=== PATIENT | male | born 1960 | race Caucasian/White ===

== ENCOUNTER → 2019-03-14 | Outpatient (CLI) | payer MEDICARE, MEDICAID ==
[~2019-03-14] MED LIST: ALBU17IN2 IN; BACT800T OR; BENA25CA PO; BUPR15TA OR; CLON-412 PO; CLON1TAB OR; CLOZ100T2 PO; CLOZ100T45 OR; CLOZ200T OR; CLOZ200T PO; CLOZAPINE; COLA100C2 OR; CYMB1CAP PO; CYMBALTA PO; DEPA250T3 OR; DEPA500T OR; DEPA500T2 OR; DIAZ5TAB OR; DOCU100T PO; FLOM0.4C39 OR; HYDR-4274 PO; HYDR50IN3 IM; LEVO75TA2 OR; LEVO88TA2 PO; LOVA1CAP16 PO; MIRALEX OR; MIRALEX PO; NEUR100C OR; NICO21DI4 TD; OXYB5TAB OR; OXYB5TAB4 OR; OXYB5TAB80 PO; PANT40TA2 PO; PAXIL PO; PRIL20CA OR; PROVENTIL INH; SAPHRIS SL; SERO1TAB OR; SEROQUEL PO; TAMS0.4C PO; TERA1CAP3 OR; TERA2CAP OR; TERA2CAP3 OR; TESS100C OR; TRIC145T19 OR; VENL75TA2 OR; VENTAER IN; VENTAER INH; ZYPR10TA PO; ZYPR1TAB4 OR; [UNRECOGNIZED DRUG - CODE] PO; clozaril
[2019-03-14 08:48] LABS: BASO # 0.1 10^3/uL (0.0-0.2); BASO % 0.8 % (0.0-1.0); EOS # 0.2 10^3/uL (0.0-0.50); EOS % 2.5 % (0.0-3.0); HEMATOCRIT 41.2 % (42.0-52.0); HEMOGLOBIN 13.1 g/dl (13.5-17.5); LYMPH # 2.9 10^3/uL (1.5-4.5); LYMPH % 36.4 % (24.0-44.0); MEAN CORPUSCULAR HEMOGLOBIN 31.2 pg (27.0-33.0); MEAN CORPUSCULAR HGB CONC 31.8 g/dl (32.0-36.5); MEAN CORPUSCULAR VOLUME 98.1 fl (80.0-96.0); MONO # 0.9 10^3/uL (0.0-0.8); MONO % 11.1 % (0.0-5.0); NEUTROPHILS # 3.9 10^3/uL (1.8-7.7); NEUTROPHILS % 48.6 % (36.0-66.0); PLATELET COUNT, AUTOMATED 186 10^3/uL (150-450); WHITE BLOOD COUNT 7.9 10^3/uL (4.0-10.0)
[2019-03-16 08:07] LABS: CLOZAPINE 1 242 ng/mL (350-650); CLOZAPINE 2 126 ng/mL (Not Estab.); CLOZAPINE 3 368 ng/mL (.)
== END ==
LOC: M LAB 07:52
PROVIDERS: ATTEND Psychiatry & Neurology Child & Adolescent Psychiatry
DX: Z79.899 Other long term (current) drug therapy (principal)

== ENCOUNTER → 2019-03-29 | Outpatient (REF) | payer MEDICARE, MEDICAID ==
[2019-03-29 18:25] LABS: BASO # 0.1 10^3/uL (0.0-0.2); BASO % 0.7 % (0.0-1.0); EOS # 0.2 10^3/uL (0.0-0.50); EOS % 1.8 % (0.0-3.0); HEMOGLOBIN 14.1 g/dl (13.5-17.5); LYMPH # 2.3 10^3/uL (1.5-4.5); LYMPH % 26.7 % (24.0-44.0); MEAN CORPUSCULAR HEMOGLOBIN 32.1 pg (27.0-33.0); MEAN CORPUSCULAR HGB CONC 32.8 g/dl (32.0-36.5); MEAN CORPUSCULAR VOLUME 97.9 fl (80.0-96.0); MONO % 11.4 % (0.0-5.0); NEUTROPHILS # 5.1 10^3/uL (1.8-7.7); NEUTROPHILS % 58.8 % (36.0-66.0); PLATELET COUNT, AUTOMATED 178 10^3/uL (150-450); RED BLOOD COUNT 4.39 10^6/uL (4.30-6.10); WHITE BLOOD COUNT 8.7 10^3/uL (4.0-10.0)
[2019-03-29 18:38] LABS: ALT/SGPT 24 U/L (12-78); BILIRUBIN,TOTAL 0.3 MG/DL (0.2-1.0); BLOOD UREA NITROGEN 17 MG/DL (7-18); CALCIUM LEVEL 8.4 MG/DL (8.5-10.1); CARBON DIOXIDE LEVEL 28 MEQ/L (21-32); CHLORIDE LEVEL 108 MEQ/L (98-107); CHOLESTEROL LEVEL 151 MG/DL (<200); CHOLESTEROL RISK RATIO 3.145 (<5); GLOMERULAR FILTRATION RATE > 60.0 (>56); GLUCOSE, FASTING 109 MG/DL (70-100); HDL CHOLESTEROL 48 MG/DL (>40); LDL CHOLESTEROL 79 MG/DL (<100); NON-HDL-C 103 MG/DL; POTASSIUM SERUM 4.7 MEQ/L (3.5-5.1); SODIUM LEVEL 141 MEQ/L (136-145); TOTAL PROTEIN 6.4 GM/DL (6.4-8.2); TRIGLYCERIDES LEVEL 121 MG/DL (<150)
[2019-03-29 19:44] LABS: HEMOGLOBIN A1c 5.5 %
== END ==
LOC: M LAB REF 17:57
PROVIDERS: ATTEND Nurse Practitioner Family
DX: Z13.9 Encounter for screening, unspecified (principal); E03.9 Hypothyroidism, unspecified; Z79.899 Other long term (current) drug therapy

== ENCOUNTER → 2019-04-06 | Outpatient (CLI) | payer MEDICARE, MEDICAID ==
[2019-04-06 09:25] LABS: BASO % 0.5 % (0.0-1.0); EOS # 0.2 10^3/uL (0.0-0.50); EOS % 2.3 % (0.0-3.0); HEMATOCRIT 40.9 % (42.0-52.0); HEMOGLOBIN 13.7 g/dl (13.5-17.5); LYMPH # 2.9 10^3/uL (1.5-4.5); LYMPH % 35.6 % (24.0-44.0); MEAN CORPUSCULAR HEMOGLOBIN 32.7 pg (27.0-33.0); MEAN CORPUSCULAR HGB CONC 33.5 g/dl (32.0-36.5); MEAN CORPUSCULAR VOLUME 97.6 fl (80.0-96.0); MONO # 0.9 10^3/uL (0.0-0.8); MONO % 11.3 % (0.0-5.0); NEUTROPHILS # 4.1 10^3/uL (1.8-7.7); NEUTROPHILS % 49.9 % (36.0-66.0); PLATELET COUNT, AUTOMATED 182 10^3/uL (150-450); RED BLOOD COUNT 4.19 10^6/uL (4.30-6.10); WHITE BLOOD COUNT 8.2 10^3/uL (4.0-10.0)
[2019-04-11 08:09] LABS: CLOZAPINE 1 227 ng/mL (350-650); CLOZAPINE 2 114 ng/mL (Not Estab.); CLOZAPINE 3 341 ng/mL (.)
== END ==
LOC: M LAB 08:31
PROVIDERS: ATTEND Psychiatry & Neurology Child & Adolescent Psychiatry
DX: Z51.81 Encounter for therapeutic drug level monitoring (principal); Z79.899 Other long term (current) drug therapy

== ENCOUNTER → 2019-05-02 | Outpatient (CLI) | payer MEDICARE, MEDICAID ==
[2019-05-02 08:54] LABS: BASO # 0.1 10^3/uL (0.0-0.2); BASO % 0.6 % (0.0-1.0); EOS # 0.2 10^3/uL (0.0-0.50); EOS % 1.9 % (0.0-3.0); HEMATOCRIT 39.9 % (42.0-52.0); HEMOGLOBIN 13.4 g/dl (13.5-17.5); LYMPH # 3.2 10^3/uL (1.5-4.5); MEAN CORPUSCULAR HGB CONC 33.6 g/dl (32.0-36.5); MEAN CORPUSCULAR VOLUME 95.2 fl (80.0-96.0); MONO # 1.1 10^3/uL (0.0-0.8); MONO % 11.8 % (0.0-5.0); NEUTROPHILS # 4.8 10^3/uL (1.8-7.7); NEUTROPHILS % 51.3 % (36.0-66.0); PLATELET COUNT, AUTOMATED 163 10^3/uL (150-450); RED BLOOD COUNT 4.19 10^6/uL (4.30-6.10); WHITE BLOOD COUNT 9.4 10^3/uL (4.0-10.0)
[2019-05-05 09:21] LABS: CLOZAPINE 1 224 ng/mL (350-650); CLOZAPINE 2 92 ng/mL (Not Estab.); CLOZAPINE 3 316 ng/mL (.)
== END ==
LOC: M LAB 08:23
PROVIDERS: ATTEND Psychiatry & Neurology Child & Adolescent Psychiatry
DX: Z79.899 Other long term (current) drug therapy (principal)

== ENCOUNTER 2019-05-29 21:22 | Inpatient (IN) | payer MEDICARE, MEDICAID ==
[~2019-05-29] VITALS: Ht 177.8 cm; Wt 80.7 kg
[2019-05-29] MEDS ORDERED: LORazepam 2 MG TAB PO STA (23:27)
[2019-05-29] MEDS ORDERED: DERMABOND TOPICAL SKIN ADHESIVE TOP ONE (23:30)
[2019-05-29] MEDS ORDERED: LIDOCAINE 2% W/EPIN INJ 20ML **PRES FREE INJ ONE (23:30)
[2019-05-30 00:25] LABS: AMPHETAMINES LEVEL URINE NEGATIVE (NEGATIVE); BARBITURATES URINE NEGATIVE (NEGATIVE); BENZODIAZEPINES URINE NEGATIVE (NEGATIVE); CANNABINOIDS URINE NEGATIVE (NEGATIVE); COCAINE METABOLITE URINE NEGATIVE (NEGATIVE); METHADONE URINE NEGATIVE (NEGATIVE); OPIATES URINE NEGATIVE (NEGATIVE); PHENCYCLIDINE URINE NEGATIVE (NEGATIVE)
[2019-05-30 00:52] LABS: BASO % 0.4 % (0.0-1.0); EOS # 0.2 10^3/uL (0.0-0.50); EOS % 1.6 % (0.0-3.0); HEMATOCRIT 39.2 % (42.0-52.0); HEMOGLOBIN 13.5 g/dl (13.5-17.5); LYMPH # 4.2 10^3/uL (1.5-4.5); LYMPH % 39.8 % (24.0-44.0); MEAN CORPUSCULAR HEMOGLOBIN 32.2 pg (27.0-33.0); MEAN CORPUSCULAR HGB CONC 34.4 g/dl (32.0-36.5); MEAN CORPUSCULAR VOLUME 93.6 fl (80.0-96.0); MONO # 1.1 10^3/uL (0.0-0.8); PLATELET COUNT, AUTOMATED 169 10^3/uL (150-450); RED BLOOD COUNT 4.19 10^6/uL (4.30-6.10); WHITE BLOOD COUNT 10.5 10^3/uL (4.0-10.0)
[2019-05-30 01:48] LABS: ACETAMINOPHEN LEVEL < 2.0 UG/ML (10.0-30.0); ALT/SGPT 22 U/L (12-78); BILIRUBIN,DIRECT < 0.1 MG/DL (0.0-0.2); BILIRUBIN,TOTAL 0.2 MG/DL (0.2-1.0); BLOOD UREA NITROGEN 15 MG/DL (7-18); CALCIUM LEVEL 8.5 MG/DL (8.5-10.1); CARBON DIOXIDE LEVEL 29 MEQ/L (21-32); CHLORIDE LEVEL 110 MEQ/L (98-107); CPK CREATINE PHOSPHOKINASE 64 U/L (39-308); CREATININE FOR GFR 1.05 MG/DL (0.70-1.30); ETHYL ALCOHOL (ETHANOL) < 0.003 % (0.000-0.010); GLOMERULAR FILTRATION RATE > 60.0 (>56); GLUCOSE, FASTING 97 MG/DL (70-100); POTASSIUM SERUM 4.1 MEQ/L (3.5-5.1); SALICYLATE LEVEL < 1.7 MG/DL (5.0-30.0); SODIUM LEVEL 143 MEQ/L (136-145); TOTAL PROTEIN 6.1 GM/DL (6.4-8.2)
[2019-05-30] MEDS ORDERED: ACETAMINOPHEN TAB 650MG DOSE (2X325MG) PO PRN (02:30)
[2019-05-30] MEDS ORDERED: MOM 30ML SUSPENSION UDC PO PRN (02:30)
[2019-05-30] MEDS ORDERED: MAALOX 30 ML SUSP *UDC PO PRN (02:30)
[2019-05-30] MEDS ORDERED: DOCU100C16 PO (03:11)
[2019-05-30] MEDS ORDERED: DIVA500T94 PO (03:11)
[2019-05-30] MEDS ORDERED: DOCU100C17 PO (03:11)
[2019-05-30] MEDS ORDERED: ASPI-161 PO (03:11)
[2019-05-30] MEDS ORDERED: CLON-412 PO (03:11)
[2019-05-30] MEDS ORDERED: TRIH5TAB PO (03:11)
[2019-05-30] MEDS ORDERED: SYNT75TA PO (03:11)
[2019-05-30] MEDS ORDERED: PANT40TA3 PO (03:11)
[2019-05-30] MEDS ORDERED: [UNRECOGNIZED DRUG - OTHER] MT (03:11)
[2019-05-30] MEDS ORDERED: DULO1CAP6 PO (03:11)
[2019-05-30] MEDS ORDERED: DIVA250T67 PO (03:11)
[2019-05-30] MEDS ORDERED: VITMTA PO (03:11)
[2019-05-30] MEDS ORDERED: SPIR1CAP INH (03:11)
[2019-05-30] MEDS ORDERED: CLOZ200T PO (03:11)
[2019-05-30] MEDS ORDERED: CLON0.5T2 PO (03:11)
[2019-05-30] MEDS ORDERED: MIRA1POW3 PO (03:11)
[2019-05-30] MEDS ORDERED: FLOM0.4C39 PO (03:11)
[2019-05-30] MEDS ORDERED: OLAN15TA PO (03:11)
[2019-05-30 03:37] VITALS: BP 125/72
--- NOTE | 2019-05-30 14:27 | MHHPEPDOC ---
General Date Of Admission: May 29, 2019 Legal Status: 9.39 Chief Complaint "I cut myself" History of Present Illness HISTORY OF THE PRESENT ILLNESS: Patient is a 58 -year-old , male, with a history of schizoaffective d/o, multiple inpatient admits to psych, multiple SA by OD/cutting/hanging who was brought to ED by [facility] after pt cut his lt forearm 5 times with a razor intensionally (required 23 stitches) due to feeling suicidal per ED. Per ED, pt endorsed depression, anxiety, helplessness, hopelessness, and appeared flat, rocking back and forth in the ED. He denied hallucinations and delusions in the ED. TLS reported to the ED that the patient had been compliant on all his medication. Pt did not state in the ED if his act of cutting was a SA. Past Psychiatric History Previous Psychiatric Diagnosis: schizoaffective d/o diagnosed at 18y/o Previous Psychiatric Admissions: multiple admissions [facility] in past with last 11/13/19. Per records, over 100 psych admission in the past including [facility] in 2012 and [facility] Suicide Attempts: multiple suicide attempts: 3 by hanging, 10 by OD, by cutting self, and has put a gun to his head but not pulled trigger several times in past Psychiatric Follow-up: resides at [facility], med F/U at [facility] Psychiatric medications: Clozaril, clonidine, Cymbalta, Zyprexa, trihexyphenidyl, depakote, klonopin Past Medical History Medical Problems Hypothyroidism, hypertension, hypercholesterolemia, reflux, and BPH. Head Injury: No Seizures: No Hospitalizations: Yes Surgeries: Yes (appendectomy) Family Medical/Psychiatric HX Psychiatric Disorders: Yes (brother) Addiction: No Suicide Attemps/Completions: Yes (father completed suicide. Brother with severe mental illness who completed suicide via overdose October 2012. ) Addiction History nicotine (1 pack of cigarettes per day), alcohol (has not used in 18yrs, hx of DTs), cocaine (in past), opioids (pain pills in past), methamphetamines (in past), other (history of cannabis and LSD use, denies illicit substance use for over 20yrs, utox neg) Social History Childhood: born and raised in [place], 2 parent home, 4 siblings, good childhood Abuse/Trauma:denies Current Living Situation: lives in [place] at [facility] Education: GED Employment: has worked several jobs in the past including on at [employer], a [employer], [employer] and now receives [facility] Social Support: family, [facility] Legal: denies Marital: single, never , no kids Mental Status Examination General Appearance: well groomed, appears stated age, hospital scubs/clothing Build: average Demeanor: very figety (rocking back and forth slightly) Eye Contact: fair Activity: anxious Behavior: cooperative, restless Speech: clear, reg/rate,rhythm,volume Mood: depressed, anxious Mood depressed Affect: constricted, flat, congruent, anxious Thought Process: logical/linear, concrete, depressed Thought Content (Delusions): none reported, other (fleet, passive SI. Denies intent/plan for SI, denies HI, denies AVH) Thought Content (Other): none reported Thought Content (Aggressive): none reported Perception (Hallucinations): none reported Perception (Other): none reported Cognition (Impairment of): none reported Cognition(Intelligence Est.): borderline Oriented: Awake, Alert, Oriented times three Insight: fair Judgment: Fair Diagnoses Schizoaffective disorder, bipolar type generalized anxiety disorder history of polysubstance dependence in term remission A-FIB/CHADSVASC A-FIB History Current/History of A-Fib/PAF?: No Current PO Anticoag Therapy: No Treatment Treatment ordered: NONE Reason Anticoagulant not given: Not indicated/[id number] Assessment Pt seen and states he doesn't know why exactly he cut himself and that maybe he was depressed. States he feels anxious and a bit depressed today but better th an yesterday. Endorses fleeting thoughts of SI "they float in my mind and go out" but denies desire, intent, plan to harm himself. Doesn't regret cutting himself as he feels it's an emotional relief for him and sometimes a cry for help. Denies HI, hallucinations, delusions. Slightly rocking back and forth in chair anxious when seen. Feels his medications are beneficial most of the but not all the time as he become depressed, isolates, and has thoughts of SI. States he goes to AA and likes it, sober 24yrs. Pt currently on depakote but level not order in ED so will have to order depakote level to determine if therapeutic or not as that is most likely the cause of the pt's mood symptoms and he denies psychotic symptoms and does not appear psychotic. He is pleasant and cooperative. Agreeable to restarting his outpatient medication. Initial Treatment Plan 1. Patient was admitted on a 939 status. 2. Complete history was obtained. 3. With patients permission, family will be contacted and database will be expanded. 4. Patients medication regimen will be reviewed and changed accordingly. 5. Patient will be provided with protected environment. 6. Patient will be treated with individual, group, and milieu therapies. 7. Patient will receive supportive psych-education. 8. Discharge planning will commence immediately. 9. Outpatient follow-up treatment will be strongly recommended. 10. The initial treatment plan will focus initially on: * Depression. * Risk for suicide. * Substance abuse. 11. restart outpatient medication, depakote in am, CBC with manual diff, ANC, clozaril levels ESTIMATED LENGTH OF STAY: 5-7 DAYS. TIME SPENT COUNSELING AND COORDINATING INITIAL CARE: 60 minutes. Vital Signs Vital Signs Date Time Temp Pulse Resp B/P (MAP) Pulse Ox O2 Delivery O2 Flow Rate FiO2 05/30/19 03:37 97.0 77 16 125/72 (89) 96 05/30/19 03:15 Room Air Laboratory Data 24H Labs Laboratory Tests 2 05/29/19 22:47: Urine Amphetamines Screen NEGATIVE, Urine Benzodiazepines Screen NEGATIVE, Urine Opiates Screen NEGATIVE, Urine Methadone Screen NEGATIVE, Urine Barbiturates Screen NEGATIVE, Urine Phencyclidine Screen NEGATIVE, Urine Cocaine Metabolite Screen NEGATIVE, Urine Cannabinoids Screen NEGATIVE 05/30/19 00:29: Immature Granulocyte % (Auto) 0.2, White Blood Count 10.5H, Red Blood Count 4.19L, Hemoglobin 13.5, Hematocrit 39.2L, Mean Corpuscular Volume 93.6, Mean Corpuscular Hemoglobin 32.2, Mean Corpuscular Hemoglobin Concent 34.4, Red Cell Distribution Width 12.9, Platelet Count 169, Neutrophils (%) (Auto) 48.0, Lymphocytes (%) (Auto) 39.8, Monocytes (%) (Auto) 10.0H, Eosinophils (%) (Auto) 1.6, Basophils (%) (Auto) 0.4, Neutrophils # (Auto) 5.0, Lymphocytes # (Auto) 4.2, Monocytes # (Auto) 1.1H, Eosinophils # (Auto) 0.2, Basophils # (Auto) 0.0, Nucleated Red Blood Cells % (auto) 0.0, Anion Gap 4L, Glomerular Filtration Rate > 60.0, Calcium Level 8.5, Aspartate Amino Transf (AST/SGOT) 15, Alanine A minotransferase (ALT/SGPT) 22, Alkaline Phosphatase 59, Total Bilirubin 0.2, Direct Bilirubin < 0.1, Total Creatine Kinase 64, Total Protein 6.1L, Albumin 3.0L, Albumin/Globulin Ratio 0.97L, Thyroid Stimulating Hormone (TSH) 7.330H, Salicylates Level < 1.7L, Acetaminophen Level < 2.0L, Ethyl Alcohol Level < 0.003 CBC/BMP Laboratory Tests 05/30/19 00:29 Red Blood Count 4.19 L, Mean Corpuscular Volume 93.6, Mean Corpuscular Hemoglobin 32.2, Mean Corpuscular Hemoglobin Concent 34.4, Red Cell Distribution Width 12.9, Neutrophils (%) (Auto) 48.0, Lymphocytes (%) (Auto) 39.8, Monocytes (%) (Auto) 10.0 H, Eosinophils (%) (Auto) 1.6, Basophils (%) (Auto) 0.4, Neutrophils # (Auto) 5.0, Lymphocytes # (Auto) 4.2, Monocytes # (Auto) 1.1 H, Eosinophils # (Auto) 0.2, Basophils # (Auto) 0.0 Medications Scheduled Aspirin (Aspirin EC) 81 Mg Tablet.dr, 81 MG PO DAILY, (Reported) Clonazepam (Clonazepam) 0.5 Mg Tablet, 0.5 MG PO BID, (Reported) MORNING, 1600 Clonidine HCl (Clonidine HCl) 0.1 Mg Tablet, 0.1 MG PO QHS, (Reported) Clozapine (Clozapine) 200 Mg Tablet, 200 MG PO BID, (Reported) Divalproex Sodium (Divalproex Sodium) 500 Mg Tablet.dr, 500 MG PO BID, (Reported) Divalproex Sodium (Divalproex Sodium) 250 Mg Tablet.dr, 250 MG PO QHS, (Reported) TAKES WITH 500MG FOR 750MG TOTAL AT QHS Docusate Sodium (Docusate Sodium) 100 Mg Capsule, 100 MG PO DAILY, (Reported) Docusate Sodium (Docusate Sodium) 100 Mg Capsule, 200 MG PO QHS, (Reported) Duloxetine Hcl (Duloxetine HCl) 60 Mg Capsule.dr, 60 MG PO BID, (Reported) Levothyroxine Sodium (Synthroid) 75 Mcg Tablet, 75 MCG PO DAILY, (Reported) Multivitamins (Thera M Plus Tablet) 1 Each Tablet, 1 TAB PO DAILY, (Reported) Olanzapine (Olanzapine) 15 Mg Tablet, 15 MG PO QHS, (Reported) Pantoprazole Sodium (Pantoprazole Sodium) 40 Mg Tablet.dr, 40 MG PO DAILY, (Reported) Polyethylene Glycol 3350 (Miralax) 17 Gm Powd.pack, 17 GM PO DAILY, (Reported) Tamsulosin HCl (Flomax) 0.4 Mg Capsule, 0.4 MG PO DAILY, (Reported) Tiotropium [place] (Spiriva) 18 Mcg Cap.w.dev, 1 INHALATION INH DAILY, (Reported) Trihexyphenidyl HCl (Trihexyphenidyl HCl) 5 Mg Tablet, 5 MG PO QHS, (Reported) Scheduled PRN Nicotine Polacrilex (Nicotine Lozenge) 2 Mg Lozenge, 2 MG MT Q3HP PRN for SMOKING CESSATION, (Reported) Allergies Coded Allergies: No Known Drug Allergies (Verified Allergy, Unknown, 05/29/19) haloperidol (Verified Adverse Reaction, Severe, EPS, Difficulty Breathing, 05/29/19) loxapine (Verified Adverse Reaction, Severe, Tounge protrsion, diff breathing, 05/29/19) lithium (Verified Adverse Reaction, Intermediate, speech problems, 05/29/19) JULIO SPENCE DO May 30, 2019 1:18 pm
[2019-05-30] MEDS: TAMSULOSIN 0.4 MG CAP PO SCH (15:19)
[2019-05-30] MEDS: MULTIVITAMINS/MINERALS THERAP 1 TAB PO SCH (15:19)
[2019-05-30] MEDS: DOCUSATE SODIUM 100 MG CAP PO SCH (15:19)
[2019-05-30] MEDS: PANTOPRAZOLE 40MG TAB (PROTONIX) PO SCH (15:19)
[2019-05-30] MEDS: clonazePAM 0.5 MG TAB PO SCH (15:19)
[2019-05-30] MEDS ORDERED: DIVALPROEX 500 MG TAB PO SCH (16:00)
[2019-05-30 18:15] VITALS: BP 117/71
[2019-05-30] MEDS: DULoxetine 30 MG CAP (CYMBALTA) PO SCH (21:49)
[2019-05-30] MEDS: DIVALPROEX 500 MG TAB PO SCH (21:49)
[2019-05-30] MEDS: cloNIDine 0.1 MG TAB PO SCH (21:50)
[2019-05-30] MEDS: TRIHEXYPHENIDYL 2 MG TAB PO SCH (21:50)
[2019-05-30] MEDS: DIVALPROEX 250 MG TAB PO SCH (21:50)
[2019-05-30] MEDS: OLANZapine 5 MG TAB PO SCH (21:50)
[2019-05-30] MEDS: cloZAPine 100 MG TAB (S0136) PO SCH (21:51)
--- NOTE | 2019-05-30 22:59 | HPEPDOC ---
[facility] Medical History & Physical Date of Admission May 30, 2019 Date of Service: May 30, 2019 History and Physical CHIEF COMPLAINT: suicide attempt by cutting supinator aspect of forearm HISTORY OF PRESENT ILLNESS: Pt is 58 y/o M with long standing Hx of schizoaffective disorder, bipolar type who admitted to [facility] s/p suicide attempt by cutting his forearm. Pt presented to ED, no profuse bleeding noted, wound was sutured. Upon my encounter pt is awake and alert, pt is oriented with memory , comprehension and speech intact. Denies any medical complaints. Denies any chronic cardiac, lung or GI condition. Denies any chest pain or palpitations. Denies any dyspnea tachypnea. Rt forearm dressing was changed with aid of RN, wound was irrigated with NS, antiseptic and new dressing applied. PAST MEDICAL HISTORY: 1.Hypothyroidism 2.Hyperlipidemia 3.HTN 4.BPH PAST SURGICAL HISTORY: 1.appendectomy SOCIAL HISTORY: denies ETOH, illicit drug use FAMILY HISTORY: denies any family history ALLERGIES: Please see below. REVIEW OF SYSTEMS: 10 point negative except in HPI HOME MEDICATIONS: Please see below. PHYSICAL EXAMINATION: VITAL SIGNS: please see below GENERAL APPEARANCE:AAOx3 HEENT: EOMI ANGEL no icterus neck supple no JVD CARDIOVASCULAR: S1 S2 no murmur LUNGS:clear bilat ABDOMEN:soft NT ND MUSCULOSKELETAL:no joint deformity EXTREMITIES: suture on forearm no bleeding in process of healing NEUROLOGICAL: intact PSYCHIATRIC: mood affect appropriate LABORATORY DATA: See below. MICROBIOLOGY: Please see below. Vital Signs Date Time Temp Pulse Resp B/P (MAP) Pulse Ox O2 Delivery O2 Flow Rate FiO2 05/30/19 21:50 117/71 05/30/19 18:15 97.5 83 18 117/71 (86) 05/30/19 03:37 97.0 77 16 125/72 (89) 96 05/30/19 03:15 97.0 74 16 134/66 (88) 99 Room Air Current Medications Medications (Trade) Dose Ordered Sig/Billy Route PRN Reason Start Time Stop Time Status Last Admin Dose Admin Clonazepam (KlonoPIN) 0.5 mg BID@0900,1600 PO 05/30/19 16:00 05/30/19 15:19 0.5 MG Clonidine HCl (Catapres) 0.1 mg QHS PO 05/30/19 21:00 7/16/19 21:50 0.1 MG Clozapine (Clozaril) 200 mg BID PO 05/30/19 21:00 05/30/19 21:51 200 MG Divalproex Sodium (Depakote) 500 mg BID PO 05/30/19 21:00 05/30/19 21:49 500 MG Docusate Sodium (Colace) 100 mg DAILY PO 05/30/19 09:00 05/30/19 15:19 100 MG Duloxetine HCl (Cymbalta) 60 mg BID PO 05/30/19 21:00 05/30/19 21:49 60 MG Multivitamins (Theragram-M) 1 tab DAILY PO 05/30/19 09:00 05/30/19 15:19 1 TAB Olanzapine (ZyPREXA) 15 mg QHS PO 05/30/19 21:00 05/30/19 21:50 15 MG Pantoprazole Sodium (Protonix) 40 mg DAILY PO 05/30/19 09:00 05/30/19 15:19 40 MG Tamsulosin HCl (Flomax) 0.4 mg DAILY PO 05/30/19 09:00 05/30/19 15:19 0.4 MG Trihexyphenidyl HCl (Artane) 5 mg QHS PO 05/30/19 21:00 05/30/19 21:50 5 MG A/P 1-Self Injury hemostasis applied wound is sutured, dressing checked in process of healing daily dressing change with NS irrigation and antiseptic 2-Hypothyroidism TSH elevated may increase levothyroxin dose to 80mcg check TSH in 4 weeks 3-BPH Cont Flomax 4-Cont psych meds as per primary team Thank you for the consult. Vital Signs Vital Signs Date Time Temp Pulse Resp B/P (MAP) Pulse Ox O2 Delivery O2 Flow Rate FiO2 05/30/19 21:50 117/71 05/30/19 18:15 97.5 83 18 05/30/19 03:37 96 05/30/19 03:15 Room Air Laboratory Data Labs 24H Laboratory Tests 2 05/30/19 00:29: Immature Granulocyte % (Auto) 0.2, White Blood Count 10.5H, Red Blood Count 4.19L, Hemoglobin 13.5, Hematocrit 39.2L, Mean Corpuscular Volume 93.6, Mean Corpuscular Hemoglobin 32.2, Mean Corpuscular Hemoglobin Concent 34.4, Red Cell Distribution Width 12.9, Platelet Count 169, Neutrophils (%) (Auto) 48.0, Lymphocytes (%) (Auto) 39.8, Monocytes (%) (Auto) 10.0H, Eosinophils (%) (Auto) 1.6, Basophils (%) (Auto) 0.4, Neutrophils # (Auto) 5.0, Lymphocytes # (Auto) 4.2, Monocytes # (Auto) 1.1H, Eosinophils # (Auto) 0.2, Basophils # (Auto) 0.0, Nucleated Red Blood Cells % (auto) 0.0, Anion Gap 4L, Glomerular Filtration Rate > 60.0, Calcium Level 8.5, Aspartate Amino Transf (AST/SGOT) 15, Alanine Aminotransferase (ALT/SGPT) 22, Alkaline Phosphatase 59, Total Bilirubin 0.2, Direct Bilirubin < 0.1, Total Creatine Kinase 64, Total Protein 6.1L, Albumin 3.0L, Albumin/Globulin Ratio 0.97L, Thyroid Stimulating Hormone (TSH) 7.330H, Salicylates Level < 1.7L, Acetaminophen Level < 2.0L, Ethyl Alcohol Level < 0.003 CBC/BMP Laboratory Tests 05/30/19 00:29 Red Blood Count 4.19 L, Mean Corpuscular Volume 93.6, Mean Corpuscular Hemoglobin 32.2, Mean Corpuscular Hemoglobin Concent 34.4, Red Cell Distribution Width 12.9, Neutrophils (%) (Auto) 48.0, Lymphocytes (%) (Auto) 39.8, Monocytes (%) (Auto) 10.0 H, Eosinophils (%) (Auto) 1.6, Basophils (%) (Auto) 0.4, Neutrophils # (Auto) 5.0, Lymphocytes # (Auto) 4.2, Monocytes # (Auto) 1.1 H, Eosinophils # (Auto) 0.2, Basophils # (Auto) 0.0 Home Medications Scheduled Aspirin (Aspirin EC) 81 Mg Tablet.dr, 81 MG PO DAILY Clonazepam (Clonazepam) 0.5 Mg Tablet, 0.5 MG PO BID MORNING, 1600 Clonidine HCl (Clonidine HCl) 0.1 Mg Tablet, 0.1 MG PO QHS Clozapine (Clozapine) 200 Mg Tablet, 200 MG PO BID Divalproex Sodium (Divalproex Sodium) 500 Mg Tablet.dr, 500 MG PO BID Divalproex Sodium (Divalproex Sodium) 250 Mg Tablet.dr, 250 MG PO QHS TAKES WITH 500MG FOR 750MG TOTAL AT QHS Docusate Sodium (Docusate Sodium) 100 Mg Capsule, 100 MG PO DAILY Docusate Sodium (Docusate Sodium) 100 Mg Capsule, 200 MG PO QHS Duloxetine Hcl (Duloxetine HCl) 60 Mg Capsule.dr, 60 MG PO BID Levothyroxine Sodium (Synthroid) 75 Mcg Tablet, 75 MCG PO DAILY Multivitamins (Thera M Plus Tablet) 1 Each Tablet, 1 TAB PO DAILY Olanzapine (Olanzapine) 15 Mg Tablet, 15 MG PO QHS Pantoprazole Sodium (Pantoprazole Sodium) 40 Mg Tablet.dr, 40 MG PO DAILY Polyethylene Glycol 3350 (Miralax) 17 Gm Powd.pack, 17 GM PO DAILY Tamsulosin HCl (Flomax) 0.4 Mg Capsule, 0.4 MG PO DAILY Tiotropium [place] (Spiriva) 18 Mcg Cap.w.dev, 1 INHALATION INH DAILY Trihexyphenidyl HCl (Trihexyphenidyl HCl) 5 Mg Tablet, 5 MG PO QHS Scheduled PRN Nicotine Polacrilex (Nicotine Lozenge) 2 Mg Lozenge, 2 MG MT Q3HP PRN for SMOKING CESSATION Allergies Coded Allergies: haloperidol (Verified Adverse Reaction, Severe, EPS, Difficulty Breathing, 05/29/19) loxapine (Verified Adverse Reaction, Severe, Tounge protrsion, diff breathing, 05/29/19) lithium (Verified Adverse Reaction, Intermediate, speech problems, 05/29/19) A-FIB/CHADSVASC A-FIB History Current/History of A-Fib/PAF?: MOISÉS Sweet MD May 30, 2019 22:59
[2019-05-31] MEDS: LEVOTHYROXINE 75MCG TABLET (0.075MG) PO SCH (06:21)
[2019-05-31 07:00] VITALS: BP 103/69
[2019-05-31 07:08] LABS: BASO # 0.1 10^3/uL (0.0-0.2); BASO % 0.6 % (0.0-1.0); EOS # 0.2 10^3/uL (0.0-0.50); HEMATOCRIT 40.6 % (42.0-52.0); HEMOGLOBIN 13.7 g/dl (13.5-17.5); LYMPH # 3.7 10^3/uL (1.5-4.5); LYMPH % 42.1 % (24.0-44.0); MEAN CORPUSCULAR HEMOGLOBIN 32.5 pg (27.0-33.0); MEAN CORPUSCULAR HGB CONC 33.7 g/dl (32.0-36.5); MEAN CORPUSCULAR VOLUME 96.2 fl (80.0-96.0); NEUTROPHILS # 3.9 10^3/uL (1.8-7.7); PLATELET COUNT, AUTOMATED 163 10^3/uL (150-450); RED BLOOD COUNT 4.22 10^6/uL (4.30-6.10); WHITE BLOOD COUNT 8.8 10^3/uL (4.0-10.0)
[2019-05-31] MEDS: MULTIVITAMINS/MINERALS THERAP 1 TAB PO SCH (09:52)
[2019-05-31] MEDS: PANTOPRAZOLE 40MG TAB (PROTONIX) PO SCH (09:52)
[2019-05-31] MEDS: DOCUSATE SODIUM 100 MG CAP PO SCH (09:52)
[2019-05-31] MEDS: cloZAPine 100 MG TAB (S0136) PO SCH ×2 (09:52→21:34)
[2019-05-31] MEDS: clonazePAM 0.5 MG TAB PO SCH ×2 (09:52→16:04)
[2019-05-31] MEDS: DULoxetine 30 MG CAP (CYMBALTA) PO SCH (09:53)
[2019-05-31] MEDS: DIVALPROEX 500 MG TAB PO SCH ×2 (09:54→21:34)
[2019-05-31] MEDS: TAMSULOSIN 0.4 MG CAP PO SCH (10:00)
[2019-05-31] MEDS: TIOTROPIUM INHALER/CAPSULE (SPIRIVA) INH SCH (10:16)
--- NOTE | 2019-05-31 10:26 | MHIPNPDOC ---
[facility] Progress Note Progress Note DATE OF SERVICE: 05/31/19 HISTORY: Patient is a 58 -year-old , male, with a history of schizoaffective d/o, multiple inpatient admits to psych, multiple SA by OD/cutting/hanging who was brought to ED by [facility] after pt cut his lt forearm 5 times with a razor intensionally (required 23 stitches) due to feeling suicidal per ED. Per ED, pt endorsed depression, anxiety, helplessness, hopelessness, and appeared flat, rocking back and forth in the ED. He denied hallucinations and delusions in the ED. TLS reported to the ED that the patient had been compliant on all his medication. Pt did not state in the ED if his act of cutting was a SA. VITAL SIGNS: See below. NEW TEST RESULTS: ANC 3,942.8 wnl, TSH 7.33, Depakote level 71.0 (therapeutic) CURRENT MEDICATIONS: See below. MENTAL STATUS EXAMINATION: General Appearance: well groomed, appears stated age, hospital scrubs/clothing Build: average Demeanor: very fidgety (rocking back and forth slightly) Eye Contact: fair Activity: anxious Behavior: cooperative, restless Speech: clear, reg/rate,rhythm,volume Mood: depressed, anxious Mood depressed Affect: constricted, flat, congruent, anxious Thought Process: logical/linear, concrete, depressed Thought Content (Delusions): none reported, other (fleet, passive SI. Denies intent/plan for SI, denies HI, denies AVH) Thought Content (Other): none reported Thought Content (Aggressive): none reported Perception (Hallucinations): none reported Perception (Other): none reported Cognition (Impairment of): none reported Cognition(Intelligence Est.): borderline Oriented: Awake, Alert, Oriented times three Insight: poor Judgment: poor DIAGNOSES: Schizoaffective disorder, bipolar type generalized anxiety disorder history of polysubstance dependence in term remission ASSESSMENT:Pt seen and states that his mood is depressed and meds not helping. He appears depressed and flat. Denies SI and thoughts to harm self. States he slept well last night. Feels he is tolerating his medications. He is attending groups and finding them helpful. He denies SI/HI, hallucinations, delusions. Pt feels safe here MANAGEMENT PLAN: clozaril level pending, get thyroid panel as TSH elevated. Decrease cymbalta to 60mg daily, start nortriptyline 25mg qhs for depression/pain, will monitor pt with serotonin medications with vitals q6hr due to risk serotonin syndrome. Medication: Clonazepam 0.5 mg BID@0900,1600 Clonidine 0.1 mg QHS Clozapine 200 mg BID Depakote 500mg qam and 750 mg QHS Cymbalta 60 mg daily ZyPREXA 15 mg QHS Trazodone 50 mg QHSP PRN PO INSOMNIA Trihexyphenidyl 5 mg QHS nortriptyline 25mg qhs for depression/pain TIME SPENT: 30 minutes. Vital Signs Vital Signs Date Time Temp Pulse Resp B/P (MAP) Pulse Ox O2 Delivery O2 Flow Rate FiO2 05/31/19 07:00 97.1 78 16 103/69 (80) 05/30/19 03:37 96 05/30/19 03:15 Room Air Laboratory Data 24H Labs Laboratory Tests 2 05/31/19 06:51: Immature Granulocyte % (Auto) 0.3, White Blood Count 8.8, Red Blood Count 4.22L, Hemoglobin 13.7, Hematocrit 40.6L, Mean Corpuscular Volume 96.2H, Mean Corpuscular Hemoglobin 32.5, Mean Corpuscular Hemoglobin Concent 33.7, Red Cell Distribution Width 13.0, Platelet Count 163, Neutrophils (%) (Auto) 44.0, Lymphocytes (%) (Auto) 42.1, Monocytes (%) (Auto) 11.0H, Eosinophils (%) (Auto) 2.0, Basophils (%) (Auto) 0.6, Neutrophils # (Auto) 3.9, Lymphocytes # (Auto) 3.7, Monocytes # (Auto) 1.0H, Eosinophils # (Auto) 0.2, Basophils # (Auto) 0.1, Nucleated Red Blood Cells % (auto) 0.0 05/31/19 07:00: Valproic Acid (Depakene) Level 71.0 CBC/BMP Laboratory Tests 05/31/19 06:51 Red Blood Count 4.22 L, Mean Corpuscular Volume 96.2 H, Mean Corpuscular Hemoglobin 32.5, Mean Corpuscular Hemoglobin Concent 33.7, Red Cell Distribution Width 13.0, Neutrophils (%) (Auto) 44.0, Lymphocytes (%) (Auto) 42.1, Monocytes (%) (Auto) 11.0 H, Eosinophils (%) (Auto) 2.0, Basophils (%) (Auto) 0.6, Neutrophils # (Auto) 3.9, Lymphocytes # (Auto) 3.7, Monocytes # (Auto) 1.0 H, Eosinophils # (Auto) 0.2, Basophils # (Auto) 0.1 Current Medications Current Medications Acetaminophen (Tylenol Tab) 650 mg Q6HP PRN PO HEADACHE or DISCOMFORT; Start 05/30/19 at 02:30 Al Hydrox/Mg Hydrox/Simethicone (Mylanta) 30 ml Q4HP PRN PO HEARTBURN/INDIGESTION; Start 05/30/19 at 02:30 Clonazepam (KlonoPIN) 0.5 mg BID@0900,1600 PO Last administered on 05/31/19at 09:52; Start 05/30/19 at 16:00 Clonidine HCl (Catapres) 0.1 mg QHS PO Last administered on 05/30/19at 21:50; Start 05/30/19 at 21:00 Clozapine (Clozaril) 200 mg BID PO Last administered on 05/31/19 09:52; Start 05/30/19 at 21:00 Divalproex Sodium (Depakote) 250 mg QHS PO Last administered on 05/30/19at 21:50; Start 05/30/19 at 21:00 Divalproex Sodium (Depakote) 500 mg BID PO Last administered on 05/31/19at 09:5 4; Start 05/30/19 at 21:00 Divalproex Sodium (Depakote) 500 mg BID@0900,1600 PO ; Start 05/30/19 at 16:00; Status Cancel Docusate Sodium (Colace) 100 mg DAILY PO Last administered on 05/31/19 09:52; Start 05/30/19 at 09:00 Duloxetine HCl (Cymbalta) 60 mg BID PO Last administered on 05/31/19at 09:53; Start 05/30/19 at 21:00 Home Med (Med Rec Complete!) ASDIRECTED XX ; Start 05/30/19 at 03:15; Stop 05/30/19 at 03:15; Status DC Levothyroxine Sodium (Synthroid) 75 mcg DAILY@0600 PO Last administered on 05/31/19at 06:21; Start 05/31/19 at 06:00 Lorazepam (Ativan) 2 mg STAT STAT PO Last administered on 05/29/19at 23:39; Start 05/29/19 at 23:27; Stop 05/29/19 at 23:29; Status DC Magnesium Hydroxide (Milk Of Magnesia) 30 ml DAILYPRN PRN PO CONSTIPATION; Start 05/30/19 at 02:30 Multivitamins (Theragram-M) 1 tab DAILY PO Last administered on 05/31/19at 09:52; Start 05/30/19 at 09:00 Olanzapine (ZyPREXA) 15 mg QHS PO Last administered on 05/30/19at 21:50; Start 05/30/19 at 21:00 Pantoprazole Sodium (Protonix) 40 mg DAILY PO Last administered on 05/31/19at 09:52; Start 05/30/19 at 09:00 Tamsulosin HCl (Flomax) 0.4 mg DAILY PO Last administered on 05/30/19 15:19; Start 05/30/19 at 09:00 Tiotropium [place] (Spiriva Handihaler) 1 inhalation DAILY@0800 INH ; Start 05/31/19 at 08:00 Trazodone HCl (Desyrel) 50 mg QHSP PRN PO INSOMNIA; Start 05/30/19 at 02:30 Trihexyphenidyl HCl (Artane) 5 mg QHS PO Last administered on 05/30/19at 21:50; Start 05/30/19 at 21:00 Allergies Coded Allergies: haloperidol (Verified Adverse Reaction, Severe, EPS, Difficulty Breathing, 05/29/19) loxapine (Verified Adverse Reaction, Severe, Tounge protrsion, diff breathing, 05/29/19) lithium (Verified Adverse Reaction, Intermediate, speech problems, 05/15 04/02) JULIO SPENCE DO May 31, 2019 10:26 am
[2019-05-31 10:56] LABS: FREE THYROXINE INDEX 2.9 % (1.4-3.8); THYROXINE (T4) 8.1 UG/DL (4.5-12.0)
[2019-05-31] MEDS: NICOTINE POLACRILEX 2 MG GUM PO PRN ×2 (17:24→21:33)
[2019-05-31 18:17] VITALS: BP 109/51
[2019-05-31] MEDS: cloNIDine 0.1 MG TAB PO SCH (21:33)
[2019-05-31] MEDS: DIVALPROEX 250 MG TAB PO SCH (21:34)
[2019-05-31] MEDS: OLANZapine 5 MG TAB PO SCH (21:34)
[2019-05-31] MEDS: TRIHEXYPHENIDYL 2 MG TAB PO SCH (21:34)
[2019-05-31] MEDS: NORTRIPTYLINE 25 MG CAP PO SCH (21:34)
[2019-06-01] MEDS: LEVOTHYROXINE 75MCG TABLET (0.075MG) PO SCH (05:50)
[2019-06-01 06:45] VITALS: BP 90/60
[2019-06-01] MEDS: cloZAPine 100 MG TAB (S0136) PO SCH ×2 (08:48→21:18)
[2019-06-01] MEDS: clonazePAM 0.5 MG TAB PO SCH ×2 (08:48→15:54)
[2019-06-01] MEDS: TAMSULOSIN 0.4 MG CAP PO SCH (08:48)
[2019-06-01] MEDS: DIVALPROEX 500 MG TAB PO SCH ×2 (08:49→21:17)
[2019-06-01] MEDS: PANTOPRAZOLE 40MG TAB (PROTONIX) PO SCH (08:49)
[2019-06-01] MEDS: NICOTINE POLACRILEX 2 MG GUM PO PRN ×3 (08:49→17:54)
[2019-06-01] MEDS: DULoxetine 30 MG CAP (CYMBALTA) PO SCH (08:49)
[2019-06-01] MEDS: MULTIVITAMINS/MINERALS THERAP 1 TAB PO SCH (08:49)
[2019-06-01] MEDS: DOCUSATE SODIUM 100 MG CAP PO SCH (08:49)
[2019-06-01] MEDS: TIOTROPIUM INHALER/CAPSULE (SPIRIVA) INH SCH (08:49)
--- NOTE | 2019-06-01 10:01 | MHIPNPDOC ---
[facility] Progress Note Progress Note DATE OF SERVICE: 06/01/19 HISTORY: Patient is a 58 -year-old , male, with a history of schizoaffective d/o, multiple inpatient admits to [facility], multiple SA by OD/cutting/hanging who was brought to ED by TLS after pt cut his lt forearm 5 times with a razor intensionally (required 23 stitches) due to feeling suicidal per ED. Per ED, pt endorsed depression, anxiety, helplessness, hopelessness, and appeared flat, rocking back and forth in the ED. He denied hallucinations and delusions in the ED. TLS reported to the ED that the patient had been compliant on all his medication. Pt did not state in the ED if his act of cutting was a SA. VITAL SIGNS: See below. NEW TEST RESULTS: ANC 3,942.8 wnl, TSH 7.33, Depakote level 71.0 (therapeutic) CURRENT MEDICATIONS: See below. MENTAL STATUS EXAMINATION: General Appearance: well groomed, appears stated age, hospital scrubs/clothing Build: average Demeanor: cooperative Eye Contact: fair Activity: average Behavior: cooperative Speech: clear, reg/rate,rhythm,volume Mood: less depressed, less anxious Mood better Affect: improved range, congruent, anxious Thought Process: logical/linear, concrete, depressed Thought Content (Delusions): none reported, denies SI/HI, denies AVH Thought Content (Other): none reported Thought Content (Aggressive): none reported Perception (Hallucinations): none reported Perception (Other): none reported Cognition (Impairment of): none reported Cognition(Intelligence Est.): borderline Oriented: Awake, Alert, Oriented times three Insight: poor Judgment: poor DIAGNOSES: Schizoaffective disorder, bipolar type generalized anxiety disorder history of polysubstance dependence in term remission ASSESSMENT:Pt seen and states that his mood is better today and he's no longer having thoughts of suicide since he was started on nortriptyline last night. He does appear to have improved range and is less depressed, no longer flat. He is more active on the unit and the milieu this morning due to feeling better. Denies SI and thoughts to harm self. States he slept well last night. Feels he is tolerating his medications. He is attending groups and finding them helpful. He denies SI/HI, hallucinations, delusions. Pt feels safe here MANAGEMENT PLAN: clozaril level pending, get thyroid panel as TSH elevated. Decrease cymbalta to 60mg daily, start nortriptyline 25mg qhs for depression/pain, will monitor pt with serotonin medications with vitals q6hr due to risk serotonin syndrome. Medication: Clonazepam 0.5 mg BID@0900,1600 Clonidine 0.1 mg QHS Clozapine 200 mg BID Depakote 500mg qam and 750 mg QHS Cymbalta 60 mg daily ZyPREXA 15 mg QHS Trazodone 50 mg QHSP PRN PO INSOMNIA Trihexyphenidyl 5 mg QHS nortriptyline 25mg qhs for depression/pain TIME SPENT: 30 minutes. Vital Signs Vital Signs Date Time Temp Pulse Resp B/P (MAP) Pulse Ox O2 Delivery O2 Flow Rate FiO2 06/01/19 06:45 98.4 71 12 90/60 (70) 05/30/19 03:37 96 05/30/19 03:15 Room Air Current Medications Current Medications Acetaminophen (Tylenol Tab) 650 mg Q6HP PRN PO HEADACHE or DISCOMFORT; Start 05/30/19 at 02:30 Al Hydrox/Mg Hydrox/Simethicone (Mylanta) 30 ml Q4HP PRN PO HEARTBURN/INDIGESTION; Start 05/30/19 at 02:30 Clonazepam (KlonoPIN) 0.5 mg BID@0900,1600 PO Last administered on 06/01/19at 08:48; Start 05/30/19 at 16:00 Clonidine HCl (Catapres) 0.1 mg QHS PO Last administered on 05/31/19at 21:33; Start 05/30/19 at 21:00 Clozapine (Clozaril) 200 mg BID PO Last administered on 06/01/19at 08:48; Start 05/30/19 at 21:00 Divalproex Sodium (Depakote) 250 mg QHS PO Last administered on 05/31/19at 21:34; Start 05/30/19 at 21:00 Divalproex Sodium (Depakote) 500 mg BID PO Last administered on 06/01/19at 08:49; Start 05/30/19 at 21:00 Divalproex Sodium (Depakote) 500 mg BID@0900,1600 PO ; Start 05/30/19 at 16:00; Status Cancel Docusate Sodium (Colace) 100 mg DAILY PO Last administered on 06/01/19 08:49; Start 05/30/19 at 09:00 Duloxetine HCl (Cymbalta) 60 mg BID PO Last administered on 05/31/19at 09:53; Start 05/30/19 at 21:00; Stop 05/31/19 at 10:26; Status DC Duloxetine HCl (Cymbalta) 60 mg DAILY PO Last administered on 06/01/19 08:49; Start 06/01/19 at 09:00 Home Med (Med Rec Complete!) ASDIRECTED XX ; Start 05/30/19 at 03:15; Stop 05/15 05/03 at 03:15; Status DC Levothyroxine Sodium (Synthroid) 75 mcg DAILY@0600 PO Last administered on 06/01/19at 05:50; Start 05/31/19 at 06:00 Lorazepam (Ativan) 2 mg STAT STAT PO Last administered on 05/29/19at 23:39; Start 05/29/19 at 23:27; Stop 05/29/19 at 23:29; Status DC Magnesium Hydroxide (Milk Of Magnesia) 30 ml DAILYPRN PRN PO CONSTIPATION; Start 05/30/19 at 02:30 Multivitamins (Theragram-M) 1 tab DAILY PO Last administered on 06/01/19 08:49; Start 05/30/19 at 09:00 Nicotine (Nicorette) 2 mg Q4HP PRN PO NICOTINE WITHDRAWAL Last administered on 06/01/19 08:49; Start 05/31/19 at 17:00 Nortriptyline HCl (Pamelor) 25 mg QHS PO Last administered on 05/31/19 21:34; Start 05/31/19 at 21:00 Olanzapine (ZyPREXA) 15 mg QHS PO Last administered on 05/31/19 21:34; Start 05/30/19 at 21:00 Pantoprazole Sodium (Protonix) 40 mg DAILY PO Last administered on 06/01/19 08:49; Start 05/30/19 at 09:00 Tamsulosin HCl (Flomax) 0.4 mg DAILY PO Last administered on 06/01/19at 08:48; Start 7/16/19 at 09:00 Tiotropium [place] (Spiriva Handihaler) 1 inhalation DAILY@0800 INH Last administered on 06/01/19at 08:49; Start 05/31/19 at 08:00 Trazodone HCl (Desyrel) 50 mg QHSP PRN PO INSOMNIA; Start 05/30/19 at 02:30 Trihexyphenidyl HCl (Artane) 5 mg QHS PO Last administered on 05/31/19at 21:34; Start 05/30/19 at 21:00 Allergies Coded Allergies: haloperidol (Verified Adverse Reaction, Severe, EPS, Difficulty Breathing, 05/29/19) loxapine (Verified Adverse Reaction, Severe, Tounge protrsion, diff breathing, 05/29/19) lithium (Verified Adverse Reaction, Intermediate, speech problems, 05/29/19) JULIO SPENCE DO Jun 01, 2019 10:01 am
[2019-06-01 18:00] VITALS: BP 117/77
[2019-06-01] MEDS: TRIHEXYPHENIDYL 2 MG TAB PO SCH (21:16)
[2019-06-01] MEDS: cloNIDine 0.1 MG TAB PO SCH (21:17)
[2019-06-01] MEDS: NORTRIPTYLINE 25 MG CAP PO SCH (21:18)
[2019-06-01] MEDS: OLANZapine 5 MG TAB PO SCH (21:18)
[2019-06-01] MEDS: traZODone 50 MG TAB PO PRN (21:18)
[2019-06-01] MEDS: DIVALPROEX 250 MG TAB PO SCH (21:18)
[2019-06-02 00:06] LABS: CLOZAPINE 1 273 ng/mL (350-650); CLOZAPINE 2 160 ng/mL (Not Estab.); CLOZAPINE 3 433 ng/mL (.)
[2019-06-02] MEDS: LEVOTHYROXINE 75MCG TABLET (0.075MG) PO SCH (05:59)
[2019-06-02 06:40] VITALS: BP 90/52
[2019-06-02] MEDS: TAMSULOSIN 0.4 MG CAP PO SCH (08:29)
[2019-06-02] MEDS: MULTIVITAMINS/MINERALS THERAP 1 TAB PO SCH (08:29)
[2019-06-02] MEDS: DULoxetine 30 MG CAP (CYMBALTA) PO SCH (08:29)
[2019-06-02] MEDS: clonazePAM 0.5 MG TAB PO SCH ×2 (08:29→15:51)
[2019-06-02] MEDS: DOCUSATE SODIUM 100 MG CAP PO SCH (08:29)
[2019-06-02] MEDS: DIVALPROEX 500 MG TAB PO SCH ×2 (08:29→21:17)
[2019-06-02] MEDS: cloZAPine 100 MG TAB (S0136) PO SCH ×2 (08:29→21:18)
[2019-06-02] MEDS: PANTOPRAZOLE 40MG TAB (PROTONIX) PO SCH (08:29)
[2019-06-02] MEDS: TIOTROPIUM INHALER/CAPSULE (SPIRIVA) INH SCH (08:29)
[2019-06-02] MEDS: NICOTINE POLACRILEX 2 MG GUM PO PRN ×4 (08:31→21:23)
--- NOTE | 2019-06-02 09:50 | MHIPNPDOC ---
[facility] Progress Note Progress Note DATE OF SERVICE: 06/02/19 HISTORY: Patient is a 58 -year-old , male, with a history of schizoaffective d/o, multiple inpatient admits to [facility], multiple SA by OD/cutting/hanging who was brought to ED by TLS after pt cut his lt forearm 5 times with a razor intensionally (required 23 stitches) due to feeling suicidal per ED. Per ED, pt endorsed depression, anxiety, helplessness, hopelessness, and appeared flat, rocking back and forth in the ED. He denied hallucinations and delusions in the ED. TLS reported to the ED that the patient had been compliant on all his medication. Pt did not state in the ED if his act of cutting was a SA. VITAL SIGNS: See below. NEW TEST RESULTS: ANC 3,942.8 wnl, TSH 7.33, Depakote level 71.0 (therapeutic) CURRENT MEDICATIONS: See below. MENTAL STATUS EXAMINATION: General Appearance: well groomed, appears stated age, hospital scrubs/clothing Build: average Demeanor: cooperative Eye Contact: fair Activity: average Behavior: cooperative Speech: clear, reg/rate,rhythm,volume Mood: euthymic, full Mood "good" Affect: improved range, congruent Thought Process: logical/linear, concrete Thought Content (Delusions): none reported, denies SI/HI, denies AVH Thought Content (Other): none reported Thought Content (Aggressive): none reported Perception (Hallucinations): none reported Perception (Other): none reported Cognition (Impairment of): none reported Cognition(Intelligence Est.): borderline Oriented: Awake, Alert, Oriented times three Insight: limited Judgment: limited DIAGNOSES: Schizoaffective disorder, bipolar type generalized anxiety disorder history of polysubstance dependence in term remission ASSESSMENT:Pt seen and states that his mood is good today and he denies thoughts of suicide since he was started on nortriptyline. States he's tolerating it well and finding it beneficial. He does appear to have improved range and appears euthymic He is more active on the unit and the milieu, socializing and playing games with peer pt's. Denies SI and thoughts to harm self. States he slept well last night. Feels he is tolerating his medications. He is attending groups and finding them helpful. He denies SI/HI, hallucinations, delusions. Pt feels safe here MANAGEMENT PLAN: clozaril level pending, get thyroid panel as TSH elevated. Will stop cymbalta tomorrow and increase nortriptyline tomorrow to limit risk of serotonin syndrome and treat depression Medication: Clonazepam 0.5 mg BID@0900,1600 Clonidine 0.1 mg QHS Clozapine 200 mg BID Depakote 500mg qam and 750 mg QHS Cymbalta 60 mg daily ZyPREXA 15 mg QHS Trazodone 50 mg QHSP PRN PO INSOMNIA Trihexyphenidyl 5 mg QHS nortriptyline 25mg qhs for depression/pain TIME SPENT: 30 minutes. Vital Signs Vital Signs Date Time Temp Pulse Resp B/P (MAP) Pulse Ox O2 Delivery O2 Flow Rate FiO2 06/02/19 06:40 96.7 70 14 90/52 (65) 05/30/19 03:37 96 05/30/19 03:15 Room Air Current Medications Current Medications Acetaminophen (Tylenol Tab) 650 mg Q6HP PRN PO HEADACHE or DISCOMFORT; Start 05/30/19 at 02:30 Al Hydrox/Mg Hydrox/Simethicone (Mylanta) 30 ml Q4HP PRN PO HEARTBURN/INDIGESTION; Start 05/30/19 at 02:30 Clonazepam (KlonoPIN) 0.5 mg BID@0900,1600 PO Last administered on 06/02/19at 08:29; Start 05/30/19 at 16:00 Clonidine HCl (Catapres) 0.1 mg QHS PO Last administered on 06/01/19at 21:17; Start 05/30/19 at 21:00 Clozapine (Clozaril) 200 mg BID PO Last administered on 06/02/19at 08:29; Start 05/30/19 at 21:00 Divalproex Sodium (Depakote) 250 mg QHS PO Last administered on 06/01/19at 21:18; Start 05/30/19 at 21:00 Divalproex Sodium (Depakote) 500 mg BID PO Last administered on 06/02/19at 08:29; Start 05/30/19 at 21:00 Divalproex Sodium (Depakote) 500 mg BID@0900,1600 PO ; Start 05/30/19 at 16:00; Status Cancel Docusate Sodium (Colace) 100 mg DAILY PO Last administered on 06/02/19 08:29; Start 05/30/19 at 09:00 Duloxetine HCl (Cymbalta) 60 mg BID PO Last administered on 05/31/19 09:53; Start 05/30/19 at 21:00; Stop 05/31/19 at 10:26; Status DC Duloxetine HCl (Cymbalta) 60 mg DAILY PO Last administered on 06/02/19 08:29; Start 06/01/19 at 09:00 Home Med (Med Rec Complete!) ASDIRECTED XX ; Start 05/30/19 at 03:15; Stop 05/30/19 at 03:15; Status DC Levothyroxine Sodium (Synthroid) 75 mcg DAILY@0600 PO Last administered on 06/02/19 05:59; Start 05/31/19 at 06:00 Lorazepam (Ativan) 2 mg STAT STAT PO Last administered on 05/29/19 23:39; Start 05/29/19 at 23:27; Stop 05/29/19 at 23:29; Status DC Magnesium Hydroxide (Milk Of Magnesia) 30 ml DAILYPRN PRN PO CONSTIPATION; Start 05/30/19 at 02:30 Multivitamins (Theragram-M) 1 tab DAILY PO Last administered on 06/02/19 08:29; Start 05/30/19 at 09:00 Nicotine (Nicorette) 2 mg Q4HP PRN PO NICOTINE WITHDRAWAL Last administered on 06/02/19 08:31; Start 05/31/19 at 17:00 Nortriptyline HCl (Pamelor) 25 mg QHS PO Last administered on 06/01/19 21:18; Start 05/31/19 at 21:00 Olanzapine (ZyPREXA) 15 mg QHS PO Last administered on 06/01/19 21:18; Start 05/30/19 at 21:00 Pantoprazole Sodium (Protonix) 40 mg DAILY PO Last administered on 06/02/19 08:29; Start 05/30/19 at 09:00 Tamsulosin HCl (Flomax) 0.4 mg DAILY PO Last administered on 06/02/19 08:29; Start 05/30/19 at 09:00 Tiotropium [place] (Spiriva Handihaler) 1 inhalation DAILY@0800 INH Last administered on 06/02/19at 08:29; Start 05/31/19 at 08:00 Trazodone HCl (Desyrel) 50 mg QHSP PRN PO INSOMNIA Last administered on 06/01/19at 21:18; Start 05/30/19 at 02:30 Trihexyphenidyl HCl (Artane) 5 mg QHS PO Last administered on 06/01/19at 21:16; Start 05/30/19 at 21:00 Allergies Coded Allergies: haloperidol (Verified Adverse Reaction, Severe, EPS, Difficulty Breathing, 05/29/19) loxapine (Verified Adverse Reaction, Severe, Tounge protrsion, diff breathing, 05/29/19) lithium (Verified Adverse Reaction, Intermediate, speech problems, 05/29/19) JULIO SPENCE DO Jun 02, 2019 9:50 am
[2019-06-02 18:00] VITALS: BP 110/75
[2019-06-02] MEDS: DIVALPROEX 250 MG TAB PO SCH (21:17)
[2019-06-02] MEDS: cloNIDine 0.1 MG TAB PO SCH (21:17)
[2019-06-02] MEDS: NORTRIPTYLINE 25 MG CAP PO SCH (21:18)
[2019-06-02] MEDS: OLANZapine 5 MG TAB PO SCH (21:18)
[2019-06-02] MEDS: traZODone 50 MG TAB PO PRN (21:18)
[2019-06-02] MEDS: TRIHEXYPHENIDYL 2 MG TAB PO SCH (21:18)
[2019-06-03] MEDS: LEVOTHYROXINE 75MCG TABLET (0.075MG) PO SCH (06:22)
[2019-06-03 06:33] VITALS: BP 118/75
[2019-06-03] MEDS: TIOTROPIUM INHALER/CAPSULE (SPIRIVA) INH SCH (08:51)
[2019-06-03] MEDS: clonazePAM 0.5 MG TAB PO SCH ×2 (08:51→15:30)
[2019-06-03] MEDS: cloZAPine 100 MG TAB (S0136) PO SCH ×2 (08:52→21:36)
[2019-06-03] MEDS: DIVALPROEX 500 MG TAB PO SCH ×2 (08:52→21:35)
[2019-06-03] MEDS: MULTIVITAMINS/MINERALS THERAP 1 TAB PO SCH (08:52)
[2019-06-03] MEDS: DOCUSATE SODIUM 100 MG CAP PO SCH (08:52)
[2019-06-03] MEDS: NICOTINE POLACRILEX 2 MG GUM PO PRN ×4 (08:52→21:36)
[2019-06-03] MEDS: PANTOPRAZOLE 40MG TAB (PROTONIX) PO SCH (08:52)
[2019-06-03] MEDS: TAMSULOSIN 0.4 MG CAP PO SCH (08:52)
--- NOTE | 2019-06-03 12:27 | MHIPN ---
DATE OF SERVICE: 06/03/2019 CHIEF COMPLAINT: Says feels better. SUBJECTIVE: Seen for followup in the presence of staff. Says feels a bit better and that he had a decent night, a bit less depressed. MENTAL STATUS EXAMINATION: He is neat. He is cooperative. Displays some psychomotor retardation. He is coherent but does not engage much in speech. Has a restricted depressed affect. Denies suicidal thoughts or intents. No homicidal ideas or intents currently. Currently, no evidence of any psychosis. Judgment and insight possibly a bit improved. ASSESSMENT: 1. Schizoaffective disorder. 2. Generalized anxiety disorder. PLAN: Continue current care and observations. Encouraged participation in activities in the unit as tolerated. VITAL SIGNS: Blood pressure 118/75, pulse 69, temperature 97.8.
[2019-06-03 18:09] VITALS: BP 101/73
[2019-06-03] MEDS: DIVALPROEX 250 MG TAB PO SCH (21:35)
[2019-06-03] MEDS: NORTRIPTYLINE 25 MG CAP PO SCH (21:35)
[2019-06-03] MEDS: traZODone 50 MG TAB PO PRN (21:35)
[2019-06-03] MEDS: OLANZapine 5 MG TAB PO SCH (21:35)
[2019-06-03] MEDS: TRIHEXYPHENIDYL 2 MG TAB PO SCH (21:36)
[2019-06-03] MEDS: PILL CUTTER 1 EACH XX PRN (21:36)
[2019-06-03] MEDS: cloNIDine 0.1 MG TAB PO SCH (21:36)
[2019-06-04] MEDS: LEVOTHYROXINE 75MCG TABLET (0.075MG) PO SCH (06:03)
[2019-06-04 06:52] VITALS: BP 92/72
[2019-06-04] MEDS: clonazePAM 0.5 MG TAB PO SCH ×2 (08:37→15:27)
[2019-06-04] MEDS: TAMSULOSIN 0.4 MG CAP PO SCH (08:37)
[2019-06-04] MEDS: cloZAPine 100 MG TAB (S0136) PO SCH ×2 (08:37→20:48)
[2019-06-04] MEDS: TIOTROPIUM INHALER/CAPSULE (SPIRIVA) INH SCH (08:38)
[2019-06-04] MEDS: PANTOPRAZOLE 40MG TAB (PROTONIX) PO SCH (08:38)
[2019-06-04] MEDS: DOCUSATE SODIUM 100 MG CAP PO SCH (08:38)
[2019-06-04] MEDS: MULTIVITAMINS/MINERALS THERAP 1 TAB PO SCH (08:38)
[2019-06-04] MEDS: NICOTINE POLACRILEX 2 MG GUM PO PRN ×3 (08:38→20:45)
[2019-06-04] MEDS: DIVALPROEX 500 MG TAB PO SCH ×2 (08:38→20:48)
[2019-06-04 18:15] VITALS: BP 108/76
[2019-06-04] MEDS: TRIHEXYPHENIDYL 2 MG TAB PO SCH (20:45)
[2019-06-04] MEDS: PILL CUTTER 1 EACH XX PRN (20:46)
[2019-06-04] MEDS: traZODone 50 MG TAB PO PRN (20:48)
[2019-06-04] MEDS: NORTRIPTYLINE 25 MG CAP PO SCH (20:48)
[2019-06-04] MEDS: DIVALPROEX 250 MG TAB PO SCH (20:48)
[2019-06-04] MEDS: OLANZapine 5 MG TAB PO SCH (20:49)
[2019-06-04] MEDS: cloNIDine 0.1 MG TAB PO SCH (20:49)
[2019-06-05] MEDS: LEVOTHYROXINE 75MCG TABLET (0.075MG) PO SCH (06:30)
[2019-06-05 07:02] VITALS: BP 95/67
[2019-06-05] MEDS: cloZAPine 100 MG TAB (S0136) PO SCH ×2 (09:19→20:53)
[2019-06-05] MEDS: TIOTROPIUM INHALER/CAPSULE (SPIRIVA) INH SCH (09:19)
[2019-06-05] MEDS: TAMSULOSIN 0.4 MG CAP PO SCH (09:20)
[2019-06-05] MEDS: NICOTINE POLACRILEX 2 MG GUM PO PRN ×3 (09:20→20:55)
[2019-06-05] MEDS: DOCUSATE SODIUM 100 MG CAP PO SCH (09:20)
[2019-06-05] MEDS: MULTIVITAMINS/MINERALS THERAP 1 TAB PO SCH (09:20)
[2019-06-05] MEDS: DIVALPROEX 500 MG TAB PO SCH ×2 (09:20→20:53)
[2019-06-05] MEDS: PANTOPRAZOLE 40MG TAB (PROTONIX) PO SCH (09:20)
[2019-06-05] MEDS: clonazePAM 0.5 MG TAB PO SCH ×2 (09:21→15:44)
--- NOTE | 2019-06-05 10:55 | MHIPNPDOC ---
[facility] Progress Note Progress Note DATE OF SERVICE: 06/05/19 HISTORY: Patient is a 58 -year-old , male, with a history of schizoaffective d/o, multiple inpatient admits to psych, multiple SA by OD/cutting/hanging who was brought to ED by TLS after pt cut his lt forearm 5 times with a razor intensionally (required 23 stitches) due to feeling suicidal per ED. Per ED, pt endorsed depression, anxiety, helplessness, hopelessness, and appeared flat, rocking back and forth in the ED. He denied hallucinations and delusions in the ED. TLS reported to the ED that the patient had been compliant on all his medication. Pt did not state in the ED if his act of cutting was a SA. VITAL SIGNS: See below. NEW TEST RESULTS: ANC 3,942.8 wnl, TSH 7.33, Depakote level 71.0 (therapeutic), thyroid panel wnl, TSH 3.000 CURRENT MEDICATIONS: See below. MENTAL STATUS EXAMINATION: General Appearance: well groomed, appears stated age, hospital scrubs/clothing Build: average Demeanor: cooperative Eye Contact: fair Activity: average Behavior: cooperative Speech: clear, reg/rate,rhythm,volume Mood: euthymic, full Mood "good" Affect: improved range, congruent Thought Process: logical/linear, concrete Thought Content (Delusions): none reported, denies SI/HI, denies AVH Thought Content (Other): none reported Thought Content (Aggressive): none reported Perception (Hallucinations): none reported Perception (Other): none reported Cognition (Impairment of): none reported Cognition(Intelligence Est.): borderline Oriented: Awake, Alert, Oriented times three Insight: limited Judgment: limited DIAGNOSES: Schizoaffective disorder, bipolar type generalized anxiety disorder history of polysubstance dependence in term remission ASSESSMENT:Pt seen and states that his mood is good today and he denies thoughts of suicide since he was started on nortriptyline. States he's tolerating the increase well and finding it beneficial. He does appear to have improved range and is euthymic He is active on the unit and the milieu, socializing and playing games with peer pt's. Denies SI and thoughts to harm self. States he slept well last night. Feels he is tolerating his medications. He is attending groups and finding them helpful. He denies SI/HI, hallucinations, delusions. Pt feels safe here MANAGEMENT PLAN: clozaril level pending Medication: Clonazepam 0.5 mg BID@0900,1600 Clonidine 0.1 mg QHS Clozapine 200 mg BID Depakote 500mg qam and 750 mg QHS ZyPREXA 15 mg QHS Trazodone 50 mg QHSP PRN PO INSOMNIA Trihexyphenidyl 5 mg QHS nortriptyline 50mg qhs for depression/pain TIME SPENT: 30 minutes. Vital Signs Vital Signs Date Time Temp Pulse Resp B/P (MAP) Pulse Ox O2 Delivery O2 Flow Rate FiO2 06/05/19 07:02 96.6 77 14 95/67 (76) 06/04/19 07:59 Room Air 05/30/19 03:37 96 Current Medications Current Medications Acetaminophen (Tylenol Tab) 650 mg Q6HP PRN PO HEADACHE or DISCOMFORT; Start 05/30/19 at 02:30 Al Hydrox/Mg Hydrox/Simethicone (Mylanta) 30 ml Q4HP PRN PO HEARTBURN/IN DIGESTION; Start 05/30/19 at 02:30 Clonazepam (KlonoPIN) 0.5 mg BID@0900,1600 PO Last administered on 06/05/19at 09:21; Start 05/30/19 at 16:00 Clonidine HCl (Catapres) 0.1 mg QHS PO Last administered on 06/04/19at 20:49; Start 05/30/19 at 21:00 Clozapine (Clozaril) 200 mg BID PO Last administered on 06/05/19at 09:19; Start 05/30/19 at 21:00 Divalproex Sodium (Depakote) 250 mg QHS PO Last administered on 06/04/19at 20:48; Start 05/30/19 at 21:00 Divalproex Sodium (Depakote) 500 mg BID PO Last administered on 06/05/19at 09:20; Start 05/30/19 at 21:00 Divalproex Sodium (Depakote) 500 mg BID@0900,1600 PO ; Start 05/30/19 at 16:00; Status Cancel Docusate Sodium (Colace) 100 mg DAILY PO Last administered on 06/05/19at 09:20; Start 05/30/19 at 09:00 Duloxetine HCl (Cymbalta) 60 mg BID PO Last administered on 05/31/19 09:53; Start 05/30/19 at 21:00; Stop 05/31/19 at 10:26; Status DC Duloxetine HCl (Cymbalta) 60 mg DAILY PO Last administered on 06/02/19 08:29; Start 06/01/19 at 09:00; Stop 06/02/19 at 09:53; Status DC Home Med (Med Rec Complete!) ASDIRECTED XX ; Start 05/30/19 at 03:15; Stop 05/30/19 at 03:15; Status DC Levothyroxine Sodium (Synthroid) 75 mcg DAILY@0600 PO Last administered on 06/05/19 06:30; Start 05/31/19 at 06:00 Lorazepam (Ativan) 2 mg STAT STAT PO Last administered on 05/29/19 23:39; Start 05/29/19 at 23:27; Stop 05/29/19 at 23:29; Status DC Magnesium Hydroxide (Milk Of Magnesia) 30 ml DAILYPRN PRN PO CONSTIPATION; Start 05/30/19 at 02:30 Multivitamins (Theragram-M) 1 tab DAILY PO Last administered on 06/05/19 09:20; Start 05/30/19 at 09:00 Nicotine (Nicorette) 2 mg Q4HP PRN PO NICOTINE WITHDRAWAL Last administered on 06/05/19 09:20; Start 05/31/19 at 17:00 Nortriptyline HCl (Pamelor) 25 mg QHS PO Last administered on 06/02/19at 21:18; Start 05/31/19 at 21:00; Stop 06/02/19 at 23:59; Status DC Nortriptyline HCl (Pamelor) 50 mg QHS PO Last administered on 06/04/19at 20:48; Start 06/03/19 at 21:00 Olanzapine (ZyPREXA) 15 mg QHS PO Last administered on 06/04/19at 20:49; Start 05/30/19 at 21:00 Pantoprazole Sodium (Protonix) 40 mg DAILY PO Last administered on 06/05/19at 09:20; Start 05/30/19 at 09:00 Tamsulosin HCl (Flomax) 0.4 mg DAILY PO Last administered on 06/05/19at 09:20; Start 05/30/19 at 09:00 Tiotropium [place] (Spiriva Handihaler) 1 inhalation DAILY@0800 INH Last administered on 06/05/19 09:19; Start 05/31/19 at 08:00 Trazodone HCl (Desyrel) 50 mg QHSP PRN PO INSOMNIA Last administered on 06/04/19at 20:48; Start 05/30/19 at 02:30 Trihexyphenidyl HCl (Artane) 5 mg QHS PO Last administered on 06/04/19at 20:45; Start 05/30/19 at 21:00 Allergies Coded Allergies: haloperidol (Verified Adverse Reaction, Severe, EPS, Difficulty Breathing, 05/29/19) loxapine (Verified Adverse Reaction, Severe, Tounge protrsion, diff breathing, 05/29/19) lithium (Verified Adverse Reaction, Intermediate, speech problems, 05/15 04/02) JULIO SPENCE DO Jun 05, 2019 10:55 am
[2019-06-05 18:00] VITALS: BP 108/82
[2019-06-05 20:53] VITALS: BP 108/82
[2019-06-05] MEDS: NORTRIPTYLINE 25 MG CAP PO SCH (20:53)
[2019-06-05] MEDS: cloNIDine 0.1 MG TAB PO SCH (20:53)
[2019-06-05] MEDS: DIVALPROEX 250 MG TAB PO SCH (20:53)
[2019-06-05] MEDS: PILL CUTTER 1 EACH XX PRN (20:54)
[2019-06-05] MEDS: TRIHEXYPHENIDYL 2 MG TAB PO SCH (20:54)
[2019-06-05] MEDS: OLANZapine 5 MG TAB PO SCH (20:54)
[2019-06-05] MEDS: traZODone 50 MG TAB PO PRN (20:55)
[2019-06-06] MEDS: LEVOTHYROXINE 75MCG TABLET (0.075MG) PO SCH (06:24)
[2019-06-06 06:41] VITALS: BP 92/60
[2019-06-06] MEDS: cloZAPine 100 MG TAB (S0136) PO SCH (08:21)
[2019-06-06] MEDS: DOCUSATE SODIUM 100 MG CAP PO SCH (08:21)
[2019-06-06] MEDS: TIOTROPIUM INHALER/CAPSULE (SPIRIVA) INH SCH (08:21)
[2019-06-06] MEDS: PANTOPRAZOLE 40MG TAB (PROTONIX) PO SCH (08:21)
[2019-06-06] MEDS: DIVALPROEX 500 MG TAB PO SCH (08:22)
[2019-06-06] MEDS: clonazePAM 0.5 MG TAB PO SCH (08:22)
[2019-06-06] MEDS: TAMSULOSIN 0.4 MG CAP PO SCH (08:22)
[2019-06-06] MEDS: MULTIVITAMINS/MINERALS THERAP 1 TAB PO SCH (08:22)
[2019-06-06] MEDS: NICOTINE POLACRILEX 2 MG GUM PO PRN (08:24)
[2019-06-06] MEDS ORDERED: DIVA250T67 PO (09:21)
[2019-06-06] MEDS ORDERED: CLOZ200T PO (09:21)
[2019-06-06] MEDS ORDERED: CLON0.5T2 PO (09:21)
[2019-06-06] MEDS ORDERED: OLAN15TA PO (09:21)
[2019-06-06] MEDS ORDERED: DIVA500T94 PO (09:21)
[2019-06-06] MEDS ORDERED: NORT25CA2 PO (09:21)
[2019-06-06] MEDS ORDERED: CLON-412 PO (09:21)
[2019-06-06] MEDS ORDERED: TRIH5TAB PO (09:21)
--- NOTE | 2019-06-06 09:22 | MHDSPDOC ---
[facility] Discharge Summary Discharge Summary DATE OF ADMISSION: May 30, 2019 at 2:27 am DATE OF DISCHARGE: June 06, 2019 DISCHARGE DIAGNOSES: Schizoaffective disorder, bipolar type generalized anxiety disorder history of polysubstance dependence in term remission REASON FOR ADMISSION: Patient is a 58 -year-old , male, with a history of schizoaffective d/o, multiple inpatient admits to [facility], multiple SA by OD/cutting/hanging who was brought to ED by TLS after pt cut his lt forearm 5 times with a razor intensionally (required 23 stitches) due to feeling suicidal per ED. Per ED, pt endorsed depression, anxiety, helplessness, hopelessness, and appeared flat, rocking back and forth in the ED. He denied hallucinations and delusions in the ED. TLS reported to the ED that the patient had been compliant on all his medication. Pt did not state in the ED if his act of cutting was a SA. CONSULTANTS INVOLVED: none TEST RESULTS: ANC 3,942.8 wnl, TSH 7.33, Depakote level 71.0 (therapeutic), thyroid panel wnl, TSH 3.000 TREATMENT AND PROGRESS ON THE UNIT : Pt was admitted to [facility], seen for psychiatric assessment and restarted on his outpatient medication except cymbalta that he was cross titrated off to nortriptyline for depression and pain that he tolerated well. Pt stated he found nortriptyline very beneficial for his mood in conjunction with the rest of his psychotropic medication. He was provided trazodone 50mg qhs prn insomnia. Pt found his medications beneficial and tolerated them well. He attended groups daily during his stay. His symptoms improved greatly with treatment. On day of discharge he denied depression, anxiety, insomnia, SI/HI, hallucinations, delusions. He was discharged home with TLS with follow-up at [facility]. He felt safe for discharge. DISCHARGE ASSESSMENT: Pt seen and states that his mood is good today and he denies thoughts of suicide since he was started on nortriptyline. States his looking forward to going home to [facility] today. States he's tolerating the increase well and finding it beneficial. He does appear to have improved range and is euthymic He is active on the unit and the milieu, socializing and playing games with peer pt's. Denies SI and thoughts to harm self. States he slept well last night. Feels he is tolerating his medications and states they are all beneficial. He is attending groups and finding them helpful. He denies depression, anxiety, insomnia, SI/HI, hallucinations, delusions. Pt feels safe to be discharged home to [facility]. MENTAL STATUS EXAMINATION ON DISCHARGE: General Appearance: well groomed, appears stated age, own clothing Build: average Demeanor: cooperative Eye Contact: good Activity: average Behavior: cooperative Speech: clear, reg/rate,rhythm,volume Mood: euthymic, full Mood "good" Affect: full range, congruent Thought Process: logical/linear, concrete Thought Content (Delusions): none reported, denies SI/HI, denies AVH Thought Content (Other): none reported Thought Content (Aggressive): none reported Perception (Hallucinations): none reported Perception (Other): none reported Cognition (Impairment of): none reported Cognition(Intelligence Est.): borderline Oriented: Awake, Alert, Oriented times three Insight: limited Judgment: limited MEDICATIONS ON DISCHARGE: Clonazepam 0.5 mg BID@0900,1600 Clonidine 0.1 mg QHS Clozapine 200 mg BID Depakote 500mg qam and 750 mg QHS zyprexa 15 mg QHS Trazodone 50 mg qhs prn insomnia Trihexyphenidyl 5 mg QHS nortriptyline 50mg qhs for depression/pain PLAN/FOLLOWUP ARRANGEMENTS: D/c home wthe [facility] with follow-up at [facility]. The amount of time spent in the coordination of care for this patient was approximately 30 minutes. Vital Signs/I&Os Vital Signs Date Time Temp Pulse Resp B/P (MAP) Pulse Ox O2 Delivery O2 Flow Rate FiO2 06/06/19 06:41 97.5 76 12 92/60 (71) 06/04/19 07:59 Room Air Medications Scheduled Aspirin (Aspirin EC) 81 Mg Tablet.dr, 81 MG PO DAILY, (Reported) Clonazepam (Clonazepam) 0.5 Mg Tablet, 0.5 MG PO BID, (Reported) MORNING, 1600 Clonidine HCl (Clonidine HCl) 0.1 Mg Tablet, 0.1 MG PO QHS, (Reported) Clozapine (Clozapine) 200 Mg Tablet, 200 MG PO BID, (Reported) Divalproex Sodium (Divalproex Sodium) 500 Mg Tablet.dr, 500 MG PO BID, (Reported) Divalproex Sodium (Divalproex Sodium) 250 Mg Tablet.dr, 250 MG PO QHS, (Reported) TAKES WITH 500MG FOR 750MG TOTAL AT QHS Docusate Sodium (Docusate Sodium) 100 Mg Capsule, 100 MG PO DAILY, (Reported) Docusate Sodium (Docusate Sodium) 100 Mg Capsule, 200 MG PO QHS, (Reported) Duloxetine Hcl (Duloxetine HCl) 60 Mg Capsule.dr, 60 MG PO BID, (Reported) Levothyroxine Sodium (Synthroid) 75 Mcg Tablet, 75 MCG PO DAILY, (Reported) Multivitamins (Thera M Plus Tablet) 1 Each Tablet, 1 TAB PO DAILY, (Reported) Olanzapine (Olanzapine) 15 Mg Tablet, 15 MG PO QHS, (Reported) Pantoprazole Sodium (Pantoprazole Sodium) 40 Mg Tablet.dr, 40 MG PO DAILY, (Reported) Polyethylene Glycol 3350 (Miralax) 17 Gm Powd.pack, 17 GM PO DAILY, (Reported) Tamsulosin HCl (Flomax) 0.4 Mg Capsule, 0.4 MG PO DAILY, (Reported) Tiotropium [place] (Spiriva) 18 Mcg Cap.w.dev, 1 INHALATION INH DAILY, (Reported) Trihexyphenidyl HCl (Trihexyphenidyl HCl) 5 Mg Tablet, 5 MG PO QHS, (Reported) Scheduled PRN Nicotine Polacrilex (Nicotine Lozenge) 2 Mg Lozenge, 2 MG MT Q3HP PRN for SMOKING CESSATION, (Reported) Allergies Coded Allergies: haloperidol (Verified Adverse Reaction, Severe, EPS, Difficulty Breathing, 05/29/19) loxapine (Verified Adverse Reaction, Severe, Tounge protrsion, diff breathing, 05/29/19) lithium (Verified Adverse Reaction, Intermediate, speech problems, ) JULIO SPENCE DO Jun 06, 2019 9:22 am
--- NOTE | 2019-06-06 13:35 | IPNPDOC ---
Subjective Date Seen The patient was seen on 06/06/19. Subjective Chief Complaint/HPI Austin was seen and examined this morning to evaluate his laceration healing and for likely suture removal from posterior left forearm. Patient states that the sutures were put in on 05/30. Patient states there has been no discharge from his wounds. He denies any recent fever, chills, or night sweats. Patient was to be discharged today from inpatient mental health unit. General: Reports: Normal Appetite; Denies: Chills Constitutional: Denies: Fever, Night Sweats Skin: Denies: Other (no drainage from area of sutures) Neurological: Denies: Weakness (of affected area where sutures to be removed), Numbness (of affected area where sutures to be removed) Objective Physical Examination General Exam: Positive: Alert, Cooperative Skin Exam: Positive: Nl turgor and temperature, Other skin issue (. Adequate wound healing and scabbed formation. No erythema, no swelling, no crepitus, no discharge, no warmth of the affected area where 23 sutures were on patient's left posterior forearm); Negative: Rash, Breakdown, Lesion, Pruritus Psych Exam: Positive: Mood NL (euthymic), Other (, insight and judgment both limited) Assessment /Plan Assessment Suture removal -Using a suture removal kit, all 23 stitches were removed from the patient's five lacerations on his posterior left forearm.. There are no signs of erythema, edema, crepitus, warmth, discharge of the affected area surrounding the 5 lacerations. Good wound healing and scab formation is occurring. There were no visible signs of infection. Patient was to be discharged from inpatient mental health unit today. -Patient will follow-up with primary care physician in 7-10 days Thank you for the hospitalist team consult to care for this patient. Suture removal. Plan/VTE VTE Prophylaxis Ordered?: No VS, I&O, 24H, Fishbone Vital Signs/I&O Vital Signs Date Time Temp Pulse Resp B/P (MAP) Pulse Ox O2 Delivery O2 Flow Rate FiO2 06/06/19 06:41 97.5 76 12 92/60 (71) 06/04/19 07:59 Room Air Attending Note Attending Note I saw and examined the patient. I agree with the finding and the plan of care as documented in the resident's note. RUBA DELGADO PGY-1 Jun 06, 2019 13:35 LEIGH ANN PLUNKETT MD Jun 10, 2019 08:31
[2019-06-10] MEDS ORDERED: CLON0.5T2 PO (21:24)
== END 2019-06-06 13:00 | disposition home or self-care (01) | DRG 885 ==
LOC: M ED 21:22 → M ED INP 05-30 02:27 → M PSY 05-30 03:26
PROVIDERS: ADMIT Psychiatry & Neurology Psychiatry; ATTEND Psychiatry & Neurology Psychiatry
DX: F25.0 Schizoaffective disorder, bipolar type (principal); R45.851 Suicidal ideations; F41.1 Generalized anxiety disorder; Z79.82 Long term (current) use of aspirin; Z79.899 Other long term (current) drug therapy; Z88.8 Allergy status to other drugs, medicaments and biological substances; E03.9 Hypothyroidism, unspecified; E78.5 Hyperlipidemia, unspecified; I10 Essential (primary) hypertension; N40.0 Benign prostatic hyperplasia without lower urinary tract symptoms

== ENCOUNTER 2019-06-10 19:04 | Inpatient (IN) | payer MEDICARE, MEDICAID ==
[~2019-06-10] VITALS: Ht 177.8 cm; Wt 80.8 kg
[~2019-06-10 19:04] MED LIST changes: +ASPI-161 PO; +CLON0.5T8 PO; +DIVA250T67 PO; +DIVA500T94 PO; +DOCU100C16 PO; +DOCU100C17 PO; +DULO1CAP6 PO; +FLOM0.4C39 PO; +MIRA1POW3 PO; +NORT25CA2 PO; +OLAN15TA PO; +PANT40TA3 PO; +SPIR1CAP INH; +SYNT75TA PO; +TRIH5TAB PO; +VITMTA PO; +[UNRECOGNIZED DRUG - OTHER] MT
[2019-06-10 19:59] LABS: HEMATOCRIT 40.3 % (42.0-52.0); HEMOGLOBIN 13.6 g/dl (13.5-17.5); MEAN CORPUSCULAR HEMOGLOBIN 32.2 pg (27.0-33.0); MEAN CORPUSCULAR HGB CONC 33.7 g/dl (32.0-36.5); MEAN CORPUSCULAR VOLUME 95.3 fl (80.0-96.0); PLATELET COUNT, AUTOMATED 174 10^3/uL (150-450); RED BLOOD COUNT 4.23 10^6/uL (4.30-6.10); WHITE BLOOD COUNT 8.2 10^3/uL (4.0-10.0)
[2019-06-10 20:26] LABS: AMPHETAMINES LEVEL URINE NEGATIVE (NEGATIVE); BARBITURATES URINE NEGATIVE (NEGATIVE); BENZODIAZEPINES URINE NEGATIVE (NEGATIVE); CANNABINOIDS URINE NEGATIVE (NEGATIVE); COCAINE METABOLITE URINE NEGATIVE (NEGATIVE); METHADONE URINE NEGATIVE (NEGATIVE); OPIATES URINE NEGATIVE (NEGATIVE); PHENCYCLIDINE URINE NEGATIVE (NEGATIVE)
[2019-06-10 20:40] LABS: ACETAMINOPHEN LEVEL < 2.0 UG/ML (10.0-30.0); ALBUMIN 3.2 GM/DL (3.2-5.2); ALT/SGPT 25 U/L (12-78); BILIRUBIN,DIRECT 0.1 MG/DL (0.0-0.2); BILIRUBIN,TOTAL 0.2 MG/DL (0.2-1.0); BLOOD UREA NITROGEN 14 MG/DL (7-18); CALCIUM LEVEL 8.8 MG/DL (8.5-10.1); CARBON DIOXIDE LEVEL 28 MEQ/L (21-32); CHLORIDE LEVEL 109 MEQ/L (98-107); CREATININE FOR GFR 1.08 MG/DL (0.70-1.30); ETHYL ALCOHOL (ETHANOL) < 0.003 % (0.000-0.010); GLOMERULAR FILTRATION RATE > 60.0 (>56); GLUCOSE, FASTING 91 MG/DL (70-100); POTASSIUM SERUM 4.5 MEQ/L (3.5-5.1); SALICYLATE LEVEL < 1.7 MG/DL (5.0-30.0); SODIUM LEVEL 141 MEQ/L (136-145); TOTAL PROTEIN 6.6 GM/DL (6.4-8.2)
[2019-06-10] MEDS ORDERED: NORTRIPTYLINE 25 MG CAP PO SCH (21:00)
[2019-06-10] MEDS ORDERED: CLOZ200T PO (21:24)
[2019-06-10] MEDS ORDERED: DEPA1TAB3 PO (21:24)
[2019-06-10] MEDS ORDERED: CLON0.5T8 PO (21:24)
[2019-06-10] MEDS ORDERED: CLONI1TA PO (21:24)
[2019-06-10] MEDS ORDERED: DEPA250T32 PO (21:24)
[2019-06-10] MEDS ORDERED: OLAN15TA PO (21:31)
[2019-06-10] MEDS ORDERED: TRIH5TAB PO (21:31)
[2019-06-10] MEDS ORDERED: NORT25CA2 PO (21:31)
[2019-06-10] MEDS ORDERED: ACETAMINOPHEN TAB 650MG DOSE (2X325MG) PO PRN (22:00)
[2019-06-10] MEDS ORDERED: MOM 30ML SUSPENSION UDC PO PRN (22:00)
[2019-06-10] MEDS ORDERED: MAALOX 30 ML SUSP *UDC PO PRN (22:00)
[2019-06-10 23:47] VITALS: BP 108/76
[2019-06-10] MEDS: TRIHEXYPHENIDYL 2 MG TAB PO SCH (23:58)
[2019-06-10] MEDS: cloNIDine 0.1 MG TAB PO SCH (23:59)
[2019-06-11] MEDS: clonazePAM 0.5 MG TAB PO SCH ×3 (00:01→20:39)
[2019-06-11] MEDS: DIVALPROEX 250 MG TAB PO SCH ×2 (00:01→20:41)
[2019-06-11] MEDS: traZODone 50 MG TAB PO PRN ×2 (00:01→20:39)
[2019-06-11] MEDS: OLANZapine 5 MG TAB PO SCH ×2 (00:01→20:41)
[2019-06-11] MEDS: LEVOTHYROXINE 75MCG TABLET (0.075MG) PO SCH (05:43)
[2019-06-11 07:02] VITALS: BP 101/61
[2019-06-11 07:22] LABS: BASO # 0.1 10^3/uL (0.0-0.2); BASO % 0.6 % (0.0-1.0); EOS # 0.2 10^3/uL (0.0-0.50); EOS % 1.5 % (0.0-3.0); HEMOGLOBIN 13.3 g/dl (13.5-17.5); LYMPH # 3.7 10^3/uL (1.5-4.5); LYMPH % 37.7 % (24.0-44.0); MEAN CORPUSCULAR HEMOGLOBIN 30.9 pg (27.0-33.0); MEAN CORPUSCULAR HGB CONC 33.3 g/dl (32.0-36.5); MONO # 1.2 10^3/uL (0.0-0.8); MONO % 11.8 % (0.0-5.0); NEUTROPHILS # 4.7 10^3/uL (1.8-7.7); NEUTROPHILS % 47.9 % (36.0-66.0); PLATELET COUNT, AUTOMATED 167 10^3/uL (150-450); WHITE BLOOD COUNT 9.8 10^3/uL (4.0-10.0)
[2019-06-11] MEDS: MIRALAX *UNIT DOSE* 17GM PACKET PO SCH (09:00)
[2019-06-11] MEDS: PANTOPRAZOLE 40MG TAB (PROTONIX) PO SCH (09:07)
[2019-06-11] MEDS: DIVALPROEX 500 MG TAB PO SCH ×2 (09:07→15:36)
[2019-06-11] MEDS: DOCUSATE SODIUM 100 MG CAP PO SCH ×3 (09:07→20:41)
[2019-06-11] MEDS: TAMSULOSIN 0.4 MG CAP PO SCH (09:07)
[2019-06-11] MEDS: MULTIVITAMINS/MINERALS THERAP 1 TAB PO SCH (09:07)
[2019-06-11] MEDS: ASPIRIN 81 MG CHEW TABLET PO SCH (09:07)
[2019-06-11] MEDS: cloZAPine 100 MG TAB (S0136) PO SCH ×3 (09:08→20:39)
[2019-06-11] MEDS: TIOTROPIUM INHALER/CAPSULE (SPIRIVA) INH SCH (11:46)
[2019-06-11] MEDS: NICOTINE POLACRILEX 2 MG GUM PO PRN ×4 (12:28→19:40)
[2019-06-11 18:00] VITALS: BP 111/71
[2019-06-11] MEDS: NORTRIPTYLINE 25 MG CAP PO SCH (20:39)
[2019-06-11] MEDS: cloNIDine 0.1 MG TAB PO SCH (20:39)
[2019-06-11] MEDS: TRIHEXYPHENIDYL 2 MG TAB PO SCH (20:40)
[2019-06-12] MEDS: LEVOTHYROXINE 75MCG TABLET (0.075MG) PO SCH (06:15)
[2019-06-12 06:41] VITALS: BP 115/77
--- NOTE | 2019-06-12 07:54 | HPE ---
DATE OF ADMISSION: 06/10/2019 DATE OF ADMISSION: HISTORY OF PRESENT ILLNESS: Please refer to the psychiatric history and evaluation for further details on this admission. This examination and history is intended for medical issues which may need treatment, followup or consultation on this 59-year-old male who was recently discharged from [facility] mental health unit 06/06/2019. PRIMARY CARE PROVIDER: He thinks he goes to a clinic on [facility]. He is not sure. ALLERGIES: HALOPERIDOL, DULOXETINE, LITHIUM. SOCIAL HISTORY: He states he lives at [facility] ([facility]) on [address]. He has a history of alcohol abuse. He has not drank, he states, in over 18 years. Smokes one pack of cigarettes per day. Recreational drug use - none in over 18 years. FAMILY HISTORY: Mother is alive and well. Father committed suicide. HOME MEDICATIONS: - aspirin 81 mg by mouth daily - Colace 200 mg by mouth nightly - MiraLAX 17 grams by mouth daily as needed constipation. - clonazepam 0.5 mg by mouth twice a day - clonidine 0.1 mg by mouth nightly - clozapine 200 mg by mouth twice a day - Depakote 250 mg by mouth nightly, 500 mg by mouth twice a day - Colace 100 mg by mouth daily - Levothyroxine 75 mcg by mouth daily - Multivite one by mouth daily - nortriptyline 25 mg by mouth nightly - Olanzapine 15 mg by mouth nightly - Protonix 40 mg by mouth daily - Flomax 0.4 mg by mouth daily - Spiriva on inhalation daily - trihexyphenidyl HCL 5 mg by mouth nightly REVIEW OF SYSTEMS: No complaint of headache. No blurred or double vision. No fever. No chills. No tinnitus. No hoarseness. No difficulty swallowing. No lightheadedness. No vertigo. Cardiovascular: No complaints of chest pain, shortness of breath, palpitations or edema. Respiratory: No chronic cough. No sputum production. No hemoptysis. No orthopnea. No wheeze. Gastrointestinal (GI): No nausea, vomiting or diarrhea. No hematochezia. No melena. No change in appetite or bowel habits. No complaints of abdominal pain. Genitourinary (): No hematuria, dysuria, urgency, frequency. Has benign prostatic hypertrophy (BPH). Musculoskeletal: No joint redness or swelling. Endocrine: No polyuria, polydipsia, or polyphagia. Does have a history of hypothyroidism on levothyroxine. Hematological: No history of anemia. Neurological: No history of seizures. Psychological: See psychiatric history of present illness (HPI). LABORATORY STUDIES: White count 8.2, hemoglobin 15.6, hematocrit 40.3, platelets 174. Sodium 141, potassium 4.5, chloride 109, CO2 28, BUN 14, creatinine 1.08, glucose 91, TSH 4.68. Repeat a thyroid panel in the a.m. Urine for toxicology negative. PHYSICAL EXAMINATION: 59-year-old cooperative male in no acute distress. Vital signs stable. Height 70 inches, weight 81.82 kg, body mass index (BMI) 25.9, blood pressure 108.76, pulse 80, respirations 20, temperature 96.7, oxygen saturation 96% on room air. The patient is alert and oriented times three. Pupils equal and reactive to light. Pharynx, tongue, and gums pink and moist. Tongue is midline. Poor dentition. Neck is supple, without lymphadenopathy. No thyromegaly. No goiter Chest clear to auscultation, without wheeze or retraction. Heart is regular. Abdomen benign. Bowel sounds positive. /Rectal: Not done. Extremities: No cyanosis, clubbing or edema. Peripheral pulses equal and palpable bilaterally. Skin is warm and dry. Healing laceration, well approximated from prior admission. No redness or drainage on left forearm. Numerous well-healed laceration inside both forearms. IMPRESSION AND PLAN: 1. Psychiatric: Plan per psychiatry. 2. Hypothyroidism. TSH slightly elevated. Recheck a thyroid panel in the a.m. If remains elevated, may need to increase the levothyroxine dose. 3. Benign prostatic hypertrophy (BPH). Continue Flomax. 4. Smoking: Nicotine gum ordered.
--- NOTE | 2019-06-12 07:54 | MHHPE ---
DATE OF ADMISSION: 06/10/2019 DATE OF SERVICE: 06/11/2019 HISTORY OF PRESENT ILLNESS: This is one of multiple hospitalizations for this 59-year-old man with a history of schizoaffective disorder and a resident of [facility] ([facility]). THe patient informed the staff at [facility] that he wanted to cut himself and he wanted to kill himself. The patient had just been discharged from [facility] inpatient mental health unit about 2 weeks ago. He actually shows me what appeared to be significant cuts on his left forearm where he apparently cut and required 23 sutures prior to that hospitalization 2 weeks ago and that was a suicidal attempt. Of note, there are significant older cuts from prior serious attempts. The patient says today that he has been having suicidal thoughts. He is afraid that he will act on these thoughts. Today he tells me that he is not having those thoughts. He says that he is feeling very depressed. He mentions the of his mother. Upon hospitalization, the patient had specific plans of cutting his groin area and inner thigh so that he could just "bleed out." The patient has a diagnosis of schizoaffective disorder and he says that he always hears voices but they are not command type or as disturbing anymore with his current medications. PAST PSYCHIATRIC HISTORY: I reviewed the record from his last admission to [facility] inpatient mental health unit, which was from 05/29/2019 to 06/06/2019. According to those records, he did cut his forearm as a suicidal attempt and it was deep enough that he required 23 sutures. He complained of feeling depressed and anxious, hopeless and helpless. This patient has a record of multiple prior hospitalizations going back to over 30 years ago when the patient would go to [facility] and be admitted there for periods of years at a time. It seems that he may have had about over 100 psychiatric admissions. He has had a number of suicide attempts by hanging, overdose, cutting. He put a gun to his head but he has never pulled the trigger several times in the past. FAMILY HISTORY: The patient says that his brother had severe mental illness also and committed suicide via overdose in October 2012. He said his father committed suicide. MEDICAL PROBLEMS: The patient has hypothyroidism, hypertension, hypercholesterolemia, gastroesophageal reflux disease (GERD). SUBSTANCE ABUSE HISTORY: He does not have a problem with alcohol or drugs. ABUSE HISTORY: THe patient denies any history of abuse. REVIEW OF SYSTEMS: VITAL SIGNS: Blood pressure is 101/61, pulse is 79, respirations are 18. He does not appear to be in any apparent distress. NEUROMUSCULAR SYSTEM: The patient's gait is normal. There is no formal thought disorder noted. There are no involuntary movements in his extremities. MENTAL STATUS EXAMINATION: This patient is alert and oriented times three. He is casually dressed in hospital garments. He is pleasant, cooperative, verbally spontaneous. Eye contact is fairly good. Mood is depressed. Affect is constricted but appropriate. He has chronic auditory hallucinations. He admits to suicidal ideations, but he is willing to contract for safety at this point. He denies homicidal ideations. Concentration is fair. Memory is intact. Insight and judgment fair. DIAGNOSES: 1.Schizoaffective disorder, bipolar type 2.Generalized anxiety disorder TREATMENT PLAN: At this point, the patient is very depressed and has suicidal thoughts, although he is able to contract for safety at this point. We will increase the nortriptyline from 50 to 75 mg daily and we will continue his other medications, which are clozapine 200 mg twice a day, Depakote 550 mg at night, Zyprexa 15 mg at night, Klonopin 0.5 mg twice a day, clonidine 0.1 mg at night, and Artane 5 mg at night. We will titrate his medications as indicated. MTDD
[2019-06-12 07:55] LABS: FREE THYROXINE INDEX 3.5 % (1.4-3.8); THYROID STIMULATING HORMONE 3.36 uIU/ML (0.358-3.740); THYROXINE (T4) 10.6 UG/DL (4.5-12.0)
[2019-06-12] MEDS: PANTOPRAZOLE 40MG TAB (PROTONIX) PO SCH (07:57)
[2019-06-12] MEDS: cloZAPine 100 MG TAB (S0136) PO SCH ×2 (07:57→20:28)
[2019-06-12] MEDS: clonazePAM 0.5 MG TAB PO SCH ×2 (07:57→20:29)
[2019-06-12] MEDS: TAMSULOSIN 0.4 MG CAP PO SCH (07:58)
[2019-06-12] MEDS: ASPIRIN 81 MG CHEW TABLET PO SCH (07:58)
[2019-06-12] MEDS: TIOTROPIUM INHALER/CAPSULE (SPIRIVA) INH SCH (07:58)
[2019-06-12] MEDS: NICOTINE POLACRILEX 2 MG GUM PO PRN ×4 (07:58→20:33)
[2019-06-12] MEDS: MULTIVITAMINS/MINERALS THERAP 1 TAB PO SCH (07:58)
[2019-06-12] MEDS: DIVALPROEX 500 MG TAB PO SCH ×2 (07:58→16:36)
[2019-06-12] MEDS: DOCUSATE SODIUM 100 MG CAP PO SCH ×2 (07:58→20:29)
[2019-06-12] MEDS: MIRALAX *UNIT DOSE* 17GM PACKET PO SCH (08:52)
--- NOTE | 2019-06-12 10:42 | MHIPNPDOC ---
[facility] Progress Note Progress Note DATE OF SERVICE: 06/12/19 HISTORY: Per Dr. Lyle jones note: "This is one of multiple hospitalizations for this 59-year-old man with a history of schizoaffective disorder and a resident of [facility] ([facility]). THe patient informed the staff at [facility] that he wanted to cut himself and he wanted to kill himself. The patient had just been discharged from inpatient mental health unit about 2 weeks ago. He actually shows me what appeared to be significant cuts on his left forearm where he apparently cut and required 23 sutures prior to that hospitalization 2 weeks ago and that was a suicidal attempt. Of note, there are significant older cuts from prior serious attempts. The patient says today that he has been having suicidal thoughts. He is afraid that he will act on these thoughts. Today he tells me that he is not having those thoughts. He says that he is feeling very depressed. He mentions the of his mother. Upon hospitalization, the patient had specific plans of cutting his groin area and inner thigh so that he could just "bleed out." The patient has a diagnosis of schizoaffective disorder and he says that he always hears voices but they are not command type or as disturbing anymore with his current medications." VITAL SIGNS: See below. NEW TEST RESULTS: 05/31/19: ANC 3,942.8 wnl, TSH 7.33, Depakote level 71.0 (therapeutic), thyroid panel wnl, TSH 3.000 CURRENT MEDICATIONS: See below. MENTAL STATUS EXAMINATION: This patient is alert and oriented times three. He is casually dressed in hospital garments. He is pleasant, cooperative, spontaneous. Eye contact is fair. Mood is depressed. Affect is constricted but appropriate. He has denies auditory hallucinations. He denies suicidal ideations. He denies homicidal ideations. Concentration is fair. Memory is intact. Insight and judgment fair. DIAGNOSES: 1.Schizoaffective disorder, bipolar type 2.Generalized anxiety disorder ASSESSMENT:Pt seen and states that his mood continues to be depressed and states "I don't know what went wrong" as had been feeling good prior recent d/c [facility]. Appears depressed and flat. Denies SI though but appears to be spontaneous when he does have it. States he's tolerating his medications but is uncertain if increased in nortriptyline or depakote by Dr. Alvarenga yesterday beneficial yet. Advised will continue to monitor prior to increase. Well get depakote level as not done on admission. States he slept well last night. He is social in the milieu this am working on a puzzle and attending groups and finding them helpful. He denies SI/HI, hallucinations, delusions. Pt feels safe here. MANAGEMENT PLAN: continue plan nortriptyline 75 mg daily clozapine 200 mg twice a day Depakote 500mg qam and 750 mg at night Zyprexa 15 mg at night Klonopin 0.5 mg twice a day clonidine 0.1 mg at night Artane 5 mg at night. TIME SPENT: 30 minutes. Vital Signs Vital Signs Date Time Temp Pulse Resp B/P (MAP) Pulse Ox O2 Delivery O2 Flow Rate FiO2 06/12/19 06:41 97.3 74 12 115/77 (90) 06/10/19 23:47 96 06/10/19 22:43 Room Air Laboratory Data 24H Labs Laboratory Tests 2 06/12/19 06:55: Thyroid Stimulating Hormone (TSH) 3.360, Free Thyroxine Index 3.5, Thyroxine (T4) 10.6, Triiodothyronine (T3) Uptake 33 Current Medications Current Medications Medications (Trade) Dose Ordered Sig/Billy Route PRN Reason Start Time Stop Time Status Last Admin Dose Admin Acetaminophen (Tylenol Tab) 650 mg Q6HP PRN PO HEADACHE or DISCOMFORT 06/10/19 22:00 Al Hydrox/Mg Hydrox/Simethicone (Mylanta) 30 ml Q4HP PRN PO HEARTBURN/INDIGESTION 06/10/19 22:00 Aspirin (Aspirin Chewable) 81 mg DAILY PO 06/11/19 09:00 06/12/19 07:58 Clonazepam (KlonoPIN) 0.5 mg BID PO 06/10/19 21:00 06/12/19 07:57 Clonidine HCl (Catapres) 0.1 mg QHS PO 06/10/19 21:00 06/11/19 20:39 Clozapine (Clozaril) 200 mg BID PO 06/10/19 21:00 06/12/19 07:57 Divalproex Sodium (Depakote) 250 mg QHS PO 06/10/19 21:00 06/11/19 20:41 Divalproex Sodium (Depakote) 500 mg DAILY@0900,1600 PO 06/11/19 09:00 06/12/19 07:58 Docusate Sodium (Colace) 100 mg DAILY PO 06/11/19 09:00 06/12/19 07:58 Docusate Sodium (Colace) 200 mg QHS PO 06/10/19 21:00 06/11/19 20:41 Home Med (Med Rec Complete!) ASDIRECTED XX 06/10/19 21:45 06/10/19 21:52 DC Levothyroxine Sodium (Synthroid) 75 mcg DAILY@0600 PO 06/11/19 06:00 06/12/19 06:15 Magnesium Hydroxide (Milk Of Magnesia) 30 ml DAILYPRN PRN PO CONSTIPATION 06/10/19 22:00 Multivitamins (Theragram-M) 1 tab DAILY PO 06/11/19 09:00 06/12/19 07:58 Nicotine (Nicorette) 2 mg Q2HP PRN PO NICOTINE WITHDRAWAL 06/11/19 12:00 06/12/19 07:58 Nortriptyline HCl (Pamelor) 50 mg QHS PO 06/10/19 21:00 06/11/19 14:52 DC 06/11/19 00:01 Nortriptyline HCl (Pamelor) 75 mg QHS PO 06/11/19 21:00 06/11/19 20:39 Olanzapine (ZyPREXA) 15 mg QHS PO 06/10/19 21:00 06/11/19 20:41 Pantoprazole Sodium (Protonix) 40 mg DAILY PO 06/11/19 09:00 06/12/19 07:57 Polyethylene Glycol (Miralax) 1 pkt DAILY PO 06/11/19 09:00 Tamsulosin HCl (Flomax) 0.4 mg DAILY PO 06/11/19 09:00 06/12/19 07:58 Tiotropium [place] (Spiriva Handihaler) 1 inhalation DAILY@0800 INH 06/11/19 08:00 06/12/19 07:58 Trazodone HCl (Desyrel) 50 mg QHSP PRN PO INSOMNIA 06/10/19 22:00 06/11/19 20:39 Trihexyphenidyl HCl (Artane) 5 mg QHS PO 06/10/19 21:00 06/11/19 20:40 Allergies Coded Allergies: haloperidol (Verified Adverse Reaction, Severe, EPS, Difficulty Breathing, 05/29/19) loxapine (Verified Adverse Reaction, Severe, Tounge protrsion, diff breathing, 05/29/19) lithium (Verified Adverse Reaction, Intermediate, speech problems, 05/29/19) JULIO SPENCE DO Jun 12, 2019 10:42
[2019-06-12 11:05] LABS: VALPROIC ACID (DEPAKOTE) 72.9 UG/ML (50.0-100.0)
--- NOTE | 2019-06-12 13:52 | IPNPDOC ---
Text Note Date of Service The patient was seen on 06/12/19. NOTE Subjective: has no complaints, denies chest pain, denies SOB GENERAL: NAD SKIN : Warm, dry intact HEENT: Atraumatic, normocephalic, PERRL, moist mucous membrane CARDIOVASCULAR: Regular rate and rhythm, S1S2, no JVD, no edema, distal pulses + palpable RESP: CTAB, no accessory muscle use noted ABDOMEN: BS+ non distended non tender MS: no joint deformities NEURO: Alert and oriented x 3, CN2-12 grossly intact PSYCH: no anxiety or agitation, appropriate mood and affect. Assessment/Plan Hypothyroidism: repeat TSH levels within normal limits. Continue 75mcg BPH: continue flomax DVT Prophylaxis: DVT prophylaxis not indicated, patient is frequently ambulatory VS,Fishbone, I+O VS, Fishbone, I+O Vital Signs Date Time Temp Pulse Resp B/P (MAP) Pulse Ox O2 Delivery O2 Flow Rate FiO2 06/12/19 06:41 97.3 74 12 115/77 (90) 06/10/19 23:47 96 06/10/19 22:43 Room Air MALIK SOLOMON [facility] Jun 12, 2019 13:52
[2019-06-12 18:00] VITALS: BP 108/73
[2019-06-12] MEDS: NORTRIPTYLINE 25 MG CAP PO SCH (20:27)
[2019-06-12] MEDS: cloNIDine 0.1 MG TAB PO SCH (20:28)
[2019-06-12] MEDS: DIVALPROEX 250 MG TAB PO SCH (20:29)
[2019-06-12] MEDS: OLANZapine 5 MG TAB PO SCH (20:30)
[2019-06-12] MEDS: TRIHEXYPHENIDYL 2 MG TAB PO SCH (20:30)
[2019-06-12] MEDS: traZODone 50 MG TAB PO PRN (20:33)
[2019-06-13] MEDS: LEVOTHYROXINE 75MCG TABLET (0.075MG) PO SCH (06:01)
[2019-06-13 07:02] VITALS: BP 101/69
[2019-06-13] MEDS: MIRALAX *UNIT DOSE* 17GM PACKET PO SCH (08:09)
[2019-06-13] MEDS: clonazePAM 0.5 MG TAB PO SCH ×2 (08:11→20:11)
[2019-06-13] MEDS: cloZAPine 100 MG TAB (S0136) PO SCH ×2 (08:11→20:13)
[2019-06-13] MEDS: TAMSULOSIN 0.4 MG CAP PO SCH (08:11)
[2019-06-13] MEDS: DIVALPROEX 500 MG TAB PO SCH ×2 (08:12→15:58)
[2019-06-13] MEDS: DOCUSATE SODIUM 100 MG CAP PO SCH ×2 (08:12→20:12)
[2019-06-13] MEDS: ASPIRIN 81 MG CHEW TABLET PO SCH (08:12)
[2019-06-13] MEDS: PANTOPRAZOLE 40MG TAB (PROTONIX) PO SCH (08:12)
[2019-06-13] MEDS: MULTIVITAMINS/MINERALS THERAP 1 TAB PO SCH (08:12)
[2019-06-13] MEDS: TIOTROPIUM INHALER/CAPSULE (SPIRIVA) INH SCH (08:13)
[2019-06-13] MEDS: NICOTINE POLACRILEX 2 MG GUM PO PRN ×4 (08:13→20:13)
--- NOTE | 2019-06-13 09:22 | MHIPNPDOC ---
[facility] Progress Note Progress Note DATE OF SERVICE: 06/13/19 HISTORY: Per Dr. Lyle jones note: "This is one of multiple hospitalizations for this 59-year-old man with a history of schizoaffective disorder and a resident of [facility] ([facility]). THe patient informed the staff at [facility] that he wanted to cut himself and he wanted to kill himself. The patient had just been discharged from [facility] inpatient mental health unit about 2 weeks ago. He actually shows me what appeared to be significant cuts on his left forearm where he apparently cut and required 23 sutures prior to that hospitalization 2 weeks ago and that was a suicidal attempt. Of note, there are significant older cuts from prior serious attempts. The patient says today that he has been having suicidal thoughts. He is afraid that he will act on these thoughts. Today he tells me that he is not having those thoughts. He says that he is feeling very depressed. He mentions the of his mother. Upon hospitalization, the patient had specific plans of cutting his groin area and inner thigh so that he could just "bleed out." The patient has a diagnosis of schizoaffective disorder and he says that he always hears voices but they are not command type or as disturbing anymore with his current medications." VITAL SIGNS: See below. NEW TEST RESULTS: 05/31/19: ANC 3,942.8 wnl, TSH 7.33, 06/13/29 Depakote level 72.9 (therapeutic), thyroid panel wnl, TSH 3.000 CURRENT MEDICATIONS: See below. MENTAL STATUS EXAMINATION: This patient is alert and oriented times three. He is casually dressed in hospital garments. He is pleasant, cooperative, spontaneous. Eye contact is fair. Mood is depressed. Affect is constricted but appropriate. He has denies auditory hallucinations. He denies suicidal ideations. He denies homicidal ideations. Concentration is fair. Memory is intact. Insight and judgment fair. DIAGNOSES: 1.Schizoaffective disorder, bipolar type 2.Generalized anxiety disorder ASSESSMENT:Pt seen and states that his mood continues to be depressed and states he doesn't feel any different from yesterday, still very depressed. Appears depressed and flat. Denies SI though but appears to be spontaneous when he does have it. States he's tolerating his medications but continues to be uncertain if increased in nortriptyline or depakote by Dr. Alvarenga yesterday beneficial yet. Advised will continue to monitor prior to increase. Well get depakote level as not done on admission. States he slept well last night. He is social in the milieu this am sitting with his peers in the pt lounge and attending grou ps and finding them helpful. He denies SI/HI, hallucinations, delusions. Pt feels safe here. MANAGEMENT PLAN: continue plan. Will decrease zyprexa to 10mg qhs and start rexulti 1mg daily for depression to augment nortriptyline due to pt having no change in mood since admission. Depakote level 72.9 which is therapeutic and increase could lead to depakote toxicity so will not change dose. nortriptyline 75 mg daily clozapine 200 mg twice a day Depakote 500mg qam and 750 mg at night Zyprexa 10 mg at night Klonopin 0.5 mg twice a day clonidine 0.1 mg at night Artane 5 mg at night. Rexulti 1mg daily TIME SPENT: 30 minutes. Vital Signs Vital Signs Date Time Temp Pulse Resp B/P (MAP) Pulse Ox O2 Delivery O2 Flow Rate FiO2 06/13/19 07:02 97.3 71 12 101/69 (80) 06/10/19 23:47 96 06/10/19 22:43 Room Air Current Medications Current Medications Medications (Trade) Dose Ordered Sig/Billy Route PRN Reason Start Time Stop Time Status Last Admin Dose Admin Acetaminophen (Tylenol Tab) 650 mg Q6HP PRN PO HEADACHE or DISCOMFORT 06/10/19 22:00 Al Hydrox/Mg Hydrox/Simethicone (Mylanta) 30 ml Q4HP PRN PO HEARTBURN/INDIGESTION 06/10/19 22:00 Aspirin (Aspirin Chewable) 81 mg DAILY PO 06/11/19 09:00 06/13/19 08:12 Clonazepam (KlonoPIN) 0.5 mg BID PO 06/10/19 21:00 06/13/19 08:11 Clonidine HCl (Catapres) 0.1 mg QHS PO 06/10/19 21:00 06/12/19 20:28 Clozapine (Clozaril) 200 mg BID PO 06/10/19 21:00 06/13/19 08:11 Divalproex Sodium (Depakote) 250 mg QHS PO 06/10/19 21:00 06/12/19 20:29 Divalproex Sodium (Depakote) 500 mg DAILY@0900,1600 PO 06/11/19 09:00 06/13/19 08:12 Docusate Sodium (Colace) 100 mg DAILY PO 06/11/19 09:00 06/13/19 08:12 Docusate Sodium (Colace) 200 mg QHS PO 06/10/19 21:00 06/12/19 20:29 Home Med (Med Rec Complete!) ASDIRECTED XX 06/10/19 21:45 06/10/19 21:52 DC Levothyroxine Sodium (Synthroid) 75 mcg DAILY@0600 PO 06/11/19 06:00 06/13/19 06:01 Magnesium Hydroxide (Milk Of Magnesia) 30 ml DAILYPRN PRN PO CONSTIPATION 06/10/19 22:00 Multivitamins (Theragram-M) 1 tab DAILY PO 06/11/19 09:00 06/13/19 08:12 Nicotine (Nicorette) 2 mg Q2HP PRN PO NICOTINE WITHDRAWAL 06/11/19 12:00 06/13/19 08:13 Nortriptyline HCl (Pamelor) 50 mg QHS PO 06/10/19 21:00 06/11/19 14:52 DC 06/11/19 00:01 Nortriptyline HCl (Pamelor) 75 mg QHS PO 06/11/19 21:00 06/12/19 20:27 Olanzapine (ZyPREXA) 15 mg QHS PO 06/10/19 21:00 06/12/19 20:30 Pantoprazole Sodium (Protonix) 40 mg DAILY PO 06/11/19 09:00 06/13/19 08:12 Polyethylene Glycol (Miralax) 1 pkt DAILY PO 06/11/19 09:00 Tamsulosin HCl (Flomax) 0.4 mg DAILY PO 06/11/19 09:00 06/13/19 08:11 Tiotropium [place] (Spiriva Handihaler) 1 inhalation DAILY@0800 INH 06/11/19 08:00 06/13/19 08:13 Trazodone HCl (Desyrel) 50 mg QHSP PRN PO INSOMNIA 06/10/19 22:00 06/12/19 20:33 Trihexyphenidyl HCl (Artane) 5 mg QHS PO 06/10/19 21:00 06/12/19 20:30 Allergies Coded Allergies: haloperidol (Verified Adverse Reaction, Severe, EPS, Difficulty Breathing, 05/29/19) loxapine (Verified Adverse Reaction, Severe, Tounge protrsion, diff breathing, 05/29/19) lithium (Verified Adverse Reaction, Intermediate, speech problems, 05/29/19) JULIO SPENCE DO Jun 13, 2019 9:21 am
[2019-06-13] MEDS ORDERED: BREXPIPRAZOLE 0.5MG TABLET (REXULTI) PO ONE (10:00)
[2019-06-13 18:13] VITALS: BP 105/61
[2019-06-13] MEDS: cloNIDine 0.1 MG TAB PO SCH (20:11)
[2019-06-13] MEDS: OLANZapine 10 MG TAB PO SCH (20:11)
[2019-06-13] MEDS: TRIHEXYPHENIDYL 2 MG TAB PO SCH (20:11)
[2019-06-13] MEDS: NORTRIPTYLINE 25 MG CAP PO SCH (20:12)
[2019-06-13] MEDS: DIVALPROEX 250 MG TAB PO SCH (20:12)
[2019-06-13] MEDS: traZODone 50 MG TAB PO PRN (20:12)
[2019-06-14] MEDS: LEVOTHYROXINE 75MCG TABLET (0.075MG) PO SCH (06:08)
[2019-06-14 06:41] VITALS: BP 104/64
[2019-06-14] MEDS: TIOTROPIUM INHALER/CAPSULE (SPIRIVA) INH SCH (08:15)
[2019-06-14] MEDS: clonazePAM 0.5 MG TAB PO SCH ×2 (08:15→20:15)
[2019-06-14] MEDS: ASPIRIN 81 MG CHEW TABLET PO SCH (08:15)
[2019-06-14] MEDS: MULTIVITAMINS/MINERALS THERAP 1 TAB PO SCH (08:15)
[2019-06-14] MEDS: cloZAPine 100 MG TAB (S0136) PO SCH ×2 (08:15→20:15)
[2019-06-14] MEDS: TAMSULOSIN 0.4 MG CAP PO SCH (08:16)
[2019-06-14] MEDS: DOCUSATE SODIUM 100 MG CAP PO SCH ×2 (08:16→20:12)
[2019-06-14] MEDS: PANTOPRAZOLE 40MG TAB (PROTONIX) PO SCH (08:16)
[2019-06-14] MEDS: DIVALPROEX 500 MG TAB PO SCH ×2 (08:16→16:09)
[2019-06-14] MEDS: BREXPIPRAZOLE 0.5MG TABLET (REXULTI) PO SCH (08:16)
[2019-06-14] MEDS: MIRALAX *UNIT DOSE* 17GM PACKET PO SCH (08:19)
[2019-06-14] MEDS: NICOTINE POLACRILEX 2 MG GUM PO PRN ×3 (08:21→20:12)
--- NOTE | 2019-06-14 09:45 | MHIPNPDOC ---
[facility] Progress Note Progress Note DATE OF SERVICE: 06/14/19 HISTORY: Per Dr. Lyle robertsit note: "This is one of multiple hospitalizations for this 59-year-old man with a history of schizoaffective disorder and a resident of [facility] ([facility]). THe patient informed the staff at [facility] that he wanted to cut himself and he wanted to kill himself. The patient had just been discharged from [facility] inpatient mental health unit about 2 weeks ago. He actually shows me what appeared to be significant cuts on his left forearm where he apparently cut and required 23 sutures prior to that hospitalization 2 weeks ago and that was a suicidal attempt. Of note, there are significant older cuts from prior serious attempts. The patient says today that he has been having suicidal thoughts. He is afraid that he will act on these thoughts. Today he tells me that he is not having those thoughts. He says that he is feeling very depressed. He mentions the of his mother. Upon hospitalization, the patient had specific plans of cutting his groin area and inner thigh so that he could just "bleed out." The patient has a diagnosis of schizoaffective disorder and he says that he always hears voices but they are not command type or as disturbing anymore with his current medications." VITAL SIGNS: See below. NEW TEST RESULTS: 05/31/19: ANC 3,942.8 wnl, TSH 7.33, 06/13/29 Depakote level 72.9 (therapeutic), thyroid panel wnl, TSH 3.000 CURRENT MEDICATIONS: See below. MENTAL STATUS EXAMINATION: This patient is alert and oriented times three. He is casually dressed in hospital garments. He is pleasant, cooperative, spontaneous. Eye contact is good. Mood is less depressed. Affect is less constricted but appropriate. He is more talkative today today. He has denies auditory hallucinations. He denies suicidal ideations. He denies homicidal ideations. Concentration is fair. Memory is intact. Insight and judgment fair. DIAGNOSES: 1.Schizoaffective disorder, bipolar type 2.Generalized anxiety disorder ASSESSMENT:Pt seen and states that his mood is better today but would like to increase his nortriptyline to keep his mood stable as feels that would be best for him and agreeable to increasing med. States combination of nortriptyline and rexulti beneficial and he's tolerating both well. Improved anxiety/worry with rexulti. Appears less depressed and flat. Denies SI though but appears to be spontaneous when he does have it. States he's tolerating his medications. States he slept well last night. He is social in the milieu this am sitting with his peers in the pt lounge and attending groups and finding them helpful. Encouraged to talk with his peers about himself as a way of therapeutic venting to improve his mood and anxiety. He denies SI/HI, hallucinations, delusions. Pt feels safe here. MANAGEMENT PLAN: continue plan. Will decrease zyprexa to 10mg qhs and start rexulti 1mg daily for depression to augment nortriptyline due to pt having no change in mood since admission. Depakote level 72.9 which is therapeutic and increase could lead to depakote toxicity so will not change dose. nortriptyline 100 mg daily clozapine 200 mg twice a day Depakote 500mg qam and 750 mg at night Zyprexa 10 mg at night Klonopin 0.5 mg twice a day clonidine 0.1 mg at night Artane 5 mg at night. Rexulti 1mg daily TIME SPENT: 30 minutes. Vital Signs Vital Signs Date Time Temp Pulse Resp B/P (MAP) Pulse Ox O2 Delivery O2 Flow Rate FiO2 06/14/19 06:41 98.1 77 16 104/64 (77) 06/13/19 18:13 94 06/10/19 22:43 Room Air Current Medications Current Medications Medications (Trade) Dose Ordered Sig/Billy Route PRN Reason Start Time Stop Time Status Last Admin Dose Admin Acetaminophen (Tylenol Tab) 650 mg Q6HP PRN PO HEADACHE or DISCOMFORT 06/10/19 22:00 Al Hydrox/Mg Hydrox/Simethicone (Mylanta) 30 ml Q4HP PRN PO HEARTBURN/INDIGESTION 06/10/19 22:00 Aspirin (Aspirin Chewable) 81 mg DAILY PO 06/11/19 09:00 06/14/19 08:15 Brexpiprazole (Rexulti) 1 mg DAILY PO 06/14/19 09:00 06/14/19 08:16 Clonazepam (KlonoPIN) 0.5 mg BID PO 06/10/19 21:00 06/14/19 08:15 Clonidine HCl (Catapres) 0.1 mg QHS PO 06/10/19 21:00 06/13/19 20:11 Clozapine (Clozaril) 200 mg BID PO 06/10/19 21:00 06/14/19 08:15 Divalproex Sodium (Depakote) 250 mg QHS PO 06/10/19 21:00 06/13/19 20:12 Divalproex Sodium (Depakote) 500 mg DAILY@0900,1600 PO 06/11/19 09:00 06/14/19 08:16 Docusate Sodium (Colace) 100 mg DAILY PO 06/11/19 09:00 06/14/19 08:16 Docusate Sodium (Colace) 200 mg QHS PO 06/10/19 21:00 06/13/19 20:12 Home Med (Med Rec Complete!) ASDIRECTED XX 06/10/19 21:45 06/10/19 21:52 DC Levothyroxine Sodium (Synthroid) 75 mcg DAILY@0600 PO 06/11/19 06:00 06/14/19 06:08 Magnesium Hydroxide (Milk Of Magnesia) 30 ml DAILYPRN PRN PO CONSTIPATION 06/10/19 22:00 Multivitamins (Theragram-M) 1 tab DAILY PO 06/11/19 09:00 06/14/19 08:15 Nicotine (Nicorette) 2 mg Q2HP PRN PO NICOTINE WITHDRAWAL 06/11/19 12:00 06/14/19 08:21 Nortriptyline HCl (Pamelor) 50 mg QHS PO 06/10/19 21:00 06/11/19 14:52 DC 06/11/19 00:01 Nortriptyline HCl (Pamelor) 75 mg QHS PO 06/11/19 21:00 06/13/19 20:12 Olanzapine (ZyPREXA) 10 mg QHS PO 06/13/19 21:00 06/13/19 20:11 Olanzapine (ZyPREXA) 15 mg QHS PO 06/10/19 21:00 06/13/19 09:22 DC 06/12/19 20:30 Pantoprazole Sodium (Protonix) 40 mg DAILY PO 06/11/19 09:00 06/14/19 08:16 Polyethylene Glycol (Miralax) 1 pkt DAILY PO 06/11/19 09:00 Tamsulosin HCl (Flomax) 0.4 mg DAILY PO 06/11/19 09:00 06/14/19 08:16 Tiotropium [place] (Spiriva Handihaler) 1 inhalation DAILY@0800 INH 06/11/19 08:00 06/14/19 08:15 Trazodone HCl (Desyrel) 50 mg QHSP PRN PO INSOMNIA 06/10/19 22:00 06/13/19 20:12 Trihexyphenidyl HCl (Artane) 5 mg QHS PO 06/10/19 21:00 06/13/19 20:11 Allergies Coded Allergies: haloperidol (Verified Adverse Reaction, Severe, EPS, Difficulty Breathing, 05/29/19) loxapine (Verified Adverse Reaction, Severe, Tounge protrsion, diff breathing, 05/29/19) lithium (Verified Adverse Reaction, Intermediate, speech problems, 05/29/19) JULIO SPENCE DO Jun 14, 2019 9:45 am
[2019-06-14 18:00] VITALS: BP 123/67
[2019-06-14] MEDS: PILL CUTTER 1 EACH XX PRN (20:11)
[2019-06-14] MEDS: traZODone 50 MG TAB PO PRN (20:12)
[2019-06-14] MEDS: DIVALPROEX 250 MG TAB PO SCH (20:12)
[2019-06-14] MEDS: OLANZapine 10 MG TAB PO SCH (20:12)
[2019-06-14] MEDS: cloNIDine 0.1 MG TAB PO SCH (20:14)
[2019-06-14] MEDS: NORTRIPTYLINE 25 MG CAP PO SCH (20:15)
[2019-06-14] MEDS: TRIHEXYPHENIDYL 2 MG TAB PO SCH (20:16)
[2019-06-14 20:44] VITALS: BP 125/81
[2019-06-15] MEDS: NICOTINE POLACRILEX 2 MG GUM PO PRN ×5 (05:32→20:09)
[2019-06-15] MEDS: LEVOTHYROXINE 75MCG TABLET (0.075MG) PO SCH (05:32)
[2019-06-15 06:41] VITALS: BP 108/66
[2019-06-15] MEDS: cloZAPine 100 MG TAB (S0136) PO SCH ×2 (08:13→20:09)
[2019-06-15] MEDS: DOCUSATE SODIUM 100 MG CAP PO SCH ×2 (08:13→20:09)
[2019-06-15] MEDS: DIVALPROEX 500 MG TAB PO SCH ×2 (08:13→15:13)
[2019-06-15] MEDS: clonazePAM 0.5 MG TAB PO SCH ×2 (08:13→20:09)
[2019-06-15] MEDS: ASPIRIN 81 MG CHEW TABLET PO SCH (08:13)
[2019-06-15] MEDS: MULTIVITAMINS/MINERALS THERAP 1 TAB PO SCH (08:14)
[2019-06-15] MEDS: PANTOPRAZOLE 40MG TAB (PROTONIX) PO SCH (08:14)
[2019-06-15] MEDS: BREXPIPRAZOLE 0.5MG TABLET (REXULTI) PO SCH (08:14)
[2019-06-15] MEDS: TAMSULOSIN 0.4 MG CAP PO SCH (08:16)
[2019-06-15] MEDS: TIOTROPIUM INHALER/CAPSULE (SPIRIVA) INH SCH (08:16)
[2019-06-15] MEDS: MIRALAX *UNIT DOSE* 17GM PACKET PO SCH (08:16)
--- NOTE | 2019-06-15 09:15 | MHIPNPDOC ---
[facility] Progress Note Progress Note DATE OF SERVICE: 06/15/19 HISTORY: Per Dr. Lyle jones note: "This is one of multiple hospitalizations for this 59-year-old man with a history of schizoaffective disorder and a resident of [facility] ([facility]). THe patient informed the staff at [facility] that he wanted to cut himself and he wanted to kill himself. The patient had just been discharged from [facility] inpatient mental health unit about 2 weeks ago. He actually shows me what appeared to be significant cuts on his left forearm where he apparently cut and required 23 sutures prior to that hospitalization 2 weeks ago and that was a suicidal attempt. Of note, there are significant older cuts from prior serious attempts. The patient says today that he has been having suicidal thoughts. He is afraid that he will act on these thoughts. Today he tells me that he is not having those thoughts. He says that he is feeling very depressed. He mentions the of his mother. Upon hospitalization, the patient had specific plans of cutting his groin area and inner thigh so that he could just "bleed out." The patient has a diagnosis of schizoaffective disorder and he says that he always hears voices but they are not command type or as disturbing anymore with his current medications." VITAL SIGNS: See below. NEW TEST RESULTS: 05/31/19: ANC 3,942.8 wnl, TSH 7.33, 06/13/29 Depakote level 72.9 (therapeutic), thyroid panel wnl, TSH 3.000 CURRENT MEDICATIONS: See below. MENTAL STATUS EXAMINATION: This patient is alert and oriented times three. He is casually dressed in his own clothing and clean. He is pleasant, cooperative, spontaneous. Eye contact is good. Mood is euthymic. Affect is remains flat though but appropriate and interested with appropriate questions. He is more talkative with spontaneous speech today. He has denies auditory hallucinations. He denies suicidal ideations. He denies homicidal ideations. Concentration is good. Memory is intact. Insight and judgment fair. DIAGNOSES: 1.Schizoaffective disorder, bipolar type 2.Generalized anxiety disorder ASSESSMENT:Pt seen and states that his mood is "alright" today as he's finding his nortriptyline and rexulti beneficial. States rexulti is helping his worrisome thoughts which allows him to feel less depressed States combination of nortriptyline and rexulti beneficial and he's tolerating both well. Improved anxiety/worry with rexulti. Appears euthymic yet flat. Denies SI though but appears to be spontaneous when he does have it. States he's tolerating his medications. States he slept well last night. He is social in the milieu this am sitting with his peers in the pt lounge and attending groups and finding them helpful. Encouraged to talk with his peers about himself as a way of therapeutic venting to improve his mood and anxiety. He denies SI/HI, hallucinations, delusions. Pt feels safe here. MANAGEMENT PLAN: continue plan. nortriptyline 100 mg daily clozapine 200 mg twice a day Depakote 500mg qam and 750 mg at night Zyprexa 10 mg at night Klonopin 0.5 mg twice a day clonidine 0.1 mg at night Artane 5 mg at night. Rexulti 1mg daily TIME SPENT: 30 minutes. Vital Signs Vital Signs Date Time Temp Pulse Resp B/P (MAP) Pulse Ox O2 Delivery O2 Flow Rate FiO2 06/15/19 06:41 97.1 77 14 108/66 (80) 06/13/19 18:13 94 06/10/19 22:43 Room Air Current Medications Current Medications Medications (Trade) Dose Ordered Sig/Billy Route PRN Reason Start Time Stop Time Status Last Admin Dose Admin Acetaminophen (Tylenol Tab) 650 mg Q6HP PRN PO HEADACHE or DISCOMFORT 06/10/19 22:00 Al Hydrox/Mg Hydrox/Simethicone (Mylanta) 30 ml Q4HP PRN PO HEARTBURN/INDIGESTION 06/10/19 22:00 Aspirin (Aspirin Chewable) 81 mg DAILY PO 06/11/19 09:00 06/15/19 08:13 Brexpiprazole (Rexulti) 1 mg DAILY PO 06/14/19 09:00 06/15/19 08:14 Clonazepam (KlonoPIN) 0.5 mg BID PO 06/10/19 21:00 06/15/19 08:13 Clonidine HCl (Catapres) 0.1 mg QHS PO 06/10/19 21:00 06/14/19 20:14 Clozapine (Clozaril) 200 mg BID PO 06/10/19 21:00 8/1/19 08:13 Divalproex Sodium (Depakote) 250 mg QHS PO 06/10/19 21:00 06/14/19 20:12 Divalproex Sodium (Depakote) 500 mg DAILY@0900,1600 PO 06/11/19 09:00 06/15/19 08:13 Docusate Sodium (Colace) 100 mg DAILY PO 06/11/19 09:00 06/15/19 08:13 Docusate Sodium (Colace) 200 mg QHS PO 06/10/19 21:00 06/14/19 20:12 Home Med (Med Rec Complete!) ASDIRECTED XX 06/10/19 21:45 06/10/19 21:52 DC Levothyroxine Sodium (Synthroid) 75 mcg DAILY@0600 PO 06/11/19 06:00 06/15/19 05:32 Magnesium Hydroxide (Milk Of Magnesia) 30 ml DAILYPRN PRN PO CONSTIPATION 06/10/19 22:00 Multivitamins (Theragram-M) 1 tab DAILY PO 06/11/19 09:00 06/15/19 08:14 Nicotine (Nicorette) 2 mg Q2HP PRN PO NICOTINE WITHDRAWAL 06/11/19 12:00 06/15/19 08:26 Nortriptyline HCl (Pamelor) 50 mg QHS PO 06/10/19 21:00 06/11/19 14:52 DC 06/11/19 00:01 Nortriptyline HCl (Pamelor) 75 mg QHS PO 06/11/19 21:00 06/14/19 20:15 Olanzapine (ZyPREXA) 10 mg QHS PO 06/13/19 21:00 06/14/19 20:12 Olanzapine (ZyPREXA) 15 mg QHS PO 06/10/19 21:00 06/13/19 09:22 DC 06/12/19 20:30 Pantoprazole Sodium (Protonix) 40 mg DAILY PO 06/11/19 09:00 06/15/19 08:14 Polyethylene Glycol (Miralax) 1 pkt DAILY PO 06/11/19 09:00 06/15/19 08:16 Tamsulosin HCl (Flomax) 0.4 mg DAILY PO 06/11/19 09:00 06/15/19 08:16 Tiotropium [place] (Spiriva Handihaler) 1 inhalation DAILY@0800 INH 06/11/19 08:00 06/15/19 08:16 Trazodone HCl (Desyrel) 50 mg QHSP PRN PO INSOMNIA 06/10/19 22:00 06/14/19 20:12 Trihexyphenidyl HCl (Artane) 5 mg QHS PO 06/10/19 21:00 06/14/19 20:16 Allergies Coded Allergies: haloperidol (Verified Adverse Reaction, Severe, EPS, Difficulty Breathing, 05/29/19) loxapine (Verified Adverse Reaction, Severe, Tounge protrsion, diff breathing, 05/29/19) lithium (Verified Adverse Reaction, Intermediate, speech problems, 05/29/19) JULIO SPENCE DO Jun 15, 2019 9:15 am
[2019-06-15 18:00] VITALS: BP 117/80
[2019-06-15] MEDS: NORTRIPTYLINE 25 MG CAP PO SCH (20:09)
[2019-06-15] MEDS: OLANZapine 10 MG TAB PO SCH (20:09)
[2019-06-15] MEDS: DIVALPROEX 250 MG TAB PO SCH (20:09)
[2019-06-15] MEDS: traZODone 50 MG TAB PO PRN (20:09)
[2019-06-15] MEDS: cloNIDine 0.1 MG TAB PO SCH (20:10)
[2019-06-15] MEDS: TRIHEXYPHENIDYL 2 MG TAB PO SCH (20:10)
[2019-06-15] MEDS: PILL CUTTER 1 EACH XX PRN (20:13)
[2019-06-16] MEDS: LEVOTHYROXINE 75MCG TABLET (0.075MG) PO SCH (06:04)
[2019-06-16 06:49] VITALS: BP 101/63
[2019-06-16] MEDS: MIRALAX *UNIT DOSE* 17GM PACKET PO SCH (07:44)
[2019-06-16] MEDS: TAMSULOSIN 0.4 MG CAP PO SCH (07:46)
[2019-06-16] MEDS: clonazePAM 0.5 MG TAB PO SCH ×2 (07:46→20:17)
[2019-06-16] MEDS: DOCUSATE SODIUM 100 MG CAP PO SCH ×2 (07:46→20:17)
[2019-06-16] MEDS: ASPIRIN 81 MG CHEW TABLET PO SCH (07:46)
[2019-06-16] MEDS: TIOTROPIUM INHALER/CAPSULE (SPIRIVA) INH SCH (07:46)
[2019-06-16] MEDS: NICOTINE POLACRILEX 2 MG GUM PO PRN ×4 (07:46→20:17)
[2019-06-16] MEDS: DIVALPROEX 500 MG TAB PO SCH ×2 (07:46→15:32)
[2019-06-16] MEDS: BREXPIPRAZOLE 0.5MG TABLET (REXULTI) PO SCH (07:46)
[2019-06-16] MEDS: cloZAPine 100 MG TAB (S0136) PO SCH ×2 (07:47→20:17)
[2019-06-16] MEDS: MULTIVITAMINS/MINERALS THERAP 1 TAB PO SCH (07:47)
[2019-06-16] MEDS: PANTOPRAZOLE 40MG TAB (PROTONIX) PO SCH (07:47)
--- NOTE | 2019-06-16 10:49 | MHIPNPDOC ---
[facility] Progress Note Progress Note DATE OF SERVICE: 06/16/19 HISTORY: Per Dr. Lyle jones note: "This is one of multiple hospitalizations for this 59-year-old man with a history of schizoaffective disorder and a resident of [facility] ([facility]). THe patient informed the staff at [facility] that he wanted to cut himself and he wanted to kill himself. The patient had just been discharged from [facility] inpatient mental health unit about 2 weeks ago. He actually shows me what appeared to be significant cuts on his left forearm where he apparently cut and required 23 sutures prior to that hospitalization 2 weeks ago and that was a suicidal attempt. Of note, there are significant older cuts from prior serious attempts. The patient says today that he has been having suicidal thoughts. He is afraid that he will act on these thoughts. Today he tells me that he is not having those thoughts. He says that he is feeling very depressed. He mentions the of his mother. Upon hospitalization, the patient had specific plans of cutting his groin area and inner thigh so that he could just "bleed out." The patient has a diagnosis of schizoaffective disorder and he says that he always hears voices but they are not command type or as disturbing anymore with his current medications." VITAL SIGNS: See below. NEW TEST RESULTS: 05/31/19: ANC 3,942.8 wnl, TSH 7.33, 06/13/29 Depakote level 72.9 (therapeutic), thyroid panel wnl, TSH 3.000 CURRENT MEDICATIONS: See below. MENTAL STATUS EXAMINATION: This patient is alert and oriented times three. He is casually dressed in his own clothing and clean. He is pleasant, cooperative, spontaneous. Eye contact is good. Mood is euthymic. Affect is remains flat though but appropriate and interested with appropriate questions. He is more talkative with spontaneous speech today. He has denies auditory hallucinations. He denies suicidal ideations. He denies homicidal ideations. Concentration is good. Memory is intact. Insight and judgment fair. DIAGNOSES: 1.Schizoaffective disorder, bipolar type 2.Generalized anxiety disorder ASSESSMENT:Pt seen and states that his mood is "ok" today as he's finding his nortriptyline and rexulti beneficial. States rexulti is helping his worrisome thoughts which allows him to feel less depressed States combination of nortriptyline and rexulti beneficial and he's tolerating both well. Improved anxiety/worry with rexulti. Appears euthymic yet flat. Denies SI though but appears to be spontaneous when he does have it. States he's tolerating his medications. States he slept well last night. He is social in the milieu this am sitting with his peers in the pt lounge and attending groups and finding them helpful. Encouraged to talk with his peers about himself as a way of therapeutic venting to improve his mood and anxiety. He denies SI/HI, hallucinations, delusions. Pt feels safe here. No change from yesterday and is overall improving psychiatrically. MANAGEMENT PLAN: continue plan. nortriptyline 100 mg qhs clozapine 200 mg twice a day Depakote 500mg qam and 750 mg at night Zyprexa 10 mg at night Klonopin 0.5 mg twice a day clonidine 0.1 mg at night Artane 5 mg at night. Rexulti 1mg daily TIME SPENT: 30 minutes. Vital Signs Vital Signs Date Time Temp Pulse Resp B/P (MAP) Pulse Ox O2 Delivery O2 Flow Rate FiO2 06/16/19 06:49 97.5 62 14 101/63 (76) 06/13/19 18:13 94 06/10/19 22:43 Room Air Current Medications Current Medications Medications (Trade) Dose Ordered Sig/Billy Route PRN Reason Start Time Stop Time Status Last Admin Dose Admin Acetaminophen (Tylenol Tab) 650 mg Q6HP PRN PO HEADACHE or DISCOMFORT 06/10/19 22:00 Al Hydrox/Mg Hydrox/Simethicone (Mylanta) 30 ml Q4HP PRN PO HEARTBURN/INDIGESTION 06/10/19 22:00 Aspirin (Aspirin Chewable) 81 mg DAILY PO 06/11/19 09:00 06/16/19 07:46 Brexpiprazole (Rexulti) 1 mg DAILY PO 06/14/19 09:00 06/16/19 07:46 Clonazepam (KlonoPIN) 0.5 mg BID PO 06/10/19 21:00 06/16/19 07:46 Clonidine HCl (Catapres) 0.1 mg QHS PO 06/10/19 21:00 06/15/19 20:10 Clozapine (Clozaril) 200 mg BID PO 06/10/19 21:00 06/16/19 07:47 Divalproex Sodium (Depakote) 250 mg QHS PO 06/10/19 21:00 06/15/19 20:09 Divalproex Sodium (Depakote) 500 mg DAILY@0900,1600 PO 06/11/19 09:00 06/16/19 07:46 Docusate Sodium (Colace) 100 mg DAILY PO 06/11/19 09:00 06/16/19 07:46 Docusate Sodium (Colace) 200 mg QHS PO 06/10/19 21:00 06/15/19 20:09 Home Med (Med Rec Complete!) ASDIRECTED XX 06/10/19 21:45 06/10/19 21:52 DC Levothyroxine Sodium (Synthroid) 75 mcg DAILY@0600 PO 06/11/19 06:00 06/16/19 06:04 Magnesium Hydroxide (Milk Of Magnesia) 30 ml DAILYPRN PRN PO CONSTIPATION 06/10/19 22:00 Multivitamins (Theragram-M) 1 tab DAILY PO 06/11/19 09:00 06/16/19 07:47 Nicotine (Nicorette) 2 mg Q2HP PRN PO NICOTINE WITHDRAWAL 06/11/19 12:00 06/16/19 07:46 Nortriptyline HCl (Pamelor) 50 mg QHS PO 06/10/19 21:00 06/11/19 14:52 DC 06/11/19 00:01 Nortriptyline HCl (Pamelor) 75 mg QHS PO 06/11/19 21:00 06/15/19 20:09 Olanzapine (ZyPREXA) 10 mg QHS PO 06/13/19 21:00 06/15/19 20:09 Olanzapine (ZyPREXA) 15 mg QHS PO 06/10/19 21:00 06/13/19 09:22 DC 06/12/19 20:30 Pantoprazole Sodium (Protonix) 40 mg DAILY PO 06/11/19 09:00 06/16/19 07:47 Polyethylene Glycol (Miralax) 1 pkt DAILY PO 06/11/19 09:00 06/15/19 08:16 Tamsulosin HCl (Flomax) 0.4 mg DAILY PO 06/11/19 09:00 06/16/19 07:46 Tiotropium [place] (Spiriva Handihaler) 1 inhalation DAILY@0800 INH 06/11/19 08:00 06/16/19 07:46 Trazodone HCl (Desyrel) 50 mg QHSP PRN PO INSOMNIA 06/10/19 22:00 06/15/19 20:09 Trihexyphenidyl HCl (Artane) 5 mg QHS PO 06/10/19 21:00 06/15/19 20:10 Allergies Coded Allergies: haloperidol (Verified Adverse Reaction, Severe, EPS, Difficulty Breathing, 05/29/19) loxapine (Verified Adverse Reaction, Severe, Tounge protrsion, diff breathing, 05/29/19) lithium (Verified Adverse Reaction, Intermediate, speech problems, 05/29/19) JULIO SPENCE DO Jun 16, 2019 10:49 am
[2019-06-16 18:00] VITALS: BP 117/77
[2019-06-16] MEDS: OLANZapine 10 MG TAB PO SCH (20:18)
[2019-06-16] MEDS: DIVALPROEX 250 MG TAB PO SCH (20:18)
[2019-06-16] MEDS: NORTRIPTYLINE 25 MG CAP PO SCH (20:18)
[2019-06-16] MEDS: traZODone 50 MG TAB PO PRN (20:18)
[2019-06-16] MEDS: cloNIDine 0.1 MG TAB PO SCH (20:18)
[2019-06-16] MEDS: PILL CUTTER 1 EACH XX PRN (20:19)
[2019-06-16] MEDS: TRIHEXYPHENIDYL 2 MG TAB PO SCH (20:19)
[2019-06-17] MEDS: LEVOTHYROXINE 75MCG TABLET (0.075MG) PO SCH (06:07)
[2019-06-17 06:50] VITALS: BP 116/74
[2019-06-17] MEDS: MIRALAX *UNIT DOSE* 17GM PACKET PO SCH (08:17)
[2019-06-17] MEDS: DOCUSATE SODIUM 100 MG CAP PO SCH ×2 (08:20→20:49)
[2019-06-17] MEDS: BREXPIPRAZOLE 0.5MG TABLET (REXULTI) PO SCH (08:20)
[2019-06-17] MEDS: DIVALPROEX 500 MG TAB PO SCH ×2 (08:20→16:40)
[2019-06-17] MEDS: ASPIRIN 81 MG CHEW TABLET PO SCH (08:20)
[2019-06-17] MEDS: PANTOPRAZOLE 40MG TAB (PROTONIX) PO SCH (08:20)
[2019-06-17] MEDS: TIOTROPIUM INHALER/CAPSULE (SPIRIVA) INH SCH (08:20)
[2019-06-17] MEDS: cloZAPine 100 MG TAB (S0136) PO SCH ×2 (08:20→20:49)
[2019-06-17] MEDS: clonazePAM 0.5 MG TAB PO SCH ×2 (08:21→20:49)
[2019-06-17] MEDS: TAMSULOSIN 0.4 MG CAP PO SCH (08:21)
[2019-06-17] MEDS: MULTIVITAMINS/MINERALS THERAP 1 TAB PO SCH (08:21)
[2019-06-17] MEDS: NICOTINE POLACRILEX 2 MG GUM PO PRN ×4 (08:24→20:50)
--- NOTE | 2019-06-17 09:29 | MHIPNPDOC ---
[facility] Progress Note Progress Note DATE OF SERVICE: 06/17/19 HISTORY: Per Dr. Lyle jones note: "This is one of multiple hospitalizations for this 59-year-old man with a history of schizoaffective disorder and a resident of [facility] ([facility]). THe patient informed the staff at [facility] that he wanted to cut himself and he wanted to kill himself. The patient had just been discharged from [facility] inpatient mental health unit about 2 weeks ago. He actually shows me what appeared to be significant cuts on his left forearm where he apparently cut and required 23 sutures prior to that hospitalization 2 weeks ago and that was a suicidal attempt. Of note, there are significant older cuts from prior serious attempts. The patient says today that he has been having suicidal thoughts. He is afraid that he will act on these thoughts. Today he tells me that he is not having those thoughts. He says that he is feeling very depressed. He mentions the of his mother. Upon hospitalization, the patient had specific plans of cutting his groin area and inner thigh so that he could just "bleed out." The patient has a diagnosis of schizoaffective disorder and he says that he always hears voices but they are not command type or as disturbing anymore with his current medications." VITAL SIGNS: See below. NEW TEST RESULTS: 05/31/19: ANC 3,942.8 wnl, TSH 7.33, 06/13/29 Depakote level 72.9 (therapeutic), thyroid panel wnl, TSH 3.000 CURRENT MEDICATIONS: See below. MENTAL STATUS EXAMINATION: This patient is alert and oriented times three. He is casually dressed in his own clothing and clean. He is pleasant, cooperative, spontaneous. Eye contact is good. Mood is euthymic. Affect is less flat though but appropriate and interested with appropriate questions. He is more talkative with spontaneous speech today. He has denies auditory hallucinations. He denies suicidal ideations. He denies homicidal ideations. Concentration is good. Memory is intact. Insight and judgment fair. DIAGNOSES: 1.Schizoaffective disorder, bipolar type 2.Generalized anxiety disorder ASSESSMENT:Pt seen and states that his mood is "alright" today as he's finding his nortriptyline and rexulti beneficial. Improved anxiety/worry with rexulti. Appears euthymic yet flat. Denies SI though but appears to be spontaneous when he does have it. States he's tolerating his medications. States he slept well last night. He is social in the milieu this am sitting with his peers in the pt lounge and attending groups and finding them helpful. Encouraged to talk with his peers about himself as a way of therapeutic venting to improve his mood and anxiety. He denies SI/HI, hallucinations, delusions. Pt feels safe here. No change from yesterday and is overall improving psychiatrically. MANAGEMENT PLAN: continue plan. nortriptyline 100 mg qhs clozapine 200 mg twice a day Depakote 500mg qam and 750 mg at night Zyprexa 10 mg at night Klonopin 0.5 mg twice a day clonidine 0.1 mg at night Artane 5 mg at night. Rexulti 1mg daily TIME SPENT: 30 minutes. Vital Signs Vital Signs Date Time Temp Pulse Resp B/P (MAP) Pulse Ox O2 Delivery O2 Flow Rate FiO2 06/17/19 06:50 96.8 77 12 116/74 (88) 06/13/19 18:13 94 Current Medications Current Medications Medications (Trade) Dose Ordered Sig/Billy Route PRN Reason Start Time Stop Time Status Last Admin Dose Admin Acetaminophen (Tylenol Tab) 650 mg Q6HP PRN PO HEADACHE or DISCOMFORT 06/10/19 22:00 Al Hydrox/Mg Hydrox/Simethicone (Mylanta) 30 ml Q4HP PRN PO HEARTBURN/INDIGESTION 06/10/19 22:00 Aspirin (Aspirin Chewable) 81 mg DAILY PO 06/11/19 09:00 06/17/19 08:20 Brexpiprazole (Rexulti) 1 mg DAILY PO 06/14/19 09:00 06/17/19 08:20 Clonazepam (KlonoPIN) 0.5 mg BID PO 06/10/19 21:00 06/17/19 08:21 Clonidine HCl (Catapres) 0.1 mg QHS PO 06/10/19 21:00 06/16/19 20:18 Clozapine (Clozaril) 200 mg BID PO 06/10/19 21:00 06/17/19 08:20 Divalproex Sodium (Depakote) 250 mg QHS PO 06/10/19 21:00 06/16/19 20:18 Divalproex Sodium (Depakote) 500 mg DAILY@0900,1600 PO 06/11/19 09:00 06/17/19 08:20 Docusate Sodium (Colace) 100 mg DAILY PO 06/11/19 09:00 06/17/19 08:20 Docusate Sodium (Colace) 200 mg QHS PO 06/10/19 21:00 06/16/19 20:17 Home Med (Med Rec Complete!) ASDIRECTED XX 06/10/19 21:45 06/10/19 21:52 DC Levothyroxine Sodium (Synthroid) 75 mcg DAILY@0600 PO 06/11/19 06:00 06/17/19 06:07 Magnesium Hydroxide (Milk Of Magnesia) 30 ml DAILYPRN PRN PO CONSTIPATION 06/10/19 22:00 Miscellaneous (Unresolved Clarification Entry) SEE LABEL COMMENTS DAILY XX 06/17/19 09:00 06/17/19 09:00 DC Miscellaneous (Unresolved Clarification Entry) SEE LABEL COMMENTS DAILY XX 06/17/19 09:00 Multivitamins (Theragram-M) 1 tab DAILY PO 06/11/19 09:00 06/17/19 08:21 Nicotine (Nicorette) 2 mg Q2HP PRN PO NICOTINE WITHDRAWAL 06/11/19 12:00 06/17/19 08:24 Nortriptyline HCl (Pamelor) 50 mg QHS PO 06/10/19 21:00 06/11/19 14:52 DC 06/11/19 00:01 Nortriptyline HCl (Pamelor) 75 mg QHS PO 06/11/19 21:00 06/16/19 10:49 DC 06/15/19 20:09 Nortriptyline HCl (Pamelor) 100 mg QHS PO 06/16/19 21:00 06/16/19 20:18 Olanzapine (ZyPREXA) 10 mg QHS PO 06/13/19 21:00 06/16/19 20:18 Olanzapine (ZyPREXA) 15 mg QHS PO 06/10/19 21:00 06/13/19 09:22 DC 06/12/19 20:30 Pantoprazole Sodium (Protonix) 40 mg DAILY PO 06/11/19 09:00 06/17/19 08:20 Polyethylene Glycol (Miralax) 1 pkt DAILY PO 06/11/19 09:00 06/15/19 08:16 Tamsulosin HCl (Flomax) 0.4 mg DAILY PO 06/11/19 09:00 06/17/19 08:21 Tiotropium [place] (Spiriva Handihaler) 1 inhalation DAILY@0800 INH 06/11/19 08:00 06/17/19 08:20 Trazodone HCl (Desyrel) 50 mg QHSP PRN PO INSOMNIA 06/10/19 22:00 06/16/19 20:18 Trihexyphenidyl HCl (Artane) 5 mg QHS PO 06/10/19 21:00 06/16/19 20:19 Allergies Coded Allergies: haloperidol (Verified Adverse Reaction, Severe, EPS, Difficulty Breathing, 05/29/19) loxapine (Verified Adverse Reaction, Severe, Tounge protrsion, diff breathing, 05/29/19) lithium (Verified Adverse Reaction, Intermediate, speech problems, 05/29/19) JULIO SPENCE DO Jun 17, 2019 09:29
[2019-06-17 18:32] VITALS: BP 117/67
[2019-06-17] MEDS: NORTRIPTYLINE 25 MG CAP PO SCH (20:49)
[2019-06-17] MEDS: DIVALPROEX 250 MG TAB PO SCH (20:49)
[2019-06-17] MEDS: OLANZapine 10 MG TAB PO SCH (20:50)
[2019-06-17] MEDS: TRIHEXYPHENIDYL 2 MG TAB PO SCH (20:50)
[2019-06-17] MEDS: traZODone 50 MG TAB PO PRN (20:50)
[2019-06-17] MEDS: cloNIDine 0.1 MG TAB PO SCH (20:50)
[2019-06-18] MEDS: LEVOTHYROXINE 75MCG TABLET (0.075MG) PO SCH (06:05)
[2019-06-18 07:02] VITALS: BP 111/69
[2019-06-18] MEDS: BREXPIPRAZOLE 0.5MG TABLET (REXULTI) PO SCH (08:49)
[2019-06-18] MEDS: clonazePAM 0.5 MG TAB PO SCH ×2 (08:49→20:05)
[2019-06-18] MEDS: PANTOPRAZOLE 40MG TAB (PROTONIX) PO SCH (08:50)
[2019-06-18] MEDS: DIVALPROEX 500 MG TAB PO SCH ×2 (08:50→15:47)
[2019-06-18] MEDS: cloZAPine 100 MG TAB (S0136) PO SCH ×2 (08:50→20:06)
[2019-06-18] MEDS: DOCUSATE SODIUM 100 MG CAP PO SCH ×2 (08:50→20:04)
[2019-06-18] MEDS: MULTIVITAMINS/MINERALS THERAP 1 TAB PO SCH (08:50)
[2019-06-18] MEDS: ASPIRIN 81 MG CHEW TABLET PO SCH (08:50)
[2019-06-18] MEDS: TAMSULOSIN 0.4 MG CAP PO SCH (08:50)
[2019-06-18] MEDS: TIOTROPIUM INHALER/CAPSULE (SPIRIVA) INH SCH (08:50)
[2019-06-18] MEDS: MIRALAX *UNIT DOSE* 17GM PACKET PO SCH (09:00)
[2019-06-18] MEDS: NICOTINE POLACRILEX 2 MG GUM PO PRN (14:27)
[2019-06-18 18:34] VITALS: BP 116/66
[2019-06-18] MEDS: OLANZapine 10 MG TAB PO SCH (20:04)
[2019-06-18] MEDS: traZODone 50 MG TAB PO PRN (20:04)
[2019-06-18] MEDS: DIVALPROEX 250 MG TAB PO SCH (20:04)
[2019-06-18] MEDS: cloNIDine 0.1 MG TAB PO SCH (20:05)
[2019-06-18] MEDS: NORTRIPTYLINE 25 MG CAP PO SCH (20:05)
[2019-06-18] MEDS: TRIHEXYPHENIDYL 2 MG TAB PO SCH (20:06)
[2019-06-19] MEDS: LEVOTHYROXINE 75MCG TABLET (0.075MG) PO SCH (06:02)
[2019-06-19 07:02] VITALS: BP 120/81
[2019-06-19] MEDS: TAMSULOSIN 0.4 MG CAP PO SCH (08:05)
[2019-06-19] MEDS: PANTOPRAZOLE 40MG TAB (PROTONIX) PO SCH (08:05)
[2019-06-19] MEDS: DOCUSATE SODIUM 100 MG CAP PO SCH ×2 (08:05→20:09)
[2019-06-19] MEDS: ASPIRIN 81 MG CHEW TABLET PO SCH (08:05)
[2019-06-19] MEDS: TIOTROPIUM INHALER/CAPSULE (SPIRIVA) INH SCH (08:05)
[2019-06-19] MEDS: MULTIVITAMINS/MINERALS THERAP 1 TAB PO SCH (08:05)
[2019-06-19] MEDS: DIVALPROEX 500 MG TAB PO SCH ×2 (08:05→15:20)
[2019-06-19] MEDS: clonazePAM 0.5 MG TAB PO SCH ×2 (08:05→20:09)
[2019-06-19] MEDS: NICOTINE POLACRILEX 2 MG GUM PO PRN ×5 (08:05→20:08)
[2019-06-19] MEDS: MIRALAX *UNIT DOSE* 17GM PACKET PO SCH (08:06)
[2019-06-19] MEDS: cloZAPine 100 MG TAB (S0136) PO SCH ×2 (08:06→20:11)
[2019-06-19] MEDS: BREXPIPRAZOLE 0.5MG TABLET (REXULTI) PO SCH (08:06)
--- NOTE | 2019-06-19 10:21 | MHIPNPDOC ---
[facility] Progress Note Progress Note DATE OF SERVICE: 06/19/19 HISTORY: Per Dr. Lyle jones note: "This is one of multiple hospitalizations for this 59-year-old man with a history of schizoaffective disorder and a resident of [facility] ([facility]). THe patient informed the staff at [facility] that he wanted to cut himself and he wanted to kill himself. The patient had just been discharged from [facility] inpatient mental health unit about 2 weeks ago. He actually shows me what appeared to be significant cuts on his left forearm where he apparently cut and required 23 sutures prior to that hospitalization 2 weeks ago and that was a suicidal attempt. Of note, there are significant older cuts from prior serious attempts. The patient says today that he has been having suicidal thoughts. He is afraid that he will act on these thoughts. Today he tells me that he is not having those thoughts. He says that he is feeling very depressed. He mentions the of his mother. Upon hospitalization, the patient had specific plans of cutting his groin area and inner thigh so that he could just "bleed out." The patient has a diagnosis of schizoaffective disorder and he says that he always hears voices but they are not command type or as disturbing anymore with his current medications." VITAL SIGNS: See below. NEW TEST RESULTS: 05/31/19: ANC 3,942.8 wnl, TSH 7.33, 06/13/29 Depakote level 72.9 (therapeutic), thyroid panel wnl, TSH 3.000 CURRENT MEDICATIONS: See below. MENTAL STATUS EXAMINATION: This patient is alert and oriented times three. He is casually dressed in his own clothing and clean. He is pleasant, cooperative, spontaneous. Eye contact is good. Mood is euthymic. Affect is less flat though but appropriate and interested with appropriate questions. He is more talkative with spontaneous speech today. He has denies auditory hallucinations. He denies suicidal ideations. He denies homicidal ideations. Concentration is good. Memory is intact. Insight and judgment fair. DIAGNOSES: 1.Schizoaffective disorder, bipolar type 2.Generalized anxiety disorder ASSESSMENT:Pt seen and states that his mood is "good" today as he's finding his nortriptyline and rexulti beneficial. Improved anxiety/worry with rexulti. Appears euthymic yet less flat. Denies SI though but appears to be spontaneous when he does have it. States he's tolerating his medications. States he slept well last night. He is social in the milieu this am sitting with his peers in the pt lounge and attending groups and finding them helpful. He is social in the milieu daily. He denies SI/HI, hallucinations, delusions. Pt feels safe here. No change from yesterday and is overall improving psychiatrically. MANAGEMENT PLAN: continue plan. nortriptyline 100 mg qhs clozapine 200 mg twice a day Depakote 500mg qam and 750 mg at night Zyprexa 10 mg at night Klonopin 0.5 mg twice a day clonidine 0.1 mg at night Artane 5 mg at night. Rexulti 1mg daily TIME SPENT: 30 minutes. Vital Signs Vital Signs Date Time Temp Pulse Resp B/P (MAP) Pulse Ox O2 Delivery O2 Flow Rate FiO2 06/19/19 07:02 97.8 82 16 120/81 (94) 06/18/19 08:24 Room Air 06/13/19 18:13 94 Current Medications Current Medications Medications (Trade) Dose Ordered Sig/Billy Route PRN Reason Start Time Stop Time Status Last Admin Dose Admin Acetaminophen (Tylenol Tab) 650 mg Q6HP PRN PO HEADACHE or DISCOMFORT 06/10/19 22:00 06/19/19 08:57 Al Hydrox/Mg Hydrox/Simethicone (Mylanta) 30 ml Q4HP PRN PO HEARTBURN/INDIGESTION 06/10/19 22:00 Aspirin (Aspirin Chewable) 81 mg DAILY PO 06/11/19 09:00 06/19/19 08:05 Brexpiprazole (Rexulti) 1 mg DAILY PO 06/14/19 09:00 06/19/19 08:06 Clonazepam (KlonoPIN) 0.5 mg BID PO 06/10/19 21:00 06/19/19 08:05 Clonidine HCl (Catapres) 0.1 mg QHS PO 06/10/19 21:00 06/18/19 20:05 Clozapine (Clozaril) 200 mg BID PO 06/10/19 21:00 06/19/19 08:06 Divalproex Sodium (Depakote) 250 mg QHS PO 06/10/19 21:00 06/18/19 20:04 Divalproex Sodium (Depakote) 500 mg DAILY@0900,1600 PO 06/11/19 09:00 06/19/19 08:05 Docusate Sodium (Colace) 100 mg DAILY PO 06/11/19 09:00 06/19/19 08:05 Docusate Sodium (Colace) 200 mg QHS PO 06/10/19 21:00 06/18/19 20:04 Home Med (Med Rec Complete!) ASDIRECTED XX 06/10/19 21:45 06/10/19 21:52 DC Levothyroxine Sodium (Synthroid) 75 mcg DAILY@0600 PO 06/11/19 06:00 06/19/19 06:02 Magnesium Hydroxide (Milk Of Magnesia) 30 ml DAILYPRN PRN PO CONSTIPATION 06/10/19 22:00 Miscellaneous (Unresolved Clarification Entry) SEE LABEL COMMENTS DAILY XX 06/17/19 09:00 06/17/19 09:00 DC Miscellaneous (Unresolved Clarification Entry) SEE LABEL COMMENTS DAILY XX 06/17/19 09:00 06/17/19 16:37 DC Multivitamins (Theragram-M) 1 tab DAILY PO 06/11/19 09:00 06/19/19 08:05 Nicotine (Nicorette) 2 mg Q2HP PRN PO NICOTINE WITHDRAWAL 06/11/19 12:00 06/19/19 08:05 Nortriptyline HCl (Pamelor) 50 mg QHS PO 06/10/19 21:00 06/11/19 14:52 DC 06/11/19 00:01 Nortriptyline HCl (Pamelor) 75 mg QHS PO 06/11/19 21:00 06/16/19 10:49 DC 06/15/19 20:09 Nortriptyline HCl (Pamelor) 100 mg QHS PO 06/16/19 21:00 06/18/19 20:05 Olanzapine (ZyPREXA) 10 mg QHS PO 06/13/19 21:00 06/18/19 20:04 Olanzapine (ZyPREXA) 15 mg QHS PO 06/10/19 21:00 06/13/19 09:22 DC 06/12/19 20:30 Pantoprazole Sodium (Protonix) 40 mg DAILY PO 06/11/19 09:00 06/19/19 08:05 Polyethylene Glycol (Miralax) 1 pkt DAILY PO 06/11/19 09:00 06/19/19 08:06 Tamsulosin HCl (Flomax) 0.4 mg DAILY PO 06/11/19 09:00 06/19/19 08:05 Tiotropium [place] (Spiriva Handihaler) 1 inhalation DAILY@0800 INH 06/11/19 08:00 06/19/19 08:05 Trazodone HCl (Desyrel) 50 mg QHSP PRN PO INSOMNIA 06/10/19 22:00 06/18/19 20:04 Trihexyphenidyl HCl (Artane) 5 mg QHS PO 06/10/19 21:00 06/18/19 20:06 Allergies Coded Allergies: haloperidol (Verified Adverse Reaction, Severe, EPS, Difficulty Breathing, 05/29/19) loxapine (Verified Adverse Reaction, Severe, Tounge protrsion, diff breathing, 05/29/19) lithium (Verified Adverse Reaction, Intermediate, speech problems, 05/29/19) JULIO SPENCE DO Jun 19, 2019 10:21
[2019-06-19 18:24] VITALS: BP 115/62
[2019-06-19] MEDS: traZODone 50 MG TAB PO PRN (20:09)
[2019-06-19] MEDS: DIVALPROEX 250 MG TAB PO SCH (20:09)
[2019-06-19] MEDS: OLANZapine 10 MG TAB PO SCH (20:09)
[2019-06-19 20:10] VITALS: BP 114/76
[2019-06-19] MEDS: NORTRIPTYLINE 25 MG CAP PO SCH (20:10)
[2019-06-19] MEDS: cloNIDine 0.1 MG TAB PO SCH (20:10)
[2019-06-19] MEDS: TRIHEXYPHENIDYL 2 MG TAB PO SCH (20:11)
[2019-06-20] MEDS: LEVOTHYROXINE 75MCG TABLET (0.075MG) PO SCH (06:01)
[2019-06-20 06:49] VITALS: BP 94/70
[2019-06-20] MEDS: TIOTROPIUM INHALER/CAPSULE (SPIRIVA) INH SCH (07:42)
[2019-06-20] MEDS: NICOTINE POLACRILEX 2 MG GUM PO PRN (08:17)
[2019-06-20] MEDS: MULTIVITAMINS/MINERALS THERAP 1 TAB PO SCH (08:18)
[2019-06-20] MEDS: DIVALPROEX 500 MG TAB PO SCH (08:18)
[2019-06-20] MEDS: BREXPIPRAZOLE 0.5MG TABLET (REXULTI) PO SCH (08:18)
[2019-06-20] MEDS: DOCUSATE SODIUM 100 MG CAP PO SCH (08:18)
[2019-06-20] MEDS: ASPIRIN 81 MG CHEW TABLET PO SCH (08:18)
[2019-06-20] MEDS: cloZAPine 100 MG TAB (S0136) PO SCH (08:18)
[2019-06-20] MEDS: MIRALAX *UNIT DOSE* 17GM PACKET PO SCH (08:18)
[2019-06-20] MEDS: clonazePAM 0.5 MG TAB PO SCH (08:18)
[2019-06-20] MEDS: TAMSULOSIN 0.4 MG CAP PO SCH (08:18)
[2019-06-20] MEDS: PANTOPRAZOLE 40MG TAB (PROTONIX) PO SCH (08:18)
[2019-06-20] MEDS ORDERED: REXU1TAB2 PO (09:12)
[2019-06-20] MEDS ORDERED: NORT25CA2 PO (09:12)
--- NOTE | 2019-06-20 09:13 | MHDSPDOC ---
[facility] Discharge Summary Discharge Summary DATE OF ADMISSION: Jun 10, 2019 at 21:50 DATE OF DISCHARGE: Jun 20, 2019 DISCHARGE DIAGNOSES: Schizoaffective disorder, bipolar type generalized anxiety disorder history of polysubstance dependence in term remission REASON FOR ADMISSION: Per Dr. Alvarenga admit note: "This is one of multiple hospitalizations for this 59-year-old man with a history of schizoaffective disorder and a resident of [facility] ([facility]). THe patient informed the staff at [facility] that he wanted to cut himself and he wanted to kill himself. The patient had just been discharged from [facility] inpatient mental health unit about 2 weeks ago. He actually shows me what appeared to be significant cuts on his left forearm where he apparently cut and required 23 sutures prior to that hospitalization 2 weeks ago and that was a suicidal attempt. Of note, there are significant older cuts from prior serious attempts. The patient says today that he has been having suicidal thoughts. He is afraid that he will act on these thoughts. Today he tells me that he is not having those thoughts. He says that he is feeling very depressed. He mentions the of his mother. Upon hospitalization, the patient had specific plans of cutting his groin area and inner thigh so that he could just "bleed out." The patient has a diagnosis of schizoaffective disorder and he says that he always hears voices but they are not command type or as disturbing anymore with his current medications." TEST RESULTS: 05/31/19: ANC 3,942.8 wnl, TSH 7.33, 06/13/29 Depakote level 72.9 (therapeutic), thyroid panel wnl, TSH 3.000 CONSULTANTS INVOLVED: medical TREATMENT AND PROGRESS ON THE UNIT :Pt was admitted to [facility], seen for psychiatric assessment and restarted on his outpatient medication and is outpatient nortriptyline was increased to 100mg qhs for mood and rexulti 0.5mg daily for mood/worry. Pt stated he found nortriptyline and rexulti very beneficial for his mood in conjunction with the rest of his psychotropic medication. Pt found his medications beneficial and tolerated them well. HIs mood appeared euthymic and full range. He attended groups daily during his stay. His symptoms improved greatly with treatment. On day of discharge he denied depression, anxiety, insomnia, SI/HI, hallucinations, delusions. He was discharged home with [facility] with follow-up at [facility]. He felt safe for discharge. DISCHARGE ASSESSMENT: Pt seen and states that his mood is good today and he denies thoughts of suicide since he was started on rexulti and nortriptyline was increased. States his looking forward to going home to [facility] today. He does appear to have improved range and is euthymic. He is active on the unit and the milieu, socializing and playing games with peer pt's. Denies SI and thoughts to harm self. States he slept well last night. Feels he is tolerating his medications and states they are all beneficial. He is attending groups and finding them helpful. He denies depression, anxiety, insomnia, SI/HI, hallucinations, delusions. Pt feels safe to be discharged home to [facility]. MENTAL STATUS EXAMINATION ON DISCHARGE: This patient is alert and oriented times three. He is casually dressed in his own clothing and clean. He is pleasant, cooperative, spontaneous. Eye contact is good. Mood is euthymic. Affect is more full and appropriate and interested with appropriate questions. He is talkative with spontaneous speech today. He has denies auditory hallucinations. He denies suicidal ideations. He denies homicidal ideations. Concentration is good. Memory is intact. Insight and judgment fair-good. MEDICATIONS ON DISCHARGE: nortriptyline 100 mg qhs clozapine 200 mg twice a day Depakote 500mg qam and 750 mg at night Zyprexa 10 mg at night Klonopin 0.5 mg twice a day clonidine 0.1 mg at night Artane 5 mg at night. Rexulti 0.5mg daily PLAN/FOLLOWUP ARRANGEMENTS: D/c home back to [facility] residential with follow-up at [facility]. The amount of time spent in the coordination of care for this patient was approximately 30 minutes. Vital Signs/I&Os Vital Signs Date Time Temp Pulse Resp B/P (MAP) Pulse Ox O2 Delivery O2 Flow Rate FiO2 06/20/19 06:49 96.5 96 12 94/70 (78) 06/18/19 08:24 Room Air Medications Scheduled Aspirin (Aspirin EC) 81 Mg Tablet.dr, 81 MG PO DAILY, (Reported) Clonazepam (Clonazepam) 0.5 Mg Tablet, 0.5 MG PO BID, (Reported) Clonidine Hcl (Clonidine HCl) 0.1 Mg Tablet, 0.1 MG PO QHS, (Reported) Clozapine (Clozapine) 200 Mg Tablet, 200 MG PO BID, (Reported) Divalproex Sodium (Depakote) 250 Mg Tablet.dr, 250 MG PO QHS, (Reported) Divalproex Sodium (Depakote) 500 Mg Tablet.dr, 500 MG PO BID, (Reported) IN THE MORNING AND IN THE AFTERNOON Docusate Sodium (Docusate Sodium) 100 Mg Capsule, 100 MG PO DAILY, (Reported) Docusate Sodium (Docusate Sodium) 100 Mg Capsule, 200 MG PO QHS, (Reported) Levothyroxine Sodium (Synthroid) 75 Mcg Tablet, 75 MCG PO DAILY, (Reported) Multivitamins (Thera M Plus Tablet) 1 Each Tablet, 1 TAB PO DAILY, (Reported) Nortriptyline HCl (Nortriptyline HCl) 25 Mg Capsule, 50 MG PO QHS, (Reported) Olanzapine (Olanzapine) 15 Mg Tablet, 15 MG PO QHS, (Reported) Pantoprazole Sodium (Pantoprazole Sodium) 40 Mg Tablet.dr, 40 MG PO DAILY, (Reported) Tamsulosin HCl (Flomax) 0.4 Mg Capsule, 0.4 MG PO DAILY, (Reported) Tiotropium [place] (Spiriva) 18 Mcg Cap.w.dev, 1 PUFF INH DAILY, (Reported) Trihexyphenidyl HCl (Trihexyphenidyl HCl) 5 Mg Tablet, 5 MG PO QHS, (Reported) Scheduled PRN Polyethylene Glycol 3350 (Miralax) 17 Gm Powd.pack, 17 GM PO DAILY PRN for CONSTIPATION, (Reported) Allergies Coded Allergies: haloperidol (Verified Adverse Reaction, Severe, EPS, Difficulty Breathing, 05/29/19) loxapine (Verified Adverse Reaction, Severe, Tounge protrsion, diff breathing, 05/29/19) lithium (Verified Adverse Reaction, Intermediate, speech problems, 05/29/19) JULIO SPENCE DO Jun 20, 2019 09:13
== END 2019-06-20 10:00 | disposition home or self-care (01) | DRG 885 ==
LOC: M ED 19:04 → M ED INP 21:50 → M PSY 23:13
PROVIDERS: ADMIT Psychiatry & Neurology Psychiatry; ATTEND Psychiatry & Neurology Psychiatry
DX: F25.0 Schizoaffective disorder, bipolar type (principal); F41.1 Generalized anxiety disorder; E03.9 Hypothyroidism, unspecified; I10 Essential (primary) hypertension; E78.00 Pure hypercholesterolemia, unspecified; F19.21 Other psychoactive substance dependence, in remission; F17.210 Nicotine dependence, cigarettes, uncomplicated; K21.9 Gastro-esophageal reflux disease without esophagitis; N40.0 Benign prostatic hyperplasia without lower urinary tract symptoms; Z91.5 Personal history of self-harm; Z81.8 Family history of other mental and behavioral disorders; Z88.8 Allergy status to other drugs, medicaments and biological substances; Z79.82 Long term (current) use of aspirin; Z79.899 Other long term (current) drug therapy

== ENCOUNTER 2019-06-26 14:16 | Inpatient (IN) | payer MEDICARE, MEDICAID ==
[~2019-06-26] VITALS: Ht 177.8 cm; Wt 80.7 kg
[~2019-06-26 14:16] MED LIST changes: +CLON0.5T2 PO; -CLON0.5T8 PO; +CLONI1TA PO; +DEPA1TAB3 PO; +DEPA250T32 PO; +REXU1TAB2 PO
[2019-06-26] MEDS ORDERED: NEUR100C PO (15:06)
[2019-06-26 15:30] LABS: HEMATOCRIT 39.3 % (42.0-52.0); MEAN CORPUSCULAR HEMOGLOBIN 31.8 pg (27.0-33.0); MEAN CORPUSCULAR HGB CONC 33.1 g/dl (32.0-36.5); MEAN CORPUSCULAR VOLUME 96.1 fl (80.0-96.0); PLATELET COUNT, AUTOMATED 155 10^3/uL (150-450); RED BLOOD COUNT 4.09 10^6/uL (4.30-6.10); WHITE BLOOD COUNT 8.8 10^3/uL (4.0-10.0)
[2019-06-26 16:00] LABS: AMPHETAMINES LEVEL URINE NEGATIVE (NEGATIVE); BARBITURATES URINE NEGATIVE (NEGATIVE); BENZODIAZEPINES URINE NEGATIVE (NEGATIVE); CANNABINOIDS URINE NEGATIVE (NEGATIVE); COCAINE METABOLITE URINE NEGATIVE (NEGATIVE); METHADONE URINE NEGATIVE (NEGATIVE); OPIATES URINE NEGATIVE (NEGATIVE); PHENCYCLIDINE URINE NEGATIVE (NEGATIVE)
[2019-06-26 16:17] LABS: ACETAMINOPHEN LEVEL < 2.0 UG/ML (10.0-30.0); ALT/SGPT 29 U/L (12-78); BILIRUBIN,DIRECT < 0.1 MG/DL (0.0-0.2); BILIRUBIN,TOTAL 0.4 MG/DL (0.2-1.0); BLOOD UREA NITROGEN 17 MG/DL (7-18); CALCIUM LEVEL 8.9 MG/DL (8.5-10.1); CARBON DIOXIDE LEVEL 29 MEQ/L (21-32); CHLORIDE LEVEL 110 MEQ/L (98-107); CREATININE FOR GFR 1.08 MG/DL (0.70-1.30); ETHYL ALCOHOL (ETHANOL) < 0.003 % (0.000-0.010); GLOMERULAR FILTRATION RATE > 60.0 (>56); GLUCOSE, FASTING 96 MG/DL (70-100); POTASSIUM SERUM 4.5 MEQ/L (3.5-5.1); SALICYLATE LEVEL < 1.7 MG/DL (5.0-30.0); SODIUM LEVEL 143 MEQ/L (136-145); TOTAL PROTEIN 6.1 GM/DL (6.4-8.2); VALPROIC ACID (DEPAKOTE) 34.5 UG/ML (50.0-100.0)
[2019-06-26] MEDS ORDERED: clonazePAM 0.5 MG TAB PO ONE (18:00)
[2019-06-26] MEDS ORDERED: REXU1TAB3 PO (18:52)
[2019-06-26] MEDS ORDERED: NORT25CA2 PO (18:52)
[2019-06-26] MEDS ORDERED: IBUP80TA PO (18:54)
[2019-06-26] MEDS ORDERED: ACETAMINOPHEN TAB 650MG DOSE (2X325MG) PO PRN (19:30)
[2019-06-26] MEDS ORDERED: MOM 30ML SUSPENSION UDC PO PRN (19:30)
[2019-06-26] MEDS ORDERED: METAL LOCK LOOP XX ONE (21:27)
[2019-06-26 22:30] VITALS: BP 133/90
[2019-06-27 06:44] VITALS: BP 121/75
[2019-06-27] MEDS ORDERED: IBUPROFEN 800 MG TAB PO PRN (10:00)
--- NOTE | 2019-06-27 10:09 | HPEPDOC ---
General Date of Admission Jun 26, 2019 at 19:17 Date of Service: Jun 27, 2019 Attending Physician: KAMRON RUSSO MD Chief Complaint The patient is a 59-year-old male admitted with a reason for visit of Unspecified Psychotic D/O. History of Present Illness Edwin Avila is a 59 year old male, PMH significant for hypothyroidism, benign prostate hypertrophy, multiple inpatient psychiatric admissions, brought in by care home house personal on account of patient, stating he had not been feeling well with suicidal ideation for 3-5 days. He was recently discharged to [facility] of this month. On assessment, he complains of low back pain. He denies chest pain, shortness of breath, weakness, abdominal pain, nausea. He complains of constipation with last bowel movement 3 days ago Home Medications Scheduled Aspirin (Aspirin EC) 81 Mg Tablet.dr, 81 MG PO DAILY, (Reported) Brexpiprazole (Rexulti) 1 Mg Tablet, 1 MG PO DAILY, (Reported) Clonazepam (Clonazepam) 0.5 Mg Tablet, 0.5 MG PO BID, (Reported) Clonidine Hcl (Clonidine HCl) 0.1 Mg Tablet, 0.1 MG PO QHS, (Reported) Clozapine (Clozapine) 200 Mg Tablet, 200 MG PO BID, (Reported) Divalproex Sodium (Depakote) 250 Mg Tablet.dr, 250 MG PO QHS, (Reported) Divalproex Sodium (Depakote) 500 Mg Tablet.dr, 500 MG PO BID, (Reported) IN THE MORNING AND IN THE AFTERNOON Gabapentin (Neurontin) 100 Mg Capsule, 100 MG PO QHS, (Reported) Levothyroxine Sodium (Synthroid) 75 Mcg Tablet, 75 MCG PO DAILY, (Reported) Multivitamins (Thera M Plus Tablet) 1 Each Tablet, 1 TAB PO DAILY, (Reported) Nortriptyline HCl (Nortriptyline HCl) 25 Mg Capsule, 100 MG PO QHS, (Reported) Olanzapine (Olanzapine) 15 Mg Tablet, 15 MG PO QHS, (Reported) Pantoprazole Sodium (Pantoprazole Sodium) 40 Mg Tablet.dr, 40 MG PO DAILY, (Reported) Tamsulosin HCl (Flomax) 0.4 Mg Capsule, 0.4 MG PO DAILY, (Reported) Tiotropium [place] (Spiriva) 18 Mcg Cap.w.dev, 1 PUFF INH DAILY, (Reported) Trihexyphenidyl HCl (Trihexyphenidyl HCl) 5 Mg Tablet, 5 MG PO DAILY, (Reported) Scheduled PRN Ibuprofen (Ibuprofen) 800 Mg Tablet, 800 MG PO BID PRN for PAIN, (Reported) Polyethylene Glycol 3350 (Miralax) 17 Gm Powd.pack, 17 GM PO DAILY PRN for CONSTIPATION, (Reported) Allergies Coded Allergies: haloperidol (Verified Adverse Reaction, Severe, EPS, Difficulty Breathing, 05/29/19) loxapine (Verified Adverse Reaction, Severe, Tounge protrsion, diff breathing, 05/29/19) lithium (Verified Adverse Reaction, Intermediate, speech problems, 05/29/19) Past Medical History Medical History Hypothyroidism Benign prostate hypertrophy Bipolar disorder Anxiety disorder Nicotine dependence Surgical History Appendectomy Family History Mother: Colon cancer, congestive heart failure Social History Smokes a pipe, denies alcohol or polysubstance abuse A-FIB/CHADSVASC A-FIB History Current/History of A-Fib/PAF?: No Current PO Anticoag Therapy: No Review of Systems Other systems A pertinent 10 point review of systems is completed, negative except as stated in the history of presenting illness Physical Examination Other physical findings GENERAL: NAD SKIN : Warm, dry intact HEENT: Atraumatic, normocephalic, PERRL, moist mucous membrane CARDIOVASCULAR: Regular rate and rhythm, S1S2, no JVD, no edema, distal pulses + palpable RESP: CTAB, no accessory muscle use noted ABDOMEN: BS+ non distended non tender MS: no joint deformities NEURO: Alert and oriented x 3, straight leg raise positive for pain in the bilateral lumbar paraspinous area R>L PSYCH: no anxiety or agitation, appropriate mood and affect. Vital Signs Vital Signs Date Time Temp Pulse Resp B/P (MAP) Pulse Ox O2 Delivery O2 Flow Rate FiO2 06/27/19 09:03 Room Air 06/27/19 06:44 98.0 95 14 121/75 (90) 06/26/19 22:30 95 Laboratory Data Labs 24H Laboratory Tests 2 06/26/19 15:07: Nucleated Red Blood Cells % (auto) 0.0, Anion Gap 4L, Glomerular Filtration Rate > 60.0, Calcium Level 8.9, Aspartate Amino Transf (AST/SGOT) 16, Alanine Aminotransferase (ALT/SGPT) 29, Alkaline Phosphatase 64, Total Bilirubin 0.4, Direct Bilirubin < 0.1, Total Protein 6.1L, Albumin 3.0L, Albumin/Globulin Ratio 0.97L, Thyroid Stimulating Hormone (TSH) 3.190, Salicylates Level < 1.7L, Urine Amphetamines Screen NEGATIVE, Urine Benzodiazepines Screen NEGATIVE, Urine Opiates Screen NEGATIVE, Urine Methadone Screen NEGATIVE, Acetaminophen Level < 2.0L, Urine Barbiturates Screen NEGATIVE, Valproic Acid (Depakene) Level 34.5L, Urine Phencyclidine Screen NEGATIVE, Urine Cocaine Metabolite Screen NEGATIVE, Urine Cannabinoids Screen NEGATIVE, Ethyl Alcohol Level < 0.003 CBC/BMP Laboratory Tests 06/26/19 15:07 Red Blood Count 4.09 L, Mean Corpuscular Volume 96.1 H, Mean Corpuscular H emoglobin 31.8, Mean Corpuscular Hemoglobin Concent 33.1, Red Cell Distribution Width 13.1 Assessment/Plan Lumbar strain -With radicular symptoms -CT spine imaging without contrast to further evaluate -NSAIDs for pain management as needed Constipation -routine colace daily with holding parameters BPH -Flomax Hypothyroidism -synthroid 75mcg/daily Suicidal ideation -Resolution and management per primary team Plan / VTE VTE Prophylaxis Ordered?: No VTE Exclusion Mechanical Proph: Low Risk for VTE MALIK SOLOMON Jun 27, 2019 10:09
[2019-06-27] MEDS: TIOTROPIUM INHALER/CAPSULE (SPIRIVA) INH SCH (10:12)
[2019-06-27] MEDS: DOCUSATE SODIUM 100 MG CAP PO SCH ×2 (10:12→20:19)
[2019-06-27] MEDS: PANTOPRAZOLE 40MG TAB (PROTONIX) PO SCH (10:12)
[2019-06-27] MEDS: TAMSULOSIN 0.4 MG CAP PO SCH (10:12)
[2019-06-27] MEDS: LEVOTHYROXINE 75MCG TABLET (0.075MG) PO SCH (10:12)
--- NOTE | 2019-06-27 12:31 | MHHPEPDOC ---
General Date Of Admission: Jun 26, 2019 Legal Status: 9.39 Chief Complaint "I've been depressed" History of Present Illness HISTORY OF THE PRESENT ILLNESS: Patient is a 58 -year-old , male, with a history of schizoaffective d/o, multiple inpatient admits to psych, multiple SA by OD/cutting/hanging who was brought to ED by [facility] after he reported to staff he was feeling depressed and suicidal with plan to cut himself per ED. In ED pt continued to endorse depression with SI and plan to cut himself for 3 days, cause unknown, insistent on being admitted [facility] for treatment of would "bleed out." He denied HI, hallucinations, delusions in the ED. Psychiatric Review of Systems Depression (2 or more weeks): depressed mood, difficulty concentrating, suicidal thoughts Cassi (4 or more days of): denies Psychosis: denies PTSD: denies Anxiety: situational anxiety, stressor related anxiety Anxiety/ 6 months or more of: difficulty concentrating Past Psychiatric History Previous Psychiatric Diagnosis: schizoaffective d/o diagnosed at 18y/o Previous Psychiatric Admissions: multiple admissions [facility] in past with last 05/15 05/03 and 06/11/19 for depression,SI. Per records, over 100 psych admission in the past including [facility] in 2012 and cait Suicide Attempts: multiple suicide attempts: 3 by hanging, 10 by OD, by cutting self multiple times last 05/30 admit, and has put a gun to his head but not pulled trigger several times in past Psychiatric Follow-up: resides at [facility], med F/U at [facility] Psychiatric medications: Clozaril, clonidine, Zyprexa, trihexyphenidyl, depakote, klonopin, nortriptyline, rexulti Past Medical History Medical Problems Hypothyroidism, hypertension, hypercholesterolemia, reflux, and BPH. Head Injury: No Seizures: No Hospitalizations: No Surgeries: Yes (appendectomy) Family Medical/Psychiatric HX Medical Problems noncontributory Psychiatric Disorders: Yes (brother and father) Addiction: No Suicide Attemps/Completions: Yes (father completed suicide. Brother with severe mental illness who completed suicide via overdose October 2012. ) Addiction History nicotine (1ppd), alcohol (has not used in 18yrs, hx of DTs), cocaine (in past), opioids (pain pills in past), other (history of cannabis and LSD use, denies illicit substance use for over 20yrs, utox neg) Social History Childhood: born and raised in [place], 2 parent home, 4 siblings, good childhood Abuse/Trauma:denies Current Living Situation: lives in [place] at [facility] Education: GED Employment: has worked several jobs in the past including on at [employer], a [employer], [employer] and now receives [facility] Social Support: family, [facility] Legal: denies Marital: single, never , no kids Mental Status Examination General Appearance: well groomed, appears stated age, hospital scubs/clothing Build: average Demeanor: withdrawn Eye Contact: fair Activity: slowed Behavior: cooperative, withdrawn Speech: clear, low in volume, reg/rate,rhythm,volume Mood: depressed Mood "just down" Affect: constricted, flat, congruent Thought Process: concrete, depressed, slow Thought Content (Delusions): denies SI, HI, AVH Thought Content (Other): none reported Thought Content (Aggressive): none reported Perception (Hallucinations): none reported Perception (Other): none reported Cognition (Impairment of): ability to abstract Cognition(Intelligence Est.): average Oriented: Awake, Alert, Oriented times three Insight: fair Judgment: Fair Psychosis: Denies Diagnoses Schizoaffective disorder, bipolar type generalized anxiety disorder history of polysubstance dependence in term remission A-FIB/CHADSVASC A-FIB History Current/History of A-Fib/PAF?: No Current PO Anticoag Therapy: No Treatment Treatment ordered: NONE Reason Anticoagulant not given: Not indicated/[id number] Assessment Pt seen and states he feels bit better here but prior to coming was depressed with SI and plan to cut himself for 3 days and doesn't know why. States he's been compliant on his medications and feels they're beneficial, would like to restart here. Symptoms of depression possibly environmental as he appears to do well regarding his depression and SI here but when returns to [facility] residential after treatment appears to decompensate. Pt agrees but doesn't know exactly why he doesn't do as well at [facility] as he does here. He denies SI/HI, hallucinations, delusions today. Feels safe here. Appears depressed but is sitting in lounge with peers to try to socialize. Initial Treatment Plan 1. Patient was admitted on a 9.39 status. 2. Complete history was obtained. 3. With patients permission, family will be contacted and database will be expanded. 4. Patients medication regimen will be reviewed and changed accordingly. 5. Patient will be provided with protected environment. 6. Patient will be treated with individual, group, and milieu therapies. 7. Patient will receive supportive psych-education. 8. Discharge planning will commence immediately. 9. Outpatient follow-up treatment will be strongly recommended. 10. The initial treatment plan will focus initially on: * Depression. * Risk for suicide. * Substance abuse. 11. restart outpatient meds, get cbc with diff for anc ESTIMATED LENGTH OF STAY: 5-7 DAYS. TIME SPENT COUNSELING AND COORDINATING INITIAL CARE: 60 minutes. Vital Signs Vital Signs Date Time Temp Pulse Resp B/P (MAP) Pulse Ox O2 Delivery O2 Flow Rate FiO2 06/27/19 09:03 Room Air 06/27/19 06:44 98.0 95 14 121/75 (90) 06/26/19 22:30 95 Laboratory Data 24H Labs Laboratory Tests 2 06/26/19 15:07: Nucleated Red Blood Cells % (auto) 0.0, Anion Gap 4L, Glomerular Filtration Rate > 60.0, Calcium Level 8.9, Aspartate Amino Transf (AST/SGOT) 16, Alanine Ami notransferase (ALT/SGPT) 29, Alkaline Phosphatase 64, Total Bilirubin 0.4, Direct Bilirubin < 0.1, Total Protein 6.1L, Albumin 3.0L, Albumin/Globulin Ratio 0.97L, Thyroid Stimulating Hormone (TSH) 3.190, Salicylates Level < 1.7L, Urine Amphetamines Screen NEGATIVE, Urine Benzodiazepines Screen NEGATIVE, Urine Opiates Screen NEGATIVE, Urine Methadone Screen NEGATIVE, Acetaminophen Level < 2.0L, Urine Barbiturates Screen NEGATIVE, Valproic Acid (Depakene) Level 34.5L, Urine Phencyclidine Screen NEGATIVE, Urine Cocaine Metabolite Screen NEGATIVE, Urine Cannabinoids Screen NEGATIVE, Ethyl Alcohol Level < 0.003 CBC/BMP Laboratory Tests 06/26/19 15:07 Red Blood Count 4.09 L, Mean Corpuscular Volume 96.1 H, Mean Corpuscular Hemoglobin 31.8, Mean Corpuscular Hemoglobin Concent 33.1, Red Cell Distribution Width 13.1 Medications Scheduled Aspirin (Aspirin EC) 81 Mg Tablet.dr, 81 MG PO DAILY, (Reported) Brexpiprazole (Rexulti) 1 Mg Tablet, 1 MG PO DAILY, (Reported) Clonazepam (Clonazepam) 0.5 Mg Tablet, 0.5 MG PO BID, (Reported) Clonidine Hcl (Clonidine HCl) 0.1 Mg Tablet, 0.1 MG PO QHS, (Reported) Clozapine (Clozapine) 200 Mg Tablet, 200 MG PO BID, (Reported) Divalproex Sodium (Depakote) 250 Mg Tablet.dr, 250 MG PO QHS, (Reported) Divalproex Sodium (Depakote) 500 Mg Tablet.dr, 500 MG PO BID, (Reported) IN THE MORNING AND IN THE AFTERNOON Gabapentin (Neurontin) 100 Mg Capsule, 100 MG PO QHS, (Reported) Levothyroxine Sodium (Synthroid) 75 Mcg Tablet, 75 MCG PO DAILY, (Reported) Multivitamins (Thera M Plus Tablet) 1 Each Tablet, 1 TAB PO DAILY, (Reported) Nortriptyline HCl (Nortriptyline HCl) 25 Mg Capsule, 100 MG PO QHS, (Reported) Olanzapine (Olanzapine) 15 Mg Tablet, 15 MG PO QHS, (Reported) Pantoprazole Sodium (Pantoprazole Sodium) 40 Mg Tablet.dr, 40 MG PO DAILY, (Reported) Tamsulosin HCl (Flomax) 0.4 Mg Capsule, 0.4 MG PO DAILY, (Reported) Tiotropium Alpine (Spiriva) 18 Mcg Cap.w.dev, 1 PUFF INH DAILY, (Reported) Trihexyphenidyl HCl (Trihexyphenidyl HCl) 5 Mg Tablet, 5 MG PO DAILY, (Reported) Scheduled PRN Ibuprofen (Ibuprofen) 800 Mg Tablet, 800 MG PO BID PRN for PAIN, (Reported) Polyethylene Glycol 3350 (Miralax) 17 Gm Powd.pack, 17 GM PO DAILY PRN for CONSTIPATION, (Reported) Allergies Coded Allergies: haloperidol (Verified Adverse Reaction, Severe, EPS, Difficulty Breathing, 05/29/19) loxapine (Verified Adverse Reaction, Severe, Tounge protrsion, diff breathing, 05/29/19) lithium (Verified Adverse Reaction, Intermediate, speech problems, 05/29/19) JULIO SPENCE DO Jun 27, 2019 12:31 pm
[2019-06-27] MEDS: DIVALPROEX 500 MG TAB PO SCH ×2 (13:05→20:19)
[2019-06-27] MEDS: cloZAPine 100 MG TAB (S0136) PO SCH ×2 (13:05→20:17)
[2019-06-27] MEDS: MULTIVITAMINS/MINERALS THERAP 1 TAB PO SCH (13:05)
[2019-06-27] MEDS: CYCLOBENZAPRINE 5MG TABLET PO SCH ×2 (13:06→21:15)
[2019-06-27] MEDS: BREXPIPRAZOLE 0.5MG TABLET (REXULTI) PO SCH (13:06)
[2019-06-27 13:56] LABS: BASO # 0.1 10^3/uL (0.0-0.2); BASO % 0.5 % (0.0-1.0); EOS # 0.1 10^3/uL (0.0-0.50); EOS % 1.5 % (0.0-3.0); HEMATOCRIT 40.8 % (42.0-52.0); HEMOGLOBIN 13.6 g/dl (13.5-17.5); LYMPH # 3.5 10^3/uL (1.5-4.5); LYMPH % 37.4 % (24.0-44.0); MEAN CORPUSCULAR HEMOGLOBIN 32.2 pg (27.0-33.0); MEAN CORPUSCULAR HGB CONC 33.3 g/dl (32.0-36.5); MEAN CORPUSCULAR VOLUME 96.5 fl (80.0-96.0); MONO % 10.5 % (0.0-5.0); NEUTROPHILS # 4.6 10^3/uL (1.8-7.7); NEUTROPHILS % 49.6 % (36.0-66.0); PLATELET COUNT, AUTOMATED 170 10^3/uL (150-450); RED BLOOD COUNT 4.23 10^6/uL (4.30-6.10); WHITE BLOOD COUNT 9.3 10^3/uL (4.0-10.0)
[2019-06-27] MEDS: TRIHEXYPHENIDYL 2 MG TAB PO SCH (15:27)
--- NOTE | 2019-06-27 15:38 | REP ---
CT OF THE LUMBAR SPINE WITHOUT CONTRAST: REASON: Low back pain. COMPARISON: None. TECHNIQUE: Axial CT of the lumbar spine was performed without contrast with bone reformatted images within the axial, coronal and sagittal planes. FINDINGS: There is normal alignment with mild levocurvature of the lumbar spine. Vertebral body and disc space heights are maintained. The spinal canal is within normal limits. The paraspinal soft tissues are unremarkable. Evaluation of the spinal canal and neural foramina is limited on this examination. However, there are degenerative changes of the lower lumbar spine involving the L4-5 and L5-S1 levels with bilateral facet arthropathy. There is apparent disc bulging at L4-L5 and L5-S1. Note is made of atherosclerotic calcifications of the abdominal aorta and iliac arteries. There is mild soft tissue stranding of the retroperitoneum which is a nonspecific finding. There is a significant amount of fecal debris within the bowel. The sacroiliac joints are intact. IMPRESSION: 1. Lower lumbar spondylosis with bilateral facet arthropathy at L4-L5 and L5-S1. 2. No fracture or dislocation. 3. Mild levoscoliotic curvature which may be positional or related to muscle spasm. Electronically Signed by Emma Lyons MD 06/28/2019 11:04 A
[2019-06-27] MEDS: NICOTINE POLACRILEX 2 MG GUM PO PRN ×2 (17:08→20:20)
[2019-06-27 17:50] VITALS: BP 143/85
[2019-06-27 18:00] VITALS: BP 143/85
[2019-06-27] MEDS: cloNIDine 0.1 MG TAB PO SCH (20:17)
[2019-06-27] MEDS: NORTRIPTYLINE 25 MG CAP PO SCH (20:17)
[2019-06-27] MEDS: GABAPENTIN 100 MG CAP PO SCH (20:19)
[2019-06-27] MEDS: OLANZapine 5 MG TAB PO SCH (20:19)
[2019-06-27] MEDS: traZODone 50 MG TAB PO PRN (20:20)
[2019-06-27] MEDS: DIVALPROEX 250 MG TAB PO SCH (20:20)
[2019-06-28] MEDS: LEVOTHYROXINE 75MCG TABLET (0.075MG) PO SCH (06:11)
[2019-06-28] MEDS: CYCLOBENZAPRINE 5MG TABLET PO SCH ×3 (06:11→21:13)
[2019-06-28 06:49] VITALS: BP 125/78
[2019-06-28] MEDS: TAMSULOSIN 0.4 MG CAP PO SCH (08:44)
[2019-06-28] MEDS: TRIHEXYPHENIDYL 2 MG TAB PO SCH (08:44)
[2019-06-28] MEDS: TIOTROPIUM INHALER/CAPSULE (SPIRIVA) INH SCH (08:44)
[2019-06-28] MEDS: BREXPIPRAZOLE 0.5MG TABLET (REXULTI) PO SCH (08:45)
[2019-06-28] MEDS: DIVALPROEX 500 MG TAB PO SCH ×2 (08:45→20:10)
[2019-06-28] MEDS: cloZAPine 100 MG TAB (S0136) PO SCH ×2 (08:45→20:12)
[2019-06-28] MEDS: DOCUSATE SODIUM 100 MG CAP PO SCH ×2 (08:46→20:10)
[2019-06-28] MEDS: PANTOPRAZOLE 40MG TAB (PROTONIX) PO SCH (08:46)
[2019-06-28] MEDS: MULTIVITAMINS/MINERALS THERAP 1 TAB PO SCH (08:46)
[2019-06-28] MEDS: NICOTINE POLACRILEX 2 MG GUM PO PRN ×3 (08:46→20:09)
[2019-06-28] MEDS ORDERED: **PENDING PPD ENTRY XX SCH (09:00)
--- NOTE | 2019-06-28 11:44 | IPNPDOC ---
Text Note Date of Service The patient was seen on 06/28/19. NOTE Subjective: Back pain is improved, but still has significant difficulty with transitional movements and back pain. Had a huge bowel movement. Denies chills or fever, denies radicular symptoms, only complains of radiating pain to bilateral legs. Results of CT imaging study discussed. Objective GENERAL: NAD SKIN : Warm, dry intact HEENT: Atraumatic, normocephalic, PERRL, moist mucous membrane CARDIOVASCULAR: Regular rate and rhythm, S1S2, no JVD, no edema, distal pulses + palpable RESP: CTAB, no accessory muscle use noted ABDOMEN: BS+ non distended non tender MS: no joint deformities NEURO: Alert and oriented x 3, straight leg raise positive for pain in the bila teral lumbar paraspinous area R>L PSYCH: no anxiety or agitation, appropriate mood and affect. Assessment/Plan degenerative Disc Disease -CT spine abnormal for disc bulge at lumbosacral area -Findings discussed with patient -Consult physical therapy for evaluation and recommendations -Continue NSAIDs for pain management as needed Constipation -had a large hcel movement -continue colace BPH -Flomax Hypothyroidism -Synthroid 75mcg/daily Suicidal ideation -Resolution and management per primary team VS,Josy, I+O VS, Josy, I+O Laboratory Tests 06/27/19 13:27 Red Blood Count 4.23 L, Mean Corpuscular Volume 96.5 H, Mean Corpuscular Hemoglobin 32.2, Mean Corpuscular Hemoglobin Concent 33.3, Red Cell Distribution Width 13.2, Neutrophils (%) (Auto) 49.6, Lymphocytes (%) (Auto) 37.4, Monocytes (%) (Auto) 10.5 H, Eosinophils (%) (Auto) 1.5, Basophils (%) (Auto) 0.5, Neutrophils # (Auto) 4.6, Lymphocytes # (Auto) 3.5, Monocytes # (Auto) 1.0 H, Eosinophils # (Auto) 0.1, Basophils # (Auto) 0.1 Vital Signs Date Time Temp Pulse Resp B/P (MAP) Pulse Ox O2 Delivery O2 Flow Rate FiO2 06/28/19 08:15 Room Air 06/28/19 06:49 96.9 92 18 125/78 (94) 06/26/19 22:30 95 MALIK SOLOMON [facility] Jun 28, 2019 11:44
--- NOTE | 2019-06-28 12:32 | MHIPNPDOC ---
[facility] Progress Note Progress Note DATE OF SERVICE: 06/28/19 HISTORY: Pt seen and states he feels bit better here but prior to coming was depressed with SI and plan to cut himself for 3 days and doesn't know why. States he's been compliant on his medications and feels they're beneficial, would like to restart here. Symptoms of depression possibly environmental as he appears to do well regarding his depression and SI here but when returns to [facility] residential after treatment appears to decompensate. Pt agrees but doesn't know exactly why he doesn't do as well at [facility] as he does here. He denies SI/HI, hallucinations, delusions today. Feels safe here. Appears depressed but is sitting in lounge with peers to try to socialize. VITAL SIGNS: See below. NEW TEST RESULTS: ANC 4659.3 wnl CURRENT MEDICATIONS: See below. MENTAL STATUS EXAMINATION: General Appearance: well groomed, appears stated age, hospital scrubs/clothing Build: average Demeanor: withdrawn Eye Contact: fair Activity: slowed Behavior: cooperative, withdrawn Speech: clear, low in volume, reg/rate,rhythm,volume Mood: depressed Mood "just down" Affect: constricted, flat, congruent Thought Process: concrete, depressed, slow Thought Content (Delusions): denies SI, HI, AVH Thought Content (Other): none reported Thought Content (Aggressive): none reported Perception (Hallucinations): none reported Perception (Other): none reported Cognition (Impairment of): ability to abstract Cognition(Intelligence Est.): average Oriented: Awake, Alert, Oriented times three Insight: fair Judgment: Fair Psychosis: Denies DIAGNOSES: Schizoaffective disorder, bipolar type generalized anxiety disorder history of polysubstance dependence in term remission ASSESSMENT:Pt seen and states he feels "ok" here and continues to not be able to name anything that is going on at [facility] that is making him depressed and suicidal every time he returns after treatment and stabilization here. States he saw the medical doctor yesterday who recommended PT for his back pain and is very much l ooking forward to start. His back pain maybe facilitating his depression and is possibly treatment better here than [facility] which could be the difference. Will order PT to see pt. States he's been compliant on his medications and feels they're beneficial. Spoke with pt about referral to [facility] for intermediate project manager treatment and states he's looking forward to going there as he believes it is what he needs at this point. He denies SI/HI, hallucinations, delusions today. Feels safe here. Appears depressed but is up socializing with peers in the lounge and groups daily as he likes to. MANAGEMENT PLAN: monitor for safety. Refer to [facility] for intermediate project manager treatment due to decompensation each time d/c back to [facility] and high risk of suicide based on current symptoms and psychiatric/family history Medications: nortriptyline 100 mg qhs clozapine 200 mg twice a day Depakote 500mg qam and 750 mg at night Zyprexa 10 mg at night Klonopin 0.5 mg twice a day clonidine 0.1 mg at night Artane 5 mg at night. Rexulti 1mg daily TIME SPENT: 30 minutes. Vital Signs Vital Signs Date Time Temp Pulse Resp B/P (MAP) Pulse Ox O2 Delivery O2 Flow Rate FiO2 06/28/19 08:15 Room Air 06/28/19 06:49 96.9 92 18 125/78 (94) 06/26/19 22:30 95 Laboratory Data 24H Labs Laboratory Tests 2 06/27/19 13:27: Immature Granulocyte % (Auto) 0.5, White Blood Count 9.3, Red Blood Count 4.23L, Hemoglobin 13.6, Hematocrit 40.8L, Mean Corpuscular Volume 96.5H, Mean Corpuscular Hemoglobin 32.2, Mean Corpuscular Hemoglobin Concent 33.3, Red Cell Distribution Width 13.2, Platelet Count 170, Neutrophils (%) (Auto) 49.6, Lymphocytes (%) (Auto) 37.4, Monocytes (%) (Auto) 10.5H, Eosinophils (%) (Auto) 1.5, Basophils (%) (Auto) 0.5, Neutrophils # (Auto) 4.6, Lymphocytes # (Auto) 3.5, Monocytes # (Auto) 1.0H, Eosinophils # (Auto) 0.1, Basophils # (Auto) 0.1, Nucleated Red Blood Cells % (auto) 0.0 CBC/BMP Laboratory Tests 06/27/19 13:27 Red Blood Count 4.23 L, Mean Corpuscular Volume 96.5 H, Mean Corpuscular Hemoglobin 32.2, Mean Corpuscular Hemoglobin Concent 33.3, Red Cell Distribution Width 13.2, Neutrophils (%) (Auto) 49.6, Lymphocytes (%) (Auto) 37.4, Monocytes (%) (Auto) 10.5 H, Eosinophils (%) (Auto) 1.5, Basophils (%) (Auto) 0.5, Neutrophils # (Auto) 4.6, Lymphocytes # (Auto) 3.5, Monocytes # (Auto) 1.0 H, Eosinophils # (Auto) 0.1, Basophils # (Auto) 0.1 Current Medications Current Medications Medications (Trade) Dose Ordered Sig/Billy Route PRN Reason Start Time Stop Time Status Last Admin Dose Admin Acetaminophen (Tylenol Tab) 650 mg Q6HP PRN PO HEADACHE or DISCOMFORT 06/26/19 19:30 Al Hydrox/Mg Hydrox/Simethicone (Mylanta) 30 ml Q4HP PRN PO HEARTBURN/INDIGESTION 06/26/19 19:30 Brexpiprazole (Rexulti) 1 mg DAILY PO 06/27/19 09:00 06/28/19 08:45 Clonidine HCl (Catapres) 0.1 mg QHS PO 06/27/19 21:00 06/27/19 20:17 Clozapine (Clozaril) 200 mg BID PO 06/27/19 09:00 06/28/19 08:45 Cyclobenzaprine HCl (Flexeril) 5 mg Q8H PO 06/27/19 14:00 06/28/19 06:11 Divalproex Sodium (Depakote) 250 mg QHS PO 06/27/19 21:00 06/27/19 20:20 Divalproex Sodium (Depakote) 500 mg BID PO 06/27/19 09:00 06/28/19 08:45 Docusate Sodium (Colace) 100 mg BID PO 06/27/19 09:00 06/28/19 08:46 Gabapentin (Neurontin) 100 mg QHS PO 06/27/19 21:00 06/27/19 20:19 Home Med (Med Rec Complete!) ASDIRECTED XX 06/26/19 19:00 06/26/19 19:00 DC Ibuprofen (Advil) 800 mg BID PRN PO PAIN 06/27/19 10:00 06/28/19 08:45 Levothyroxine Sodium (Synthroid) 75 mcg DAILY@0600 PO 06/27/19 06:00 06/28/19 06:11 Magnesium Hydroxide (Milk Of Magnesia) 30 ml DAILYPRN PRN PO CONSTIPATION 06/26/19 19:30 Multivitamins (Theragram-M) 1 tab DAILY PO 06/27/19 09:00 06/28/19 08:46 Nicotine (Nicorette) 2 mg Q2HP PRN PO NICOTINE WITHDRAWAL 06/27/19 17:00 06/28/19 08:46 Nortriptyline HCl (Pamelor) 100 mg QHS PO 06/27/19 21:00 06/27/19 20:17 Olanzapine (ZyPREXA) 15 mg QHS PO 06/27/19 21:00 06/27/19 20:19 Pantoprazole Sodium (Protonix) 40 mg DAILY PO 06/27/19 09:00 06/28/19 08:46 Tamsulosin HCl (Flomax) 0.4 mg DAILY PO 06/27/19 09:00 06/28/19 08:44 Tiotropium [place] (Spiriva Handihaler) 1 inhalation DAILY@0800 INH 06/27/19 08:00 06/28/19 08:44 Trazodone HCl (Desyrel) 50 mg QHSP PRN PO INSOMNIA 06/26/19 19:30 06/27/19 20:20 Trihexyphenidyl HCl (Artane) 5 mg DAILY PO 06/27/19 09:00 06/28/19 08:44 Allergies Coded Allergies: haloperidol (Verified Adverse Reaction, Severe, EPS, Difficulty Breathing, 05/29/19) loxapine (Verified Adverse Reaction, Severe, Tounge protrsion, diff breathing, 05/29/19) lithium (Verified Adverse Reaction, Intermediate, speech problems, 05/29/19) JULIO SPENCE DO Jun 28, 2019 12:32
[2019-06-28] MEDS ORDERED: TUBERCULIN PPD 5 UNITS/0.1 ML ID ONE ×2 (13:15→15:00)
[2019-06-28 18:00] VITALS: BP 109/77
[2019-06-28] MEDS: DIVALPROEX 250 MG TAB PO SCH (20:09)
[2019-06-28] MEDS: cloNIDine 0.1 MG TAB PO SCH (20:10)
[2019-06-28] MEDS: GABAPENTIN 100 MG CAP PO SCH (20:11)
[2019-06-28] MEDS: OLANZapine 5 MG TAB PO SCH (20:11)
[2019-06-28] MEDS: NORTRIPTYLINE 25 MG CAP PO SCH (20:12)
[2019-06-28] MEDS: traZODone 50 MG TAB PO PRN (21:12)
[2019-06-29] MEDS: LEVOTHYROXINE 75MCG TABLET (0.075MG) PO SCH (06:00)
[2019-06-29] MEDS: CYCLOBENZAPRINE 5MG TABLET PO SCH ×3 (06:00→21:16)
[2019-06-29 06:38] VITALS: BP 115/72
[2019-06-29 07:59] LABS: ALBUMIN 3.1 GM/DL (3.2-5.2); ALT/SGPT 35 U/L (12-78); BILIRUBIN,TOTAL 0.1 MG/DL (0.2-1.0); BLOOD UREA NITROGEN 15 MG/DL (7-18); CALCIUM LEVEL 9.2 MG/DL (8.5-10.1); CARBON DIOXIDE LEVEL 29 MEQ/L (21-32); CHLORIDE LEVEL 111 MEQ/L (98-107); CREATININE FOR GFR 1.11 MG/DL (0.70-1.30); GLOMERULAR FILTRATION RATE > 60.0 (>56); GLUCOSE, FASTING 86 MG/DL (70-100); MAGNESIUM LEVEL 2.1 MG/DL (1.8-2.4); POTASSIUM SERUM 4.3 MEQ/L (3.5-5.1); SODIUM LEVEL 144 MEQ/L (136-145); TOTAL PROTEIN 6.9 GM/DL (6.4-8.2)
[2019-06-29] MEDS: DIVALPROEX 500 MG TAB PO SCH ×2 (08:15→20:19)
[2019-06-29] MEDS: DOCUSATE SODIUM 100 MG CAP PO SCH ×2 (08:15→20:19)
[2019-06-29] MEDS: MULTIVITAMINS/MINERALS THERAP 1 TAB PO SCH (08:15)
[2019-06-29] MEDS: PANTOPRAZOLE 40MG TAB (PROTONIX) PO SCH (08:15)
[2019-06-29] MEDS: TAMSULOSIN 0.4 MG CAP PO SCH (08:15)
[2019-06-29] MEDS: cloZAPine 100 MG TAB (S0136) PO SCH ×2 (08:16→20:19)
[2019-06-29] MEDS: BREXPIPRAZOLE 0.5MG TABLET (REXULTI) PO SCH (08:16)
[2019-06-29] MEDS: TIOTROPIUM INHALER/CAPSULE (SPIRIVA) INH SCH (08:16)
[2019-06-29] MEDS: TRIHEXYPHENIDYL 2 MG TAB PO SCH (08:17)
[2019-06-29 08:18] LABS: HEMATOCRIT 43.2 % (42.0-52.0); HEMOGLOBIN 14.2 g/dl (13.5-17.5); MEAN CORPUSCULAR HEMOGLOBIN 31.8 pg (27.0-33.0); MEAN CORPUSCULAR HGB CONC 32.9 g/dl (32.0-36.5); MEAN CORPUSCULAR VOLUME 96.6 fl (80.0-96.0); PLATELET COUNT, AUTOMATED 185 10^3/uL (150-450); RED BLOOD COUNT 4.47 10^6/uL (4.30-6.10); WHITE BLOOD COUNT 9.4 10^3/uL (4.0-10.0)
[2019-06-29] MEDS: NICOTINE POLACRILEX 2 MG GUM PO PRN ×2 (08:18→20:23)
--- NOTE | 2019-06-29 09:23 | MHIPNPDOC ---
[facility] Progress Note Progress Note DATE OF SERVICE: 06/29/19 HISTORY: Patient is a 58 -year-old , male, with a history of schizoaffective d/o, multiple inpatient admits to [facility], multiple SA by OD/cutting/hanging who was brought to ED by [facility] after he reported to staff he was feeling depressed and suicidal with plan to cut himself per ED. In ED pt continued to endorse depression with SI and plan to cut himself for 3 days, cause unknown, insistent on being admitted [facility] for treatment of would "bleed out." He denied HI, hallucinations, delusions in the ED. VITAL SIGNS: See below. NEW TEST RESULTS: ANC 4659.3 wnl CURRENT MEDICATIONS: See below. MENTAL STATUS EXAMINATION: No change from 06/28/19 General Appearance: well groomed, appears stated age, hospital scrubs/clothing Build: average Demeanor: withdrawn Eye Contact: fair Activity: slowed Behavior: cooperative, withdrawn Speech: clear, low in volume, reg/rate,rhythm,volume Mood: depressed Mood "alirght" Affect: constricted, flat, congruent Thought Process: concrete, depressed, slow Thought Content (Delusions): denies SI, HI, AVH Thought Content (Other): none reported Thought Content (Aggressive): none reported Perception (Hallucinations): none reported Perception (Other): none reported Cognition (Impairment of): ability to abstract Cognition(Intelligence Est.): average Oriented: Awake, Alert, Oriented times three Insight: fair Judgment: Fair Psychosis: Denies DIAGNOSES: Schizoaffective disorder, bipolar type generalized anxiety disorder history of polysubstance dependence in term remission ASSESSMENT:Pt seen and states he feels "alright" here and continues to not be able to name anything that is going on at [facility] that is making him depressed and suicidal every time he returns after treatment and stabilization here. He is very appreciated of being seen by PT regarding his back pain, enjoys it, and is finding it helpful. States he's been compliant on his medications and feels they're beneficial. Starting [facility] process and pt believes long-term treatment would be beneficial for him. He denies SI/HI, hallucinations, delusions today. Feels safe here. Appears depressed but is up socializing with peers in the lounge and groups daily as he likes to daily. MANAGEMENT PLAN: monitor for safety. 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 Rexulti 1mg daily TIME SPENT: 30 minutes. Vital Signs Vital Signs Date Time Temp Pulse Resp B/P (MAP) Pulse Ox O2 Delivery O2 Flow Rate FiO2 06/29/19 06:38 98.5 92 18 115/72 (86) 06/28/19 08:15 Room Air 06/26/19 22:30 95 Laboratory Data 24H Labs Laboratory Tests 2 06/29/19 06:50: Nucleated Red Blood Cells % (auto) 0.0, Anion Gap 4L, Glomerular Filtration Rate > 60.0, Blood Urea Nitrogen 15, Creatinine 1.11, Sodium Level 144, Potassium Level 4.3, Chloride Level 111H, Carbon Dioxide Level 29, Calcium Level 9.2, Aspartate Amino Transf (AST/SGOT) 22, Alanine Aminotransferase (ALT/SGPT) 35, Alkaline Phosphatase 72, Total Bilirubin 0.1#L, Total Protein 6.9, Albumin 3.1L, Magnesium Level 2.1, Albumin/Globulin Ratio 0.82L CBC/BMP Laboratory Tests 06/29/19 06:50 Red Blood Count 4.47, Mean Corpuscular Volume 96.6 H, Mean Corpuscular Hemoglobin 31.8, Mean Corpuscular Hemoglobin Concent 32.9, Red Cell Distribution Width 13.0, Calcium Level 9.2, Aspartate Amino Transf (AST/SGOT) 22, Alanine Aminotransferase (ALT/SGPT) 35, Alkaline Phosphatase 72, Total Bilirubin 0.1 #L, Total Protein 6.9, Albumin 3.1 L Current Medications Current Medications Medications (Trade) Dose Ordered Sig/Billy Route PRN Reason Start Time Stop Time Status Last Admin Dose Admin Acetaminophen (Tylenol Tab) 650 mg Q6HP PRN PO HEADACHE or DISCOMFORT 06/26/19 19:30 Al Hydrox/Mg Hydrox/Simethicone (Mylanta) 30 ml Q4HP PRN PO HEARTBURN/INDIGESTION 06/26/19 19:30 Brexpiprazole (Rexulti) 1 mg DAILY PO 06/27/19 09:00 06/29/19 08:16 Clonidine HCl (Catapres) 0.1 mg QHS PO 06/27/19 21:00 06/28/19 20:10 Clozapine (Clozaril) 200 mg BID PO 06/27/19 09:00 06/29/19 08:16 Cyclobenzaprine HCl (Flexeril) 5 mg Q8H PO 06/27/19 14:00 06/29/19 06:00 Divalproex Sodium (Depakote) 250 mg QHS PO 06/27/19 21:00 06/28/19 20:09 Divalproex Sodium (Depakote) 500 mg BID PO 06/27/19 09:00 06/29/19 08:15 Docusate Sodium (Colace) 100 mg BID PO 06/27/19 09:00 06/29/19 08:15 Gabapentin (Neurontin) 100 mg QHS PO 06/27/19 21:00 06/28/19 20:11 Home Med (Med Rec Complete!) ASDIRECTED XX 06/26/19 19:00 06/26/19 19:00 DC Ibuprofen (Advil) 800 mg BID PRN PO PAIN 06/27/19 10:00 06/28/19 08:45 Levothyroxine Sodium (Synthroid) 75 mcg DAILY@0600 PO 06/27/19 06:00 06/29/19 06:00 Magnesium Hydroxide (Milk Of Magnesia) 30 ml DAILYPRN PRN PO CONSTIPATION 06/26/19 19:30 Multivitamins (Theragram-M) 1 tab DAILY PO 06/27/19 09:00 06/29/19 08:15 Nicotine (Nicorette) 2 mg Q2HP PRN PO NICOTINE WITHDRAWAL 06/27/19 17:00 06/29/19 08:18 Non-Formulary Medication ( See Comment Field Below ) SEE COMMENTS SECTION 1T@10 XX 06/30/19 10:00 06/30/19 10:00 DC Non-Formulary Medication ( See Comment Field Below ) SEE LABEL COMMENTS DAILY XX 06/28/19 09:00 06/28/19 13:31 DC Nortriptyline HCl (Pamelor) 100 mg QHS PO 06/27/19 21:00 06/28/19 20:12 Olanzapine (ZyPREXA) 15 mg QHS PO 06/27/19 21:00 06/28/19 20:11 Pantoprazole Sodium (Protonix) 40 mg DAILY PO 06/27/19 09:00 06/29/19 08:15 Tamsulosin HCl (Flomax) 0.4 mg DAILY PO 06/27/19 09:00 06/29/19 08:15 Tiotropium [place] (Spiriva Handihaler) 1 inhalation DAILY@0800 INH 06/27/19 08:00 06/29/19 08:16 Trazodone HCl (Desyrel) 50 mg QHSP PRN PO INSOMNIA 06/26/19 19:30 06/28/19 21:12 Trihexyphenidyl HCl (Artane) 5 mg DAILY PO 06/27/19 09:00 06/29/19 08:17 Allergies Coded Allergies: haloperidol (Verified Adverse Reaction, Severe, EPS, Difficulty Breathing, 05/29/19) loxapine (Verified Adverse Reaction, Severe, Tounge protrsion, diff ze athing, 05/29/19) lithium (Verified Adverse Reaction, Intermediate, speech problems, 05/29/19) JULIO SPENCE DO Jun 29, 2019 9:23 am
--- NOTE | 2019-06-29 09:27 | IPNPDOC ---
Text Note Date of Service The patient was seen on 06/29/19. NOTE Subjective: Reports marked improvement in back pain. Able to internally rotate right and left hip, able to straight leg raise, constipation, improved. Objective GENERAL: NAD SKIN : Warm, dry intact HEENT: Atraumatic, normocephalic, PERRL, moist mucous membrane CARDIOVASCULAR: Regular rate and rhythm, S1S2, no JVD, no edema, distal pulses + palpable RESP: CTAB, no accessory muscle use noted ABDOMEN: BS+ non distended non tender MS: no joint deformities NEURO: Alert and oriented x 3 PSYCH: no anxiety or agitation, appropriate mood and affect. Assessment/Plan degenerative Disc Disease -Evaluated by PT, recommendations noted. -Continue NSAIDs for pain management as needed Constipation -continue colace BPH -Continue Flomax Hypothyroidism -Synthroid 75mcg/daily Suicidal ideation -Evaluation and management per primary team VS,Josy, I+O VSJosy I+O Laboratory Tests 06/29/19 06:50 Red Blood Count 4.47, Mean Corpuscular Volume 96.6 H, Mean Corpuscular Hemoglobin 31.8, Mean Corpuscular Hemoglobin Concent 32.9, Red Cell Distribution Width 13.0, Calcium Level 9.2, Aspartate Amino Transf (AST/SGOT) 22, Alanine Aminotransferase (ALT/SGPT) 35, Alkaline Phosphatase 72, Total Bilirubin 0.1 #L, Total Protein 6.9, Albumin 3.1 L Vital Signs Date Time Temp Pulse Resp B/P (MAP) Pulse Ox O2 Delivery O2 Flow Rate FiO2 06/29/19 06:38 98.5 92 18 115/72 (86) 06/28/19 08:15 Room Air 06/26/19 22:30 95 MALIK SOLOMON Jun 29, 2019 09:27
[2019-06-29 18:00] VITALS: BP 133/77
[2019-06-29] MEDS: GABAPENTIN 100 MG CAP PO SCH (20:19)
[2019-06-29] MEDS: OLANZapine 5 MG TAB PO SCH (20:19)
[2019-06-29] MEDS: DIVALPROEX 250 MG TAB PO SCH (20:19)
[2019-06-29] MEDS: NORTRIPTYLINE 25 MG CAP PO SCH (20:20)
[2019-06-29] MEDS: cloNIDine 0.1 MG TAB PO SCH (20:21)
[2019-06-29] MEDS: traZODone 50 MG TAB PO PRN (21:16)
[2019-06-30] MEDS: LEVOTHYROXINE 75MCG TABLET (0.075MG) PO SCH (05:53)
[2019-06-30] MEDS: CYCLOBENZAPRINE 5MG TABLET PO SCH ×3 (05:54→21:05)
[2019-06-30 06:08] VITALS: BP 125/82
[2019-06-30] MEDS: DIVALPROEX 500 MG TAB PO SCH ×2 (08:28→21:05)
[2019-06-30] MEDS: MULTIVITAMINS/MINERALS THERAP 1 TAB PO SCH (08:28)
[2019-06-30] MEDS: DOCUSATE SODIUM 100 MG CAP PO SCH ×2 (08:28→21:06)
[2019-06-30] MEDS: TIOTROPIUM INHALER/CAPSULE (SPIRIVA) INH SCH (08:28)
[2019-06-30] MEDS: PANTOPRAZOLE 40MG TAB (PROTONIX) PO SCH (08:28)
[2019-06-30] MEDS: TAMSULOSIN 0.4 MG CAP PO SCH (08:28)
[2019-06-30] MEDS: cloZAPine 100 MG TAB (S0136) PO SCH ×2 (08:28→21:06)
[2019-06-30] MEDS: TRIHEXYPHENIDYL 2 MG TAB PO SCH (08:28)
[2019-06-30] MEDS: BREXPIPRAZOLE 0.5MG TABLET (REXULTI) PO SCH (08:28)
[2019-06-30] MEDS: NICOTINE POLACRILEX 2 MG GUM PO PRN ×3 (08:29→21:05)
[2019-06-30] MEDS ORDERED: PPD DOCUMENTATION ENTRY MISC XX SCH (10:00)
[2019-06-30] MEDS ORDERED: PPD DOCUMENTATION ENTRY MISC XX ONE (15:00)
[2019-06-30 18:08] VITALS: BP 134/77
[2019-06-30] MEDS: traZODone 50 MG TAB PO PRN (21:05)
[2019-06-30] MEDS: GABAPENTIN 100 MG CAP PO SCH (21:05)
[2019-06-30] MEDS: cloNIDine 0.1 MG TAB PO SCH (21:05)
[2019-06-30] MEDS: NORTRIPTYLINE 25 MG CAP PO SCH (21:05)
[2019-06-30] MEDS: OLANZapine 5 MG TAB PO SCH (21:06)
[2019-06-30] MEDS: DIVALPROEX 250 MG TAB PO SCH (21:06)
[2019-07-01] MEDS: CYCLOBENZAPRINE 5MG TABLET PO SCH ×3 (06:06→21:57)
[2019-07-01] MEDS: LEVOTHYROXINE 75MCG TABLET (0.075MG) PO SCH (06:06)
[2019-07-01 06:51] VITALS: BP 111/72
--- NOTE | 2019-07-01 07:04 | MHIPN ---
DATE: 06/30/2019 VITAL SIGNS: Temperature 97.1, pulse 83, respirations 16, blood pressure 125/82. CURRENT MEDICATION: Depakote 250 mg at bedtime, gabapentin 100 mg at bedtime, nortriptyline 100 mg at bedtime, Zyprexa 15 mg at bedtime, clozapine 200 mg twice a day, Depakote 500 mg twice a day, Rexulti 1 mg every day, trazodone 50 mg at bedtime as needed. HISTORY OF PRESENT ILLNESS: This is a 59-year-old white male, single, living at [facility] ([facility]). Patient has history of schizoaffective disorder. He has a long psychiatric history with multiple suicide attempts over the years. Patient presented to the emergency room with suicidal ideation with plans to cut himself. Patient has continued to felt depressed and suicidal while being here on the psychiatric serna. Patient appears appropriate for referral to [facility] care. He is cooperative to a transfer to [facility] where has been treated in the past. Staff are starting to initiate such as transfer. Patient states his depressive symptoms are still quite high at a level of 5/10. He is passive suicidal ideation, but no active intent. He denies current psychotic symptoms. MENTAL STATUS EXAMINATION: Patient is alert, oriented, and cooperative. Affect is flat. Behavior is withdrawn. Speech is low in volume. Mood is depressed moderately so with passive suicidal thoughts. He denies current auditory or visual hallucinations. He denies paranoia. No signs of thought disorder. Cognitive functions appear intact. Insight and judgment are fair. DIAGNOSIS: Schizoaffective disorder, bipolar type. Generalized anxiety disorder. PLAN: Continue present management. Staff however can process for referral to [facility] for [facility]pc care due to his treatment resistant condition. No change in psychotropics at this time.
[2019-07-01] MEDS: DOCUSATE SODIUM 100 MG CAP PO SCH ×2 (08:15→20:18)
[2019-07-01] MEDS: TIOTROPIUM INHALER/CAPSULE (SPIRIVA) INH SCH (08:15)
[2019-07-01] MEDS: MULTIVITAMINS/MINERALS THERAP 1 TAB PO SCH (08:15)
[2019-07-01] MEDS: TAMSULOSIN 0.4 MG CAP PO SCH (08:15)
[2019-07-01] MEDS: PANTOPRAZOLE 40MG TAB (PROTONIX) PO SCH (08:16)
[2019-07-01] MEDS: cloZAPine 100 MG TAB (S0136) PO SCH ×2 (08:16→20:17)
[2019-07-01] MEDS: BREXPIPRAZOLE 0.5MG TABLET (REXULTI) PO SCH (08:16)
[2019-07-01] MEDS: DIVALPROEX 500 MG TAB PO SCH ×2 (08:16→20:18)
[2019-07-01] MEDS: NICOTINE POLACRILEX 2 MG GUM PO PRN ×2 (08:17→20:29)
[2019-07-01] MEDS: TRIHEXYPHENIDYL 2 MG TAB PO SCH (08:17)
[2019-07-01] MEDS: LORazepam 1 MG TAB PO PRN ×2 (15:24→20:18)
[2019-07-01 18:02] VITALS: BP 127/78
[2019-07-01] MEDS: DIVALPROEX 250 MG TAB PO SCH (20:17)
[2019-07-01] MEDS: GABAPENTIN 100 MG CAP PO SCH (20:18)
[2019-07-01] MEDS: OLANZapine 5 MG TAB PO SCH (20:18)
[2019-07-01] MEDS: NORTRIPTYLINE 25 MG CAP PO SCH (20:18)
[2019-07-01] MEDS: cloNIDine 0.1 MG TAB PO SCH (20:19)
[2019-07-02] MEDS: LEVOTHYROXINE 75MCG TABLET (0.075MG) PO SCH (05:49)
[2019-07-02] MEDS: CYCLOBENZAPRINE 5MG TABLET PO SCH ×3 (05:49→21:41)
[2019-07-02] MEDS: NICOTINE POLACRILEX 2 MG GUM PO PRN ×4 (05:50→20:23)
[2019-07-02 06:53] VITALS: BP 116/75
[2019-07-02] MEDS: TAMSULOSIN 0.4 MG CAP PO SCH (09:09)
[2019-07-02] MEDS: cloZAPine 100 MG TAB (S0136) PO SCH ×2 (09:09→20:19)
[2019-07-02] MEDS: DOCUSATE SODIUM 100 MG CAP PO SCH ×2 (09:09→20:20)
[2019-07-02] MEDS: TIOTROPIUM INHALER/CAPSULE (SPIRIVA) INH SCH (09:09)
[2019-07-02] MEDS: BREXPIPRAZOLE 0.5MG TABLET (REXULTI) PO SCH (09:09)
[2019-07-02] MEDS: MULTIVITAMINS/MINERALS THERAP 1 TAB PO SCH (09:09)
[2019-07-02] MEDS: DIVALPROEX 500 MG TAB PO SCH ×2 (09:09→20:19)
[2019-07-02] MEDS: TRIHEXYPHENIDYL 2 MG TAB PO SCH (09:09)
[2019-07-02] MEDS: PANTOPRAZOLE 40MG TAB (PROTONIX) PO SCH (09:09)
[2019-07-02 18:40] VITALS: BP 146/82
[2019-07-02] MEDS: GABAPENTIN 100 MG CAP PO SCH (20:19)
[2019-07-02] MEDS: NORTRIPTYLINE 25 MG CAP PO SCH (20:19)
[2019-07-02] MEDS: DIVALPROEX 250 MG TAB PO SCH (20:20)
[2019-07-02] MEDS: OLANZapine 5 MG TAB PO SCH (20:20)
[2019-07-02] MEDS: cloNIDine 0.1 MG TAB PO SCH (20:20)
[2019-07-02] MEDS: traZODone 50 MG TAB PO PRN (21:41)
[2019-07-03] MEDS: LEVOTHYROXINE 75MCG TABLET (0.075MG) PO SCH (05:53)
[2019-07-03] MEDS: CYCLOBENZAPRINE 5MG TABLET PO SCH ×3 (05:53→21:39)
[2019-07-03 06:36] VITALS: BP 120/63
[2019-07-03] MEDS: TIOTROPIUM INHALER/CAPSULE (SPIRIVA) INH SCH (07:36)
[2019-07-03 08:14] VITALS: BP 120/63
[2019-07-03] MEDS: DIVALPROEX 500 MG TAB PO SCH ×2 (08:25→20:10)
[2019-07-03] MEDS: DOCUSATE SODIUM 100 MG CAP PO SCH ×2 (08:25→20:12)
[2019-07-03] MEDS: TAMSULOSIN 0.4 MG CAP PO SCH (08:25)
[2019-07-03] MEDS: PANTOPRAZOLE 40MG TAB (PROTONIX) PO SCH (08:25)
[2019-07-03] MEDS: BREXPIPRAZOLE 0.5MG TABLET (REXULTI) PO SCH (08:25)
[2019-07-03] MEDS: TRIHEXYPHENIDYL 2 MG TAB PO SCH (08:25)
[2019-07-03] MEDS: cloZAPine 100 MG TAB (S0136) PO SCH ×2 (08:25→20:10)
[2019-07-03] MEDS: MULTIVITAMINS/MINERALS THERAP 1 TAB PO SCH (08:26)
[2019-07-03] MEDS: NICOTINE POLACRILEX 2 MG GUM PO PRN ×4 (08:26→20:12)
[2019-07-03 15:55] VITALS: BP 121/67
[2019-07-03 17:09] LABS: APPEARANCE, URINE CLEAR (CLEAR); BACTERIA, URINE AUTO NEGATIVE (NEGATIVE); BILIRUBIN, URINE AUTO NEGATIVE (NEGATIVE); BLOOD, URINE BLOOD NEGATIVE (NEGATIVE); COLOR, URINE YELLOW (YELLOW); GLUCOSE, URINE (UA) AUTO NEGATIVE (NEGATIVE); KETONE, URINE AUTO NEGATIVE (NEGATIVE); LEUKOCYTE ESTERASE, URINE AUTO NEGATIVE (NEGATIVE); MUCUS, URINE SMALL (NEGATIVE); NITRITE, URINE AUTO NEGATIVE (NEGATIVE); PROTEIN, URINE AUTO NEGATIVE (NEGATIVE); RBC, URINE AUTO 0 /HPF (0-3); SPECIFIC GRAVITY URINE AUTO 1.009 (1.002-1.035); SQUAMOUS EPITHELIAL CELL UR AU 0 /HPF (0-6); UROBILINOGEN, URINE AUTO 0.2 mg/dL (0.0-2.0); WBC, URINE AUTO 0 /HPF (0-3)
[2019-07-03] MEDS: NORTRIPTYLINE 25 MG CAP PO SCH (20:10)
[2019-07-03] MEDS: GABAPENTIN 100 MG CAP PO SCH (20:10)
[2019-07-03] MEDS: cloNIDine 0.1 MG TAB PO SCH (20:11)
[2019-07-03] MEDS: OLANZapine 5 MG TAB PO SCH (20:11)
[2019-07-03] MEDS: DIVALPROEX 250 MG TAB PO SCH (20:12)
[2019-07-03] MEDS: traZODone 50 MG TAB PO PRN (21:39)
--- NOTE | 2019-07-03 22:17 | MHIPN ---
DATE: 07/03/2019 VITAL SIGNS: Temperature is 97.6, pulse 87, respirations 12, blood pressure 120/63. CURRENT MEDICATIONS: Depakote 1250 mg per day, clozapine 200 mg twice a day, Zyprexa 15 mg at bedtime (hs), nortriptyline 100 mg at bedtime (hs), gabapentin 100 mg at bedtime (hs), Artane 5 mg daily, Rexulti 1 mg daily, trazodone 50 mg at bedtime (hs) as needed. HISTORY OF PRESENT ILLNESS: The patient had some increase in his psychotic symptoms over the weekend; he is not sure exactly why. This made him briefly more depressed and suicidal. The patient was given as needed of Ativan with good affect. The patient does hear voices on a chronic basis, claims that they are low level today. Staff states that the patient was turned down for transfer to [facility]. This may be repealed. The patient currently on three antipsychotics. The patient's Clozaril level from May was normal, but was below therapeutic level at 273, therapeutic level is 350 to 650. The patient denies any other participating stressors. The patient worried about possible urinary difficulty. Urinalysis will be obtained. The patient states that his depression continues in a mild to moderate range today. MENTAL STATUS EXAMINATION: The patient is alert, oriented and cooperative. Affect remains flat. He is withdrawn. Speech remains low. Mood is moderately depressed with suicidal thoughts over the weekend. He now admits to auditory hallucinations, which are chronic. He denies paranoia. No signs of thought disorder. Insight and judgment are fair. No signs of organicity. DIAGNOSIS: 1. Schizoaffective disorder, bipolar type. 2. Generalized anxiety disorder. PLAN: Staff to repeal [facility]. Old records have been reviewed regarding possible increase in his clozapine or Rexulti.
[2019-07-04] MEDS: LEVOTHYROXINE 75MCG TABLET (0.075MG) PO SCH (05:48)
[2019-07-04] MEDS: CYCLOBENZAPRINE 5MG TABLET PO SCH ×3 (05:48→21:05)
[2019-07-04] MEDS: NICOTINE POLACRILEX 2 MG GUM PO PRN ×3 (05:48→20:37)
[2019-07-04 06:40] VITALS: BP 110/73
[2019-07-04] MEDS: TRIHEXYPHENIDYL 2 MG TAB PO SCH (08:34)
[2019-07-04] MEDS: PILL CUTTER 1 EACH XX PRN (08:34)
[2019-07-04] MEDS: cloZAPine 100 MG TAB (S0136) PO SCH ×2 (08:35→20:31)
[2019-07-04] MEDS: TIOTROPIUM INHALER/CAPSULE (SPIRIVA) INH SCH (08:36)
[2019-07-04] MEDS: PANTOPRAZOLE 40MG TAB (PROTONIX) PO SCH (08:36)
[2019-07-04] MEDS: TAMSULOSIN 0.4 MG CAP PO SCH (08:36)
[2019-07-04] MEDS: DOCUSATE SODIUM 100 MG CAP PO SCH ×2 (08:36→20:33)
[2019-07-04] MEDS: BREXPIPRAZOLE 0.5MG TABLET (REXULTI) PO SCH (08:36)
[2019-07-04] MEDS: MULTIVITAMINS/MINERALS THERAP 1 TAB PO SCH (08:36)
[2019-07-04] MEDS: DIVALPROEX 500 MG TAB PO SCH ×2 (08:37→20:32)
[2019-07-04 16:31] VITALS: BP 125/83
--- NOTE | 2019-07-04 20:00 | MHIPN ---
DATE: 06/26/2019 VITAL SIGNS: Temperature 97.6, pulse 77, respirations 14, blood pressure 110/73. CURRENT MEDICATIONS: - Rexulti 2 mg every morning - clonidine 0.1 mg at bedtime - Depakote 1250 mg per day - gabapentin 100 mg at bedtime - nortriptyline 100 mg at bedtime - Zyprexa 15 mg at bedtime - clozapine 200 mg twice a day HISTORY OF PRESENT ILLNESS: The patient still reports psychotic symptoms. The patient states his mood fluctuates throughout the day. The patient does have a history of suicidal behavior with serious suicide attempts in the past. The patient hears the voices coming from down the [place]. They are somewhat muffled but are frequent. The patient's Rexulti was increased this morning. He tolerated it well. The patient was concerned about his prostate. The urinalysis from yesterday is within normal limits. MENTAL STATUS EXAMINATION: The patient is alert, oriented and cooperative. Affect remains flat. Volume of speech is still low. Mood is moderately depressed. He had recent suicidal thoughts over the weekend. Auditory hallucinations are chronic and prominent. No signs of paranoia or thought disorder. Insight and judgment remain fair. No signs of organic deficits. DIAGNOSES: 1. Schizoaffective disorder, bipolar type. 2. Generalized anxiety disorder. PLAN: Continue Rexulti. The patient will appeal the [facility] referral after one week.
[2019-07-04] MEDS: cloNIDine 0.1 MG TAB PO SCH (20:31)
[2019-07-04] MEDS: NORTRIPTYLINE 25 MG CAP PO SCH (20:32)
[2019-07-04] MEDS: OLANZapine 5 MG TAB PO SCH (20:32)
[2019-07-04] MEDS: DIVALPROEX 250 MG TAB PO SCH (20:33)
[2019-07-04] MEDS: GABAPENTIN 100 MG CAP PO SCH (20:33)
[2019-07-04] MEDS: traZODone 50 MG TAB PO PRN (20:33)
[2019-07-05] MEDS: LEVOTHYROXINE 75MCG TABLET (0.075MG) PO SCH (05:52)
[2019-07-05] MEDS: CYCLOBENZAPRINE 5MG TABLET PO SCH ×3 (05:52→22:00)
[2019-07-05 06:38] VITALS: BP 135/82
[2019-07-05] MEDS: TIOTROPIUM INHALER/CAPSULE (SPIRIVA) INH SCH (07:43)
[2019-07-05] MEDS: PANTOPRAZOLE 40MG TAB (PROTONIX) PO SCH (08:15)
[2019-07-05] MEDS: DIVALPROEX 500 MG TAB PO SCH ×2 (08:15→20:22)
[2019-07-05] MEDS: PILL CUTTER 1 EACH XX PRN (08:15)
[2019-07-05] MEDS: BREXPIPRAZOLE 0.5MG TABLET (REXULTI) PO SCH (08:16)
[2019-07-05] MEDS: cloZAPine 100 MG TAB (S0136) PO SCH ×2 (08:16→20:23)
[2019-07-05] MEDS: DOCUSATE SODIUM 100 MG CAP PO SCH ×2 (08:16→20:23)
[2019-07-05] MEDS: TAMSULOSIN 0.4 MG CAP PO SCH (08:16)
[2019-07-05] MEDS: MULTIVITAMINS/MINERALS THERAP 1 TAB PO SCH (08:16)
[2019-07-05] MEDS: TRIHEXYPHENIDYL 2 MG TAB PO SCH (08:17)
[2019-07-05] MEDS: NICOTINE POLACRILEX 2 MG GUM PO PRN ×3 (08:18→20:24)
[2019-07-05 18:00] VITALS: BP 132/77
[2019-07-05] MEDS: NORTRIPTYLINE 25 MG CAP PO SCH (20:22)
[2019-07-05] MEDS: DIVALPROEX 250 MG TAB PO SCH (20:22)
[2019-07-05] MEDS: GABAPENTIN 100 MG CAP PO SCH (20:23)
[2019-07-05] MEDS: cloNIDine 0.1 MG TAB PO SCH (20:23)
[2019-07-05] MEDS: OLANZapine 5 MG TAB PO SCH (20:23)
[2019-07-05] MEDS: traZODone 50 MG TAB PO PRN (21:54)
[2019-07-06] MEDS: CYCLOBENZAPRINE 5MG TABLET PO SCH ×3 (06:12→21:02)
[2019-07-06] MEDS: LEVOTHYROXINE 75MCG TABLET (0.075MG) PO SCH (06:12)
[2019-07-06 06:39] VITALS: BP_SYST 109; BP_SYST 138; BP_DIAS 61; BP_DIAS 72
[2019-07-06] MEDS: PANTOPRAZOLE 40MG TAB (PROTONIX) PO SCH (08:57)
[2019-07-06] MEDS: DOCUSATE SODIUM 100 MG CAP PO SCH ×2 (08:57→20:05)
[2019-07-06] MEDS: TAMSULOSIN 0.4 MG CAP PO SCH (08:57)
[2019-07-06] MEDS: BREXPIPRAZOLE 2MG TABLET (REXULTI) PO SCH (08:58)
[2019-07-06] MEDS: cloZAPine 100 MG TAB (S0136) PO SCH ×2 (08:58→20:04)
[2019-07-06] MEDS: DIVALPROEX 500 MG TAB PO SCH ×2 (08:58→20:05)
[2019-07-06] MEDS: TRIHEXYPHENIDYL 2 MG TAB PO SCH (08:59)
[2019-07-06] MEDS: NICOTINE POLACRILEX 2 MG GUM PO PRN ×2 (08:59→20:04)
[2019-07-06] MEDS: MULTIVITAMINS/MINERALS THERAP 1 TAB PO SCH (08:59)
[2019-07-06] MEDS: TIOTROPIUM INHALER/CAPSULE (SPIRIVA) INH SCH (09:07)
--- NOTE | 2019-07-06 09:49 | MHIPNPDOC ---
[facility] Progress Note Progress Note DATE OF SERVICE: 07/06/19 HISTORY: Patient is a 58 -year-old , male, with a history of schizoaffective d/o, multiple inpatient admits to [facility], multiple SA by OD/cutting/hanging who was brought to ED by [facility] after he reported to staff he was feeling depressed and suicidal with plan to cut himself per ED. In ED pt continued to endorse depression with SI and plan to cut himself for 3 days, cause unknown, insistent on being admitted [facility] for treatment of would "bleed out." He denied HI, hallucinations, delusions in the ED. VITAL SIGNS: See below. NEW TEST RESULTS: ANC 4659.3 wnl CURRENT MEDICATIONS: See below. MENTAL STATUS EXAMINATION: The patient is alert, oriented and cooperative. Affect remains flat. Volume of speech is still low. Mood is moderately depressed. He had recent suicidal thoughts over the weekend. Auditory hallucinations are chronic and prominent. No signs of paranoia or thought disorder. Insight and judgment remain fair. No signs of organic deficits. DIAGNOSES: 1. Schizoaffective disorder, bipolar type. 2. Generalized anxiety disorder. ASSESSMENT:Pt seen and states he feels "better" is finding the increase in rexulti beneficial and tolerating it well. Continues to have chronic depression and admits he's hearing voices but sometimes isn't sure if he really is as "it's hard to tell what's real and what's not." States he's been compliant on his medications and feels they're beneficial. States he looking forward to going to [facility] for residential treatment soon. He denies SI/HI, CAH, VH, delusions today. Feels safe here. Appears depressed but is up socializing with peers in the lounge and groups daily as he likes to daily. MANAGEMENT PLAN: continue plan. Awaiting transfer to [facility]. - Rexulti 2 mg every morning - clonidine 0.1 mg at bedtime - Depakote 1250 mg per day - gabapentin 100 mg at bedtime - nortriptyline 100 mg at bedtime - Zyprexa 15 mg at bedtime - clozapine 200 mg twice a day Vital Signs Vital Signs Date Time Temp Pulse Resp B/P (MAP) Pulse Ox O2 Delivery O2 Flow Rate FiO2 07/06/19 06:39 97.1 85 14 138/72 (94) 07/03/19 08:14 95 Current Medications Current Medications Medications (Trade) Dose Ordered Sig/Billy Route PRN Reason Start Time Stop Time Status Last Admin Dose Admin Acetaminophen (Tylenol Tab) 650 mg Q6HP PRN PO HEADACHE or DISCOMFORT 06/26/19 19:30 Al Hydrox/Mg Hydrox/Simethicone (Mylanta) 30 ml Q4HP PRN PO HEARTBURN/INDIGESTION 06/26/19 19:30 Brexpiprazole (Rexulti) 1 mg DAILY PO 06/27/19 09:00 07/03/19 15:56 DC 07/03/19 08:25 Brexpiprazole (Rexulti) 2 mg DAILY PO 07/04/19 09:00 07/05/19 14:00 DC 07/05/19 08:16 Brexpiprazole (Rexulti) 3 mg DAILY PO 07/06/19 09:00 07/06/19 08:58 Clonidine HCl (Catapres) 0.1 mg QHS PO 06/27/19 21:00 07/05/19 20:23 Clozapine (Clozaril) 200 mg BID PO 06/27/19 09:00 07/06/19 08:58 Cyclobenzaprine HCl (Flexeril) 5 mg Q8H PO 06/27/19 14:00 07/06/19 06:12 Divalproex Sodium (Depakote) 250 mg QHS PO 06/27/19 21:00 07/05/19 20:22 Divalproex Sodium (Depakote) 500 mg BID PO 06/27/19 09:00 07/06/19 08:58 Docusate Sodium (Colace) 100 mg BID PO 06/27/19 09:00 07/06/19 08:57 Gabapentin (Neurontin) 100 mg QHS PO 06/27/19 21:00 07/05/19 20:23 Home Med (Med Rec Complete!) ASDIRECTED XX 06/26/19 19:00 06/26/19 19:00 DC Ibuprofen (Advil) 800 mg BID PRN PO PAIN 06/27/19 10:00 06/28/19 08:45 Levothyroxine Sodium (Synthroid) 75 mcg DAILY@0600 PO 06/27/19 06:00 07/06/19 06:12 Lorazepam (Ativan) 1 mg Q4HP PRN PO ANXIETY 07/01/19 15:15 07/01/19 20:18 Magnesium Hydroxide (Milk Of Magnesia) 30 ml DAILYPRN PRN PO CONSTIPATION 06/26/19 19:30 Miscellaneous (Unresolved Clarification Entry) SEE LABEL COMMENTS DAILY XX 07/03/19 09:00 07/03/19 14:02 DC Multivitamins (Theragram-M) 1 tab DAILY PO 06/27/19 09:00 07/06/19 08:59 Nicotine (Nicorette) 2 mg Q2HP PRN PO NICOTINE WITHDRAWAL 06/27/19 17:00 07/06/19 08:59 Non-Formulary Medication ( See Comment Field Below ) SEE COMMENTS SECTION 1T@10 XX 06/30/19 10:00 06/30/19 10:00 DC Non-Formulary Medication ( See Comment Field Below ) SEE LABEL COMMENTS DAILY XX 06/28/19 09:00 06/28/19 13:31 DC Nortriptyline HCl (Pamelor) 100 mg QHS PO 06/27/19 21:00 07/05/19 20:22 Olanzapine (ZyPREXA) 15 mg QHS PO 06/27/19 21:00 07/05/19 20:23 Pantoprazole Sodium (Protonix) 40 mg DAILY PO 06/27/19 09:00 07/06/19 08:57 Tamsulosin HCl (Flomax) 0.4 mg DAILY PO 06/27/19 09:00 07/06/19 08:57 Tiotropium [place] (Spiriva Handihaler) 1 inhalation DAILY@0800 INH 06/27/19 08:00 07/06/19 09:07 Trazodone HCl (Desyrel) 50 mg QHSP PRN PO INSOMNIA 06/26/19 19:30 07/05/19 21:54 Trihexyphenidyl HCl (Artane) 5 mg DAILY PO 06/27/19 09:00 07/06/19 08:59 Allergies Coded Allergies: haloperidol (Verified Adverse Reaction, Severe, EPS, Difficulty Breathing, 05/29/19) loxapine (Verified Adverse Reaction, Severe, Tounge protrsion, diff breathing, 05/29/19) lithium (Verified Adverse Reaction, Intermediate, speech problems, 05/29/19) JULIO SPENCE DO Jul 06, 2019 9:49 am
--- NOTE | 2019-07-06 13:20 | MHIPN ---
DATE: 07/05/2019 VITAL SIGNS: Temperature 97.4, pulse 93, respirations 14, blood pressure 135/82. CURRENT MEDICATIONS: - Rexulti 2 mg daily - clonidine 0.1 mg at bedtime - Depakote 1250 mg per day - gabapentin 100 mg at bedtime - nortriptyline 100 mg at bedtime - Zyprexa 15 mg at bedtime - clozapine 200 mg twice a day - Artane 5 mg daily - trazodone 50 mg at bedtime as needed HISTORY OF PRESENT ILLNESS: Patient states he is having a bad day. His anxiety symptoms are worse. His depressive symptoms are worse. He has chronic suicidal thoughts, but he tries to ignore them. Patient is still hearing his auditory hallucinations, which are troubling as well. Patient states he is tolerating the Rexulti well. He has no side effects from it. No signs of akathisia. He is going to increase the dosage. He states his appetite is fine. He sleeps well with the medication. Patient has no other complaints. He still hopes to get in [facility] for long-term care. MENTAL STATUS EXAMINATION: The patient is alert, oriented, and cooperative. Affect remains flat. Volume of speech is low and hard to hear at times. Mood is still moderately depressed with moderate anxiety. Patient has passive suicidal thoughts. Auditory hallucinations are chronic in nature. Insight and judgment remain fair. Grooming and hygiene are fair. 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 Patient is on polypharmacy and still having psychotic symptoms. DIAGNOSES: 1. Schizoaffective disorder, bipolar type. 2. Generalized anxiety disorder. PLAN: Increase dose of Rexulti. No change other psychotropics. Dr. Rodriguez to return tomorrow to provide followup psychiatric care.
[2019-07-06 18:00] VITALS: BP 126/80
[2019-07-06] MEDS: OLANZapine 5 MG TAB PO SCH (20:04)
[2019-07-06] MEDS: NORTRIPTYLINE 25 MG CAP PO SCH (20:04)
[2019-07-06] MEDS: DIVALPROEX 250 MG TAB PO SCH (20:05)
[2019-07-06] MEDS: GABAPENTIN 100 MG CAP PO SCH (20:05)
[2019-07-06] MEDS: cloNIDine 0.1 MG TAB PO SCH (20:05)
[2019-07-06] MEDS: traZODone 50 MG TAB PO PRN (21:02)
[2019-07-07] MEDS: LEVOTHYROXINE 75MCG TABLET (0.075MG) PO SCH (05:51)
[2019-07-07] MEDS: CYCLOBENZAPRINE 5MG TABLET PO SCH ×3 (05:51→21:00)
[2019-07-07 06:35] VITALS: BP 119/81
[2019-07-07] MEDS: BREXPIPRAZOLE 2MG TABLET (REXULTI) PO SCH (08:07)
[2019-07-07] MEDS: TRIHEXYPHENIDYL 2 MG TAB PO SCH (08:08)
[2019-07-07] MEDS: PILL CUTTER 1 EACH XX PRN (08:08)
[2019-07-07] MEDS: DIVALPROEX 500 MG TAB PO SCH ×2 (08:08→20:16)
[2019-07-07] MEDS: cloZAPine 100 MG TAB (S0136) PO SCH ×2 (08:08→20:15)
[2019-07-07] MEDS: TAMSULOSIN 0.4 MG CAP PO SCH (08:08)
[2019-07-07] MEDS: MULTIVITAMINS/MINERALS THERAP 1 TAB PO SCH (08:08)
[2019-07-07] MEDS: PANTOPRAZOLE 40MG TAB (PROTONIX) PO SCH (08:09)
[2019-07-07] MEDS: TIOTROPIUM INHALER/CAPSULE (SPIRIVA) INH SCH (08:09)
[2019-07-07] MEDS: DOCUSATE SODIUM 100 MG CAP PO SCH ×2 (08:09→20:16)
[2019-07-07] MEDS: NICOTINE POLACRILEX 2 MG GUM PO PRN ×3 (08:13→20:17)
--- NOTE | 2019-07-07 11:11 | MHIPNPDOC ---
[facility] Progress Note Progress Note DATE OF SERVICE: 07/07/19 HISTORY: Patient is a 58 -year-old , male, with a history of schizoaffective d/o, multiple inpatient admits to [facility], multiple SA by OD/cutting/hanging who was brought to ED by [facility] after he reported to staff he was feeling depressed and suicidal with plan to cut himself per ED. In ED pt continued to endorse depression with SI and plan to cut himself for 3 days, cause unknown, insistent on being admitted [facility] for treatment of would "bleed out." He denied HI, hallucinations, delusions in the ED. VITAL SIGNS: See below. NEW TEST RESULTS: ANC 4659.3 wnl CURRENT MEDICATIONS: See below. MENTAL STATUS EXAMINATION: The patient is alert, oriented and cooperative. Affect remains flat. Volume of speech is still low. Mood is moderately depressed. He denies suicidal thoughts today. Auditory hallucinations are chronic and prominent. No signs of paranoia or thought disorder. Insight and judgment remain fair. No signs of organic deficits. DIAGNOSES: 1. Schizoaffective disorder, bipolar type. 2. Generalized anxiety disorder. ASSESSMENT:Pt seen and states he feels "ok" is finding his meds beneficial and tolerating them well. Continues to have chronic depression and AH that are low grade, in background, that are chronic. States he's been compliant on his medications. States he looking forward to going to [facility] for half-way treatment soon. He denies SI/HI, CAH, VH, delusions today. Feels safe here. Continues to appear depressed but is up socializing with peers in the lounge and groups daily as he likes to daily. MANAGEMENT PLAN: continue plan. Awaiting transfer to [facility]. - Rexulti 2 mg every morning - clonidine 0.1 mg at bedtime - Depakote 1250 mg per day - gabapentin 100 mg at bedtime - nortriptyline 100 mg at bedtime - Zyprexa 15 mg at bedtime - clozapine 200 mg twice a day Vital Signs Vital Signs Date Time Temp Pulse Resp B/P (MAP) Pulse Ox O2 Delivery O2 Flow Rate FiO2 07/07/19 06:35 96.8 93 18 119/81 (94) 07/03/19 08:14 95 Current Medications Current Medications Medications (Trade) Dose Ordered Sig/Billy Route PRN Reason Start Time Stop Time Status Last Admin Dose Admin Acetaminophen (Tylenol Tab) 650 mg Q6HP PRN PO HEADACHE or DISCOMFORT 06/26/19 19:30 Al Hydrox/Mg Hydrox/Simethicone (Mylanta) 30 ml Q4HP PRN PO HEARTBURN/INDIGESTION 06/26/19 19:30 Brexpiprazole (Rexulti) 1 mg DAILY PO 06/27/19 09:00 07/03/19 15:56 DC 07/03/19 08:25 Brexpiprazole (Rexulti) 2 mg DAILY PO 07/04/19 09:00 07/05/19 14:00 DC 07/05/19 08:16 Brexpiprazole (Rexulti) 3 mg DAILY PO 07/06/19 09:00 07/07/19 08:07 Clonidine HCl (Catapres) 0.1 mg QHS PO 06/27/19 21:00 07/06/19 20:05 Clozapine (Clozaril) 200 mg BID PO 06/27/19 09:00 07/07/19 08:08 Cyclobenzaprine HCl (Flexeril) 5 mg Q8H PO 06/27/19 14:00 07/07/19 05:51 Divalproex Sodium (Depakote) 250 mg QHS PO 06/27/19 21:00 07/06/19 20:05 Divalproex Sodium (Depakote) 500 mg BID PO 06/27/19 09:00 07/07/19 08:08 Docusate Sodium (Colace) 100 mg BID PO 06/27/19 09:00 07/07/19 08:09 Gabapentin (Neurontin) 100 mg QHS PO 06/27/19 21:00 07/06/19 20:05 Home Med (Med Rec Complete!) ASDIRECTED XX 06/26/19 19:00 06/26/19 19:00 DC Ibuprofen (Advil) 800 mg BID PRN PO PAIN 06/27/19 10:00 06/28/19 08:45 Levothyroxine Sodium (Synthroid) 75 mcg DAILY@0600 PO 06/27/19 06:00 07/07/19 05:51 Lorazepam (Ativan) 1 mg Q4HP PRN PO ANXIETY 07/01/19 15:15 07/01/19 20:18 Magnesium Hydroxide (Milk Of Magnesia) 30 ml DAILYPRN PRN PO CONSTIPATION 06/26/19 19:30 Miscellaneous (Unresolved Clarification Entry) SEE LABEL COMMENTS DAILY XX 07/03/19 09:00 07/03/19 14:02 DC Multivitamins (Theragram-M) 1 tab DAILY PO 06/27/19 09:00 07/07/19 08:08 Nicotine (Nicorette) 2 mg Q2HP PRN PO NICOTINE WITHDRAWAL 06/27/19 17:00 07/07/19 08:13 Non-Formulary Medication ( See Comment Field Below ) SEE COMMENTS SECTION 1T@10 XX 06/30/19 10:00 06/30/19 10:00 DC Non-Formulary Medication ( See Comment Field Below ) SEE LABEL COMMENTS DAILY XX 06/28/19 09:00 06/28/19 13:31 DC Nortriptyline HCl (Pamelor) 100 mg QHS PO 06/27/19 21:00 07/06/19 20:04 Olanzapine (ZyPREXA) 15 mg QHS PO 06/27/19 21:00 07/06/19 20:04 Pantoprazole Sodium (Protonix) 40 mg DAILY PO 06/27/19 09:00 07/07/19 08:09 Tamsulosin HCl (Flomax) 0.4 mg DAILY PO 06/27/19 09:00 07/07/19 08:08 Tiotropium [place] (Spiriva Handihaler) 1 inhalation DAILY@0800 INH 06/27/19 08:00 07/07/19 08:09 Trazodone HCl (Desyrel) 50 mg QHSP PRN PO INSOMNIA 06/26/19 19:30 07/06/19 21:02 Trihexyphenidyl HCl (Artane) 5 mg DAILY PO 06/27/19 09:00 07/07/19 08:08 Allergies Coded Allergies: haloperidol (Verified Adverse Reaction, Severe, EPS, Difficulty Breathing, 05/29/19) loxapine (Verified Adverse Reaction, Severe, Tounge protrsion, diff breathing, 05/29/19) lithium (Verified Adverse Reaction, Intermediate, speech problems, 05/29/19) JULIO SPENCE DO Jul 07, 2019 09:25
[2019-07-07 18:30] VITALS: BP 132/77
[2019-07-07] MEDS: cloNIDine 0.1 MG TAB PO SCH (20:15)
[2019-07-07] MEDS: NORTRIPTYLINE 25 MG CAP PO SCH (20:15)
[2019-07-07] MEDS: OLANZapine 5 MG TAB PO SCH (20:16)
[2019-07-07] MEDS: GABAPENTIN 100 MG CAP PO SCH (20:16)
[2019-07-07] MEDS: DIVALPROEX 250 MG TAB PO SCH (20:16)
[2019-07-07] MEDS: traZODone 50 MG TAB PO PRN (21:00)
[2019-07-08] MEDS: CYCLOBENZAPRINE 5MG TABLET PO SCH ×3 (05:54→21:05)
[2019-07-08] MEDS: LEVOTHYROXINE 75MCG TABLET (0.075MG) PO SCH (05:54)
[2019-07-08 06:39] VITALS: BP 119/75
[2019-07-08] MEDS: cloZAPine 100 MG TAB (S0136) PO SCH ×2 (08:05→21:09)
[2019-07-08] MEDS: TRIHEXYPHENIDYL 2 MG TAB PO SCH (08:05)
[2019-07-08] MEDS: BREXPIPRAZOLE 2MG TABLET (REXULTI) PO SCH (08:05)
[2019-07-08] MEDS: PILL CUTTER 1 EACH XX PRN (08:05)
[2019-07-08] MEDS: TIOTROPIUM INHALER/CAPSULE (SPIRIVA) INH SCH (08:06)
[2019-07-08] MEDS: DIVALPROEX 500 MG TAB PO SCH ×2 (08:06→21:07)
[2019-07-08] MEDS: NICOTINE POLACRILEX 2 MG GUM PO PRN ×3 (08:06→21:11)
[2019-07-08] MEDS: TAMSULOSIN 0.4 MG CAP PO SCH (08:06)
[2019-07-08] MEDS: PANTOPRAZOLE 40MG TAB (PROTONIX) PO SCH (08:06)
[2019-07-08] MEDS: DOCUSATE SODIUM 100 MG CAP PO SCH ×2 (08:06→21:09)
[2019-07-08] MEDS: MULTIVITAMINS/MINERALS THERAP 1 TAB PO SCH (08:06)
[2019-07-08 18:00] VITALS: BP 130/83
[2019-07-08] MEDS: NORTRIPTYLINE 25 MG CAP PO SCH (21:07)
[2019-07-08] MEDS: cloNIDine 0.1 MG TAB PO SCH (21:07)
[2019-07-08] MEDS: OLANZapine 5 MG TAB PO SCH (21:08)
[2019-07-08] MEDS: DIVALPROEX 250 MG TAB PO SCH (21:08)
[2019-07-08] MEDS: traZODone 50 MG TAB PO PRN (21:08)
[2019-07-08] MEDS: GABAPENTIN 100 MG CAP PO SCH (21:09)
[2019-07-09] MEDS: CYCLOBENZAPRINE 5MG TABLET PO SCH ×3 (06:23→21:08)
[2019-07-09] MEDS: LEVOTHYROXINE 75MCG TABLET (0.075MG) PO SCH (06:23)
[2019-07-09 06:41] VITALS: BP 123/74
[2019-07-09] MEDS: TIOTROPIUM INHALER/CAPSULE (SPIRIVA) INH SCH (07:34)
[2019-07-09] MEDS: NICOTINE POLACRILEX 2 MG GUM PO PRN ×3 (08:18→21:09)
[2019-07-09] MEDS: DIVALPROEX 500 MG TAB PO SCH ×2 (08:19→21:09)
[2019-07-09] MEDS: PILL CUTTER 1 EACH XX PRN (08:19)
[2019-07-09] MEDS: PANTOPRAZOLE 40MG TAB (PROTONIX) PO SCH (08:19)
[2019-07-09] MEDS: MULTIVITAMINS/MINERALS THERAP 1 TAB PO SCH (08:19)
[2019-07-09] MEDS: cloZAPine 100 MG TAB (S0136) PO SCH ×2 (08:19→21:09)
[2019-07-09] MEDS: TRIHEXYPHENIDYL 2 MG TAB PO SCH (08:19)
[2019-07-09] MEDS: BREXPIPRAZOLE 2MG TABLET (REXULTI) PO SCH (08:20)
[2019-07-09] MEDS: TAMSULOSIN 0.4 MG CAP PO SCH (08:21)
[2019-07-09] MEDS: DOCUSATE SODIUM 100 MG CAP PO SCH ×2 (08:21→21:09)
[2019-07-09] MEDS ORDERED: LORazepam 0.5 MG TAB PO ONE (12:45)
[2019-07-09 18:00] VITALS: BP 123/74
[2019-07-09] MEDS: DIVALPROEX 250 MG TAB PO SCH (21:09)
[2019-07-09] MEDS: GABAPENTIN 100 MG CAP PO SCH (21:09)
[2019-07-09] MEDS: cloNIDine 0.1 MG TAB PO SCH (21:09)
[2019-07-09] MEDS: OLANZapine 5 MG TAB PO SCH (21:09)
[2019-07-09] MEDS: traZODone 50 MG TAB PO PRN (21:09)
[2019-07-09] MEDS: NORTRIPTYLINE 25 MG CAP PO SCH (21:09)
[2019-07-10] MEDS: CYCLOBENZAPRINE 5MG TABLET PO SCH ×3 (05:57→20:55)
[2019-07-10] MEDS: LEVOTHYROXINE 75MCG TABLET (0.075MG) PO SCH (05:57)
[2019-07-10] MEDS: NICOTINE POLACRILEX 2 MG GUM PO PRN ×4 (05:57→20:58)
[2019-07-10 06:35] VITALS: BP 122/78
[2019-07-10] MEDS: TIOTROPIUM INHALER/CAPSULE (SPIRIVA) INH SCH (08:52)
[2019-07-10] MEDS: BREXPIPRAZOLE 2MG TABLET (REXULTI) PO SCH (08:55)
[2019-07-10] MEDS: TAMSULOSIN 0.4 MG CAP PO SCH (08:55)
[2019-07-10] MEDS: PANTOPRAZOLE 40MG TAB (PROTONIX) PO SCH (08:55)
[2019-07-10] MEDS: cloZAPine 100 MG TAB (S0136) PO SCH ×2 (08:56→20:55)
[2019-07-10] MEDS: DOCUSATE SODIUM 100 MG CAP PO SCH ×2 (08:56→20:55)
[2019-07-10] MEDS: DIVALPROEX 500 MG TAB PO SCH ×2 (08:56→20:55)
[2019-07-10] MEDS: MULTIVITAMINS/MINERALS THERAP 1 TAB PO SCH (08:56)
[2019-07-10] MEDS: TRIHEXYPHENIDYL 2 MG TAB PO SCH (08:56)
--- NOTE | 2019-07-10 11:17 | MHIPNPDOC ---
[facility] Progress Note Progress Note DATE OF SERVICE: 07/10/19 HISTORY: Patient is a 58 -year-old , male, with a history of schizoaffective d/o, multiple inpatient admits to [facility], multiple SA by OD/cutting/hanging who was brought to ED by [facility] after he reported to staff he was feeling depressed and suicidal with plan to cut himself per ED. In ED pt continued to endorse depression with SI and plan to cut himself for 3 days, cause unknown, insistent on being admitted [facility] for treatment of would "bleed out." He denied HI, hallucinations, delusions in the ED. VITAL SIGNS: See below. NEW TEST RESULTS: ANC 4659.3 wnl CURRENT MEDICATIONS: See below. MENTAL STATUS EXAMINATION: The patient is alert, oriented and cooperative. Affect remains flat. Volume of speech is still low. Mood is moderately depressed. Complaint of anxiety over going to [facility] in [place] over the weekend [place] a country [place]" per staff. He denies suicidal thoughts today. Auditory hallucinations are chronic and prominent. No signs of paranoia or thought disorder. Insight and judgment remain fair. No signs of organic deficits. DIAGNOSES: 1. Schizoaffective disorder, bipolar type. 2. Generalized anxiety disorder. ASSESSMENT:Pt seen and states he feels "alright" is finding his meds beneficial and tolerating them well. States he had some anxiety over the weekend about possibly going to [facility] in [place] "[place]" for intermediate treatment as he's never been there before and doesn't like cities. Spoke to pt about how there may be more treatment modalities available at [facility] due to it being in [place] and that new experiences can actually be good. Pt acknowledge improved thoughts about going after we spoke. Per staff pt complaining of urinary freq and he's already on flomax. Discussed this with pt and states he only gets up 1-2 times per night to urinate. Advised pt that that is normal (1 time/night) and not to worry about things that are most likely normal. No complaints today and stated ok. Encouraged if he likes he can drink less water at night. Continues to have chronic depression and AH that are low grade, in background, that are chronic. States he's been compliant on his medications. He denies SI/HI, CAH, VH, delusions today. Feels safe here. Continues to appear depressed but is up socializing with peers in the lounge and groups daily as he likes to daily. MANAGEMENT PLAN: continue plan. Awaiting transfer to [facility] intermediate treatment - Rexulti 2 mg every morning - clonidine 0.1 mg at bedtime - Depakote 1250 mg per day - gabapentin 100 mg at bedtime - nortriptyline 100 mg at bedtime - Zyprexa 15 mg at bedtime - clozapine 200 mg twice a day Vital Signs Vital Signs Date Time Temp Pulse Resp B/P (MAP) Pulse Ox O2 Delivery O2 Flow Rate FiO2 07/10/19 06:35 96.3 82 12 122/78 (93) Current Medications Current Medications Medications (Trade) Dose Ordered Sig/Billy Route PRN Reason Start Time Stop Time Status Last Admin Dose Admin Acetaminophen (Tylenol Tab) 650 mg Q6HP PRN PO HEADACHE or DISCOMFORT 06/26/19 19:30 Al Hydrox/Mg Hydrox/Simethicone (Mylanta) 30 ml Q4HP PRN PO HEARTBURN/INDIGESTION 06/26/19 19:30 Brexpiprazole (Rexulti) 1 mg DAILY PO 06/27/19 09:00 07/03/19 15:56 DC 07/03/19 08:25 Brexpiprazole (Rexulti) 2 mg DAILY PO 07/04/19 09:00 07/05/19 14:00 DC 07/05/19 08:16 Brexpiprazole (Rexulti) 3 mg DAILY PO 07/06/19 09:00 07/10/19 08:55 Clonidine HCl (Catapres) 0.1 mg QHS PO 06/27/19 21:00 07/09/19 21:09 Clozapine (Clozaril) 200 mg BID PO 06/27/19 09:00 07/10/19 08:56 Cyclobenzaprine HCl (Flexeril) 5 mg Q8H PO 06/27/19 14:00 07/10/19 05:57 Divalproex Sodium (Depakote) 250 mg QHS PO 06/27/19 21:00 07/09/19 21:09 Divalproex Sodium (Depakote) 500 mg BID PO 06/27/19 09:00 07/10/19 08:56 Docusate Sodium (Colace) 100 mg BID PO 06/27/19 09:00 07/10/19 08:56 Gabapentin (Neurontin) 100 mg QHS PO 06/27/19 21:00 07/09/19 21:09 Home Med (Med Rec Complete!) ASDIRECTED XX 06/26/19 19:00 06/26/19 19:00 DC Ibuprofen (Advil) 800 mg BID PRN PO PAIN 06/27/19 10:00 06/28/19 08:45 Levothyroxine Sodium (Synthroid) 75 mcg DAILY@0600 PO 06/27/19 06:00 07/10/19 05:57 Lorazepam (Ativan) 1 mg Q4HP PRN PO ANXIETY 07/01/19 15:15 07/08/19 15:14 DC 07/01/19 20:18 Magnesium Hydroxide (Milk Of Magnesia) 30 ml DAILYPRN PRN PO CONSTIPATION 06/26/19 19:30 Miscellaneous (Unresolved Clarification Entry) SEE LABEL COMMENTS DAILY XX 07/03/19 09:00 07/03/19 14:02 DC Miscellaneous (Unresolved Clarification Entry) SEE LABEL COMMENTS DAILY XX 07/09/19 09:00 07/09/19 15:20 DC Multivitamins (Theragram-M) 1 tab DAILY PO 06/27/19 09:00 07/10/19 08:56 Nicotine (Nicorette) 2 mg Q2HP PRN PO NICOTINE WITHDRAWAL 06/27/19 17:00 07/10/19 05:57 Non-Formulary Medication ( See Comment Field Below ) SEE COMMENTS SECTION 1T@10 XX 06/30/19 10:00 06/30/19 10:00 DC Non-Formulary Medication ( See Comment Field Below ) SEE LABEL COMMENTS DAILY XX 06/28/19 09:00 06/28/19 13:31 DC Nortriptyline HCl (Pamelor) 100 mg QHS PO 06/27/19 21:00 07/09/19 21:09 Olanzapine (ZyPREXA) 15 mg QHS PO 06/27/19 21:00 07/09/19 21:09 Pantoprazole Sodium (Protonix) 40 mg DAILY PO 06/27/19 09:00 07/10/19 08:55 Tamsulosin HCl (Flomax) 0.4 mg DAILY PO 06/27/19 09:00 07/10/19 08:55 Tiotropium [place] (Spiriva Handihaler) 1 inhalation DAILY@0800 INH 06/27/19 08:00 07/10/19 08:52 Trazodone HCl (Desyrel) 50 mg QHSP PRN PO INSOMNIA 06/26/19 19:30 07/09/19 21:09 Trihexyphenidyl HCl (Artane) 5 mg DAILY PO 06/27/19 09:00 07/10/19 08:56 Allergies Coded Allergies: haloperidol (Verified Adverse Reaction, Severe, EPS, Difficulty Breathing, 05/29/19) loxapine (Verified Adverse Reaction, Severe, Tounge protrsion, diff breathing, 05/29/19) lithium (Verified Adverse Reaction, Intermediate, speech problems, 05/29/19) JULIO SPENCE DO Jul 10, 2019 11:17 am
[2019-07-10 18:00] VITALS: BP 123/72
[2019-07-10] MEDS: OLANZapine 5 MG TAB PO SCH (20:54)
[2019-07-10] MEDS: NORTRIPTYLINE 25 MG CAP PO SCH (20:55)
[2019-07-10] MEDS: DIVALPROEX 250 MG TAB PO SCH (20:55)
[2019-07-10] MEDS: GABAPENTIN 100 MG CAP PO SCH (20:55)
[2019-07-10] MEDS: cloNIDine 0.1 MG TAB PO SCH (20:56)
[2019-07-10] MEDS: traZODone 50 MG TAB PO PRN (20:58)
[2019-07-11] MEDS: CYCLOBENZAPRINE 5MG TABLET PO SCH ×3 (05:57→20:59)
[2019-07-11] MEDS: LEVOTHYROXINE 75MCG TABLET (0.075MG) PO SCH (05:57)
[2019-07-11] MEDS: NICOTINE POLACRILEX 2 MG GUM PO PRN ×4 (05:59→21:02)
[2019-07-11 06:34] VITALS: BP 104/71
[2019-07-11] MEDS: MULTIVITAMINS/MINERALS THERAP 1 TAB PO SCH (08:18)
[2019-07-11] MEDS: DIVALPROEX 500 MG TAB PO SCH ×2 (08:18→21:02)
[2019-07-11] MEDS: TIOTROPIUM INHALER/CAPSULE (SPIRIVA) INH SCH (08:18)
[2019-07-11] MEDS: TAMSULOSIN 0.4 MG CAP PO SCH (08:18)
[2019-07-11] MEDS: BREXPIPRAZOLE 2MG TABLET (REXULTI) PO SCH (08:18)
[2019-07-11] MEDS: PANTOPRAZOLE 40MG TAB (PROTONIX) PO SCH (08:18)
[2019-07-11] MEDS: DOCUSATE SODIUM 100 MG CAP PO SCH ×2 (08:18→21:02)
[2019-07-11] MEDS: cloZAPine 100 MG TAB (S0136) PO SCH ×2 (08:18→21:02)
[2019-07-11] MEDS: TRIHEXYPHENIDYL 2 MG TAB PO SCH (08:19)
--- NOTE | 2019-07-11 09:36 | MHIPNPDOC ---
[facility] Progress Note Progress Note DATE OF SERVICE: 07/11/19 HISTORY: Patient is a 58 -year-old , male, with a history of schizoaffective d/o, multiple inpatient admits to [facility], multiple SA by OD/cutting/hanging who was brought to ED by [facility] after he reported to staff he was feeling depressed and suicidal with plan to cut himself per ED. In ED pt continued to endorse depression with SI and plan to cut himself for 3 days, cause unknown, insistent on being admitted [facility] for treatment of would "bleed out." He denied HI, hallucinations, delusions in the ED. VITAL SIGNS: See below. NEW TEST RESULTS: ANC 4659.3 wnl CURRENT MEDICATIONS: See below. MENTAL STATUS EXAMINATION: The patient is alert, oriented and cooperative. Affect remains flat. Volume of speech is still low. Mood is moderately depressed. Complaint of anxiety over going to [facility] in [place] over the weekend "[place]... [place]'m a country [place]" per staff. He denies suicidal thoughts today. Auditory hallucinations are chronic and prominent. No signs of paranoia or thought disorder. Insight and judgment remain fair. No signs of organic deficits. DIAGNOSES: 1. Schizoaffective disorder, bipolar type. 2. Generalized anxiety disorder. ASSESSMENT:Pt seen and states he feels "alright" is finding his meds beneficial and tolerating them well. States he continues to have anxiety over about going to [facility] in [place] for senior living treatment as he's never been there before, doesn't like cities, and would prefer to go to [facility] that he was refused from due to not being in acute treatment long enough as he's been there before. Continued to speak to pt about how there may be more treatment modalities available at [facility] due to it being in [place] and that new experiences can actually be good. Stated "ok". Will start vistaril prn anxiety to aid pt. No complaints of urinary freq today. Continues to have chronic depression and AH that are low grade, in background, that are chronic. States he's been compliant on his medications. He denies SI/HI, CAH, VH, delusions today. Feels safe here. Continues to appear depressed but is up socializing with peers in the lounge and groups daily as he likes to daily. MANAGEMENT PLAN: continue plan. Awaiting transfer to [facility] senior living treatment. Add vistaril 50mg q6hr prn anxiety - Rexulti 2 mg every morning - clonidine 0.1 mg at bedtime - Depakote 1250 mg per day - gabapentin 100 mg at bedtime - nortriptyline 100 mg at bedtime - Zyprexa 15 mg at bedtime - clozapine 200 mg twice a day -vistaril 50mg q6hr prn anxiety Vital Signs Vital Signs Date Time Temp Pulse Resp B/P (MAP) Pulse Ox O2 Delivery O2 Flow Rate FiO2 07/11/19 06:34 96.2 95 18 104/71 (82) Current Medications Current Medications Medications (Trade) Dose Ordered Sig/Billy Route PRN Reason Start Time Stop Time Status Last Admin Dose Admin Acetaminophen (Tylenol Tab) 650 mg Q6HP PRN PO HEADACHE or DISCOMFORT 06/26/19 19:30 Al Hydrox/Mg Hydrox/Simethicone (Mylanta) 30 ml Q4HP PRN PO HEARTBURN/INDIGESTION 06/26/19 19:30 Brexpiprazole (Rexulti) 1 mg DAILY PO 06/27/19 09:00 07/03/19 15:56 DC 07/03/19 08:25 Brexpiprazole (Rexulti) 2 mg DAILY PO 07/04/19 09:00 07/05/19 14:00 DC 07/05/19 08:16 Brexpiprazole (Rexulti) 3 mg DAILY PO 07/06/19 09:00 07/11/19 08:18 Clonidine HCl (Catapres) 0.1 mg QHS PO 06/27/19 21:00 07/10/19 20:56 Clozapine (Clozaril) 200 mg BID PO 06/27/19 09:00 07/11/19 08:18 Cyclobenzaprine HCl (Flexeril) 5 mg Q8H PO 06/27/19 14:00 07/11/19 05:57 Divalproex Sodium (Depakote) 250 mg QHS PO 06/27/19 21:00 07/10/19 20:55 Divalproex Sodium (Depakote) 500 mg BID PO 06/27/19 09:00 07/11/19 08:18 Docusate Sodium (Colace) 100 mg BID PO 06/27/19 09:00 07/11/19 08:18 Gabapentin (Neurontin) 100 mg QHS PO 06/27/19 21:00 07/10/19 20:55 Home Med (Med Rec Complete!) ASDIRECTED XX 06/26/19 19:00 06/26/19 19:00 DC Ibuprofen (Advil) 800 mg BID PRN PO PAIN 06/27/19 10:00 06/28/19 08:45 Levothyroxine Sodium (Synthroid) 75 mcg DAILY@0600 PO 06/27/19 06:00 07/11/19 05:57 Lorazepam (Ativan) 1 mg Q4HP PRN PO ANXIETY 07/01/19 15:15 07/08/19 15:14 DC 07/01/19 20:18 Magnesium Hydroxide (Milk Of Magnesia) 30 ml DAILYPRN PRN PO CONSTIPATION 06/26/19 19:30 Miscellaneous (Unresolved Clarification Entry) SEE LABEL COMMENTS DAILY XX 07/03/19 09:00 07/03/19 14:02 DC Miscellaneous (Unresolved Clarification Entry) SEE LABEL COMMENTS DAILY XX 07/09/19 09:00 07/09/19 15:20 DC Multivitamins (Theragram-M) 1 tab DAILY PO 06/27/19 09:00 07/11/19 08:18 Nicotine (Nicorette) 2 mg Q2HP PRN PO NICOTINE WITHDRAWAL 06/27/19 17:00 07/11/19 05:59 Non-Formulary Medication ( See Comment Field Below ) SEE COMMENTS SECTION 1T@10 XX 06/30/19 10:00 06/30/19 10:00 DC Non-Formulary Medication ( See Comment Field Below ) SEE LABEL COMMENTS DAILY XX 06/28/19 09:00 06/28/19 13:31 DC Nortriptyline HCl (Pamelor) 100 mg QHS PO 06/27/19 21:00 07/10/19 20:55 Olanzapine (ZyPREXA) 15 mg QHS PO 06/27/19 21:00 07/10/19 20:54 Pantoprazole Sodium (Protonix) 40 mg DAILY PO 06/27/19 09:00 07/11/19 08:18 Tamsulosin HCl (Flomax) 0.4 mg DAILY PO 06/27/19 09:00 07/11/19 08:18 Tiotropium [place] (Spiriva Handihaler) 1 inhalation DAILY@0800 INH 06/27/19 08:00 07/11/19 08:18 Trazodone HCl (Desyrel) 50 mg QHSP PRN PO INSOMNIA 06/26/19 19:30 07/10/19 20:58 Trihexyphenidyl HCl (Artane) 5 mg DAILY PO 06/27/19 09:00 07/11/19 08:19 Allergies Coded Allergies: haloperidol (Verified Adverse Reaction, Severe, EPS, Difficulty Breathing, 05/29/19) loxapine (Verified Adverse Reaction, Severe, Tounge protrsion, diff breathing, 05/29/19) lithium (Verified Adverse Reaction, Intermediate, speech problems, 05/29/19) JULIO SPENCE DO Jul 11, 2019 9:36 am
[2019-07-11] MEDS ORDERED: hydrOXYzine 50 MG TAB PO PRN (09:45)
[2019-07-11 18:00] VITALS: BP 126/76
[2019-07-11] MEDS: NORTRIPTYLINE 25 MG CAP PO SCH (21:01)
[2019-07-11] MEDS: cloNIDine 0.1 MG TAB PO SCH (21:01)
[2019-07-11] MEDS: OLANZapine 5 MG TAB PO SCH (21:02)
[2019-07-11] MEDS: GABAPENTIN 100 MG CAP PO SCH (21:02)
[2019-07-11] MEDS: DIVALPROEX 250 MG TAB PO SCH (21:02)
[2019-07-11] MEDS: traZODone 50 MG TAB PO PRN (21:02)
[2019-07-12] MEDS: CYCLOBENZAPRINE 5MG TABLET PO SCH ×3 (05:55→21:24)
[2019-07-12] MEDS: MAALOX 30 ML SUSP *UDC PO PRN (05:55)
[2019-07-12] MEDS: LEVOTHYROXINE 75MCG TABLET (0.075MG) PO SCH (05:55)
[2019-07-12 06:16] VITALS: BP 118/71
[2019-07-12] MEDS: TAMSULOSIN 0.4 MG CAP PO SCH (08:43)
[2019-07-12] MEDS: TIOTROPIUM INHALER/CAPSULE (SPIRIVA) INH SCH (08:43)
[2019-07-12] MEDS: PANTOPRAZOLE 40MG TAB (PROTONIX) PO SCH ×2 (08:43→21:25)
[2019-07-12] MEDS: DIVALPROEX 500 MG TAB PO SCH ×2 (08:43→21:25)
[2019-07-12] MEDS: DOCUSATE SODIUM 100 MG CAP PO SCH ×2 (08:43→21:25)
[2019-07-12] MEDS: MULTIVITAMINS/MINERALS THERAP 1 TAB PO SCH (08:43)
[2019-07-12] MEDS: BREXPIPRAZOLE 2MG TABLET (REXULTI) PO SCH (08:44)
[2019-07-12] MEDS: TRIHEXYPHENIDYL 2 MG TAB PO SCH (08:44)
[2019-07-12] MEDS: cloZAPine 100 MG TAB (S0136) PO SCH ×2 (08:44→21:24)
[2019-07-12] MEDS: NICOTINE POLACRILEX 2 MG GUM PO PRN ×6 (08:48→21:23)
--- NOTE | 2019-07-12 10:18 | MHIPNPDOC ---
[facility] Progress Note Progress Note DATE OF SERVICE: 07/12/19 HISTORY: Patient is a 58 -year-old , male, with a history of schizoaffective d/o, multiple inpatient admits to [facility], multiple SA by OD/cutting/hanging who was brought to ED by [facility] after he reported to staff he was feeling depressed and suicidal with plan to cut himself per ED. In ED pt continued to endorse depression with SI and plan to cut himself for 3 days, cause unknown, insistent on being admitted [facility] for treatment of would "bleed out." He denied HI, hallucinations, delusions in the ED. VITAL SIGNS: See below. NEW TEST RESULTS: ANC 4659.3 wnl CURRENT MEDICATIONS: See below. MENTAL STATUS EXAMINATION: Roughly no change from yesterday The patient is alert, oriented and cooperative. Affect remains flat. Volume of speech is still low. Mood is moderately depressed. Continues to endorse anxiety over going to [facility] in [place] city... [place] a country boy." He denies suicidal thoughts today. Auditory hallucinations are chronic and prominent. No signs of paranoia or thought disorder. Insight and judgment remain fair. No signs of organic deficits. DIAGNOSES: 1. Schizoaffective disorder, bipolar type. 2. Generalized anxiety disorder. ASSESSMENT:Pt seen and states he feels "ok" is finding his meds beneficial and tolerating them well. States he continues to have anxiety over about going to [facility] in [place] for shelter treatment as he's never been there before, doesn't like cities, and would prefer to go to [facility] that he was refused from due to not being in acute treatment long enough as he's been there before as stated in yesterday's note. Continued to speak to pt about how there may be more treatment modalities (ECT which I didn't mention to the pt) available at [facility] due to it being in [place] and that new experiences can actually be good. Stated "ok". States vistaril is beneficial for anxiety. No complaints of urinary freq today. Complaint of waking up with acid reflex in the morning and advised we can change his protonix to bid to prevent morning acid reflux which he states he'd like. Continues to have chronic depression and AH that are low grade, in background, that are chronic. States he's been compliant on his medications. He denies SI/HI, CAH, VH, delusions today. Feels safe here. Continues to appear depressed but is up socializing with peers in the lounge and groups daily as he likes to daily. MANAGEMENT PLAN: continue plan. Awaiting transfer to [facility] terminal worker treatment. Change protonix to bid for morning acid reflux - Rexulti 2 mg every morning - clonidine 0.1 mg at bedtime - Depakote 1250 mg per day - gabapentin 100 mg at bedtime - nortriptyline 100 mg at bedtime - Zyprexa 15 mg at bedtime - clozapine 200 mg twice a day -vistaril 50mg q6hr prn anxiety -protonix 40mg bid Vital Signs Vital Signs Date Time Temp Pulse Resp B/P (MAP) Pulse Ox O2 Delivery O2 Flow Rate FiO2 07/12/19 06:16 98.5 98 18 118/71 (87) Current Medications Current Medications Medications (Trade) Dose Ordered Sig/Billy Route PRN Reason Start Time Stop Time Status Last Admin Dose Admin Acetaminophen (Tylenol Tab) 650 mg Q6HP PRN PO HEADACHE or DISCOMFORT 06/26/19 19:30 Al Hydrox/Mg Hydrox/Simethicone (Mylanta) 30 ml Q4HP PRN PO HEARTBURN/INDIGESTION 06/26/19 19:30 07/12/19 05:55 Brexpiprazole (Rexulti) 1 mg DAILY PO 06/27/19 09:00 07/03/19 15:56 DC 07/03/19 08:25 Brexpiprazole (Rexulti) 2 mg DAILY PO 07/04/19 09:00 07/05/19 14:00 DC 07/05/19 08:16 Brexpiprazole (Rexulti) 3 mg DAILY PO 07/06/19 09:00 07/11/19 08:18 Clonidine HCl (Catapres) 0.1 mg QHS PO 06/27/19 21:00 07/11/19 21:01 Clozapine (Clozaril) 200 mg BID PO 06/27/19 09:00 07/11/19 21:02 Cyclobenzaprine HCl (Flexeril) 5 mg Q8H PO 06/27/19 14:00 07/12/19 05:55 Divalproex Sodium (Depakote) 250 mg QHS PO 06/27/19 21:00 07/11/19 21:02 Divalproex Sodium (Depakote) 500 mg BID PO 06/27/19 09:00 07/11/19 21:02 Docusate Sodium (Colace) 100 mg BID PO 06/27/19 09:00 07/11/19 21:02 Gabapentin (Neurontin) 100 mg QHS PO 06/27/19 21:00 07/11/19 21:02 Home Med (Med Rec Complete!) ASDIRECTED XX 06/26/19 19:00 06/26/19 19:00 DC Hydroxyzine HCl (Atarax) 50 mg Q6HP PRN PO ANXIETY/AGITATION 07/11/19 09:45 Ibuprofen (Advil) 800 mg BID PRN PO PAIN 06/27/19 10:00 06/28/19 08:45 Levothyroxine Sodium (Synthroid) 75 mcg DAILY@0600 PO 06/27/19 06:00 07/12/19 05:55 Lorazepam (Ativan) 1 mg Q4HP PRN PO ANXIETY 07/01/19 15:15 07/08/19 15:14 DC 07/01/19 20:18 Magnesium Hydroxide (Milk Of Magnesia) 30 ml DAILYPRN PRN PO CONSTIPATION 06/26/19 19:30 Miscellaneous (Unresolved Clarification Entry) SEE LABEL COMMENTS DAILY XX 07/03/19 09:00 07/03/19 14:02 DC Miscellaneous (Unresolved Clarification Entry) SEE LABEL COMMENTS DAILY XX 07/09/19 09:00 07/09/19 15:20 DC Multivitamins (Theragram-M) 1 tab DAILY PO 06/27/19 09:00 07/11/19 08:18 Nicotine (Nicorette) 2 mg Q2HP PRN PO NICOTINE WITHDRAWAL 06/27/19 17:00 07/11/19 21:02 Non-Formulary Medication ( See Comment Field Below ) SEE COMMENTS SECTION 1T@10 XX 06/30/19 10:00 06/30/19 10:00 DC Non-Formulary Medication ( See Comment Field Below ) SEE LABEL COMMENTS DAILY XX 06/28/19 09:00 06/28/19 13:31 DC Nortriptyline HCl (Pamelor) 100 mg QHS PO 06/27/19 21:00 07/11/19 21:01 Olanzapine (ZyPREXA) 15 mg QHS PO 06/27/19 21:00 07/11/19 21:02 Pantoprazole Sodium (Protonix) 40 mg DAILY PO 06/27/19 09:00 07/11/19 08:18 Tamsulosin HCl (Flomax) 0.4 mg DAILY PO 06/27/19 09:00 07/11/19 08:18 Tiotropium [place] (Spiriva Handihaler) 1 inhalation DAILY@0800 INH 06/27/19 08:00 07/11/19 08:18 Trazodone HCl (Desyrel) 50 mg QHSP PRN PO INSOMNIA 06/26/19 19:30 07/11/19 21:02 Trihexyphenidyl HCl (Artane) 5 mg DAILY PO 06/27/19 09:00 07/11/19 08:19 Allergies Coded Allergies: haloperidol (Verified Adverse Reaction, Severe, EPS, Difficulty Breathing, 05/29/19) loxapine (Verified Adverse Reaction, Severe, Tounge protrsion, diff breathing, 05/29/19) lithium (Verified Adverse Reaction, Intermediate, speech problems, ) JULIO SPENCE DO Jul 12, 2019 8:48 am
[2019-07-12 19:00] VITALS: BP 115/70
[2019-07-12] MEDS: NORTRIPTYLINE 25 MG CAP PO SCH (21:24)
[2019-07-12] MEDS: OLANZapine 5 MG TAB PO SCH (21:25)
[2019-07-12] MEDS: traZODone 50 MG TAB PO PRN (21:25)
[2019-07-12] MEDS: DIVALPROEX 250 MG TAB PO SCH (21:25)
[2019-07-12] MEDS: GABAPENTIN 100 MG CAP PO SCH (21:26)
[2019-07-12] MEDS: cloNIDine 0.1 MG TAB PO SCH (21:26)
[2019-07-13] MEDS: CYCLOBENZAPRINE 5MG TABLET PO SCH ×3 (06:15→21:01)
[2019-07-13] MEDS: LEVOTHYROXINE 75MCG TABLET (0.075MG) PO SCH (06:15)
[2019-07-13 06:37] VITALS: BP 102/68
[2019-07-13] MEDS: NICOTINE POLACRILEX 2 MG GUM PO PRN ×5 (08:45→21:01)
[2019-07-13] MEDS: MULTIVITAMINS/MINERALS THERAP 1 TAB PO SCH (08:45)
[2019-07-13] MEDS: PANTOPRAZOLE 40MG TAB (PROTONIX) PO SCH ×2 (08:45→21:01)
[2019-07-13] MEDS: DIVALPROEX 500 MG TAB PO SCH ×2 (08:45→21:01)
[2019-07-13] MEDS: DOCUSATE SODIUM 100 MG CAP PO SCH ×2 (08:45→21:00)
[2019-07-13] MEDS: cloZAPine 100 MG TAB (S0136) PO SCH ×2 (08:46→21:01)
[2019-07-13] MEDS: BREXPIPRAZOLE 2MG TABLET (REXULTI) PO SCH (08:46)
[2019-07-13] MEDS: TRIHEXYPHENIDYL 2 MG TAB PO SCH (08:46)
[2019-07-13] MEDS: TAMSULOSIN 0.4 MG CAP PO SCH (08:46)
[2019-07-13] MEDS: TIOTROPIUM INHALER/CAPSULE (SPIRIVA) INH SCH (08:49)
--- NOTE | 2019-07-13 09:39 | MHIPNPDOC ---
[facility] Progress Note Progress Note DATE OF SERVICE: 07/13/19 HISTORY: Patient is a 58 -year-old , male, with a history of schizoaffective d/o, multiple inpatient admits to [facility], multiple SA by OD/cutting/hanging who was brought to ED by [facility] after he reported to staff he was feeling depressed and suicidal with plan to cut himself per ED. In ED pt continued to endorse depression with SI and plan to cut himself for 3 days, cause unknown, insistent on being admitted [facility] for treatment of would "bleed out." He denied HI, hallucinations, delusions in the ED. VITAL SIGNS: See below. NEW TEST RESULTS: ANC 4659.3 wnl CURRENT MEDICATIONS: See below. MENTAL STATUS EXAMINATION: Roughly no change from yesterday The patient is alert, oriented and cooperative. Affect remains flat. Volume of speech is still low. Mood is moderately depressed. Continues to endorse anxiety over going to [facility] in [place] He denies suicidal thoughts today. Auditory hallucinations are chronic and prominent. No signs of paranoia or thought disorder. Insight and judgment remain fair. No signs of organic deficits. DIAGNOSES: 1. Schizoaffective disorder, bipolar type. 2. Generalized anxiety disorder. ASSESSMENT:Pt seen and states he feels "alright" is finding his meds beneficial and tolerating them well. States his anxiety is improved over about going to [facility] in [place] for senior living treatment as he's never been there before. Have spoke to pt numerous times about how there may be more treatment modalities (ECT which I didn't mention to the pt) available at [facility] due to it being in [place] and that new experiences can actually be good. States vistaril is beneficial for anxiety. No complaints of urinary freq or morning acid reflux today. Continues to have chronic depression and AH that are low grade, in background, that are chronic. States he's been compliant on his medications. He denies SI/HI, CAH, VH, delusions today. Feels safe here. Continues to appear depressed but is up socializing with peers in the lounge and groups daily as he likes to daily. MANAGEMENT PLAN: continue plan. 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 - Rexulti 2 mg every morning - clonidine 0.1 mg at bedtime - Depakote 1250 mg per day - gabapentin 100 mg at bedtime - nortriptyline 100 mg at bedtime - Zyprexa 15 mg at bedtime - clozapine 200 mg twice a day -vistaril 50mg q6hr prn anxiety -protonix 40mg bid Vital Signs Vital Signs Date Time Temp Pulse Resp B/P (MAP) Pulse Ox O2 Delivery O2 Flow Rate FiO2 07/13/19 08:18 Room Air 07/13/19 06:37 97.6 88 12 102/68 (79) Current Medications Current Medications Medications (Trade) Dose Ordered Sig/Billy Route PRN Reason Start Time Stop Time Status Last Admin Dose Admin Acetaminophen (Tylenol Tab) 650 mg Q6HP PRN PO HEADACHE or DISCOMFORT 06/26/19 19:30 Al Hydrox/Mg Hydrox/Simethicone (Mylanta) 30 ml Q4HP PRN PO HEARTBURN/INDIGESTION 06/26/19 19:30 07/12/19 05:55 Brexpiprazole (Rexulti) 1 mg DAILY PO 06/27/19 09:00 07/03/19 15:56 DC 07/03/19 08:25 Brexpiprazole (Rexulti) 2 mg DAILY PO 07/04/19 09:00 07/05/19 14:00 DC 07/05/19 08:16 Brexpiprazole (Rexulti) 3 mg DAILY PO 07/06/19 09:00 07/13/19 08:46 Clonidine HCl (Catapres) 0.1 mg QHS PO 06/27/19 21:00 07/12/19 21:26 Clozapine (Clozaril) 200 mg BID PO 06/27/19 09:00 07/13/19 08:46 Cyclobenzaprine HCl (Flexeril) 5 mg Q8H PO 06/27/19 14:00 07/13/19 06:15 Divalproex Sodium (Depakote) 250 mg QHS PO 06/27/19 21:00 07/12/19 21:25 Divalproex Sodium (Depakote) 500 mg BID PO 06/27/19 09:00 07/13/19 08:45 Docusate Sodium (Colace) 100 mg BID PO 06/27/19 09:00 07/13/19 08:45 Gabapentin (Neurontin) 100 mg QHS PO 06/27/19 21:00 07/12/19 21:26 Home Med (Med Rec Complete!) ASDIRECTED XX 06/26/19 19:00 06/26/19 19:00 DC Hydroxyzine HCl (Atarax) 50 mg Q6HP PRN PO ANXIETY/AGITATION 07/11/19 09:45 Ibuprofen (Advil) 800 mg BID PRN PO PAIN 06/27/19 10:00 06/28/19 08:45 Levothyroxine Sodium (Synthroid) 75 mcg DAILY@0600 PO 06/27/19 06:00 07/13/19 06:15 Lorazepam (Ativan) 1 mg Q4HP PRN PO ANXIETY 07/01/19 15:15 07/08/19 15:14 DC 07/01/19 20:18 Magnesium Hydroxide (Milk Of Magnesia) 30 ml DAILYPRN PRN PO CONSTIPATION 06/26/19 19:30 Miscellaneous (Unresolved Clarification Entry) SEE LABEL COMMENTS DAILY XX 07/03/19 09:00 07/03/19 14:02 DC Miscellaneous (Unresolved Clarification Entry) SEE LABEL COMMENTS DAILY XX 07/09/19 09:00 07/09/19 15:20 DC Multivitamins (Theragram-M) 1 tab DAILY PO 06/27/19 09:00 07/13/19 08:45 Nicotine (Nicorette) 2 mg Q2HP PRN PO NICOTINE WITHDRAWAL 06/27/19 17:00 07/13/19 08:45 Non-Formulary Medication ( See Comment Field Below ) SEE COMMENTS SECTION 1T@10 XX 06/30/19 10:00 06/30/19 10:00 DC Non-Formulary Medication ( See Comment Field Below ) SEE LABEL COMMENTS DAILY XX 06/28/19 09:00 06/28/19 13:31 DC Nortriptyline HCl (Pamelor) 100 mg QHS PO 06/27/19 21:00 07/12/19 21:24 Olanzapine (ZyPREXA) 15 mg QHS PO 06/27/19 21:00 07/12/19 21:25 Pantoprazole Sodium (Protonix) 40 mg BID PO 07/12/19 21:00 07/13/19 08:45 Pantoprazole Sodium (Protonix) 40 mg DAILY PO 06/27/19 09:00 07/12/19 10:18 DC 07/12/19 08:43 Tamsulosin HCl (Flomax) 0.4 mg DAILY PO 06/27/19 09:00 07/13/19 08:46 Tiotropium [place] (Spiriva Handihaler) 1 inhalation DAILY@0800 INH 06/27/19 08:00 07/13/19 08:49 Trazodone HCl (Desyrel) 50 mg QHSP PRN PO INSOMNIA 06/26/19 19:30 07/12/19 21:25 Trihexyphenidyl HCl (Artane) 5 mg DAILY PO 06/27/19 09:00 07/13/19 08:46 Allergies Coded Allergies: haloperidol (Verified Adverse Reaction, Severe, EPS, Difficulty Breathing, 05/29/19) loxapine (Verified Adverse Reaction, Severe, Tounge protrsion, diff breathing, 05/29/19) lithium (Verified Adverse Reaction, Intermediate, speech problems, 05/29/19) JULIO SPENCE DO Jul 13, 2019 9:39 am
[2019-07-13 18:00] VITALS: BP 126/90
[2019-07-13] MEDS: NORTRIPTYLINE 25 MG CAP PO SCH (21:00)
[2019-07-13] MEDS: traZODone 50 MG TAB PO PRN (21:01)
[2019-07-13] MEDS: GABAPENTIN 100 MG CAP PO SCH (21:01)
[2019-07-13] MEDS: DIVALPROEX 250 MG TAB PO SCH (21:01)
[2019-07-13] MEDS: cloNIDine 0.1 MG TAB PO SCH (21:01)
[2019-07-13] MEDS: OLANZapine 5 MG TAB PO SCH (21:02)
[2019-07-14] MEDS: LEVOTHYROXINE 75MCG TABLET (0.075MG) PO SCH (05:50)
[2019-07-14] MEDS: NICOTINE POLACRILEX 2 MG GUM PO PRN ×6 (05:50→21:02)
[2019-07-14] MEDS: CYCLOBENZAPRINE 5MG TABLET PO SCH ×3 (05:50→20:59)
[2019-07-14 06:38] VITALS: BP 126/77
[2019-07-14] MEDS: TIOTROPIUM INHALER/CAPSULE (SPIRIVA) INH SCH (08:26)
[2019-07-14] MEDS: TAMSULOSIN 0.4 MG CAP PO SCH (08:26)
[2019-07-14] MEDS: PANTOPRAZOLE 40MG TAB (PROTONIX) PO SCH ×2 (08:26→20:59)
[2019-07-14] MEDS: BREXPIPRAZOLE 2MG TABLET (REXULTI) PO SCH (08:26)
[2019-07-14] MEDS: TRIHEXYPHENIDYL 2 MG TAB PO SCH (08:26)
[2019-07-14] MEDS: DIVALPROEX 500 MG TAB PO SCH ×2 (08:26→21:00)
[2019-07-14] MEDS: DOCUSATE SODIUM 100 MG CAP PO SCH ×2 (08:26→21:00)
[2019-07-14] MEDS: MULTIVITAMINS/MINERALS THERAP 1 TAB PO SCH (08:26)
--- NOTE | 2019-07-14 08:41 | MHIPNPDOC ---
[facility] Progress Note Progress Note DATE OF SERVICE: 07/14/19 HISTORY: Patient is a 58 -year-old , male, with a history of schizoaffective d/o, multiple inpatient admits to [facility], multiple SA by OD/cutting/hanging who was brought to ED by [facility] after he reported to staff he was feeling depressed and suicidal with plan to cut himself per ED. In ED pt continued to endorse depression with SI and plan to cut himself for 3 days, cause unknown, insistent on being admitted [facility] for treatment of would "bleed out." He denied HI, hallucinations, delusions in the ED. VITAL SIGNS: See below. NEW TEST RESULTS: ANC 4659.3 wnl CURRENT MEDICATIONS: See below. MENTAL STATUS EXAMINATION: Roughly no change from yesterday The patient is alert, oriented and cooperative. Affect remains flat. Volume of speech is still low. Mood is moderately depressed. Improved anxiety over going to [facility] in [place] He denies suicidal thoughts today. Auditory hallucinations are chronic and prominent. No signs of paranoia or thought disorder. Insight and judgment remain fair. No signs of organic deficits. DIAGNOSES: 1. Schizoaffective disorder, bipolar type. 2. Generalized anxiety disorder. ASSESSMENT:Roughly no change from yesterday. Pt seen and states he feels "ok"today and is finding his meds beneficial and tolerating them well. 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 Have spoken to pt numerous times about how there may be more treatment modalities (ECT which I didn't mention to the pt) available at [facility] due to it being in [place] and that new experiences can actually be good. States vistaril is beneficial for anxiety. No complaints of urinary freq or morning acid reflux today. Continues to have chronic depression and AH that are low grade, in background, that are chronic. States he's been compliant on his medications. He denies SI/HI, CAH, VH, delusions today. Feels safe here. Continues to appear overall depressed but is up socializing with peers in the lounge and groups daily as he likes to daily. MANAGEMENT PLAN: continue plan. Awaiting transfer to [facility] shelter tr eatment. - Rexulti 2 mg every morning - clonidine 0.1 mg at bedtime - Depakote 1250 mg per day - gabapentin 100 mg at bedtime - nortriptyline 100 mg at bedtime - Zyprexa 15 mg at bedtime - clozapine 200 mg twice a day -vistaril 50mg q6hr prn anxiety -protonix 40mg bid Vital Signs Vital Signs Date Time Temp Pulse Resp B/P (MAP) Pulse Ox O2 Delivery O2 Flow Rate FiO2 07/14/19 06:38 98.2 86 12 126/77 (93) 07/13/19 08:18 Room Air Current Medications Current Medications Medications (Trade) Dose Ordered Sig/Billy Route PRN Reason Start Time Stop Time Status Last Admin Dose Admin Acetaminophen (Tylenol Tab) 650 mg Q6HP PRN PO HEADACHE or DISCOMFORT 06/26/19 19:30 Al Hydrox/Mg Hydrox/Simethicone (Mylanta) 30 ml Q4HP PRN PO HEARTBURN/INDIGESTION 06/26/19 19:30 07/12/19 05:55 Brexpiprazole (Rexulti) 1 mg DAILY PO 06/27/19 09:00 07/03/19 15:56 DC 07/03/19 08:25 Brexpiprazole (Rexulti) 2 mg DAILY PO 07/04/19 09:00 07/05/19 14:00 DC 07/05/19 08:16 Brexpiprazole (Rexulti) 3 mg DAILY PO 07/06/19 09:00 07/14/19 08:26 Clonidine HCl (Catapres) 0.1 mg QHS PO 06/27/19 21:00 07/13/19 21:01 Clozapine (Clozaril) 200 mg BID PO 06/27/19 09:00 07/13/19 21:01 Cyclobenzaprine HCl (Flexeril) 5 mg Q8H PO 06/27/19 14:00 07/14/19 05:50 Divalproex Sodium (Depakote) 250 mg QHS PO 06/27/19 21:00 07/13/19 21:01 Divalproex Sodium (Depakote) 500 mg BID PO 06/27/19 09:00 07/14/19 08:26 Docusate Sodium (Colace) 100 mg BID PO 06/27/19 09:00 07/14/19 08:26 Gabapentin (Neurontin) 100 mg QHS PO 06/27/19 21:00 07/13/19 21:01 Home Med (Med Rec Complete!) ASDIRECTED XX 06/26/19 19:00 06/26/19 19:00 DC Hydroxyzine HCl (Atarax) 50 mg Q6HP PRN PO ANXIETY/AGITATION 07/11/19 09:45 Ibuprofen (Advil) 800 mg BID PRN PO PAIN 06/27/19 10:00 06/28/19 08:45 Levothyroxine Sodium (Synthroid) 75 mcg DAILY@0600 PO 06/27/19 06:00 07/14/19 05:50 Lorazepam (Ativan) 1 mg Q4HP PRN PO ANXIETY 07/01/19 15:15 07/08/19 15:14 DC 07/01/19 20:18 Magnesium Hydroxide (Milk Of Magnesia) 30 ml DAILYPRN PRN PO CONSTIPATION 06/26/19 19:30 Miscellaneous (Unresolved Clarification Entry) SEE LABEL COMMENTS DAILY XX 07/03/19 09:00 07/03/19 14:02 DC Miscellaneous (Unresolved Clarification Entry) SEE LABEL COMMENTS DAILY XX 07/09/19 09:00 07/09/19 15:20 DC Multivitamins (Theragram-M) 1 tab DAILY PO 06/27/19 09:00 07/14/19 08:26 Nicotine (Nicorette) 2 mg Q2HP PRN PO NICOTINE WITHDRAWAL 06/27/19 17:00 07/14/19 08:27 Non-Formulary Medication ( See Comment Field Below ) SEE COMMENTS SECTION 1T@10 XX 06/30/19 10:00 06/30/19 10:00 DC Non-Formulary Medication ( See Comment Field Below ) SEE LABEL COMMENTS DAILY XX 06/28/19 09:00 06/28/19 13:31 DC Nortriptyline HCl (Pamelor) 100 mg QHS PO 06/27/19 21:00 07/13/19 21:00 Olanzapine (ZyPREXA) 15 mg QHS PO 06/27/19 21:00 07/13/19 21:02 Pantoprazole Sodium (Protonix) 40 mg BID PO 07/12/19 21:00 07/14/19 08:26 Pantoprazole Sodium (Protonix) 40 mg DAILY PO 06/27/19 09:00 07/12/19 10:18 DC 07/12/19 08:43 Tamsulosin HCl (Flomax) 0.4 mg DAILY PO 06/27/19 09:00 07/14/19 08:26 Tiotropium [place] (Spiriva Handihaler) 1 inhalation DAILY@0800 INH 06/27/19 08:00 07/14/19 08:26 Trazodone HCl (Desyrel) 50 mg QHSP PRN PO INSOMNIA 06/26/19 19:30 07/13/19 21:01 Trihexyphenidyl HCl (Artane) 5 mg DAILY PO 06/27/19 09:00 07/14/19 08:26 Allergies Coded Allergies: haloperidol (Verified Adverse Reaction, Severe, EPS, Difficulty Breathing, 05/29/19) loxapine (Verified Adverse Reaction, Severe, Tounge protrsion, diff breathing, 05/29/19) lithium (Verified Adverse Reaction, Intermediate, speech problems, 05/29/19) JULIO SPENCE DO Jul 14, 2019 8:41 am
[2019-07-14] MEDS: cloZAPine 100 MG TAB (S0136) PO SCH ×2 (10:16→21:00)
[2019-07-14 15:39] VITALS: BP 126/77
[2019-07-14 17:35] VITALS: BP 115/78
[2019-07-14] MEDS: OLANZapine 5 MG TAB PO SCH (20:59)
[2019-07-14] MEDS: traZODone 50 MG TAB PO PRN (20:59)
[2019-07-14] MEDS: GABAPENTIN 100 MG CAP PO SCH (20:59)
[2019-07-14] MEDS: cloNIDine 0.1 MG TAB PO SCH (20:59)
[2019-07-14] MEDS: NORTRIPTYLINE 25 MG CAP PO SCH (20:59)
[2019-07-14] MEDS: DIVALPROEX 250 MG TAB PO SCH (21:00)
[2019-07-15] MEDS: CYCLOBENZAPRINE 5MG TABLET PO SCH ×3 (05:48→21:08)
[2019-07-15] MEDS: LEVOTHYROXINE 75MCG TABLET (0.075MG) PO SCH (05:48)
[2019-07-15] MEDS: NICOTINE POLACRILEX 2 MG GUM PO PRN ×5 (05:48→20:38)
[2019-07-15 07:15] VITALS: BP 97/68
[2019-07-15] MEDS: cloZAPine 100 MG TAB (S0136) PO SCH ×2 (08:25→20:39)
[2019-07-15] MEDS: TIOTROPIUM INHALER/CAPSULE (SPIRIVA) INH SCH (08:25)
[2019-07-15] MEDS: MULTIVITAMINS/MINERALS THERAP 1 TAB PO SCH (08:25)
[2019-07-15] MEDS: BREXPIPRAZOLE 2MG TABLET (REXULTI) PO SCH (08:25)
[2019-07-15] MEDS: DOCUSATE SODIUM 100 MG CAP PO SCH ×2 (08:25→20:38)
[2019-07-15] MEDS: TAMSULOSIN 0.4 MG CAP PO SCH (08:25)
[2019-07-15] MEDS: TRIHEXYPHENIDYL 2 MG TAB PO SCH (08:25)
[2019-07-15] MEDS: DIVALPROEX 500 MG TAB PO SCH ×2 (08:25→20:38)
[2019-07-15] MEDS: PANTOPRAZOLE 40MG TAB (PROTONIX) PO SCH ×2 (08:25→20:38)
[2019-07-15 17:50] VITALS: BP 118/80
[2019-07-15] MEDS: OLANZapine 5 MG TAB PO SCH (20:38)
[2019-07-15] MEDS: GABAPENTIN 100 MG CAP PO SCH (20:38)
[2019-07-15] MEDS: DIVALPROEX 250 MG TAB PO SCH (20:38)
[2019-07-15] MEDS: NORTRIPTYLINE 25 MG CAP PO SCH (20:38)
[2019-07-15] MEDS: traZODone 50 MG TAB PO PRN (20:38)
[2019-07-15] MEDS: cloNIDine 0.1 MG TAB PO SCH (20:40)
[2019-07-16] MEDS: LEVOTHYROXINE 75MCG TABLET (0.075MG) PO SCH (05:41)
[2019-07-16] MEDS: CYCLOBENZAPRINE 5MG TABLET PO SCH ×3 (05:41→20:42)
[2019-07-16] MEDS: NICOTINE POLACRILEX 2 MG GUM PO PRN ×6 (05:41→20:43)
[2019-07-16 06:26] VITALS: BP 115/70
[2019-07-16] MEDS: DOCUSATE SODIUM 100 MG CAP PO SCH ×2 (08:25→20:43)
[2019-07-16] MEDS: MULTIVITAMINS/MINERALS THERAP 1 TAB PO SCH (08:25)
[2019-07-16] MEDS: TIOTROPIUM INHALER/CAPSULE (SPIRIVA) INH SCH (08:25)
[2019-07-16] MEDS: PANTOPRAZOLE 40MG TAB (PROTONIX) PO SCH ×2 (08:25→20:42)
[2019-07-16] MEDS: DIVALPROEX 500 MG TAB PO SCH ×2 (08:25→20:43)
[2019-07-16] MEDS: TAMSULOSIN 0.4 MG CAP PO SCH (08:25)
[2019-07-16] MEDS: cloZAPine 100 MG TAB (S0136) PO SCH ×2 (08:26→20:43)
[2019-07-16] MEDS: BREXPIPRAZOLE 2MG TABLET (REXULTI) PO SCH (08:26)
[2019-07-16] MEDS: TRIHEXYPHENIDYL 2 MG TAB PO SCH (08:26)
[2019-07-16 17:38] VITALS: BP 131/79
[2019-07-16] MEDS: DIVALPROEX 250 MG TAB PO SCH (20:42)
[2019-07-16] MEDS: cloNIDine 0.1 MG TAB PO SCH (20:42)
[2019-07-16] MEDS: traZODone 50 MG TAB PO PRN (20:42)
[2019-07-16] MEDS: GABAPENTIN 100 MG CAP PO SCH (20:42)
[2019-07-16] MEDS: NORTRIPTYLINE 25 MG CAP PO SCH (20:43)
[2019-07-16] MEDS: OLANZapine 5 MG TAB PO SCH (20:43)
[2019-07-17] MEDS: LEVOTHYROXINE 75MCG TABLET (0.075MG) PO SCH (05:44)
[2019-07-17] MEDS: CYCLOBENZAPRINE 5MG TABLET PO SCH ×3 (05:44→22:20)
[2019-07-17] MEDS: NICOTINE POLACRILEX 2 MG GUM PO PRN ×6 (06:01→19:32)
[2019-07-17 06:35] VITALS: BP 108/79
[2019-07-17] MEDS: TIOTROPIUM INHALER/CAPSULE (SPIRIVA) INH SCH (07:33)
[2019-07-17] MEDS: TAMSULOSIN 0.4 MG CAP PO SCH (08:44)
[2019-07-17] MEDS: TRIHEXYPHENIDYL 2 MG TAB PO SCH (08:44)
[2019-07-17] MEDS: PILL CUTTER 1 EACH XX PRN (08:44)
[2019-07-17] MEDS: BREXPIPRAZOLE 2MG TABLET (REXULTI) PO SCH (08:44)
[2019-07-17] MEDS: DIVALPROEX 500 MG TAB PO SCH ×2 (08:44→20:19)
[2019-07-17] MEDS: DOCUSATE SODIUM 100 MG CAP PO SCH ×2 (08:45→20:20)
[2019-07-17] MEDS: MULTIVITAMINS/MINERALS THERAP 1 TAB PO SCH (08:45)
[2019-07-17] MEDS: PANTOPRAZOLE 40MG TAB (PROTONIX) PO SCH ×2 (08:45→20:20)
[2019-07-17] MEDS: cloZAPine 100 MG TAB (S0136) PO SCH ×2 (08:46→20:21)
[2019-07-17 17:02] VITALS: BP 127/70
[2019-07-17] MEDS: GABAPENTIN 100 MG CAP PO SCH (20:20)
[2019-07-17] MEDS: OLANZapine 5 MG TAB PO SCH (20:20)
[2019-07-17] MEDS: DIVALPROEX 250 MG TAB PO SCH (20:20)
[2019-07-17] MEDS: NORTRIPTYLINE 25 MG CAP PO SCH (20:21)
[2019-07-17] MEDS: cloNIDine 0.1 MG TAB PO SCH (20:22)
[2019-07-17] MEDS: traZODone 50 MG TAB PO PRN (22:19)
[2019-07-18] MEDS: NICOTINE POLACRILEX 2 MG GUM PO PRN ×6 (05:47→21:17)
[2019-07-18] MEDS: CYCLOBENZAPRINE 5MG TABLET PO SCH ×3 (05:48→21:18)
[2019-07-18] MEDS: LEVOTHYROXINE 75MCG TABLET (0.075MG) PO SCH (05:48)
[2019-07-18 06:52] VITALS: BP 112/70
[2019-07-18] MEDS: TAMSULOSIN 0.4 MG CAP PO SCH (08:40)
[2019-07-18] MEDS: BREXPIPRAZOLE 2MG TABLET (REXULTI) PO SCH (08:41)
[2019-07-18] MEDS: DIVALPROEX 500 MG TAB PO SCH ×2 (08:41→21:18)
[2019-07-18] MEDS: cloZAPine 100 MG TAB (S0136) PO SCH ×2 (08:41→21:19)
[2019-07-18] MEDS: PANTOPRAZOLE 40MG TAB (PROTONIX) PO SCH ×2 (08:42→21:18)
[2019-07-18] MEDS: MULTIVITAMINS/MINERALS THERAP 1 TAB PO SCH (08:42)
[2019-07-18] MEDS: PILL CUTTER 1 EACH XX PRN (08:42)
[2019-07-18] MEDS: DOCUSATE SODIUM 100 MG CAP PO SCH ×2 (08:42→21:18)
[2019-07-18] MEDS: TRIHEXYPHENIDYL 2 MG TAB PO SCH (08:42)
[2019-07-18] MEDS: TIOTROPIUM INHALER/CAPSULE (SPIRIVA) INH SCH (08:42)
--- NOTE | 2019-07-18 11:39 | MHIPNPDOC ---
[facility] Progress Note Progress Note DATE OF SERVICE: 07/18/19 HISTORY: Patient is a 58 -year-old , male, with a history of schizoaffective d/o, multiple inpatient admits to [facility], multiple SA by OD/cutting/hanging who was brought to ED by [facility] after he reported to staff he was feeling depressed and suicidal with plan to cut himself per ED. In ED pt continued to endorse depression with SI and plan to cut himself for 3 days, cause unknown, insistent on being admitted [facility] for treatment of would "bleed out." He denied HI, hallucinations, delusions in the ED. VITAL SIGNS: See below. NEW TEST RESULTS: ANC 4659.3 wnl CURRENT MEDICATIONS: See below. MENTAL STATUS EXAMINATION: Roughly no change from yesterday The patient is alert, oriented and cooperative. Affect remains flat. Volume of speech is still low. Mood is moderately depressed. Improved anxiety over going to [facility] in [place]... [place]." He denies suicidal thoughts today. Auditory hallucinations are chronic and prominent. No signs of paranoia or thought disorder. Insight and judgment remain fair. No signs of organic deficits. DIAGNOSES: 1. Schizoaffective disorder, bipolar type. 2. Generalized anxiety disorder. ASSESSMENT:Roughly no change from yesterday. Pt seen and states he feels "ok"today and is finding his meds beneficial and tolerating them well. States his anxiety continues to improve but improves shortly after it started and is mostly about going to [facility] in [place] [facility] as he's never been there before. Again, have spoken to pt numerous times about how there may be more treatment modalities (ECT which I didn't mention to the pt) available at [facility] due to it being in [place] and that new experiences can actually be good. States vistaril is beneficial for anxiety. No complaints of urinary freq or morning acid reflux or back pain today. Continues to have chronic depression and AH that are low grade, in background, that are chronic. States he's been compliant on his medications. He denies SI/HI, CAH, VH, delusions today. Feels safe here. Continues to appear overall depressed but is up socializing with peers in the lounge and groups daily as he likes to daily. MANAGEMENT PLAN: continue plan. Awaiting transfer to [facility] [place] [facility] [place]. - Rexulti 2 mg every morning - clonidine 0.1 mg at bedtime - Depakote 1250 mg per day - gabapentin 100 mg at bedtime - nortriptyline 100 mg at bedtime - Zyprexa 15 mg at bedtime - clozapine 200 mg twice a day -vistaril 50mg q6hr prn anxiety -protonix 40mg bid Vital Signs Vital Signs Date Time Temp Pulse Resp B/P (MAP) Pulse Ox O2 Delivery O2 Flow Rate FiO2 07/18/19 06:52 98.5 80 14 112/70 (84) 07/14/19 15:39 95 07/14/19 10:35 Room Air Current Medications Current Medications Medications (Trade) Dose Ordered Sig/Billy Route PRN Reason Start Time Stop Time Status Last Admin Dose Admin Acetaminophen (Tylenol Tab) 650 mg Q6HP PRN PO HEADACHE or DISCOMFORT 06/26/19 19:30 Al Hydrox/Mg Hydrox/Simethicone (Mylanta) 30 ml Q4HP PRN PO HEARTBURN/INDIGESTION 06/26/19 19:30 07/12/19 05:55 Brexpiprazole (Rexulti) 1 mg DAILY PO 06/27/19 09:00 07/03/19 15:56 DC 07/03/19 08:25 Brexpiprazole (Rexulti) 2 mg DAILY PO 07/04/19 09:00 07/05/19 14:00 DC 07/05/19 08:16 Brexpiprazole (Rexulti) 3 mg DAILY PO 07/06/19 09:00 07/18/19 08:41 Clonidine HCl (Catapres) 0.1 mg QHS PO 06/27/19 21:00 07/17/19 20:22 Clozapine (Clozaril) 200 mg BID PO 06/27/19 09:00 07/18/19 08:41 Cyclobenzaprine HCl (Flexeril) 5 mg Q8H PO 06/27/19 14:00 07/18/19 05:48 Divalproex Sodium (Depakote) 250 mg QHS PO 06/27/19 21:00 07/17/19 20:20 Divalproex Sodium (Depakote) 500 mg BID PO 06/27/19 09:00 07/18/19 08:41 Docusate Sodium (Colace) 100 mg BID PO 06/27/19 09:00 07/18/19 08:42 Gabapentin (Neurontin) 100 mg QHS PO 06/27/19 21:00 07/17/19 20:20 Home Med (Med Rec Complete!) ASDIRECTED XX 06/26/19 19:00 06/26/19 19:00 DC Hydroxyzine HCl (Atarax) 50 mg Q6HP PRN PO ANXIETY/AGITATION 07/11/19 09:45 Ibuprofen (Advil) 800 mg BID PRN PO PAIN 06/27/19 10:00 06/28/19 08:45 Levothyroxine Sodium (Synthroid) 75 mcg DAILY@0600 PO 06/27/19 06:00 07/18/19 05:48 Lorazepam (Ativan) 1 mg Q4HP PRN PO ANXIETY 07/01/19 15:15 07/08/19 15:14 DC 07/01/19 20:18 Magnesium Hydroxide (Milk Of Magnesia) 30 ml DAILYPRN PRN PO CONSTIPATION 06/26/19 19:30 Miscellaneous (Unresolved Clarification Entry) SEE LABEL COMMENTS DAILY XX 07/03/19 09:00 07/03/19 14:02 DC Miscellaneous (Unresolved Clarification Entry) SEE LABEL COMMENTS DAILY XX 07/09/19 09:00 07/09/19 15:20 DC Miscellaneous (Unresolved Clarification Entry) SEE LABEL COMMENTS DAILY XX 07/15/19 09:00 07/16/19 07:18 DC Multivitamins (Theragram-M) 1 tab DAILY PO 06/27/19 09:00 07/18/19 08:42 Nicotine (Nicorette) 2 mg Q2HP PRN PO NICOTINE WITHDRAWAL 06/27/19 17:00 07/18/19 08:42 Non-Formulary Medication ( See Comment Field Below ) SEE COMMENTS SECTION 1T@10 XX 06/30/19 10:00 06/30/19 10:00 DC Non-Formulary Medication ( See Comment Field Below ) SEE LABEL COMMENTS DAILY XX 06/28/19 09:00 06/28/19 13:31 DC Nortriptyline HCl (Pamelor) 100 mg QHS PO 06/27/19 21:00 07/17/19 20:21 Olanzapine (ZyPREXA) 15 mg QHS PO 06/27/19 21:00 07/17/19 20:20 Pantoprazole Sodium (Protonix) 40 mg BID PO 07/12/19 21:00 07/18/19 08:42 Pantoprazole Sodium (Protonix) 40 mg DAILY PO 06/27/19 09:00 07/12/19 10:18 DC 07/12/19 08:43 Tamsulosin HCl (Flomax) 0.4 mg DAILY PO 06/27/19 09:00 07/18/19 08:40 Tiotropium [place] (Spiriva Handihaler) 1 inhalation DAILY@0800 INH 06/27/19 08:00 07/18/19 08:42 Trazodone HCl (Desyrel) 50 mg QHSP PRN PO INSOMNIA 06/26/19 19:30 07/17/19 22:19 Trihexyphenidyl HCl (Artane) 5 mg DAILY PO 06/27/19 09:00 07/18/19 08:42 Allergies Coded Allergies: haloperidol (Verified Adverse Reaction, Severe, EPS, Difficulty Breathing, 05/29/19) loxapine (Verified Adverse Reaction, Severe, Tounge protrsion, diff breathing, 05/29/19) lithium (Verified Adverse Reaction, Intermediate, speech problems, ) JULIO SPENCE DO Jul 18, 2019 11:39 am
[2019-07-18 16:40] VITALS: BP 113/74
[2019-07-18] MEDS: traZODone 50 MG TAB PO PRN (21:18)
[2019-07-18] MEDS: GABAPENTIN 100 MG CAP PO SCH (21:18)
[2019-07-18] MEDS: cloNIDine 0.1 MG TAB PO SCH (21:18)
[2019-07-18] MEDS: DIVALPROEX 250 MG TAB PO SCH (21:19)
[2019-07-18] MEDS: OLANZapine 5 MG TAB PO SCH (21:24)
[2019-07-18] MEDS: NORTRIPTYLINE 25 MG CAP PO SCH (21:26)
[2019-07-19] MEDS: NICOTINE POLACRILEX 2 MG GUM PO PRN ×6 (06:01→20:56)
[2019-07-19] MEDS: CYCLOBENZAPRINE 5MG TABLET PO SCH ×3 (06:02→21:43)
[2019-07-19] MEDS: LEVOTHYROXINE 75MCG TABLET (0.075MG) PO SCH (06:02)
[2019-07-19] MEDS: MAALOX 30 ML SUSP *UDC PO PRN (06:25)
[2019-07-19 07:02] VITALS: BP 123/93
[2019-07-19] MEDS: PILL CUTTER 1 EACH XX PRN (08:16)
[2019-07-19] MEDS: TIOTROPIUM INHALER/CAPSULE (SPIRIVA) INH SCH (08:17)
[2019-07-19] MEDS: DOCUSATE SODIUM 100 MG CAP PO SCH ×2 (08:17→20:54)
[2019-07-19] MEDS: MULTIVITAMINS/MINERALS THERAP 1 TAB PO SCH (08:17)
[2019-07-19] MEDS: TAMSULOSIN 0.4 MG CAP PO SCH (08:17)
[2019-07-19] MEDS: PANTOPRAZOLE 40MG TAB (PROTONIX) PO SCH ×2 (08:17→20:54)
[2019-07-19] MEDS: TRIHEXYPHENIDYL 2 MG TAB PO SCH (08:17)
[2019-07-19] MEDS: DIVALPROEX 500 MG TAB PO SCH ×2 (08:18→20:55)
[2019-07-19] MEDS: BREXPIPRAZOLE 2MG TABLET (REXULTI) PO SCH (08:19)
[2019-07-19] MEDS: cloZAPine 100 MG TAB (S0136) PO SCH ×2 (08:20→20:53)
--- NOTE | 2019-07-19 10:18 | MHIPNPDOC ---
[facility] Progress Note Progress Note DATE OF SERVICE: 07/19/19 HISTORY: Patient is a 58 -year-old , male, with a history of schizoaffective d/o, multiple inpatient admits to [facility], multiple SA by OD/cutting/hanging who was brought to ED by [facility] after he reported to staff he was feeling depressed and suicidal with plan to cut himself per ED. In ED pt continued to endorse depression with SI and plan to cut himself for 3 days, cause unknown, insistent on being admitted [facility] for treatment of would "bleed out." He denied HI, hallucinations, delusions in the ED. VITAL SIGNS: See below. NEW TEST RESULTS: ANC 4659.3 wnl CURRENT MEDICATIONS: See below. MENTAL STATUS EXAMINATION: Roughly no change from yesterday The patient is alert, oriented and cooperative. Affect remains flat. Volume of speech is still low. Mood is moderately depressed. Greatly improved anxiety with new referral [facility] [place]. He denies suicidal thoughts today. Auditory hallucinations are chronic and prominent. No signs of paranoia or thought disorder. Insight and judgment remain fair. No signs of organic deficits. DIAGNOSES: 1. Schizoaffective disorder, bipolar type. 2. Generalized anxiety disorder. ASSESSMENT:Roughly no change from yesterday. Pt seen and states he feels "ok"today and is finding his meds beneficial and tolerating them well. States his anxiety is greatly improved with the knowledge he is being referred again to [facility] for nursing home treatment and is looking forward to going there soon. States vistaril is beneficial for anxiety. No complaints of urinary freq or morning acid reflux or back pain today. Continues to have chronic depression and AH that are low grade, in background, that are chronic. States he's been compliant on his medications. He denies SI/HI, CAH, VH, delusions today. Feels safe here. Continues to appear overall depressed but is up socializing with peers in the lounge and groups daily as he likes to daily. MANAGEMENT PLAN: continue plan. Awaiting [place] [facility]. - Rexulti 2 mg every morning - clonidine 0.1 mg at bedtime - Depakote 1250 mg per day - gabapentin 100 mg at bedtime - nortriptyline 100 mg at bedtime - Zyprexa 15 mg at bedtime - clozapine 200 mg twice a day -vistaril 50mg q6hr prn anxiety -protonix 40mg bid Vital Signs Vital Signs Date Time Temp Pulse Resp B/P (MAP) Pulse Ox O2 Delivery O2 Flow Rate FiO2 07/19/19 07:02 98.4 84 14 123/93 (103) 07/14/19 15:39 95 07/14/19 10:35 Room Air Current Medications Current Medications Medications (Trade) Dose Ordered Sig/Billy Route PRN Reason Start Time Stop Time Status Last Admin Dose Admin Acetaminophen (Tylenol Tab) 650 mg Q6HP PRN PO HEADACHE or DISCOMFORT 06/26/19 19:30 Al Hydrox/Mg Hydrox/Simethicone (Mylanta) 30 ml Q4HP PRN PO HEARTBURN/INDIGESTION 06/26/19 19:30 07/19/19 06:25 Brexpiprazole (Rexulti) 1 mg DAILY PO 06/27/19 09:00 07/03/19 15:56 DC 07/03/19 08:25 Brexpiprazole (Rexulti) 2 mg DAILY PO 07/04/19 09:00 07/05/19 14:00 DC 07/05/19 08:16 Brexpiprazole (Rexulti) 3 mg DAILY PO 07/06/19 09:00 07/19/19 08:19 Clonidine HCl (Catapres) 0.1 mg QHS PO 06/27/19 21:00 07/18/19 21:18 Clozapine (Clozaril) 200 mg BID PO 06/27/19 09:00 07/19/19 08:20 Cyclobenzaprine HCl (Flexeril) 5 mg Q8H PO 06/27/19 14:00 07/19/19 06:02 Divalproex Sodium (Depakote) 250 mg QHS PO 06/27/19 21:00 07/18/19 21:19 Divalproex Sodium (Depakote) 500 mg BID PO 06/27/19 09:00 07/19/19 08:18 Docusate Sodium (Colace) 100 mg BID PO 06/27/19 09:00 07/19/19 08:17 Gabapentin (Neurontin) 100 mg QHS PO 06/27/19 21:00 07/18/19 21:18 Home Med (Med Rec Complete!) ASDIRECTED XX 06/26/19 19:00 06/26/19 19:00 DC Hydroxyzine HCl (Atarax) 50 mg Q6HP PRN PO ANXIETY/AGITATION 07/11/19 09:45 Ibuprofen (Advil) 800 mg BID PRN PO PAIN 06/27/19 10:00 06/28/19 08:45 Levothyroxine Sodium (Synthroid) 75 mcg DAILY@0600 PO 06/27/19 06:00 07/19/19 06:02 Lorazepam (Ativan) 1 mg Q4HP PRN PO ANXIETY 07/01/19 15:15 07/08/19 15:14 DC 07/01/19 20:18 Magnesium Hydroxide (Milk Of Magnesia) 30 ml DAILYPRN PRN PO CONSTIPATION 06/26/19 19:30 Miscellaneous (Unresolved Clarification Entry) SEE LABEL COMMENTS DAILY XX 07/03/19 09:00 07/03/19 14:02 DC Miscellaneous (Unresolved Clarification Entry) SEE LABEL COMMENTS DAILY XX 07/09/19 09:00 07/09/19 15:20 DC Miscellaneous (Unresolved Clarification Entry) SEE LABEL COMMENTS DAILY XX 07/15/19 09:00 07/16/19 07:18 DC Multivitamins (Theragram-M) 1 tab DAILY PO 06/27/19 09:00 07/19/19 08:17 Nicotine (Nicorette) 2 mg Q2HP PRN PO NICOTINE WITHDRAWAL 06/27/19 17:00 07/19/19 08:17 Non-Formulary Medication ( See Comment Field Below ) SEE COMMENTS SECTION 1T@10 XX 06/30/19 10:00 06/30/19 10:00 DC Non-Formulary Medication ( See Comment Field Below ) SEE LABEL COMMENTS DAILY XX 06/28/19 09:00 06/28/19 13:31 DC Nortriptyline HCl (Pamelor) 100 mg QHS PO 06/27/19 21:00 07/18/19 21:26 Olanzapine (ZyPREXA) 15 mg QHS PO 06/27/19 21:00 07/18/19 21:24 Pantoprazole Sodium (Protonix) 40 mg BID PO 07/12/19 21:00 07/19/19 08:17 Pantoprazole Sodium (Protonix) 40 mg DAILY PO 06/27/19 09:00 07/12/19 10:18 DC 07/12/19 08:43 Tamsulosin HCl (Flomax) 0.4 mg DAILY PO 06/27/19 09:00 07/19/19 08:17 Tiotropium [place] (Spiriva Handihaler) 1 inhalation DAILY@0800 INH 06/27/19 08:00 07/19/19 08:17 Trazodone HCl (Desyrel) 50 mg QHSP PRN PO INSOMNIA 06/26/19 19:30 07/18/19 21:18 Trihexyphenidyl HCl (Artane) 5 mg DAILY PO 06/27/19 09:00 07/19/19 08:17 Allergies Coded Allergies: haloperidol (Verified Adverse Reaction, Severe, EPS, Difficulty Breathing, 05/29/19) loxapine (Verified Adverse Reaction, Severe, Tounge protrsion, diff breathing, 05/29/19) lithium (Verified Adverse Reaction, Intermediate, speech problems, 05/29/19) JULIO SPENCE DO Jul 19, 2019 9:33 am
[2019-07-19 16:30] VITALS: BP 120/87
[2019-07-19] MEDS: cloNIDine 0.1 MG TAB PO SCH (20:52)
[2019-07-19] MEDS: GABAPENTIN 100 MG CAP PO SCH (20:54)
[2019-07-19] MEDS: traZODone 50 MG TAB PO PRN (20:55)
[2019-07-19] MEDS: OLANZapine 5 MG TAB PO SCH (20:55)
[2019-07-19] MEDS: NORTRIPTYLINE 25 MG CAP PO SCH (20:55)
[2019-07-19] MEDS: DIVALPROEX 250 MG TAB PO SCH (20:55)
[2019-07-20] MEDS: CYCLOBENZAPRINE 5MG TABLET PO SCH ×3 (06:45→21:14)
[2019-07-20] MEDS: NICOTINE POLACRILEX 2 MG GUM PO PRN ×6 (06:45→21:17)
[2019-07-20] MEDS: LEVOTHYROXINE 75MCG TABLET (0.075MG) PO SCH (06:45)
[2019-07-20 06:52] VITALS: BP 122/83
[2019-07-20] MEDS: TIOTROPIUM INHALER/CAPSULE (SPIRIVA) INH SCH (08:40)
[2019-07-20] MEDS: PANTOPRAZOLE 40MG TAB (PROTONIX) PO SCH ×2 (08:40→21:15)
[2019-07-20] MEDS: TRIHEXYPHENIDYL 2 MG TAB PO SCH (08:40)
[2019-07-20] MEDS: MULTIVITAMINS/MINERALS THERAP 1 TAB PO SCH (08:40)
[2019-07-20] MEDS: DOCUSATE SODIUM 100 MG CAP PO SCH ×2 (08:40→21:15)
[2019-07-20] MEDS: DIVALPROEX 500 MG TAB PO SCH ×2 (08:41→21:14)
[2019-07-20] MEDS: TAMSULOSIN 0.4 MG CAP PO SCH (08:41)
[2019-07-20] MEDS: cloZAPine 100 MG TAB (S0136) PO SCH ×2 (08:41→21:14)
[2019-07-20] MEDS: BREXPIPRAZOLE 2MG TABLET (REXULTI) PO SCH (08:41)
--- NOTE | 2019-07-20 12:07 | MHIPNPDOC ---
[facility] Progress Note Progress Note DATE OF SERVICE: 07/20/19 HISTORY: Patient is a 58 -year-old , male, with a history of schizoaffective d/o, multiple inpatient admits to [facility], multiple SA by OD/cutting/hanging who was brought to ED by [facility] after he reported to staff he was feeling depressed and suicidal with plan to cut himself per ED. In ED pt continued to endorse depression with SI and plan to cut himself for 3 days, cause unknown, insistent on being admitted [facility] for treatment of would "bleed out." He denied HI, hallucinations, delusions in the ED. VITAL SIGNS: See below. NEW TEST RESULTS: ANC 4659.3 wnl CURRENT MEDICATIONS: See below. MENTAL STATUS EXAMINATION: Roughly no change from yesterday The patient is alert, oriented and cooperative. Affect remains flat. Volume of speech is still low. Mood is moderately depressed. Greatly improved anxiety with new referral [facility] for half-way treatment. He denies suicidal thoughts today. Auditory hallucinations are chronic and prominent. No signs of paranoia or thought disorder. Insight and judgment remain fair. No signs of organic deficits. DIAGNOSES: 1. Schizoaffective disorder, bipolar type. 2. Generalized anxiety disorder. ASSESSMENT:Roughly no change from yesterday. Pt seen and states he feels "ok" today and is finding his meds beneficial and tolerating them well. States he's excited that he's been accepted to [facility] for half-way treatment and is greatly looking forward to going there on Wednesday. States vistaril is beneficial for anxiety. No complaints of urinary freq or morning acid reflux or back pain today. Continues to have chronic depression and AH that are low grade, in background, that are chronic. States he's been compliant on his medications. He denies SI/HI, CAH, VH, delusions today. Feels safe here. Continues to appear overall depressed but is up socializing with peers in the lounge and groups daily as he likes to daily. MANAGEMENT PLAN: continue plan. Transfer to [facility] treatment Wednesday - Rexulti 2 mg every morning - clonidine 0.1 mg at bedtime - Depakote 1250 mg per day - gabapentin 100 mg at bedtime - nortriptyline 100 mg at bedtime - Zyprexa 15 mg at bedtime - clozapine 200 mg twice a day -vistaril 50mg q6hr prn anxiety -protonix 40mg bid Vital Signs Vital Signs Date Time Temp Pulse Resp B/P (MAP) Pulse Ox O2 Delivery O2 Flow Rate FiO2 07/20/19 06:52 98.2 87 14 122/83 (96) 07/14/19 15:39 95 07/14/19 10:35 Room Air Current Medications Current Medications Medications (Trade) Dose Ordered Sig/Billy Route PRN Reason Start Time Stop Time Status Last Admin Dose Admin Acetaminophen (Tylenol Tab) 650 mg Q6HP PRN PO HEADACHE or DISCOMFORT 06/26/19 19:30 Al Hydrox/Mg Hydrox/Simethicone (Mylanta) 30 ml Q4HP PRN PO HEARTBURN/INDIGESTION 06/26/19 19:30 07/19/19 06:25 Brexpiprazole (Rexulti) 1 mg DAILY PO 06/27/19 09:00 07/03/19 15:56 DC 07/03/19 08:25 Brexpiprazole (Rexulti) 2 mg DAILY PO 07/04/19 09:00 07/05/19 14:00 DC 07/05/19 08:16 Brexpiprazole (Rexulti) 3 mg DAILY PO 07/06/19 09:00 07/20/19 08:41 Clonidine HCl (Catapres) 0.1 mg QHS PO 06/27/19 21:00 07/19/19 20:52 Clozapine (Clozaril) 200 mg BID PO 06/27/19 09:00 07/20/19 08:41 Cyclobenzaprine HCl (Flexeril) 5 mg Q8H PO 06/27/19 14:00 07/20/19 06:45 Divalproex Sodium (Depakote) 250 mg QHS PO 06/27/19 21:00 07/19/19 20:55 Divalproex Sodium (Depakote) 500 mg BID PO 06/27/19 09:00 07/20/19 08:41 Docusate Sodium (Colace) 100 mg BID PO 06/27/19 09:00 07/20/19 08:40 Gabapentin (Neurontin) 100 mg QHS PO 06/27/19 21:00 07/19/19 20:54 Home Med (Med Rec Complete!) ASDIRECTED XX 06/26/19 19:00 06/26/19 19:00 DC Hydroxyzine HCl (Atarax) 50 mg Q6HP PRN PO ANXIETY/AGITATION 07/11/19 09:45 Ibuprofen (Advil) 800 mg BID PRN PO PAIN 06/27/19 10:00 06/28/19 08:45 Levothyroxine Sodium (Synthroid) 75 mcg DAILY@0600 PO 06/27/19 06:00 07/20/19 06:45 Lorazepam (Ativan) 1 mg Q4HP PRN PO ANXIETY 07/01/19 15:15 07/08/19 15:14 DC 07/01/19 20:18 Magnesium Hydroxide (Milk Of Magnesia) 30 ml DAILYPRN PRN PO CONSTIPATION 06/26/19 19:30 Miscellaneous (Unresolved Clarification Entry) SEE LABEL COMMENTS DAILY XX 07/03/19 09:00 07/03/19 14:02 DC Miscellaneous (Unresolved Clarification Entry) SEE LABEL COMMENTS DAILY XX 07/09/19 09:00 07/09/19 15:20 DC Miscellaneous (Unresolved Clarification Entry) SEE LABEL COMMENTS DAILY XX 07/15/19 09:00 07/16/19 07:18 DC Multivitamins (Theragram-M) 1 tab DAILY PO 06/27/19 09:00 07/20/19 08:40 Nicotine (Nicorette) 2 mg Q2HP PRN PO NICOTINE WITHDRAWAL 06/27/19 17:00 07/20/19 11:38 Non-Formulary Medication ( See Comment Field Below ) SEE COMMENTS SECTION 1T@10 XX 06/30/19 10:00 06/30/19 10:00 DC Non-Formulary Medication ( See Comment Field Below ) SEE LABEL COMMENTS DAILY XX 06/28/19 09:00 06/28/19 13:31 DC Nortriptyline HCl (Pamelor) 100 mg QHS PO 06/27/19 21:00 07/19/19 20:55 Olanzapine (ZyPREXA) 15 mg QHS PO 06/27/19 21:00 07/19/19 20:55 Pantoprazole Sodium (Protonix) 40 mg BID PO 07/12/19 21:00 07/20/19 08:40 Pantoprazole Sodium (Protonix) 40 mg DAILY PO 06/27/19 09:00 07/12/19 10:18 DC 07/12/19 08:43 Tamsulosin HCl (Flomax) 0.4 mg DAILY PO 06/27/19 09:00 07/20/19 08:41 Tiotropium [place] (Spiriva Handihaler) 1 inhalation DAILY@0800 INH 06/27/19 08:00 07/20/19 08:40 Trazodone HCl (Desyrel) 50 mg QHSP PRN PO INSOMNIA 06/26/19 19:30 07/19/19 20:55 Trihexyphenidyl HCl (Artane) 5 mg DAILY PO 06/27/19 09:00 07/20/19 08:40 Allergies Coded Allergies: haloperidol (Verified Adverse Reaction, Severe, EPS, Difficulty Breathing, 05/29/19) loxapine (Verified Adverse Reaction, Severe, Tounge protrsion, diff breathing, 05/29/19) lithium (Verified Adverse Reaction, Intermediate, speech problems, 05/29/19) JULIO SPENCE DO Jul 20, 2019 12:07 pm
[2019-07-20 17:28] VITALS: BP 120/74
[2019-07-20] MEDS: cloNIDine 0.1 MG TAB PO SCH (21:14)
[2019-07-20] MEDS: NORTRIPTYLINE 25 MG CAP PO SCH (21:14)
[2019-07-20] MEDS: DIVALPROEX 250 MG TAB PO SCH (21:14)
[2019-07-20] MEDS: GABAPENTIN 100 MG CAP PO SCH (21:14)
[2019-07-20] MEDS: traZODone 50 MG TAB PO PRN (21:15)
[2019-07-20] MEDS: OLANZapine 5 MG TAB PO SCH (21:15)
[2019-07-21] MEDS: NICOTINE POLACRILEX 2 MG GUM PO PRN ×6 (05:57→20:56)
[2019-07-21] MEDS: LEVOTHYROXINE 75MCG TABLET (0.075MG) PO SCH (05:57)
[2019-07-21] MEDS: CYCLOBENZAPRINE 5MG TABLET PO SCH ×3 (05:57→20:56)
[2019-07-21 06:51] VITALS: BP 128/73
[2019-07-21] MEDS: TIOTROPIUM INHALER/CAPSULE (SPIRIVA) INH SCH (07:52)
[2019-07-21] MEDS: BREXPIPRAZOLE 2MG TABLET (REXULTI) PO SCH (08:18)
[2019-07-21] MEDS: DOCUSATE SODIUM 100 MG CAP PO SCH ×2 (08:19→20:57)
[2019-07-21] MEDS: TAMSULOSIN 0.4 MG CAP PO SCH (08:19)
[2019-07-21] MEDS: MULTIVITAMINS/MINERALS THERAP 1 TAB PO SCH (08:19)
[2019-07-21] MEDS: DIVALPROEX 500 MG TAB PO SCH ×2 (08:19→20:57)
[2019-07-21] MEDS: PANTOPRAZOLE 40MG TAB (PROTONIX) PO SCH ×2 (08:19→20:57)
[2019-07-21] MEDS: cloZAPine 100 MG TAB (S0136) PO SCH ×2 (08:19→20:56)
[2019-07-21] MEDS: TRIHEXYPHENIDYL 2 MG TAB PO SCH (08:20)
--- NOTE | 2019-07-21 11:01 | MHIPNPDOC ---
[facility] Progress Note Progress Note DATE OF SERVICE: 07/21/19 HISTORY: Patient is a 58 -year-old , male, with a history of schizoaffective d/o, multiple inpatient admits to [facility], multiple SA by OD/cutting/hanging who was brought to ED by [facility] after he reported to staff he was feeling depressed and suicidal with plan to cut himself per ED. In ED pt continued to endorse depression with SI and plan to cut himself for 3 days, cause unknown, insistent on being admitted [facility] for treatment of would "bleed out." He denied HI, hallucinations, delusions in the ED. VITAL SIGNS: See below. NEW TEST RESULTS: ANC 4659.3 wnl CURRENT MEDICATIONS: See below. MENTAL STATUS EXAMINATION: Roughly no change from yesterday The patient is alert, oriented and cooperative. Affect remains flat. Volume of speech is still low. Mood is moderately depressed. Greatly improved anxiety with new referral [facility] [place]. He denies suicidal thoughts today. Auditory hallucinations are chronic and prominent. No signs of paranoia or thought disorder. Insight and judgment remain fair. No signs of organic deficits. DIAGNOSES: 1. Schizoaffective disorder, bipolar type. 2. Generalized anxiety disorder. ASSESSMENT:Roughly no change from yesterday. Pt seen and states he feels "good" today and is finding his meds beneficial and tolerating them well. States he's continually excited that he's been accepted [place] [facility] [place] and is greatly looking forward to going there on Wednesday. States vistaril is beneficial for anxiety. No complaints of urinary freq or morning acid reflux or back pain today. Continues to have chronic depression and AH that are low grade, in background, that are chronic. States he's been compliant on his medications. He denies SI/HI, CAH, VH, delusions today. Feels safe here. Continues to appear overall depressed but is up socializing with peers in the lounge and groups daily as he likes to daily. MANAGEMENT PLAN: continue plan. Transfer to [facility] long-term treatment Wednesday - Rexulti 2 mg every morning - clonidine 0.1 mg at bedtime - Depakote 1250 mg per day - gabapentin 100 mg at bedtime - nortriptyline 100 mg at bedtime - Zyprexa 15 mg at bedtime - clozapine 200 mg twice a day -vistaril 50mg q6hr prn anxiety -protonix 40mg bid Vital Signs Vital Signs Date Time Temp Pulse Resp B/P (MAP) Pulse Ox O2 Delivery O2 Flow Rate FiO2 07/21/19 06:51 98.0 84 16 128/73 (91) Current Medications Current Medications Medications (Trade) Dose Ordered Sig/Billy Route PRN Reason Start Time Stop Time Status Last Admin Dose Admin Acetaminophen (Tylenol Tab) 650 mg Q6HP PRN PO HEADACHE or DISCOMFORT 06/26/19 19:30 Al Hydrox/Mg Hydrox/Simethicone (Mylanta) 30 ml Q4HP PRN PO HEARTBURN/INDIGESTION 06/26/19 19:30 07/19/19 06:25 Brexpiprazole (Rexulti) 1 mg DAILY PO 06/27/19 09:00 07/03/19 15:56 DC 07/03/19 08:25 Brexpiprazole (Rexulti) 2 mg DAILY PO 07/04/19 09:00 07/05/19 14:00 DC 07/05/19 08:16 Brexpiprazole (Rexulti) 3 mg DAILY PO 07/06/19 09:00 07/21/19 08:18 Clonidine HCl (Catapres) 0.1 mg QHS PO 06/27/19 21:00 07/20/19 21:14 Clozapine (Clozaril) 200 mg BID PO 06/27/19 09:00 07/21/19 08:19 Cyclobenzaprine HCl (Flexeril) 5 mg Q8H PO 06/27/19 14:00 07/21/19 05:57 Divalproex Sodium (Depakote) 250 mg QHS PO 06/27/19 21:00 07/20/19 21:14 Divalproex Sodium (Depakote) 500 mg BID PO 06/27/19 09:00 07/21/19 08:19 Docusate Sodium (Colace) 100 mg BID PO 06/27/19 09:00 07/21/19 08:19 Gabapentin (Neurontin) 100 mg QHS PO 06/27/19 21:00 07/20/19 21:14 Home Med (Med Rec Complete!) ASDIRECTED XX 06/26/19 19:00 06/26/19 19:00 DC Hydroxyzine HCl (Atarax) 50 mg Q6HP PRN PO ANXIETY/AGITATION 07/11/19 09:45 Ibuprofen (Advil) 800 mg BID PRN PO PAIN 06/27/19 10:00 06/28/19 08:45 Levothyroxine Sodium (Synthroid) 75 mcg DAILY@0600 PO 06/27/19 06:00 07/21/19 05:57 Lorazepam (Ativan) 1 mg Q4HP PRN PO ANXIETY 07/01/19 15:15 07/08/19 15:14 DC 07/01/19 20:18 Magnesium Hydroxide (Milk Of Magnesia) 30 ml DAILYPRN PRN PO CONSTIPATION 06/26/19 19:30 Miscellaneous (Unresolved Clarification Entry) SEE LABEL COMMENTS DAILY XX 07/03/19 09:00 07/03/19 14:02 DC Miscellaneous (Unresolved Clarification Entry) SEE LABEL COMMENTS DAILY XX 07/09/19 09:00 07/09/19 15:20 DC Miscellaneous (Unresolved Clarification Entry) SEE LABEL COMMENTS DAILY XX 07/15/19 09:00 07/16/19 07:18 DC Multivitamins (Theragram-M) 1 tab DAILY PO 06/27/19 09:00 07/21/19 08:19 Nicotine (Nicorette) 2 mg Q2HP PRN PO NICOTINE WITHDRAWAL 06/27/19 17:00 07/21/19 08:23 Non-Formulary Medication ( See Comment Field Below ) SEE COMMENTS SECTION 1T@10 XX 06/30/19 10:00 06/30/19 10:00 DC Non-Formulary Medication ( See Comment Field Below ) SEE LABEL COMMENTS DAILY XX 06/28/19 09:00 06/28/19 13:31 DC Nortriptyline HCl (Pamelor) 100 mg QHS PO 06/27/19 21:00 07/20/19 21:14 Olanzapine (ZyPREXA) 15 mg QHS PO 06/27/19 21:00 07/20/19 21:15 Pantoprazole Sodium (Protonix) 40 mg BID PO 07/12/19 21:00 07/21/19 08:19 Pantoprazole Sodium (Protonix) 40 mg DAILY PO 06/27/19 09:00 07/12/19 10:18 DC 07/12/19 08:43 Tamsulosin HCl (Flomax) 0.4 mg DAILY PO 06/27/19 09:00 07/21/19 08:19 Tiotropium [place] (Spiriva Handihaler) 1 inhalation DAILY@0800 INH 06/27/19 08:00 07/21/19 07:52 Trazodone HCl (Desyrel) 50 mg QHSP PRN PO INSOMNIA 06/26/19 19:30 07/20/19 21:15 Trihexyphenidyl HCl (Artane) 5 mg DAILY PO 06/27/19 09:00 07/21/19 08:20 Allergies Coded Allergies: haloperidol (Verified Adverse Reaction, Severe, EPS, Difficulty Breathing, 05/29/19) loxapine (Verified Adverse Reaction, Severe, Tounge protrsion, diff breathing, 05/29/19) lithium (Verified Adverse Reaction, Intermediate, speech problems, 05/29/19) JULIO SPENCE DO Jul 21, 2019 9:28 am
[2019-07-21 18:13] VITALS: BP 122/71
[2019-07-21] MEDS: GABAPENTIN 100 MG CAP PO SCH (20:56)
[2019-07-21] MEDS: traZODone 50 MG TAB PO PRN (20:57)
[2019-07-21] MEDS: OLANZapine 5 MG TAB PO SCH (20:57)
[2019-07-21] MEDS: DIVALPROEX 250 MG TAB PO SCH (20:57)
[2019-07-21] MEDS: NORTRIPTYLINE 25 MG CAP PO SCH (20:57)
[2019-07-21] MEDS: cloNIDine 0.1 MG TAB PO SCH (20:59)
[2019-07-22] MEDS: NICOTINE POLACRILEX 2 MG GUM PO PRN ×4 (05:57→21:12)
[2019-07-22] MEDS: CYCLOBENZAPRINE 5MG TABLET PO SCH ×3 (05:57→21:45)
[2019-07-22] MEDS: LEVOTHYROXINE 75MCG TABLET (0.075MG) PO SCH (05:57)
[2019-07-22 06:07] VITALS: BP 130/85
[2019-07-22] MEDS: TIOTROPIUM INHALER/CAPSULE (SPIRIVA) INH SCH (07:37)
[2019-07-22] MEDS: BREXPIPRAZOLE 2MG TABLET (REXULTI) PO SCH (08:05)
[2019-07-22] MEDS: TRIHEXYPHENIDYL 2 MG TAB PO SCH (08:05)
[2019-07-22] MEDS: PILL CUTTER 1 EACH XX PRN (08:05)
[2019-07-22] MEDS: TAMSULOSIN 0.4 MG CAP PO SCH (08:06)
[2019-07-22] MEDS: cloZAPine 100 MG TAB (S0136) PO SCH ×2 (08:06→21:10)
[2019-07-22] MEDS: MULTIVITAMINS/MINERALS THERAP 1 TAB PO SCH (08:06)
[2019-07-22] MEDS: DOCUSATE SODIUM 100 MG CAP PO SCH ×2 (08:06→21:12)
[2019-07-22] MEDS: DIVALPROEX 500 MG TAB PO SCH ×2 (08:06→21:11)
[2019-07-22] MEDS: PANTOPRAZOLE 40MG TAB (PROTONIX) PO SCH ×2 (08:06→21:12)
[2019-07-22 16:25] VITALS: BP 124/77
[2019-07-22] MEDS: cloNIDine 0.1 MG TAB PO SCH (21:10)
[2019-07-22] MEDS: NORTRIPTYLINE 25 MG CAP PO SCH (21:10)
[2019-07-22] MEDS: OLANZapine 5 MG TAB PO SCH (21:11)
[2019-07-22] MEDS: GABAPENTIN 100 MG CAP PO SCH (21:11)
[2019-07-22] MEDS: DIVALPROEX 250 MG TAB PO SCH (21:11)
[2019-07-22] MEDS: traZODone 50 MG TAB PO PRN (21:12)
[2019-07-23 06:46] VITALS: BP 123/86
[2019-07-23] MEDS: CYCLOBENZAPRINE 5MG TABLET PO SCH ×3 (06:56→21:13)
[2019-07-23] MEDS: LEVOTHYROXINE 75MCG TABLET (0.075MG) PO SCH (06:56)
[2019-07-23] MEDS: NICOTINE POLACRILEX 2 MG GUM PO PRN ×4 (07:21→21:07)
[2019-07-23 07:28] LABS: BASO # 0.1 10^3/uL (0.0-0.2); BASO % 0.7 % (0.0-1.0); EOS # 0.2 10^3/uL (0.0-0.5); EOS % 1.6 % (0.0-3.0); HEMATOCRIT 39.3 % (42.0-52.0); HEMOGLOBIN 13.1 g/dl (13.5-17.5); LYMPH % 40.8 % (24.0-44.0); MEAN CORPUSCULAR HGB CONC 33.3 g/dl (32.0-36.5); MEAN CORPUSCULAR VOLUME 93.1 fl (80.0-96.0); MONO # 1.1 10^3/uL (0.0-0.8); MONO % 11.4 % (0.0-5.0); NEUTROPHILS # 4.4 10^3/uL (1.5-8.5); NEUTROPHILS % 44.9 % (36.0-66.0); PLATELET COUNT, AUTOMATED 178 10^3/uL (150-450); RED BLOOD COUNT 4.22 10^6/uL (4.30-6.10); WHITE BLOOD COUNT 9.8 10^3/uL (4.0-10.0)
[2019-07-23] MEDS: TIOTROPIUM INHALER/CAPSULE (SPIRIVA) INH SCH (07:36)
[2019-07-23] MEDS: TRIHEXYPHENIDYL 2 MG TAB PO SCH (08:58)
[2019-07-23] MEDS: DIVALPROEX 500 MG TAB PO SCH ×2 (08:59→21:12)
[2019-07-23] MEDS: BREXPIPRAZOLE 2MG TABLET (REXULTI) PO SCH (08:59)
[2019-07-23] MEDS: TAMSULOSIN 0.4 MG CAP PO SCH (08:59)
[2019-07-23] MEDS: cloZAPine 100 MG TAB (S0136) PO SCH ×2 (08:59→21:12)
[2019-07-23] MEDS: DOCUSATE SODIUM 100 MG CAP PO SCH ×2 (08:59→21:12)
[2019-07-23] MEDS: PANTOPRAZOLE 40MG TAB (PROTONIX) PO SCH ×2 (08:59→21:12)
[2019-07-23] MEDS: PILL CUTTER 1 EACH XX PRN (08:59)
[2019-07-23] MEDS: MULTIVITAMINS/MINERALS THERAP 1 TAB PO SCH (08:59)
[2019-07-23 16:37] VITALS: BP 125/80
[2019-07-23 21:11] VITALS: BP 120/77
[2019-07-23] MEDS: cloNIDine 0.1 MG TAB PO SCH (21:11)
[2019-07-23] MEDS: GABAPENTIN 100 MG CAP PO SCH (21:12)
[2019-07-23] MEDS: DIVALPROEX 250 MG TAB PO SCH (21:12)
[2019-07-23] MEDS: OLANZapine 5 MG TAB PO SCH (21:13)
[2019-07-23] MEDS: NORTRIPTYLINE 25 MG CAP PO SCH (21:13)
[2019-07-23] MEDS: traZODone 50 MG TAB PO PRN (21:13)
[2019-07-24] MEDS: LEVOTHYROXINE 75MCG TABLET (0.075MG) PO SCH (06:12)
[2019-07-24] MEDS: CYCLOBENZAPRINE 5MG TABLET PO SCH (06:12)
[2019-07-24 06:44] VITALS: BP 121/72
[2019-07-24] MEDS: NICOTINE POLACRILEX 2 MG GUM PO PRN ×3 (06:45→11:50)
[2019-07-24] MEDS: PANTOPRAZOLE 40MG TAB (PROTONIX) PO SCH (08:12)
[2019-07-24] MEDS: DOCUSATE SODIUM 100 MG CAP PO SCH (08:12)
[2019-07-24] MEDS: TIOTROPIUM INHALER/CAPSULE (SPIRIVA) INH SCH (08:12)
[2019-07-24] MEDS: TAMSULOSIN 0.4 MG CAP PO SCH (08:12)
[2019-07-24] MEDS: MULTIVITAMINS/MINERALS THERAP 1 TAB PO SCH (08:13)
[2019-07-24] MEDS: DIVALPROEX 500 MG TAB PO SCH (08:13)
[2019-07-24] MEDS: BREXPIPRAZOLE 2MG TABLET (REXULTI) PO SCH (08:13)
[2019-07-24] MEDS: cloZAPine 100 MG TAB (S0136) PO SCH (08:13)
[2019-07-24] MEDS: TRIHEXYPHENIDYL 2 MG TAB PO SCH (08:13)
--- NOTE | 2019-07-24 09:17 | MHDSPDOC ---
[facility] Discharge Summary Discharge Summary DATE OF ADMISSION: Jun 26, 2019 at 7:17 pm DATE OF DISCHARGE: Jul 24, 2019 DISCHARGE DIAGNOSES: 1. Schizoaffective disorder, bipolar type. 2. Generalized anxiety disorder. REASON FOR ADMISSION: Patient is a 58 -year-old , male, with a history of schizoaffective d/o, multiple inpatient admits to psych, multiple SA by OD/cutting/hanging who was brought to ED by [facility] after he reported to staff he was feeling depressed and suicidal with plan to cut himself per ED. In ED pt continued to endorse depression with SI and plan to cut himself for 3 days, cause unknown, insistent on being admitted [facility] for treatment of would "bleed out." He denied HI, hallucinations, delusions in the ED. CONSULTANTS INVOLVED: none TEST RESULTS: ANC 4659.3 wnl TREATMENT AND PROGRESS ON THE UNIT : Pt was admitted to [facility], seen for psychiatric assessment and restarted on his outpatient medication. HIs outpatient rexulti was increased to 2mg daily that he tolerated well and feels it's beneficial. He was provided vistaril 50mg q6hr prn anxiety and trazodone 50mg qhs prn insomnia. Pt found his medications beneficial and tolerated them well. He attended groups daily during his stay. His symptoms have only improved mildly with treatment. He was transferred to [facility] for intermediate card tender treat ment. DISCHARGE ASSESSMENT: RPt seen and states he feels "OK" today as he's looking forward to going to [facility] for penitentiary treatment. He is finding his meds beneficial and tolerating them well. Continues to have chronic depression and AH that are low grade, in background, that are chronic. States he's been compliant on his medications. He denies SI/HI, CAH, VH, delusions today. Continues to appear overall depressed but is up socializing with peers in the lounge and groups daily as he likes to daily. MENTAL STATUS EXAMINATION ON DISCHARGE: The patient is alert, oriented and cooperative. Affect remains flat. Volume of speech is still low. Mood is moderately depressed. Greatly improved anxiety with new referral [facility] for intermediate card tender treatment. He denies suicidal thoughts today. Auditory hallucinations are chronic and prominent. No signs of paranoia or thought disorder. Insight and judgment remain fair. No signs of organic deficits. MEDICATIONS ON DISCHARGE: - Rexulti 2 mg every morning - clonidine 0.1 mg at bedtime - Depakote 1250 mg per day - gabapentin 100 mg at bedtime - nortriptyline 100 mg at bedtime - Zyprexa 15 mg at bedtime - clozapine 200 mg twice a day - vistaril 50mg q6hr prn anxiety -protonix 40mg bid PLAN/FOLLOWUP ARRANGEMENTS: Transfer to [facility] for penitentiary treatment. The amount of time spent in the coordination of care for this patient was approximately 30 minutes. Vital Signs/I&Os Vital Signs Date Time Temp Pulse Resp B/P (MAP) Pulse Ox O2 Delivery O2 Flow Rate FiO2 07/24/19 06:44 97.2 87 14 121/72 (88) Medications Scheduled Aspirin (Aspirin EC) 81 Mg Tablet.dr, 81 MG PO DAILY, (Reported) Brexpiprazole (Rexulti) 1 Mg Tablet, 1 MG PO DAILY, (Reported) Clonazepam (Clonazepam) 0.5 Mg Tablet, 0.5 MG PO BID, (Reported) Clonidine Hcl (Clonidine HCl) 0.1 Mg Tablet, 0.1 MG PO QHS, (Reported) Clozapine (Clozapine) 200 Mg Tablet, 200 MG PO BID, (Reported) Divalproex Sodium (Depakote) 250 Mg Tablet.dr, 250 MG PO QHS, (Reported) Divalproex Sodium (Depakote) 500 Mg Tablet.dr, 500 MG PO BID, (Reported) IN THE MORNING AND IN THE AFTERNOON Gabapentin (Neurontin) 100 Mg Capsule, 100 MG PO QHS, (Reported) Levothyroxine Sodium (Synthroid) 75 Mcg Tablet, 75 MCG PO DAILY, (Reported) Multivitamins (Thera M Plus Tablet) 1 Each Tablet, 1 TAB PO DAILY, (Reported) Nortriptyline HCl (Nortriptyline HCl) 25 Mg Capsule, 100 MG PO QHS, (Reported) Olanzapine (Olanzapine) 15 Mg Tablet, 15 MG PO QHS, (Reported) Pantoprazole Sodium (Pantoprazole Sodium) 40 Mg Tablet.dr, 40 MG PO DAILY, (Reported) Tamsulosin HCl (Flomax) 0.4 Mg Capsule, 0.4 MG PO DAILY, (Reported) Tiotropium [place] (Spiriva) 18 Mcg Cap.w.dev, 1 PUFF INH DAILY, (Reported) Trihexyphenidyl HCl (Trihexyphenidyl HCl) 5 Mg Tablet, 5 MG PO DAILY, (Reported) Scheduled PRN Ibuprofen (Ibuprofen) 800 Mg Tablet, 800 MG PO BID PRN for PAIN, (Reported) Polyethylene Glycol 3350 (Miralax) 17 Gm Powd.pack, 17 GM PO DAILY PRN for CONSTIPATION, (Reported) Allergies Coded Allergies: haloperidol (Verified Adverse Reaction, Severe, EPS, Difficulty Breathing, 05/29/19) loxapine (Verified Adverse Reaction, Severe, Tounge protrsion, diff breathing, 05/29/19) lithium (Verified Adverse Reaction, Intermediate, speech problems, 05/29/19) JULIO SPENCE DO Jul 24, 2019 9:17 am
== END 2019-07-24 12:05 | DRG 885 ==
LOC: M ED 14:16 → M ED INP 19:17 → M PSY 22:43
PROVIDERS: ADMIT Psychiatry & Neurology Addiction Medicine; ATTEND Psychiatry & Neurology Psychiatry
DX: F25.0 Schizoaffective disorder, bipolar type (principal); F41.1 Generalized anxiety disorder; F17.290 Nicotine dependence, other tobacco product, uncomplicated; F14.21 Cocaine dependence, in remission; K59.00 Constipation, unspecified; M51.36 Other intervertebral disc degeneration, lumbar region; F11.21 Opioid dependence, in remission; E03.9 Hypothyroidism, unspecified; N40.0 Benign prostatic hyperplasia without lower urinary tract symptoms; Z79.82 Long term (current) use of aspirin; Z79.899 Other long term (current) drug therapy; Z88.8 Allergy status to other drugs, medicaments and biological substances

== ENCOUNTER → 2019-09-22 | Outpatient (CLI) | payer MEDICARE, MEDICAID ==
[~2019-09-22] MED LIST changes: -CLON0.5T2 PO; +CLON0.5T8 PO; +IBUP80TA PO; +NEUR100C PO; +REXU1TAB3 PO
[2019-09-22 08:43] LABS: BASO # 0.1 10^3/uL (0.0-0.2); BASO % 0.4 % (0.0-1.0); EOS # 0.1 10^3/uL (0.0-0.5); HEMATOCRIT 41.7 % (42.0-52.0); HEMOGLOBIN 13.5 g/dl (13.5-17.5); LYMPH # 3.2 10^3/uL (1.5-5.0); LYMPH % 28.3 % (24.0-44.0); MEAN CORPUSCULAR HEMOGLOBIN 31.4 pg (27.0-33.0); MEAN CORPUSCULAR HGB CONC 32.4 g/dl (32.0-36.5); MONO # 1.3 10^3/uL (0.0-0.8); MONO % 11.8 % (0.0-5.0); NEUTROPHILS # 6.6 10^3/uL (1.5-8.5); NEUTROPHILS % 57.8 % (36.0-66.0); PLATELET COUNT, AUTOMATED 190 10^3/uL (150-450); WHITE BLOOD COUNT 11.4 10^3/uL (4.0-10.0)
[2019-09-22 09:11] LABS: ALBUMIN 3.3 GM/DL (3.2-5.2); BILIRUBIN,DIRECT 0.1 MG/DL (0.0-0.2); BILIRUBIN,TOTAL 0.4 MG/DL (0.2-1.0)
[2019-09-26 00:06] LABS: ANCA-ATYPICAL <1:20 titer (Neg:<1:20); CYTOPLASMIC NEUTROP AB ANCA-C <1:20 titer (Neg:<1:20); PERINUCLEAR AB ANCA-P <1:20 titer (Neg:<1:20)
== END ==
LOC: M LAB 08:17
PROVIDERS: ATTEND Nurse Practitioner Psychiatric/Mental Health
DX: F31.9 Bipolar disorder, unspecified (principal); F20.9 Schizophrenia, unspecified

== ENCOUNTER → 2019-11-02 | Outpatient (CLI) | payer MEDICARE, MEDICAID ==
[~2019-11-02] MED LIST changes: +CLON0.5T2 PO; -CLON0.5T8 PO
[2019-11-02 09:19] LABS: BASO % 0.5 % (0.0-1.0); EOS # 0.2 10^3/uL (0.0-0.5); EOS % 1.9 % (0.0-3.0); HEMATOCRIT 41.9 % (42.0-52.0); HEMOGLOBIN 13.5 g/dl (13.5-17.5); LYMPH # 3.2 10^3/uL (1.5-5.0); LYMPH % 37.1 % (24.0-44.0); MEAN CORPUSCULAR HEMOGLOBIN 31.6 pg (27.0-33.0); MEAN CORPUSCULAR HGB CONC 32.2 g/dl (32.0-36.5); MEAN CORPUSCULAR VOLUME 98.1 fl (80.0-96.0); MONO # 0.9 10^3/uL (0.0-0.8); MONO % 10.6 % (0.0-5.0); NEUTROPHILS # 4.2 10^3/uL (1.5-8.5); NEUTROPHILS % 49.3 % (36.0-66.0); PLATELET COUNT, AUTOMATED 197 10^3/uL (150-450); RED BLOOD COUNT 4.27 10^6/uL (4.30-6.10); WHITE BLOOD COUNT 8.5 10^3/uL (4.0-10.0)
[2019-11-02 10:08] LABS: ALBUMIN 3.1 GM/DL (3.2-5.2); BILIRUBIN,DIRECT 0.1 MG/DL (0.0-0.2); BILIRUBIN,TOTAL 0.3 MG/DL (0.2-1.0); TOTAL PROTEIN 6.5 GM/DL (6.4-8.2)
== END ==
LOC: M LAB 08:39
PROVIDERS: ATTEND Nurse Practitioner Psychiatric/Mental Health
DX: F25.0 Schizoaffective disorder, bipolar type (principal)

== ENCOUNTER → 2019-11-17 | Outpatient (CLI) | payer MEDICARE, MEDICAID ==
[~2019-11-17] MED LIST changes: +ARIP1TAB10 PO; +CYCL5TAB PO; +LISI-542 PO; +VENL75CA47 PO
[2019-11-17 09:05] LABS: BASO # 0.1 10^3/uL (0.0-0.2); BASO % 0.6 % (0.0-1.0); EOS # 0.2 10^3/uL (0.0-0.5); EOS % 1.8 % (0.0-3.0); HEMATOCRIT 39.9 % (42.0-52.0); HEMOGLOBIN 13.3 g/dl (13.5-17.5); LYMPH # 3.6 10^3/uL (1.5-5.0); LYMPH % 40.6 % (24.0-44.0); MEAN CORPUSCULAR HEMOGLOBIN 31.7 pg (27.0-33.0); MEAN CORPUSCULAR HGB CONC 33.3 g/dl (32.0-36.5); MONO % 11.3 % (0.0-5.0); NEUTROPHILS % 45.4 % (36.0-66.0); PLATELET COUNT, AUTOMATED 187 10^3/uL (150-450); WHITE BLOOD COUNT 8.8 10^3/uL (4.0-10.0)
[2019-11-17 09:31] LABS: ALBUMIN 3.1 GM/DL (3.2-5.2); BILIRUBIN,DIRECT 0.1 MG/DL (0.0-0.2); BILIRUBIN,TOTAL 0.4 MG/DL (0.2-1.0); TOTAL PROTEIN 6.5 GM/DL (6.4-8.2)
== END ==
LOC: M LAB 08:26
PROVIDERS: ATTEND Nurse Practitioner Psychiatric/Mental Health
DX: F31.9 Bipolar disorder, unspecified (principal)

== ENCOUNTER 2019-11-19 12:34 | Emergency (ER) | payer MEDICARE, MEDICAID ==
[~2019-11-19] VITALS: Ht 177.8 cm; Wt 79.6 kg
[~2019-11-19 12:34] MED LIST changes: -ARIP1TAB10 PO; -CYCL5TAB PO; -LISI-542 PO; -VENL75CA47 PO
[2019-11-19] MEDS ORDERED: ARIP1TAB10 PO (13:05)
[2019-11-19] MEDS ORDERED: VENL75CA47 PO (13:05)
[2019-11-19 13:35] LABS: HEMATOCRIT 41.5 % (42.0-52.0); HEMOGLOBIN 13.4 g/dl (13.5-17.5); MEAN CORPUSCULAR HEMOGLOBIN 31.2 pg (27.0-33.0); MEAN CORPUSCULAR HGB CONC 32.3 g/dl (32.0-36.5); MEAN CORPUSCULAR VOLUME 96.5 fl (80.0-96.0); PLATELET COUNT, AUTOMATED 186 10^3/uL (150-450); WHITE BLOOD COUNT 9.5 10^3/uL (4.0-10.0)
[2019-11-19 13:53] LABS: AMPHETAMINES LEVEL URINE NEGATIVE (NEGATIVE); BARBITURATES URINE NEGATIVE (NEGATIVE); BENZODIAZEPINES URINE NEGATIVE (NEGATIVE); CANNABINOIDS URINE NEGATIVE (NEGATIVE); COCAINE METABOLITE URINE NEGATIVE (NEGATIVE); METHADONE URINE NEGATIVE (NEGATIVE); OPIATES URINE NEGATIVE (NEGATIVE); PHENCYCLIDINE URINE NEGATIVE (NEGATIVE)
[2019-11-19 14:05] LABS: ACETAMINOPHEN LEVEL < 2.0 UG/ML (10.0-30.0); ALBUMIN 3.2 GM/DL (3.2-5.2); ALT/SGPT 25 U/L (12-78); BILIRUBIN,DIRECT 0.2 MG/DL (0.0-0.2); BILIRUBIN,TOTAL 0.4 MG/DL (0.2-1.0); BLOOD UREA NITROGEN 13 MG/DL (7-18); CALCIUM LEVEL 8.6 MG/DL (8.5-10.1); CARBON DIOXIDE LEVEL 25 MEQ/L (21-32); CHLORIDE LEVEL 106 MEQ/L (98-107); CREATININE FOR GFR 1.06 MG/DL (0.70-1.30); ETHYL ALCOHOL (ETHANOL) < 0.003 % (0.000-0.010); GLOMERULAR FILTRATION RATE > 60.0 (>56); GLUCOSE, FASTING 94 MG/DL (70-100); POTASSIUM SERUM 4.4 MEQ/L (3.5-5.1); SALICYLATE LEVEL < 1.7 MG/DL (5.0-30.0); SODIUM LEVEL 139 MEQ/L (136-145); TOTAL PROTEIN 6.8 GM/DL (6.4-8.2); VALPROIC ACID (DEPAKOTE) 84.7 UG/ML (50.0-100.0)
[2019-11-19] MEDS ORDERED: EPINEPHrine 1MG/10ML SYRINGE 1.5IN As Ordered ONE (15:11)
[2019-11-19] MEDS ORDERED: LORazepam 1 MG TAB PO STA (16:00)
[2019-11-19] MEDS ORDERED: CYCL5TAB PO (18:57)
[2019-11-19] MEDS ORDERED: CLON0.5T2 PO (18:57)
[2019-11-19] MEDS ORDERED: LISI-542 PO (18:57)
[2019-11-19] MEDS ORDERED: cloNIDine 0.1 MG TAB PO ONE (21:00)
[2019-11-19] MEDS ORDERED: OLANZapine 5 MG TAB PO ONE (21:00)
[2019-11-19] MEDS ORDERED: cloZAPine 100 MG TAB (S0136) PO ONE (21:00)
[2019-11-19] MEDS ORDERED: GABAPENTIN 100 MG CAP PO ONE (21:00)
[2019-11-19] MEDS ORDERED: DIVALPROEX 500MG *ER* TAB PO ONE (21:00)
[2019-11-20] MEDS ORDERED: TRIHEXYPHENIDYL 2 MG TAB PO ONE (04:00)
[2019-11-20] MEDS ORDERED: LEVOTHYROXINE 75MCG TABLET (0.075MG) PO ONE (07:00)
[2019-11-20] MEDS ORDERED: DIVALPROEX 500MG *ER* TAB PO ONE (09:00)
[2019-11-20] MEDS ORDERED: PANTOPRAZOLE 40MG TAB (PROTONIX) PO ONE (09:00)
[2019-11-20] MEDS ORDERED: MULTIVITAMINS/MINERALS THERAP 1 TAB PO ONE (09:00)
[2019-11-20] MEDS ORDERED: TAMSULOSIN 0.4 MG CAP PO ONE (09:00)
[2019-11-20] MEDS ORDERED: VENLAFAXINE **XR** 75MG CAPSULE PO ONE (09:00)
[2019-11-20] MEDS ORDERED: cloNIDine 0.1 MG TAB PO ONE (09:00)
[2019-11-20] MEDS ORDERED: ARIPiprazole 10 MG TAB PO ONE (09:00)
[2019-11-20 09:08] VITALS: BP 107/75
[2019-11-20] MEDS ORDERED: LORazepam 1 MG TAB PO STA (14:08)
[2019-11-20 16:29] VITALS: BP 103/73
--- NOTE | 2019-11-22 07:35 | ECGEPIP ---
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
== END 2019-11-20 16:36 | disposition short-term general hospital (02) ==
LOC: M ED 12:34
DX: F20.9 Schizophrenia, unspecified (principal); R45.851 Suicidal ideations; I10 Essential (primary) hypertension; J44.9 Chronic obstructive pulmonary disease, unspecified; K21.9 Gastro-esophageal reflux disease without esophagitis; Z88.8 Allergy status to other drugs, medicaments and biological substances; Z79.899 Other long term (current) drug therapy
CPT/HCPCS: 80048; 80076; 80164; 80307; 84443; 85027; 93005; 99284; G0480

== ENCOUNTER → 2019-12-15 | Outpatient (CLI) | payer MEDICARE, MEDICAID ==
[~2019-12-15] MED LIST changes: +ARIP1TAB10 PO; +CYCL5TAB PO; +LISI-542 PO; +VENL75CA47 PO
[2019-12-15 10:09] LABS: BASO % 0.5 % (0.0-1.0); EOS # 0.1 10^3/uL (0.0-0.5); EOS % 1.6 % (0.0-3.0); HEMATOCRIT 43.9 % (42.0-52.0); HEMOGLOBIN 14.2 g/dl (13.5-17.5); LYMPH # 2.8 10^3/uL (1.5-5.0); LYMPH % 36.8 % (24.0-44.0); MEAN CORPUSCULAR HEMOGLOBIN 31.3 pg (27.0-33.0); MEAN CORPUSCULAR HGB CONC 32.3 g/dl (32.0-36.5); MEAN CORPUSCULAR VOLUME 96.9 fl (80.0-96.0); MONO # 0.8 10^3/uL (0.0-0.8); MONO % 10.7 % (0.0-5.0); NEUTROPHILS # 3.8 10^3/uL (1.5-8.5); NEUTROPHILS % 49.9 % (36.0-66.0); PLATELET COUNT, AUTOMATED 198 10^3/uL (150-450); RED BLOOD COUNT 4.53 10^6/uL (4.30-6.10); WHITE BLOOD COUNT 7.7 10^3/uL (4.0-10.0)
[2019-12-15 10:50] LABS: ALBUMIN 3.3 GM/DL (3.2-5.2); BILIRUBIN,DIRECT 0.1 MG/DL (0.0-0.2); BILIRUBIN,TOTAL 0.3 MG/DL (0.2-1.0); TOTAL PROTEIN 6.7 GM/DL (6.4-8.2)
== END ==
LOC: M LAB 08:51
PROVIDERS: ATTEND Nurse Practitioner Psychiatric/Mental Health
DX: F31.9 Bipolar disorder, unspecified (principal)

== ENCOUNTER → 2020-01-10 | Outpatient (CLI) | payer MEDICARE, MEDICAID ==
[2020-01-10 09:46] LABS: BASO # 0.1 10^3/uL (0.0-0.2); BASO % 0.7 % (0.0-1.0); EOS # 0.3 10^3/uL (0.0-0.5); HEMATOCRIT 40.5 % (42.0-52.0); HEMOGLOBIN 13.3 g/dl (13.5-17.5); LYMPH # 3.1 10^3/uL (1.5-5.0); LYMPH % 33.8 % (24.0-44.0); MEAN CORPUSCULAR HEMOGLOBIN 31.5 pg (27.0-33.0); MEAN CORPUSCULAR HGB CONC 32.8 g/dl (32.0-36.5); MONO # 1.1 10^3/uL (0.0-0.8); MONO % 12.2 % (0.0-5.0); NEUTROPHILS # 4.6 10^3/uL (1.5-8.5); NEUTROPHILS % 50.1 % (36.0-66.0); PLATELET COUNT, AUTOMATED 200 10^3/uL (150-450); RED BLOOD COUNT 4.22 10^6/uL (4.30-6.10); WHITE BLOOD COUNT 9.1 10^3/uL (4.0-10.0)
[2020-01-10 10:13] LABS: ALBUMIN 3.1 GM/DL (3.2-5.2); BILIRUBIN,DIRECT 0.1 MG/DL (0.0-0.2); BILIRUBIN,TOTAL 0.3 MG/DL (0.2-1.0); TOTAL PROTEIN 6.3 GM/DL (6.4-8.2)
== END ==
LOC: M LAB 08:47
PROVIDERS: ATTEND Nurse Practitioner Psychiatric/Mental Health
DX: F25.0 Schizoaffective disorder, bipolar type (principal)

== ENCOUNTER → 2020-01-15 | Outpatient (REF) | payer MEDICARE, MEDICAID ==
[2020-01-15 14:03] LABS: BASO # 0.1 10^3/uL (0.0-0.2); BASO % 0.7 % (0.0-1.0); EOS # 0.1 10^3/uL (0.0-0.5); EOS % 1.4 % (0.0-3.0); HEMATOCRIT 39.3 % (42.0-52.0); LYMPH # 2.8 10^3/uL (1.5-5.0); LYMPH % 31.5 % (24.0-44.0); MEAN CORPUSCULAR HEMOGLOBIN 31.6 pg (27.0-33.0); MEAN CORPUSCULAR HGB CONC 33.1 g/dl (32.0-36.5); MEAN CORPUSCULAR VOLUME 95.4 fl (80.0-96.0); MONO # 0.9 10^3/uL (0.0-0.8); MONO % 10.1 % (0.0-5.0); NEUTROPHILS # 4.9 10^3/uL (1.5-8.5); NEUTROPHILS % 55.8 % (36.0-66.0); PLATELET COUNT, AUTOMATED 208 10^3/uL (150-450); RED BLOOD COUNT 4.12 10^6/uL (4.30-6.10); WHITE BLOOD COUNT 8.7 10^3/uL (4.0-10.0)
[2020-01-15 14:21] LABS: ALBUMIN 3.1 GM/DL (3.2-5.2); ALT/SGPT 30 U/L (12-78); BILIRUBIN,TOTAL 0.3 MG/DL (0.2-1.0); BLOOD UREA NITROGEN 18 MG/DL (7-18); CALCIUM LEVEL 8.6 MG/DL (8.5-10.1); CARBON DIOXIDE LEVEL 23 MEQ/L (21-32); CHLORIDE LEVEL 113 MEQ/L (98-107); CREATININE FOR GFR 0.93 MG/DL (0.70-1.30); GLOMERULAR FILTRATION RATE > 60.0 (>56); GLUCOSE, FASTING 96 MG/DL (70-100); POTASSIUM SERUM 4.3 MEQ/L (3.5-5.1); SODIUM LEVEL 142 MEQ/L (136-145); TOTAL PROTEIN 6.4 GM/DL (6.4-8.2)
== END ==
LOC: M LAB REF 12:21
PROVIDERS: ATTEND Nurse Practitioner Family
DX: Z13.9 Encounter for screening, unspecified (principal); F17.210 Nicotine dependence, cigarettes, uncomplicated; E03.9 Hypothyroidism, unspecified

== ENCOUNTER 2020-02-04 22:40 | Inpatient (IN) | payer MEDICARE, MEDICAID ==
[~2020-02-04] VITALS: Ht 177.8 cm; Wt 80.8 kg
[2020-02-04] MEDS ORDERED: DERMABOND TOPICAL SKIN ADHESIVE TOP ONE (23:00)
[2020-02-04] MEDS ORDERED: LIDOCAINE 1% MDV 20ML VIAL SC ONE (23:00)
[2020-02-04] MEDS ORDERED: ARIP1TAB PO (23:06)
[2020-02-04] MEDS ORDERED: COLA100C5 PO (23:06)
[2020-02-04 23:09] LABS: HEMATOCRIT 45.2 % (42.0-52.0); HEMOGLOBIN 15.3 g/dl (13.5-17.5); MEAN CORPUSCULAR HEMOGLOBIN 31.7 pg (27.0-33.0); MEAN CORPUSCULAR HGB CONC 33.8 g/dl (32.0-36.5); MEAN CORPUSCULAR VOLUME 93.6 fl (80.0-96.0); PLATELET COUNT, AUTOMATED 218 10^3/uL (150-450); RED BLOOD COUNT 4.83 10^6/uL (4.30-6.10); WHITE BLOOD COUNT 13.4 10^3/uL (4.0-10.0)
[2020-02-04] MEDS ORDERED: ADACEL/BOOSTRIX VACCINE (DIPHTH/PERTUSS/ACELL/TETANUS)0.5ML SYR (90715) IM ONE (23:30)
[2020-02-04 23:49] LABS: ACETAMINOPHEN LEVEL < 2.0 UG/ML (10.0-30.0); ALBUMIN 3.6 GM/DL (3.2-5.2); ALT/SGPT 24 U/L (12-78); BILIRUBIN,DIRECT 0.2 MG/DL (0.0-0.2); BILIRUBIN,TOTAL 0.5 MG/DL (0.2-1.0); BLOOD UREA NITROGEN 15 MG/DL (7-18); CALCIUM LEVEL 8.7 MG/DL (8.5-10.1); CARBON DIOXIDE LEVEL 26 MEQ/L (21-32); CHLORIDE LEVEL 106 MEQ/L (98-107); ETHYL ALCOHOL (ETHANOL) < 0.003 % (0.000-0.010); GLOMERULAR FILTRATION RATE > 60.0 (>56); GLUCOSE, FASTING 105 MG/DL (70-100); POTASSIUM SERUM 4.1 MEQ/L (3.5-5.1); SALICYLATE LEVEL 1.8 MG/DL (5.0-30.0); SODIUM LEVEL 139 MEQ/L (136-145); TOTAL PROTEIN 7.5 GM/DL (6.4-8.2); VALPROIC ACID (DEPAKOTE) 58.9 UG/ML (50.0-100.0)
[2020-02-05 00:36] LABS: AMPHETAMINES LEVEL URINE NEGATIVE (NEGATIVE); BARBITURATES URINE NEGATIVE (NEGATIVE); BENZODIAZEPINES URINE NEGATIVE (NEGATIVE); CANNABINOIDS URINE NEGATIVE (NEGATIVE); COCAINE METABOLITE URINE NEGATIVE (NEGATIVE); METHADONE URINE NEGATIVE (NEGATIVE); OPIATES URINE NEGATIVE (NEGATIVE); PHENCYCLIDINE URINE NEGATIVE (NEGATIVE)
[2020-02-05] MEDS ORDERED: LORazepam 0.5 MG TAB PO ONE (01:15)
[2020-02-05] MEDS ORDERED: DIVA500T9 PO (01:22)
[2020-02-05] MEDS ORDERED: MAALOX 30 ML SUSP *UDC PO PRN (05:45)
[2020-02-05] MEDS ORDERED: NICOTINE 21MG/24HR 1 EA TRANSDERMAL TD PRN (05:45)
[2020-02-05] MEDS ORDERED: traZODone 50 MG TAB PO PRN (05:45)
[2020-02-05] MEDS ORDERED: MOM 30ML SUSPENSION UDC PO PRN (05:45)
[2020-02-05] MEDS: LEVOTHYROXINE 75MCG TABLET (0.075MG) PO SCH (07:43)
[2020-02-05] MEDS: TIOTROPIUM INHALER/CAPSULE (SPIRIVA) INH SCH (08:17)
[2020-02-05 10:40] VITALS: BP 134/78
--- NOTE | 2020-02-05 11:42 | MHHPEPDOC ---
General Date Of Admission: Feb 05, 2020 Legal Status: 9.39 Chief Complaint "I'm just not feeling well". History of Present Illness HISTORY OF THE PRESENT ILLNESS: Patient is a 59 -year-old , male, with a history of schizoaffective d/o, multiple inpatient admits to psych, multiple SA by OD/cutting/hanging who was brought to ED by [facility] from [facility] where he resides after he cut himself with a razor on his left forearm several times (required 6 sutures) voicing suicidal intent per ED. In ED, pt was reportedly calm, cooperative, yet appearing anxious and rocking back and forth. Pt stated in the ED that the reason he cut himself was b/c "I'm just not feeling well" after he was unable to attend AA due to the COV19 pandemic. Per ED, pt endorsed hopelessness and continued SI. Psychiatric Review of Systems Depression (2 or more weeks): depressed mood, difficulty concentrating, suicidal thoughts Cassi (4 or more days of): denies Psychosis: denies PTSD: denies Anxiety: situational anxiety, stressor related anxiety Anxiety/ 6 months or more of: restlessness, keyed up, difficulty concentrating Past Psychiatric History Previous Psychiatric Diagnosis: schizoaffective d/o diagnosed at 18y/o Previous Psychiatric Admissions: multiple admissions [facility] in past with last 07/[address] [facility] [place] treatment for depression,SI. Per records, over 100 psych admission in the past including [facility] [place] and cait Suicide Attempts: multiple suicide attempts: 3 by hanging, 10 by OD, by cutting self multiple times last 05/30 admit, and has put a gun to his head but not pulled trigger several times in past Psychiatric Follow-up: resides at [facility], med F/U at [facility] Psychiatric medications: Clozaril, clonidine, Zyprexa, trihexyphenidyl, effexor xr, abilify 10mg daily, depakote 500mg bid Past Medical History Medical Problems Hypothyroidism, hypertension, hypercholesterolemia, reflux, and BPH. Head Injury: No Seizures: No Hospitalizations: Yes Surgeries: Yes Family Medical/Psychiatric HX Medical Problems noncontributory Psychiatric Disorders: Yes (father and brother) Addiction: No Suicide Attemps/Completions: Yes (father completed suicide. Brother with severe mental illness who completed suicide via overdose October 2012.) Addiction History nicotine (1ppd), alcohol (24yrs sober), cocaine, opioids, other (cocaine (in past), opioids (pain pills in past), other (history of cannabis and LSD use, denies illicit substance use for over 20yrs, utox neg)) Social History Childhood: born and raised in [place], 2 parent home, 4 siblings, good childhood Abuse/Trauma:denies Current Living Situation: lives in [place] at [facility] Education: GED Employment: has worked several jobs in the past including on at [employer], [employer], [employer] and now receives [employer] Social Support: family, [facility] Legal: denies Marital: single, never , no kids Mental Status Examination General Appearance: well groomed, appears stated age, hospital scubs/clothing Build: average Demeanor: very figety Eye Contact: fair Activity: anxious Behavior: cooperative, restless Speech: clear, spontaneous, normal volume, reg/rate,rhythm,volume Mood: depressed, anxious Mood "anxious" Affect: constricted (to anxiety), congruent, anxious Thought Process: logical/linear, depressed, intact Thought Content (Delusions): none reported, denies SI, HI, AVH (has SI but no plan/intent, will not harm himself on unit, feels safe here) Thought Content (Other): preoccupied, obsessional Thought Content (Aggressive): none reported Perception (Hallucinations): none reported Perception (Other): none reported Cognition (Impairment of): none reported Cognition(Intelligence Est.): average Oriented: Awake, Alert, Oriented times three Insight: poor Judgment: Poor Psychosis: Denies Diagnoses Schizoaffective disorder, bipolar type generalized anxiety disorder history of polysubstance dependence in term remission A-FIB/CHADSVASC A-FIB History Current/History of A-Fib/PAF?: No Assessment Pt seen and states "I was doing pretty good and then I stopped going to AA and my life feel about... feeling anxious b/c of coronavirus... wanting to harm myself for the past 5 days." States he feels "ok" this morning and safe on the unit. Agreeable to restarting his outpatient medications. Denies SI here and states he won't harm himself here. Denies HI, hallucinations, delusions. Appears anxious but thoughts are linear and logical. Feels safe here. Depakote level 58.9 (low therapeutic). Initial Treatment Plan 1. Patient was admitted on a 939 status. 2. Complete history was obtained. 3. With patients permission, family will be contacted and database will be expanded. 4. Patients medication regimen will be reviewed and changed accordingly. 5. Patient will be provided with protected environment. 6. Patient will be treated with individual, group, and milieu therapies. 7. Patient will receive supportive psych-education. 8. Discharge planning will commence immediately. 9. Outpatient follow-up treatment will be strongly recommended. 10. The initial treatment plan will focus initially on: * Depression. * Risk for suicide. 11. restart outpatient meds, get cbc with diff for anc ESTIMATED LENGTH OF STAY: 7-10 DAYS. TIME SPENT COUNSELING AND COORDINATING INITIAL CARE: minutes. Vital Signs Vital Signs Date Time Temp Pulse Resp B/P (MAP) Pulse Ox O2 Delivery O2 Flow Rate FiO2 02/05/20 06:32 96.5 86 18 104/77 (86) 96 Room Air Laboratory Data 24H Labs Laboratory Tests 2 02/04/20 22:57: Nucleated Red Blood Cells % (auto) 0.0, Anion Gap 7L, Glomerular Filtration Rate > 60.0, Calcium Level 8.7, Total Bilirubin 0.5, Direct Bilirubin 0.2, Aspartate Amino Transf (AST/SGOT) 14, Alanine Aminotransferase (ALT/SGPT) 24, Alkaline Phosphatase 85, Total Protein 7.5, Albumin 3.6, Albumin/Globulin Ratio 0.92L, Thyroid Stimulating Hormone (TSH) 3.660, Salicylates Level 1.8L, Urine Opiates Screen NEGATIVE, Urine Methadone Screen NEGATIVE, Acetaminophen Level < 2.0L, Urine Barbiturates Screen NEGATIVE, Valproic Acid (Depakene) Level 58.9, Urine Phencyclidine Screen NEGATIVE, Urine Amphetamines Screen NEGATIVE, Urine Benzodiazepines Screen NEGATIVE, Urine Cocaine Metabolite Screen NEGATIVE, Urine Cannabinoids Screen NEGATIVE, Ethyl Alcohol Level < 0.003 CBC/BMP Laboratory Tests 02/04/20 22:57 Medications Scheduled Aripiprazole (Aripiprazole) 10 Mg Tablet, 10 MG PO DAILY, (Reported) Clonidine Hcl (Clonidine HCl) 0.1 Mg Tablet, 0.1 MG PO QHS, (Reported) Clozapine (Clozapine) 200 Mg Tablet, 200 MG PO BID, (Reported) Divalproex Sodium (Divalproex Sodium ER) 500 Mg Tab.er.24h, 500 MG PO BID, (Reported) PATIENT SAYS HE MAY TAKE 500MG QAM AND 1000MG QHS, NOT SURE Docusate Sodium (Colace) 100 Mg Capsule, 100 MG PO BID, (Reported) Levothyroxine Sodium (Synthroid) 75 Mcg Tablet, 75 MCG PO DAILY, (Reported) Lisinopril (Lisinopril) 5 Mg Tablet, 5 MG PO DAILY, (Reported) Multivitamins (Thera M Plus Tablet) 1 Each Tablet, 1 TAB PO DAILY, (Reported) Olanzapine (Olanzapine) 15 Mg Tablet, 15 MG PO QHS, (Reported) Pantoprazole Sodium (Pantoprazole Sodium) 40 Mg Tablet.dr, 40 MG PO DAILY, (Reported) Tamsulosin HCl (Flomax) 0.4 Mg Capsule, 0.4 MG PO DAILY, (Reported) Tiotropium [place] (Spiriva) 18 Mcg Cap.w.dev, 1 PUFF INH DAILY, (Reported) Trihexyphenidyl HCl (Trihexyphenidyl HCl) 5 Mg Tablet, 5 MG PO DAILY, (Reported) Venlafaxine HCl (Venlafaxine HCl ER) 75 Mg Cap.er.24h, 75 MG PO DAILY, (Reported) Scheduled PRN Cyclobenzaprine HCl (Cyclobenzaprine HCl) 5 Mg Tablet, 5 MG PO TID PRN for MUSCLE SPASMS, (Reported) Allergies Coded Allergies: haloperidol (Verified Adverse Reaction, Severe, EPS, Difficulty Breathing, 05/29/19) loxapine (Verified Adverse Reaction, Severe, Tounge protrsion, diff breathing, 05/29/19) lithium (Verified Adverse Reaction, Intermediate, speech problems, 05/29/19) JULIO SPENCE DO Feb 05, 2020 11:42
[2020-02-05] MEDS ORDERED: CYCLOBENZAPRINE 5MG TABLET PO PRN (11:45)
[2020-02-05] MEDS: DOCUSATE SODIUM 100 MG CAP PO SCH ×2 (11:59→20:18)
[2020-02-05] MEDS: cloZAPine 100 MG TAB (S0136) PO SCH ×2 (11:59→20:19)
[2020-02-05] MEDS: ARIPiprazole 10 MG TAB PO SCH (12:00)
[2020-02-05] MEDS: NICOTINE POLACRILEX 2 MG GUM PO PRN ×2 (12:00→16:45)
[2020-02-05] MEDS ORDERED: PILL CUTTER 1 EACH XX PRN (12:00)
[2020-02-05] MEDS: DIVALPROEX 500MG *ER* TAB PO SCH ×2 (12:00→20:19)
[2020-02-05] MEDS: PANTOPRAZOLE 40MG TAB (PROTONIX) PO SCH (12:12)
[2020-02-05] MEDS: MULTIVITAMINS/MINERALS THERAP 1 TAB PO SCH (12:12)
[2020-02-05] MEDS: TAMSULOSIN 0.4 MG CAP PO SCH (12:12)
[2020-02-05] MEDS: VENLAFAXINE **XR** 75MG CAPSULE PO SCH (12:17)
[2020-02-05] MEDS: lisinopriL 5 MG TAB PO SCH (12:17)
[2020-02-05] MEDS: TRIHEXYPHENIDYL 2 MG TAB PO SCH (12:18)
[2020-02-05 12:49] LABS: BASO # 0.1 10^3/uL (0.0-0.2); BASO % 0.6 % (0.0-1.0); EOS # 0.1 10^3/uL (0.0-0.5); EOS % 1.2 % (0.0-3.0); HEMATOCRIT 43.9 % (42.0-52.0); HEMOGLOBIN 15.2 g/dl (13.5-17.5); LYMPH # 3.1 10^3/uL (1.5-5.0); LYMPH % 32.6 % (24.0-44.0); MEAN CORPUSCULAR HGB CONC 34.6 g/dl (32.0-36.5); MEAN CORPUSCULAR VOLUME 92.4 fl (80.0-96.0); MONO % 10.8 % (0.0-5.0); NEUTROPHILS # 5.2 10^3/uL (1.5-8.5); NEUTROPHILS % 54.4 % (36.0-66.0); PLATELET COUNT, AUTOMATED 232 10^3/uL (150-450); RED BLOOD COUNT 4.75 10^6/uL (4.30-6.10); WHITE BLOOD COUNT 9.5 10^3/uL (4.0-10.0)
--- NOTE | 2020-02-05 13:20 | HPEPDOC ---
General Date of Admission Feb 05, 2020 at 05:39 Date of Service: Feb 05, 2020 Chief Complaint The patient is a 59-year-old male admitted with a reason for visit of Unspecified Depressive Disorder. Source: Patient Exam Limitations: No limitations Timing/Duration: 24 hours, Week(s) Severity: Moderate History of Present Illness Patient is 59 years old male with past medical history of anxiety, depression, COPD, hyperlipidemia, hypertension presented to the hospital after suicidal attempt. During my interview patient states that he doesn't have any chest pain, headache, any skin changes, palpitations, shortness of breath, diarrhea, dysuria. Home Medications Scheduled Aripiprazole (Aripiprazole) 10 Mg Tablet, 10 MG PO DAILY, (Reported) Clonidine Hcl (Clonidine HCl) 0.1 Mg Tablet, 0.1 MG PO QHS, (Reported) Clozapine (Clozapine) 200 Mg Tablet, 200 MG PO BID, (Reported) Divalproex Sodium (Divalproex Sodium ER) 500 Mg Tab.er.24h, 500 MG PO BID, (Reported) PATIENT SAYS HE MAY TAKE 500MG QAM AND 1000MG QHS, NOT SURE Docusate Sodium (Colace) 100 Mg Capsule, 100 MG PO BID, (Reported) Levothyroxine Sodium (Synthroid) 75 Mcg Tablet, 75 MCG PO DAILY, (Reported) Lisinopril (Lisinopril) 5 Mg Tablet, 5 MG PO DAILY, (Reported) Multivitamins (Thera M Plus Tablet) 1 Each Tablet, 1 TAB PO DAILY, (Reported) Olanzapine (Olanzapine) 15 Mg Tablet, 15 MG PO QHS, (Reported) Pantoprazole Sodium (Pantoprazole Sodium) 40 Mg Tablet.dr, 40 MG PO DAILY, (Reported) Tamsulosin HCl (Flomax) 0.4 Mg Capsule, 0.4 MG PO DAILY, (Reported) Tiotropium [place] (Spiriva) 18 Mcg Cap.w.dev, 1 PUFF INH DAILY, (Reported) Trihexyphenidyl HCl (Trihexyphenidyl HCl) 5 Mg Tablet, 5 MG PO DAILY, (Reported) Venlafaxine HCl (Venlafaxine HCl ER) 75 Mg Cap.er.24h, 75 MG PO DAILY, (Reported) Allergies Coded Allergies: haloperidol (Verified Adverse Reaction, Severe, EPS, Difficulty Breathing, 05/29/19) loxapine (Verified Adverse Reaction, Severe, Tounge protrsion, diff breathing, 05/29/19) lithium (Verified Adverse Reaction, Intermediate, speech problems, 05/29/19) Past Medical History Medical History Hypothyroidism, hypertension, hypercholesterolemia, reflux, and BPH, COPD Family History His father committed suicide Social History * Smoker: current smoker Alcohol: Denies Drugs: denies A-FIB/CHADSVASC A-FIB History Current/History of A-Fib/PAF?: No Current PO Anticoag Therapy: No Review of Systems Constitutional: Denies: Chills Eyes: Denies: Pain, Vision change ENT: Denies: Head Aches Skin: Denies: Rash, Lesions Pulmonary: Denies: Dyspnea, Cough Cardiovascular: Denies: Chest Pain, Palpitations Gastrointestinal: Denies: Nausea, Vomiting Genitourinary: Denies: Dysuria, Frequency Hematologic: Denies: Bruising, Bleeding Excessively Endocrine: Denies: Polyphagia Musculoskeletal: Denies: Neck Pain Neurological: Denies: Weakness Psych: Reports: Anxiety, Depression; Denies: Mood Normal Physical Examination General Exam: Positive: Alert, Cooperative Eye Exam: Positive: PERRLA ENT Exam: Positive: Atraumatic Neck Exam: Positive: Supple; Negative: JVD Chest Exam: Positive: Clear to auscultation Heart Exam: Positive: Rate Normal Telemetry: Positive: No significant arrhythmia Abdomen Exam: Positive: Normal bowel sounds Extremity Exam: Negative: Clubbing Skin Exam: Positive: Nl turgor and temperature Neuro Exam: Positive: Normal Gait, Strength at 5/5 X4 ext Psych Exam: Positive: Mental status NL Vital Signs Vital Signs Date Time Temp Pulse Resp B/P (MAP) Pulse Ox O2 Delivery O2 Flow Rate FiO2 02/05/20 12:17 104/77 02/05/20 06:32 96.5 86 18 96 Room Air Laboratory Data Labs 24H Laboratory Tests 2 02/04/20 22:57: Nucleated Red Blood Cells % (auto) 0.0, Anion Gap 7L, Glomerular Filtration Rate > 60.0, Calcium Level 8.7, Total Bilirubin 0.5, Direct Bilirubin 0.2, Aspartate Amino Transf (AST/SGOT) 14, Alanine Aminotransferase (ALT/SGPT) 24, Alkaline Phosphatase 85, Total Protein 7.5, Albumin 3.6, Albumin/Globulin Ratio 0.92L, Thyroid Stimulating Hormone (TSH) 3.660, Salicylates Level 1.8L, Urine Opiates Screen NEGATIVE, Urine Methadone Screen NEGATIVE, Acetaminophen Level < 2.0L, Urine Barbiturates Screen NEGATIVE, Valproic Acid (Depakene) Level 58.9, Urine Phencyclidine Screen NEGATIVE, Urine Amphetamines Screen NEGATIVE, Urine Benzodiazepines Screen NEGATIVE, Urine Cocaine Metabolite Screen NEGATIVE, Urine Cannabinoids Screen NEGATIVE, Ethyl Alcohol Level < 0.003 02/05/20 12:12: Nucleated Red Blood Cells % (auto) 0.0, Immature Granulocyte % (Auto) 0.4, Neutrophils (%) (Auto) 54.4, Lymphocytes (%) (Auto) 32.6, Monocytes (%) (Auto) 10.8H, Eosinophils (%) (Auto) 1.2, Basophils (%) (Auto) 0.6, Neutrophils # (Auto) 5.2, Lymphocytes # (Auto) 3.1, Monocytes # (Auto) 1.0H, Eosinophils # (Auto) 0.1, Basophils # (Auto) 0.1 CBC/BMP Laboratory Tests 02/04/20 22:57 02/05/20 12:12 Assessment/Plan Patient is 59 years old male with past medical history of anxiety, depression, COPD, hyperlipidemia, hypertension presented to the hospital after suicidal attempt. During my interview patient states that he doesn't have any chest pain, headache, any skin changes, palpitations, shortness of breath, diarrhea, dysuria. Problems (1) COPD (chronic obstructive pulmonary disease) Problem Text: Not in acute exacerbation Albuterol when necessary (2) Hyperlipidemia Status: Chronic Problem Text: Will check lipid panel (3) Hypertension Status: Chronic Problem Text: Continue lisinopril Blood pressures under control (4) Hypothyroidism Status: Chronic Problem Text: Continue levothyroxine Plan / VTE VTE Prophylaxis Ordered?: No VTE Exclusion Mechanical Proph: Low Risk for VTE ALEX ORO DO Feb 05, 2020 13:20
[2020-02-05 14:07] LABS: CHOLESTEROL RISK RATIO 3.826 (<5)
[2020-02-05 17:28] VITALS: BP 121/79
[2020-02-05] MEDS: OLANZapine 5 MG TAB PO SCH (20:19)
[2020-02-05] MEDS: cloNIDine 0.1 MG TAB PO SCH (20:23)
[2020-02-06] MEDS: LEVOTHYROXINE 75MCG TABLET (0.075MG) PO SCH (05:49)
[2020-02-06 06:16] VITALS: BP 108/59
[2020-02-06] MEDS: ARIPiprazole 10 MG TAB PO SCH (08:48)
[2020-02-06] MEDS: TRIHEXYPHENIDYL 2 MG TAB PO SCH (08:48)
--- NOTE | 2020-02-06 08:48 | MHIPNPDOC ---
[facility] Progress Note Progress Note DATE OF SERVICE: 02/06/20 HISTORY: Patient is a 59 -year-old , male, with a history of schizoaffective d/o, multiple inpatient admits to psych, multiple SA by OD/cutting/hanging who was brought to ED by [facility] from [facility] where he resides after he cut himself with a razor on his left forearm several times (required 6 sutures) voicing suicidal intent per ED. In ED, pt was reportedly calm, cooperative, yet appearing anxious and rocking back and forth. Pt stated in the ED that the reason he cut himself was b/c "I'm just not feeling well" after he was unable to attend AA due to the COV19 pandemic. Per ED, pt endorsed hopelessness and continued SI. Pt seen and states "I was doing pretty good and then I stopped going to AA and my life feel about... feeling anxious b/c of coronavirus... wanting to harm myself for the past 5 days." States he feels "ok" this morning and safe on the unit. Agreeable to restarting his outpatient medications. Denies SI here and states he won't harm himself here. Denies HI, hallucinations, delusions. Appears anxious but thoughts are linear and logical. Feels safe here. Depakote level 58.9 (low therapeutic). VITAL SIGNS: See below. NEW TEST RESULTS: ANC [id number] wnl CURRENT MEDICATIONS: See below. MENTAL STATUS EXAMINATION: General Appearance: well groomed, appears stated age, own clothing Build: average Demeanor: cooperative, calmer Eye Contact: fair Activity: cooperative, calmer Behavior: cooperative, restless Speech: clear, spontaneous, normal volume, reg/rate,rhythm,volume Mood: depressed, anxious Mood "better" Affect: constricted, congruent, blunted Thought Process: logical/linear, depressed, intact Thought Content (Delusions): none reported, denies SI, HI, AVH (has SI but no plan/intent, will not harm himself on unit, feels safe here) Thought Content (Other): preoccupied, obsessional Thought Content (Aggressive): none reported Perception (Hallucinations): none reported Perception (Other): none reported Cognition (Impairment of): none reported Cognition(Intelligence Est.): average Oriented: Awake, Alert, Oriented times three Insight: poor Judgment: Poor Psychosis: Denies DIAGNOSES: Schizoaffective disorder, bipolar type generalized anxiety disorder history of polysubstance dependence in long-term remission ASSESSMENT:Pt seen in day room stating he feels a little better today and he does appear less anxious this am. Mood is still blunted and constricted to a depressive state. States he slept well last night. Feels he is tolerating his medications and they're beneficial and does not feel anything needs to be changed as he states he was on it and doing well for awhile at [facility]. He is attending groups and finding them helpful. Continues to endorse passive SI with no plan or intent. He denies HI, hallucinations, delusions. Pt feels safe here. MANAGEMENT PLAN: continue plan. -abilify 10mg daily - clonidine 0.1 mg at bedtime - Depakote 500mg bid - Zyprexa 15 mg at bedtime - clozapine 200 mg twice a day TIME SPENT: 30 minutes. Vital Signs Vital Signs Date Time Temp Pulse Resp B/P (MAP) Pulse Ox O2 Delivery O2 Flow Rate FiO2 02/06/20 06:16 96.6 85 18 108/59 (75) 02/05/20 17:28 97 Room Air Laboratory Data 24H Labs Laboratory Tests 2 02/05/20 12:09: Triglycerides Level 124, Total Cholesterol 199, LDL Cholesterol 122H, Non-HDL Cholesterol (LDL + VLDL) 147, Total HDL Cholesterol 52, Cholesterol/HDL Ratio 3.826 02/05/20 12:12: Immature Granulocyte % (Auto) 0.4, Neutrophils (%) (Auto) 54.4, Lymphocytes (%) (Auto) 32.6, Monocytes (%) (Auto) 10.8H, Eosinophils (%) (Auto) 1.2, Basophils (%) (Auto) 0.6, Neutrophils # (Auto) 5.2, Lymphocytes # (Auto) 3.1, Monocytes # (Auto) 1.0H, Eosinophils # (Auto) 0.1, Basophils # (Auto) 0.1, Nucleated Red Blood Cells % (auto) 0.0 CBC/BMP Laboratory Tests 02/05/20 12:12 Current Medications Current Medications Medications (Trade) Dose Ordered Sig/Billy Route PRN Reason Start Time Stop Time Status Last Admin Dose Admin Acetaminophen (Tylenol Tab) 650 mg Q6HP PRN PO HEADACHE or DISCOMFORT 02/05/20 05:45 Al Hydrox/Mg Hydrox/Simethicone (Mylanta) 30 ml Q4HP PRN PO HEARTBURN/INDIGESTION 02/05/20 05:45 Aripiprazole (AbiLIFY) 10 mg DAILY PO 02/05/20 09:00 02/05/20 12:00 Clonidine HCl (Catapres) 0.1 mg QHS PO 02/05/20 21:00 02/05/20 20:23 Clozapine (Clozaril) 200 mg BID PO 02/05/20 09:00 02/05/20 20:19 Cyclobenzaprine HCl (Flexeril) 5 mg TID PRN PO MUSCLE SPASMS 02/05/20 11:45 02/05/20 12:38 DC Divalproex Sodium (Depakote Er) 500 mg BID PO 02/05/20 09:00 02/05/20 20:19 Docusate Sodium (Colace) 100 mg BID PO 02/05/20 09:00 02/05/20 20:18 Home Med (Med Rec Complete!) ASDIRECTED XX 02/05/20 01:30 02/05/20 01:26 DC Levothyroxine Sodium (Synthroid) 75 mcg DAILY@0600 PO 02/05/20 06:00 02/06/20 05:49 Lisinopril (Prinivil) 5 mg DAILY PO 02/05/20 09:00 02/05/20 12:17 Magnesium Hydroxide (Milk Of Magnesia) 30 ml DAILYPRN PRN PO CONSTIPATION 02/05/20 05:45 Multivitamins (Theragram-M) 1 tab DAILY PO 02/05/20 09:00 02/05/20 12:12 Nicotine (Nicoderm Cq 21mg) 1 patch DAILY PRN TD Nicotine Withdrawl 02/05/20 05:45 02/05/20 10:57 DC Nicotine (Nicorette) 2 mg Q2HP PRN PO NICOTINE WITHDRAWAL 02/05/20 11:00 02/05/20 16:45 Olanzapine (ZyPREXA) 15 mg QHS PO 02/05/20 21:00 02/05/20 20:19 Pantoprazole Sodium (Protonix) 40 mg DAILY PO 02/05/20 09:00 3/23/20 12:12 Tamsulosin HCl (Flomax) 0.4 mg DAILY PO 02/05/20 09:00 02/05/20 12:12 Tiotropium [place] (Spiriva Handihaler) 1 inhalation DAILY@0800 INH 02/05/20 08:00 02/05/20 08:17 Trazodone HCl (Desyrel) 50 mg QHSP PRN PO INSOMNIA 02/05/20 05:45 Trihexyphenidyl HCl (Artane) 5 mg DAILY PO 02/05/20 09:00 02/05/20 12:18 Venlafaxine HCl (Effexor Xr) 75 mg DAILY PO 02/05/20 09:00 02/05/20 12:17 Allergies Coded Allergies: haloperidol (Verified Adverse Reaction, Severe, EPS, Difficulty Breathing, 05/29/19) loxapine (Verified Adverse Reaction, Severe, Tounge protrsion, diff breathing, 05/29/19) lithium (Verified Adverse Reaction, Intermediate, speech problems, 05/29/19) JULIO SPENCE DO Feb 06, 2020 08:48
[2020-02-06] MEDS: MULTIVITAMINS/MINERALS THERAP 1 TAB PO SCH (08:49)
[2020-02-06] MEDS: DOCUSATE SODIUM 100 MG CAP PO SCH ×2 (08:49→20:08)
[2020-02-06] MEDS: TAMSULOSIN 0.4 MG CAP PO SCH (08:49)
[2020-02-06] MEDS: PANTOPRAZOLE 40MG TAB (PROTONIX) PO SCH (08:49)
[2020-02-06] MEDS: cloZAPine 100 MG TAB (S0136) PO SCH ×2 (08:49→20:07)
[2020-02-06] MEDS: VENLAFAXINE **XR** 75MG CAPSULE PO SCH (08:49)
[2020-02-06] MEDS: DIVALPROEX 500MG *ER* TAB PO SCH ×2 (08:49→20:07)
[2020-02-06] MEDS: lisinopriL 5 MG TAB PO SCH (09:01)
[2020-02-06] MEDS: NICOTINE POLACRILEX 2 MG GUM PO PRN (09:05)
[2020-02-06] MEDS: TIOTROPIUM INHALER/CAPSULE (SPIRIVA) INH SCH (11:59)
[2020-02-06 15:51] VITALS: BP 118/71
[2020-02-06] MEDS: cloNIDine 0.1 MG TAB PO SCH (20:07)
[2020-02-06] MEDS: OLANZapine 5 MG TAB PO SCH (20:08)
[2020-02-07] MEDS: LEVOTHYROXINE 75MCG TABLET (0.075MG) PO SCH (05:47)
[2020-02-07 06:25] VITALS: BP 112/58
[2020-02-07] MEDS: TIOTROPIUM INHALER/CAPSULE (SPIRIVA) INH SCH (08:31)
[2020-02-07] MEDS: DOCUSATE SODIUM 100 MG CAP PO SCH ×2 (08:32→20:16)
[2020-02-07] MEDS: VENLAFAXINE **XR** 75MG CAPSULE PO SCH (08:32)
[2020-02-07] MEDS: ARIPiprazole 10 MG TAB PO SCH (08:32)
[2020-02-07] MEDS: PANTOPRAZOLE 40MG TAB (PROTONIX) PO SCH (08:32)
[2020-02-07] MEDS: TAMSULOSIN 0.4 MG CAP PO SCH (08:32)
[2020-02-07] MEDS: MULTIVITAMINS/MINERALS THERAP 1 TAB PO SCH (08:32)
[2020-02-07] MEDS: lisinopriL 5 MG TAB PO SCH (08:33)
[2020-02-07] MEDS: cloZAPine 100 MG TAB (S0136) PO SCH ×2 (08:33→20:16)
[2020-02-07] MEDS: DIVALPROEX 500MG *ER* TAB PO SCH ×2 (08:33→20:16)
[2020-02-07] MEDS: TRIHEXYPHENIDYL 2 MG TAB PO SCH (08:34)
--- NOTE | 2020-02-07 08:37 | MHIPNPDOC ---
[facility] Progress Note Progress Note DATE OF SERVICE: 02/07/20 HISTORY: Patient is a 59 -year-old , male, with a history of schizoaffective d/o, multiple inpatient admits to psych, multiple SA by OD/c utting/hanging who was brought to ED by [facility] from [facility] where he resides after he cut himself with a razor on his left forearm several times (required 6 sutures) voicing suicidal intent per ED. In ED, pt was reportedly calm, cooperative, yet appearing anxious and rocking back and forth. Pt stated in the ED that the reason he cut himself was b/c "I'm just not feeling well" after he was unable to attend AA due to the COV19 pandemic. Per ED, pt endorsed hopelessness and continued SI. Pt seen and states "I was doing pretty good and then I stopped going to AA and my life feel about... feeling anxious b/c of coronavirus... wanting to harm myself for the past 5 days." States he feels "ok" this morning and safe on the unit. Agreeable to restarting his outpatient medications. Denies SI here and states he won't harm himself here. Denies HI, hallucinations, delusions. Appears anxious but thoughts are linear and logical. Feels safe here. Depakote level 58.9 (low therapeutic). VITAL SIGNS: See below. NEW TEST RESULTS: ANC 5225 wnl CURRENT MEDICATIONS: See below. MENTAL STATUS EXAMINATION: General Appearance: well groomed, appears stated age, own clothing Build: average Demeanor: cooperative, calmer Eye Contact: fair Activity: cooperative, calmer Behavior: cooperative, restless Speech: clear, spontaneous, normal volume, reg/rate,rhythm,volume Mood: depressed, anxious Mood "ok" Affect: constricted, congruent, blunted Thought Process: logical/linear, depressed, intact Thought Content (Delusions): none reported, denies SI, HI, AVH (has SI but no plan/intent, will not harm himself on unit, feels safe here) Thought Content (Other): preoccupied, obsessional Thought Content (Aggressive): none reported Perception (Hallucinations): none reported Perception (Other): none reported Cognition (Impairment of): none reported Cognition(Intelligence Est.): average Oriented: Awake, Alert, Oriented times three Insight: poor Judgment: Poor Psychosis: Denies DIAGNOSES: Schizoaffective disorder, bipolar type generalized anxiety disorder history of polysubstance dependence in correction remission ASSESSMENT:Pt seen in the milieu stating he feels a "ok" today and that he only feels a little anxious occasionally thru out the day. Mood remains blunted and constricted to a depressive state. States he slept well last night. Feels he is tolerating his medications and they're beneficial and does not feel anything needs to be changed as he states he was on it and doing well for awhile at [facility]. He is attending groups and finding them helpful. Continues to endorse passive SI with no plan or intent. He denies HI, hallucinations, delusions. Pt feels safe here. MANAGEMENT PLAN: continue plan. -abilify 10mg daily - clonidine 0.1 mg at bedtime - Depakote 500mg bid - Zyprexa 15 mg at bedtime - clozapine 200 mg twice a day TIME SPENT: 30 minutes. Vital Signs Vital Signs Date Time Temp Pulse Resp B/P (MAP) Pulse Ox O2 Delivery O2 Flow Rate FiO2 02/07/20 06:25 97.4 78 18 112/58 (76) 02/05/20 17:28 97 Room Air Current Medications Current Medications Medications (Trade) Dose Ordered Sig/Billy Route PRN Reason Start Time Stop Time Status Last Admin Dose Admin Acetaminophen (Tylenol Tab) 650 mg Q6HP PRN PO HEADACHE or DISCOMFORT 02/05/20 05:45 Al Hydrox/Mg Hydrox/Simethicone (Mylanta) 30 ml Q4HP PRN PO HEARTBURN/INDIGESTION 02/05/20 05:45 Aripiprazole (AbiLIFY) 10 mg DAILY PO 02/05/20 09:00 02/06/20 08:48 Clonidine HCl (Catapres) 0.1 mg QHS PO 02/05/20 21:00 02/06/20 20:07 Clozapine (Clozaril) 200 mg BID PO 02/05/20 09:00 02/06/20 20:07 Cyclobenzaprine HCl (Flexeril) 5 mg TID PRN PO MUSCLE SPASMS 02/05/20 11:45 02/05/20 12:38 DC Divalproex Sodium (Depakote Er) 500 mg BID PO 02/05/20 09:00 02/06/20 20:07 Docusate Sodium (Colace) 100 mg BID PO 02/05/20 09:00 02/06/20 20:08 Home Med (Med Rec Complete!) ASDIRECTED XX 02/05/20 01:30 02/05/20 01:26 DC Levothyroxine Sodium (Synthroid) 75 mcg DAILY@0600 PO 02/05/20 06:00 02/07/20 05:47 Lisinopril (Prinivil) 5 mg DAILY PO 02/05/20 09:00 02/06/20 09:01 Magnesium Hydroxide (Milk Of Magnesia) 30 ml DAILYPRN PRN PO CONSTIPATION 02/05/20 05:45 Multivitamins (Theragram-M) 1 tab DAILY PO 02/05/20 09:00 02/06/20 08:49 Nicotine (Nicoderm Cq 21mg) 1 patch DAILY PRN TD Nicotine Withdrawl 02/05/20 05:45 02/05/20 10:57 DC Nicotine (Nicorette) 2 mg Q2HP PRN PO NICOTINE WITHDRAWAL 02/05/20 11:00 02/06/20 09:05 Olanzapine (ZyPREXA) 15 mg QHS PO 02/05/20 21:00 02/06/20 20:08 Pantoprazole Sodium (Protonix) 40 mg DAILY PO 02/05/20 09:00 02/06/20 08:49 Tamsulosin HCl (Flomax) 0.4 mg DAILY PO 02/05/20 09:00 02/06/20 08:49 Tiotropium [place] (Spiriva Handihaler) 1 inhalation DAILY@0800 INH 02/05/20 08:00 02/06/20 11:59 Trazodone HCl (Desyrel) 50 mg QHSP PRN PO INSOMNIA 02/05/20 05:45 Trihexyphenidyl HCl (Artane) 5 mg DAILY PO 02/05/20 09:00 02/06/20 08:48 Venlafaxine HCl (Effexor Xr) 75 mg DAILY PO 02/05/20 09:00 02/06/20 08:49 Allergies Coded Allergies: haloperidol (Verified Adverse Reaction, Severe, EPS, Difficulty Breathing, 05/29/19) loxapine (Verified Adverse Reaction, Severe, Tounge protrsion, diff breathing, 05/29/19) lithium (Verified Adverse Reaction, Intermediate, speech problems, 05/29/19) JULIO SPENCE DO Feb 07, 2020 8:37 am
[2020-02-07 16:00] VITALS: BP 131/74
[2020-02-07] MEDS: hydrOXYzine 50 MG TAB PO PRN (18:28)
[2020-02-07] MEDS: OLANZapine 5 MG TAB PO SCH (20:16)
[2020-02-07] MEDS: cloNIDine 0.1 MG TAB PO SCH (20:18)
[2020-02-08] MEDS: LEVOTHYROXINE 75MCG TABLET (0.075MG) PO SCH (05:44)
[2020-02-08 06:16] VITALS: BP 107/75
[2020-02-08] MEDS: TRIHEXYPHENIDYL 2 MG TAB PO SCH (08:07)
[2020-02-08] MEDS: TAMSULOSIN 0.4 MG CAP PO SCH (08:09)
[2020-02-08] MEDS: DIVALPROEX 500MG *ER* TAB PO SCH ×2 (08:09→20:14)
[2020-02-08] MEDS: cloZAPine 100 MG TAB (S0136) PO SCH ×2 (08:09→20:14)
[2020-02-08] MEDS: PANTOPRAZOLE 40MG TAB (PROTONIX) PO SCH (08:10)
[2020-02-08] MEDS: MULTIVITAMINS/MINERALS THERAP 1 TAB PO SCH (08:10)
[2020-02-08] MEDS: DOCUSATE SODIUM 100 MG CAP PO SCH ×2 (08:10→20:15)
[2020-02-08] MEDS: VENLAFAXINE **XR** 75MG CAPSULE PO SCH (08:10)
[2020-02-08] MEDS: lisinopriL 5 MG TAB PO SCH (08:11)
[2020-02-08] MEDS: ARIPiprazole 10 MG TAB PO SCH (08:11)
[2020-02-08] MEDS: TIOTROPIUM INHALER/CAPSULE (SPIRIVA) INH SCH (08:14)
--- NOTE | 2020-02-08 09:12 | MHIPNPDOC ---
[facility] Progress Note Progress Note DATE OF SERVICE: 02/08/20 HISTORY: Patient is a 59 -year-old , male, with a history of schizoaffective d/o, multiple inpatient admits to psych, multiple SA by OD/c utting/hanging who was brought to ED by [facility] from [facility] where he resides after he cut himself with a razor on his left forearm several times (required 6 sutures) voicing suicidal intent per ED. In ED, pt was reportedly calm, cooperative, yet appearing anxious and rocking back and forth. Pt stated in the ED that the reason he cut himself was b/c "I'm just not feeling well" after he was unable to attend AA due to the COV19 pandemic. Per ED, pt endorsed hopelessness and continued SI. Pt seen and states "I was doing pretty good and then I stopped going to AA and my life feel about... feeling anxious b/c of coronavirus... wanting to harm myself for the past 5 days." States he feels "ok" this morning and safe on the unit. Agreeable to restarting his outpatient medications. Denies SI here and states he won't harm himself here. Denies HI, hallucinations, delusions. Appears anxious but thoughts are linear and logical. Feels safe here. Depakote level 58.9 (low therapeutic). VITAL SIGNS: See below. NEW TEST RESULTS: ANC 5225 wnl CURRENT MEDICATIONS: See below. MENTAL STATUS EXAMINATION: General Appearance: well groomed, appears stated age, own clothing Build: average Demeanor: cooperative, calmer Eye Contact: fair Activity: cooperative, calmer Behavior: cooperative, restless Speech: clear, spontaneous, normal volume, reg/rate,rhythm,volume Mood: less depressed, less anxious Mood "ok" Affect: less constricted, congruent, blunted Thought Process: logical/linear, depressed, intact Thought Content (Delusions): none reported, denies SI, HI, AVH, denies passive SI today Thought Content (Other): preoccupied, obsessional Thought Content (Aggressive): none reported Perception (Hallucinations): none reported Perception (Other): none reported Cognition (Impairment of): none reported Cognition(Intelligence Est.): average Oriented: Awake, Alert, Oriented times three Insight: poor Judgment: Poor Psychosis: Denies DIAGNOSES: Schizoaffective disorder, bipolar type generalized anxiety disorder history of polysubstance dependence in penitentiary 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 States he did have anxiety last night but took a vistaril and it improved so he could sleep well last night. Mood remains blunted and constricted to a depressive state. States he slept well last night. Feels he is tolerating his medications and the y're beneficial and continues to feel anything needs to be changed as he states he was on it and doing well for awhile at [facility]. States he believes he may be ready to return to [facility] next week if he continues to improve regarding his anxiety. He is attending groups and finding them helpful. Denies passive SI with no plan or intent. He denies HI, hallucinations, delusions. Pt feels safe here. MANAGEMENT PLAN: continue plan. -abilify 10mg daily - clonidine 0.1 mg at bedtime - Depakote 500mg bid - Zyprexa 15 mg at bedtime - clozapine 200 mg twice a day TIME SPENT: 30 minutes. Vital Signs Vital Signs Date Time Temp Pulse Resp B/P (MAP) Pulse Ox O2 Delivery O2 Flow Rate FiO2 02/08/20 08:11 127/72 02/08/20 06:16 97.4 79 18 02/05/20 17:28 97 Room Air Current Medications Current Medications Medications (Trade) Dose Ordered Sig/Billy Route PRN Reason Start Time Stop Time Status Last Admin Dose Admin Acetaminophen (Tylenol Tab) 650 mg Q6HP PRN PO HEADACHE or DISCOMFORT 02/05/20 05:45 Al Hydrox/Mg Hydrox/Simethicone (Mylanta) 30 ml Q4HP PRN PO HEARTBURN/INDIGESTION 02/05/20 05:45 Aripiprazole (AbiLIFY) 10 mg DAILY PO 02/05/20 09:00 02/08/20 08:11 Clonidine HCl (Catapres) 0.1 mg QHS PO 02/05/20 21:00 02/07/20 20:18 Clozapine (Clozaril) 200 mg BID PO 02/05/20 09:00 02/08/20 08:09 Cyclobenzaprine HCl (Flexeril) 5 mg TID PRN PO MUSCLE SPASMS 02/05/20 11:45 02/05/20 12:38 DC Divalproex Sodium (Depakote Er) 500 mg BID PO 02/05/20 09:00 02/08/20 08:09 Docusate Sodium (Colace) 100 mg BID PO 02/05/20 09:00 02/08/20 08:10 Home Med (Med Rec Complete!) ASDIRECTED XX 02/05/20 01:30 02/05/20 01:26 DC Hydroxyzine HCl (Atarax) 50 mg Q6HP PRN PO ANXIETY/AGITATION 02/07/20 18:15 02/07/20 18:28 Levothyroxine Sodium (Synthroid) 75 mcg DAILY@0600 PO 02/05/20 06:00 02/08/20 05:44 Lisinopril (Prinivil) 5 mg DAILY PO 02/05/20 09:00 02/08/20 08:11 Magnesium Hydroxide (Milk Of Magnesia) 30 ml DAILYPRN PRN PO CONSTIPATION 02/05/20 05:45 Multivitamins (Theragram-M) 1 tab DAILY PO 02/05/20 09:00 02/08/20 08:10 Nicotine (Nicoderm Cq 21mg) 1 patch DAILY PRN TD Nicotine Withdrawl 02/05/20 05:45 02/05/20 10:57 DC Nicotine (Nicorette) 2 mg Q2HP PRN PO NICOTINE WITHDRAWAL 02/05/20 11:00 02/06/20 09:05 Olanzapine (ZyPREXA) 15 mg QHS PO 02/05/20 21:00 02/07/20 20:16 Pantoprazole Sodium (Protonix) 40 mg DAILY PO 02/05/20 09:00 02/08/20 08:10 Tamsulosin HCl (Flomax) 0.4 mg DAILY PO 02/05/20 09:00 02/08/20 08:09 Tiotropium [place] (Spiriva Handihaler) 1 inhalation DAILY@0800 INH 02/05/20 08:00 02/08/20 08:14 Trazodone HCl (Desyrel) 50 mg QHSP PRN PO INSOMNIA 02/05/20 05:45 Trihexyphenidyl HCl (Artane) 5 mg DAILY PO 02/05/20 09:00 02/08/20 08:07 Venlafaxine HCl (Effexor Xr) 75 mg DAILY PO 02/05/20 09:00 02/08/20 08:10 Allergies Coded Allergies: haloperidol (Verified Adverse Reaction, Severe, EPS, Difficulty Breathing, 05/29/19) loxapine (Verified Adverse Reaction, Severe, Tounge protrsion, diff breathing, 05/29/19) lithium (Verified Adverse Reaction, Intermediate, speech problems, 05/29/19) JULIO SPENCE DO Feb 08, 2020 9:12 am
[2020-02-08] MEDS: NICOTINE POLACRILEX 2 MG GUM PO PRN (12:44)
[2020-02-08 16:00] VITALS: BP 144/42
[2020-02-08] MEDS: hydrOXYzine 50 MG TAB PO PRN (18:17)
[2020-02-08] MEDS: cloNIDine 0.1 MG TAB PO SCH (20:14)
[2020-02-08] MEDS: OLANZapine 5 MG TAB PO SCH (20:15)
[2020-02-09] MEDS: LEVOTHYROXINE 75MCG TABLET (0.075MG) PO SCH (05:48)
[2020-02-09 06:28] VITALS: BP 130/84
[2020-02-09] MEDS: MULTIVITAMINS/MINERALS THERAP 1 TAB PO SCH (08:47)
[2020-02-09] MEDS: PANTOPRAZOLE 40MG TAB (PROTONIX) PO SCH (08:47)
[2020-02-09] MEDS: ARIPiprazole 10 MG TAB PO SCH (08:47)
[2020-02-09] MEDS: TAMSULOSIN 0.4 MG CAP PO SCH (08:47)
[2020-02-09] MEDS: TIOTROPIUM INHALER/CAPSULE (SPIRIVA) INH SCH (08:48)
[2020-02-09] MEDS: VENLAFAXINE **XR** 75MG CAPSULE PO SCH (08:48)
[2020-02-09] MEDS: cloZAPine 100 MG TAB (S0136) PO SCH ×2 (08:48→20:07)
[2020-02-09] MEDS: DOCUSATE SODIUM 100 MG CAP PO SCH ×2 (08:48→20:07)
[2020-02-09] MEDS: DIVALPROEX 500MG *ER* TAB PO SCH ×2 (08:48→20:07)
[2020-02-09] MEDS: lisinopriL 5 MG TAB PO SCH (08:48)
[2020-02-09] MEDS: TRIHEXYPHENIDYL 2 MG TAB PO SCH (08:49)
--- NOTE | 2020-02-09 08:56 | MHIPNPDOC ---
[facility] Progress Note Progress Note DATE OF SERVICE: 02/09/20 HISTORY: Patient is a 59 -year-old , male, with a history of schizoaffective d/o, multiple inpatient admits to psych, multiple SA by OD/c utting/hanging who was brought to ED by [facility] from [facility] where he resides after he cut himself with a razor on his left forearm several times (required 6 sutures) voicing suicidal intent per ED. In ED, pt was reportedly calm, cooperative, yet appearing anxious and rocking back and forth. Pt stated in the ED that the reason he cut himself was b/c "I'm just not feeling well" after he was unable to attend AA due to the COV19 pandemic. Per ED, pt endorsed hopelessness and continued SI. Pt seen and states "I was doing pretty good and then I stopped going to AA and my life feel about... feeling anxious b/c of coronavirus... wanting to harm myself for the past 5 days." States he feels "ok" this morning and safe on the unit. Agreeable to restarting his outpatient medications. Denies SI here and states he won't harm himself here. Denies HI, hallucinations, delusions. Appears anxious but thoughts are linear and logical. Feels safe here. Depakote level 58.9 (low therapeutic). VITAL SIGNS: See below. NEW TEST RESULTS: ANC 5225 wnl CURRENT MEDICATIONS: See below. MENTAL STATUS EXAMINATION: General Appearance: well groomed, appears stated age, own clothing Build: average Demeanor: cooperative, calmer Eye Contact: fair Activity: cooperative, calmer Behavior: cooperative, restless Speech: clear, spontaneous, normal volume, reg/rate,rhythm,volume Mood: less depressed, less anxious Mood "alright" Affect: less constricted, congruent, blunted (baseline affect) Thought Process: logical/linear, depressed, intact Thought Content (Delusions): none reported, denies SI, HI, AVH, denies passive SI today Thought Content (Other): preoccupied, obsessional Thought Content (Aggressive): none reported Perception (Hallucinations): none reported Perception (Other): none reported Cognition (Impairment of): none reported Cognition(Intelligence Est.): average Oriented: Awake, Alert, Oriented times three Insight: poor Judgment: Poor Psychosis: Denies DIAGNOSES: Schizoaffective disorder, bipolar type generalized anxiety disorder history of polysubstance dependence 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 States he again had anxiety last night but took a vistaril and it improved so he could sleep well last night. Mood remains blunted and constricted to a depressive state but this is usually him at baseline as pt is well known to me. States he slept well last night. Feels he is tolerating his medications and they're beneficial and continues to feel anything needs to be changed as he states he was on it and doing well for awhile at [facility]. States he believes he may be ready to return to [facility] next week if he continues to improve regarding his anxiety. He is attending groups and finding them helpful. Denies passive SI with no plan or intent. He denies HI, hallucinations, delusions. Pt feels safe here. MANAGEMENT PLAN: continue plan. -abilify 10mg daily - clonidine 0.1 mg at bedtime - Depakote 500mg bid - Zyprexa 15 mg at bedtime - clozapine 200 mg twice a day TIME SPENT: 30 minutes. Vital Signs Vital Signs Date Time Temp Pulse Resp B/P (MAP) Pulse Ox O2 Delivery O2 Flow Rate FiO2 02/09/20 08:48 130/80 02/09/20 06:28 98.3 76 18 02/05/20 17:28 97 Room Air Current Medications Current Medications Medications (Trade) Dose Ordered Sig/Billy Route PRN Reason Start Time Stop Time Status Last Admin Dose Admin Acetaminophen (Tylenol Tab) 650 mg Q6HP PRN PO HEADACHE or DISCOMFORT 02/05/20 05:45 Al Hydrox/Mg Hydrox/Simethicone (Mylanta) 30 ml Q4HP PRN PO HEARTBURN/INDIGESTION 02/05/20 05:45 Aripiprazole (AbiLIFY) 10 mg DAILY PO 02/05/20 09:00 02/09/20 08:47 Clonidine HCl (Catapres) 0.1 mg QHS PO 02/05/20 21:00 02/08/20 20:14 Clozapine (Clozaril) 200 mg BID PO 02/05/20 09:00 02/09/20 08:48 Cyclobenzaprine HCl (Flexeril) 5 mg TID PRN PO MUSCLE SPASMS 02/05/20 11:45 02/05/20 12:38 DC Divalproex Sodium (Depakote Er) 500 mg BID PO 02/05/20 09:00 02/09/20 08:48 Docusate Sodium (Colace) 100 mg BID PO 02/05/20 09:00 02/09/20 08:48 Home Med (Med Rec Complete!) ASDIRECTED XX 02/05/20 01:30 02/05/20 01:26 DC Hydroxyzine HCl (Atarax) 50 mg Q6HP PRN PO ANXIETY/AGITATION 02/07/20 18:15 02/08/20 18:17 Levothyroxine Sodium (Synthroid) 75 mcg DAILY@0600 PO 02/05/20 06:00 02/09/20 05:48 Lisinopril (Prinivil) 5 mg DAILY PO 02/05/20 09:00 02/09/20 08:48 Magnesium Hydroxide (Milk Of Magnesia) 30 ml DAILYPRN PRN PO CONSTIPATION 02/05/20 05:45 Multivitamins (Theragram-M) 1 tab DAILY PO 02/05/20 09:00 02/09/20 08:47 Nicotine (Nicoderm Cq 21mg) 1 patch DAILY PRN TD Nicotine Withdrawl 02/05/20 05:45 02/05/20 10:57 DC Nicotine (Nicorette) 2 mg Q2HP PRN PO NICOTINE WITHDRAWAL 02/05/20 11:00 02/08/20 12:44 Olanzapine (ZyPREXA) 15 mg QHS PO 02/05/20 21:00 02/08/20 20:15 Pantoprazole Sodium (Protonix) 40 mg DAILY PO 02/05/20 09:00 02/09/20 08:47 Tamsulosin HCl (Flomax) 0.4 mg DAILY PO 02/05/20 09:00 02/09/20 08:47 Tiotropium [place] (Spiriva Handihaler) 1 inhalation DAILY@0800 INH 02/05/20 08:00 02/09/20 08:48 Trazodone HCl (Desyrel) 50 mg QHSP PRN PO INSOMNIA 02/05/20 05:45 Trihexyphenidyl HCl (Artane) 5 mg DAILY PO 02/05/20 09:00 02/09/20 08:49 Venlafaxine HCl (Effexor Xr) 75 mg DAILY PO 02/05/20 09:00 02/09/20 08:48 Allergies Coded Allergies: haloperidol (Verified Adverse Reaction, Severe, EPS, Difficulty Breathing, 05/29/19) loxapine (Verified Adverse Reaction, Severe, Tounge protrsion, diff breathing, 05/29/19) lithium (Verified Adverse Reaction, Intermediate, speech problems, 05/29/19) JULIO SPENCE DO Feb 09, 2020 8:56 am
[2020-02-09] MEDS: NICOTINE POLACRILEX 2 MG GUM PO PRN ×3 (09:00→20:08)
[2020-02-09 15:58] VITALS: BP 107/63
[2020-02-09] MEDS: OLANZapine 5 MG TAB PO SCH (20:07)
[2020-02-09] MEDS: ACETAMINOPHEN TAB 650MG DOSE (2X325MG) PO PRN (20:07)
[2020-02-09] MEDS: cloNIDine 0.1 MG TAB PO SCH (20:08)
[2020-02-10] MEDS: LEVOTHYROXINE 75MCG TABLET (0.075MG) PO SCH (05:54)
[2020-02-10 06:21] VITALS: BP 115/72
[2020-02-10] MEDS: TIOTROPIUM INHALER/CAPSULE (SPIRIVA) INH SCH (08:49)
[2020-02-10] MEDS: TAMSULOSIN 0.4 MG CAP PO SCH (08:50)
[2020-02-10] MEDS: MULTIVITAMINS/MINERALS THERAP 1 TAB PO SCH (08:50)
[2020-02-10] MEDS: VENLAFAXINE **XR** 75MG CAPSULE PO SCH (08:50)
[2020-02-10] MEDS: DOCUSATE SODIUM 100 MG CAP PO SCH ×2 (08:50→20:14)
[2020-02-10] MEDS: PANTOPRAZOLE 40MG TAB (PROTONIX) PO SCH (08:50)
[2020-02-10] MEDS: NICOTINE POLACRILEX 2 MG GUM PO PRN ×3 (08:51→20:14)
[2020-02-10] MEDS: DIVALPROEX 500MG *ER* TAB PO SCH ×2 (08:51→20:16)
[2020-02-10] MEDS: lisinopriL 5 MG TAB PO SCH (08:51)
[2020-02-10] MEDS: ARIPiprazole 10 MG TAB PO SCH (08:51)
[2020-02-10] MEDS: TRIHEXYPHENIDYL 2 MG TAB PO SCH (08:51)
[2020-02-10] MEDS: cloZAPine 100 MG TAB (S0136) PO SCH ×2 (08:51→20:14)
[2020-02-10] MEDS: ACETAMINOPHEN TAB 650MG DOSE (2X325MG) PO PRN ×2 (08:52→14:32)
[2020-02-10 15:38] VITALS: BP 145/72
[2020-02-10] MEDS: cloNIDine 0.1 MG TAB PO SCH (20:14)
[2020-02-10] MEDS: OLANZapine 5 MG TAB PO SCH (20:15)
[2020-02-11] MEDS: LEVOTHYROXINE 75MCG TABLET (0.075MG) PO SCH (05:57)
[2020-02-11 06:30] VITALS: BP 135/68
[2020-02-11] MEDS: MULTIVITAMINS/MINERALS THERAP 1 TAB PO SCH (08:37)
[2020-02-11] MEDS: PANTOPRAZOLE 40MG TAB (PROTONIX) PO SCH (08:40)
[2020-02-11] MEDS: DIVALPROEX 500MG *ER* TAB PO SCH ×2 (08:42→20:54)
[2020-02-11] MEDS: lisinopriL 5 MG TAB PO SCH (08:42)
[2020-02-11] MEDS: TRIHEXYPHENIDYL 2 MG TAB PO SCH (08:42)
[2020-02-11] MEDS: TAMSULOSIN 0.4 MG CAP PO SCH (08:43)
[2020-02-11] MEDS: cloZAPine 100 MG TAB (S0136) PO SCH ×2 (08:43→20:53)
[2020-02-11] MEDS: TIOTROPIUM INHALER/CAPSULE (SPIRIVA) INH SCH (08:44)
[2020-02-11] MEDS: DOCUSATE SODIUM 100 MG CAP PO SCH ×2 (08:44→20:53)
[2020-02-11] MEDS: ARIPiprazole 10 MG TAB PO SCH (08:45)
[2020-02-11] MEDS: VENLAFAXINE **XR** 75MG CAPSULE PO SCH (08:45)
[2020-02-11] MEDS: NICOTINE POLACRILEX 2 MG GUM PO PRN ×2 (08:46→20:55)
[2020-02-11 18:11] VITALS: BP 104/66
[2020-02-11] MEDS: OLANZapine 5 MG TAB PO SCH (20:54)
[2020-02-11] MEDS: ACETAMINOPHEN TAB 650MG DOSE (2X325MG) PO PRN (20:54)
[2020-02-11] MEDS: cloNIDine 0.1 MG TAB PO SCH (20:54)
[2020-02-12] MEDS: LEVOTHYROXINE 75MCG TABLET (0.075MG) PO SCH (05:56)
[2020-02-12 06:19] VITALS: BP 120/75
[2020-02-12] MEDS: DIVALPROEX 500MG *ER* TAB PO SCH ×2 (08:56→20:18)
[2020-02-12] MEDS: TRIHEXYPHENIDYL 2 MG TAB PO SCH (08:56)
[2020-02-12] MEDS: ARIPiprazole 10 MG TAB PO SCH (08:56)
[2020-02-12] MEDS: PANTOPRAZOLE 40MG TAB (PROTONIX) PO SCH (08:57)
[2020-02-12] MEDS: cloZAPine 100 MG TAB (S0136) PO SCH ×2 (08:57→20:18)
[2020-02-12] MEDS: MULTIVITAMINS/MINERALS THERAP 1 TAB PO SCH (08:57)
[2020-02-12] MEDS: VENLAFAXINE **XR** 75MG CAPSULE PO SCH (08:57)
[2020-02-12] MEDS: DOCUSATE SODIUM 100 MG CAP PO SCH ×2 (08:57→20:18)
[2020-02-12] MEDS: NICOTINE POLACRILEX 2 MG GUM PO PRN ×4 (08:57→20:22)
[2020-02-12] MEDS: lisinopriL 5 MG TAB PO SCH (09:00)
[2020-02-12] MEDS: TAMSULOSIN 0.4 MG CAP PO SCH (09:00)
[2020-02-12] MEDS: TIOTROPIUM INHALER/CAPSULE (SPIRIVA) INH SCH (09:07)
--- NOTE | 2020-02-12 09:22 | MHIPNPDOC ---
[facility] Progress Note Progress Note DATE OF SERVICE: 02/12/20 HISTORY: Patient is a 59 -year-old , male, with a history of schizoaffective d/o, multiple inpatient admits to psych, multiple SA by OD/c utting/hanging who was brought to ED by [facility] from [facility] where he resides after he cut himself with a razor on his left forearm several times (required 6 sutures) voicing suicidal intent per ED. In ED, pt was reportedly calm, cooperative, yet appearing anxious and rocking back and forth. Pt stated in the ED that the reason he cut himself was b/c "I'm just not feeling well" after he was unable to attend AA due to the COV19 pandemic. Per ED, pt endorsed hopelessness and continued SI. Pt seen and states "I was doing pretty good and then I stopped going to AA and my life feel about... feeling anxious b/c of coronavirus... wanting to harm myself for the past 5 days." States he feels "ok" this morning and safe on the unit. Agreeable to restarting his outpatient medications. Denies SI here and states he won't harm himself here. Denies HI, hallucinations, delusions. Appears anxious but thoughts are linear and logical. Feels safe here. Depakote level 58.9 (low therapeutic). VITAL SIGNS: See below. NEW TEST RESULTS: ANC 5225 wnl CURRENT MEDICATIONS: See below. MENTAL STATUS EXAMINATION: General Appearance: well groomed, appears stated age, own clothing Build: average Demeanor: cooperative, calmer Eye Contact: fair Activity: cooperative, calmer Behavior: cooperative, restless Speech: clear, spontaneous, normal volume, reg/rate,rhythm,volume Mood: euthymic Mood "ok" Affect: less constricted, congruent, blunted (baseline affect) Thought Process: logical/linear, depressed, intact Thought Content (Delusions): none reported, denies SI, HI, AVH, denies passive SI today Thought Content (Other): preoccupied, obsessional Thought Content (Aggressive): none reported Perception (Hallucinations): none reported Perception (Other): none reported Cognition (Impairment of): none reported Cognition(Intelligence Est.): average Oriented: Awake, Alert, Oriented times three Insight: poor Judgment: Poor Psychosis: Denies DIAGNOSES: Schizoaffective disorder, bipolar type generalized anxiety disorder history of polysubstance dependence in terminal worker 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 States his anxiety his better and he feels he can return to [facility] tomorrow. Mood remains blunted and constricted to a depressive state but this is usually him at baseline as pt is well known to me. States he slept well last night. Feels he is tolerating his medications and they're beneficial and continues to feel anything needs to be changed as he states he was on it and doing well for awhile at [facility]. He is attending groups and finding them helpful. Denies passive SI with no plan or intent. He denies HI, hallucinations, delusions. Pt feels safe here. MANAGEMENT PLAN: d/c back to [facility] tomorrow -abilify 10mg daily - clonidine 0.1 mg at bedtime - Depakote 500mg bid - Zyprexa 15 mg at bedtime - clozapine 200 mg twice a day TIME SPENT: 30 minutes. Vital Signs Vital Signs Date Time Temp Pulse Resp B/P (MAP) Pulse Ox O2 Delivery O2 Flow Rate FiO2 02/12/20 09:00 113/66 02/12/20 06:19 96.3 80 14 Room Air Current Medications Current Medications Medications (Trade) Dose Ordered Sig/Billy Route PRN Reason Start Time Stop Time Status Last Admin Dose Admin Acetaminophen (Tylenol Tab) 650 mg Q6HP PRN PO HEADACHE or DISCOMFORT 02/05/20 05:45 02/11/20 20:54 Al Hydrox/Mg Hydrox/Simethicone (Mylanta) 30 ml Q4HP PRN PO HEARTBURN/INDIGESTION 02/05/20 05:45 Aripiprazole (AbiLIFY) 10 mg DAILY PO 02/05/20 09:00 02/12/20 08:56 Clonidine HCl (Catapres) 0.1 mg QHS PO 02/05/20 21:00 02/11/20 20:54 Clozapine (Clozaril) 200 mg BID PO 02/05/20 09:00 02/12/20 08:57 Cyclobenzaprine HCl (Flexeril) 5 mg TID PRN PO MUSCLE SPASMS 02/05/20 11:45 02/05/20 12:38 DC Divalproex Sodium (Depakote Er) 500 mg BID PO 02/05/20 09:00 02/12/20 08:56 Docusate Sodium (Colace) 100 mg BID PO 02/05/20 09:00 02/12/20 08:57 Home Med (Med Rec Complete!) ASDIRECTED XX 02/05/20 01:30 02/05/20 01:26 DC Hydroxyzine HCl (Atarax) 50 mg Q6HP PRN PO ANXIETY/AGITATION 02/07/20 18:15 02/08/20 18:17 Levothyroxine Sodium (Synthroid) 75 mcg DAILY@0600 PO 02/05/20 06:00 02/12/20 05:56 Lisinopril (Prinivil) 5 mg DAILY PO 02/05/20 09:00 02/12/20 09:00 Magnesium Hydroxide (Milk Of Magnesia) 30 ml DAILYPRN PRN PO CONSTIPATION 02/05/20 05:45 Miscellaneous (Unresolved Clarification Entry) SEE LABEL COMMENTS DAILY XX 02/11/20 09:00 Cancel Multivitamins (Theragram-M) 1 tab DAILY PO 02/05/20 09:00 02/12/20 08:57 Nicotine (Nicoderm Cq 21mg) 1 patch DAILY PRN TD Nicotine Withdrawl 02/05/20 05:45 02/05/20 10:57 DC Nicotine (Nicorette) 2 mg Q2HP PRN PO NICOTINE WITHDRAWAL 02/05/20 11:00 02/12/20 08:57 Olanzapine (ZyPREXA) 15 mg QHS PO 02/05/20 21:00 02/11/20 20:54 Pantoprazole Sodium (Protonix) 40 mg DAILY PO 02/05/20 09:00 02/12/20 08:57 Tamsulosin HCl (Flomax) 0.4 mg DAILY PO 02/05/20 09:00 02/12/20 09:00 Tiotropium [place] (Spiriva Handihaler) 1 inhalation DAILY@0800 INH 02/05/20 08:00 02/12/20 09:07 Trazodone HCl (Desyrel) 50 mg QHSP PRN PO INSOMNIA 02/05/20 05:45 Trihexyphenidyl HCl (Artane) 5 mg DAILY PO 02/05/20 09:00 02/12/20 08:56 Venlafaxine HCl (Effexor Xr) 75 mg DAILY PO 02/05/20 09:00 02/12/20 08:57 Allergies Coded Allergies: haloperidol (Verified Adverse Reaction, Severe, EPS, Difficulty Breathing, 05/29/19) loxapine (Verified Adverse Reaction, Severe, Tounge protrsion, diff breathing, 05/29/19) lithium (Verified Adverse Reaction, Intermediate, speech problems, 05/29/19) JULIO SPENCE DO Feb 12, 2020 9:22 am
[2020-02-12 18:00] VITALS: BP 124/80
[2020-02-12] MEDS: OLANZapine 5 MG TAB PO SCH (20:18)
[2020-02-12] MEDS: cloNIDine 0.1 MG TAB PO SCH (20:18)
[2020-02-12] MEDS: ACETAMINOPHEN TAB 650MG DOSE (2X325MG) PO PRN (20:22)
[2020-02-13] MEDS: NICOTINE POLACRILEX 2 MG GUM PO PRN ×2 (05:56→08:15)
[2020-02-13] MEDS: LEVOTHYROXINE 75MCG TABLET (0.075MG) PO SCH (05:56)
[2020-02-13 06:50] VITALS: BP 119/71
[2020-02-13] MEDS: TIOTROPIUM INHALER/CAPSULE (SPIRIVA) INH SCH (08:12)
[2020-02-13 08:14] VITALS: BP 116/70
[2020-02-13] MEDS: PANTOPRAZOLE 40MG TAB (PROTONIX) PO SCH (08:14)
[2020-02-13] MEDS: ARIPiprazole 10 MG TAB PO SCH (08:14)
[2020-02-13] MEDS: MULTIVITAMINS/MINERALS THERAP 1 TAB PO SCH (08:14)
[2020-02-13] MEDS: cloZAPine 100 MG TAB (S0136) PO SCH (08:14)
[2020-02-13] MEDS: VENLAFAXINE **XR** 75MG CAPSULE PO SCH (08:14)
[2020-02-13] MEDS: lisinopriL 5 MG TAB PO SCH (08:14)
[2020-02-13] MEDS: TRIHEXYPHENIDYL 2 MG TAB PO SCH (08:14)
[2020-02-13] MEDS: TAMSULOSIN 0.4 MG CAP PO SCH (08:14)
[2020-02-13] MEDS: DOCUSATE SODIUM 100 MG CAP PO SCH (08:14)
[2020-02-13] MEDS: DIVALPROEX 500MG *ER* TAB PO SCH (08:15)
--- NOTE | 2020-02-13 08:24 | MHDSPDOC ---
[facility] Discharge Summary Discharge Summary DATE OF ADMISSION: Feb 05, 2020 at 5:39 am DATE OF DISCHARGE: Feb 13, 2020 DISCHARGE DIAGNOSES: Schizoaffective disorder, bipolar type generalized anxiety disorder history of polysubstance dependence in [facility] remission REASON FOR ADMISSION: Patient is a 59 -year-old , male, with a history of schizoaffective d/o, multiple inpatient admits to [facility], multiple SA by OD/cutting/hanging who was brought to ED by [facility] from [facility] where he resides after he cut himself with a razor on his left forearm several times (required 6 sutures) voicing suicidal intent per ED. In ED, pt was reportedly calm, cooperative, yet appearing anxious and rocking back and forth. Pt stated in the ED that the reason he cut himself was b/c "I'm just not feeling well" after he was unable to attend due to the COV19 pandemic. Per ED, pt endorsed hopelessness and continued SI. Pt seen and states "I was doing pretty good and then I stopped going to AA and my life feel about... feeling anxious b/c of coronavirus... wanting to harm myself for the past 5 days." States he feels "ok" this morning and safe on the unit. Agreeable to restarting his outpatient medications. Denies SI here and states he won't harm himself here. Denies HI, hallucinations, delusions. Appears anxious but thoughts are linear and logical. Feels safe here. Depakote level 58.9 (low therapeutic). CONSULTANTS INVOLVED: none TEST RESULTS: ANC [id number] wnl TREATMENT AND PROGRESS ON THE UNIT : Pt was admitted to [facility], seen for psychiatric assessment and restarted on his outpatient medication. He did not feel his meds needed to be changed as he felt they were beneficial for him and he tolerated them well. He was provided vistaril 50mg q6hr prn anxiety and trazodone 50mg qhs prn insomnia. Pt found his medications beneficial and tolerated them well. He attended groups daily during his stay. His symptoms have only improved with treatment especially his anxiety. He denies depression, anxiety, insomnia, SI/HI, hallucinations, delusions. He was d/c back to [facility] with follow-up at [facility]. DISCHARGE ASSESSMENT: Pt seen in the milieu stating he feels a "good" today and that he's looking forward to returning to [facility]. States his anxiety is greatly improved. Mood remains blunted but euthymic and appears to be his baseline affect as pt is well known to me. States he slept well last night. Feels he is tolerating his medications and they're beneficial. He is attending groups and finding them helpful. Denies passive SI with no plan or intent. He denies depression, anxiety, insomnia, SI/HI, hallucinations, delusions.. Pt feels safe to d/c back to [facility] today. MENTAL STATUS EXAMINATION ON DISCHARGE: General Appearance: well groomed, appears stated age, own clothing Build: average Demeanor: cooperative, calmer Eye Contact: fair Activity: cooperative, calmer Behavior: cooperative, restless Speech: clear, spontaneous, normal volume, reg/rate,rhythm,volume Mood: euthymic Mood "good" Affect: congruent, blunted (baseline affect) Thought Process: logical/linear, depressed, intact Thought Content (Delusions): none reported, denies SI, HI, AVH, denies passive SI today Thought Content (Other): preoccupied, obsessional Thought Content (Aggressive): none reported Perception (Hallucinations): none reported Perception (Other): none reported Cognition (Impairment of): none reported Cognition(Intelligence Est.): average Oriented: Awake, Alert, Oriented times three Insight: fair-good Judgment: fair-good Psychosis: Denies MEDICATIONS ON DISCHARGE: -abilify 10mg daily - clonidine 0.1 mg at bedtime - Depakote 500mg bid - Zyprexa 15 mg at bedtime - clozapine 200 mg twice a day - vistaril 50mg tid prn anxiety PLAN/FOLLOWUP ARRANGEMENTS: D/c back to [facility] with follow-up at [facility]. The amount of time spent in the coordination of care for this patient was approximately 30 minutes. Vital Signs/I&Os Vital Signs Date Time Temp Pulse Resp B/P (MAP) Pulse Ox O2 Delivery O2 Flow Rate FiO2 02/13/20 06:50 97.4 100 16 119/71 (87) 02/12/20 06:19 Room Air Medications Scheduled Aripiprazole (Aripiprazole) 10 Mg Tablet, 10 MG PO DAILY for schizoaffective d/o for 30 Days, #10 Clonidine Hcl (Clonidine HCl) 0.1 Mg Tablet, 0.1 MG PO QHS, (Reported) Clozapine (Clozapine) 200 Mg Tablet, 200 MG PO BID for schizoaffective d/o, #20 Divalproex Sodium (Divalproex Sodium ER) 500 Mg Tab.er.24h, 500 MG PO BID for schizoaffective d/o, #20 PATIENT SAYS HE MAY TAKE 500MG QAM AND 1000MG QHS, NOT SURE Docusate Sodium (Colace) 100 Mg Capsule, 100 MG PO BID for 30 Days, #60 (Reported) Levothyroxine Sodium (Synthroid) 75 Mcg Tablet, 75 MCG PO DAILY, (Reported) Lisinopril (Lisinopril) 5 Mg Tablet, 5 MG PO DAILY, (Reported) Multivitamins (Thera M Plus Tablet) 1 Each Tablet, 1 TAB PO DAILY, (Reported) Olanzapine (Olanzapine) 15 Mg Tablet, 15 MG PO QHS for schizoaffective d/o, #10 Pantoprazole Sodium (Pantoprazole Sodium) 40 Mg Tablet.dr, 40 MG PO DAILY, (Reported) Tamsulosin HCl (Flomax) 0.4 Mg Capsule, 0.4 MG PO DAILY, (Reported) Tiotropium [place] (Spiriva) 18 Mcg Cap.w.dev, 1 PUFF INH DAILY, (Reported) Trihexyphenidyl HCl (Trihexyphenidyl HCl) 5 Mg Tablet, 5 MG PO DAILY, (Reported) Venlafaxine HCl (Venlafaxine HCl ER) 75 Mg Cap.er.24h, 75 MG PO DAILY for mood, #10 Scheduled PRN Hydroxyzine HCl (Hydroxyzine HCl) 50 Mg Tablet, 50 MG PO TIDP PRN for ANXIETY/AGITATION, #30 Allergies Coded Allergies: haloperidol (Verified Adverse Reaction, Severe, EPS, Difficulty Breathing, 05/29/19) loxapine (Verified Adverse Reaction, Severe, Tounge protrsion, diff breathing, 05/29/19) lithium (Verified Adverse Reaction, Intermediate, speech problems, 05/29/19) JULIO SPENCE DO Feb 13, 2020 8:23 am
[2020-02-13] MEDS ORDERED: HYDR50TA70 PO (09:54)
[2020-02-13] MEDS ORDERED: ARIP1TAB PO (09:54)
[2020-02-13] MEDS ORDERED: DIVA500T9 PO (09:54)
[2020-02-13] MEDS ORDERED: OLAN15TA PO (09:54)
[2020-02-13] MEDS ORDERED: VENL75CA47 PO (09:54)
[2020-02-13] MEDS ORDERED: CLOZ200T PO (09:54)
== END 2020-02-13 10:25 | disposition home or self-care (01) | DRG 885 ==
LOC: M ED 22:40 → M ED INP 02-05 05:39 → M PSY 02-05 10:00
PROVIDERS: ADMIT Psychiatry & Neurology Addiction Medicine; ATTEND Psychiatry & Neurology Psychiatry
DX: F25.0 Schizoaffective disorder, bipolar type (principal); F41.1 Generalized anxiety disorder; F17.200 Nicotine dependence, unspecified, uncomplicated; F14.11 Cocaine abuse, in remission; F11.11 Opioid abuse, in remission; F12.11 Cannabis abuse, in remission; I10 Essential (primary) hypertension; E78.00 Pure hypercholesterolemia, unspecified; K21.9 Gastro-esophageal reflux disease without esophagitis; E03.9 Hypothyroidism, unspecified; N20.0 Calculus of kidney; J44.9 Chronic obstructive pulmonary disease, unspecified; S61.512A Laceration without foreign body of left wrist, initial encounter; X78.8XXA Intentional self-harm by other sharp object, initial encounter; Y92.199 Unspecified place in other specified residential institution as the place of occurrence of the external cause; Z81.8 Family history of other mental and behavioral disorders; Z79.899 Other long term (current) drug therapy; Z88.8 Allergy status to other drugs, medicaments and biological substances

== ENCOUNTER → 2020-02-19 | Outpatient (CLI) | payer MEDICARE, MEDICAID ==
[~2020-02-19] MED LIST changes: +ARIP1TAB PO; +COLA100C5 PO; +DIVA500T9 PO; +HYDR50TA70 PO
[2020-02-19 09:27] LABS: BASO # 0.1 10^3/uL (0.0-0.2); BASO % 0.6 % (0.0-1.0); EOS # 0.2 10^3/uL (0.0-0.5); EOS % 1.8 % (0.0-3.0); HEMATOCRIT 40.6 % (42.0-52.0); HEMOGLOBIN 13.7 g/dl (13.5-17.5); LYMPH # 3.6 10^3/uL (1.5-5.0); LYMPH % 37.4 % (24.0-44.0); MEAN CORPUSCULAR HEMOGLOBIN 32.2 pg (27.0-33.0); MEAN CORPUSCULAR HGB CONC 33.7 g/dl (32.0-36.5); MEAN CORPUSCULAR VOLUME 95.3 fl (80.0-96.0); MONO % 10.3 % (0.0-5.0); NEUTROPHILS # 4.7 10^3/uL (1.5-8.5); NEUTROPHILS % 49.5 % (36.0-66.0); PLATELET COUNT, AUTOMATED 187 10^3/uL (150-450); RED BLOOD COUNT 4.26 10^6/uL (4.30-6.10); WHITE BLOOD COUNT 9.5 10^3/uL (4.0-10.0)
[2020-02-19 09:55] LABS: ALBUMIN 3.1 GM/DL (3.2-5.2); ALT/SGPT 25 U/L (12-78); BILIRUBIN,DIRECT < 0.1 MG/DL (0.0-0.2); BILIRUBIN,TOTAL 0.4 MG/DL (0.2-1.0); TOTAL PROTEIN 6.4 GM/DL (6.4-8.2)
== END ==
LOC: M LAB 08:39
PROVIDERS: ATTEND Nurse Practitioner Psychiatric/Mental Health
DX: F25.0 Schizoaffective disorder, bipolar type (principal)

== ENCOUNTER → 2020-03-14 | Outpatient (CLI) | payer MEDICARE, MEDICAID ==
[2020-03-14 09:16] LABS: BASO # 0.1 10^3/uL (0.0-0.2); BASO % 0.6 % (0.0-1.0); EOS # 0.2 10^3/uL (0.0-0.5); EOS % 1.7 % (0.0-3.0); HEMATOCRIT 40.2 % (42.0-52.0); HEMOGLOBIN 13.3 g/dl (13.5-17.5); LYMPH # 2.8 10^3/uL (1.5-5.0); LYMPH % 31.5 % (24.0-44.0); MEAN CORPUSCULAR HEMOGLOBIN 31.5 pg (27.0-33.0); MEAN CORPUSCULAR HGB CONC 33.1 g/dl (32.0-36.5); MEAN CORPUSCULAR VOLUME 95.3 fl (80.0-96.0); MONO % 11.2 % (0.0-5.0); NEUTROPHILS # 4.9 10^3/uL (1.5-8.5); NEUTROPHILS % 54.6 % (36.0-66.0); PLATELET COUNT, AUTOMATED 185 10^3/uL (150-450); RED BLOOD COUNT 4.22 10^6/uL (4.30-6.10)
[2020-03-14 09:35] LABS: ALBUMIN 3.1 GM/DL (3.2-5.2); ALT/SGPT 24 U/L (12-78); BILIRUBIN,DIRECT < 0.1 MG/DL (0.0-0.2); BILIRUBIN,TOTAL 0.4 MG/DL (0.2-1.0); TOTAL PROTEIN 6.4 GM/DL (6.4-8.2)
== END ==
LOC: M LAB 08:38
PROVIDERS: ATTEND Nurse Practitioner Psychiatric/Mental Health
DX: F25.0 Schizoaffective disorder, bipolar type (principal)

== ENCOUNTER → 2020-04-05 | Outpatient (CLI) | payer MEDICARE, MEDICAID ==
[2020-04-05 10:42] LABS: BASO # 0.1 10^3/uL (0.0-0.2); BASO % 0.5 % (0.0-1.0); EOS # 0.1 10^3/uL (0.0-0.5); EOS % 1.2 % (0.0-3.0); HEMATOCRIT 42.1 % (42.0-52.0); HEMOGLOBIN 14.2 g/dl (13.5-17.5); LYMPH # 2.5 10^3/uL (1.5-5.0); MEAN CORPUSCULAR HEMOGLOBIN 31.6 pg (27.0-33.0); MEAN CORPUSCULAR HGB CONC 33.7 g/dl (32.0-36.5); MEAN CORPUSCULAR VOLUME 93.6 fl (80.0-96.0); MONO % 10.1 % (0.0-5.0); NEUTROPHILS # 6.4 10^3/uL (1.5-8.5); NEUTROPHILS % 62.9 % (36.0-66.0); PLATELET COUNT, AUTOMATED 191 10^3/uL (150-450); WHITE BLOOD COUNT 10.2 10^3/uL (4.0-10.0)
[2020-04-05 11:09] LABS: ALBUMIN 3.1 GM/DL (3.2-5.2); ALT/SGPT 26 U/L (12-78); BILIRUBIN,DIRECT < 0.1 MG/DL (0.0-0.2); BILIRUBIN,TOTAL 0.3 MG/DL (0.2-1.0); TOTAL PROTEIN 6.5 GM/DL (6.4-8.2)
== END ==
LOC: M LAB 09:53
PROVIDERS: ATTEND Nurse Practitioner Psychiatric/Mental Health
DX: F25.0 Schizoaffective disorder, bipolar type (principal)

== ENCOUNTER → 2020-04-17 | Outpatient (CLI) | payer MEDICARE, MEDICAID ==
[2020-04-17 12:27] LABS: BASO # 0.1 10^3/uL (0.0-0.2); BASO % 0.5 % (0.0-1.0); EOS # 0.1 10^3/uL (0.0-0.5); EOS % 0.9 % (0.0-3.0); HEMATOCRIT 40.8 % (42.0-52.0); HEMOGLOBIN 13.8 g/dl (13.5-17.5); LYMPH # 3.2 10^3/uL (1.5-5.0); LYMPH % 30.3 % (24.0-44.0); MEAN CORPUSCULAR HEMOGLOBIN 31.6 pg (27.0-33.0); MEAN CORPUSCULAR HGB CONC 33.8 g/dl (32.0-36.5); MEAN CORPUSCULAR VOLUME 93.4 fl (80.0-96.0); MONO % 9.3 % (0.0-5.0); NEUTROPHILS # 6.2 10^3/uL (1.5-8.5); NEUTROPHILS % 58.5 % (36.0-66.0); PLATELET COUNT, AUTOMATED 205 10^3/uL (150-450); RED BLOOD COUNT 4.37 10^6/uL (4.30-6.10); WHITE BLOOD COUNT 10.6 10^3/uL (4.0-10.0)
[2020-04-17 12:57] LABS: ALBUMIN 3.2 GM/DL (3.2-5.2); BILIRUBIN,DIRECT 0.1 MG/DL (0.0-0.2); BILIRUBIN,TOTAL 0.4 MG/DL (0.2-1.0); TOTAL PROTEIN 6.5 GM/DL (6.4-8.2)
== END ==
LOC: M LAB 11:49
PROVIDERS: ATTEND Nurse Practitioner Psychiatric/Mental Health
DX: F25.0 Schizoaffective disorder, bipolar type (principal)

== ENCOUNTER → 2020-04-30 | Outpatient (REF) | payer MEDICARE, MEDICAID ==
[2020-04-30 13:57] LABS: BASO # 0.1 10^3/uL (0.0-0.2); BASO % 0.6 % (0.0-1.0); EOS # 0.1 10^3/uL (0.0-0.5); EOS % 1.2 % (0.0-3.0); HEMATOCRIT 40.6 % (42.0-52.0); HEMOGLOBIN 13.5 g/dl (13.5-17.5); LYMPH # 2.7 10^3/uL (1.5-5.0); LYMPH % 30.6 % (24.0-44.0); MEAN CORPUSCULAR HEMOGLOBIN 31.7 pg (27.0-33.0); MEAN CORPUSCULAR HGB CONC 33.3 g/dl (32.0-36.5); MEAN CORPUSCULAR VOLUME 95.3 fl (80.0-96.0); MONO % 11.2 % (0.0-5.0); NEUTROPHILS % 55.8 % (36.0-66.0); PLATELET COUNT, AUTOMATED 186 10^3/uL (150-450); RED BLOOD COUNT 4.26 10^6/uL (4.30-6.10); WHITE BLOOD COUNT 8.9 10^3/uL (4.0-10.0)
[2020-04-30 14:26] LABS: ALBUMIN 3.2 GM/DL (3.2-5.2); ALT/SGPT 25 U/L (12-78); BILIRUBIN,TOTAL 0.4 MG/DL (0.2-1.0); BLOOD UREA NITROGEN 16 MG/DL (7-18); CALCIUM LEVEL 8.9 MG/DL (8.5-10.1); CARBON DIOXIDE LEVEL 28 MEQ/L (21-32); CHLORIDE LEVEL 107 MEQ/L (98-107); CHOLESTEROL LEVEL 168 MG/DL (<200); CHOLESTEROL RISK RATIO 3.818 (<5); CREATININE FOR GFR 1.14 MG/DL (0.70-1.30); GLOMERULAR FILTRATION RATE > 60.0 (>56); GLUCOSE, FASTING 91 MG/DL (70-100); HDL CHOLESTEROL 44 MG/DL (>40); LDL CHOLESTEROL 101 MG/DL (<100); NON-HDL-C 124 MG/DL; POTASSIUM SERUM 4.8 MEQ/L (3.5-5.1); SODIUM LEVEL 140 MEQ/L (136-145); TOTAL PROTEIN 6.6 GM/DL (6.4-8.2); TRIGLYCERIDES LEVEL 117 MG/DL (<150)
[2020-04-30 14:37] LABS: HEMOGLOBIN A1c 5.8 %
== END ==
LOC: M LAB REF 11:41
PROVIDERS: ATTEND Nurse Practitioner Family
DX: M25.511 Pain in right shoulder (principal); Z13.9 Encounter for screening, unspecified; F17.210 Nicotine dependence, cigarettes, uncomplicated; E03.9 Hypothyroidism, unspecified; K21.9 Gastro-esophageal reflux disease without esophagitis

== ENCOUNTER → 2020-06-04 | Outpatient (CLI) | payer MEDICARE, MEDICAID ==
[~2020-06-04] MED LIST changes: +ABIL10TA9 PO; +NICO-257 MT; +NICO2GUM PO; +PANT40TA29 PO; -PANT40TA3 PO; +VENL75TA2 PO; -[UNRECOGNIZED DRUG - OTHER] MT
[2020-06-04 10:55] LABS: BASO # 0.1 10^3/uL (0.0-0.2); BASO % 0.7 % (0.0-1.0); EOS # 0.1 10^3/uL (0.0-0.5); EOS % 1.4 % (0.0-3.0); HEMATOCRIT 41.2 % (42.0-52.0); HEMOGLOBIN 13.5 g/dl (13.5-17.5); MEAN CORPUSCULAR HEMOGLOBIN 31.4 pg (27.0-33.0); MEAN CORPUSCULAR HGB CONC 32.8 g/dl (32.0-36.5); MEAN CORPUSCULAR VOLUME 95.8 fl (80.0-96.0); MONO % 11.1 % (0.0-5.0); NEUTROPHILS # 4.6 10^3/uL (1.5-8.5); NEUTROPHILS % 52.6 % (36.0-66.0); PLATELET COUNT, AUTOMATED 182 10^3/uL (150-450); WHITE BLOOD COUNT 8.8 10^3/uL (4.0-10.0)
[2020-06-04 11:25] LABS: ALBUMIN 3.2 GM/DL (3.2-5.2); BILIRUBIN,DIRECT 0.1 MG/DL (0.0-0.2); BILIRUBIN,TOTAL 0.4 MG/DL (0.2-1.0); TOTAL PROTEIN 6.5 GM/DL (6.4-8.2)
== END ==
LOC: M LAB 08:54
PROVIDERS: ATTEND Nurse Practitioner Psychiatric/Mental Health
DX: F25.0 Schizoaffective disorder, bipolar type (principal)

== ENCOUNTER → 2020-07-02 | Outpatient (CLI) | payer MEDICARE, MEDICAID ==
[2020-08-19 21:57] LABS: BASO % 0.4 % (0.0-1.0); EOS # 0.1 10^3/uL (0.0-0.5); EOS % 1.2 % (0.0-3.0); HEMOGLOBIN 13.3 g/dl (13.5-17.5); LYMPH # 3.3 10^3/uL (1.5-5.0); LYMPH % 30.9 % (24.0-44.0); MEAN CORPUSCULAR HGB CONC 33.3 g/dl (32.0-36.5); MEAN CORPUSCULAR VOLUME 96.4 fl (80.0-96.0); MONO # 1.3 10^3/uL (0.0-0.8); MONO % 11.7 % (0.0-5.0); NEUTROPHILS # 5.9 10^3/uL (1.5-8.5); NEUTROPHILS % 55.3 % (36.0-66.0); PLATELET COUNT, AUTOMATED 189 10^3/uL (150-450); RED BLOOD COUNT 4.15 10^6/uL (4.30-6.10); WHITE BLOOD COUNT 10.7 10^3/uL (4.0-10.0)
[2020-08-26 20:22] LABS: ALBUMIN 3.2 GM/DL (3.2-5.2)
== END ==
LOC: M LAB 09:03
PROVIDERS: ATTEND Nurse Practitioner Psychiatric/Mental Health
DX: F25.0 Schizoaffective disorder, bipolar type (principal)

== ENCOUNTER 2020-07-16 09:58 | Inpatient (IN) | payer MEDICARE, MEDICAID ==
[~2020-07-16] VITALS: Ht 177.8 cm; Wt 76.7 kg
[~2020-07-16 09:58] MED LIST changes: -ABIL10TA9 PO; -NICO2GUM PO; -VENL75TA2 PO
[2020-07-16] MEDS ORDERED: LORazepam 1 MG TAB PO ONE ×2 (11:15→20:15)
[2020-07-16 11:55] LABS: HEMATOCRIT 36.6 % (42.0-52.0); HEMOGLOBIN 12.5 g/dl (13.5-17.5); MEAN CORPUSCULAR HEMOGLOBIN 32.2 pg (27.0-33.0); MEAN CORPUSCULAR HGB CONC 34.2 g/dl (32.0-36.5); MEAN CORPUSCULAR VOLUME 94.3 fl (80.0-96.0); PLATELET COUNT, AUTOMATED 180 10^3/uL (150-450); RED BLOOD COUNT 3.88 10^6/uL (4.30-6.10); WHITE BLOOD COUNT 9.5 10^3/uL (4.0-10.0)
[2020-07-16 12:23] LABS: AMPHETAMINES LEVEL URINE NEGATIVE (NEGATIVE); BARBITURATES URINE NEGATIVE (NEGATIVE); BENZODIAZEPINES URINE NEGATIVE (NEGATIVE); CANNABINOIDS URINE NEGATIVE (NEGATIVE); COCAINE METABOLITE URINE NEGATIVE (NEGATIVE); METHADONE URINE NEGATIVE (NEGATIVE); OPIATES URINE NEGATIVE (NEGATIVE); PHENCYCLIDINE URINE NEGATIVE (NEGATIVE)
[2020-07-16] MEDS ORDERED: OLAN15TA PO (12:26)
[2020-07-16] MEDS ORDERED: DOCU100C16 PO (12:26)
[2020-07-16] MEDS ORDERED: ABIL10TA9 PO (12:26)
[2020-07-16] MEDS ORDERED: VENL75TA2 PO (12:26)
[2020-07-16] MEDS ORDERED: DIVA500T9 PO (12:26)
[2020-07-16] MEDS ORDERED: CLOZ200T PO (12:26)
[2020-07-16 12:29] LABS: ACETAMINOPHEN LEVEL < 2.0 UG/ML (10.0-30.0); ALBUMIN 3.1 GM/DL (3.2-5.2); ALT/SGPT 23 U/L (12-78); BILIRUBIN,DIRECT 0.2 MG/DL (0.0-0.2); BILIRUBIN,TOTAL 0.5 MG/DL (0.2-1.0); BLOOD UREA NITROGEN 14 MG/DL (7-18); CALCIUM LEVEL 8.8 MG/DL (8.5-10.1); CARBON DIOXIDE LEVEL 27 MEQ/L (21-32); CHLORIDE LEVEL 108 MEQ/L (98-107); CREATININE FOR GFR 1.02 MG/DL (0.70-1.30); ETHYL ALCOHOL (ETHANOL) 0.003 % (0.000-0.010); GLOMERULAR FILTRATION RATE > 60.0 (>56); GLUCOSE, FASTING 88 MG/DL (70-100); POTASSIUM SERUM 4.8 MEQ/L (3.5-5.1); SALICYLATE LEVEL < 1.7 MG/DL (5.0-30.0); SODIUM LEVEL 142 MEQ/L (136-145); TOTAL PROTEIN 6.4 GM/DL (6.4-8.2)
[2020-07-16] MEDS ORDERED: MAALOX 30 ML SUSP *UDC PO PRN (15:15)
[2020-07-16] MEDS ORDERED: MOM 30ML SUSPENSION UDC PO PRN (15:15)
[2020-07-16 16:34] LABS: BASO % 0.5 % (0.0-1.0); EOS # 0.1 10^3/uL (0.0-0.5); EOS % 0.9 % (0.0-3.0); HEMATOCRIT 40.3 % (42.0-52.0); HEMOGLOBIN 13.7 g/dl (13.5-17.5); LYMPH # 2.6 10^3/uL (1.5-5.0); LYMPH % 30.4 % (24.0-44.0); MEAN CORPUSCULAR HEMOGLOBIN 31.6 pg (27.0-33.0); MEAN CORPUSCULAR VOLUME 93.1 fl (80.0-96.0); MONO # 0.8 10^3/uL (0.0-0.8); MONO % 9.7 % (0.0-5.0); NEUTROPHILS % 58.2 % (36.0-66.0); PLATELET COUNT, AUTOMATED 196 10^3/uL (150-450); RED BLOOD COUNT 4.33 10^6/uL (4.30-6.10); WHITE BLOOD COUNT 8.6 10^3/uL (4.0-10.0)
[2020-07-16 17:32] VITALS: BP 108/61
[2020-07-16] MEDS: cloNIDine 0.1 MG TAB PO SCH (20:28)
[2020-07-16] MEDS: cloZAPine 100 MG TAB (S0136) PO SCH (20:28)
[2020-07-16] MEDS: OLANZapine 5 MG TAB PO SCH (20:29)
[2020-07-16] MEDS: DIVALPROEX 500MG *ER* TAB PO SCH (20:29)
[2020-07-16] MEDS: DOCUSATE SODIUM 100 MG CAP PO SCH (20:29)
[2020-07-16] MEDS: traZODone 50 MG TAB PO PRN (20:29)
[2020-07-17] MEDS: LEVOTHYROXINE 75MCG TABLET (0.075MG) PO SCH (06:29)
[2020-07-17 07:09] VITALS: BP 128/82
[2020-07-17] MEDS: TRIHEXYPHENIDYL 2 MG TAB PO SCH (08:35)
[2020-07-17] MEDS: DOCUSATE SODIUM 100 MG CAP PO SCH ×2 (08:35→20:01)
[2020-07-17] MEDS: ARIPiprazole 10 MG TAB PO SCH (08:35)
[2020-07-17] MEDS: PANTOPRAZOLE 40MG TAB (PROTONIX) PO SCH (08:35)
[2020-07-17] MEDS: MULTIVITAMINS/MINERALS THERAP 1 TAB PO SCH (08:35)
[2020-07-17] MEDS: DIVALPROEX 500MG *ER* TAB PO SCH ×2 (08:35→20:02)
[2020-07-17] MEDS: TAMSULOSIN 0.4 MG CAP PO SCH (08:36)
[2020-07-17] MEDS: lisinopriL 5 MG TAB PO SCH (08:36)
[2020-07-17] MEDS: cloZAPine 100 MG TAB (S0136) PO SCH ×2 (08:36→20:01)
--- NOTE | 2020-07-17 08:55 | MHHPEPDOC ---
[facility] History & Physical History and Physical DATE OF ADMISSION: Jul 16, 2020 at 15:08 HPI: Austin presents today for concerns regarding admittance to the psychiatric unit due to thoughts and hallucinations. Over the past 10 to 12 days he has noticed that he has become increasingly depressed and anxious. He has been having eating, sleeping, and enjoyment problems recently. Currently, he is having suicidal thoughts here and there. MEDICATIONS: Currently, he is on Effexor, Trazadone, Clonazepam, and inaudible. MEDICAL HISTORY: His diagnosis is schizoaffective disorder. He goes to [facility] for his mental health. He has not had any suicide attempts, but has a history of self-harm and cutting. He has a gallstone, but does not have any other medical problems. FAMILY HISTORY: Family history includes a history of suicide in his brother. SOCIAL HISTORY - LIVING SITUATION: He has been living at [facility], and denies having any stressors there, but just started to notice he was becoming depressed. He has been at [facility] for over a year now and is in [facility]. SOCIAL HISTORY - SMOKING: He admits to tobacco use and smokes one pack a day. Objective Appearance: Fair. Affect: Highly dysthymic and dysphoric. Speech: Talks very softly. Spontaneous and Fluid. Normal rate. Thought Form: Logical. Linear and goal directed. Thought Content: No evidence of delusions. No evidence of aggressive or homicidal ideation. Fleeting suicidal ideation. Judgement: Fair. Insight: Fair. Assessment F25.9 Schizoaffective disorder, unspecified Plan At risk for suicide, estimated length of stay is 3-4 days, likely decompensate state with schizoaffective disorder. Change Effexor to extended release to help increase plasma levels, will likely need increase. Continue Clozaril and other medications at this time Vital Signs Vital Signs Date Time Temp Pulse Resp B/P (MAP) Pulse Ox O2 Delivery O2 Flow Rate FiO2 07/17/20 08:36 128/82 07/17/20 07:09 96.9 69 16 07/16/20 17:32 97 Room Air Laboratory Data 24H Labs Laboratory Tests 2 07/16/20 11:04: Nucleated Red Blood Cells % (auto) 0.0, Anion Gap 7L, Glomerular Filtration Rate > 60.0, Calcium Level 8.8, Total Bilirubin 0.5, Direct Bilirubin 0.2, Aspartate Amino Transf (AST/SGOT) 15, Alanine Aminotransferase (ALT/SGPT) 23, Alkaline Phosphatase 80, Total Protein 6.4, Albumin 3.1L, Albumin/Globulin Ratio 0.9, Thyroid Stimulating Hormone (TSH) 1.900, Salicylates Level < 1.7L, Urine Opiates Screen NEGATIVE, Urine Methadone Screen NEGATIVE, Acetaminophen Level < 2.0L, Urine Barbiturates Screen NEGATIVE, Urine Phencyclidine Screen NEGATIVE, Urine Amphetamines Screen NEGATIVE, Urine Benzodiazepines Screen NEGATIVE, Urine Cocaine Metabolite Screen NEGATIVE, Urine Cannabinoids Screen NEGATIVE, Ethyl Alcohol Level 0.003 07/16/20 16:03: Nucleated Red Blood Cells % (auto) 0.0, Immature Granulocyte % (Auto) 0.3, Neutrophils (%) (Auto) 58.2, Lymphocytes (%) (Auto) 30.4, Monocytes (%) (Auto) 9.7H, Eosinophils (%) (Auto) 0.9, Basophils (%) (Auto) 0.5, Neutrophils # (Auto) 5.0, Lymphocytes # (Auto) 2.6, Monocytes # (Auto) 0.8, Eosinophils # (Auto) 0.1, Basophils # (Auto) 0.0 CBC/BMP Laboratory Tests 07/16/20 11:04 07/16/20 16:03 Medications Scheduled Aripiprazole (Abilify) 10 Mg Tablet, 10 MG PO DAILY, (Reported) Clonidine Hcl (Clonidine HCl) 0.1 Mg Tablet, 0.1 MG PO QHS, (Reported) Clozapine (Clozapine) 200 Mg Tablet, 200 MG PO BID, (Reported) Divalproex Sodium (Divalproex Sodium ER) 500 Mg Tab.er.24h, 500 MG PO BID, (Reported) Docusate Sodium (Docusate Sodium) 100 Mg Capsule, 100 MG PO BID, (Reported) Levothyroxine Sodium (Synthroid) 75 Mcg Tablet, 75 MCG PO DAILY, (Reported) Lisinopril (Lisinopril) 5 Mg Tablet, 5 MG PO DAILY, (Reported) Multivitamins (Thera M Plus Tablet) 1 Each Tablet, 1 TAB PO DAILY, (Reported) Olanzapine (Olanzapine) 15 Mg Tablet, 15 MG PO QHS, (Reported) Pantoprazole Sodium (Pantoprazole Sodium) 40 Mg Tablet.dr, 40 MG PO DAILY, (Reported) Tamsulosin HCl (Flomax) 0.4 Mg Capsule, 0.4 MG PO DAILY, (Reported) Tiotropium [place] (Spiriva) 18 Mcg Cap.w.dev, 18 MCG INH DAILY, (Reported) Trihexyphenidyl HCl (Trihexyphenidyl HCl) 5 Mg Tablet, 5 MG PO DAILY, (Reported) Venlafaxine HCl (Venlafaxine HCl) 75 Mg Tablet, 75 MG PO DAILY, (Reported) Allergies Coded Allergies: amoxapine (Unverified Allergy, Unknown, 07/16/20) Reported on TLS Emergency Fact sheet haloperidol (Verified Adverse Reaction, Severe, EPS, Difficulty Breathing, 05/29/19) loxapine (Verified Adverse Reaction, Severe, Tounge protrsion, diff breathing, 05/29/19) lithium (Verified Adverse Reaction, Intermediate, speech problems, 05/29/19) A-FIB/CHADSVASC A-FIB History Current/History of A-Fib/PAF?: No REAL RAMOS DO Jul 17, 2020 08:55
[2020-07-17] MEDS ORDERED: VENLAFAXINE 37.5 MG TAB PO SCH (09:00)
[2020-07-17] MEDS ORDERED: FLUBLOK(EGG FREE)(QUAD)INFLUENZA VACC 0.5ML SYRINGE 18YRS & OLDER IM ONE (09:00)
[2020-07-17] MEDS: TIOTROPIUM INHALER/CAPSULE (SPIRIVA) INH SCH (11:47)
--- NOTE | 2020-07-17 13:49 | HPEPDOC ---
[facility] Medical History & Physical Date of Admission Jul 17, 2020 Date of Service: Jul 17, 2020 Attending Physician: TRINI TAFOYA MD History and Physical CHIEF COMPLAINT: Severe depression with suicidal ideation HISTORY OF PRESENT ILLNESS: 60 year old man with a history of schizoaffective disorder with severe depression and strong family history of depression with a father who committed suicide in his 30s and his brother who also committed suicide, medical history significant for hypothyroidism, benign prostatic hyperplasia, multiple inpatient psychiatric admissions, who presented stating he had not been feeling well with suicidal ideation in the setting of a recent anniversary of his father's and also upcoming anniversary of his mother's . He was recently discharged to 6th of this month. On assessment, he complains of R shoulder, L hip arthritic pains and reports that he sometimes has RUQ pain. He denies chest pain, shortness of breath, weakness, abdominal pain, nausea. Past Medical History Medical History Hypothyroidism Benign prostate hypertrophy Schizoaffective disorder Anxiety disorder Nicotine dependence Surgical History Appendectomy Family History Mother: Colon cancer, congestive heart failure. Depression, multiple suicides within the family. Social History Smokes a pipe, denies alcohol or polysubstance abuse. very remote history of alcohol use disorder and multiple illicit substances >25y ago. Review of Systems A pertinent 10 point review of systems is completed, negative except as stated in the history of presenting illness Physical Examination GENERAL: NAD SKIN : Warm, dry intact HEENT: Atraumatic, normocephalic, PERRLA, moist mucous membrane CARDIOVASCULAR: Regular rate and rhythm, S1S2, no JVD, no edema, distal pulses + palpable RESP: CTAB, no accessory muscle use noted, breathing comfortably on room air ABDOMEN: BS+ non distended non tender NEURO: Alert and oriented x 3, normal gait, CN 2-12 intact PSYCH: no anxiety or agitation, flat affect Labs: CBC, BMP and tox screen were grossly wnl. Assessment 60 year old man with a history of schizoaffective disorder with severe depression and strong family history of depression with a father who committed suicide in his 30s and his brother who also committed suicide, who presented with severe depression with suicidal ideation. Plan GERD: -continue protonix 40mg PO QD COPD: -continue daily spiriva mdi HTN: -continue home lisinopril BPH -continue daily flomax Hypothyroidism -continue daily synthroid 75mcg/daily Severe depression and suicidal ideation -Management per primary psychiatry team Medicine will sign off at this time Vital Signs Vital Signs Date Time Temp Pulse Resp B/P (MAP) Pulse Ox O2 Delivery O2 Flow Rate FiO2 07/17/20 09:54 Room Air 07/17/20 08:36 128/82 07/17/20 07:09 96.9 69 16 07/16/20 17:32 97 Laboratory Data Labs 24H Laboratory Tests 2 07/16/20 16:03: Immature Granulocyte % (Auto) 0.3, Neutrophils (%) (Auto) 58.2, Lymphocytes (%) (Auto) 30.4, Monocytes (%) (Auto) 9.7H, Eosinophils (%) (Auto) 0.9, Basophils (%) (Auto) 0.5, Neutrophils # (Auto) 5.0, Lymphocytes # (Auto) 2.6, Monocytes # (Auto) 0.8, Eosinophils # (Auto) 0.1, Basophils # (Auto) 0.0, Nucleated Red Blood Cells % (auto) 0.0 CBC/BMP Laboratory Tests 07/16/20 16:03 Home Medications Scheduled Aripiprazole (Abilify) 10 Mg Tablet, 10 MG PO DAILY Clonidine Hcl (Clonidine HCl) 0.1 Mg Tablet, 0.1 MG PO QHS Clozapine (Clozapine) 200 Mg Tablet, 200 MG PO BID Divalproex Sodium (Divalproex Sodium ER) 500 Mg Tab.er.24h, 500 MG PO BID Docusate Sodium (Docusate Sodium) 100 Mg Capsule, 100 MG PO BID Levothyroxine Sodium (Synthroid) 75 Mcg Tablet, 75 MCG PO DAILY Lisinopril (Lisinopril) 5 Mg Tablet, 5 MG PO DAILY Multivitamins (Thera M Plus Tablet) 1 Each Tablet, 1 TAB PO DAILY Olanzapine (Olanzapine) 15 Mg Tablet, 15 MG PO QHS Pantoprazole Sodium (Pantoprazole Sodium) 40 Mg Tablet.dr, 40 MG PO DAILY Tamsulosin HCl (Flomax) 0.4 Mg Capsule, 0.4 MG PO DAILY Tiotropium [place] (Spiriva) 18 Mcg Cap.w.dev, 18 MCG INH DAILY Trihexyphenidyl HCl (Trihexyphenidyl HCl) 5 Mg Tablet, 5 MG PO DAILY Venlafaxine HCl (Venlafaxine HCl) 75 Mg Tablet, 75 MG PO DAILY Allergies Coded Allergies: amoxapine (Unverified Allergy, Unknown, 07/16/20) Reported on TLS Emergency Fact sheet haloperidol (Verified Adverse Reaction, Severe, EPS, Difficulty Breathing, 05/29/19) loxapine (Verified Adverse Reaction, Severe, Tounge protrsion, diff breathing, 05/29/19) lithium (Verified Adverse Reaction, Intermediate, speech problems, 05/29/19) A-FIB/CHADSVASC A-FIB History Current/History of A-Fib/PAF?: No Current PO Anticoag Therapy: No Age/Risk Factor Scoring CHADSVASC: CHADSVASC Response (Comments) Value Age Risk Factor Age < 65 years old 0 Gender Risk Factor Male 0 Hx of CHF No 0 Hx of HTN Yes 1 Hx of Stroke/TIA/or VTE No 0 Hx of Diabetes No 0 Hx of Vascular Disease No 0 Total 1 Treatment Treatment ordered: NONE Reason Anticoagulant not given: Not indicated/[id number] TRINI TAFOYA MD Jul 17, 2020 13:49
[2020-07-17] MEDS ORDERED: hydrOXYzine 25 MG TAB PO ONE (15:15)
[2020-07-17 17:59] VITALS: BP 120/79
[2020-07-17] MEDS: traZODone 50 MG TAB PO PRN (20:01)
[2020-07-17] MEDS: OLANZapine 5 MG TAB PO SCH (20:01)
[2020-07-17] MEDS: cloNIDine 0.1 MG TAB PO SCH (20:02)
[2020-07-18] MEDS: LEVOTHYROXINE 75MCG TABLET (0.075MG) PO SCH (06:15)
[2020-07-18 06:49] VITALS: BP 105/68
--- NOTE | 2020-07-18 08:14 | MHIPNPDOC ---
[facility] Progress Note Progress Note DATE OF SERVICE: 07/18/20 Subjective HPI: Austin presents today for concerns regarding his anxiety. Austin is feeling anxious but denies any suicidal thoughts. Austin is inquiring about the effects of his medications as well as dosages. MEDICATIONS: He is currently taking Effexor 75 extended release, and Clozaril 200. MEDICAL HISTORY: Patient used to do very well on Klonopin. Objective Appearance: Hygiene is fair. Behavior: Very anxious. Affect: Constricted. Rocking back and forth. Flat at other times. Cognition: Grossly intact. Thought Content: No signs of internal preoccupation. Anxiety is heavily present. Judgement: Fair. Insight: Fair. Assessment F25.9 Schizoaffective disorder, unspecified F41.9 Anxiety disorder, unspecified Plan Start Klonopin at 0.25 mg daily as patient has multiple antipsychotics including Zyprexa Zydis and Clozaril. Will need to slowly titrate as the patient could be at risk for heavy sedation. Will reach out to patients provider, Dahiana, next week to update on current status and discuss potential treatment changes. Vital Signs Vital Signs Date Time Temp Pulse Resp B/P (MAP) Pulse Ox O2 Delivery O2 Flow Rate FiO2 07/18/20 06:49 97.0 77 15 105/68 (80) 95 Room Air Current Medications Current Medications Medications (Trade) Dose Ordered Sig/Billy Route PRN Reason Start Time Stop Time Status Last Admin Dose Admin Acetaminophen (Tylenol Tab) 650 mg Q6HP PRN PO HEADACHE or DISCOMFORT 07/16/20 15:15 Al Hydrox/Mg Hydrox/Simethicone (Mylanta) 30 ml Q4HP PRN PO HEARTBURN/INDIGESTION 07/16/20 15:15 Aripiprazole (AbiLIFY) 10 mg DAILY PO 07/17/20 09:00 07/17/20 08:35 Clonidine HCl (Catapres) 0.1 mg QHS PO 07/16/20 21:00 07/17/20 20:02 Clozapine (Clozaril) 200 mg BID PO 07/16/20 21:00 07/17/20 20:01 Divalproex Sodium (Depakote Er) 500 mg BID PO 07/16/20 21:00 07/17/20 20:02 Docusate Sodium (Colace) 100 mg BID PO 07/16/20 21:00 07/17/20 20:01 Home Med (Med Rec Complete!) ASDIRECTED XX 07/16/20 12:30 07/16/20 12:29 DC Levothyroxine Sodium (Synthroid) 75 mcg DAILY@0600 PO 07/17/20 06:00 07/18/20 06:15 Lisinopril (Prinivil) 5 mg DAILY PO 07/17/20 09:00 07/17/20 08:36 Magnesium Hydroxide (Milk Of Magnesia) 30 ml DAILYPRN PRN PO CONSTIPATION 07/16/20 15:15 Multivitamins (Theragram-M) 1 tab DAILY PO 07/17/20 09:00 07/17/20 08:35 Olanzapine (ZyPREXA) 15 mg QHS PO 07/16/20 21:00 07/17/20 20:01 Pantoprazole Sodium (Protonix) 40 mg DAILY PO 07/17/20 09:00 07/17/20 08:35 Tamsulosin HCl (Flomax) 0.4 mg DAILY PO 07/17/20 09:00 07/17/20 08:36 Tiotropium [place] (Spiriva Handihaler) 1 inhalation DAILY INH 07/17/20 09:00 07/17/20 11:47 Trazodone HCl (Desyrel) 50 mg QHSP PRN PO INSOMNIA 07/16/20 15:15 07/17/20 20:01 Trihexyphenidyl HCl (Artane) 5 mg DAILY PO 07/17/20 09:00 07/17/20 08:35 Venlafaxine HCl (Effexor Xr) 75 mg QAM PO 07/18/20 09:00 Venlafaxine HCl (Effexor) 75 mg DAILY PO 07/17/20 09:00 07/17/20 11:23 DC 07/17/20 08:35 Allergies Coded Allergies: amoxapine (Unverified Allergy, Unknown, 07/16/20) Reported on TLS Emergency Fact sheet haloperidol (Verified Adverse Reaction, Severe, EPS, Difficulty Breathing, 05/29/19) loxapine (Verified Adverse Reaction, Severe, Tounge protrsion, diff breathing, 05/29/19) lithium (Verified Adverse Reaction, Intermediate, speech problems, 05/29/19) REAL RAMOS DO Jul 18, 2020 08:14
[2020-07-18] MEDS: TRIHEXYPHENIDYL 2 MG TAB PO SCH (09:53)
[2020-07-18] MEDS: DOCUSATE SODIUM 100 MG CAP PO SCH ×2 (09:53→21:32)
[2020-07-18] MEDS: TAMSULOSIN 0.4 MG CAP PO SCH (09:54)
[2020-07-18] MEDS: lisinopriL 5 MG TAB PO SCH (09:54)
[2020-07-18] MEDS: ARIPiprazole 10 MG TAB PO SCH (09:54)
[2020-07-18] MEDS: VENLAFAXINE **XR** 75MG CAPSULE PO SCH (09:55)
[2020-07-18] MEDS: MULTIVITAMINS/MINERALS THERAP 1 TAB PO SCH (09:55)
[2020-07-18] MEDS: PANTOPRAZOLE 40MG TAB (PROTONIX) PO SCH (09:55)
[2020-07-18] MEDS: cloZAPine 100 MG TAB (S0136) PO SCH ×2 (09:55→21:32)
[2020-07-18] MEDS: DIVALPROEX 500MG *ER* TAB PO SCH ×2 (09:56→21:33)
[2020-07-18] MEDS: TIOTROPIUM INHALER/CAPSULE (SPIRIVA) INH SCH (10:14)
[2020-07-18] MEDS: clonazePAM 0.5 MG TAB PO SCH (16:06)
[2020-07-18 16:53] VITALS: BP 109/62
[2020-07-18] MEDS: cloNIDine 0.1 MG TAB PO SCH (21:31)
[2020-07-18] MEDS: OLANZapine 5 MG TAB PO SCH (21:31)
[2020-07-18] MEDS: traZODone 50 MG TAB PO PRN (21:32)
[2020-07-19] MEDS: LEVOTHYROXINE 75MCG TABLET (0.075MG) PO SCH (06:19)
[2020-07-19 06:40] VITALS: BP 105/59
[2020-07-19] MEDS: TAMSULOSIN 0.4 MG CAP PO SCH (09:34)
[2020-07-19] MEDS: cloZAPine 100 MG TAB (S0136) PO SCH ×2 (09:35→20:35)
[2020-07-19] MEDS: lisinopriL 5 MG TAB PO SCH (09:35)
[2020-07-19] MEDS: PILL CUTTER 1 EACH XX PRN (09:36)
[2020-07-19] MEDS: ARIPiprazole 10 MG TAB PO SCH (09:36)
[2020-07-19] MEDS: TRIHEXYPHENIDYL 2 MG TAB PO SCH (09:36)
[2020-07-19] MEDS: PANTOPRAZOLE 40MG TAB (PROTONIX) PO SCH (09:37)
[2020-07-19] MEDS: DOCUSATE SODIUM 100 MG CAP PO SCH ×2 (09:37→20:36)
[2020-07-19] MEDS: VENLAFAXINE **XR** 75MG CAPSULE PO SCH (09:37)
[2020-07-19] MEDS: MULTIVITAMINS/MINERALS THERAP 1 TAB PO SCH (09:37)
[2020-07-19] MEDS: clonazePAM 0.5 MG TAB PO SCH (09:38)
[2020-07-19] MEDS: TIOTROPIUM INHALER/CAPSULE (SPIRIVA) INH SCH (09:39)
[2020-07-19] MEDS: DIVALPROEX 500MG *ER* TAB PO SCH ×2 (09:39→20:36)
--- NOTE | 2020-07-19 10:27 | MHIPNPDOC ---
[facility] Progress Note Progress Note The patient was seen on 07/19/20. Subjective HPI: Austin presents today for concerns regarding his anxiety. The patient is met with today. Denies any side effects at this time. Reporting that he is doing better with his anxiety. He is notably more active today. He reports that he still has fleeting suicidal thoughts from time to time. MEDICATIONS: He reports that hes generally doing somewhat better since being started on the clonazepam. He reports that he has done better on higher doses. Objective Appearance: Hygiene fair. Speech: Spontaneous and Fluid. Normal volume. Normal rate. Much less whispered voice. Cognition: Alert, Attentive, and Oriented to person, place, time. Grossly intac t. Thought Form: Linear, more relaxed than previous. Judgement: Fair. Insight: Fair. Assessment F25.9 Schizoaffective disorder, unspecified Plan Continue Clonazepam at current dose, Clozaril and Zyprexa. Will try to connect with his outpatient provider at [facility] whos a nurse practitioner in order to discuss the medication changes and to get an accurate assessment of the patients baseline. He does report some suicidal thoughts from time to time. Denying them imminently in the session. Does not appear to be responding to internal stimuli. Vital Signs Vital Signs Date Time Temp Pulse Resp B/P (MAP) Pulse Ox O2 Delivery O2 Flow Rate FiO2 07/19/20 09:35 105/59 07/19/20 06:40 96.9 75 16 98 Room Air Current Medications Current Medications Medications (Trade) Dose Ordered Sig/Billy Route PRN Reason Start Time Stop Time Status Last Admin Dose Admin Acetaminophen (Tylenol Tab) 650 mg Q6HP PRN PO HEADACHE or DISCOMFORT 07/16/20 15:15 Al Hydrox/Mg Hydrox/Simethicone (Mylanta) 30 ml Q4HP PRN PO HEARTBURN/INDIGESTION 07/16/20 15:15 Aripiprazole (AbiLIFY) 10 mg DAILY PO 07/17/20 09:00 07/19/20 09:36 Clonazepam (KlonoPIN) 0.25 mg DAILY PO 07/18/20 09:00 07/19/20 09:38 Clonidine HCl (Catapres) 0.1 mg QHS PO 07/16/20 21:00 07/18/20 21:31 Clozapine (Clozaril) 200 mg BID PO 07/16/20 21:00 07/19/20 09:35 Divalproex Sodium (Depakote Er) 500 mg BID PO 07/16/20 21:00 07/19/20 09:39 Docusate Sodium (Colace) 100 mg BID PO 07/16/20 21:00 07/19/20 09:37 Home Med (Med Rec Complete!) ASDIRECTED XX 07/16/20 12:30 07/16/20 12:29 DC Levothyroxine Sodium (Synthroid) 75 mcg DAILY@0600 PO 07/17/20 06:00 07/19/20 06:19 Lisinopril (Prinivil) 5 mg DAILY PO 07/17/20 09:00 07/19/20 09:35 Magnesium Hydroxide (Milk Of Magnesia) 30 ml DAILYPRN PRN PO CONSTIPATION 07/16/20 15:15 Multivitamins (Theragram-M) 1 tab DAILY PO 07/17/20 09:00 07/19/20 09:37 Olanzapine (ZyPREXA) 15 mg QHS PO 07/16/20 21:00 07/18/20 21:31 Pantoprazole Sodium (Protonix) 40 mg DAILY PO 07/17/20 09:00 07/19/20 09:37 Tamsulosin HCl (Flomax) 0.4 mg DAILY PO 07/17/20 09:00 07/19/20 09:34 Tiotropium [place] (Spiriva Handihaler) 1 inhalation DAILY INH 07/17/20 09:00 07/19/20 09:39 Trazodone HCl (Desyrel) 50 mg QHSP PRN PO INSOMNIA 07/16/20 15:15 07/18/20 21:32 Trihexyphenidyl HCl (Artane) 5 mg DAILY PO 07/17/20 09:00 07/19/20 09:36 Venlafaxine HCl (Effexor Xr) 75 mg QAM PO 07/18/20 09:00 07/19/20 09:37 Venlafaxine HCl (Effexor) 75 mg DAILY PO 07/17/20 09:00 07/17/20 11:23 DC 07/17/20 08:35 Allergies Coded Allergies: amoxapine (Unverified Allergy, Unknown, 07/16/20) Reported on TLS Emergency Fact sheet haloperidol (Verified Adverse Reaction, Severe, EPS, Difficulty Breathing, 05/29/19) loxapine (Verified Adverse Reaction, Severe, Tounge protrsion, diff breathing, 05/29/19) lithium (Verified Adverse Reaction, Intermediate, speech problems, 05/29/19) REAL RAMOS DO Jul 19, 2020 10:27
[2020-07-19 19:22] VITALS: BP 98/60
[2020-07-19] MEDS: OLANZapine 5 MG TAB PO SCH (20:36)
[2020-07-19] MEDS: cloNIDine 0.1 MG TAB PO SCH (21:00)
[2020-07-20] MEDS: LEVOTHYROXINE 75MCG TABLET (0.075MG) PO SCH (05:46)
[2020-07-20 06:34] VITALS: BP 137/78
[2020-07-20] MEDS: PILL CUTTER 1 EACH XX PRN (09:20)
[2020-07-20] MEDS: TIOTROPIUM INHALER/CAPSULE (SPIRIVA) INH SCH (09:20)
[2020-07-20] MEDS: TAMSULOSIN 0.4 MG CAP PO SCH (09:21)
[2020-07-20] MEDS: lisinopriL 5 MG TAB PO SCH (09:21)
[2020-07-20] MEDS: cloZAPine 100 MG TAB (S0136) PO SCH ×2 (09:21→21:51)
[2020-07-20] MEDS: ARIPiprazole 10 MG TAB PO SCH (09:22)
[2020-07-20] MEDS: DIVALPROEX 500MG *ER* TAB PO SCH ×2 (09:24→21:51)
[2020-07-20] MEDS: VENLAFAXINE **XR** 75MG CAPSULE PO SCH (09:25)
[2020-07-20] MEDS: DOCUSATE SODIUM 100 MG CAP PO SCH ×2 (09:25→21:51)
[2020-07-20] MEDS: TRIHEXYPHENIDYL 2 MG TAB PO SCH (09:25)
[2020-07-20] MEDS: PANTOPRAZOLE 40MG TAB (PROTONIX) PO SCH (09:26)
[2020-07-20] MEDS: MULTIVITAMINS/MINERALS THERAP 1 TAB PO SCH (09:26)
[2020-07-20] MEDS: clonazePAM 0.5 MG TAB PO SCH (09:26)
[2020-07-20] MEDS: ACETAMINOPHEN TAB 650MG DOSE (2X325MG) PO PRN (09:27)
[2020-07-20] MEDS: cloNIDine 0.1 MG TAB PO SCH (21:00)
[2020-07-20] MEDS: OLANZapine 5 MG TAB PO SCH (21:51)
[2020-07-21] MEDS: LEVOTHYROXINE 75MCG TABLET (0.075MG) PO SCH (05:50)
[2020-07-21 06:47] VITALS: BP 134/80
[2020-07-21] MEDS: TAMSULOSIN 0.4 MG CAP PO SCH (09:25)
[2020-07-21] MEDS: cloZAPine 100 MG TAB (S0136) PO SCH ×2 (09:26→22:55)
[2020-07-21] MEDS: lisinopriL 5 MG TAB PO SCH (09:26)
[2020-07-21] MEDS: ARIPiprazole 10 MG TAB PO SCH (09:28)
[2020-07-21] MEDS: DIVALPROEX 500MG *ER* TAB PO SCH ×2 (09:28→22:57)
[2020-07-21] MEDS: PILL CUTTER 1 EACH XX PRN (09:28)
[2020-07-21] MEDS: MULTIVITAMINS/MINERALS THERAP 1 TAB PO SCH (09:30)
[2020-07-21] MEDS: PANTOPRAZOLE 40MG TAB (PROTONIX) PO SCH (09:30)
[2020-07-21] MEDS: TIOTROPIUM INHALER/CAPSULE (SPIRIVA) INH SCH (09:30)
[2020-07-21] MEDS: VENLAFAXINE **XR** 75MG CAPSULE PO SCH (09:30)
[2020-07-21] MEDS: DOCUSATE SODIUM 100 MG CAP PO SCH ×2 (09:30→22:57)
[2020-07-21] MEDS: TRIHEXYPHENIDYL 2 MG TAB PO SCH (09:31)
[2020-07-21] MEDS: clonazePAM 0.5 MG TAB PO SCH (09:31)
[2020-07-21] MEDS: ACETAMINOPHEN TAB 650MG DOSE (2X325MG) PO PRN ×2 (09:32→22:59)
[2020-07-21 18:54] VITALS: BP 110/76
[2020-07-21] MEDS: OLANZapine 5 MG TAB PO SCH (22:56)
[2020-07-21] MEDS: cloNIDine 0.1 MG TAB PO SCH (22:56)
[2020-07-21] MEDS: traZODone 50 MG TAB PO PRN (22:57)
[2020-07-22] MEDS: LEVOTHYROXINE 75MCG TABLET (0.075MG) PO SCH (05:59)
[2020-07-22 06:38] VITALS: BP 99/66
[2020-07-22] MEDS: ARIPiprazole 10 MG TAB PO SCH (08:57)
[2020-07-22] MEDS: MULTIVITAMINS/MINERALS THERAP 1 TAB PO SCH (08:57)
[2020-07-22] MEDS: PANTOPRAZOLE 40MG TAB (PROTONIX) PO SCH (08:57)
[2020-07-22] MEDS: DOCUSATE SODIUM 100 MG CAP PO SCH ×2 (08:57→20:27)
[2020-07-22] MEDS: VENLAFAXINE **XR** 75MG CAPSULE PO SCH (08:57)
[2020-07-22] MEDS: TAMSULOSIN 0.4 MG CAP PO SCH (08:58)
[2020-07-22] MEDS: TRIHEXYPHENIDYL 2 MG TAB PO SCH (08:58)
[2020-07-22] MEDS: DIVALPROEX 500MG *ER* TAB PO SCH ×2 (08:58→20:32)
[2020-07-22] MEDS: lisinopriL 5 MG TAB PO SCH (09:00)
[2020-07-22] MEDS: cloZAPine 100 MG TAB (S0136) PO SCH ×2 (09:00→20:27)
[2020-07-22] MEDS: clonazePAM 0.5 MG TAB PO SCH (09:00)
[2020-07-22] MEDS: TIOTROPIUM INHALER/CAPSULE (SPIRIVA) INH SCH (09:00)
[2020-07-22] MEDS: NICOTINE POLACRILEX 2 MG GUM PO PRN ×2 (16:30→18:38)
[2020-07-22 17:57] VITALS: BP 134/74
[2020-07-22] MEDS: OLANZapine 5 MG TAB PO SCH (20:27)
[2020-07-22] MEDS: traZODone 50 MG TAB PO PRN (20:28)
[2020-07-22] MEDS: cloNIDine 0.1 MG TAB PO SCH (20:32)
[2020-07-22] MEDS: ACETAMINOPHEN TAB 650MG DOSE (2X325MG) PO PRN (20:33)
[2020-07-23] MEDS: LEVOTHYROXINE 75MCG TABLET (0.075MG) PO SCH (05:14)
[2020-07-23] MEDS: ARIPiprazole 10 MG TAB PO SCH (09:00)
[2020-07-23] MEDS: cloZAPine 100 MG TAB (S0136) PO SCH ×2 (09:00→20:48)
[2020-07-23] MEDS: lisinopriL 5 MG TAB PO SCH (09:00)
[2020-07-23] MEDS: TAMSULOSIN 0.4 MG CAP PO SCH (09:00)
[2020-07-23] MEDS: PANTOPRAZOLE 40MG TAB (PROTONIX) PO SCH (09:00)
[2020-07-23] MEDS: clonazePAM 0.5 MG TAB PO SCH (09:00)
[2020-07-23] MEDS: VENLAFAXINE **XR** 75MG CAPSULE PO SCH (09:00)
[2020-07-23] MEDS: DIVALPROEX 500MG *ER* TAB PO SCH ×2 (09:00→20:49)
[2020-07-23] MEDS: DOCUSATE SODIUM 100 MG CAP PO SCH ×2 (09:00→20:49)
[2020-07-23] MEDS: MULTIVITAMINS/MINERALS THERAP 1 TAB PO SCH (09:00)
[2020-07-23] MEDS: TRIHEXYPHENIDYL 2 MG TAB PO SCH (09:00)
[2020-07-23] MEDS: TIOTROPIUM INHALER/CAPSULE (SPIRIVA) INH SCH (09:00)
--- NOTE | 2020-07-23 09:53 | MHIPNPDOC ---
[facility] Progress Note Progress Note DATE OF SERVICE: 07/23/20 Subjective HPI: Austin presents today for a regular recheck. He denies suicidal or homicidal thoughts. He denies any side effects from the medication. Patient reports he is doing much better and has made great progress in terms of his anxiety. He feels that he is ready to return home and staff concur that he has made great progress. Objective Appearance: Well groomed. Well nourished. Appears to be stated age. Behavior: Cooperative with good eye contact. Engaged. Pleasant. Affect: Full range. Appropriate to context. Mood: Euthymic. Generally good. Appropriately reactive. Speech: Normal volume. Spontaneous and Fluid. Normal rate. Motor: No gross motor abnormalities. Cognition: Alert, Attentive, and Oriented to person, place, time. Memory: No gross abnormalities of short or terminal operations manager memory noted during interview. No formal testing. Thought Form: Linear and goal directed. Thought Content: No evidence of delusions. No evidence of aggressive or homicidal ideation. No evidence of suicidal ideation. No thoughts of self harm. Perception: No perceptual abnormalities noted. Judgement: Intact as evidenced by decision making in the recent past. Insight: Good insight into symptoms and treatment options. Assessment F20.9 Schizophrenia, unspecified F41.9 Anxiety disorder, unspecified Plan He is tolerating his medications well without any overt sedation and appears to have made great progress. We will continue Clonazepam, Clozaril, and Zyprexa. We will discharge tomorrow. Vital Signs Vital Signs Date Time Temp Pulse Resp B/P (MAP) Pulse Ox O2 Delivery O2 Flow Rate FiO2 07/23/20 06:35 97.4 103 16 97 Room Air 07/22/20 20:32 116/68 Current Medications Current Medications Medications (Trade) Dose Ordered Sig/Billy Route PRN Reason Start Time Stop Time Status Last Admin Dose Admin Acetaminophen (Tylenol Tab) 650 mg Q6HP PRN PO HEADACHE or DISCOMFORT 07/16/20 15:15 07/22/20 20:33 Al Hydrox/Mg Hydrox/Simethicone (Mylanta) 30 ml Q4HP PRN PO HEARTBURN/INDIGESTION 07/16/20 15:15 Aripiprazole (AbiLIFY) 10 mg DAILY PO 07/17/20 09:00 07/22/20 08:57 Clonazepam (KlonoPIN) 0.25 mg DAILY PO 07/18/20 09:00 07/22/20 09:00 Clonidine HCl (Catapres) 0.1 mg QHS PO 07/16/20 21:00 07/22/20 20:32 Clozapine (Clozaril) 200 mg BID PO 07/16/20 21:00 07/22/20 20:27 Divalproex Sodium (Depakote Er) 500 mg BID PO 07/16/20 21:00 07/22/20 20:32 Docusate Sodium (Colace) 100 mg BID PO 07/16/20 21:00 07/22/20 20:27 Home Med (Med Rec Complete!) ASDIRECTED XX 07/16/20 12:30 07/16/20 12:29 DC Levothyroxine Sodium (Synthroid) 75 mcg DAILY@0600 PO 07/17/20 06:00 07/23/20 05:14 Lisinopril (Prinivil) 5 mg DAILY PO 07/17/20 09:00 07/21/20 09:26 Magnesium Hydroxide (Milk Of Magnesia) 30 ml DAILYPRN PRN PO CONSTIPATION 07/16/20 15:15 07/22/20 20:32 Miscellaneous (Unresolved Clarification Entry) SEE LABEL COMMENTS DAILY XX 07/23/20 09:00 Multivitamins (Theragram-M) 1 tab DAILY PO 07/17/20 09:00 07/22/20 08:57 Nicotine (Nicorette) 2 mg Q2HP PRN PO SMOKING CESSATION 07/22/20 16:00 07/22/20 18:38 Olanzapine (ZyPREXA) 15 mg QHS PO 07/16/20 21:00 07/22/20 20:27 Pantoprazole Sodium (Protonix) 40 mg DAILY PO 07/17/20 09:00 07/22/20 08:57 Tamsulosin HCl (Flomax) 0.4 mg DAILY PO 07/17/20 09:00 07/22/20 08:58 Tiotropium [place] (Spiriva Handihaler) 1 inhalation DAILY INH 07/17/20 09:00 07/22/20 09:00 Trazodone HCl (Desyrel) 50 mg QHSP PRN PO INSOMNIA 07/16/20 15:15 07/22/20 20:28 Trihexyphenidyl HCl (Artane) 5 mg DAILY PO 07/17/20 09:00 07/22/20 08:58 Venlafaxine HCl (Effexor Xr) 75 mg QAM PO 07/18/20 09:00 07/22/20 08:57 Venlafaxine HCl (Effexor) 75 mg DAILY PO 07/17/20 09:00 07/17/20 11:23 DC 07/17/20 08:35 Allergies Coded Allergies: amoxapine (Unverified Allergy, Unknown, 07/16/20) Reported on TLS Emergency Fact sheet haloperidol (Verified Adverse Reaction, Severe, EPS, Difficulty Breathing, 05/29/19) loxapine (Verified Adverse Reaction, Severe, Tounge protrsion, diff breathing, 05/29/19) lithium (Verified Adverse Reaction, Intermediate, speech problems, 05/29/19) REAL RAMOS DO Jul 23, 2020 09:53
--- NOTE | 2020-07-23 11:51 | MHIPN ---
DATE: 07/21/2020 VITAL SIGNS: Blood pressure 134/80, pulse 77, temperature 96.4. CHIEF COMPLAINT: Says feels a bit better. OBJECTIVE: Seen in follow-up. He was due to be seen yesterday, I was iron handler, I inadvertently forgot to see him. He says he has been feeling better, and that he is less anxious, somewhat less depressed, more optimistic. He says he had a decent night sleep. He takes naps on occasion, including when he is outside the hospital, says they are generally refreshing. MENTAL STATUS EXAMINATION: He is neat. He is cooperative. There is no agitation. No psychomotor retardation. He is coherent. Affect is restricted in range, but shows some reactivity. Denies any suicidal thoughts, intents at present. No overt delusions elicited at present. Judgment and insight fair, possibly somewhat improved. ASSESSMENT: Schizoaffective disorder PLAN: Continue current care, observations. Continue current medication regimen. He is to be encouraged to participate in activities in the unit. Further recommendations will be made depending on the clinical picture. TRACY
[2020-07-23] MEDS: NICOTINE POLACRILEX 2 MG GUM PO PRN ×2 (15:09→20:49)
[2020-07-23 18:00] VITALS: BP 108/72
[2020-07-23] MEDS: OLANZapine 5 MG TAB PO SCH (20:49)
[2020-07-23] MEDS: traZODone 50 MG TAB PO PRN (20:49)
[2020-07-23] MEDS: cloNIDine 0.1 MG TAB PO SCH (20:49)
[2020-07-24] MEDS: LEVOTHYROXINE 75MCG TABLET (0.075MG) PO SCH (06:15)
[2020-07-24 06:33] VITALS: BP 102/66
--- NOTE | 2020-07-24 08:55 | MHDSPDOC ---
[facility] Discharge Summary Discharge Summary DATE OF ADMISSION: Jul 16, 2020 at 15:08 DATE OF DISCHARGE:Jul 24, 2020 at 15:24 DISCHARGE DIAGNOSES: F20.9 Schizophrenia, unspecified F41.9 Anxiety disorder, unspecified CONSULTANTS INVOLVED:[ None (basic hospitalist screening)] REASON FOR ADMISSION & TREATMENT AND PROGRESS ON THE UNIT : The patient was admitted to the inpatient mental health unit after reporting suicidal thoughts in the setting of severe anxiety. He reports that he made great progress and became much less anxious. Nursing staff reported that he did well, became much less anxious in the milieu, had notably less rocking behavior. Made great improvements. MEDICATIONS: He was taking Zyprexa with ineffective effects. He was augmented with 0.25 mg Klonopin as in the past he had done well on them. He was on voluntary admission and benefited greatly. No major behavioral problems. He generally improved without any side effects or over-sedation, and eventually requested discharge after making good progress. DISCHARGE ASSESSMENT[improved] Legal status considerations: The patient at the time of discharge did not meet criteria for involuntary admission/extension due to having a [normal] mental status exam, [fair] insight into the situation, They are engaged in the discharge process, as well as being friendly and amenable in behavioral control and havent been engaging in any observed concerning behavior or ideation recently. They decline voluntary extension/admission at this time and must be discharged in good anni, as Im unable to make a case for holding the patient against their will. They may have historical risk factors of admissions and other interactions with psychiatry however, those are not modifiable from a clinical perspective. The patient will need to be discharged in good anni. MENTAL STATUS EXAMINATION ON DISCHARGE: [General: Well dressed with good hygiene Speech: Spontaneous and fluid Thought processes: Linear and logical Thought content: Future orientated Abstract reasoning, and computation: Intact Description of associations: Intact Description of abnormal or psychotic thoughts:Denies any suicidal or homicidal ideation. Denies any auditory or visual hallucinations. Does not appear to be responding to internal stimuli. Does not appear to be endorsing any bizarre or paranoid ideation. Judgment: fair Insight: fair Orientation: Alert and orientated 3 Recent and remote memory: Intact Attention span and concentration: Intact Fund of knowledge: Adequate Mood: "okay" Affect: Euthymic with a full range] PLAN/FOLLOWUP ARRANGEMENTS: Follow up appointments made (PCP and MH in 5 days of D/C date) and safety plan completed. Safety Planning aspects completed prior to discharge [Medication supplies limited to 7 days with 4 refills to prevent accumulation to OD] [TLS contact completed, educated on safe practices, instructed on removal and mitigation of dangerous means] [RN reviewed crisis hotline information and other aspects to empower patient to access care in interim before next appointment.] The amount of time spent in the coordination of care for this patient was approximately 30 minutes. Vital Signs/I&Os Vital Signs Date Time Temp Pulse Resp B/P (MAP) Pulse Ox O2 Delivery O2 Flow Rate FiO2 07/24/20 06:33 97.6 79 16 102/66 (78) 94 Room Air Medications Scheduled Aripiprazole (Abilify) 10 Mg Tablet, 10 MG PO DAILY, (Reported) Clonazepam (Clonazepam) 0.5 Mg Tablet, 0.25 MG PO DAILY for anxiety for 7 Days, #7 Clonidine Hcl (Clonidine HCl) 0.1 Mg Tablet, 0.1 MG PO QHS, (Reported) Clozapine (Clozapine) 200 Mg Tablet, 200 MG PO BID, (Reported) Divalproex Sodium (Divalproex Sodium ER) 500 Mg Tab.er.24h, 500 MG PO BID, (Reported) Docusate Sodium (Docusate Sodium) 100 Mg Capsule, 100 MG PO BID, (Reported) Levothyroxine Sodium (Synthroid) 75 Mcg Tablet, 75 MCG PO DAILY, (Reported) Lisinopril (Lisinopril) 5 Mg Tablet, 5 MG PO DAILY, (Reported) Multivitamins (Thera M Plus Tablet) 1 Each Tablet, 1 TAB PO DAILY, (Reported) Olanzapine (Olanzapine) 15 Mg Tablet, 15 MG PO QHS, (Reported) Pantoprazole Sodium (Pantoprazole Sodium) 40 Mg Tablet.dr, 40 MG PO DAILY, ( Reported) Tamsulosin HCl (Flomax) 0.4 Mg Capsule, 0.4 MG PO DAILY, (Reported) Tiotropium [place] (Spiriva) 18 Mcg Cap.w.dev, 18 MCG INH DAILY, (Reported) Trihexyphenidyl HCl (Trihexyphenidyl HCl) 5 Mg Tablet, 5 MG PO DAILY, (Reported) Venlafaxine HCl (Venlafaxine HCl ER) 75 Mg Cap.er.24h, 75 MG PO QAM for mood for 7 Days, #7 Scheduled PRN Nicotine Polacrilex (Nicotine Gum) 2 Mg Gum, 2 MG PO Q2HP PRN for SMOKING CESSATION for 30 Days, #30 Allergies Coded Allergies: amoxapine (Unverified Allergy, Unknown, 07/16/20) Reported on TLS Emergency Fact sheet haloperidol (Verified Adverse Reaction, Severe, EPS, Difficulty Breathing, 05/29/19) loxapine (Verified Adverse Reaction, Severe, Tounge protrsion, diff breathing, 05/29/19) lithium (Verified Adverse Reaction, Intermediate, speech problems, 05/29/19) REAL RAMOS DO Jul 24, 2020 08:55
[2020-07-24 09:00] VITALS: BP 98/60
[2020-07-24] MEDS: lisinopriL 5 MG TAB PO SCH (09:00)
[2020-07-24] MEDS ORDERED: VENL75CA47 PO (09:05)
[2020-07-24] MEDS ORDERED: CLON0.5T2 PO (09:05)
[2020-07-24] MEDS ORDERED: NICO2GUM PO (09:05)
[2020-07-24] MEDS: clonazePAM 0.5 MG TAB PO SCH (09:05)
[2020-07-24] MEDS: TRIHEXYPHENIDYL 2 MG TAB PO SCH (09:08)
[2020-07-24] MEDS: VENLAFAXINE **XR** 75MG CAPSULE PO SCH (09:08)
[2020-07-24] MEDS: cloZAPine 100 MG TAB (S0136) PO SCH (09:08)
[2020-07-24] MEDS: TAMSULOSIN 0.4 MG CAP PO SCH (09:08)
[2020-07-24] MEDS: TIOTROPIUM INHALER/CAPSULE (SPIRIVA) INH SCH (09:08)
[2020-07-24] MEDS: MULTIVITAMINS/MINERALS THERAP 1 TAB PO SCH (09:08)
[2020-07-24] MEDS: DOCUSATE SODIUM 100 MG CAP PO SCH (09:08)
[2020-07-24] MEDS: DIVALPROEX 500MG *ER* TAB PO SCH (09:11)
[2020-07-24] MEDS: ARIPiprazole 10 MG TAB PO SCH (09:11)
[2020-07-24] MEDS: PANTOPRAZOLE 40MG TAB (PROTONIX) PO SCH (09:11)
[2020-07-24] MEDS: NICOTINE POLACRILEX 2 MG GUM PO PRN (09:14)
== END 2020-07-24 15:24 | disposition home or self-care (01) | DRG 885 ==
LOC: M ED 09:58 → M ED INP 15:08 → M PSY 16:40
PROVIDERS: ADMIT Psychiatry & Neurology Addiction Medicine; ATTEND Psychiatry & Neurology Addiction Medicine
DX: F20.9 Schizophrenia, unspecified (principal); R45.851 Suicidal ideations; F17.290 Nicotine dependence, other tobacco product, uncomplicated; E03.9 Hypothyroidism, unspecified; N40.0 Benign prostatic hyperplasia without lower urinary tract symptoms; J44.9 Chronic obstructive pulmonary disease, unspecified; F41.9 Anxiety disorder, unspecified; Z81.8 Family history of other mental and behavioral disorders; Z79.899 Other long term (current) drug therapy; Z88.8 Allergy status to other drugs, medicaments and biological substances

== ENCOUNTER → 2020-07-31 | Outpatient (REF) | payer MEDICARE, MEDICAID ==
[~2020-07-31] MED LIST changes: +ABIL10TA9 PO; +NICO2GUM PO; +VENL75TA2 PO
[2020-07-31 13:25] LABS: BASO # 0.1 10^3/uL (0.0-0.2); BASO % 0.5 % (0.0-1.0); EOS # 0.2 10^3/uL (0.0-0.5); HEMATOCRIT 41.9 % (42.0-52.0); HEMOGLOBIN 13.8 g/dl (13.5-17.5); LYMPH # 3.2 10^3/uL (1.5-5.0); LYMPH % 34.5 % (24.0-44.0); MEAN CORPUSCULAR HEMOGLOBIN 31.4 pg (27.0-33.0); MEAN CORPUSCULAR HGB CONC 32.9 g/dl (32.0-36.5); MEAN CORPUSCULAR VOLUME 95.2 fl (80.0-96.0); MONO # 0.9 10^3/uL (0.0-0.8); MONO % 10.1 % (0.0-5.0); NEUTROPHILS # 4.8 10^3/uL (1.5-8.5); NEUTROPHILS % 52.5 % (36.0-66.0); PLATELET COUNT, AUTOMATED 204 10^3/uL (150-450); WHITE BLOOD COUNT 9.2 10^3/uL (4.0-10.0)
[2020-07-31 13:35] LABS: ALBUMIN 3.3 GM/DL (3.2-5.2); ALT/SGPT 28 U/L (12-78); BILIRUBIN,TOTAL 0.4 MG/DL (0.2-1.0); BLOOD UREA NITROGEN 19 MG/DL (7-18); CALCIUM LEVEL 9.1 MG/DL (8.5-10.1); CARBON DIOXIDE LEVEL 27 MEQ/L (21-32); CHLORIDE LEVEL 109 MEQ/L (98-107); CHOLESTEROL LEVEL 180 MG/DL (<200); CHOLESTEROL RISK RATIO 3.461 (<5); CREATININE FOR GFR 1.13 MG/DL (0.70-1.30); FREE T4 1.29 NG/DL (0.76-1.46); GLOMERULAR FILTRATION RATE > 60.0 (>56); GLUCOSE, FASTING 95 MG/DL (70-100); HDL CHOLESTEROL 52 MG/DL (>40); LDL CHOLESTEROL 108 MG/DL (<100); NON-HDL-C 128 MG/DL; POTASSIUM SERUM 4.6 MEQ/L (3.5-5.1); PROSTATIC SPECIFIC AG MONITOR 2.89 NG/ML (< 4.00); SODIUM LEVEL 141 MEQ/L (136-145); TOTAL PROTEIN 6.9 GM/DL (6.4-8.2); TRIGLYCERIDES LEVEL 98 MG/DL (<150)
[2020-07-31 14:18] LABS: HEMOGLOBIN A1c 5.7 %
== END ==
LOC: M LAB REF 12:44
PROVIDERS: ATTEND Nurse Practitioner Family
DX: R73.03 Prediabetes (principal); Z13.9 Encounter for screening, unspecified; F17.210 Nicotine dependence, cigarettes, uncomplicated; E03.9 Hypothyroidism, unspecified; F41.8 Other specified anxiety disorders; K21.9 Gastro-esophageal reflux disease without esophagitis; Z12.5 Encounter for screening for malignant neoplasm of prostate

== ENCOUNTER → 2020-08-09 | Outpatient (CLI) | payer MEDICARE, MEDICAID ==
[2020-08-09 09:01] LABS: BASO # 0.1 10^3/uL (0.0-0.2); BASO % 0.6 % (0.0-1.0); EOS # 0.2 10^3/uL (0.0-0.5); EOS % 1.9 % (0.0-3.0); HEMATOCRIT 40.4 % (42.0-52.0); HEMOGLOBIN 13.3 g/dl (13.5-17.5); LYMPH # 3.3 10^3/uL (1.5-5.0); LYMPH % 39.1 % (24.0-44.0); MEAN CORPUSCULAR HEMOGLOBIN 31.3 pg (27.0-33.0); MEAN CORPUSCULAR HGB CONC 32.9 g/dl (32.0-36.5); MEAN CORPUSCULAR VOLUME 95.1 fl (80.0-96.0); MONO # 0.9 10^3/uL (0.0-0.8); MONO % 10.4 % (0.0-5.0); NEUTROPHILS % 47.5 % (36.0-66.0); PLATELET COUNT, AUTOMATED 189 10^3/uL (150-450); RED BLOOD COUNT 4.25 10^6/uL (4.30-6.10); WHITE BLOOD COUNT 8.4 10^3/uL (4.0-10.0)
== END ==
LOC: M LAB 08:34
PROVIDERS: ATTEND Nurse Practitioner Psychiatric/Mental Health
DX: F25.0 Schizoaffective disorder, bipolar type (principal)

== ENCOUNTER → 2020-08-15 | Outpatient (CLI) | payer MEDICARE, MEDICAID ==
[2020-08-15 09:59] LABS: BASO # 0.1 10^3/uL (0.0-0.2); BASO % 0.7 % (0.0-1.0); EOS # 0.1 10^3/uL (0.0-0.5); EOS % 1.6 % (0.0-3.0); HEMATOCRIT 41.1 % (42.0-52.0); HEMOGLOBIN 13.4 g/dl (13.5-17.5); LYMPH % 33.8 % (24.0-44.0); MEAN CORPUSCULAR HEMOGLOBIN 30.8 pg (27.0-33.0); MEAN CORPUSCULAR HGB CONC 32.6 g/dl (32.0-36.5); MEAN CORPUSCULAR VOLUME 94.5 fl (80.0-96.0); MONO # 0.9 10^3/uL (0.0-0.8); MONO % 9.7 % (0.0-5.0); NEUTROPHILS # 4.8 10^3/uL (1.5-8.5); PLATELET COUNT, AUTOMATED 200 10^3/uL (150-450); RED BLOOD COUNT 4.35 10^6/uL (4.30-6.10); WHITE BLOOD COUNT 8.9 10^3/uL (4.0-10.0)
[2020-08-15 10:10] LABS: HEMOGLOBIN A1c 5.4 %
[2020-08-15 10:24] LABS: ALBUMIN 3.2 GM/DL (3.2-5.2); ALT/SGPT 25 U/L (12-78); BILIRUBIN,TOTAL 0.5 MG/DL (0.2-1.0); BLOOD UREA NITROGEN 16 MG/DL (7-18); CALCIUM LEVEL 9.2 MG/DL (8.5-10.1); CARBON DIOXIDE LEVEL 26 MEQ/L (21-32); CHLORIDE LEVEL 110 MEQ/L (98-107); CHOLESTEROL LEVEL 169 MG/DL (<200); CREATININE FOR GFR 1.02 MG/DL (0.70-1.30); FREE T4 1.32 NG/DL (0.76-1.46); GLOMERULAR FILTRATION RATE > 60.0 (>56); GLUCOSE, FASTING 92 MG/DL (70-100); HDL CHOLESTEROL 50 MG/DL (>40); LDL CHOLESTEROL 95 MG/DL (<100); NON-HDL-C 119 MG/DL; POTASSIUM SERUM 4.5 MEQ/L (3.5-5.1); SODIUM LEVEL 141 MEQ/L (136-145); TOTAL PROTEIN 6.6 GM/DL (6.4-8.2); TRIGLYCERIDES LEVEL 122 MG/DL (<150)
--- NOTE | 2020-08-18 11:32 | ECGEPIP ---
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
[2020-08-20 13:07] LABS: CLOZAPINE 1 25 ng/mL (350-650); CLOZAPINE 2 <20 ng/mL (Not Estab.); CLOZAPINE 3 <45 ng/mL (.)
== END ==
LOC: M LAB 08:42
PROVIDERS: ATTEND Nurse Practitioner Psychiatric/Mental Health
DX: F25.0 Schizoaffective disorder, bipolar type (principal); R94.31 Abnormal electrocardiogram [ECG] [EKG]; Z79.899 Other long term (current) drug therapy

== ENCOUNTER → 2020-09-09 | Outpatient (CLI) | payer MEDICARE, MEDICAID ==
[2020-09-09 15:33] LABS: BASO % 0.5 % (0.0-1.0); EOS # 0.1 10^3/uL (0.0-0.5); EOS % 1.4 % (0.0-3.0); HEMATOCRIT 42.5 % (42.0-52.0); HEMOGLOBIN 13.9 g/dl (13.5-17.5); LYMPH # 3.1 10^3/uL (1.5-5.0); LYMPH % 34.5 % (24.0-44.0); MEAN CORPUSCULAR HEMOGLOBIN 31.4 pg (27.0-33.0); MEAN CORPUSCULAR HGB CONC 32.7 g/dl (32.0-36.5); MEAN CORPUSCULAR VOLUME 96.2 fl (80.0-96.0); MONO # 0.9 10^3/uL (0.0-0.8); NEUTROPHILS # 4.7 10^3/uL (1.5-8.5); NEUTROPHILS % 53.3 % (36.0-66.0); PLATELET COUNT, AUTOMATED 212 10^3/uL (150-450); RED BLOOD COUNT 4.42 10^6/uL (4.30-6.10); WHITE BLOOD COUNT 8.9 10^3/uL (4.0-10.0)
[2020-09-09 16:04] LABS: HEMOGLOBIN A1c 5.6 %
[2020-09-09 16:06] LABS: ALT/SGPT 24 U/L (12-78); BILIRUBIN,TOTAL 0.2 MG/DL (0.2-1.0); BLOOD UREA NITROGEN 17 MG/DL (7-18); CALCIUM LEVEL 8.9 MG/DL (8.5-10.1); CARBON DIOXIDE LEVEL 31 MEQ/L (21-32); CHLORIDE LEVEL 108 MEQ/L (98-107); CHOLESTEROL LEVEL 161 MG/DL (<200); CHOLESTEROL RISK RATIO 3.577 (<5); CREATININE FOR GFR 1.18 MG/DL (0.70-1.30); GLOMERULAR FILTRATION RATE > 60.0 (>56); GLUCOSE, FASTING 97 MG/DL (70-100); HDL CHOLESTEROL 45 MG/DL (>40); LDL CHOLESTEROL 89 MG/DL (<100); NON-HDL-C 116 MG/DL; POTASSIUM SERUM 4.6 MEQ/L (3.5-5.1); SODIUM LEVEL 142 MEQ/L (136-145); TOTAL PROTEIN 6.4 GM/DL (6.4-8.2); TRIGLYCERIDES LEVEL 137 MG/DL (<150)
[2020-09-12 20:07] LABS: CLOZAPINE 1 378 ng/mL (350-650); CLOZAPINE 2 152 ng/mL (Not Estab.); CLOZAPINE 3 530 ng/mL (.)
== END ==
LOC: M LAB 15:03
PROVIDERS: ATTEND Nurse Practitioner Psychiatric/Mental Health
DX: F25.0 Schizoaffective disorder, bipolar type (principal); Z51.81 Encounter for therapeutic drug level monitoring; Z79.899 Other long term (current) drug therapy

== ENCOUNTER 2020-09-19 13:35 | Emergency (ER) | payer MEDICARE, MEDICAID ==
[~2020-09-19] VITALS: Ht 177.8 cm; Wt 79.4 kg
[2020-09-19 15:06] VITALS: BP 121/83
== END 2020-09-19 15:07 | disposition home or self-care (01) ==
LOC: M ED 13:35
DX: I95.89 Other hypotension (principal); I10 Essential (primary) hypertension; E78.00 Pure hypercholesterolemia, unspecified; J44.9 Chronic obstructive pulmonary disease, unspecified; K21.9 Gastro-esophageal reflux disease without esophagitis; F41.9 Anxiety disorder, unspecified; F32.9 Major depressive disorder, single episode, unspecified; F20.9 Schizophrenia, unspecified; Z79.899 Other long term (current) drug therapy; Z88.8 Allergy status to other drugs, medicaments and biological substances

== ENCOUNTER → 2020-10-09 | Outpatient (CLI) | payer MEDICARE, MEDICAID ==
[2020-10-09 10:00] LABS: BASO # 0.1 10^3/uL (0.0-0.2); BASO % 0.5 % (0.0-1.0); EOS # 0.1 10^3/uL (0.0-0.5); EOS % 1.3 % (0.0-3.0); HEMATOCRIT 39.4 % (42.0-52.0); HEMOGLOBIN 12.8 g/dl (13.5-17.5); LYMPH # 2.8 10^3/uL (1.5-5.0); LYMPH % 25.8 % (24.0-44.0); MEAN CORPUSCULAR HEMOGLOBIN 30.9 pg (27.0-33.0); MEAN CORPUSCULAR HGB CONC 32.5 g/dl (32.0-36.5); MEAN CORPUSCULAR VOLUME 95.2 fl (80.0-96.0); MONO # 1.2 10^3/uL (0.0-0.8); MONO % 10.9 % (0.0-5.0); NEUTROPHILS # 6.6 10^3/uL (1.5-8.5); NEUTROPHILS % 60.9 % (36.0-66.0); PLATELET COUNT, AUTOMATED 264 10^3/uL (150-450); RED BLOOD COUNT 4.14 10^6/uL (4.30-6.10); WHITE BLOOD COUNT 10.9 10^3/uL (4.0-10.0)
[2020-10-09 10:58] LABS: ALT/SGPT 18 U/L (12-78); BILIRUBIN,DIRECT < 0.1 MG/DL (0.0-0.2); BILIRUBIN,TOTAL 0.3 MG/DL (0.2-1.0); TOTAL PROTEIN 6.3 GM/DL (6.4-8.2)
== END ==
LOC: M LAB 08:56
PROVIDERS: ATTEND Nurse Practitioner Psychiatric/Mental Health
DX: F25.0 Schizoaffective disorder, bipolar type (principal)

== ENCOUNTER → 2020-10-23 | Outpatient (REF) | payer MEDICARE, MEDICAID ==
[2020-10-23 13:20] LABS: BASO # 0.1 10^3/uL (0.0-0.2); BASO % 0.6 % (0.0-1.0); EOS # 0.1 10^3/uL (0.0-0.5); EOS % 1.1 % (0.0-3.0); HEMATOCRIT 42.5 % (42.0-52.0); HEMOGLOBIN 13.9 g/dl (13.5-17.5); LYMPH # 3.3 10^3/uL (1.5-5.0); LYMPH % 33.7 % (24.0-44.0); MEAN CORPUSCULAR HEMOGLOBIN 31.4 pg (27.0-33.0); MEAN CORPUSCULAR HGB CONC 32.7 g/dl (32.0-36.5); MEAN CORPUSCULAR VOLUME 95.9 fl (80.0-96.0); MONO # 1.1 10^3/uL (0.0-0.8); MONO % 11.3 % (0.0-5.0); NEUTROPHILS # 5.2 10^3/uL (1.5-8.5); PLATELET COUNT, AUTOMATED 215 10^3/uL (150-450); RED BLOOD COUNT 4.43 10^6/uL (4.30-6.10); WHITE BLOOD COUNT 9.7 10^3/uL (4.0-10.0)
[2020-10-23 13:21] LABS: APPEARANCE, URINE HAZY (CLEAR); BACTERIA, URINE AUTO NEGATIVE (NEGATIVE); BILIRUBIN, URINE AUTO NEGATIVE (NEGATIVE); BLOOD, URINE BLOOD NEGATIVE (NEGATIVE); COLOR, URINE YELLOW (YELLOW); GLUCOSE, URINE (UA) AUTO NEGATIVE (NEGATIVE); KETONE, URINE AUTO NEGATIVE (NEGATIVE); LEUKOCYTE ESTERASE, URINE AUTO NEGATIVE (NEGATIVE); MUCUS, URINE SMALL (NEGATIVE); NITRITE, URINE AUTO NEGATIVE (NEGATIVE); PROTEIN, URINE AUTO NEGATIVE (NEGATIVE); RBC, URINE AUTO 0 /HPF (0-3); SPECIFIC GRAVITY URINE AUTO 1.014 (1.002-1.035); SQUAMOUS EPITHELIAL CELL UR AU 0 /HPF (0-6); UROBILINOGEN, URINE AUTO 0.2 mg/dL (0.0-2.0); WBC, URINE AUTO 0 /HPF (0-3)
[2020-10-23 13:46] LABS: ALBUMIN 3.3 GM/DL (3.2-5.2); ALT/SGPT 24 U/L (12-78); BILIRUBIN,TOTAL 0.4 MG/DL (0.2-1.0); BLOOD UREA NITROGEN 15 MG/DL (7-18); CALCIUM LEVEL 9.4 MG/DL (8.5-10.1); CARBON DIOXIDE LEVEL 28 MEQ/L (21-32); CHLORIDE LEVEL 109 MEQ/L (98-107); CREATININE FOR GFR 1.09 MG/DL (0.70-1.30); GLOMERULAR FILTRATION RATE > 60.0 (>56); GLUCOSE, FASTING 77 MG/DL (70-100); SODIUM LEVEL 140 MEQ/L (136-145); TOTAL PROTEIN 6.9 GM/DL (6.4-8.2)
[2020-10-24 23:07] LABS: PSA TOTAL 2.9 ng/mL (0.0-4.0)
== END ==
LOC: M LAB REF 12:55
PROVIDERS: ATTEND Nurse Practitioner Family
DX: N50.819 Testicular pain, unspecified (principal); N40.1 Benign prostatic hyperplasia with lower urinary tract symptoms; R97.20 Elevated prostate specific antigen [PSA]

== ENCOUNTER → 2020-11-05 | Outpatient (CLI) | payer MEDICARE, MEDICAID ==
[2020-11-05 15:03] LABS: BASO # 0.1 10^3/uL (0.0-0.2); BASO % 0.5 % (0.0-1.0); EOS # 0.1 10^3/uL (0.0-0.5); EOS % 1.4 % (0.0-3.0); HEMATOCRIT 40.4 % (42.0-52.0); HEMOGLOBIN 13.2 g/dl (13.5-17.5); LYMPH # 3.3 10^3/uL (1.5-5.0); LYMPH % 35.8 % (24.0-44.0); MEAN CORPUSCULAR HEMOGLOBIN 31.3 pg (27.0-33.0); MEAN CORPUSCULAR HGB CONC 32.7 g/dl (32.0-36.5); MEAN CORPUSCULAR VOLUME 95.7 fl (80.0-96.0); MONO # 0.9 10^3/uL (0.0-0.8); MONO % 9.4 % (0.0-5.0); NEUTROPHILS # 4.9 10^3/uL (1.5-8.5); NEUTROPHILS % 52.7 % (36.0-66.0); PLATELET COUNT, AUTOMATED 201 10^3/uL (150-450); RED BLOOD COUNT 4.22 10^6/uL (4.30-6.10); WHITE BLOOD COUNT 9.2 10^3/uL (4.0-10.0)
== END ==
LOC: M LAB 13:47
PROVIDERS: ATTEND Nurse Practitioner Psychiatric/Mental Health
DX: F25.0 Schizoaffective disorder, bipolar type (principal)

== ENCOUNTER → 2020-12-02 | Outpatient (CLI) | payer MEDICARE, MEDICAID ==
[~2020-12-02] MED LIST changes: -LISI-542 PO; +LISI-898 PO
--- NOTE | 2020-12-02 16:37 | REP ---
INDICATION: TESTICULAR PAIN. COMPARISON: Comparison scrotal sonography findings October 15, 2011.. TECHNIQUE: High-resolution bilateral scrotal sonography. Doppler included. FINDINGS: High-resolution scanning shows homogeneous testicular parenchyma bilaterally. No intratesticular mass lesion is seen on either side. Right testicular dimensions are 4.3 x 2.0 x 3.2 cm. Left testis measures 4.1 x 2.1 x 3.4 cm. There is no evidence of hydrocele, hernia, varicocele or mass. There are epididymal cysts on the left the largest of which measures 0.4 cm in greatest diameter. IMPRESSION: Small left-sided epididymal cyst. Otherwise normal high-resolution scrotal sonography. <Electronically signed by Da Abdi > 12/02/20 [id number]
== END ==
LOC: M RAD 14:58
PROVIDERS: ATTEND Nurse Practitioner Women's Health
DX: N50.819 Testicular pain, unspecified (principal); N50.3 Cyst of epididymis

== ENCOUNTER → 2020-12-05 | Outpatient (CLI) | payer MEDICARE, MEDICAID ==
[2020-12-05 14:44] LABS: BASO # 0.1 10^3/uL (0.0-0.2); BASO % 0.5 % (0.0-1.0); EOS # 0.1 10^3/uL (0.0-0.5); HEMATOCRIT 39.1 % (42.0-52.0); LYMPH # 3.3 10^3/uL (1.5-5.0); LYMPH % 36.4 % (24.0-44.0); MEAN CORPUSCULAR HEMOGLOBIN 31.8 pg (27.0-33.0); MEAN CORPUSCULAR HGB CONC 33.2 g/dl (32.0-36.5); MEAN CORPUSCULAR VOLUME 95.6 fl (80.0-96.0); MONO % 10.9 % (0.0-5.0); NEUTROPHILS # 4.7 10^3/uL (1.5-8.5); NEUTROPHILS % 50.9 % (36.0-66.0); PLATELET COUNT, AUTOMATED 202 10^3/uL (150-450); RED BLOOD COUNT 4.09 10^6/uL (4.30-6.10); WHITE BLOOD COUNT 9.2 10^3/uL (4.0-10.0)
[2020-12-05 15:08] LABS: ALBUMIN 3.3 GM/DL (3.2-5.2); ALT/SGPT 27 U/L (12-78); BILIRUBIN,DIRECT < 0.1 MG/DL (0.0-0.2); BILIRUBIN,TOTAL 0.2 MG/DL (0.2-1.0); TOTAL PROTEIN 6.5 GM/DL (6.4-8.2)
== END ==
LOC: M LAB 13:58
PROVIDERS: ATTEND Nurse Practitioner Psychiatric/Mental Health
DX: F25.0 Schizoaffective disorder, bipolar type (principal)

== ENCOUNTER → 2021-01-02 | Outpatient (CLI) | payer MEDICARE, MEDICAID ==
[2021-01-02 09:28] LABS: BASO % 0.4 % (0.0-1.0); EOS # 0.2 10^3/uL (0.0-0.5); EOS % 1.8 % (0.0-3.0); HEMOGLOBIN 12.9 g/dl (13.5-17.5); LYMPH # 2.9 10^3/uL (1.5-5.0); MEAN CORPUSCULAR HEMOGLOBIN 31.6 pg (27.0-33.0); MEAN CORPUSCULAR HGB CONC 32.3 g/dl (32.0-36.5); MONO # 1.1 10^3/uL (0.0-0.8); NEUTROPHILS # 4.9 10^3/uL (1.5-8.5); PLATELET COUNT, AUTOMATED 197 10^3/uL (150-450); RED BLOOD COUNT 4.08 10^6/uL (4.30-6.10); WHITE BLOOD COUNT 9.2 10^3/uL (4.0-10.0)
== END ==
LOC: M LAB 08:51
PROVIDERS: ATTEND Nurse Practitioner Psychiatric/Mental Health
DX: F25.0 Schizoaffective disorder, bipolar type (principal)

== ENCOUNTER → 2021-02-17 | Outpatient (REF) | payer MEDICARE ==
[2021-02-17 11:44] LABS: BASO # 0.1 10^3/uL (0.0-0.2); BASO % 0.6 % (0.0-1.0); EOS # 0.2 10^3/uL (0.0-0.5); EOS % 1.6 % (0.0-3.0); HEMOGLOBIN 14.6 g/dl (13.5-17.5); LYMPH # 3.8 10^3/uL (1.5-5.0); LYMPH % 39.4 % (24.0-44.0); MEAN CORPUSCULAR HEMOGLOBIN 32.6 pg (27.0-33.0); MEAN CORPUSCULAR HGB CONC 33.2 g/dl (32.0-36.5); MEAN CORPUSCULAR VOLUME 98.2 fl (80.0-96.0); MONO # 1.2 10^3/uL (0.0-0.8); MONO % 11.9 % (2.0-8.0); NEUTROPHILS # 4.5 10^3/uL (1.5-8.5); NEUTROPHILS % 46.1 % (36.0-66.0); PLATELET COUNT, AUTOMATED 198 10^3/uL (150-450); RED BLOOD COUNT 4.48 10^6/uL (4.30-6.10); WHITE BLOOD COUNT 9.7 10^3/uL (4.0-10.0)
[2021-02-17 12:12] LABS: HEMOGLOBIN A1c 5.3 %
[2021-02-17 12:35] LABS: ALBUMIN 3.5 GM/DL (3.2-5.2); ALT/SGPT 31 U/L (12-78); BILIRUBIN,TOTAL 0.4 MG/DL (0.2-1.0); BLOOD UREA NITROGEN 22 MG/DL (7-18); CALCIUM LEVEL 9.3 MG/DL (8.5-10.1); CARBON DIOXIDE LEVEL 29 MEQ/L (21-32); CHLORIDE LEVEL 105 MEQ/L (98-107); CHOLESTEROL LEVEL 174 MG/DL (<200); CHOLESTEROL RISK RATIO 3.163 (<5); CREATININE FOR GFR 1.11 MG/DL (0.70-1.30); FREE T4 1.29 NG/DL (0.76-1.46); GLOMERULAR FILTRATION RATE > 60.0 (>56); GLUCOSE, FASTING 89 MG/DL (70-100); HDL CHOLESTEROL 55 MG/DL (>40); LDL CHOLESTEROL 90 MG/DL (<100); NON-HDL-C 119 MG/DL; POTASSIUM SERUM 4.5 MEQ/L (3.5-5.1); SODIUM LEVEL 139 MEQ/L (136-145); TOTAL 25(OH) VITAMIN D 34.9 NG/ML (30.0-100.0); TOTAL PROTEIN 6.8 GM/DL (6.4-8.2); TRIGLYCERIDES LEVEL 143 MG/DL (<150)
== END ==
LOC: M LAB REF 11:05
PROVIDERS: ATTEND Nurse Practitioner Family
DX: E03.9 Hypothyroidism, unspecified (principal); Z72.0 Tobacco use

== ENCOUNTER → 2021-03-04 | Outpatient (CLI) | payer MEDICARE, MEDICAID ==
[2021-03-04 10:31] LABS: BASO # 0.1 10^3/uL (0.0-0.2); BASO % 0.8 % (0.0-1.0); EOS # 0.2 10^3/uL (0.0-0.5); EOS % 2.2 % (0.0-3.0); HEMATOCRIT 42.1 % (42.0-52.0); HEMOGLOBIN 13.8 g/dl (13.5-17.5); LYMPH # 2.7 10^3/uL (1.5-5.0); LYMPH % 34.8 % (24.0-44.0); MEAN CORPUSCULAR HEMOGLOBIN 32.2 pg (27.0-33.0); MEAN CORPUSCULAR HGB CONC 32.8 g/dl (32.0-36.5); MEAN CORPUSCULAR VOLUME 98.4 fl (80.0-96.0); MONO # 0.9 10^3/uL (0.0-0.8); MONO % 12.1 % (2.0-8.0); NEUTROPHILS # 3.9 10^3/uL (1.5-8.5); NEUTROPHILS % 49.6 % (36.0-66.0); PLATELET COUNT, AUTOMATED 172 10^3/uL (150-450); RED BLOOD COUNT 4.28 10^6/uL (4.30-6.10); WHITE BLOOD COUNT 7.8 10^3/uL (4.0-10.0)
== END ==
LOC: M LAB 09:10
PROVIDERS: ATTEND Nurse Practitioner Psychiatric/Mental Health
DX: F31.9 Bipolar disorder, unspecified (principal)

== ENCOUNTER 2021-03-18 17:15 | Inpatient (IN) | payer MEDICARE, MEDICAID ==
[~2021-03-18] VITALS: Ht 177.8 cm; Wt 77.3 kg
[2021-03-18] MEDS ORDERED: TAMS1CAP17 PO (18:10)
[2021-03-18] MEDS ORDERED: LEVO100T5 PO (18:10)
[2021-03-18] MEDS ORDERED: TAB-TAB3 PO (18:10)
[2021-03-18] MEDS ORDERED: AMAN100T PO ×2 (18:10→22:42)
[2021-03-18 19:32] LABS: HEMATOCRIT 44.4 % (42.0-52.0); HEMOGLOBIN 14.4 g/dl (13.5-17.5); MEAN CORPUSCULAR HEMOGLOBIN 31.9 pg (27.0-33.0); MEAN CORPUSCULAR HGB CONC 32.4 g/dl (32.0-36.5); MEAN CORPUSCULAR VOLUME 98.2 fl (80.0-96.0); PLATELET COUNT, AUTOMATED 203 10^3/uL (150-450); RED BLOOD COUNT 4.52 10^6/uL (4.30-6.10); WHITE BLOOD COUNT 9.5 10^3/uL (4.0-10.0)
[2021-03-18] MEDS ORDERED: cloZAPine 100 MG TAB (S0136) PO ONE (19:35)
[2021-03-18] MEDS ORDERED: cloNIDine 0.1MG TABLET PO ONE (19:35)
[2021-03-18] MEDS ORDERED: OLANZapine 5 MG TAB PO ONE (19:40)
[2021-03-18 20:03] LABS: AMPHETAMINES LEVEL URINE NEGATIVE (NEGATIVE); BARBITURATES URINE NEGATIVE (NEGATIVE); BENZODIAZEPINES URINE NEGATIVE (NEGATIVE); CANNABINOIDS URINE NEGATIVE (NEGATIVE); COCAINE METABOLITE URINE NEGATIVE (NEGATIVE); METHADONE URINE NEGATIVE (NEGATIVE); OPIATES URINE NEGATIVE (NEGATIVE); PHENCYCLIDINE URINE NEGATIVE (NEGATIVE)
[2021-03-18 20:18] LABS: ACETAMINOPHEN LEVEL < 2.0 UG/ML (10.0-30.0); ALBUMIN 3.4 GM/DL (3.2-5.2); ALT/SGPT 30 U/L (12-78); BILIRUBIN,DIRECT 0.1 MG/DL (0.0-0.2); BILIRUBIN,TOTAL 0.3 MG/DL (0.2-1.0); BLOOD UREA NITROGEN 23 MG/DL (7-18); CARBON DIOXIDE LEVEL 32 MEQ/L (21-32); CHLORIDE LEVEL 107 MEQ/L (98-107); CREATININE FOR GFR 0.99 MG/DL (0.70-1.30); ETHYL ALCOHOL (ETHANOL) < 0.003 % (0.000-0.010); GLOMERULAR FILTRATION RATE > 60.0 (>56); GLUCOSE, FASTING 77 MG/DL (70-100); POTASSIUM SERUM 4.4 MEQ/L (3.5-5.1); SALICYLATE LEVEL 1.9 MG/DL (5.0-30.0); SODIUM LEVEL 143 MEQ/L (136-145); VALPROIC ACID (DEPAKOTE) 69.2 UG/ML (50.0-100.0)
[2021-03-18] MEDS ORDERED: DIVALPROEX 500MG *ER* TAB PO ONE (20:35)
[2021-03-18] MEDS: OLANZapine 5 MG TAB PO SCH (21:00)
[2021-03-18] MEDS: cloNIDine 0.1MG TABLET PO SCH (21:00)
[2021-03-18] MEDS: cloZAPine 100 MG TAB (S0136) PO SCH (21:00)
[2021-03-18] MEDS: DIVALPROEX 500MG *ER* TAB PO SCH (21:00)
[2021-03-18] MEDS ORDERED: LORazepam 1 MG TAB PO STA (22:04)
[2021-03-18] MEDS ORDERED: CYCL5TAB PO (22:42)
[2021-03-18] MEDS ORDERED: SYNT100T PO (22:42)
[2021-03-18] MEDS ORDERED: VITMTA PO (22:42)
[2021-03-18] MEDS ORDERED: NICO2GUM43 MT (22:42)
[2021-03-18] MEDS ORDERED: TRIH2TAB3 PO (22:42)
[2021-03-18] MEDS ORDERED: IBUP1TAB6 PO (22:42)
[2021-03-18] MEDS ORDERED: FLOM0.4C39 PO (22:42)
[2021-03-18] MEDS ORDERED: EFFE75CA2 PO (22:42)
[2021-03-18] MEDS ORDERED: MIRA1POW3 PO (22:42)
[2021-03-18 22:59] LABS: RSV AMPLIFICATION NEGATIVE (NEGATIVE)
[2021-03-18] MEDS ORDERED: MAALOX 30 ML SUSP *UDC PO PRN (23:15)
[2021-03-18] MEDS ORDERED: LORazepam 1 MG TAB PO PRN (23:15)
[2021-03-18] MEDS ORDERED: MOM 30ML SUSPENSION UDC PO PRN (23:15)
[2021-03-18] MEDS ORDERED: ACETAMINOPHEN TAB 650MG DOSE (2X325MG) PO PRN (23:15)
[2021-03-18] MEDS ORDERED: IBUPROFEN 600MG TAB PO PRN (23:15)
[2021-03-18] MEDS ORDERED: MIRALAX *UNIT DOSE* 17GM PACKET PO PRN (23:15)
[2021-03-18] MEDS ORDERED: traZODone 50 MG TAB PO PRN (23:15)
[2021-03-18] MEDS ORDERED: CYCLOBENZAPRINE 5MG TABLET PO PRN (23:15)
[2021-03-18] MEDS ORDERED: PILL CUTTER 1 EACH XX PRN (23:45)
[2021-03-19] MEDS: TAMSULOSIN 0.4 MG CAP PO SCH ×3 (00:17→20:35)
[2021-03-19] MEDS: DOCUSATE SODIUM 100MG CAPSULE PO SCH ×3 (00:17→20:35)
[2021-03-19 00:21] VITALS: BP 129/81
[2021-03-19] MEDS: LEVOTHYROXINE 100MCG TABLET (0.1MG) PO SCH (05:54)
[2021-03-19 07:05] VITALS: BP 97/67
[2021-03-19] MEDS: NICOTINE 21MG/24HR 1 EA TRANSDERMAL TD SCH (08:52)
[2021-03-19] MEDS: MULTIVITAMINS/MINERALS THERAP 1 TAB PO SCH (08:54)
[2021-03-19] MEDS: lisinopriL 5 MG TAB PO SCH (08:54)
[2021-03-19] MEDS: PANTOPRAZOLE 40MG TAB (PROTONIX) PO SCH (08:54)
[2021-03-19] MEDS: DIVALPROEX 500MG *ER* TAB PO SCH ×2 (08:55→20:35)
[2021-03-19] MEDS: VENLAFAXINE **XR** 75MG CAPSULE PO SCH (08:55)
[2021-03-19] MEDS: cloZAPine 100 MG TAB (S0136) PO SCH ×2 (09:03→20:35)
[2021-03-19] MEDS: AMANTADINE 100MG TABLET PO SCH ×3 (09:03→20:36)
[2021-03-19] MEDS: TRIHEXYPHENIDYL 2 MG TAB PO SCH (10:48)
[2021-03-19] MEDS: TIOTROPIUM INHALER/CAPSULE (SPIRIVA) INH SCH (11:07)
--- NOTE | 2021-03-19 13:36 | HPEPDOC ---
[facility] Medical History & Physical Date of Admission March 18, 2021 Date of Service: March 19, 2021 Attending Physician: Racheal Frausto MD History and Physical HISTORY OF PRESENT ILLNESS: 60 year old man with a history of schizoaffective disorder, severe depression, history of suicide attempts and suicidal ideation, anxiety/depression, nicotine dependence, GERD, hypothyroidism presented to [facility] emergency room with suicidal ideations. Stressors included recent anniversary of his mother's staff and father's staff. The patient states he also has some homicidal ideations at times but has never acted on that. He does admit to hearing voices and seeing visual hallucinations as well. He's had several suicide attempts including trying to hang himself, cut himself overdosing twice. The patient also says he "feels possessed at times", feels hopeless, depressed, anxious. He denies increased tearfulness, poor sleeper poor eating habits. He also denies chest pain, nausea, vomiting, fevers chills or cough, shortness of breath, abdominal pain, diarrhea. The patient states that he gets very angry with other members of the transitional living facility that he lives that and has bad thoughts about hurting them. The patient was admitted with a diagnosis of schizophrenia to inpatient mental health for further treatment. PMH Hypothyroidism Benign prostate hypertrophy Schizoaffective disorder Anxiety disorder Nicotine dependence Surgical History Appendectomy gerd hx of suicidal ideation Bipolar d/o Family History Mother: Colon cancer, congestive heart failure. Depression, multiple suicides wi thin the family. Social History Smokes a pipe, denies alcohol or polysubstance abuse. very remote history of alcohol use disorder and multiple illicit substances >25y ago. Lives at transitional living facility. Full code. Physical Examination GENERAL: NAD SKIN : Warm, dry intact HEENT: Atraumatic, normocephalic, PERRLA, moist mucous membrane CARDIOVASCULAR: Regular rate and rhythm, S1S2, no JVD, no edema, distal pulses + palpable RESP: CTAB, no accessory muscle use noted, breathing comfortably on room air ABDOMEN: BS+ non distended non tender NEURO: Alert and oriented x 3, normal gait, CN 2-12 intact PSYCH: no anxiety or agitation, flat affect Labs: CBC, BMP and tox screen were grossly wnl. Assessment 60 y/o M admitted for further treatment of schizophrenia. Plan Schizophrenia / bipolar disorder / depression / anxiety / SI/HI -Plan per psychiatry team GERD: -continue protonix 40mg PO QD COPD: -continue daily spiriva mdi HTN: -continue home lisinopril BPH -continue daily flomax Hypothyroidism -continue daily synthroid 100 mcg/daily Thank you kindly for this consult. Medicine will sign off at this time. Please do not hesitate to reconsult if we are needed again. Vital Signs Vital Signs Date Time Temp Pulse Resp B/P (MAP) Pulse Ox O2 Delivery O2 Flow Rate FiO2 03/19/21 08:54 118/70 03/19/21 08:07 Room Air 03/19/21 07:05 97.3 99 20 95 Laboratory Data Labs 24H Laboratory Tests 2 03/18/21 19:11: Nucleated Red Blood Cells % (auto) 0.0, Anion Gap 4L, Glomerular Filtration Rate > 60.0, Calcium Level 9.0, Total Bilirubin 0.3, Direct Bilirubin 0.1, Aspartate Amino Transf (AST/SGOT) 18, Alanine Aminotransferase (ALT/SGPT) 30, Alkaline Phosphatase 95, Total Protein 7.0, Albumin 3.4, Albumin/Globulin Ratio 0.9, Thyroid Stimulating Hormone (TSH) 2.460, Salicylates Level 1.9L, Urine Opiates Screen NEGATIVE, Urine Methadone Screen NEGATIVE, Acetaminophen Level < 2.0L, Urine Barbiturates Screen NEGATIVE, Valproic Acid (Depakene) Level 69.2, Urine Phencyclidine Screen NEGATIVE, Urine Amphetamines Screen NEGATIVE, Urine Benzod iazepines Screen NEGATIVE, Urine Cocaine Metabolite Screen NEGATIVE, Urine Cannabinoids Screen NEGATIVE, Ethyl Alcohol Level < 0.003 03/18/21 22:02: Coronavirus (COVID-19)(PCR) NEGATIVE, Influenza Type A (RT-PCR) NEGATIVE, Influenza Type B (RT-PCR) NEGATIVE, Respiratory Syncytial Virus (PCR) NEGATIVE CBC/BMP Laboratory Tests 03/18/21 19:11 Home Medications Scheduled Amantadine HCl (Amantadine) 100 Mg Tablet, 100 MG PO BID Clonidine Hcl (Clonidine HCl) 0.1 Mg Tablet, 0.1 MG PO QHS Clozapine (Clozapine) 200 Mg Tablet, 200 MG PO BID Divalproex Sodium (Divalproex Sodium ER) 500 Mg Tab.er.24h, 500 MG PO BID Docusate Sodium (Docusate Sodium) 100 Mg Capsule, 100 MG PO BID HOLD FOR LOOSE STOOLS Levothyroxine Sodium (Synthroid) 100 Mcg Tablet, 100 MCG PO DAILY Lisinopril (Lisinopril) 5 Mg Tablet, 5 MG PO DAILY Multivitamins (Thera M Plus Tablet) 1 Each Tablet, 1 TAB PO DAILY Olanzapine (Olanzapine) 15 Mg Tablet, 15 MG PO QHS Pantoprazole Sodium (Pantoprazole Sodium) 40 Mg Tablet.dr, 40 MG PO DAILY Tamsulosin HCl (Flomax) 0.4 Mg Capsule, 0.4 MG PO BID Tiotropium [place] (Spiriva) 18 Mcg Cap.w.dev, 18 MCG INH DAILY Trihexyphenidyl HCl (Trihexyphenidyl HCl) 2 Mg Tablet, 5 MG PO DAILY Venlafaxine HCl (Effexor Xr) 75 Mg Cap.er.24h, 75 MG PO DAILY Scheduled PRN Cyclobenzaprine HCl (Cyclobenzaprine HCl) 5 Mg Tablet, 5 MG PO TID PRN for MUSCLE SPASMS Ibuprofen (Ibuprofen) 600 Mg Tablet, 600 MG PO BID PRN for PAIN Nicotine Polacrilex (Nicotine Gum) 2 Mg Gum, 2 MG MT Q2H PRN for SMOKING CESSATION Polyethylene Glycol 3350 (Miralax) 17 Gm Powd.pack, 17 GM PO DAILY PRN for CONSTIPATION Allergies Coded Allergies: amoxapine (Verified Allergy, Unknown, 09/19/20) Reported on TLS Emergency Fact sheet haloperidol (Verified Adverse Reaction, Severe, EPS, Difficulty Breathing, 09/19/20) loxapine (Verified Adverse Reaction, Severe, Tounge protrsion, diff breathing, 09/19/20) lithium (Verified Adverse Reaction, Intermediate, speech problems, 09/19/20) A-FIB/CHADSVASC A-FIB History Current/History of A-Fib/PAF?: No Current PO Anticoag Therapy: No Age/Risk Factor Scoring CHADSVASC: CHADSVASC Response (Comments) Value Age Risk Factor Age < 65 years old 0 Gender Risk Factor Male 0 Hx of CHF No 0 Hx of HTN Yes 1 Hx of Stroke/TIA/or VTE No 0 Hx of Diabetes No 0 Hx of Vascular Disease No 0 Total 1 Treatment Treatment ordered: NONE Other anticoagulant ordered: none Racheal Frausto MD March 19, 2021 13:36
--- NOTE | 2021-03-19 14:58 | MHHPEPDOC ---
General Date Of Admission: March 18, 2021 Legal Status: 9.39 Chief Complaint "suicidal and homicidal thoughts, and paranoid thoughts, and wanting to cut". History of Present Illness HISTORY OF THE PRESENT ILLNESS: Patient is a 60 -year-old Single, Disabled, Domiciled, , male, who reports he was having suicidal and homicidal thoughts and paranoia. He states "I am feeling more suicidal than homicidal. I am having thoughts of cutting or hanging myself. I was here 8 months ago. I was hearing voices in the house, I feel that people can read my mind." He reports having depressive symptoms: difficulty concentrating, poor focus, poor sleep, suicidal thoughts, depressed mood. "I have been clean for 25 years, I go to AA meeting daily." States he does not want to return to using substances daily. PER ED REPORT: Pt states "I am having ideas of paranoia, SI and HI, and voices." Pt's speech is very pressured and he rocks throughout the interview. Pt reports that the voices in his head talk bad about him. The voices make him scared that people do not like him and want to hurt him. He reports that he is scared that he may do something to act on his thoughts of SI. He mentions cutting and hanging at the time of interview. The homicidal thoughts he describes are vague with no target or plan, however he becomes a little more anxious when discussing them and state "I can't stand myself when I have those thoughts" Pt reports being compliant with his medication and involved in his treatment. He has a therapist and med provider through [facility] and medical provider at [facility]. Pt is a resident at [facility] and resides with 11 or 12 other individuals. Pt does not feel safe with his thoughts and does not believe he is able to contract for safety. . Psychiatric Review of Systems Depression (2 or more weeks): depressed mood, anhedonia, insomnia/hypersomnia, feelings of excess/guilt, difficulty concentrating, suicidal thoughts, other (anxious) Cassi (4 or more days of): denies Psychosis: auditory hallucination, paranoia PTSD: denies Anxiety: situational anxiety, stressor related anxiety Past Psychiatric History Previous Psychiatric Diagnosis: Schizoaffective, Depression, Substance Use Disorder Previous Psychiatric Admissions: Multiple admissions Suicide Attempts: History of Cutting numerous scars of vertical and horizontal cuts Psychiatric Follow-up: Dahiana Jett, [facility] Psychiatric medications: Clozapine, Klonopin, Depakote, Olanzapine, Effexor, Levothyroxine, Past Medical History Head Injury: No Seizures: No Hospitalizations: Yes Surgeries: Yes (Appendectomy) Family Medical/Psychiatric HX Psychiatric Disorders: Yes Addiction: No Suicide Attemps/Completions: Yes (Father and Brother both committed suicide) Addiction History nicotine (One pack per day), alcohol (Cannabis), cocaine, methamphetamines, other (Hash) Social History Childhood: Describes his childhood as "alright" grew up with both parents. Had a brother who committed Suicide. Father committed suicide Abuse/Trauma: None Current Living Situation: [facility] on [employer] Education: GED Employment: Unemployed Social Support: AA Sponsor, goes everyday Legal: Past legal charges, in the Marital: Single Hobbies: TV, reading Stressors: I don't want to go back to drinking or drugs Mental Status Examination General Appearance: disheveled, appears stated age, hospital scubs/clothing Build: average Demeanor: average, guarded Eye Contact: average Activity: anxious Behavior: cooperative Speech: low in volume, mild Mood: depressed, anxious Affect: flat Thought Process: logical/linear Thought Content (Delusions): paranoia, delusions Thought Content (Other): none reported, guarded Thought Content (Aggressive): none reported Perception (Hallucinations): auditory Perception (Other): none reported Cognition (Impairment of): none reported Cognition(Intelligence Est.): average Oriented: Awake, Alert, Oriented times three Insight: fair Judgment: Fair Diagnoses Schizoaffective Disorder Nicotine Use Disorder A-FIB/CHADSVASC A-FIB History Current/History of A-Fib/PAF?: No Current PO Anticoag Therapy: No Age/Risk Factor Scoring CHADSVASC: CHADSVASC Response (Comments) Value Age Risk Factor Age < 65 years old 0 Gender Risk Factor Male 0 Hx of CHF No 0 Hx of HTN Yes 1 Hx of Stroke/TIA/or VTE No 0 Hx of Diabetes No 0 Hx of Vascular Disease No 0 Total 1 Assessment Patient is a 60-year-old single, disabled, styled male who brought himself to the emergency department reporting suicidal and homicidal thoughts. States he was also paranoid. . He reported having auditory hallucinations and was believing that people were talking about him. . He reports that he is hearing negative voices talking bad things about himself. He has has a long history of psychiatric admissions to this facility last admission was 8 months ago. He currently lives at [facility]. He reports that his stressors are fearing that he may return to state substance use. Patient is requesting hospitalization fearing that he can contract for safety. Patient has a history of cutting himself. He has numerous scars on his left forearm both horizontal and vertical cuts. Patient is compliant with his medications. He sees Dahiana man. ECG C. Patient is alert and oriented to person, place, time and situation. His attention and concentration is good. Memory is intact. His speech is normal rate, tone and volume. At times it was very low. Difficult to hear him. His abstract reasoning is fair. He appears depressed and anxious. He reports that he is anxious and depressed. Denies current suicidal ideation, although it appears that that is fleeting. Denies any homicidal thinking at this time. Insight and judgment is fair. Patient to be admitted to psychiatry. Continue all medications. Will discharge when he is stable Initial Treatment Plan 1. Patient was admitted on a [9.39] status. 2. Complete history was obtained. 3. With patients permission, family will be contacted and database will be expanded. 4. Patients medication regimen will be reviewed and changed accordingly. 5. Patient will be provided with protected environment. 6. Patient will be treated with individual, group, and milieu therapies. 7. Patient will receive supportive psych-education. 8. Discharge planning will commence immediately. 9. Outpatient follow-up treatment will be strongly recommended. 10. The initial treatment plan will focus initially on: * Depression. * Risk for suicide. ESTIMATED LENGTH OF STAY: 3-5 DAYS. TIME SPENT COUNSELING AND COORDINATING INITIAL CARE: 60 minutes. Tobacco Cessation Screen Tobacco Cessation Tx Ordered?: Yes Ordered/Pending Vital Signs Vital Signs Date Time Temp Pulse Resp B/P (MAP) Pulse Ox O2 Delivery O2 Flow Rate FiO2 03/19/21 08:54 118/70 03/19/21 08:07 Room Air 03/19/21 07:05 97.3 99 20 95 Laboratory Data 24H Labs Laboratory Tests 2 03/18/21 19:11: Nucleated Red Blood Cells % (auto) 0.0, Anion Gap 4L, Glomerular Filtration Rate > 60.0, Calcium Level 9.0, Total Bilirubin 0.3, Direct Bilirubin 0.1, Aspartate Amino Transf (AST/SGOT) 18, Alanine Aminotransferase (ALT/SGPT) 30, Alkaline Phosphatase 95, Total Protein 7.0, Albumin 3.4, Albumin/Globulin Ratio 0.9, Thyroid Stimulating Hormone (TSH) 2.460, Salicylates Level 1.9L, Urine Opiates Screen NEGATIVE, Urine Methadone Screen NEGATIVE, Acetaminophen Level < 2.0L, Urine Barbiturates Screen NEGATIVE, Valproic Acid (Depakene) Level 69.2, Urine Phencyclidine Screen NEGATIVE, Urine Amphetamines Screen NEGATIVE, Urine Benzodiazepines Screen NEGATIVE, Urine Cocaine Metabolite Screen NEGATIVE, Urine Cannabinoids Screen NEGATIVE, Ethyl Alcohol Level < 0.003 03/18/21 22:02: Coronavirus (COVID-19)(PCR) NEGATIVE, Influenza Type A (RT-PCR) NEGATIVE, Influenza Type B (RT-PCR) NEGATIVE, Respiratory Syncytial Virus (PCR) NEGATIVE CBC/BMP Laboratory Tests 03/18/21 19:11 Medications Scheduled Amantadine HCl (Amantadine) 100 Mg Tablet, 100 MG PO BID, (Reported) Clonidine Hcl (Clonidine HCl) 0.1 Mg Tablet, 0.1 MG PO QHS, (Reported) Clozapine (Clozapine) 200 Mg Tablet, 200 MG PO BID, (Reported) Divalproex Sodium (Divalproex Sodium ER) 500 Mg Tab.er.24h, 500 MG PO BID, (Reported) Docusate Sodium (Docusate Sodium) 100 Mg Capsule, 100 MG PO BID, (Reported) HOLD FOR LOOSE STOOLS Levothyroxine Sodium (Synthroid) 100 Mcg Tablet, 100 MCG PO DAILY, (Reported) Lisinopril (Lisinopril) 5 Mg Tablet, 5 MG PO DAILY, (Reported) Multivitamins (Thera M Plus Tablet) 1 Each Tablet, 1 TAB PO DAILY, (Reported) Olanzapine (Olanzapine) 15 Mg Tablet, 15 MG PO QHS, (Reported) Pantoprazole Sodium (Pantoprazole Sodium) 40 Mg Tablet.dr, 40 MG PO DAILY, (Reported) Tamsulosin HCl (Flomax) 0.4 Mg Capsule, 0.4 MG PO BID, (Reported) Tiotropium [place] (Spiriva) 18 Mcg Cap.w.dev, 18 MCG INH DAILY, (Reported) Trihexyphenidyl HCl (Trihexyphenidyl HCl) 2 Mg Tablet, 5 MG PO DAILY, (Reported) Venlafaxine HCl (Effexor Xr) 75 Mg Cap.er.24h, 75 MG PO DAILY, (Reported) Scheduled PRN Cyclobenzaprine HCl (Cyclobenzaprine HCl) 5 Mg Tablet, 5 MG PO TID PRN for MUSCLE SPASMS, (Reported) Ibuprofen (Ibuprofen) 600 Mg Tablet, 600 MG PO BID PRN for PAIN, (Reported) Nicotine Polacrilex (Nicotine Gum) 2 Mg Gum, 2 MG MT Q2H PRN for SMOKING CESSATION, (Reported) Polyethylene Glycol 3350 (Miralax) 17 Gm Powd.pack, 17 GM PO DAILY PRN for CONSTIPATION, (Reported) Allergies Coded Allergies: amoxapine (Verified Allergy, Unknown, 09/19/20) Reported on [facility] Emergency Fact sheet haloperidol (Verified Adverse Reaction, Severe, EPS, Difficulty Breathing, 09/19/20) loxapine (Verified Adverse Reaction, Severe, Tounge protrsion, diff breathing, 09/19/20) lithium (Verified Adverse Reaction, Intermediate, speech problems, 09/19/20) JENNA DYER NP March 19, 2021 14:41
[2021-03-19 17:35] VITALS: BP 105/66
[2021-03-19] MEDS: OLANZapine 5 MG TAB PO SCH (20:36)
[2021-03-19] MEDS: cloNIDine 0.1MG TABLET PO SCH (20:37)
[2021-03-20] MEDS: LEVOTHYROXINE 100MCG TABLET (0.1MG) PO SCH (06:05)
[2021-03-20 06:19] VITALS: BP 147/78
[2021-03-20] MEDS: AMANTADINE 100MG TABLET PO SCH ×2 (08:10→20:37)
[2021-03-20] MEDS: lisinopriL 5 MG TAB PO SCH (08:10)
[2021-03-20] MEDS: TAMSULOSIN 0.4 MG CAP PO SCH ×2 (08:10→20:37)
[2021-03-20] MEDS: cloZAPine 100 MG TAB (S0136) PO SCH ×2 (08:10→20:37)
[2021-03-20] MEDS: MULTIVITAMINS/MINERALS THERAP 1 TAB PO SCH (08:11)
[2021-03-20] MEDS: DOCUSATE SODIUM 100MG CAPSULE PO SCH ×2 (08:11→20:37)
[2021-03-20] MEDS: TIOTROPIUM INHALER/CAPSULE (SPIRIVA) INH SCH (08:11)
[2021-03-20] MEDS: VENLAFAXINE **XR** 75MG CAPSULE PO SCH (08:11)
[2021-03-20] MEDS: DIVALPROEX 500MG *ER* TAB PO SCH ×2 (08:11→20:38)
[2021-03-20] MEDS: PANTOPRAZOLE 40MG TAB (PROTONIX) PO SCH (08:11)
[2021-03-20] MEDS: NICOTINE 21MG/24HR 1 EA TRANSDERMAL TD SCH (08:13)
[2021-03-20] MEDS: TRIHEXYPHENIDYL 2 MG TAB PO SCH (09:21)
--- NOTE | 2021-03-20 10:02 | MHIPNPDOC ---
[facility] Progress Note Progress Note DATE OF SERVICE: 03/20/21 HISTORY: Patient is a 60 -year-old Single, Disabled, Domiciled, , male, who reports he was having suicidal and homicidal thoughts and paranoia. He states "I am feeling more suicidal than homicidal. I am having thoughts of cutting or hanging myself. I was here 8 months ago. I was hearing voices in the house, I feel that people can read my mind." He reports having depressive symptoms: difficulty concentrating, poor focus, poor sleep, suicidal thoughts, depressed mood. "I have been clean for 25 years, I go to AA meeting daily." States he does not want to return to using substances daily. PER ED REPORT: Pt states "I am having ideas of paranoia, SI and HI, and voices." Pt's speech is very pressured and he rocks throughout the interview. Pt reports that the voices in his head talk bad about him. The voices make him scared that people do not like him and want to hurt him. He reports that he is scared that he may do something to act on his thoughts of SI. He mentions cutting and hanging at the time of interview. The homicidal thoughts he describes are vague with no target or plan, however he becomes a little more anxious when discussing them and state "I can't stand myself when I have those thoughts" Pt reports being compliant with his medication and involved in his treatment. He has a therapist and med provider through [facility] and medical provider at [facility]. Pt is a resident at [facility] and resides with 11 or 12 other individuals. Pt does not feel safe with his thoughts and does not believe he is able to contract for safety. . VITAL SIGNS: See below. NEW TEST RESULTS: . CURRENT MEDICATIONS: See below. MENTAL STATUS EXAMINATION: Patient is a 60 -year-old Single, Disabled, Domiciled, , male, who came in reporting that he was having suicidal and homicidal thoughts and paranoia. He is well kempt today. Speech: Clear. Is normal rate and volume Language skills are intact Thought processes including: Denies SI Thought content: Denies SI/HI. Description of abnormal or psychotic thoughts:Denies AV/ MARIE/VH Judgment: fair Insight: fair Orientation: Awake, alert and oriented X3 Recent and remote memory: Intact Attention span and concentration: Average Language: intact Fund of knowledge: Average Mood: Depressed, says he is less depressed today Affect: Constricted DIAGNOSES: Schizoaffective Disorder Nicotine Use Disorder ASSESSMENT: Patient is seen today. He is well kempt. He is Alert and oriented X3. He states that he feel like a big weight has been lifted off his shoulders since he was admitted. States that he has struggled with Depression for many years and the past three weeks his depression got worse, he was restless, had poor concentration, trouble sleeping, was having suicidal thoughts and strong urges to cut his wrists, was having homicidal thoughts about his neighbors. He thought his neighbors were saying negative things about him and thought of killing them. He resides at [facility] residence and resides with 11 or 12 other individuals. Today, he rates his depression at 3/10, he denies SI, denies AH/VH/ VH. States that he likes where he lives and now realizes that his neighbors were not actually talking about him. Says his neighbors are usually friendly with him. States that he plans to continue going to his AA meetings after discharge. He has been sober from alcohol and substances for 26 years. Says his sponsor is a strong support system and his sponsor calls him every other day to check on him. He is compliant with his treatment plan. Says that he attended group therapy. Says he is ready for discharge tomorrow. He is observed interacting with staff in the break room. MANAGEMENT PLAN: Continue with all medications TIME SPENT:25 minutes. Vital Signs Vital Signs Date Time Temp Pulse Resp B/P (MAP) Pulse Ox O2 Delivery O2 Flow Rate FiO2 03/20/21 08:10 147/78 03/20/21 06:19 97.8 96 18 97 Room Air Current Medications Current Medications Medications (Trade) Dose Ordered Sig/Billy Route PRN Reason Start Time Stop Time Status Last Admin Dose Admin Acetaminophen (Tylenol Tab) 650 mg Q6HP PRN PO HEADACHE or DISCOMFORT 03/18/21 23:15 Al Hydrox/Mg Hydrox/Simethicone (Mylanta) 30 ml Q4HP PRN PO HEARTBURN/INDIGESTION 03/18/21 23:15 Amantadine HCl (Symmetrel) 100 mg BID PO 03/18/21 21:00 03/20/21 08:10 Clonidine HCl (Catapres) 0.1 mg QHS PO 5/4/21 21:00 03/19/21 20:37 Clozapine (Clozaril) 200 mg BID PO 03/18/21 21:00 03/20/21 08:10 Cyclobenzaprine HCl (Flexeril) 5 mg TID PRN PO MUSCLE SPASMS 03/18/21 23:15 Divalproex Sodium (Depakote Er) 500 mg BID PO 03/18/21 21:00 03/20/21 08:11 Docusate Sodium (Colace) 100 mg BID PO 03/18/21 21:00 03/20/21 08:11 Home Med (Med Rec Complete!) ASDIRECTED XX 03/18/21 22:45 03/18/21 22:47 DC Ibuprofen (Advil) 600 mg BID PRN PO PAIN 03/18/21 23:15 Levothyroxine Sodium (Synthroid) 100 mcg DAILY@0600 PO 03/19/21 06:00 03/20/21 06:05 Lisinopril (Prinivil) 5 mg DAILY PO 03/19/21 09:00 03/20/21 08:10 Lorazepam (Ativan) 1 mg Q4HP PRN PO ANXIETY 03/18/21 23:15 03/20/21 23:15 03/19/21 08:56 Lorazepam (Ativan) 1 mg STAT STAT PO 03/18/21 22:04 03/18/21 22:05 DC Magnesium Hydroxide (Milk Of Magnesia) 30 ml DAILYPRN PRN PO CONSTIPATION 03/18/21 23:15 Multivitamins (Theragram-M) 1 tab DAILY PO 03/19/21 09:00 03/20/21 08:11 Nicotine (Nicoderm Cq 21mg) 1 patch DAILY TD 03/19/21 09:00 03/20/21 08:13 Olanzapine (ZyPREXA) 15 mg QHS PO 03/18/21 21:00 03/19/21 20:36 Pantoprazole Sodium (Protonix) 40 mg DAILY PO 03/19/21 09:00 03/20/21 08:11 Polyethylene Glycol (Miralax) 1 pkt DAILY PRN PO CONSTIPATION 03/18/21 23:15 Tamsulosin HCl (Flomax) 0.4 mg BID PO 03/18/21 21:00 03/20/21 08:10 Tiotropium [place] (Spiriva Handihaler) 1 inhalation DAILY@0800 INH 03/19/21 08:00 03/20/21 08:11 Trazodone HCl (Desyrel) 50 mg QHSP PRN PO INSOMNIA 03/18/21 23:15 Trihexyphenidyl HCl (Artane) 5 mg DAILY PO 03/19/21 09:00 03/19/21 10:48 Venlafaxine HCl (Effexor Xr) 75 mg DAILY PO 03/19/21 09:00 03/20/21 08:11 Allergies Coded Allergies: amoxapine (Verified Allergy, Unknown, 09/19/20) Reported on [facility] Emergency Fact sheet haloperidol (Verified Adverse Reaction, Severe, EPS, Difficulty Breathing, 09/19/20) loxapine (Verified Adverse Reaction, Severe, Tounge protrsion, diff breathing, 09/19/20) lithium (Verified Adverse Reaction, Intermediate, speech problems, 09/19/20) JENNA DYER NP March 20, 2021 10:02
[2021-03-20 18:51] VITALS: BP 127/67
[2021-03-20] MEDS: cloNIDine 0.1MG TABLET PO SCH (20:37)
[2021-03-20] MEDS: OLANZapine 5 MG TAB PO SCH (20:37)
[2021-03-21 06:04] VITALS: BP 98/65
[2021-03-21] MEDS: LEVOTHYROXINE 100MCG TABLET (0.1MG) PO SCH (06:17)
[2021-03-21] MEDS: TAMSULOSIN 0.4 MG CAP PO SCH (08:40)
[2021-03-21] MEDS: PANTOPRAZOLE 40MG TAB (PROTONIX) PO SCH (08:41)
[2021-03-21] MEDS: cloZAPine 100 MG TAB (S0136) PO SCH (08:41)
[2021-03-21] MEDS: MULTIVITAMINS/MINERALS THERAP 1 TAB PO SCH (08:41)
[2021-03-21] MEDS: DIVALPROEX 500MG *ER* TAB PO SCH (08:41)
[2021-03-21] MEDS: TRIHEXYPHENIDYL 2 MG TAB PO SCH (08:41)
[2021-03-21] MEDS: TIOTROPIUM INHALER/CAPSULE (SPIRIVA) INH SCH (08:42)
[2021-03-21] MEDS: DOCUSATE SODIUM 100MG CAPSULE PO SCH (08:42)
[2021-03-21] MEDS: VENLAFAXINE **XR** 75MG CAPSULE PO SCH (08:42)
[2021-03-21 08:44] VITALS: BP 110/74
[2021-03-21] MEDS: lisinopriL 5 MG TAB PO SCH (08:44)
[2021-03-21] MEDS: NICOTINE 21MG/24HR 1 EA TRANSDERMAL TD SCH (08:45)
[2021-03-21] MEDS: AMANTADINE 100MG TABLET PO SCH (09:00)
[2021-03-21] MEDS ORDERED: NICO21PAT TD (10:05)
[2021-03-21] MEDS ORDERED: ACET1TAB55 PO (10:16)
--- NOTE | 2021-03-21 10:49 | MHDSPDOC ---
[facility] Discharge Summary Discharge Summary DATE OF ADMISSION: March 18, 2021 at 23:12 DATE OF DISCHARGE: March 21, 2021 at 1042 DISCHARGE DIAGNOSES: Schizoaffective Disorder Nicotine Use Disorder REASON FOR ADMISSION: Patient is a 60 -year-old Single, Disabled, Domiciled, , male, who reports he was having suicidal and homicidal thoughts and paranoia. He states "I am feeling more suicidal than homicidal. I am having thoughts of cutting or hanging myself. I was here 8 months ago. I was hearing voices in the house, I feel that people can read my mind." He reports having depressive symptoms: difficulty concentrating, poor focus, poor sleep, suicidal thoughts, depressed mood. "I have been clean for 25 years, I go to AA meeting daily." States he does not want to return to using substances daily. PER ED REPORT: Pt states "I am having ideas of paranoia, SI and HI, and voices." Pt's speech is very pressured and he rocks throughout the interview. Pt reports that the voices in his head talk bad about him. The voices make him scared that people do not like him and want to hurt him. He reports that he is scared that he may do something to act on his thoughts of SI. He mentions cutting and hanging at the time of interview. The homicidal thoughts he describes are vague with no target or plan, however he becomes a little more anxious when discussing them and state "I can't stand myself when I have those thoughts" Pt reports being compliant with his medication and involved in his treatment. He has a therapist and med provider through [facility] and medical provider at [facility]. Pt is a resident at [facility] and resides with 11 or 12 other individuals. Pt does not feel safe with his thoughts and does not believe he is able to contract for safety. VITAL SIGNS: See below. CONSULTANTS INVOLVED: See Medical H + P by Hospitalist TREATMENT AND PROGRESS ON THE UNIT: Patient was admitted to the [facility] on a legal status he was afforded the following treatment modalities: 1) Individual Therapy 2) Group Therapy 3) Medication Management 4) Milieu Therapy 5) Safe Environment HOSPITAL COURSE: Patient is admitted to [facility] on a legal status. Patient was continued on his home medications. He had been complaining of suicidal/homicidal ideations, paranoia and had urges to cut himself. Patient reported that his neighbors were talking about him, and he wanted to "kill them." Patient was compliant with medications, reporting that being in the hospital helped him recognize that his neighbors were not talking about him and that this was his paranoia. He is reporting today that he is not depressed, not anxious, not suicidal, not homicidal, denies hallucinations or paranoia. He wants to return to [facility] and go back to attending AA meetings. He spoke with [facility] today and he has the support of [facility] and his sponsor. Patient is requesting discharge today and he meets criteria for discharge by the treatment team. DISCHARGE ASSESSMENT: In today's interview, patient is alert and oriented, pts dress is appropriate. Hygiene and grooming is well-kempt. Smiles on approach and is pleasant and engaged in the interview. Denies depression and anxiety. Denies suicidal and homicidal ideation, planning or intent. Denies and is not observed with dolores, psychotic symptoms of delusions, bizarre thinking, obsessions, paranoia, ruminations illogical thoughts, flight of ideas or having poor insight and judgement. Patient has normal mentation, declines further hospitalization on a voluntary status and meets criteria for discharge today. Patient encouraged to return to hospital if symptoms worsen or change and encouraged to call unit if he/she/they needs to speak to provider for questions regarding medications or care. MENTAL STATUS EXAMINATION ON DISCHARGE: Patient is a 60 -year-old Single, Disabled, Domiciled, , male, who reports he was having suicidal and homicidal thoughts and paranoia. Speech: Is fluid, conversant, normal rate, tone and volume Language skills are intact Thought processes including: linear and goal oriented Thought content: denies depression and anxiety. Denies suicidal/homicidal ideation, planning or intent. Abstract reasoning, and computation: fair Description of associations: denies, none observed Description of abnormal or psychotic thoughts: denies, none observed. Judgment: fair Insight: fair Orientation: alert and oriented to person, place, time and situation Recent and remote memory: intact Attention span and concentration: good Language: expansive Fund of knowledge: average Mood: Euthymic Mood Affect: reactive MEDICATIONS ON DISCHARGE: All home medications were continued. PLAN/FOLLOWUP ARRANGEMENTS: [facility] The amount of time spent in the coordination of care for this patient was approximately 25 minutes. ETOH/Disorder Med Rx ETOH/DRUG DISORDER RX: N/A Vital Signs/I&Os Vital Signs Date Time Temp Pulse Resp B/P (MAP) Pulse Ox O2 Delivery O2 Flow Rate FiO2 03/21/21 08:44 110/74 03/21/21 06:04 98.9 81 18 99 Room Air Medications Scheduled Amantadine HCl (Amantadine) 100 Mg Tablet, 100 MG PO BID, (Reported) Clonidine Hcl (Clonidine HCl) 0.1 Mg Tablet, 0.1 MG PO QHS, (Reported) Clozapine (Clozapine) 200 Mg Tablet, 200 MG PO BID, (Reported) Divalproex Sodium (Divalproex Sodium ER) 500 Mg Tab.er.24h, 500 MG PO BID, (Reported) Docusate Sodium (Docusate Sodium) 100 Mg Capsule, 100 MG PO BID, (Reported) HOLD FOR LOOSE STOOLS Levothyroxine Sodium (Synthroid) 100 Mcg Tablet, 100 MCG PO DAILY, (Reported) Lisinopril (Lisinopril) 5 Mg Tablet, 5 MG PO DAILY, (Reported) Multivitamins (Thera M Plus Tablet) 1 Each Tablet, 1 TAB PO DAILY, (Reported) Nicotine (Nicotine Patch) 21 Mg Patch.td24, 1 PATCH TD DAILY for Nicotine Withdrawal, #7 Olanzapine (Olanzapine) 15 Mg Tablet, 15 MG PO QHS, (Reported) Pantoprazole Sodium (Pantoprazole Sodium) 40 Mg Tablet.dr, 40 MG PO DAILY, (Reported) Tamsulosin HCl (Flomax) 0.4 Mg Capsule, 0.4 MG PO BID, (Reported) Tiotropium [place] (Spiriva) 18 Mcg Cap.w.dev, 18 MCG INH DAILY, (Reported) Trihexyphenidyl HCl (Trihexyphenidyl HCl) 2 Mg Tablet, 5 MG PO DAILY, (Reported) Venlafaxine HCl (Effexor Xr) 75 Mg Cap.er.24h, 75 MG PO DAILY, (Reported) Scheduled PRN Acetaminophen (Acetaminophen) 325 Mg Tablet, 650 MG PO Q6HP PRN for HEADACHE or DISCOMFORT, #24 Cyclobenzaprine HCl (Cyclobenzaprine HCl) 5 Mg Tablet, 5 MG PO TID PRN for MUSCLE SPASMS, (Reported) Ibuprofen (Ibuprofen) 600 Mg Tablet, 600 MG PO BID PRN for PAIN, (Reported) Nicotine Polacrilex (Nicotine Gum) 2 Mg Gum, 2 MG MT Q2H PRN for SMOKING CESSATION, (Reported) Polyethylene Glycol 3350 (Miralax) 17 Gm Powd.pack, 17 GM PO DAILY PRN for CONSTIPATION, (Reported) Allergies Coded Allergies: amoxapine (Verified Allergy, Unknown, 09/19/20) Reported on TLS Emergency Fact sheet haloperidol (Verified Adverse Reaction, Severe, EPS, Difficulty Breathing, 09/19/20) loxapine (Verified Adverse Reaction, Severe, Tounge protrsion, diff breathing, 09/19/20) lithium (Verified Adverse Reaction, Intermediate, speech problems, 09/19/20) JENNA DYER GIS SCIENTIST March 21, 2021 10:49
== END 2021-03-21 11:44 | disposition home or self-care (01) | DRG 885 ==
LOC: M ED 17:15 → M ED INP 23:12 → M PSY 23:45
PROVIDERS: ADMIT Psychiatry & Neurology Psychiatry; ATTEND Psychiatry & Neurology Psychiatry
DX: F25.9 Schizoaffective disorder, unspecified (principal); R45.851 Suicidal ideations; E03.9 Hypothyroidism, unspecified; N40.0 Benign prostatic hyperplasia without lower urinary tract symptoms; F41.9 Anxiety disorder, unspecified; F17.290 Nicotine dependence, other tobacco product, uncomplicated; K21.9 Gastro-esophageal reflux disease without esophagitis; J44.9 Chronic obstructive pulmonary disease, unspecified; I10 Essential (primary) hypertension; Z20.822 Contact with and (suspected) exposure to COVID-19; Z79.899 Other long term (current) drug therapy; Z88.8 Allergy status to other drugs, medicaments and biological substances; Z90.49 Acquired absence of other specified parts of digestive tract; Z91.5 Personal history of self-harm

== ENCOUNTER → 2021-03-28 | Outpatient (CLI) | payer MEDICARE, MEDICAID ==
[~2021-03-28] MED LIST changes: +ACET1TAB55 PO; +AMAN100T PO; +EFFE75CA2 PO; +IBUP1TAB6 PO; +LEVO100T5 PO; +NICO21PAT TD; +NICO2GUM43 MT; +SYNT100T PO; +TAB-TAB3 PO; +TAMS1CAP17 PO; +TRIH2TAB3 PO
[2021-03-28 10:26] LABS: BASO # 0.1 10^3/uL (0.0-0.2); BASO % 0.6 % (0.0-1.0); EOS # 0.1 10^3/uL (0.0-0.5); EOS % 1.7 % (0.0-3.0); HEMATOCRIT 40.7 % (42.0-52.0); HEMOGLOBIN 13.2 g/dl (13.5-17.5); LYMPH # 2.5 10^3/uL (1.5-5.0); MEAN CORPUSCULAR HGB CONC 32.4 g/dl (32.0-36.5); MEAN CORPUSCULAR VOLUME 98.8 fl (80.0-96.0); MONO # 0.9 10^3/uL (0.0-0.8); MONO % 10.9 % (2.0-8.0); NEUTROPHILS # 4.7 10^3/uL (1.5-8.5); NEUTROPHILS % 56.3 % (36.0-66.0); PLATELET COUNT, AUTOMATED 172 10^3/uL (150-450); RED BLOOD COUNT 4.12 10^6/uL (4.30-6.10); WHITE BLOOD COUNT 8.3 10^3/uL (4.0-10.0)
== END ==
LOC: M LAB 09:38
PROVIDERS: ATTEND Nurse Practitioner Psychiatric/Mental Health
DX: F25.0 Schizoaffective disorder, bipolar type (principal)

== ENCOUNTER → 2021-04-30 | Outpatient (CLI) | payer MEDICARE, MEDICAID ==
[2021-04-30 16:45] LABS: BASO # 0.1 10^3/uL (0.0-0.2); BASO % 0.7 % (0.0-1.0); EOS # 0.1 10^3/uL (0.0-0.5); EOS % 1.7 % (0.0-3.0); HEMATOCRIT 40.5 % (42.0-52.0); HEMOGLOBIN 13.3 g/dl (13.5-17.5); LYMPH # 2.9 10^3/uL (1.5-5.0); LYMPH % 34.9 % (24.0-44.0); MEAN CORPUSCULAR HEMOGLOBIN 32.1 pg (27.0-33.0); MEAN CORPUSCULAR HGB CONC 32.8 g/dl (32.0-36.5); MEAN CORPUSCULAR VOLUME 97.8 fl (80.0-96.0); MONO # 0.8 10^3/uL (0.0-0.8); MONO % 10.2 % (2.0-8.0); NEUTROPHILS # 4.3 10^3/uL (1.5-8.5); PLATELET COUNT, AUTOMATED 181 10^3/uL (150-450); RED BLOOD COUNT 4.14 10^6/uL (4.30-6.10); WHITE BLOOD COUNT 8.2 10^3/uL (4.0-10.0)
== END ==
LOC: M LAB 14:47
PROVIDERS: ATTEND Nurse Practitioner Psychiatric/Mental Health
DX: F20.9 Schizophrenia, unspecified (principal)

== ENCOUNTER → 2021-06-03 | Outpatient (CLI) | payer MEDICARE, MEDICAID ==
[~2021-06-03] MED LIST changes: -OLAN15TA PO; +OLAN15TA13 PO
[2021-06-03 08:59] LABS: BASO # 0.1 10^3/uL (0.0-0.2); BASO % 0.8 % (0.0-1.0); EOS # 0.3 10^3/uL (0.0-0.5); EOS % 2.9 % (0.0-3.0); HEMATOCRIT 42.3 % (42.0-52.0); LYMPH # 2.9 10^3/uL (1.5-5.0); LYMPH % 31.4 % (24.0-44.0); MEAN CORPUSCULAR HEMOGLOBIN 31.6 pg (27.0-33.0); MEAN CORPUSCULAR HGB CONC 33.1 g/dl (32.0-36.5); MEAN CORPUSCULAR VOLUME 95.5 fl (80.0-96.0); MONO # 1.2 10^3/uL (0.0-0.8); MONO % 13.1 % (2.0-8.0); NEUTROPHILS # 4.8 10^3/uL (1.5-8.5); NEUTROPHILS % 51.4 % (36.0-66.0); PLATELET COUNT, AUTOMATED 216 10^3/uL (150-450); RED BLOOD COUNT 4.43 10^6/uL (4.30-6.10); WHITE BLOOD COUNT 9.3 10^3/uL (4.0-10.0)
== END ==
LOC: M LAB 08:06
PROVIDERS: ATTEND Nurse Practitioner Psychiatric/Mental Health
DX: F20.9 Schizophrenia, unspecified (principal)

== ENCOUNTER → 2021-06-05 | Outpatient (CLI) | payer MEDICARE, MEDICAID ==
[2021-06-05 09:24] LABS: ALT/SGPT 29 U/L (12-78); BILIRUBIN,TOTAL 0.3 MG/DL (0.2-1.0); BLOOD UREA NITROGEN 15 MG/DL (7-18); CALCIUM LEVEL 8.7 MG/DL (8.8-10.2); CARBON DIOXIDE LEVEL 29 MEQ/L (21-32); CHLORIDE LEVEL 109 MEQ/L (98-107); CHOLESTEROL LEVEL 163 MG/DL (<200); CHOLESTEROL RISK RATIO 3.395 (<5); CREATININE FOR GFR 0.99 MG/DL (0.70-1.30); GLOMERULAR FILTRATION RATE > 60.0 (>49); GLUCOSE, FASTING 82 MG/DL (70-100); HDL CHOLESTEROL 48 MG/DL (>40); NON-HDL-C 115 MG/DL; POTASSIUM SERUM 4.7 MEQ/L (3.5-5.1); SODIUM LEVEL 144 MEQ/L (136-145); TRIGLYCERIDES LEVEL 74 MG/DL (<150)
[2021-06-05 09:25] LABS: ALBUMIN 2.9 GM/DL (3.2-5.2); LDL CHOLESTEROL 100 MG/DL (<100); TOTAL PROTEIN 6.1 GM/DL (6.4-8.2); VALPROIC ACID (DEPAKOTE) 56.4 UG/ML (50.0-100.0)
[2021-06-05 09:28] LABS: HEMOGLOBIN A1c 5.5 %
== END ==
LOC: M LAB 07:29
PROVIDERS: ATTEND Nurse Practitioner Psychiatric/Mental Health
DX: F25.0 Schizoaffective disorder, bipolar type (principal)
CPT/HCPCS: 36415; 80053; 80061; 80164; 83036; 84443; G0480

== ENCOUNTER → 2021-07-03 | Outpatient (CLI) | payer MEDICARE, MEDICAID ==
[2021-07-03 11:44] LABS: BASO % 0.5 % (0.0-1.0); EOS # 0.1 10^3/uL (0.0-0.5); EOS % 1.2 % (0.0-3.0); HEMATOCRIT 39.7 % (42.0-52.0); HEMOGLOBIN 13.3 g/dl (13.5-17.5); LYMPH # 1.9 10^3/uL (1.5-5.0); LYMPH % 22.2 % (24.0-44.0); MEAN CORPUSCULAR HGB CONC 33.5 g/dl (32.0-36.5); MEAN CORPUSCULAR VOLUME 95.4 fl (80.0-96.0); MONO # 1.4 10^3/uL (0.0-0.8); MONO % 16.3 % (2.0-8.0); NEUTROPHILS % 59.2 % (36.0-66.0); PLATELET COUNT, AUTOMATED 152 10^3/uL (150-450); RED BLOOD COUNT 4.16 10^6/uL (4.30-6.10); WHITE BLOOD COUNT 8.4 10^3/uL (4.0-10.0)
== END ==
LOC: M LAB 11:03
PROVIDERS: ATTEND Nurse Practitioner Psychiatric/Mental Health
DX: F25.0 Schizoaffective disorder, bipolar type (principal)

== ENCOUNTER → 2021-08-05 | Outpatient (CLI) | payer MEDICARE, MEDICAID ==
[2021-08-05 09:51] LABS: BASO # 0.1 10^3/uL (0.0-0.2); BASO % 1.1 % (0.0-1.0); EOS # 0.2 10^3/uL (0.0-0.5); EOS % 1.9 % (0.0-3.0); HEMATOCRIT 43.3 % (42.0-52.0); HEMOGLOBIN 14.4 g/dl (13.5-17.5); LYMPH # 3.2 10^3/uL (1.5-5.0); LYMPH % 33.9 % (24.0-44.0); MEAN CORPUSCULAR HEMOGLOBIN 31.6 pg (27.0-33.0); MEAN CORPUSCULAR HGB CONC 33.3 g/dl (32.0-36.5); MEAN CORPUSCULAR VOLUME 95.2 fl (80.0-96.0); MONO # 1.1 10^3/uL (0.0-0.8); MONO % 11.6 % (2.0-8.0); NEUTROPHILS # 4.8 10^3/uL (1.5-8.5); NEUTROPHILS % 50.9 % (36.0-66.0); PLATELET COUNT, AUTOMATED 176 10^3/uL (150-450); RED BLOOD COUNT 4.55 10^6/uL (4.30-6.10); WHITE BLOOD COUNT 9.4 10^3/uL (4.0-10.0)
== END ==
LOC: M LAB 09:07
PROVIDERS: ATTEND Nurse Practitioner Psychiatric/Mental Health
DX: F31.9 Bipolar disorder, unspecified (principal)

== ENCOUNTER → 2021-09-05 | Outpatient (CLI) | payer MEDICARE, MEDICAID ==
[2021-09-05 10:40] LABS: BASO # 0.1 10^3/uL (0.0-0.2); BASO % 0.7 % (0.0-1.0); EOS # 0.1 10^3/uL (0.0-0.5); EOS % 1.5 % (0.0-3.0); HEMATOCRIT 41.1 % (42.0-52.0); HEMOGLOBIN 13.6 g/dl (13.5-17.5); LYMPH # 2.6 10^3/uL (1.5-5.0); LYMPH % 34.1 % (24.0-44.0); MEAN CORPUSCULAR HEMOGLOBIN 31.4 pg (27.0-33.0); MEAN CORPUSCULAR HGB CONC 33.1 g/dl (32.0-36.5); MEAN CORPUSCULAR VOLUME 94.9 fl (80.0-96.0); MONO # 1.1 10^3/uL (0.0-0.8); MONO % 14.1 % (2.0-8.0); NEUTROPHILS # 3.7 10^3/uL (1.5-8.5); NEUTROPHILS % 49.3 % (36.0-66.0); PLATELET COUNT, AUTOMATED 163 10^3/uL (150-450); RED BLOOD COUNT 4.33 10^6/uL (4.30-6.10); WHITE BLOOD COUNT 7.5 10^3/uL (4.0-10.0)
== END ==
LOC: M LAB 09:32
PROVIDERS: ATTEND Nurse Practitioner Psychiatric/Mental Health
DX: F25.0 Schizoaffective disorder, bipolar type (principal)

== ENCOUNTER → 2021-10-07 | Outpatient (CLI) | payer MEDICARE, MEDICAID ==
[2021-10-07 14:59] LABS: BASO # 0.1 10^3/uL (0.0-0.2); BASO % 0.6 % (0.0-1.0); EOS # 0.1 10^3/uL (0.0-0.5); EOS % 1.4 % (0.0-3.0); HEMATOCRIT 40.1 % (42.0-52.0); HEMOGLOBIN 13.3 g/dl (13.5-17.5); LYMPH # 3.1 10^3/uL (1.5-5.0); MEAN CORPUSCULAR HEMOGLOBIN 31.4 pg (27.0-33.0); MEAN CORPUSCULAR HGB CONC 33.2 g/dl (32.0-36.5); MEAN CORPUSCULAR VOLUME 94.8 fl (80.0-96.0); MONO % 10.2 % (2.0-8.0); NEUTROPHILS # 5.1 10^3/uL (1.5-8.5); NEUTROPHILS % 54.4 % (36.0-66.0); PLATELET COUNT, AUTOMATED 194 10^3/uL (150-450); RED BLOOD COUNT 4.23 10^6/uL (4.30-6.10); WHITE BLOOD COUNT 9.3 10^3/uL (4.0-10.0)
== END ==
LOC: M LAB 14:30
PROVIDERS: ATTEND Nurse Practitioner Psychiatric/Mental Health
DX: F25.0 Schizoaffective disorder, bipolar type (principal)

== ENCOUNTER → 2021-11-05 | Outpatient (CLI) | payer MEDICARE, MEDICAID ==
[~2021-11-05] MED LIST changes: -LISI-898 PO; +LISI5TAB11 PO
[2021-11-05 10:45] LABS: BASO # 0.1 10^3/uL (0.0-0.2); BASO % 0.7 % (0.0-1.0); EOS # 0.2 10^3/uL (0.0-0.5); EOS % 2.2 % (0.0-3.0); HEMATOCRIT 39.5 % (42.0-52.0); HEMOGLOBIN 12.9 g/dl (13.5-17.5); LYMPH # 2.7 10^3/uL (1.5-5.0); MEAN CORPUSCULAR HEMOGLOBIN 31.5 pg (27.0-33.0); MEAN CORPUSCULAR HGB CONC 32.7 g/dl (32.0-36.5); MEAN CORPUSCULAR VOLUME 96.3 fl (80.0-96.0); MONO # 1.1 10^3/uL (0.0-0.8); MONO % 12.4 % (2.0-8.0); NEUTROPHILS # 4.7 10^3/uL (1.5-8.5); NEUTROPHILS % 53.2 % (36.0-66.0); PLATELET COUNT, AUTOMATED 180 10^3/uL (150-450); WHITE BLOOD COUNT 8.7 10^3/uL (4.0-10.0)
== END ==
LOC: M LAB 10:11
PROVIDERS: ATTEND Nurse Practitioner Psychiatric/Mental Health
DX: F25.0 Schizoaffective disorder, bipolar type (principal)

== ENCOUNTER → 2021-12-08 | Outpatient (CLI) | payer MEDICARE, MEDICAID ==
[2021-12-08 15:14] LABS: BASO # 0.1 10^3/uL (0.0-0.2); BASO % 0.6 % (0.0-1.0); EOS # 0.2 10^3/uL (0.0-0.5); EOS % 2.1 % (0.0-3.0); HEMATOCRIT 42.4 % (42.0-52.0); HEMOGLOBIN 13.9 g/dl (13.5-17.5); LYMPH % 33.9 % (24.0-44.0); MEAN CORPUSCULAR HEMOGLOBIN 31.5 pg (27.0-33.0); MEAN CORPUSCULAR HGB CONC 32.8 g/dl (32.0-36.5); MEAN CORPUSCULAR VOLUME 96.1 fl (80.0-96.0); NEUTROPHILS # 4.6 10^3/uL (1.5-8.5); NEUTROPHILS % 51.9 % (36.0-66.0); PLATELET COUNT, AUTOMATED 187 10^3/uL (150-450); RED BLOOD COUNT 4.41 10^6/uL (4.30-6.10); WHITE BLOOD COUNT 8.8 10^3/uL (4.0-10.0)
== END ==
LOC: M LAB 14:41
PROVIDERS: ATTEND Nurse Practitioner Psychiatric/Mental Health
DX: F31.9 Bipolar disorder, unspecified (principal)

== ENCOUNTER → 2022-01-06 | Outpatient (CLI) | payer MEDICARE, MEDICAID ==
[2022-01-06 10:36] LABS: BASO # 0.1 10^3/uL (0.0-0.2); BASO % 0.7 % (0.0-1.0); EOS # 0.2 10^3/uL (0.0-0.5); EOS % 1.7 % (0.0-3.0); HEMATOCRIT 41.6 % (42.0-52.0); HEMOGLOBIN 13.8 g/dl (13.5-17.5); LYMPH # 2.8 10^3/uL (1.5-5.0); LYMPH % 31.5 % (24.0-44.0); MEAN CORPUSCULAR HEMOGLOBIN 31.9 pg (27.0-33.0); MEAN CORPUSCULAR HGB CONC 33.2 g/dl (32.0-36.5); MEAN CORPUSCULAR VOLUME 96.1 fl (80.0-96.0); MONO # 1.2 10^3/uL (0.0-0.8); MONO % 13.1 % (2.0-8.0); NEUTROPHILS # 4.7 10^3/uL (1.5-8.5); NEUTROPHILS % 52.7 % (36.0-66.0); PLATELET COUNT, AUTOMATED 172 10^3/uL (150-450); RED BLOOD COUNT 4.33 10^6/uL (4.30-6.10); WHITE BLOOD COUNT 8.8 10^3/uL (4.0-10.0)
== END ==
LOC: M LAB 09:48
PROVIDERS: ATTEND Nurse Practitioner Psychiatric/Mental Health
DX: F31.9 Bipolar disorder, unspecified (principal)

== ENCOUNTER → 2022-02-02 | Outpatient (CLI) | payer MEDICARE, MEDICAID ==
[2022-02-02 10:18] LABS: BASO # 0.1 10^3/uL (0.0-0.2); BASO % 0.8 % (0.0-1.0); EOS # 0.1 10^3/uL (0.0-0.5); EOS % 1.4 % (0.0-3.0); HEMATOCRIT 42.8 % (42.0-52.0); HEMOGLOBIN 14.1 g/dl (13.5-17.5); LYMPH # 2.7 10^3/uL (1.5-5.0); LYMPH % 31.4 % (24.0-44.0); MEAN CORPUSCULAR HEMOGLOBIN 31.8 pg (27.0-33.0); MEAN CORPUSCULAR HGB CONC 32.9 g/dl (32.0-36.5); MEAN CORPUSCULAR VOLUME 96.4 fl (80.0-96.0); MONO # 1.2 10^3/uL (0.0-0.8); MONO % 13.5 % (2.0-8.0); NEUTROPHILS # 4.5 10^3/uL (1.5-8.5); NEUTROPHILS % 52.3 % (36.0-66.0); PLATELET COUNT, AUTOMATED 178 10^3/uL (150-450); RED BLOOD COUNT 4.44 10^6/uL (4.30-6.10); WHITE BLOOD COUNT 8.6 10^3/uL (4.0-10.0)
== END ==
LOC: M LAB 09:24
PROVIDERS: ATTEND Nurse Practitioner Psychiatric/Mental Health
DX: F31.9 Bipolar disorder, unspecified (principal)

== ENCOUNTER → 2022-03-24 | Outpatient (REF) | payer MEDICARE, MEDICAID ==
[2022-03-24 13:35] LABS: APPEARANCE, URINE HAZY (CLEAR); BACTERIA, URINE AUTO NEGATIVE (NEGATIVE); BILIRUBIN, URINE AUTO NEGATIVE (NEGATIVE); BLOOD, URINE BLOOD NEGATIVE (NEGATIVE); COLOR, URINE AMBER (YELLOW); GLUCOSE, URINE (UA) AUTO NEGATIVE (NEGATIVE); KETONE, URINE AUTO NEGATIVE (NEGATIVE); LEUKOCYTE ESTERASE, URINE AUTO NEGATIVE (NEGATIVE); MUCUS, URINE SMALL (NEGATIVE); NITRITE, URINE AUTO NEGATIVE (NEGATIVE); PROTEIN, URINE AUTO NEGATIVE (NEGATIVE); RBC, URINE AUTO 0 /HPF (0-3); SPECIFIC GRAVITY URINE AUTO 1.016 (1.002-1.035); SQUAMOUS EPITHELIAL CELL UR AU 0 /HPF (0-6); WBC, URINE AUTO 0 /HPF (0-3)
== END ==
LOC: M SMT 12:52
PROVIDERS: ATTEND Nurse Practitioner Women's Health
DX: N40.0 Benign prostatic hyperplasia without lower urinary tract symptoms (principal)

== ENCOUNTER → 2022-03-25 | Outpatient (CLI) | payer MEDICARE, MEDICAID | LOC: M LAB 09:31 | PROVIDERS: ATTEND Nurse Practitioner Women's Health | DX: Z12.5 Encounter for screening for malignant neoplasm of prostate (principal) | CPT/HCPCS: 36415; G0103 ==

== ENCOUNTER → 2022-04-07 | Outpatient (CLI) | payer MEDICARE, MEDICAID ==
[2022-04-07 10:41] LABS: BASO # 0.1 10^3/uL (0.0-0.2); BASO % 0.7 % (0.0-1.0); EOS # 0.1 10^3/uL (0.0-0.5); EOS % 1.2 % (0.0-3.0); HEMATOCRIT 44.7 % (42.0-52.0); HEMOGLOBIN 14.9 g/dl (13.5-17.5); LYMPH # 2.4 10^3/uL (1.5-5.0); LYMPH % 24.7 % (24.0-44.0); MEAN CORPUSCULAR HEMOGLOBIN 32.3 pg (27.0-33.0); MEAN CORPUSCULAR HGB CONC 33.3 g/dl (32.0-36.5); MONO # 1.1 10^3/uL (0.0-0.8); MONO % 11.2 % (2.0-8.0); NEUTROPHILS % 61.8 % (36.0-66.0); PLATELET COUNT, AUTOMATED 170 10^3/uL (150-450); RED BLOOD COUNT 4.61 10^6/uL (4.30-6.10); WHITE BLOOD COUNT 9.7 10^3/uL (4.0-10.0)
== END ==
LOC: M LAB 10:02
PROVIDERS: ATTEND Nurse Practitioner Psychiatric/Mental Health
DX: F25.0 Schizoaffective disorder, bipolar type (principal)

== ENCOUNTER → 2022-05-11 | Outpatient (CLI) | payer MEDICARE, MEDICAID ==
[2022-05-11 11:56] LABS: BASO # 0.1 10^3/uL (0.0-0.2); BASO % 0.6 % (0.0-1.0); EOS # 0.1 10^3/uL (0.0-0.5); EOS % 1.1 % (0.0-3.0); HEMATOCRIT 40.2 % (42.0-52.0); HEMOGLOBIN 13.5 g/dl (13.5-17.5); LYMPH # 2.8 10^3/uL (1.5-5.0); LYMPH % 29.7 % (24.0-44.0); MEAN CORPUSCULAR HEMOGLOBIN 32.4 pg (27.0-33.0); MEAN CORPUSCULAR HGB CONC 33.6 g/dl (32.0-36.5); MEAN CORPUSCULAR VOLUME 96.4 fl (80.0-96.0); NEUTROPHILS # 5.4 10^3/uL (1.5-8.5); PLATELET COUNT, AUTOMATED 171 10^3/uL (150-450); RED BLOOD COUNT 4.17 10^6/uL (4.30-6.10); WHITE BLOOD COUNT 9.4 10^3/uL (4.0-10.0)
[2022-05-11 12:37] LABS: ALBUMIN 3.1 GM/DL (3.2-5.2); ALT/SGPT 24 U/L (12-78); BILIRUBIN,TOTAL 0.4 MG/DL (0.2-1.0); BLOOD UREA NITROGEN 13 MG/DL (7-18); CALCIUM LEVEL 9.2 MG/DL (8.8-10.2); CARBON DIOXIDE LEVEL 28 MEQ/L (21-32); CHLORIDE LEVEL 110 MEQ/L (98-107); CHOLESTEROL LEVEL 152 MG/DL (<200); CHOLESTEROL RISK RATIO 3.377 (<5); CREATININE FOR GFR 1.09 MG/DL (0.70-1.30); GLOMERULAR FILTRATION RATE > 60.0 (>49); GLUCOSE, FASTING 89 MG/DL (70-100); HDL CHOLESTEROL 45 MG/DL (>40); LDL CHOLESTEROL 84 MG/DL (<100); NON-HDL-C 107 MG/DL; POTASSIUM SERUM 4.6 MEQ/L (3.5-5.1); SODIUM LEVEL 142 MEQ/L (136-145); THYROID STIMULATING HORMONE 0.941 uIU/ML (0.358-3.740); TOTAL PROTEIN 6.2 GM/DL (6.4-8.2); TRIGLYCERIDES LEVEL 115 MG/DL (<150); VALPROIC ACID (DEPAKOTE) 76.1 UG/ML (50.0-100.0)
[2022-05-11 13:01] LABS: TOTAL 25(OH) VITAMIN D 43.6 NG/ML (30.0-100.0); VITAMIN B12 LEVEL 511 PG/ML (247-911)
[2022-05-11 14:58] LABS: HEMOGLOBIN A1c 5.4 %
== END ==
LOC: M LAB 11:08
PROVIDERS: ATTEND Nurse Practitioner Psychiatric/Mental Health
DX: F25.0 Schizoaffective disorder, bipolar type (principal)

== ENCOUNTER → 2022-06-01 | Outpatient (REF) | payer MEDICARE, MEDICAID ==
[2022-06-01 13:58] LABS: APPEARANCE, URINE HAZY (CLEAR); BACTERIA, URINE AUTO 1+ (NEGATIVE); BILIRUBIN, URINE AUTO NEGATIVE (NEGATIVE); BLOOD, URINE BLOOD NEGATIVE (NEGATIVE); COLOR, URINE YELLOW (YELLOW); GLUCOSE, URINE (UA) AUTO NEGATIVE (NEGATIVE); KETONE, URINE AUTO NEGATIVE (NEGATIVE); LEUKOCYTE ESTERASE, URINE AUTO NEGATIVE (NEGATIVE); MUCUS, URINE SMALL (NEGATIVE); NITRITE, URINE AUTO NEGATIVE (NEGATIVE); PROTEIN, URINE AUTO NEGATIVE (NEGATIVE); RBC, URINE AUTO 1 /HPF (0-3); SQUAMOUS EPITHELIAL CELL UR AU 0 /HPF (0-6); UROBILINOGEN, URINE AUTO 0.2 mg/dL (0.0-2.0); WBC, URINE AUTO 0 /HPF (0-3)
== END ==
LOC: M SMT 12:47
PROVIDERS: ATTEND Urology
DX: R39.9 Unspecified symptoms and signs involving the genitourinary system (principal)

== ENCOUNTER → 2022-06-09 | Outpatient (CLI) | payer MEDICARE, MEDICAID ==
[2022-06-09 11:01] LABS: BASO # 0.1 10^3/uL (0.0-0.2); BASO % 0.6 % (0.0-1.0); EOS # 0.2 10^3/uL (0.0-0.5); EOS % 1.7 % (0.0-3.0); HEMATOCRIT 41.7 % (42.0-52.0); LYMPH # 2.5 10^3/uL (1.5-5.0); LYMPH % 26.6 % (24.0-44.0); MEAN CORPUSCULAR HEMOGLOBIN 31.7 pg (27.0-33.0); MEAN CORPUSCULAR HGB CONC 33.6 g/dl (32.0-36.5); MEAN CORPUSCULAR VOLUME 94.6 fl (80.0-96.0); MONO % 10.9 % (2.0-8.0); NEUTROPHILS # 5.7 10^3/uL (1.5-8.5); NEUTROPHILS % 59.8 % (36.0-66.0); PLATELET COUNT, AUTOMATED 134 10^3/uL (150-450); RED BLOOD COUNT 4.41 10^6/uL (4.30-6.10); WHITE BLOOD COUNT 9.5 10^3/uL (4.0-10.0)
[2022-06-09 11:37] LABS: ALBUMIN 3.1 GM/DL (3.2-5.2); ALT/SGPT 27 U/L (12-78); BILIRUBIN,TOTAL 0.3 MG/DL (0.2-1.0); BLOOD UREA NITROGEN 16 MG/DL (7-18); CALCIUM LEVEL 8.6 MG/DL (8.8-10.2); CARBON DIOXIDE LEVEL 24 MEQ/L (21-32); CHLORIDE LEVEL 111 MEQ/L (98-107); CHOLESTEROL LEVEL 162 MG/DL (<200); CHOLESTEROL RISK RATIO 2.945 (<5); CREATININE FOR GFR 1.02 MG/DL (0.70-1.30); GLOMERULAR FILTRATION RATE > 60.0 (>49); GLUCOSE, FASTING 85 MG/DL (70-100); HDL CHOLESTEROL 55 MG/DL (>40); LDL CHOLESTEROL 89 MG/DL (<100); NON-HDL-C 107 MG/DL; POTASSIUM SERUM 4.7 MEQ/L (3.5-5.1); SODIUM LEVEL 141 MEQ/L (136-145); TOTAL PROTEIN 6.2 GM/DL (6.4-8.2); TRIGLYCERIDES LEVEL 89 MG/DL (<150); VALPROIC ACID (DEPAKOTE) 67.6 UG/ML (50.0-100.0)
[2022-06-09 11:43] LABS: HEMOGLOBIN A1c 5.4 %
[2022-06-09 12:06] LABS: PROLACTIN 13.7 NG/ML (2.1-17.7)
[2022-06-09 12:07] LABS: VITAMIN B12 LEVEL 524 PG/ML (247-911)
== END ==
LOC: M LAB 08:58
PROVIDERS: ATTEND Nurse Practitioner Psychiatric/Mental Health
DX: F25.0 Schizoaffective disorder, bipolar type (principal); Z51.81 Encounter for therapeutic drug level monitoring; Z79.899 Other long term (current) drug therapy

== ENCOUNTER 2022-06-20 00:48 | Emergency (ER) | payer MEDICARE, MEDICAID ==
[2022-06-20] MEDS ORDERED: LIDOCAINE 1% SDV 30ML VIAL SC SCH (01:00)
[2022-06-20 01:01] LABS: HEMATOCRIT 39.1 % (42.0-52.0); HEMOGLOBIN 13.2 g/dl (13.5-17.5); MEAN CORPUSCULAR HEMOGLOBIN 31.6 pg (27.0-33.0); MEAN CORPUSCULAR HGB CONC 33.8 g/dl (32.0-36.5); MEAN CORPUSCULAR VOLUME 93.5 fl (80.0-96.0); PLATELET COUNT, AUTOMATED 197 10^3/uL (150-450); RED BLOOD COUNT 4.18 10^6/uL (4.30-6.10)
[2022-06-20] MEDS ORDERED: LIDOCAINE W/EPINEPHRINE 1% 20ML VIAL As Ordered ONE (01:01)
[2022-06-20] MEDS ORDERED: LIDOCAINE 1% SDV 5ML VIAL As Ordered ONE (01:02)
[2022-06-20] MEDS ORDERED: BOOSTRIX/ADACEL VACCINE (DIPHTH/PERTUSS/ACELL/TETANUS) 0.5ML SYR IM.IMMUN ONE (01:40)
[2022-06-20 01:41] LABS: RSV AMPLIFICATION NEGATIVE (NEGATIVE)
[2022-06-20 01:43] LABS: ACETAMINOPHEN LEVEL < 2.0 UG/ML (10.0-30.0); ALBUMIN 2.9 GM/DL (3.2-5.2); ALT/SGPT 26 U/L (12-78); BILIRUBIN,DIRECT < 0.1 MG/DL (0.0-0.2); BILIRUBIN,TOTAL 0.1 MG/DL (0.2-1.0); BLOOD UREA NITROGEN 20 MG/DL (7-18); CALCIUM LEVEL 8.7 MG/DL (8.8-10.2); CARBON DIOXIDE LEVEL 26 MEQ/L (21-32); CHLORIDE LEVEL 108 MEQ/L (98-107); CREATININE FOR GFR 1.14 MG/DL (0.70-1.30); ETHYL ALCOHOL (ETHANOL) < 0.003 % (0.000-0.010); GLOMERULAR FILTRATION RATE > 60.0 (>49); GLUCOSE, FASTING 123 MG/DL (70-100); POTASSIUM SERUM 4.3 MEQ/L (3.5-5.1); SALICYLATE LEVEL < 1.7 MG/DL (5.0-30.0); SODIUM LEVEL 141 MEQ/L (136-145); TOTAL PROTEIN 6.1 GM/DL (6.4-8.2)
[2022-06-20 03:40] LABS: AMPHETAMINES LEVEL URINE NEGATIVE (NEGATIVE); BARBITURATES URINE NEGATIVE (NEGATIVE); BENZODIAZEPINES URINE NEGATIVE (NEGATIVE); CANNABINOIDS URINE NEGATIVE (NEGATIVE); COCAINE METABOLITE URINE NEGATIVE (NEGATIVE); METHADONE URINE NEGATIVE (NEGATIVE); OPIATES URINE NEGATIVE (NEGATIVE); PHENCYCLIDINE URINE NEGATIVE (NEGATIVE)
[2022-06-20] MEDS: TIOTROPIUM INHALER/CAPSULE (SPIRIVA) INH SCH (08:00)
[2022-06-20] MEDS ORDERED: ACET-907 PO (08:38)
[2022-06-20] MEDS ORDERED: VENL150C43 PO (08:38)
[2022-06-20] MEDS ORDERED: VENL37.598 PO (08:38)
[2022-06-20] MEDS ORDERED: NICO1DIS12 TD (08:38)
[2022-06-20] MEDS ORDERED: HYDR-3363 PO (08:38)
[2022-06-20] MEDS ORDERED: FINA5TAB2 PO (08:38)
[2022-06-20] MEDS ORDERED: PATIENT COMMENT (08:39)
[2022-06-20] MEDS ORDERED: HOME MED LIST COMPLETE! XX SCH (08:40)
[2022-06-20 10:44] LABS: VALPROIC ACID (DEPAKOTE) 49.1 UG/ML (50.0-100.0)
[2022-06-20] MEDS: lisinopriL 5 MG TAB PO SCH (11:45)
[2022-06-20] MEDS: VENLAFAXINE **XR** 37.5 MG CAPSULE PO SCH (11:45)
[2022-06-20] MEDS: LEVOTHYROXINE 100MCG TABLET (0.1MG) PO SCH (11:45)
[2022-06-20] MEDS: DIVALPROEX 500MG *ER* TAB PO SCH ×2 (11:45→21:13)
[2022-06-20] MEDS: TAMSULOSIN 0.4 MG CAP PO SCH ×2 (11:45→21:13)
[2022-06-20] MEDS: TRIHEXYPHENIDYL 2 MG TAB PO SCH (11:45)
[2022-06-20] MEDS: VENLAFAXINE **XR** 75MG CAPSULE PO SCH (11:45)
[2022-06-20] MEDS: PANTOPRAZOLE 40MG TAB (PROTONIX) PO SCH (11:46)
[2022-06-20] MEDS: FINASTERIDE 5MG TAB PO SCH (11:46)
[2022-06-20] MEDS: AMANTADINE 100MG TABLET PO SCH ×2 (13:47→21:10)
[2022-06-20] MEDS ORDERED: cloNIDine 0.1MG TABLET PO SCH (21:00)
[2022-06-20] MEDS ORDERED: OLANZapine 5 MG TAB PO SCH (21:00)
[2022-06-21] MEDS: LEVOTHYROXINE 100MCG TABLET (0.1MG) PO SCH (06:00)
[2022-06-21] MEDS ORDERED: IBUPROFEN 400MG TAB PO ONE (09:45)
[2022-06-21] MEDS: VENLAFAXINE **XR** 37.5 MG CAPSULE PO SCH (10:00)
[2022-06-21] MEDS: TAMSULOSIN 0.4 MG CAP PO SCH (10:00)
[2022-06-21] MEDS: VENLAFAXINE **XR** 75MG CAPSULE PO SCH (10:01)
[2022-06-21] MEDS: PANTOPRAZOLE 40MG TAB (PROTONIX) PO SCH (10:01)
[2022-06-21] MEDS: FINASTERIDE 5MG TAB PO SCH (10:01)
[2022-06-21] MEDS: DIVALPROEX 500MG *ER* TAB PO SCH (10:01)
[2022-06-21 10:03] VITALS: BP 115/69
[2022-06-21] MEDS: lisinopriL 5 MG TAB PO SCH (10:03)
[2022-06-21] MEDS: AMANTADINE 100MG TABLET PO SCH (10:36)
[2022-06-21] MEDS: TRIHEXYPHENIDYL 2 MG TAB PO SCH (10:37)
[2022-06-21] MEDS: TIOTROPIUM INHALER/CAPSULE (SPIRIVA) INH SCH (10:53)
[2022-06-21 20:33] VITALS: BP 110/64
== END 2022-06-21 20:40 ==
LOC: M ED 00:48 → EDBD 00:48 → M ED 06-21 20:40
DX: S51.812A Laceration without foreign body of left forearm, initial encounter (principal); T14.91XA Suicide attempt, initial encounter; F25.0 Schizoaffective disorder, bipolar type; F41.9 Anxiety disorder, unspecified; K21.9 Gastro-esophageal reflux disease without esophagitis; E07.9 Disorder of thyroid, unspecified; N40.0 Benign prostatic hyperplasia without lower urinary tract symptoms; F17.200 Nicotine dependence, unspecified, uncomplicated; Z81.8 Family history of other mental and behavioral disorders; Z88.8 Allergy status to other drugs, medicaments and biological substances; Z79.899 Other long term (current) drug therapy; Z79.890 Hormone replacement therapy

== ENCOUNTER → 2022-07-30 | Outpatient (CLI) | payer MEDICARE, MEDICAID ==
[~2022-07-30] MED LIST changes: +ACET-907 PO; +FINA5TAB2 PO; +HYDR-3363 PO; +NICO1DIS12 TD; +PATIENT COMMENT; +VENL150C43 PO; +VENL37.598 PO
[2022-07-30 10:59] LABS: BASO # 0.1 10^3/uL (0.0-0.2); BASO % 0.7 % (0.0-1.0); EOS # 0.2 10^3/uL (0.0-0.5); EOS % 1.9 % (0.0-3.0); HEMATOCRIT 41.1 % (42.0-52.0); HEMOGLOBIN 13.8 g/dl (13.5-17.5); LYMPH # 2.3 10^3/uL (1.5-5.0); LYMPH % 26.4 % (24.0-44.0); MEAN CORPUSCULAR HEMOGLOBIN 32.8 pg (27.0-33.0); MEAN CORPUSCULAR HGB CONC 33.6 g/dl (32.0-36.5); MEAN CORPUSCULAR VOLUME 97.6 fl (80.0-96.0); MONO # 1.1 10^3/uL (0.0-0.8); MONO % 12.4 % (2.0-8.0); NEUTROPHILS # 5.1 10^3/uL (1.5-8.5); NEUTROPHILS % 58.1 % (36.0-66.0); PLATELET COUNT, AUTOMATED 185 10^3/uL (150-450); RED BLOOD COUNT 4.21 10^6/uL (4.30-6.10); WHITE BLOOD COUNT 8.8 10^3/uL (4.0-10.0)
[2022-07-30 11:35] LABS: HEMOGLOBIN A1c 5.4 %
[2022-07-30 11:45] LABS: ALBUMIN 3.1 GM/DL (3.2-5.2); ALT/SGPT 21 U/L (12-78); BILIRUBIN,TOTAL 0.4 MG/DL (0.2-1.0); BLOOD UREA NITROGEN 17 MG/DL (7-18); CALCIUM LEVEL 9.2 MG/DL (8.8-10.2); CARBON DIOXIDE LEVEL 30 MEQ/L (21-32); CHLORIDE LEVEL 107 MEQ/L (98-107); CHOLESTEROL LEVEL 166 MG/DL (<200); CHOLESTEROL RISK RATIO 2.813 (<5); GLOMERULAR FILTRATION RATE > 60.0 (>49); GLUCOSE, FASTING 82 MG/DL (70-100); HDL CHOLESTEROL 59 MG/DL (>40); LDL CHOLESTEROL 89 MG/DL (<100); NON-HDL-C 107 MG/DL; POTASSIUM SERUM 4.7 MEQ/L (3.5-5.1); SODIUM LEVEL 138 MEQ/L (136-145); TOTAL PROTEIN 6.5 GM/DL (6.4-8.2); TRIGLYCERIDES LEVEL 92 MG/DL (<150); VALPROIC ACID (DEPAKOTE) 71.2 UG/ML (50.0-100.0)
[2022-07-30 12:13] LABS: PROLACTIN 11.7 NG/ML (2.1-17.7); TOTAL 25(OH) VITAMIN D 36.8 NG/ML (30.0-100.0); VITAMIN B12 LEVEL 611 PG/ML (247-911)
== END ==
LOC: M LAB 09:48
PROVIDERS: ATTEND Nurse Practitioner Psychiatric/Mental Health
DX: F25.0 Schizoaffective disorder, bipolar type (principal)

== ENCOUNTER → 2022-08-20 | Outpatient (CLI) | payer MEDICARE, MEDICAID ==
[~2022-08-20] MED LIST changes: +CLOZ200T4 PO
[2022-08-20 11:32] LABS: BASO # 0.1 10^3/uL (0.0-0.2); BASO % 0.6 % (0.0-1.0); EOS # 0.1 10^3/uL (0.0-0.5); HEMATOCRIT 40.6 % (42.0-52.0); HEMOGLOBIN 13.3 g/dl (13.5-17.5); LYMPH # 2.2 10^3/uL (1.5-5.0); LYMPH % 24.7 % (24.0-44.0); MEAN CORPUSCULAR HEMOGLOBIN 32.1 pg (27.0-33.0); MEAN CORPUSCULAR HGB CONC 32.8 g/dl (32.0-36.5); MEAN CORPUSCULAR VOLUME 98.1 fl (80.0-96.0); MONO % 11.3 % (2.0-8.0); NEUTROPHILS # 5.5 10^3/uL (1.5-8.5); PLATELET COUNT, AUTOMATED 158 10^3/uL (150-450); RED BLOOD COUNT 4.14 10^6/uL (4.30-6.10); WHITE BLOOD COUNT 8.9 10^3/uL (4.0-10.0)
== END ==
LOC: M LAB 11:06
PROVIDERS: ATTEND Nurse Practitioner Psychiatric/Mental Health
DX: F25.0 Schizoaffective disorder, bipolar type (principal)

== ENCOUNTER 2022-09-21 20:29 | Emergency (ER) | payer MEDICARE, MEDICAID ==
[~2022-09-21] VITALS: Ht 177.8 cm; Wt 75.0 kg
[~2022-09-21 20:29] MED LIST changes: -CLOZ50TA PO
[2022-09-21 21:41] LABS: RSV AMPLIFICATION NEGATIVE (NEGATIVE)
[2022-09-21 21:56] LABS: ALT/SGPT 32 U/L (12-78); BLOOD UREA NITROGEN 17 MG/DL (7-18); CALCIUM LEVEL 8.5 MG/DL (8.8-10.2); CARBON DIOXIDE LEVEL 22 MEQ/L (21-32); CHLORIDE LEVEL 109 MEQ/L (98-107); CREATININE FOR GFR 1.17 MG/DL (0.70-1.30); GLOMERULAR FILTRATION RATE > 60.0 (>49); GLUCOSE, FASTING 101 MG/DL (70-100); SODIUM LEVEL 139 MEQ/L (136-145)
[2022-09-21 21:57] LABS: ACETAMINOPHEN LEVEL < 2.0 UG/ML (10.0-30.0); ALBUMIN 3.2 GM/DL (3.2-5.2); BILIRUBIN,DIRECT < 0.1 MG/DL (0.0-0.2); BILIRUBIN,TOTAL 0.3 MG/DL (0.2-1.0); ETHYL ALCOHOL (ETHANOL) < 0.003 % (0.000-0.010); SALICYLATE LEVEL < 1.7 MG/DL (5.0-30.0); TOTAL PROTEIN 6.3 GM/DL (6.4-8.2); VALPROIC ACID (DEPAKOTE) < 3.0 UG/ML (50.0-100.0)
[2022-09-21 23:07] LABS: HEMATOCRIT 39.8 % (42.0-52.0); HEMOGLOBIN 13.3 g/dl (13.5-17.5); MEAN CORPUSCULAR HEMOGLOBIN 31.6 pg (27.0-33.0); MEAN CORPUSCULAR HGB CONC 33.4 g/dl (32.0-36.5); MEAN CORPUSCULAR VOLUME 94.5 fl (80.0-96.0); PLATELET COUNT, AUTOMATED 190 10^3/uL (150-450); RED BLOOD COUNT 4.21 10^6/uL (4.30-6.10); WHITE BLOOD COUNT 8.2 10^3/uL (4.0-10.0)
[2022-09-21 23:11] LABS: APPEARANCE, URINE MANUAL CLEAR (CLEAR); COLOR, URINE MANUAL YELLOW (YELLOW)
[2022-09-21 23:12] LABS: BILIRUBIN, URINE MANUAL NEGATIVE (NEGATIVE); BLOOD URINE MANUAL NEGATIVE (NEGATIVE); GLUCOSE, URINE (UA) MANUAL NEGATIVE (NEGATIVE); KETONE, URINE MANUAL NEGATIVE (NEGATIVE); LEUKOCYTE ESTERASE, URINE MAN NEGATIVE (NEGATIVE); NITRITE, URINE MANUAL NEGATIVE (NEGATIVE); PROTEIN, URINE MANUAL NEGATIVE (NEGATIVE); SPECIFIC GRAVITY,URINE MANUAL 1.015 (1.002-1.035); UROBILINOGEN, URINE MANUAL NORMAL (NORMAL)
[2022-09-21 23:58] LABS: AMPHETAMINES LEVEL URINE NEGATIVE (NEGATIVE); BARBITURATES URINE NEGATIVE (NEGATIVE); BENZODIAZEPINES URINE NEGATIVE (NEGATIVE); CANNABINOIDS URINE NEGATIVE (NEGATIVE); COCAINE METABOLITE URINE NEGATIVE (NEGATIVE); METHADONE URINE NEGATIVE (NEGATIVE); OPIATES URINE NEGATIVE (NEGATIVE); PHENCYCLIDINE URINE NEGATIVE (NEGATIVE)
[2022-09-22] MEDS ORDERED: CLOZ50TA PO (08:31)
[2022-09-22] MEDS ORDERED: HOME MED LIST COMPLETE! XX SCH (08:35)
[2022-09-22] MEDS ORDERED: FINASTERIDE 5MG TAB PO SCH (09:00)
[2022-09-22] MEDS ORDERED: TAMSULOSIN 0.4 MG CAP PO SCH (09:00)
[2022-09-22] MEDS ORDERED: TRIHEXYPHENIDYL 2 MG TAB PO SCH (09:00)
[2022-09-22] MEDS ORDERED: AMANTADINE 100MG TABLET PO SCH (09:00)
[2022-09-22] MEDS ORDERED: MULTIVITAMINS/MINERALS THERAP 1 TAB PO SCH (09:00)
[2022-09-22] MEDS ORDERED: VENLAFAXINE **XR** 75MG CAPSULE PO SCH (09:00)
[2022-09-22] MEDS ORDERED: PANTOPRAZOLE 40MG TAB (PROTONIX) PO SCH (09:00)
[2022-09-22] MEDS ORDERED: lisinopriL 5 MG TAB PO SCH (09:00)
[2022-09-22 09:04] VITALS: BP 122/87
[2022-09-22 09:11] VITALS: BP 126/84
== END 2022-09-22 09:16 ==
LOC: M ED 20:29
DX: R45.851 Suicidal ideations (principal); R44.3 Hallucinations, unspecified; F31.9 Bipolar disorder, unspecified; I10 Essential (primary) hypertension; E07.9 Disorder of thyroid, unspecified; J44.9 Chronic obstructive pulmonary disease, unspecified; N40.0 Benign prostatic hyperplasia without lower urinary tract symptoms; Z88.8 Allergy status to other drugs, medicaments and biological substances; Z79.899 Other long term (current) drug therapy; Z79.890 Hormone replacement therapy

== ENCOUNTER → 2022-09-21 | Outpatient (CLI) | payer MEDICARE, MEDICAID ==
[~2022-09-21] MED LIST changes: +CLOZ50TA PO
[2022-09-21 11:11] LABS: BASO # 0.1 10^3/uL (0.0-0.2); BASO % 0.8 % (0.0-1.0); EOS % 0.5 % (0.0-3.0); HEMATOCRIT 41.5 % (42.0-52.0); HEMOGLOBIN 13.7 g/dl (13.5-17.5); LYMPH # 2.3 10^3/uL (1.5-5.0); MEAN CORPUSCULAR HEMOGLOBIN 31.9 pg (27.0-33.0); MEAN CORPUSCULAR VOLUME 96.7 fl (80.0-96.0); MONO % 12.5 % (2.0-8.0); NEUTROPHILS # 4.5 10^3/uL (1.5-8.5); NEUTROPHILS % 56.8 % (36.0-66.0); PLATELET COUNT, AUTOMATED 179 10^3/uL (150-450); RED BLOOD COUNT 4.29 10^6/uL (4.30-6.10); WHITE BLOOD COUNT 7.9 10^3/uL (4.0-10.0)
== END ==
LOC: M LAB 10:16
PROVIDERS: ATTEND Nurse Practitioner Psychiatric/Mental Health
DX: F25.0 Schizoaffective disorder, bipolar type (principal)

== ENCOUNTER → 2022-10-15 | Outpatient (CLI) | payer MEDICARE, MEDICAID ==
[~2022-10-15] MED LIST changes: +CLOZ50TA PO
[2022-10-15 17:07] LABS: BASO % 0.3 % (0.0-1.0); EOS % 0.5 % (0.0-3.0); HEMATOCRIT 39.2 % (42.0-52.0); LYMPH # 2.3 10^3/uL (1.5-5.0); LYMPH % 26.2 % (24.0-44.0); MEAN CORPUSCULAR HEMOGLOBIN 31.9 pg (27.0-33.0); MEAN CORPUSCULAR HGB CONC 33.2 g/dl (32.0-36.5); MEAN CORPUSCULAR VOLUME 96.3 fl (80.0-96.0); MONO # 1.1 10^3/uL (0.0-0.8); NEUTROPHILS # 5.4 10^3/uL (1.5-8.5); NEUTROPHILS % 60.7 % (36.0-66.0); PLATELET COUNT, AUTOMATED 195 10^3/uL (150-450); RED BLOOD COUNT 4.07 10^6/uL (4.30-6.10); WHITE BLOOD COUNT 8.8 10^3/uL (4.0-10.0)
== END ==
LOC: M LAB 15:29
PROVIDERS: ATTEND Nurse Practitioner Psychiatric/Mental Health
DX: F25.0 Schizoaffective disorder, bipolar type (principal)

== ENCOUNTER → 2022-11-13 | Outpatient (REF) | payer MEDICARE, MEDICAID ==
[2022-11-13 12:38] LABS: ALBUMIN 3.3 G/DL (3.2-5.2); ALKALINE PHOSPHATASE 87 U/L (46-116); ALT/SGPT 21 U/L (7.0-40); AST/SGOT 18 U/L (<34); BILIRUBIN,TOTAL 0.4 MG/DL (0.3-1.2); BLOOD UREA NITROGEN 16 MG/DL (9-23); CALCIUM LEVEL 8.9 MG/DL (8.3-10.6); CARBON DIOXIDE LEVEL 29 MMOL/L (20-31); CHLORIDE LEVEL 109 MMOL/L (98-107); CHOLESTEROL LEVEL 160 MG/DL (<200); CHOLESTEROL RISK RATIO 2.95 (<5); CREATININE FOR GFR 1.19 MG/DL (0.70-1.30); GLOMERULAR FILTRATION RATE > 60.0 (>49); GLUCOSE, FASTING 84 MG/DL (74-106); HDL CHOLESTEROL 54.2 MG/DL (>40); LDL CHOLESTEROL 87.4 MG/DL (<100); NON-HDL-C 106 MG/DL; POTASSIUM SERUM 4.7 MMOL/L (3.5-5.1); SODIUM LEVEL 143 MMOL/L (136-145); TOTAL PROTEIN 6.2 G/DL (5.7-8.2); TRIGLYCERIDES LEVEL 92 MG/DL (<150)
[2022-11-13 12:40] LABS: FREE T4 1.42 NG/DL (0.89-1.76); THYROID STIMULATING HORMONE 3.442 uIU/ML (0.55-4.78)
== END ==
LOC: M LAB REF 11:21
PROVIDERS: ATTEND Nurse Practitioner Family
DX: Z13.228 Encounter for screening for other metabolic disorders (principal); Z79.899 Other long term (current) drug therapy

== ENCOUNTER → 2022-11-23 | Outpatient (CLI) | payer MEDICARE, MEDICAID ==
[2022-11-23 15:16] LABS: BASO # 0.1 10^3/uL (0.0-0.2); BASO % 0.7 % (0.0-1.0); EOS % 0.5 % (0.0-3.0); HEMATOCRIT 40.5 % (42.0-52.0); HEMOGLOBIN 13.3 g/dl (13.5-17.5); LYMPH # 2.4 10^3/uL (1.5-5.0); LYMPH % 29.6 % (24.0-44.0); MEAN CORPUSCULAR HEMOGLOBIN 31.4 pg (27.0-33.0); MEAN CORPUSCULAR HGB CONC 32.8 g/dl (32.0-36.5); MEAN CORPUSCULAR VOLUME 95.5 fl (80.0-96.0); MONO % 11.7 % (2.0-8.0); NEUTROPHILS # 4.6 10^3/uL (1.5-8.5); PLATELET COUNT, AUTOMATED 191 10^3/uL (150-450); RED BLOOD COUNT 4.24 10^6/uL (4.30-6.10); WHITE BLOOD COUNT 8.1 10^3/uL (4.0-10.0)
== END ==
LOC: M LAB 14:34
PROVIDERS: ATTEND Nurse Practitioner Psychiatric/Mental Health
DX: F31.9 Bipolar disorder, unspecified (principal)

== ENCOUNTER → 2022-12-21 | Outpatient (CLI) | payer MEDICARE, MEDICAID ==
[2022-12-21 15:00] LABS: BASO # 0.1 10^3/uL (0.0-0.2); BASO % 0.7 % (0.0-1.0); EOS # 0.1 10^3/uL (0.0-0.5); EOS % 0.6 % (0.0-3.0); HEMOGLOBIN 13.1 g/dl (13.5-17.5); LYMPH # 3.3 10^3/uL (1.5-5.0); LYMPH % 37.5 % (24.0-44.0); MEAN CORPUSCULAR HEMOGLOBIN 31.6 pg (27.0-33.0); MEAN CORPUSCULAR HGB CONC 32.8 g/dl (32.0-36.5); MEAN CORPUSCULAR VOLUME 96.4 fl (80.0-96.0); NEUTROPHILS # 4.3 10^3/uL (1.5-8.5); NEUTROPHILS % 48.7 % (36.0-66.0); PLATELET COUNT, AUTOMATED 176 10^3/uL (150-450); RED BLOOD COUNT 4.15 10^6/uL (4.30-6.10); WHITE BLOOD COUNT 8.7 10^3/uL (4.0-10.0)
== END ==
LOC: M LAB 13:51
PROVIDERS: ATTEND Nurse Practitioner Psychiatric/Mental Health
DX: F25.0 Schizoaffective disorder, bipolar type (principal)

== ENCOUNTER → 2023-01-18 | Outpatient (CLI) | payer MEDICARE, MEDICAID ==
[~2023-01-18] MED LIST changes: -CLOZ50TA PO; +CLOZ50TA4 PO
[2023-01-18 13:57] LABS: BASO # 0.1 10^3/uL (0.0-0.2); BASO % 0.6 % (0.0-1.0); EOS # 0.1 10^3/uL (0.0-0.5); EOS % 0.7 % (0.0-3.0); HEMATOCRIT 42.4 % (42.0-52.0); HEMOGLOBIN 14.1 g/dl (13.5-17.5); LYMPH # 2.8 10^3/uL (1.5-5.0); LYMPH % 30.2 % (24.0-44.0); MEAN CORPUSCULAR HEMOGLOBIN 31.9 pg (27.0-33.0); MEAN CORPUSCULAR HGB CONC 33.3 g/dl (32.0-36.5); MEAN CORPUSCULAR VOLUME 95.9 fl (80.0-96.0); MONO # 1.2 10^3/uL (0.0-0.8); MONO % 12.4 % (2.0-8.0); NEUTROPHILS # 5.2 10^3/uL (1.5-8.5); NEUTROPHILS % 55.7 % (36.0-66.0); PLATELET COUNT, AUTOMATED 181 10^3/uL (150-450); RED BLOOD COUNT 4.42 10^6/uL (4.30-6.10); WHITE BLOOD COUNT 9.4 10^3/uL (4.0-10.0)
== END ==
LOC: M LAB 13:33
PROVIDERS: ATTEND Nurse Practitioner Psychiatric/Mental Health
DX: F25.0 Schizoaffective disorder, bipolar type (principal)

== ENCOUNTER → 2023-02-16 | Outpatient (CLI) | payer MEDICARE, MEDICAID ==
[2023-02-16 11:33] LABS: BASO # 0.1 10^3/uL (0.0-0.2); BASO % 0.8 % (0.0-1.0); EOS # 0.1 10^3/uL (0.0-0.5); EOS % 0.9 % (0.0-3.0); HEMATOCRIT 41.3 % (42.0-52.0); HEMOGLOBIN 13.6 g/dl (13.5-17.5); LYMPH # 2.7 10^3/uL (1.5-5.0); LYMPH % 34.7 % (24.0-44.0); MEAN CORPUSCULAR HEMOGLOBIN 31.6 pg (27.0-33.0); MEAN CORPUSCULAR HGB CONC 32.9 g/dl (32.0-36.5); MONO # 1.1 10^3/uL (0.0-0.8); MONO % 14.7 % (2.0-8.0); NEUTROPHILS # 3.7 10^3/uL (1.5-8.5); NEUTROPHILS % 48.5 % (36.0-66.0); PLATELET COUNT, AUTOMATED 204 10^3/uL (150-450); WHITE BLOOD COUNT 7.7 10^3/uL (4.0-10.0)
== END ==
LOC: M LAB 09:22
PROVIDERS: ATTEND Nurse Practitioner Psychiatric/Mental Health
DX: F25.0 Schizoaffective disorder, bipolar type (principal)

== ENCOUNTER → 2023-03-15 | Outpatient (REF) | payer MEDICARE, MEDICAID | LOC: M LAB REF 12:32 | PROVIDERS: ATTEND Nurse Practitioner Family | DX: E03.9 Hypothyroidism, unspecified (principal); F17.200 Nicotine dependence, unspecified, uncomplicated; R73.03 Prediabetes ==

== ENCOUNTER → 2023-03-19 | Outpatient (CLI) | payer MEDICARE, MEDICAID ==
[~2023-03-19] MED LIST changes: +ABIL400I; +ARIP10TA32; +CLOZ100T5; +VENL37.598
== END ==
LOC: M LAB 09:36
PROVIDERS: ATTEND Urology
DX: N40.0 Benign prostatic hyperplasia without lower urinary tract symptoms (principal); F25.0 Schizoaffective disorder, bipolar type; Z12.5 Encounter for screening for malignant neoplasm of prostate
CPT/HCPCS: 36415; 85025; G0103

== ENCOUNTER → 2023-03-19 | Outpatient (CLI) | payer MEDICARE, MEDICAID ==
[~2023-03-19] MED LIST changes: -ABIL400I; -ARIP10TA32; -CLOZ100T5; -VENL37.598
[2023-03-19 11:31] LABS: BASO % 0.4 % (0.0-1.0); EOS # 0.1 10^3/uL (0.0-0.5); EOS % 1.2 % (0.0-3.0); HEMOGLOBIN 13.1 g/dl (13.5-17.5); LYMPH # 2.3 10^3/uL (1.5-5.0); LYMPH % 25.8 % (24.0-44.0); MEAN CORPUSCULAR HGB CONC 32.8 g/dl (32.0-36.5); MEAN CORPUSCULAR VOLUME 97.6 fl (80.0-96.0); MONO # 1.2 10^3/uL (0.0-0.8); MONO % 12.7 % (2.0-8.0); NEUTROPHILS # 5.4 10^3/uL (1.5-8.5); NEUTROPHILS % 59.7 % (36.0-66.0); PLATELET COUNT, AUTOMATED 168 10^3/uL (150-450); WHITE BLOOD COUNT 9.1 10^3/uL (4.0-10.0)
== END ==
LOC: M LAB 09:29
PROVIDERS: ATTEND Nurse Practitioner Psychiatric/Mental Health
DX: F25.0 Schizoaffective disorder, bipolar type (principal)

== ENCOUNTER 2023-03-24 10:27 | Emergency (ER) | payer MEDICARE, MEDICAID ==
[~2023-03-24] VITALS: Ht 180.3 cm; Wt 74.1 kg
[2023-03-24 12:20] LABS: HEMATOCRIT 41.1 % (42.0-52.0); HEMOGLOBIN 13.4 g/dl (13.5-17.5); MEAN CORPUSCULAR HEMOGLOBIN 31.5 pg (27.0-33.0); MEAN CORPUSCULAR HGB CONC 32.6 g/dl (32.0-36.5); MEAN CORPUSCULAR VOLUME 96.7 fl (80.0-96.0); PLATELET COUNT, AUTOMATED 187 10^3/uL (150-450); RED BLOOD COUNT 4.25 10^6/uL (4.30-6.10); WHITE BLOOD COUNT 8.7 10^3/uL (4.0-10.0)
[2023-03-24 12:40] LABS: ETHYL ALCOHOL (ETHANOL) 0.005 % (0.000-0.010)
[2023-03-24 12:41] LABS: ACETAMINOPHEN LEVEL < 2.0 UG/ML (10.0-20.0)
[2023-03-24 12:42] LABS: ALKALINE PHOSPHATASE 91 U/L (46-116); ALT/SGPT 25 U/L (7.0-40); AST/SGOT 19 U/L (<34); BILIRUBIN,DIRECT 0.1 MG/DL (<0.4); BILIRUBIN,TOTAL 0.3 MG/DL (0.3-1.2); BLOOD UREA NITROGEN 15 MG/DL (9-23); CALCIUM LEVEL 8.9 MG/DL (8.3-10.6); CARBON DIOXIDE LEVEL 28 MMOL/L (20-31); CHLORIDE LEVEL 105 MMOL/L (98-107); CREATININE FOR GFR 1.06 MG/DL (0.70-1.30); GLOMERULAR FILTRATION RATE > 60.0 (>49); GLUCOSE, FASTING 93 MG/DL (74-106); POTASSIUM SERUM 4.8 MMOL/L (3.5-5.1); SALICYLATE LEVEL < 3.0 MG/DL (<30); SODIUM LEVEL 139 MMOL/L (136-145)
[2023-03-24 12:44] LABS: THYROID STIMULATING HORMONE 1.989 uIU/ML (0.55-4.78)
[2023-03-24 14:58] LABS: AMPHETAMINES LEVEL URINE NEGATIVE (NEGATIVE); BARBITURATES URINE NEGATIVE (NEGATIVE); BENZODIAZEPINES URINE NEGATIVE (NEGATIVE); CANNABINOIDS URINE NEGATIVE (NEGATIVE); COCAINE METABOLITE URINE NEGATIVE (NEGATIVE); METHADONE URINE NEGATIVE (NEGATIVE); OPIATES URINE NEGATIVE (NEGATIVE); PHENCYCLIDINE URINE NEGATIVE (NEGATIVE)
[2023-03-24] MEDS ORDERED: VENL37.598 (15:36)
[2023-03-24] MEDS ORDERED: ARIP10TA32 (15:36)
[2023-03-24] MEDS ORDERED: ABIL400I (15:36)
[2023-03-24] MEDS ORDERED: CLOZ100T5 (15:36)
[2023-03-24 15:55] VITALS: BP 111/76
== END 2023-03-24 15:57 | disposition home or self-care (01) ==
LOC: M ED 10:27
DX: R41.3 Other amnesia (principal); F20.9 Schizophrenia, unspecified; J44.9 Chronic obstructive pulmonary disease, unspecified; E07.9 Disorder of thyroid, unspecified; F17.200 Nicotine dependence, unspecified, uncomplicated; Z88.8 Allergy status to other drugs, medicaments and biological substances; Z79.899 Other long term (current) drug therapy; Z79.890 Hormone replacement therapy

== ENCOUNTER 2023-05-20 21:59 | Inpatient (IN) | payer MEDICARE, MEDICAID ==
[~2023-05-20] VITALS: Ht 172.7 cm; Wt 87.0 kg
[~2023-05-20 21:59] MED LIST changes: -ABIL1INJ2 IM; -BISA5TAB15 PO; -D200CAP3 PO; -SENN8.6T58 PO; -SILD25TA PO; -VENL37.52 PO
[2023-05-20] MEDS ORDERED: SILD25TA PO (23:44)
[2023-05-20] MEDS ORDERED: BISA5TAB15 PO (23:44)
[2023-05-20] MEDS ORDERED: SENN8.6T58 PO (23:44)
[2023-05-20] MEDS ORDERED: CLON0.5T2 PO (23:44)
[2023-05-20] MEDS ORDERED: VENL37.52 PO (23:44)
[2023-05-20] MEDS ORDERED: ZYPR10TA PO (23:54)
[2023-05-20] MEDS ORDERED: D200CAP3 PO (23:54)
[2023-05-20] MEDS ORDERED: ABIL1INJ2 IM (23:54)
[2023-05-21] MEDS ORDERED: HOME MED LIST COMPLETE! XX SCH
[2023-05-21 00:03] LABS: HEMATOCRIT 40.5 % (42.0-52.0); HEMOGLOBIN 13.4 g/dl (13.5-17.5); MEAN CORPUSCULAR HEMOGLOBIN 31.9 pg (27.0-33.0); MEAN CORPUSCULAR HGB CONC 33.1 g/dl (32.0-36.5); MEAN CORPUSCULAR VOLUME 96.4 fl (80.0-96.0); PLATELET COUNT, AUTOMATED 164 10^3/uL (150-450); WHITE BLOOD COUNT 7.9 10^3/uL (4.0-10.0)
[2023-05-21 00:10] LABS: ETHYL ALCOHOL (ETHANOL) < 0.003 % (0.000-0.010)
[2023-05-21 00:11] LABS: ACETAMINOPHEN LEVEL < 2.0 UG/ML (10.0-20.0); SALICYLATE LEVEL < 3.0 MG/DL (<30)
[2023-05-21 00:12] LABS: ALBUMIN 3.1 G/DL (3.2-5.2); ALKALINE PHOSPHATASE 88 U/L (46-116); ALT/SGPT 23 U/L (7.0-40); AST/SGOT 19 U/L (<34); BILIRUBIN,DIRECT < 0.1 MG/DL (<0.4); BILIRUBIN,TOTAL 0.2 MG/DL (0.3-1.2); BLOOD UREA NITROGEN 20 MG/DL (9-23); CALCIUM LEVEL 9.2 MG/DL (8.3-10.6); CARBON DIOXIDE LEVEL 27 MMOL/L (20-31); CHLORIDE LEVEL 108 MMOL/L (98-107); CREATININE FOR GFR 1.09 MG/DL (0.70-1.30); GLOMERULAR FILTRATION RATE > 60.0 (>49); GLUCOSE, FASTING 116 MG/DL (74-106); POTASSIUM SERUM 4.1 MMOL/L (3.5-5.1); SODIUM LEVEL 141 MMOL/L (136-145)
[2023-05-21 00:13] LABS: THYROID STIMULATING HORMONE 3.678 uIU/ML (0.55-4.78)
[2023-05-21 00:33] LABS: AMPHETAMINES LEVEL URINE NEGATIVE (NEGATIVE); BARBITURATES URINE NEGATIVE (NEGATIVE); CANNABINOIDS URINE NEGATIVE (NEGATIVE); COCAINE METABOLITE URINE NEGATIVE (NEGATIVE); METHADONE URINE NEGATIVE (NEGATIVE); OPIATES URINE NEGATIVE (NEGATIVE); PHENCYCLIDINE URINE NEGATIVE (NEGATIVE)
[2023-05-21 00:34] LABS: BENZODIAZEPINES URINE NEGATIVE (NEGATIVE)
[2023-05-21] MEDS ORDERED: MOM 30ML SUSPENSION UDC PO PRN (03:40)
[2023-05-21] MEDS ORDERED: MAALOX 30 ML SUSP *UDC PO PRN (03:40)
[2023-05-21] MEDS ORDERED: IBUPROFEN 400MG TAB PO PRN (03:40)
[2023-05-21] MEDS ORDERED: traZODone 50 MG TAB PO PRN (03:40)
[2023-05-21] MEDS ORDERED: ACETAMINOPHEN TAB 650MG DOSE (2X325MG) PO PRN (03:40)
[2023-05-21 04:17] VITALS: BP 99/65; TEMP 96.2; O2SAT 96
[2023-05-21] MEDS: OLANZapine ORAL DISINTEGRATING TAB 5MG PO PRN (10:06)
[2023-05-21] MEDS: diphenhydrAMINE 25MG CAP PO PRN (10:06)
[2023-05-21] MEDS ORDERED: BISACODYL 5MG TAB PO PRN (11:50)
[2023-05-21] MEDS ORDERED: SENNA 8.6 MG TAB (SENOKOT) PO PRN (11:50)
[2023-05-21 13:09] LABS: BASO # 0.1 10^3/uL (0.0-0.2); BASO % 0.6 % (0.0-1.0); EOS # 0.1 10^3/uL (0.0-0.5); EOS % 1.3 % (0.0-3.0); HEMATOCRIT 44.1 % (42.0-52.0); HEMOGLOBIN 14.4 g/dl (13.5-17.5); LYMPH # 2.6 10^3/uL (1.5-5.0); LYMPH % 33.5 % (24.0-44.0); MEAN CORPUSCULAR HEMOGLOBIN 31.9 pg (27.0-33.0); MEAN CORPUSCULAR HGB CONC 32.7 g/dl (32.0-36.5); MEAN CORPUSCULAR VOLUME 97.6 fl (80.0-96.0); MONO % 12.5 % (2.0-8.0); NEUTROPHILS % 51.7 % (36.0-66.0); PLATELET COUNT, AUTOMATED 166 10^3/uL (150-450); RED BLOOD COUNT 4.52 10^6/uL (4.30-6.10); WHITE BLOOD COUNT 7.8 10^3/uL (4.0-10.0)
[2023-05-21] MEDS: VITAMIN D 1,000 INTERNATIONAL UNITS TABLET PO SCH (13:58)
[2023-05-21] MEDS: VENLAFAXINE **XR** 37.5 MG CAPSULE PO SCH (13:59)
[2023-05-21] MEDS: VENLAFAXINE **XR** 75MG CAPSULE PO SCH (14:00)
[2023-05-21] MEDS: TRIHEXYPHENIDYL 2 MG TAB PO SCH (14:01)
[2023-05-21] MEDS: LEVOTHYROXINE 100MCG TABLET (0.1MG) PO SCH (14:02)
[2023-05-21] MEDS: TIOTROPIUM INHALER/CAPSULE (SPIRIVA) INH SCH (14:03)
[2023-05-21] MEDS: DIVALPROEX 500MG *ER* TAB PO SCH ×2 (14:04→21:41)
[2023-05-21] MEDS: TAMSULOSIN 0.4 MG CAP PO SCH (14:05)
[2023-05-21] MEDS: PANTOPRAZOLE 40MG TAB (PROTONIX) PO SCH (14:07)
[2023-05-21] MEDS: FINASTERIDE 5MG TAB PO SCH (14:07)
[2023-05-21] MEDS: MULTIVITAMINS/MINERALS THERAP 1 TAB PO SCH (14:07)
[2023-05-21] MEDS: AMANTADINE 100MG TABLET PO SCH ×2 (14:18→21:41)
[2023-05-21 14:39] VITALS: BP 102/74
[2023-05-21] MEDS: clonazePAM 0.5 MG TAB PO PRN (16:54)
[2023-05-21] MEDS: lisinopriL 5 MG TAB PO SCH (16:55)
[2023-05-21 17:28] VITALS: BP 122/79; TEMP 97; O2SAT 99
[2023-05-21] MEDS: OLANZapine 10 MG TAB PO SCH (21:40)
[2023-05-21] MEDS: cloNIDine 0.1MG TABLET PO SCH (21:44)
[2023-05-22] MEDS: LEVOTHYROXINE 100MCG TABLET (0.1MG) PO SCH (06:01)
[2023-05-22 06:49] VITALS: BP 126/84; TEMP 96.9; O2SAT 97
[2023-05-22] MEDS: TIOTROPIUM INHALER/CAPSULE (SPIRIVA) INH SCH (08:16)
[2023-05-22] MEDS: VENLAFAXINE **XR** 37.5 MG CAPSULE PO SCH (08:16)
[2023-05-22] MEDS: PANTOPRAZOLE 40MG TAB (PROTONIX) PO SCH (08:16)
[2023-05-22] MEDS: DIVALPROEX 500MG *ER* TAB PO SCH ×2 (08:16→20:51)
[2023-05-22] MEDS: VENLAFAXINE **XR** 75MG CAPSULE PO SCH (08:16)
[2023-05-22] MEDS: MULTIVITAMINS/MINERALS THERAP 1 TAB PO SCH (08:16)
[2023-05-22] MEDS: TAMSULOSIN 0.4 MG CAP PO SCH (08:19)
[2023-05-22] MEDS: VITAMIN D 1,000 INTERNATIONAL UNITS TABLET PO SCH (08:19)
[2023-05-22] MEDS: TRIHEXYPHENIDYL 2 MG TAB PO SCH (08:19)
[2023-05-22] MEDS: AMANTADINE 100MG TABLET PO SCH ×2 (08:19→20:51)
[2023-05-22] MEDS: FINASTERIDE 5MG TAB PO SCH (08:19)
[2023-05-22] MEDS: lisinopriL 5 MG TAB PO SCH (08:20)
[2023-05-22 16:35] VITALS: BP 120/78; TEMP 97.1; O2SAT 97
[2023-05-22] MEDS: OLANZapine 10 MG TAB PO SCH (20:51)
[2023-05-22] MEDS: clonazePAM 0.5 MG TAB PO PRN (20:52)
[2023-05-22] MEDS: cloNIDine 0.1MG TABLET PO SCH (20:53)
[2023-05-23] MEDS: LEVOTHYROXINE 100MCG TABLET (0.1MG) PO SCH (06:02)
[2023-05-23 06:51] VITALS: BP 97/68; TEMP 96.7; O2SAT 97
[2023-05-23] MEDS: clonazePAM 0.5 MG TAB PO PRN ×2 (08:39→21:37)
[2023-05-23] MEDS: TIOTROPIUM INHALER/CAPSULE (SPIRIVA) INH SCH (08:39)
[2023-05-23] MEDS: MULTIVITAMINS/MINERALS THERAP 1 TAB PO SCH (08:39)
[2023-05-23] MEDS: TRIHEXYPHENIDYL 2 MG TAB PO SCH (08:40)
[2023-05-23] MEDS: TAMSULOSIN 0.4 MG CAP PO SCH (08:40)
[2023-05-23] MEDS: DIVALPROEX 500MG *ER* TAB PO SCH ×2 (08:40→21:37)
[2023-05-23] MEDS: PANTOPRAZOLE 40MG TAB (PROTONIX) PO SCH (08:40)
[2023-05-23] MEDS: VENLAFAXINE **XR** 75MG CAPSULE PO SCH (08:40)
[2023-05-23] MEDS: FINASTERIDE 5MG TAB PO SCH (08:40)
[2023-05-23] MEDS: VENLAFAXINE **XR** 37.5 MG CAPSULE PO SCH (08:40)
[2023-05-23] MEDS: VITAMIN D 1,000 INTERNATIONAL UNITS TABLET PO SCH (08:40)
[2023-05-23] MEDS: AMANTADINE 100MG TABLET PO SCH ×2 (08:41→21:36)
[2023-05-23] MEDS: lisinopriL 5 MG TAB PO SCH (08:42)
[2023-05-23] MEDS: OLANZapine ORAL DISINTEGRATING TAB 5MG PO PRN ×3 (12:45→23:03)
[2023-05-23] MEDS: NICOTINE POLACRILEX 2 MG GUM PO PRN ×2 (14:48→21:36)
[2023-05-23 18:17] VITALS: BP 127/77; TEMP 97.1; O2SAT 99
[2023-05-23] MEDS: OLANZapine 10 MG TAB PO SCH (21:37)
[2023-05-23] MEDS: cloNIDine 0.1MG TABLET PO SCH (21:39)
[2023-05-23] MEDS: diphenhydrAMINE 25MG CAP PO PRN (23:03)
[2023-05-24] MEDS: LEVOTHYROXINE 100MCG TABLET (0.1MG) PO SCH (05:35)
[2023-05-24 06:58] VITALS: BP 114/72; TEMP 97.3; O2SAT 98
[2023-05-24] MEDS: TAMSULOSIN 0.4 MG CAP PO SCH (08:13)
[2023-05-24] MEDS: DIVALPROEX 500MG *ER* TAB PO SCH ×2 (08:13→21:15)
[2023-05-24] MEDS: VENLAFAXINE **XR** 37.5 MG CAPSULE PO SCH (08:13)
[2023-05-24] MEDS: VITAMIN D 1,000 INTERNATIONAL UNITS TABLET PO SCH (08:14)
[2023-05-24] MEDS: MULTIVITAMINS/MINERALS THERAP 1 TAB PO SCH (08:14)
[2023-05-24] MEDS: VENLAFAXINE **XR** 75MG CAPSULE PO SCH (08:14)
[2023-05-24] MEDS: FINASTERIDE 5MG TAB PO SCH (08:15)
[2023-05-24] MEDS: PANTOPRAZOLE 40MG TAB (PROTONIX) PO SCH (08:15)
[2023-05-24] MEDS: AMANTADINE 100MG TABLET PO SCH ×2 (08:15→21:15)
[2023-05-24] MEDS: lisinopriL 5 MG TAB PO SCH (08:15)
[2023-05-24] MEDS: TRIHEXYPHENIDYL 2 MG TAB PO SCH (08:16)
[2023-05-24] MEDS: TIOTROPIUM INHALER/CAPSULE (SPIRIVA) INH SCH (08:16)
[2023-05-24] MEDS: NICOTINE POLACRILEX 2 MG GUM PO PRN ×3 (08:18→21:16)
[2023-05-24] MEDS: clonazePAM 0.5 MG TAB PO PRN ×2 (09:37→21:48)
[2023-05-24 18:34] VITALS: BP 150/71; TEMP 98; O2SAT 100
[2023-05-24] MEDS: OLANZapine 10 MG TAB PO SCH (21:15)
[2023-05-24] MEDS: cloNIDine 0.1MG TABLET PO SCH (21:16)
[2023-05-25] MEDS: LEVOTHYROXINE 100MCG TABLET (0.1MG) PO SCH (05:31)
[2023-05-25 06:22] VITALS: BP 132/74; TEMP 97.3; O2SAT 96
[2023-05-25 06:25] VITALS: BP_SYST 89; TEMP 97.9; O2SAT 100
[2023-05-25] MEDS: TIOTROPIUM INHALER/CAPSULE (SPIRIVA) INH SCH (08:44)
[2023-05-25 08:50] VITALS: BP 102/56
[2023-05-25] MEDS: VENLAFAXINE **XR** 37.5 MG CAPSULE PO SCH (08:51)
[2023-05-25] MEDS: VENLAFAXINE **XR** 75MG CAPSULE PO SCH (08:51)
[2023-05-25] MEDS: lisinopriL 5 MG TAB PO SCH (08:51)
[2023-05-25] MEDS: TRIHEXYPHENIDYL 2 MG TAB PO SCH (08:51)
[2023-05-25] MEDS: MULTIVITAMINS/MINERALS THERAP 1 TAB PO SCH (08:51)
[2023-05-25] MEDS: FINASTERIDE 5MG TAB PO SCH (08:51)
[2023-05-25] MEDS: AMANTADINE 100MG TABLET PO SCH ×2 (08:51→21:13)
[2023-05-25] MEDS: TAMSULOSIN 0.4 MG CAP PO SCH (08:52)
[2023-05-25] MEDS: DIVALPROEX 500MG *ER* TAB PO SCH ×2 (08:52→21:13)
[2023-05-25] MEDS: PANTOPRAZOLE 40MG TAB (PROTONIX) PO SCH (08:52)
[2023-05-25] MEDS: VITAMIN D 1,000 INTERNATIONAL UNITS TABLET PO SCH (08:52)
[2023-05-25] MEDS: NICOTINE POLACRILEX 2 MG GUM PO PRN ×3 (08:54→21:17)
[2023-05-25 13:11] LABS: CLOZAPINE 1 255 ng/mL (350-600); CLOZAPINE 2 109 ng/mL (Not Estab.); CLOZAPINE 3 364 ng/mL (.)
[2023-05-25] MEDS: OLANZapine ORAL DISINTEGRATING TAB 5MG PO PRN (16:31)
[2023-05-25 18:56] VITALS: BP 104/54; TEMP 97.3
[2023-05-25] MEDS: OLANZapine 10 MG TAB PO SCH (21:13)
[2023-05-25] MEDS: clonazePAM 0.5 MG TAB PO PRN (21:13)
[2023-05-25] MEDS: cloNIDine 0.1MG TABLET PO SCH (21:15)
[2023-05-26] MEDS: LEVOTHYROXINE 100MCG TABLET (0.1MG) PO SCH (05:47)
[2023-05-26 06:40] VITALS: BP 108/64; TEMP 97.8; O2SAT 96
[2023-05-26 08:57] VITALS: BP 128/72
[2023-05-26] MEDS: PANTOPRAZOLE 40MG TAB (PROTONIX) PO SCH (08:58)
[2023-05-26] MEDS: TIOTROPIUM INHALER/CAPSULE (SPIRIVA) INH SCH (08:58)
[2023-05-26] MEDS: TAMSULOSIN 0.4 MG CAP PO SCH (08:58)
[2023-05-26] MEDS: DIVALPROEX 500MG *ER* TAB PO SCH ×2 (08:58→22:12)
[2023-05-26] MEDS: VENLAFAXINE **XR** 75MG CAPSULE PO SCH (08:59)
[2023-05-26] MEDS: VENLAFAXINE **XR** 37.5 MG CAPSULE PO SCH (08:59)
[2023-05-26] MEDS: VITAMIN D 1,000 INTERNATIONAL UNITS TABLET PO SCH (09:00)
[2023-05-26] MEDS: TRIHEXYPHENIDYL 2 MG TAB PO SCH (09:01)
[2023-05-26] MEDS: AMANTADINE 100MG TABLET PO SCH ×2 (09:01→22:12)
[2023-05-26] MEDS: FINASTERIDE 5MG TAB PO SCH (09:01)
[2023-05-26] MEDS: MULTIVITAMINS/MINERALS THERAP 1 TAB PO SCH (09:02)
[2023-05-26] MEDS: lisinopriL 5 MG TAB PO SCH (09:02)
[2023-05-26] MEDS: clonazePAM 0.5 MG TAB PO PRN ×2 (09:08→22:13)
[2023-05-26] MEDS: NICOTINE POLACRILEX 2 MG GUM PO PRN ×3 (09:08→22:15)
[2023-05-26] MEDS: OLANZapine ORAL DISINTEGRATING TAB 5MG PO PRN ×2 (11:30→17:17)
[2023-05-26] MEDS ORDERED: TUBERCULIN PPD 5 UNITS/0.1 ML ID ONE (12:30)
[2023-05-26 18:50] VITALS: BP 101/62; TEMP 96.6; O2SAT 97
[2023-05-26] MEDS: OLANZapine 10 MG TAB PO SCH (22:12)
[2023-05-26] MEDS: cloNIDine 0.1MG TABLET PO SCH (22:13)
[2023-05-27] MEDS: LEVOTHYROXINE 100MCG TABLET (0.1MG) PO SCH (06:05)
[2023-05-27] MEDS: DIVALPROEX 500MG *ER* TAB PO SCH ×2 (09:23→21:16)
[2023-05-27] MEDS: VENLAFAXINE **XR** 37.5 MG CAPSULE PO SCH (09:23)
[2023-05-27] MEDS: TAMSULOSIN 0.4 MG CAP PO SCH (09:23)
[2023-05-27] MEDS: VENLAFAXINE **XR** 75MG CAPSULE PO SCH (09:23)
[2023-05-27] MEDS: AMANTADINE 100MG TABLET PO SCH ×2 (09:23→21:15)
[2023-05-27] MEDS: FINASTERIDE 5MG TAB PO SCH (09:24)
[2023-05-27] MEDS: TRIHEXYPHENIDYL 2 MG TAB PO SCH (09:24)
[2023-05-27] MEDS: VITAMIN D 1,000 INTERNATIONAL UNITS TABLET PO SCH (09:24)
[2023-05-27] MEDS: MULTIVITAMINS/MINERALS THERAP 1 TAB PO SCH (09:24)
[2023-05-27] MEDS: PANTOPRAZOLE 40MG TAB (PROTONIX) PO SCH (09:25)
[2023-05-27] MEDS: TIOTROPIUM INHALER/CAPSULE (SPIRIVA) INH SCH (09:25)
[2023-05-27 09:28] VITALS: BP 125/71
[2023-05-27] MEDS: lisinopriL 5 MG TAB PO SCH (09:29)
[2023-05-27] MEDS: NICOTINE POLACRILEX 2 MG GUM PO PRN (09:31)
[2023-05-27] MEDS: clonazePAM 0.5 MG TAB PO PRN (11:57)
[2023-05-27] MEDS: OLANZapine ORAL DISINTEGRATING TAB 5MG PO PRN (13:14)
[2023-05-27 18:27] VITALS: BP 126/76; TEMP 96.8
[2023-05-27] MEDS: OLANZapine 10 MG TAB PO SCH (21:16)
[2023-05-27] MEDS: cloNIDine 0.1MG TABLET PO SCH (21:20)
[2023-05-28] MEDS: LEVOTHYROXINE 100MCG TABLET (0.1MG) PO SCH (06:05)
[2023-05-28 06:31] LABS: BASO # 0.1 10^3/uL (0.0-0.2); BASO % 0.7 % (0.0-1.0); EOS # 0.1 10^3/uL (0.0-0.5); EOS % 1.4 % (0.0-3.0); HEMATOCRIT 40.5 % (42.0-52.0); HEMOGLOBIN 13.5 g/dl (13.5-17.5); LYMPH # 3.4 10^3/uL (1.5-5.0); LYMPH % 35.3 % (24.0-44.0); MEAN CORPUSCULAR HEMOGLOBIN 31.8 pg (27.0-33.0); MEAN CORPUSCULAR HGB CONC 33.3 g/dl (32.0-36.5); MEAN CORPUSCULAR VOLUME 95.3 fl (80.0-96.0); MONO # 1.3 10^3/uL (0.0-0.8); MONO % 13.9 % (2.0-8.0); NEUTROPHILS # 4.6 10^3/uL (1.5-8.5); NEUTROPHILS % 48.1 % (36.0-66.0); PLATELET COUNT, AUTOMATED 162 10^3/uL (150-450); RED BLOOD COUNT 4.25 10^6/uL (4.30-6.10); WHITE BLOOD COUNT 9.5 10^3/uL (4.0-10.0)
[2023-05-28 06:41] VITALS: BP 123/70; TEMP 97.1; O2SAT 98
[2023-05-28] MEDS: TAMSULOSIN 0.4 MG CAP PO SCH (08:43)
[2023-05-28] MEDS: TIOTROPIUM INHALER/CAPSULE (SPIRIVA) INH SCH (08:43)
[2023-05-28] MEDS: TRIHEXYPHENIDYL 2 MG TAB PO SCH (08:43)
[2023-05-28] MEDS: MULTIVITAMINS/MINERALS THERAP 1 TAB PO SCH (08:43)
[2023-05-28] MEDS: lisinopriL 5 MG TAB PO SCH (08:43)
[2023-05-28] MEDS: VITAMIN D 1,000 INTERNATIONAL UNITS TABLET PO SCH (08:44)
[2023-05-28] MEDS: VENLAFAXINE **XR** 75MG CAPSULE PO SCH (08:44)
[2023-05-28] MEDS: VENLAFAXINE **XR** 37.5 MG CAPSULE PO SCH (08:44)
[2023-05-28] MEDS: clonazePAM 0.5 MG TAB PO PRN ×2 (08:45→21:52)
[2023-05-28] MEDS: DIVALPROEX 500MG *ER* TAB PO SCH ×2 (08:45→21:49)
[2023-05-28] MEDS: FINASTERIDE 5MG TAB PO SCH (08:46)
[2023-05-28] MEDS: PANTOPRAZOLE 40MG TAB (PROTONIX) PO SCH (08:46)
[2023-05-28] MEDS: AMANTADINE 100MG TABLET PO SCH ×2 (08:46→21:49)
[2023-05-28] MEDS: NICOTINE POLACRILEX 2 MG GUM PO PRN ×3 (08:46→21:50)
[2023-05-28] MEDS ORDERED: PPD DOCUMENTATION ENTRY MISC XX ONE (12:30)
[2023-05-28] MEDS: OLANZapine ORAL DISINTEGRATING TAB 5MG PO PRN (15:48)
[2023-05-28 17:46] VITALS: BP 138/70; TEMP 98; O2SAT 100
[2023-05-28] MEDS: cloNIDine 0.1MG TABLET PO SCH (21:00)
[2023-05-28] MEDS: OLANZapine 10 MG TAB PO SCH (21:49)
[2023-05-29] MEDS: LEVOTHYROXINE 100MCG TABLET (0.1MG) PO SCH (05:29)
[2023-05-29 06:20] VITALS: BP 120/65; TEMP 96.6; O2SAT 99
[2023-05-29] MEDS: TIOTROPIUM INHALER/CAPSULE (SPIRIVA) INH SCH (08:00)
[2023-05-29] MEDS: VENLAFAXINE **XR** 37.5 MG CAPSULE PO SCH (08:48)
[2023-05-29] MEDS: VENLAFAXINE **XR** 75MG CAPSULE PO SCH (08:48)
[2023-05-29] MEDS: VITAMIN D 1,000 INTERNATIONAL UNITS TABLET PO SCH (08:48)
[2023-05-29] MEDS: TRIHEXYPHENIDYL 2 MG TAB PO SCH (08:49)
[2023-05-29] MEDS: FINASTERIDE 5MG TAB PO SCH (08:49)
[2023-05-29] MEDS: AMANTADINE 100MG TABLET PO SCH ×2 (08:49→21:05)
[2023-05-29] MEDS: DIVALPROEX 500MG *ER* TAB PO SCH ×2 (08:49→21:05)
[2023-05-29] MEDS: lisinopriL 5 MG TAB PO SCH (08:49)
[2023-05-29] MEDS: MULTIVITAMINS/MINERALS THERAP 1 TAB PO SCH (08:50)
[2023-05-29] MEDS: PANTOPRAZOLE 40MG TAB (PROTONIX) PO SCH (08:50)
[2023-05-29] MEDS: DOCUSATE SODIUM 100MG CAPSULE PO PRN ×2 (08:50→21:04)
[2023-05-29] MEDS: TAMSULOSIN 0.4 MG CAP PO SCH (08:50)
[2023-05-29] MEDS: clonazePAM 0.5 MG TAB PO PRN ×2 (08:51→21:05)
[2023-05-29] MEDS: NICOTINE POLACRILEX 2 MG GUM PO PRN ×3 (08:52→21:04)
[2023-05-29] MEDS: OLANZapine ORAL DISINTEGRATING TAB 5MG PO PRN (15:16)
[2023-05-29 18:42] VITALS: BP 109/70; TEMP 97.8; O2SAT 97
[2023-05-29] MEDS: OLANZapine 10 MG TAB PO SCH (21:04)
[2023-05-29] MEDS: cloNIDine 0.1MG TABLET PO SCH (21:06)
[2023-05-30] MEDS: LEVOTHYROXINE 100MCG TABLET (0.1MG) PO SCH (05:30)
[2023-05-30 06:31] VITALS: BP 97/60; TEMP 97; O2SAT 98
[2023-05-30] MEDS: lisinopriL 5 MG TAB PO SCH (09:00)
[2023-05-30 09:14] VITALS: BP 104/72
[2023-05-30] MEDS: NICOTINE POLACRILEX 2 MG GUM PO PRN ×2 (09:22→21:34)
[2023-05-30] MEDS: VENLAFAXINE **XR** 37.5 MG CAPSULE PO SCH (09:23)
[2023-05-30] MEDS: TIOTROPIUM INHALER/CAPSULE (SPIRIVA) INH SCH (09:23)
[2023-05-30] MEDS: VENLAFAXINE **XR** 75MG CAPSULE PO SCH (09:24)
[2023-05-30] MEDS: AMANTADINE 100MG TABLET PO SCH ×2 (09:24→21:34)
[2023-05-30] MEDS: TAMSULOSIN 0.4 MG CAP PO SCH (09:25)
[2023-05-30] MEDS: MULTIVITAMINS/MINERALS THERAP 1 TAB PO SCH (09:25)
[2023-05-30] MEDS: PANTOPRAZOLE 40MG TAB (PROTONIX) PO SCH (09:25)
[2023-05-30] MEDS: DIVALPROEX 500MG *ER* TAB PO SCH ×2 (09:25→21:34)
[2023-05-30] MEDS: FINASTERIDE 5MG TAB PO SCH (09:25)
[2023-05-30] MEDS: TRIHEXYPHENIDYL 2 MG TAB PO SCH (09:27)
[2023-05-30] MEDS: VITAMIN D 1,000 INTERNATIONAL UNITS TABLET PO SCH (09:27)
[2023-05-30] MEDS: clonazePAM 0.5 MG TAB PO PRN (09:41)
[2023-05-30] MEDS: OLANZapine ORAL DISINTEGRATING TAB 5MG PO PRN (17:12)
[2023-05-30 18:00] VITALS: BP 111/69; TEMP 98.3; O2SAT 99
[2023-05-30] MEDS: cloNIDine 0.1MG TABLET PO SCH (21:34)
[2023-05-30] MEDS: DOCUSATE SODIUM 100MG CAPSULE PO PRN (21:34)
[2023-05-30] MEDS: OLANZapine 10 MG TAB PO SCH (21:34)
[2023-05-31] MEDS: LEVOTHYROXINE 100MCG TABLET (0.1MG) PO SCH (05:47)
[2023-05-31 06:32] VITALS: BP 105/72; TEMP 97.3; O2SAT 98
[2023-05-31 08:44] VITALS: BP 109/78
[2023-05-31] MEDS: DOCUSATE SODIUM 100MG CAPSULE PO PRN (08:54)
[2023-05-31] MEDS: clonazePAM 0.5 MG TAB PO PRN ×2 (08:54→21:15)
[2023-05-31] MEDS: NICOTINE POLACRILEX 2 MG GUM PO PRN ×3 (08:55→21:15)
[2023-05-31] MEDS: DIVALPROEX 500MG *ER* TAB PO SCH ×2 (08:56→21:14)
[2023-05-31] MEDS: VITAMIN D 1,000 INTERNATIONAL UNITS TABLET PO SCH (08:56)
[2023-05-31] MEDS: MULTIVITAMINS/MINERALS THERAP 1 TAB PO SCH (08:56)
[2023-05-31] MEDS: AMANTADINE 100MG TABLET PO SCH ×2 (08:56→21:14)
[2023-05-31] MEDS: VENLAFAXINE **XR** 37.5 MG CAPSULE PO SCH (08:57)
[2023-05-31] MEDS: VENLAFAXINE **XR** 75MG CAPSULE PO SCH (08:57)
[2023-05-31] MEDS: lisinopriL 5 MG TAB PO SCH (08:57)
[2023-05-31] MEDS: TAMSULOSIN 0.4 MG CAP PO SCH (08:57)
[2023-05-31] MEDS: PANTOPRAZOLE 40MG TAB (PROTONIX) PO SCH (08:58)
[2023-05-31] MEDS: FINASTERIDE 5MG TAB PO SCH (08:58)
[2023-05-31] MEDS: TRIHEXYPHENIDYL 2 MG TAB PO SCH (08:58)
[2023-05-31] MEDS: TIOTROPIUM INHALER/CAPSULE (SPIRIVA) INH SCH (08:58)
[2023-05-31] MEDS: OLANZapine ORAL DISINTEGRATING TAB 5MG PO PRN (14:42)
[2023-05-31 18:15] VITALS: BP 98/58; TEMP 97.4; O2SAT 98
[2023-05-31] MEDS: OLANZapine 10 MG TAB PO SCH (21:14)
[2023-05-31] MEDS: cloNIDine 0.1MG TABLET PO SCH (21:15)
[2023-06-01] MEDS: LEVOTHYROXINE 100MCG TABLET (0.1MG) PO SCH (05:56)
[2023-06-01 06:41] VITALS: BP 110/75; TEMP 96.2; O2SAT 95
[2023-06-01] MEDS: lisinopriL 5 MG TAB PO SCH (09:11)
[2023-06-01] MEDS: TAMSULOSIN 0.4 MG CAP PO SCH (09:11)
[2023-06-01] MEDS: DIVALPROEX 500MG *ER* TAB PO SCH ×2 (09:11→21:21)
[2023-06-01] MEDS: MULTIVITAMINS/MINERALS THERAP 1 TAB PO SCH (09:11)
[2023-06-01] MEDS: FINASTERIDE 5MG TAB PO SCH (09:12)
[2023-06-01] MEDS: TRIHEXYPHENIDYL 2 MG TAB PO SCH (09:12)
[2023-06-01] MEDS: PANTOPRAZOLE 40MG TAB (PROTONIX) PO SCH (09:12)
[2023-06-01] MEDS: VITAMIN D 1,000 INTERNATIONAL UNITS TABLET PO SCH (09:12)
[2023-06-01] MEDS: VENLAFAXINE **XR** 75MG CAPSULE PO SCH (09:12)
[2023-06-01] MEDS: AMANTADINE 100MG TABLET PO SCH ×2 (09:12→21:21)
[2023-06-01] MEDS: VENLAFAXINE **XR** 37.5 MG CAPSULE PO SCH (09:12)
[2023-06-01] MEDS: TIOTROPIUM INHALER/CAPSULE (SPIRIVA) INH SCH (09:13)
[2023-06-01 16:44] VITALS: BP 96/66; TEMP 97.4; O2SAT 100
[2023-06-01] MEDS: clonazePAM 0.5 MG TAB PO PRN (21:20)
[2023-06-01] MEDS: OLANZapine 10 MG TAB PO SCH (21:21)
[2023-06-01] MEDS: DOCUSATE SODIUM 100MG CAPSULE PO PRN (21:21)
[2023-06-01] MEDS: cloNIDine 0.1MG TABLET PO SCH (21:21)
[2023-06-01] MEDS: NICOTINE POLACRILEX 2 MG GUM PO PRN (21:23)
[2023-06-02] MEDS: LEVOTHYROXINE 100MCG TABLET (0.1MG) PO SCH (06:08)
[2023-06-02 06:54] VITALS: BP 102/63; TEMP 98.3; O2SAT 98
[2023-06-02] MEDS: TIOTROPIUM INHALER/CAPSULE (SPIRIVA) INH SCH (08:25)
[2023-06-02] MEDS: FINASTERIDE 5MG TAB PO SCH (08:25)
[2023-06-02] MEDS: PANTOPRAZOLE 40MG TAB (PROTONIX) PO SCH (08:26)
[2023-06-02] MEDS: VENLAFAXINE **XR** 37.5 MG CAPSULE PO SCH (08:26)
[2023-06-02] MEDS: VENLAFAXINE **XR** 75MG CAPSULE PO SCH (08:26)
[2023-06-02] MEDS: VITAMIN D 1,000 INTERNATIONAL UNITS TABLET PO SCH (08:27)
[2023-06-02] MEDS: MULTIVITAMINS/MINERALS THERAP 1 TAB PO SCH (08:27)
[2023-06-02] MEDS: DIVALPROEX 500MG *ER* TAB PO SCH ×2 (08:27→20:41)
[2023-06-02] MEDS: TAMSULOSIN 0.4 MG CAP PO SCH (08:27)
[2023-06-02] MEDS: AMANTADINE 100MG TABLET PO SCH ×2 (08:27→20:40)
[2023-06-02] MEDS: TRIHEXYPHENIDYL 2 MG TAB PO SCH (08:27)
[2023-06-02] MEDS: lisinopriL 5 MG TAB PO SCH (08:29)
[2023-06-02] MEDS: DOCUSATE SODIUM 100MG CAPSULE PO PRN ×2 (08:33→20:43)
[2023-06-02] MEDS: clonazePAM 0.5 MG TAB PO PRN ×2 (08:34→20:41)
[2023-06-02] MEDS: NICOTINE POLACRILEX 2 MG GUM PO PRN ×2 (08:35→20:40)
[2023-06-02 18:02] VITALS: BP 117/68; TEMP 97.3; O2SAT 100
[2023-06-02] MEDS: OLANZapine ORAL DISINTEGRATING TAB 5MG PO PRN (19:20)
[2023-06-02] MEDS: OLANZapine 10 MG TAB PO SCH (20:40)
[2023-06-02] MEDS: cloNIDine 0.1MG TABLET PO SCH (20:43)
[2023-06-03] MEDS: LEVOTHYROXINE 100MCG TABLET (0.1MG) PO SCH (05:43)
[2023-06-03 06:20] VITALS: BP 130/81; TEMP 97.6; O2SAT 98
[2023-06-03] MEDS: VENLAFAXINE **XR** 75MG CAPSULE PO SCH (08:17)
[2023-06-03] MEDS: PANTOPRAZOLE 40MG TAB (PROTONIX) PO SCH (08:18)
[2023-06-03] MEDS: DIVALPROEX 500MG *ER* TAB PO SCH ×2 (08:18→21:41)
[2023-06-03] MEDS: TIOTROPIUM INHALER/CAPSULE (SPIRIVA) INH SCH (08:19)
[2023-06-03] MEDS: MULTIVITAMINS/MINERALS THERAP 1 TAB PO SCH (08:19)
[2023-06-03] MEDS: TAMSULOSIN 0.4 MG CAP PO SCH (08:20)
[2023-06-03] MEDS: FINASTERIDE 5MG TAB PO SCH (08:20)
[2023-06-03] MEDS: TRIHEXYPHENIDYL 2 MG TAB PO SCH (08:20)
[2023-06-03] MEDS: lisinopriL 5 MG TAB PO SCH (08:21)
[2023-06-03] MEDS: VENLAFAXINE **XR** 37.5 MG CAPSULE PO SCH (08:21)
[2023-06-03] MEDS: AMANTADINE 100MG TABLET PO SCH ×2 (08:21→21:42)
[2023-06-03] MEDS: VITAMIN D 1,000 INTERNATIONAL UNITS TABLET PO SCH (08:23)
[2023-06-03] MEDS: NICOTINE POLACRILEX 2 MG GUM PO PRN ×2 (08:24→21:41)
[2023-06-03] MEDS: clonazePAM 0.5 MG TAB PO PRN (08:55)
[2023-06-03 18:25] VITALS: BP 140/90; TEMP 98; O2SAT 0
[2023-06-03] MEDS: OLANZapine ORAL DISINTEGRATING TAB 5MG PO PRN (18:44)
[2023-06-03] MEDS: cloNIDine 0.1MG TABLET PO SCH (21:00)
[2023-06-03] MEDS: OLANZapine 10 MG TAB PO SCH (21:41)
[2023-06-03] MEDS: DOCUSATE SODIUM 100MG CAPSULE PO PRN (21:41)
[2023-06-04] MEDS: LEVOTHYROXINE 100MCG TABLET (0.1MG) PO SCH (05:36)
[2023-06-04 06:14] VITALS: BP 111/65; TEMP 96.8; O2SAT 97
[2023-06-04 06:39] LABS: BASO # 0.1 10^3/uL (0.0-0.2); BASO % 0.7 % (0.0-1.0); EOS # 0.1 10^3/uL (0.0-0.5); HEMATOCRIT 41.7 % (42.0-52.0); HEMOGLOBIN 14.1 g/dl (13.5-17.5); LYMPH # 3.2 10^3/uL (1.5-5.0); LYMPH % 35.8 % (24.0-44.0); MEAN CORPUSCULAR HEMOGLOBIN 32.6 pg (27.0-33.0); MEAN CORPUSCULAR HGB CONC 33.8 g/dl (32.0-36.5); MEAN CORPUSCULAR VOLUME 96.3 fl (80.0-96.0); MONO # 1.2 10^3/uL (0.0-0.8); MONO % 12.8 % (2.0-8.0); NEUTROPHILS # 4.4 10^3/uL (1.5-8.5); PLATELET COUNT, AUTOMATED 159 10^3/uL (150-450); RED BLOOD COUNT 4.33 10^6/uL (4.30-6.10); WHITE BLOOD COUNT 9.1 10^3/uL (4.0-10.0)
[2023-06-04 06:50] VITALS: BP 96/65; TEMP 97.3; O2SAT 96
[2023-06-04] MEDS: TIOTROPIUM INHALER/CAPSULE (SPIRIVA) INH SCH (08:31)
[2023-06-04] MEDS: VENLAFAXINE **XR** 37.5 MG CAPSULE PO SCH (08:33)
[2023-06-04] MEDS: VENLAFAXINE **XR** 75MG CAPSULE PO SCH (08:33)
[2023-06-04] MEDS: VITAMIN D 1,000 INTERNATIONAL UNITS TABLET PO SCH (08:33)
[2023-06-04] MEDS: MULTIVITAMINS/MINERALS THERAP 1 TAB PO SCH (08:34)
[2023-06-04] MEDS: PANTOPRAZOLE 40MG TAB (PROTONIX) PO SCH (08:34)
[2023-06-04] MEDS: lisinopriL 5 MG TAB PO SCH (08:34)
[2023-06-04] MEDS: DIVALPROEX 500MG *ER* TAB PO SCH ×2 (08:34→20:49)
[2023-06-04] MEDS: NICOTINE POLACRILEX 2 MG GUM PO PRN ×2 (08:35→20:48)
[2023-06-04] MEDS: clonazePAM 0.5 MG TAB PO PRN ×2 (08:35→20:49)
[2023-06-04] MEDS: TAMSULOSIN 0.4 MG CAP PO SCH (08:35)
[2023-06-04] MEDS: AMANTADINE 100MG TABLET PO SCH ×2 (08:35→20:48)
[2023-06-04] MEDS: DOCUSATE SODIUM 100MG CAPSULE PO PRN ×2 (08:35→20:49)
[2023-06-04] MEDS: TRIHEXYPHENIDYL 2 MG TAB PO SCH (08:36)
[2023-06-04] MEDS: FINASTERIDE 5MG TAB PO SCH (09:24)
[2023-06-04 16:18] VITALS: BP 117/67; TEMP 97; O2SAT 96
[2023-06-04] MEDS: OLANZapine 10 MG TAB PO SCH (20:49)
[2023-06-04] MEDS: cloNIDine 0.1MG TABLET PO SCH (20:53)
[2023-06-05] MEDS: LEVOTHYROXINE 100MCG TABLET (0.1MG) PO SCH (05:56)
[2023-06-05 06:47] VITALS: BP 107/67; TEMP 96.6; O2SAT 96
[2023-06-05] MEDS: NICOTINE POLACRILEX 2 MG GUM PO PRN ×2 (08:03→16:31)
[2023-06-05] MEDS: TIOTROPIUM INHALER/CAPSULE (SPIRIVA) INH SCH (08:03)
[2023-06-05] MEDS: VENLAFAXINE **XR** 75MG CAPSULE PO SCH (08:04)
[2023-06-05] MEDS: DOCUSATE SODIUM 100MG CAPSULE PO PRN ×2 (08:04→20:40)
[2023-06-05] MEDS: clonazePAM 0.5 MG TAB PO PRN ×2 (08:04→20:40)
[2023-06-05] MEDS: VENLAFAXINE **XR** 37.5 MG CAPSULE PO SCH (08:04)
[2023-06-05] MEDS: VITAMIN D 1,000 INTERNATIONAL UNITS TABLET PO SCH (08:04)
[2023-06-05] MEDS: TAMSULOSIN 0.4 MG CAP PO SCH (08:05)
[2023-06-05] MEDS: AMANTADINE 100MG TABLET PO SCH ×2 (08:05→20:40)
[2023-06-05] MEDS: MULTIVITAMINS/MINERALS THERAP 1 TAB PO SCH (08:05)
[2023-06-05] MEDS: lisinopriL 5 MG TAB PO SCH (08:09)
[2023-06-05] MEDS: DIVALPROEX 500MG *ER* TAB PO SCH ×2 (08:10→20:40)
[2023-06-05] MEDS: FINASTERIDE 5MG TAB PO SCH (08:10)
[2023-06-05] MEDS: TRIHEXYPHENIDYL 2 MG TAB PO SCH (08:10)
[2023-06-05] MEDS: PANTOPRAZOLE 40MG TAB (PROTONIX) PO SCH (08:10)
[2023-06-05 16:56] VITALS: BP 112/77; TEMP 97.5; O2SAT 96
[2023-06-05] MEDS: OLANZapine 10 MG TAB PO SCH (20:40)
[2023-06-05] MEDS: cloNIDine 0.1MG TABLET PO SCH (20:41)
[2023-06-06] MEDS: LEVOTHYROXINE 100MCG TABLET (0.1MG) PO SCH (06:03)
[2023-06-06 06:40] VITALS: BP 116/70; TEMP 96.6; O2SAT 94
[2023-06-06] MEDS: AMANTADINE 100MG TABLET PO SCH ×2 (08:27→20:17)
[2023-06-06] MEDS: TRIHEXYPHENIDYL 2 MG TAB PO SCH (08:27)
[2023-06-06] MEDS: MULTIVITAMINS/MINERALS THERAP 1 TAB PO SCH (08:27)
[2023-06-06] MEDS: VENLAFAXINE **XR** 37.5 MG CAPSULE PO SCH (08:27)
[2023-06-06] MEDS: lisinopriL 5 MG TAB PO SCH (08:27)
[2023-06-06] MEDS: VENLAFAXINE **XR** 75MG CAPSULE PO SCH (08:28)
[2023-06-06] MEDS: DIVALPROEX 500MG *ER* TAB PO SCH ×2 (08:28→20:19)
[2023-06-06] MEDS: PANTOPRAZOLE 40MG TAB (PROTONIX) PO SCH (08:28)
[2023-06-06] MEDS: TAMSULOSIN 0.4 MG CAP PO SCH (08:29)
[2023-06-06] MEDS: VITAMIN D 1,000 INTERNATIONAL UNITS TABLET PO SCH (08:29)
[2023-06-06] MEDS: FINASTERIDE 5MG TAB PO SCH (08:29)
[2023-06-06] MEDS: TIOTROPIUM INHALER/CAPSULE (SPIRIVA) INH SCH (08:30)
[2023-06-06] MEDS: NICOTINE POLACRILEX 2 MG GUM PO PRN ×3 (08:32→21:03)
[2023-06-06] MEDS: clonazePAM 0.5 MG TAB PO PRN ×2 (08:59→20:19)
[2023-06-06] MEDS: OLANZapine ORAL DISINTEGRATING TAB 5MG PO PRN (16:44)
[2023-06-06 18:01] VITALS: TEMP 97.6
[2023-06-06] MEDS: OLANZapine 10 MG TAB PO SCH (20:17)
[2023-06-06] MEDS: DOCUSATE SODIUM 100MG CAPSULE PO PRN (20:17)
[2023-06-06] MEDS: cloNIDine 0.1MG TABLET PO SCH (20:19)
[2023-06-07] MEDS: LEVOTHYROXINE 100MCG TABLET (0.1MG) PO SCH (05:33)
[2023-06-07 06:29] VITALS: BP 101/73; TEMP 96.4; O2SAT 96
[2023-06-07] MEDS: TIOTROPIUM INHALER/CAPSULE (SPIRIVA) INH SCH (08:54)
[2023-06-07] MEDS: VENLAFAXINE **XR** 37.5 MG CAPSULE PO SCH (08:55)
[2023-06-07] MEDS: VENLAFAXINE **XR** 75MG CAPSULE PO SCH (08:55)
[2023-06-07] MEDS: clonazePAM 0.5 MG TAB PO PRN ×2 (08:55→21:11)
[2023-06-07] MEDS: DIVALPROEX 500MG *ER* TAB PO SCH ×2 (08:56→20:40)
[2023-06-07] MEDS: AMANTADINE 100MG TABLET PO SCH ×2 (08:56→20:41)
[2023-06-07] MEDS: TAMSULOSIN 0.4 MG CAP PO SCH (08:56)
[2023-06-07] MEDS: PANTOPRAZOLE 40MG TAB (PROTONIX) PO SCH (08:56)
[2023-06-07] MEDS: VITAMIN D 1,000 INTERNATIONAL UNITS TABLET PO SCH (08:57)
[2023-06-07] MEDS: MULTIVITAMINS/MINERALS THERAP 1 TAB PO SCH (08:57)
[2023-06-07] MEDS: DOCUSATE SODIUM 100MG CAPSULE PO PRN ×2 (08:57→21:10)
[2023-06-07] MEDS: lisinopriL 5 MG TAB PO SCH (08:57)
[2023-06-07] MEDS: FINASTERIDE 5MG TAB PO SCH (08:57)
[2023-06-07] MEDS: NICOTINE POLACRILEX 2 MG GUM PO PRN ×2 (08:58→20:39)
[2023-06-07] MEDS: TRIHEXYPHENIDYL 2 MG TAB PO SCH (08:58)
[2023-06-07 17:34] VITALS: BP 119/76; TEMP 97.8; O2SAT 99
[2023-06-07] MEDS: cloNIDine 0.1MG TABLET PO SCH (20:39)
[2023-06-07] MEDS: OLANZapine 10 MG TAB PO SCH (20:40)
[2023-06-08] MEDS: LEVOTHYROXINE 100MCG TABLET (0.1MG) PO SCH (05:31)
[2023-06-08 06:02] VITALS: BP 103/72; TEMP 97; O2SAT 96
[2023-06-08] MEDS: AMANTADINE 100MG TABLET PO SCH ×2 (08:34→20:10)
[2023-06-08] MEDS: lisinopriL 5 MG TAB PO SCH (08:36)
[2023-06-08] MEDS: TRIHEXYPHENIDYL 2 MG TAB PO SCH (08:36)
[2023-06-08] MEDS: VITAMIN D 1,000 INTERNATIONAL UNITS TABLET PO SCH (08:36)
[2023-06-08] MEDS: PANTOPRAZOLE 40MG TAB (PROTONIX) PO SCH (08:36)
[2023-06-08] MEDS: DIVALPROEX 500MG *ER* TAB PO SCH ×2 (08:36→20:10)
[2023-06-08] MEDS: TAMSULOSIN 0.4 MG CAP PO SCH (08:36)
[2023-06-08] MEDS: MULTIVITAMINS/MINERALS THERAP 1 TAB PO SCH (08:36)
[2023-06-08] MEDS: FINASTERIDE 5MG TAB PO SCH (08:37)
[2023-06-08] MEDS: VENLAFAXINE **XR** 37.5 MG CAPSULE PO SCH (08:37)
[2023-06-08] MEDS: VENLAFAXINE **XR** 75MG CAPSULE PO SCH (08:37)
[2023-06-08] MEDS: TIOTROPIUM INHALER/CAPSULE (SPIRIVA) INH SCH (08:38)
[2023-06-08] MEDS: NICOTINE POLACRILEX 2 MG GUM PO PRN ×2 (08:44→20:10)
[2023-06-08] MEDS: DOCUSATE SODIUM 100MG CAPSULE PO PRN ×2 (08:47→21:16)
[2023-06-08] MEDS: clonazePAM 0.5 MG TAB PO PRN ×2 (08:48→21:16)
[2023-06-08 18:27] VITALS: BP 118/65; TEMP 98.2; O2SAT 94
[2023-06-08] MEDS: OLANZapine 10 MG TAB PO SCH (20:11)
[2023-06-08] MEDS: cloNIDine 0.1MG TABLET PO SCH (20:11)
[2023-06-09] MEDS: LEVOTHYROXINE 100MCG TABLET (0.1MG) PO SCH (05:31)
[2023-06-09 05:51] VITALS: BP 105/73; TEMP 97; O2SAT 96
[2023-06-09 06:17] VITALS: BP 97/67; TEMP 97.5; O2SAT 96
[2023-06-09] MEDS: MULTIVITAMINS/MINERALS THERAP 1 TAB PO SCH (08:42)
[2023-06-09] MEDS: TAMSULOSIN 0.4 MG CAP PO SCH (08:43)
[2023-06-09] MEDS: lisinopriL 5 MG TAB PO SCH (08:43)
[2023-06-09] MEDS: AMANTADINE 100MG TABLET PO SCH ×2 (08:43→20:55)
[2023-06-09] MEDS: VENLAFAXINE **XR** 75MG CAPSULE PO SCH (08:43)
[2023-06-09] MEDS: VITAMIN D 1,000 INTERNATIONAL UNITS TABLET PO SCH (08:44)
[2023-06-09] MEDS: DIVALPROEX 500MG *ER* TAB PO SCH ×2 (08:44→20:55)
[2023-06-09] MEDS: PANTOPRAZOLE 40MG TAB (PROTONIX) PO SCH (08:44)
[2023-06-09] MEDS: VENLAFAXINE **XR** 37.5 MG CAPSULE PO SCH (08:44)
[2023-06-09] MEDS: FINASTERIDE 5MG TAB PO SCH (08:45)
[2023-06-09] MEDS: TRIHEXYPHENIDYL 2 MG TAB PO SCH (08:45)
[2023-06-09] MEDS: TIOTROPIUM INHALER/CAPSULE (SPIRIVA) INH SCH (08:45)
[2023-06-09] MEDS: NICOTINE POLACRILEX 2 MG GUM PO PRN ×3 (08:51→20:55)
[2023-06-09] MEDS: DOCUSATE SODIUM 100MG CAPSULE PO PRN ×2 (09:40→22:04)
[2023-06-09] MEDS: clonazePAM 0.5 MG TAB PO PRN ×2 (09:40→22:04)
[2023-06-09 17:51] VITALS: BP 132/74; TEMP 97.4; O2SAT 98
[2023-06-09] MEDS: cloNIDine 0.1MG TABLET PO SCH (20:55)
[2023-06-09] MEDS: OLANZapine 10 MG TAB PO SCH (20:55)
[2023-06-10] MEDS: LEVOTHYROXINE 100MCG TABLET (0.1MG) PO SCH (06:36)
[2023-06-10 07:02] VITALS: BP 111/68; TEMP 96.1; O2SAT 96
[2023-06-10] MEDS: VENLAFAXINE **XR** 75MG CAPSULE PO SCH (08:34)
[2023-06-10] MEDS: TRIHEXYPHENIDYL 2 MG TAB PO SCH (08:34)
[2023-06-10] MEDS: VITAMIN D 1,000 INTERNATIONAL UNITS TABLET PO SCH (08:35)
[2023-06-10] MEDS: FINASTERIDE 5MG TAB PO SCH (08:35)
[2023-06-10] MEDS: VENLAFAXINE **XR** 37.5 MG CAPSULE PO SCH (08:35)
[2023-06-10] MEDS: PANTOPRAZOLE 40MG TAB (PROTONIX) PO SCH (08:35)
[2023-06-10] MEDS: AMANTADINE 100MG TABLET PO SCH (08:35)
[2023-06-10] MEDS: DIVALPROEX 500MG *ER* TAB PO SCH (08:35)
[2023-06-10] MEDS: TAMSULOSIN 0.4 MG CAP PO SCH (08:35)
[2023-06-10 08:36] VITALS: BP 111/68
[2023-06-10] MEDS: TIOTROPIUM INHALER/CAPSULE (SPIRIVA) INH SCH (08:36)
[2023-06-10] MEDS: lisinopriL 5 MG TAB PO SCH (08:36)
[2023-06-10] MEDS: MULTIVITAMINS/MINERALS THERAP 1 TAB PO SCH (08:36)
[2023-06-10] MEDS: NICOTINE POLACRILEX 2 MG GUM PO PRN (08:38)
[2023-06-10] MEDS: clonazePAM 0.5 MG TAB PO PRN (10:44)
[2023-06-10] MEDS ORDERED: CLOZ100T5 PO ×2 (11:57)
[2023-06-10] MEDS ORDERED: VENL150C43 PO (11:57)
[2023-06-10] MEDS ORDERED: VENL37.52 PO (11:57)
[2023-06-10] MEDS ORDERED: NICO2GUM PO (11:57)
[2023-06-10] MEDS ORDERED: DIVA500T9 PO (11:57)
[2023-06-10] MEDS ORDERED: ABIL400I IM (11:57)
[2023-06-10] MEDS ORDERED: OLAN5ZYD PO (11:57)
[2023-06-10] MEDS ORDERED: ARIPiprazole MONOHYDRATE 400 MG INJ (ABILIFY)(FREE PSY INPT ONLY) IM ONE (13:00)
== END 2023-06-10 13:32 | disposition home or self-care (01) | DRG 885 ==
LOC: M ED 21:59 → M ED INP 05-21 03:40 → M PSY 05-21 04:01
PROVIDERS: ADMIT Student in an Organized Health Care Education/Training Program; ATTEND Student in an Organized Health Care Education/Training Program
DX: F25.1 Schizoaffective disorder, depressive type (principal); R45.851 Suicidal ideations; F17.210 Nicotine dependence, cigarettes, uncomplicated; E78.5 Hyperlipidemia, unspecified; I10 Essential (primary) hypertension; E03.9 Hypothyroidism, unspecified; J44.9 Chronic obstructive pulmonary disease, unspecified; N40.0 Benign prostatic hyperplasia without lower urinary tract symptoms; Z91.52 Personal history of nonsuicidal self-harm; Z56.0 Unemployment, unspecified; Z79.890 Hormone replacement therapy; Z79.899 Other long term (current) drug therapy; Z88.8 Allergy status to other drugs, medicaments and biological substances; K21.9 Gastro-esophageal reflux disease without esophagitis

== ENCOUNTER → 2023-05-20 | Outpatient (CLI) | payer MEDICARE, MEDICAID ==
[~2023-05-20] MED LIST changes: +ABIL1INJ2 IM; +ABIL400I; +ARIP10TA32; +ATARAX PO; +BISA5TAB15 PO; +CLOZ100T5 PO; +D200CAP3 PO; +NICO2GUM MT; +OLAN20TA14 PO; +SENN-52 PO; +SENN8.6T58 PO; +SILD25TA PO; +VENL37.52 PO; +VENL37.598; +VITA100093 PO
[2023-05-20 14:57] LABS: BASO # 0.1 10^3/uL (0.0-0.2); BASO % 0.7 % (0.0-1.0); EOS # 0.1 10^3/uL (0.0-0.5); EOS % 0.7 % (0.0-3.0); HEMATOCRIT 39.8 % (42.0-52.0); HEMOGLOBIN 13.4 g/dl (13.5-17.5); LYMPH # 2.3 10^3/uL (1.5-5.0); LYMPH % 30.5 % (24.0-44.0); MEAN CORPUSCULAR HEMOGLOBIN 32.8 pg (27.0-33.0); MEAN CORPUSCULAR HGB CONC 33.7 g/dl (32.0-36.5); MEAN CORPUSCULAR VOLUME 97.3 fl (80.0-96.0); MONO # 0.9 10^3/uL (0.0-0.8); MONO % 11.6 % (2.0-8.0); NEUTROPHILS # 4.3 10^3/uL (1.5-8.5); NEUTROPHILS % 56.1 % (36.0-66.0); PLATELET COUNT, AUTOMATED 166 10^3/uL (150-450); RED BLOOD COUNT 4.09 10^6/uL (4.30-6.10); WHITE BLOOD COUNT 7.7 10^3/uL (4.0-10.0)
== END ==
LOC: M LAB 12:05
PROVIDERS: ATTEND Nurse Practitioner Psychiatric/Mental Health
DX: F25.0 Schizoaffective disorder, bipolar type (principal)

== ENCOUNTER → 2023-06-14 | Outpatient (CLI) | payer MEDICARE, MEDICAID ==
[~2023-06-14] MED LIST changes: +ABIL1INJ2 IM; +ABIL400I IM; +BISA5TAB15 PO; +D200CAP3 PO; +OLAN5ZYD PO; +SENN8.6T58 PO; +SILD25TA PO; +VENL37.52 PO
[2023-06-14 09:42] LABS: BASO # 0.1 10^3/uL (0.0-0.2); BASO % 0.6 % (0.0-1.0); EOS # 0.1 10^3/uL (0.0-0.5); EOS % 1.2 % (0.0-3.0); HEMATOCRIT 39.6 % (42.0-52.0); LYMPH # 2.7 10^3/uL (1.5-5.0); LYMPH % 31.8 % (24.0-44.0); MEAN CORPUSCULAR HEMOGLOBIN 31.8 pg (27.0-33.0); MEAN CORPUSCULAR HGB CONC 32.8 g/dl (32.0-36.5); MEAN CORPUSCULAR VOLUME 96.8 fl (80.0-96.0); MONO # 1.1 10^3/uL (0.0-0.8); MONO % 13.2 % (2.0-8.0); NEUTROPHILS # 4.5 10^3/uL (1.5-8.5); NEUTROPHILS % 52.5 % (36.0-66.0); PLATELET COUNT, AUTOMATED 172 10^3/uL (150-450); RED BLOOD COUNT 4.09 10^6/uL (4.30-6.10); WHITE BLOOD COUNT 8.5 10^3/uL (4.0-10.0)
== END ==
LOC: M LAB 08:54
PROVIDERS: ATTEND Nurse Practitioner Psychiatric/Mental Health
DX: F25.0 Schizoaffective disorder, bipolar type (principal)

== ENCOUNTER → 2023-07-12 | Outpatient (CLI) | payer MEDICARE, MEDICAID ==
[2023-07-12 14:30] LABS: BASO # 0.1 10^3/uL (0.0-0.2); BASO % 0.7 % (0.0-1.0); EOS # 0.1 10^3/uL (0.0-0.5); EOS % 0.7 % (0.0-3.0); HEMATOCRIT 40.7 % (42.0-52.0); HEMOGLOBIN 13.6 g/dl (13.5-17.5); LYMPH # 2.7 10^3/uL (1.5-5.0); LYMPH % 36.1 % (24.0-44.0); MEAN CORPUSCULAR HEMOGLOBIN 32.2 pg (27.0-33.0); MEAN CORPUSCULAR HGB CONC 33.4 g/dl (32.0-36.5); MEAN CORPUSCULAR VOLUME 96.2 fl (80.0-96.0); MONO # 0.9 10^3/uL (0.0-0.8); MONO % 12.2 % (2.0-8.0); NEUTROPHILS # 3.7 10^3/uL (1.5-8.5); NEUTROPHILS % 49.8 % (36.0-66.0); PLATELET COUNT, AUTOMATED 171 10^3/uL (150-450); RED BLOOD COUNT 4.23 10^6/uL (4.30-6.10); WHITE BLOOD COUNT 7.4 10^3/uL (4.0-10.0)
== END ==
LOC: M LAB 14:01
PROVIDERS: ATTEND Nurse Practitioner Psychiatric/Mental Health
DX: F25.0 Schizoaffective disorder, bipolar type (principal)

== ENCOUNTER 2023-08-01 21:07 | Inpatient (IN) | payer MEDICARE, MEDICAID ==
[~2023-08-01] VITALS: Ht 180.3 cm; Wt 75.5 kg
[~2023-08-01 21:07] MED LIST changes: +D32000TA2 PO; +DULC5TAB PO; +MULT-91 PO
[2023-08-01 22:13] LABS: HEMATOCRIT 39.9 % (42.0-52.0); HEMOGLOBIN 13.4 g/dl (13.5-17.5); MEAN CORPUSCULAR HEMOGLOBIN 31.7 pg (27.0-33.0); MEAN CORPUSCULAR HGB CONC 33.6 g/dl (32.0-36.5); MEAN CORPUSCULAR VOLUME 94.3 fl (80.0-96.0); PLATELET COUNT, AUTOMATED 188 10^3/uL (150-450); RED BLOOD COUNT 4.23 10^6/uL (4.30-6.10); WHITE BLOOD COUNT 8.4 10^3/uL (4.0-10.0)
[2023-08-01] MEDS ORDERED: CLOZ100T5 PO ×2 (22:22)
[2023-08-01] MEDS ORDERED: DIVA500T9 PO (22:22)
[2023-08-01] MEDS ORDERED: HOME MED LIST COMPLETE! XX SCH (22:25)
[2023-08-01 22:26] LABS: AMPHETAMINES LEVEL URINE NEGATIVE (NEGATIVE); BARBITURATES URINE NEGATIVE (NEGATIVE); BENZODIAZEPINES URINE NEGATIVE (NEGATIVE); CANNABINOIDS URINE NEGATIVE (NEGATIVE); COCAINE METABOLITE URINE NEGATIVE (NEGATIVE); OPIATES URINE NEGATIVE (NEGATIVE); PHENCYCLIDINE URINE NEGATIVE (NEGATIVE)
[2023-08-01 22:28] LABS: ETHYL ALCOHOL (ETHANOL) < 0.003 % (0.000-0.010)
[2023-08-01 22:29] LABS: ACETAMINOPHEN LEVEL < 2.0 UG/ML (10.0-20.0)
[2023-08-01 22:30] LABS: ALBUMIN 3.1 G/DL (3.2-5.2); ALKALINE PHOSPHATASE 83 U/L (46-116); ALT/SGPT 21 U/L (7.0-40); AST/SGOT 16 U/L (<34); BILIRUBIN,DIRECT < 0.1 MG/DL (<0.4); BILIRUBIN,TOTAL 0.2 MG/DL (0.3-1.2); BLOOD UREA NITROGEN 19 MG/DL (9-23); CALCIUM LEVEL 8.4 MG/DL (8.3-10.6); CARBON DIOXIDE LEVEL 26 MMOL/L (20-31); CHLORIDE LEVEL 108 MMOL/L (98-107); CREATININE FOR GFR 1.12 MG/DL (0.70-1.30); GLOMERULAR FILTRATION RATE > 60.0 (>49); GLUCOSE, FASTING 96 MG/DL (74-106); METHADONE URINE NEGATIVE (NEGATIVE); SALICYLATE LEVEL < 3.0 MG/DL (<30); SODIUM LEVEL 141 MMOL/L (136-145); TOTAL PROTEIN 6.1 G/DL (5.7-8.2)
[2023-08-01 22:32] LABS: THYROID STIMULATING HORMONE 3.515 uIU/ML (0.55-4.78)
[2023-08-01 23:55] LABS: VALPROIC ACID (DEPAKOTE) 50.8 UG/ML (50.0-100.0)
[2023-08-02] MEDS ORDERED: TIOTROPIUM INHALER/CAPSULE (SPIRIVA) INH SCH (08:00)
[2023-08-02] MEDS ORDERED: DOCUSATE SODIUM 100MG CAPSULE PO PRN (08:10)
[2023-08-02 08:51] LABS: BASO # 0.1 10^3/uL (0.0-0.2); BASO % 0.7 % (0.0-1.0); EOS % 0.5 % (0.0-3.0); LYMPH # 2.7 10^3/uL (1.5-5.0); LYMPH % 31.1 % (24.0-44.0); MONO # 1.2 10^3/uL (0.0-0.8); MONO % 13.5 % (2.0-8.0); NEUTROPHILS # 4.6 10^3/uL (1.5-8.5); NEUTROPHILS % 53.8 % (36.0-66.0)
[2023-08-02] MEDS ORDERED: VENLAFAXINE **XR** 75MG CAPSULE PO SCH (09:00)
[2023-08-02] MEDS ORDERED: LEVOTHYROXINE 100MCG TABLET (0.1MG) PO SCH (09:00)
[2023-08-02] MEDS ORDERED: TRIHEXYPHENIDYL 2 MG TAB PO SCH (09:00)
[2023-08-02] MEDS ORDERED: TAMSULOSIN 0.4 MG CAP PO SCH (09:00)
[2023-08-02] MEDS ORDERED: clonazePAM 0.5 MG TAB PO SCH (09:00)
[2023-08-02] MEDS ORDERED: lisinopriL 5 MG TAB PO SCH (09:00)
[2023-08-02] MEDS ORDERED: FINASTERIDE 5MG TAB PO SCH (09:00)
[2023-08-02] MEDS ORDERED: VENLAFAXINE **XR** 37.5 MG CAPSULE PO SCH (09:00)
[2023-08-02] MEDS ORDERED: MULTIVITAMINS/MINERALS THERAP 1 TAB PO SCH (09:00)
[2023-08-02] MEDS ORDERED: PANTOPRAZOLE 40MG TAB (PROTONIX) PO SCH (09:00)
[2023-08-02] MEDS: DIVALPROEX 500MG *ER* TAB PO SCH ×2 (10:02→20:13)
[2023-08-02] MEDS: AMANTADINE 100MG TABLET PO SCH ×2 (10:04→20:13)
[2023-08-02] MEDS ORDERED: clonazePAM 0.5 MG TAB PO PRN (10:55)
[2023-08-02] MEDS ORDERED: traZODone 50 MG TAB PO PRN (20:55)
[2023-08-02] MEDS ORDERED: MAALOX 30 ML SUSP *UDC PO PRN (20:55)
[2023-08-02] MEDS ORDERED: MOM 30ML SUSPENSION UDC PO PRN (20:55)
[2023-08-02] MEDS ORDERED: IBUPROFEN 400MG TAB PO PRN (20:55)
[2023-08-02] MEDS ORDERED: diphenhydrAMINE 25MG CAP PO PRN (20:55)
[2023-08-02] MEDS ORDERED: ACETAMINOPHEN TAB 650MG DOSE (2X325MG) PO PRN (20:55)
[2023-08-02] MEDS ORDERED: OLANZapine 10 MG TAB PO SCH (21:00)
[2023-08-02] MEDS ORDERED: cloNIDine 0.1MG TABLET PO SCH (21:00)
[2023-08-02 23:21] VITALS: BP 114/71; TEMP 96.8; O2SAT 97
[2023-08-03 05:45] VITALS: BP 101/62; TEMP 97.6; O2SAT 96
[2023-08-03 09:03] VITALS: BP 112/78
[2023-08-03] MEDS ORDERED: DOCUSATE SODIUM 100MG CAPSULE PO PRN (09:25)
[2023-08-03] MEDS: TAMSULOSIN 0.4 MG CAP PO SCH (09:47)
[2023-08-03] MEDS: lisinopriL 5 MG TAB PO SCH (09:48)
[2023-08-03] MEDS: LEVOTHYROXINE 100MCG TABLET (0.1MG) PO SCH (09:48)
[2023-08-03] MEDS: MULTIVITAMINS/MINERALS THERAP 1 TAB PO SCH (09:49)
[2023-08-03] MEDS: PANTOPRAZOLE 40MG TAB (PROTONIX) PO SCH (09:50)
[2023-08-03] MEDS: TIOTROPIUM INHALER/CAPSULE (SPIRIVA) INH SCH (09:50)
[2023-08-03] MEDS: clonazePAM 0.5 MG TAB PO SCH ×2 (09:50→20:29)
[2023-08-03] MEDS: DIVALPROEX 500MG *ER* TAB PO SCH ×2 (09:50→20:30)
[2023-08-03 10:20] LABS: BASO # 0.1 10^3/uL (0.0-0.2); BASO % 0.6 % (0.0-1.0); EOS # 0.1 10^3/uL (0.0-0.5); EOS % 0.6 % (0.0-3.0); HEMATOCRIT 44.6 % (42.0-52.0); HEMOGLOBIN 14.9 g/dl (13.5-17.5); LYMPH # 2.3 10^3/uL (1.5-5.0); LYMPH % 27.6 % (24.0-44.0); MEAN CORPUSCULAR HGB CONC 33.4 g/dl (32.0-36.5); MEAN CORPUSCULAR VOLUME 95.9 fl (80.0-96.0); MONO % 12.4 % (2.0-8.0); NEUTROPHILS # 4.9 10^3/uL (1.5-8.5); NEUTROPHILS % 58.2 % (36.0-66.0); PLATELET COUNT, AUTOMATED 185 10^3/uL (150-450); RED BLOOD COUNT 4.65 10^6/uL (4.30-6.10); WHITE BLOOD COUNT 8.4 10^3/uL (4.0-10.0)
[2023-08-03] MEDS: VENLAFAXINE **XR** 75MG CAPSULE PO SCH (10:57)
[2023-08-03] MEDS: VENLAFAXINE **XR** 37.5 MG CAPSULE PO SCH (10:57)
[2023-08-03] MEDS: AMANTADINE 100MG TABLET PO SCH ×2 (11:34→20:29)
[2023-08-03] MEDS: FINASTERIDE 5MG TAB PO SCH (11:34)
[2023-08-03] MEDS: TRIHEXYPHENIDYL 2 MG TAB PO SCH (11:34)
[2023-08-03 18:47] VITALS: BP 135/74; TEMP 98.4; O2SAT 97
[2023-08-03] MEDS: OLANZapine 10 MG TAB PO SCH (20:29)
[2023-08-03] MEDS: cloNIDine 0.1MG TABLET PO SCH (20:31)
[2023-08-04 05:40] VITALS: BP 98/66; TEMP 97.5; O2SAT 96
[2023-08-04] MEDS: LEVOTHYROXINE 100MCG TABLET (0.1MG) PO SCH (05:45)
[2023-08-04 07:21] LABS: CHOLESTEROL RISK RATIO 3.37 (<5); HDL CHOLESTEROL 44.7 MG/DL (>40); LDL CHOLESTEROL 78.1 MG/DL (<100); NON-HDL-C 106.3 MG/DL
[2023-08-04] MEDS ORDERED: VENLAFAXINE **XR** 75MG CAPSULE PO SCH (09:00)
[2023-08-04] MEDS ORDERED: VENLAFAXINE **XR** 37.5 MG CAPSULE PO SCH (09:00)
[2023-08-04] MEDS: MULTIVITAMINS/MINERALS THERAP 1 TAB PO SCH (09:06)
[2023-08-04] MEDS: VENLAFAXINE **XR** 75MG CAPSULE PO SCH (09:06)
[2023-08-04] MEDS: VENLAFAXINE **XR** 37.5 MG CAPSULE PO SCH (09:06)
[2023-08-04] MEDS: clonazePAM 0.5 MG TAB PO SCH ×2 (09:06→20:29)
[2023-08-04] MEDS: TIOTROPIUM INHALER/CAPSULE (SPIRIVA) INH SCH (09:06)
[2023-08-04] MEDS: AMANTADINE 100MG TABLET PO SCH ×2 (09:06→20:30)
[2023-08-04] MEDS: TAMSULOSIN 0.4 MG CAP PO SCH (09:07)
[2023-08-04] MEDS: DIVALPROEX 500MG *ER* TAB PO SCH ×2 (09:07→20:29)
[2023-08-04] MEDS: lisinopriL 5 MG TAB PO SCH (09:07)
[2023-08-04] MEDS: PANTOPRAZOLE 40MG TAB (PROTONIX) PO SCH (09:07)
[2023-08-04] MEDS: TRIHEXYPHENIDYL 2 MG TAB PO SCH (09:08)
[2023-08-04] MEDS: FINASTERIDE 5MG TAB PO SCH (09:08)
[2023-08-04 16:12] VITALS: BP 121/73; TEMP 98.1
[2023-08-04] MEDS: cloNIDine 0.1MG TABLET PO SCH (20:29)
[2023-08-04] MEDS: OLANZapine 10 MG TAB PO SCH (20:30)
[2023-08-05] MEDS: LEVOTHYROXINE 100MCG TABLET (0.1MG) PO SCH (05:55)
[2023-08-05 06:21] VITALS: BP 128/75; TEMP 96.9; O2SAT 96
[2023-08-05] MEDS: VENLAFAXINE **XR** 37.5 MG CAPSULE PO SCH (08:44)
[2023-08-05] MEDS: VENLAFAXINE **XR** 75MG CAPSULE PO SCH (08:44)
[2023-08-05] MEDS: TIOTROPIUM INHALER/CAPSULE (SPIRIVA) INH SCH (08:44)
[2023-08-05] MEDS: TRIHEXYPHENIDYL 2 MG TAB PO SCH (08:44)
[2023-08-05 08:45] VITALS: BP 118/66
[2023-08-05] MEDS: lisinopriL 5 MG TAB PO SCH (08:45)
[2023-08-05] MEDS: TAMSULOSIN 0.4 MG CAP PO SCH (08:45)
[2023-08-05] MEDS: MULTIVITAMINS/MINERALS THERAP 1 TAB PO SCH (08:45)
[2023-08-05] MEDS: DIVALPROEX 500MG *ER* TAB PO SCH (08:45)
[2023-08-05] MEDS: AMANTADINE 100MG TABLET PO SCH (08:45)
[2023-08-05] MEDS: FINASTERIDE 5MG TAB PO SCH (08:45)
[2023-08-05] MEDS: clonazePAM 0.5 MG TAB PO SCH (08:45)
[2023-08-05] MEDS: PANTOPRAZOLE 40MG TAB (PROTONIX) PO SCH (08:45)
[2023-08-05] MEDS ORDERED: CLON0.5T2 PO (10:33)
[2023-08-05] MEDS ORDERED: CLOZ100T5 PO ×2 (10:33)
[2023-08-05] MEDS ORDERED: OLAN1TAB16 PO (10:33)
[2023-08-05] MEDS ORDERED: ZYPR10TA PO (10:33)
[2023-08-05] MEDS ORDERED: CLONI1TA PO (10:33)
[2023-08-05] MEDS ORDERED: VENL37.52 PO (10:33)
[2023-08-05] MEDS ORDERED: VENL150C43 PO (10:33)
[2023-08-05] MEDS ORDERED: DIVA500T9 PO (10:33)
[2023-08-06 18:07] LABS: CLOZAPINE 1 350 ng/mL (350-600); CLOZAPINE 2 165 ng/mL (Not Estab.); CLOZAPINE 3 515 ng/mL (.)
== END 2023-08-05 11:25 | disposition home or self-care (01) | DRG 885 ==
LOC: M ED 21:07 → M ED INP 08-02 20:55 → M PSY 08-02 23:01
PROVIDERS: ADMIT Student in an Organized Health Care Education/Training Program; ATTEND Student in an Organized Health Care Education/Training Program
DX: F25.1 Schizoaffective disorder, depressive type (principal); R45.851 Suicidal ideations; E78.5 Hyperlipidemia, unspecified; I10 Essential (primary) hypertension; E03.9 Hypothyroidism, unspecified; J44.9 Chronic obstructive pulmonary disease, unspecified; N40.0 Benign prostatic hyperplasia without lower urinary tract symptoms; F17.210 Nicotine dependence, cigarettes, uncomplicated; K21.9 Gastro-esophageal reflux disease without esophagitis; Z81.8 Family history of other mental and behavioral disorders; Z91.52 Personal history of nonsuicidal self-harm; Z91.51 Personal history of suicidal behavior; Z79.890 Hormone replacement therapy; Z79.899 Other long term (current) drug therapy; Z88.8 Allergy status to other drugs, medicaments and biological substances

== ENCOUNTER 2023-11-22 12:06 | Inpatient (IN) | payer MEDICARE, MEDICAID ==
[~2023-11-22] VITALS: Ht 177.8 cm; Wt 78.1 kg
[~2023-11-22 12:06] MED LIST changes: -ASPI-161 PO; +ASPI-615 PO; +CLON0.5T17 PO; +DEPA500T2 PO; -MIRA1POW3 PO; +MIRA33506 PO; +OLAN1TAB16 PO; +OLAN1TAB20 PO
[2023-11-22] MEDS ORDERED: AMLO1TAB24 PO (12:17)
[2023-11-22] MEDS ORDERED: TIOT18CA INH (12:17)
[2023-11-22] MEDS ORDERED: TAMS1CAP17 PO (12:17)
[2023-11-22] MEDS ORDERED: LORA1TAB23 PO (12:17)
[2023-11-22] MEDS ORDERED: ATOR1TAB19 PO (12:17)
[2023-11-22] MEDS: LORazepam 1 MG TAB PO STA (13:08)
[2023-11-22] MEDS ORDERED: MED REC IN PROGRESS XX SCH (13:20)
[2023-11-22 13:22] LABS: HEMATOCRIT 44.3 % (42.0-52.0); HEMOGLOBIN 14.9 g/dl (13.5-17.5); MEAN CORPUSCULAR HGB CONC 33.6 g/dl (32.0-36.5); MEAN CORPUSCULAR VOLUME 95.1 fl (80.0-96.0); PLATELET COUNT, AUTOMATED 212 10^3/uL (150-450); RED BLOOD COUNT 4.66 10^6/uL (4.30-6.10); WHITE BLOOD COUNT 10.3 10^3/uL (4.0-10.0)
[2023-11-22 13:48] LABS: ETHYL ALCOHOL (ETHANOL) < 0.003 % (0.000-0.010)
[2023-11-22 13:50] LABS: ALKALINE PHOSPHATASE 149 U/L (46-116); ALT/SGPT 21 U/L (7.0-40); AST/SGOT 16 U/L (<34); BILIRUBIN,DIRECT 0.2 MG/DL (<0.4); BILIRUBIN,TOTAL 0.6 MG/DL (0.3-1.2); BLOOD UREA NITROGEN 14 MG/DL (9-23); CALCIUM LEVEL 9.7 MG/DL (8.3-10.6); CARBON DIOXIDE LEVEL 26 MMOL/L (20-31); CHLORIDE LEVEL 106 MMOL/L (98-107); CREATININE FOR GFR 1.11 MG/DL (0.70-1.30); GLOMERULAR FILTRATION RATE > 60.0 (>49); GLUCOSE, FASTING 99 MG/DL (74-106); SALICYLATE LEVEL < 3.0 MG/DL (<30); SODIUM LEVEL 141 MMOL/L (136-145); TOTAL PROTEIN 7.2 G/DL (5.7-8.2)
[2023-11-22 13:52] LABS: THYROID STIMULATING HORMONE 1.847 uIU/ML (0.55-4.78)
[2023-11-22 15:01] LABS: AMPHETAMINES LEVEL URINE NEGATIVE (NEGATIVE); BARBITURATES URINE NEGATIVE (NEGATIVE); BENZODIAZEPINES URINE NEGATIVE (NEGATIVE); CANNABINOIDS URINE NEGATIVE (NEGATIVE); COCAINE METABOLITE URINE NEGATIVE (NEGATIVE); METHADONE URINE NEGATIVE (NEGATIVE); OPIATES URINE NEGATIVE (NEGATIVE); PHENCYCLIDINE URINE NEGATIVE (NEGATIVE)
[2023-11-22] MEDS ORDERED: MAALOX 30 ML SUSP *UDC PO PRN (20:35)
[2023-11-22 21:30] VITALS: BP 110/77; TEMP 97.1; O2SAT 16
[2023-11-22] MEDS: diphenhydrAMINE 25MG CAP PO PRN (22:39)
[2023-11-22] MEDS: traZODone 50 MG TAB PO PRN (22:39)
[2023-11-23 06:30] VITALS: BP 119/75; TEMP 97.4; O2SAT 16
[2023-11-23] MEDS ORDERED: NICO2GUM MT (07:03)
[2023-11-23] MEDS ORDERED: D200CAP PO (07:03)
[2023-11-23] MEDS ORDERED: VENL75CA2 PO (07:03)
[2023-11-23] MEDS ORDERED: SENN8.6T28 PO (07:03)
[2023-11-23] MEDS ORDERED: ATOR1TAB19 PO (07:08)
[2023-11-23] MEDS ORDERED: CLOZ25TA6 PO (07:08)
[2023-11-23] MEDS ORDERED: CLOZ100T5 PO ×2 (07:08→15:53)
[2023-11-23] MEDS ORDERED: LITH150C PO (07:08)
[2023-11-23] MEDS: TIOTROPIUM INHALER/CAPSULE (SPIRIVA) INH SCH (08:00)
[2023-11-23] MEDS: LORazepam 1 MG TAB PO ONE (09:10)
[2023-11-23] MEDS ORDERED: ALBUTEROL 90 MCG/ACT 8GM HFA INHALER INH PRN (10:50)
[2023-11-23] MEDS ORDERED: OLAN5ZYD SL (11:17)
[2023-11-23] MEDS ORDERED: HOME MED LIST COMPLETE! XX SCH (11:20)
[2023-11-23 11:22] LABS: BASO # 0.1 10^3/uL (0.0-0.2); BASO % 0.5 % (0.0-1.0); EOS % 0.4 % (0.0-3.0); HEMATOCRIT 43.5 % (42.0-52.0); HEMOGLOBIN 13.9 g/dl (13.5-17.5); MEAN CORPUSCULAR HEMOGLOBIN 31.2 pg (27.0-33.0); MEAN CORPUSCULAR VOLUME 97.8 fl (80.0-96.0); MONO # 1.1 10^3/uL (0.0-0.8); MONO % 9.5 % (2.0-8.0); NEUTROPHILS # 7.9 10^3/uL (1.5-8.5); NEUTROPHILS % 71.2 % (36.0-66.0); PLATELET COUNT, AUTOMATED 206 10^3/uL (150-450); RED BLOOD COUNT 4.45 10^6/uL (4.30-6.10); WHITE BLOOD COUNT 11.1 10^3/uL (4.0-10.0)
[2023-11-23] MEDS ORDERED: SENNA 8.6 MG TAB (SENOKOT) PO PRN (11:30)
[2023-11-23] MEDS ORDERED: MIRALAX *UNIT DOSE* 17GM PACKET PO PRN (11:30)
[2023-11-23] MEDS ORDERED: BISACODYL 5MG TAB PO PRN (11:30)
[2023-11-23] MEDS: LEVOTHYROXINE 100MCG TABLET (0.1MG) PO SCH (12:02)
[2023-11-23] MEDS: VENLAFAXINE **XR** 75MG CAPSULE PO SCH (12:45)
[2023-11-23] MEDS: AMANTADINE 100MG TABLET PO SCH (12:46)
[2023-11-23] MEDS: FINASTERIDE 5MG TAB PO SCH (12:46)
[2023-11-23] MEDS: amLODIPine 5 MG TAB PO SCH (12:46)
[2023-11-23] MEDS: TAMSULOSIN 0.4 MG CAP PO SCH (12:46)
[2023-11-23] MEDS: MULTIVITAMINS/MINERALS THERAP 1 TAB PO SCH (12:46)
[2023-11-23] MEDS: VITAMIN D 1,000 INTERNATIONAL UNITS TABLET PO SCH (12:47)
[2023-11-23] MEDS: PANTOPRAZOLE 40MG TAB (PROTONIX) PO SCH (12:47)
[2023-11-23 17:55] VITALS: BP 119/79; TEMP 97.4; O2SAT 16
[2023-11-23] MEDS: ATORVASTATIN 10 MG TAB PO SCH (20:02)
[2023-11-23] MEDS: DOCUSATE SODIUM 100MG CAPSULE PO PRN (20:02)
[2023-11-23] MEDS: LITHIUM CARBONATE 150 MG CAP PO SCH (20:02)
[2023-11-23] MEDS: LORazepam 1 MG TAB PO SCH (20:02)
[2023-11-23] MEDS: cloNIDine 0.1MG TABLET PO SCH (20:02)
[2023-11-23] MEDS: OLANZapine 10 MG TAB PO SCH (20:02)
[2023-11-24 06:13] VITALS: BP 105/65; TEMP 97.9; O2SAT 97
[2023-11-24 08:17] VITALS: BP 130/82
[2023-11-24] MEDS: OLANZapine ORAL DISINTEGRATING TAB 5MG PO PRN (08:23)
[2023-11-24] MEDS: MOM 30ML SUSPENSION UDC PO PRN (09:56)
[2023-11-24 18:20] VITALS: BP 150/84; TEMP 97.5
[2023-11-25 06:34] VITALS: TEMP 97; O2SAT 96
[2023-11-25] MEDS: NICOTINE POLACRILEX 2 MG GUM PO PRN (11:04)
[2023-11-25] MEDS: IBUPROFEN 400MG TAB PO PRN (14:35)
[2023-11-25 16:19] VITALS: BP 139/82; TEMP 98; O2SAT 98
[2023-11-26 06:30] VITALS: BP 115/69; TEMP 97.2; O2SAT 96
[2023-11-26] MEDS: ACETAMINOPHEN TAB 650MG DOSE (2X325MG) PO PRN (15:19)
[2023-11-26 16:18] VITALS: BP 145/84; TEMP 97.6; O2SAT 98
[2023-11-27 05:46] VITALS: BP 119/75; TEMP 97.6; O2SAT 95
[2023-11-27 18:19] VITALS: BP 140/88; TEMP 97.3
[2023-11-28 05:50] VITALS: BP 112/75; TEMP 97.9; O2SAT 96
[2023-11-28 18:36] VITALS: BP 157/87; TEMP 97.7
[2023-11-29 06:17] VITALS: BP 106/65; TEMP 97.6
[2023-11-29 17:50] VITALS: BP 111/77; TEMP 97.6; O2SAT 98
[2023-11-30 08:57] VITALS: BP 120/86
[2023-11-30 16:14] VITALS: BP 125/79; TEMP 98.3; O2SAT 97
[2023-12-01 06:35] VITALS: BP 125/69; TEMP 97.3; O2SAT 96
[2023-12-01 08:17] VITALS: BP 125/89
[2023-12-01 17:12] VITALS: BP 122/89; TEMP 97
[2023-12-02 06:50] VITALS: BP 125/86; TEMP 98.7; O2SAT 97
[2023-12-02 16:59] VITALS: BP 142/87; TEMP 97; O2SAT 98
[2023-12-03 06:31] VITALS: BP 123/68; TEMP 98.1; O2SAT 95
[2023-12-03 15:58] VITALS: BP 110/68; TEMP 98.2; O2SAT 16
[2023-12-04 06:29] VITALS: BP 109/67; TEMP 97; O2SAT 96
[2023-12-04 15:53] VITALS: BP 107/75; TEMP 97.7; O2SAT 98
[2023-12-05 06:41] VITALS: BP 116/80; TEMP 97.6; O2SAT 97
[2023-12-05 16:07] VITALS: BP 112/68; TEMP 98.2; O2SAT 98
[2023-12-06 06:33] VITALS: BP 119/76; TEMP 97.3; O2SAT 97
[2023-12-06 08:24] VITALS: BP 104/71
[2023-12-06 18:32] VITALS: BP 124/72; TEMP 97.4; O2SAT 97
[2023-12-07 06:11] VITALS: BP 100/68; TEMP 97.8; O2SAT 97
[2023-12-07 18:35] VITALS: BP 124/70; TEMP 97.9; O2SAT 98
[2023-12-08 06:03] VITALS: BP 104/62; TEMP 98; O2SAT 97
[2023-12-08 08:40] VITALS: BP 112/77
[2023-12-08 16:40] VITALS: BP 128/70; TEMP 97.7
[2023-12-09 06:00] VITALS: BP 132/71; TEMP 98.5
[2023-12-09 15:53] VITALS: BP 134/80; TEMP 97.4; O2SAT 96
[2023-12-10 06:12] VITALS: BP 136/59; TEMP 97.5
[2023-12-10 16:22] VITALS: BP 116/77; TEMP 97.7; O2SAT 97
[2023-12-11 06:12] VITALS: BP 115/71; TEMP 97.8; O2SAT 96
[2023-12-11 16:10] VITALS: BP 136/84; TEMP 97.8; O2SAT 97
[2023-12-12 06:15] VITALS: BP 111/77; TEMP 97.7; O2SAT 95
[2023-12-12 15:44] VITALS: BP 130/80; TEMP 97.5; O2SAT 98
[2023-12-13 06:06] VITALS: BP 114/73; TEMP 97.5; O2SAT 96
[2023-12-13 08:00] VITALS: BP 127/81
[2023-12-13 16:57] VITALS: BP 140/84; TEMP 97.2
[2023-12-14 06:28] VITALS: BP 122/75; TEMP 97.5; O2SAT 98
[2023-12-14 08:07] VITALS: BP 122/80
[2023-12-14 19:05] VITALS: BP 125/77; TEMP 97.4; O2SAT 97
[2023-12-15 06:34] VITALS: BP 112/76; TEMP 97.5; O2SAT 95
[2023-12-15 08:12] VITALS: BP 132/79
[2023-12-15 19:00] VITALS: BP 117/66; TEMP 97.6
[2023-12-16 06:05] VITALS: BP 95/66; TEMP 98.6; O2SAT 97
[2023-12-16 15:54] VITALS: BP 139/77; TEMP 97
[2023-12-17 06:39] VITALS: BP 118/73; TEMP 98.5
[2023-12-17 06:47] LABS: BASO # 0.1 10^3/uL (0.0-0.2); BASO % 0.6 % (0.0-1.0); EOS # 0.1 10^3/uL (0.0-0.5); EOS % 0.7 % (0.0-3.0); HEMATOCRIT 40.9 % (42.0-52.0); HEMOGLOBIN 13.5 g/dl (13.5-17.5); LYMPH % 30.1 % (24.0-44.0); MEAN CORPUSCULAR HEMOGLOBIN 31.8 pg (27.0-33.0); MEAN CORPUSCULAR VOLUME 96.2 fl (80.0-96.0); MONO % 10.5 % (2.0-8.0); NEUTROPHILS # 5.7 10^3/uL (1.5-8.5); NEUTROPHILS % 57.8 % (36.0-66.0); PLATELET COUNT, AUTOMATED 200 10^3/uL (150-450); RED BLOOD COUNT 4.25 10^6/uL (4.30-6.10); WHITE BLOOD COUNT 9.9 10^3/uL (4.0-10.0)
[2023-12-17 16:11] VITALS: BP 140/74; TEMP 97.5; O2SAT 98
[2023-12-18 06:15] VITALS: BP 113/75; TEMP 98.4; O2SAT 96
[2023-12-18 16:40] VITALS: BP 140/90; TEMP 97.7; O2SAT 95
[2023-12-19 06:30] VITALS: BP 121/80; TEMP 97.4; O2SAT 98
[2023-12-19 16:54] VITALS: BP 116/75; TEMP 97.9; O2SAT 98
[2023-12-20 06:27] VITALS: BP 115/68; TEMP 97.7; O2SAT 96
[2023-12-20 08:59] VITALS: BP 126/74
[2023-12-20 18:07] VITALS: BP 139/63; TEMP 97.9; O2SAT 96
[2023-12-21 06:34] VITALS: BP 101/72; TEMP 97.7; O2SAT 95
[2023-12-21 18:08] VITALS: BP 123/70; TEMP 98.1
[2023-12-22 06:13] VITALS: BP 106/65; TEMP 97.2; O2SAT 95
[2023-12-22 08:06] VITALS: BP 116/66
[2023-12-22 18:12] VITALS: BP 119/71; TEMP 97.7
[2023-12-22 20:06] VITALS: BP 131/75
[2023-12-23 06:10] VITALS: BP 125/81; TEMP 97.4; O2SAT 95
[2023-12-23 17:21] VITALS: BP 139/84; TEMP 97.1
[2023-12-24 06:32] VITALS: BP 125/75; TEMP 98; O2SAT 96
[2023-12-24 16:06] VITALS: BP 136/85; TEMP 97.1; O2SAT 99
[2023-12-25 06:59] VITALS: BP 105/63; TEMP 97.3; O2SAT 95
[2023-12-25 16:33] VITALS: BP 114/78; TEMP 97.4; O2SAT 98
[2023-12-26 06:33] VITALS: BP 108/70; TEMP 97.2; O2SAT 96
[2023-12-26 15:31] VITALS: BP 127/77; TEMP 97.9; O2SAT 97
[2023-12-27 06:33] VITALS: BP 111/81; TEMP 98.5; O2SAT 97
[2023-12-27 08:02] VITALS: BP 118/80
[2023-12-27 18:25] VITALS: BP 147/87; TEMP 97.9; O2SAT 98
[2023-12-27 19:57] VITALS: BP 101/79
[2023-12-28 06:09] VITALS: BP 129/78; TEMP 96.9; O2SAT 96
[2023-12-28 18:34] VITALS: BP 118/77; TEMP 97.6; O2SAT 97
[2023-12-29 06:50] VITALS: BP 126/81; TEMP 97; O2SAT 96
[2023-12-29 18:25] VITALS: BP 154/75; TEMP 98
[2023-12-30 06:28] VITALS: BP 109/69; TEMP 97.3; O2SAT 95
[2023-12-30 18:01] VITALS: BP 137/80; TEMP 97.5; O2SAT 98
[2023-12-31 06:31] VITALS: BP 141/85; TEMP 97.5; O2SAT 95
[2023-12-31 16:25] VITALS: BP 137/81; TEMP 97.8; O2SAT 96
[2023-12-31] MEDS: DOCUSATE SODIUM 100MG CAPSULE PO SCH (20:00)
[2024-01-01 06:48] VITALS: BP 112/65; TEMP 97.1; O2SAT 95
[2024-01-01] MEDS ORDERED: DOCUSATE SODIUM 100MG CAPSULE PO PRN (09:45)
[2024-01-01 16:19] VITALS: BP 126/79; TEMP 97.6; O2SAT 96
[2024-01-02 06:40] VITALS: BP 143/69; TEMP 96.6; O2SAT 95
[2024-01-02 16:09] VITALS: BP 128/79; TEMP 97.7; O2SAT 96
[2024-01-03 06:07] VITALS: BP 103/72; TEMP 97.5; O2SAT 96
[2024-01-03 17:15] VITALS: BP 116/72; TEMP 97.5; O2SAT 97
[2024-01-04 06:17] VITALS: BP 136/70; TEMP 97.9; O2SAT 95
[2024-01-04 15:52] VITALS: BP 140/66; TEMP 98; O2SAT 98
[2024-01-05 06:23] VITALS: BP 102/73; TEMP 98.3; O2SAT 100
[2024-01-05 08:13] VITALS: BP 124/71
[2024-01-05 16:17] VITALS: BP 106/66; TEMP 97.7; O2SAT 94
[2024-01-06 06:18] VITALS: BP 127/74; TEMP 96.8; O2SAT 96
[2024-01-06 17:09] VITALS: BP 140/80; TEMP 97; O2SAT 99
[2024-01-06 19:47] VITALS: BP 130/79
[2024-01-07 06:29] VITALS: BP 121/72; TEMP 98.6; O2SAT 95
[2024-01-07 15:07] VITALS: BP 140/84; TEMP 97.6; O2SAT 95
[2024-01-08 06:44] VITALS: BP 108/71; TEMP 96.5; O2SAT 96
[2024-01-08 16:14] VITALS: BP 114/77; TEMP 98.2; O2SAT 98
[2024-01-09 06:36] VITALS: BP 114/65; TEMP 97.1; O2SAT 96
[2024-01-09 16:22] VITALS: BP 129/85; TEMP 98.3; O2SAT 95
[2024-01-09 19:54] VITALS: BP 144/82
[2024-01-10 06:34] VITALS: BP 112/70; TEMP 97.1; O2SAT 96
[2024-01-10 17:40] VITALS: BP 130/81; TEMP 97.6; O2SAT 98
[2024-01-10 19:46] VITALS: BP 125/74
[2024-01-11 06:24] VITALS: BP 117/72; TEMP 97.4; O2SAT 97
[2024-01-11 17:31] VITALS: BP 133/73; TEMP 97.1; O2SAT 96
[2024-01-12 08:13] VITALS: BP 118/85
[2024-01-12] MEDS: LIDOCAINE 5% (LIDODERM) PATCH TD SCH (12:18)
[2024-01-12 17:05] VITALS: BP 119/76; TEMP 98.1
[2024-01-13 06:29] VITALS: BP 121/71; TEMP 97.7; O2SAT 98
[2024-01-13 14:48] VITALS: BP 132/83; TEMP 97.4; O2SAT 97
[2024-01-14 06:33] VITALS: BP 112/70; TEMP 97.4; O2SAT 97
[2024-01-14 16:03] VITALS: BP 132/75; TEMP 97.7; O2SAT 97
[2024-01-14 19:45] VITALS: BP 145/65
[2024-01-15 06:23] VITALS: BP 107/73; TEMP 97.2; O2SAT 97
[2024-01-15 08:03] LABS: BASO # 0.1 10^3/uL (0.0-0.2); BASO % 0.6 % (0.0-1.0); EOS # 0.1 10^3/uL (0.0-0.5); EOS % 0.7 % (0.0-3.0); HEMATOCRIT 42.6 % (42.0-52.0); LYMPH # 2.5 10^3/uL (1.5-5.0); LYMPH % 25.7 % (24.0-44.0); MEAN CORPUSCULAR HEMOGLOBIN 30.9 pg (27.0-33.0); MEAN CORPUSCULAR HGB CONC 32.9 g/dl (32.0-36.5); MONO # 1.1 10^3/uL (0.0-0.8); MONO % 11.2 % (2.0-8.0); NEUTROPHILS # 6.1 10^3/uL (1.5-8.5); NEUTROPHILS % 61.3 % (36.0-66.0); PLATELET COUNT, AUTOMATED 201 10^3/uL (150-450); RED BLOOD COUNT 4.53 10^6/uL (4.30-6.10); WHITE BLOOD COUNT 9.9 10^3/uL (4.0-10.0)
[2024-01-15] MEDS: ALBUTEROL 90 MCG/ACT 8GM HFA INHALER INH PRN (16:03)
[2024-01-15 16:15] VITALS: BP 136/87; TEMP 98.3; O2SAT 98
[2024-01-15 19:46] VITALS: BP 122/75
[2024-01-16 06:41] VITALS: BP 127/74; TEMP 97.5; O2SAT 96
[2024-01-16 16:03] VITALS: BP 142/89; TEMP 97.6; O2SAT 98
[2024-01-17 06:44] VITALS: BP 141/79; TEMP 97.5; O2SAT 98
[2024-01-17 18:31] VITALS: BP 121/83; TEMP 97.7; O2SAT 97
[2024-01-18 06:21] VITALS: BP 106/65; TEMP 97.7; O2SAT 97
[2024-01-18 08:05] VITALS: BP 138/81
[2024-01-18 14:33] VITALS: BP 126/73; TEMP 99; O2SAT 94
[2024-01-19 06:45] VITALS: BP 124/78; TEMP 97.5; O2SAT 95
[2024-01-19 08:07] VITALS: BP 118/79
[2024-01-19 17:37] VITALS: BP 124/78; TEMP 97.4; O2SAT 97
[2024-01-19 19:50] VITALS: BP 121/84
[2024-01-20 06:23] VITALS: BP 117/69; TEMP 97.6; O2SAT 97
[2024-01-20 18:48] VITALS: BP 146/85; TEMP 97.7; O2SAT 97
[2024-01-20 19:40] VITALS: BP 123/74
[2024-01-21 06:14] VITALS: BP 129/74; TEMP 97.5
[2024-01-21 14:03] VITALS: BP 139/85; TEMP 97.8; O2SAT 98
[2024-01-22 06:21] VITALS: BP 121/65; TEMP 97.8; O2SAT 95
[2024-01-22 15:54] VITALS: BP 124/77; TEMP 98.6; O2SAT 97
[2024-01-23 06:29] VITALS: BP 120/69; TEMP 97; O2SAT 96
[2024-01-24 06:39] VITALS: BP 104/64; TEMP 98; O2SAT 99
[2024-01-24 08:03] VITALS: BP 131/78
[2024-01-24 18:23] VITALS: BP 142/89; TEMP 97.6
[2024-01-24 19:55] VITALS: BP 128/80
[2024-01-25 06:40] VITALS: BP 130/80; TEMP 97.4; O2SAT 96
[2024-01-25 08:04] VITALS: BP 128/78
[2024-01-25] MEDS ORDERED: BISAC5TA PO (12:36)
[2024-01-25] MEDS ORDERED: Multivitamins PO (12:36)
[2024-01-25] MEDS ORDERED: VENL75CA47 PO (12:36)
[2024-01-25] MEDS ORDERED: MIRA33506 PO (12:36)
[2024-01-25] MEDS ORDERED: PANT40TA29 PO (12:36)
[2024-01-25] MEDS ORDERED: AMLO1TAB24 PO (12:36)
[2024-01-25] MEDS ORDERED: VENTAER INH (12:36)
[2024-01-25] MEDS ORDERED: CLOZ100T5 PO ×2 (12:36)
[2024-01-25] MEDS ORDERED: CLOZ25TA6 PO (12:36)
[2024-01-25] MEDS ORDERED: TIOT18INH INH (12:36)
[2024-01-25] MEDS ORDERED: CLONI1TA PO (12:36)
[2024-01-25] MEDS ORDERED: FINA5TAB2 PO (12:36)
[2024-01-25] MEDS ORDERED: VITAD1000T PO (12:36)
[2024-01-25] MEDS ORDERED: FLOM0.4C39 PO (12:36)
[2024-01-25] MEDS ORDERED: LITH150C PO (12:36)
[2024-01-25] MEDS ORDERED: COLA100C5 PO (12:36)
[2024-01-25] MEDS ORDERED: OLAN1TAB20 PO (12:36)
[2024-01-25] MEDS ORDERED: ATOR1TAB19 PO (12:36)
[2024-01-25] MEDS ORDERED: OLAN5ZYD PO (12:36)
[2024-01-25] MEDS ORDERED: AMAN100T4 PO (12:36)
[2024-01-25] MEDS ORDERED: TRAZ-252 PO (12:36)
[2024-01-25] MEDS ORDERED: SENO8.6T5 PO (12:36)
[2024-01-25] MEDS ORDERED: LEVO100T5 PO (12:36)
[2024-01-25] MEDS ORDERED: ATIV1TAB7 PO (12:36)
[2024-01-25] MEDS ORDERED: NICO2GUM PO (12:36)
[2024-01-25] MEDS ORDERED: LIDO5TD TD (12:36)
[2024-01-25 15:39] VITALS: BP 137/87; TEMP 97.3
[2024-01-26 06:28] VITALS: BP 122/75; TEMP 97.6; O2SAT 95
[2024-01-26 08:07] VITALS: BP 132/94
== END 2024-01-26 09:59 | disposition home or self-care (01) | DRG 885 ==
LOC: M ED 12:06 → M ED INP 20:33 → M PSY 21:24
PROVIDERS: ADMIT Student in an Organized Health Care Education/Training Program; ATTEND Student in an Organized Health Care Education/Training Program
DX: F25.0 Schizoaffective disorder, bipolar type (principal); R45.851 Suicidal ideations; F41.9 Anxiety disorder, unspecified; E78.5 Hyperlipidemia, unspecified; I10 Essential (primary) hypertension; E03.9 Hypothyroidism, unspecified; J44.9 Chronic obstructive pulmonary disease, unspecified; N40.0 Benign prostatic hyperplasia without lower urinary tract symptoms; K21.9 Gastro-esophageal reflux disease without esophagitis; N52.9 Male erectile dysfunction, unspecified; K59.00 Constipation, unspecified; Z91.52 Personal history of nonsuicidal self-harm; Z91.51 Personal history of suicidal behavior; Z81.8 Family history of other mental and behavioral disorders; Z79.890 Hormone replacement therapy; Z79.899 Other long term (current) drug therapy; Z88.8 Allergy status to other drugs, medicaments and biological substances

== ENCOUNTER 2025-03-09 21:07 | Emergency (ER) | payer MEDICAID, MEDICARE ==
[~2025-03-09] VITALS: Ht 177.8 cm; Wt 70.5 kg
[~2025-03-09 21:07] MED LIST changes: +AMAN100T19 PO; +AMLO1TAB24 PO; -ARIP10TA32; +ARIP10TA63; +ATIV1TAB7 PO; +ATOR1TAB19 PO; +BISAC5TA PO; +CLOZ25TA6 PO; -CYCL5TAB PO; +CYCL5TAB4 PO; +D200CAP PO; -FLOM0.4C39 PO; +LIDO5TD TD; +LITH150C PO; +LORA1TAB23 PO; +Multivitamins PO; -OLAN15TA13 PO; +OLAN15TA69 PO; -OLAN20TA14 PO; +OLAN20TA53 PO; +OLAN5ZYD SL; +SENN8.6T28 PO; +SENO8.6T5 PO; +TAMS-18 PO; +TIOT18CA INH; +TIOT18INH INH; +TRAZ-252 PO; +VENL75CA2 PO; +VITAD1000T PO
[2025-03-09 22:15] LABS: HEMATOCRIT 39.7 % (42.0-52.0); HEMOGLOBIN 13.7 g/dl (13.5-17.5); MEAN CORPUSCULAR HEMOGLOBIN 31.2 pg (27.0-33.0); MEAN CORPUSCULAR HGB CONC 34.5 g/dl (32.0-36.5); MEAN CORPUSCULAR VOLUME 90.4 fl (80.0-96.0); PLATELET COUNT, AUTOMATED 176 10^3/uL (150-450); RED BLOOD COUNT 4.39 10^6/uL (4.30-6.10); WHITE BLOOD COUNT 7.6 10^3/uL (4.0-10.0)
[2025-03-09 22:35] LABS: ETHYL ALCOHOL (ETHANOL) < 0.003 % (0.000-0.010)
[2025-03-09 22:37] LABS: ALBUMIN 3.4 G/DL (3.2-5.2); ALKALINE PHOSPHATASE 133 U/L (40-129); ALT/SGPT 25 U/L (7.0-40); AST/SGOT 20 U/L (<34); BILIRUBIN,DIRECT 0.2 MG/DL (<0.4); BILIRUBIN,TOTAL 0.5 MG/DL (0.3-1.2); BLOOD UREA NITROGEN 10 MG/DL (9-23); CALCIUM LEVEL 9.1 MG/DL (8.3-10.6); CARBON DIOXIDE LEVEL 24 MMOL/L (20-31); CHLORIDE LEVEL 107 MMOL/L (98-107); CREATININE FOR GFR 0.92 MG/DL (0.70-1.30); GLOMERULAR FILTRATION RATE > 90.0 (>49); GLUCOSE, FASTING 97 MG/DL (74-106); POTASSIUM SERUM 3.8 MMOL/L (3.5-5.1); SALICYLATE LEVEL < 3.0 MG/DL (<30); SODIUM LEVEL 141 MMOL/L (136-145); TOTAL PROTEIN 6.3 G/DL (5.7-8.2)
[2025-03-09 22:38] LABS: LITHIUM LEVEL < 0.10 MMOL/L (1.0-1.20); THYROID STIMULATING HORMONE 2.354 uIU/ML (0.55-4.78)
[2025-03-09 23:41] LABS: AMPHETAMINES LEVEL URINE NEGATIVE (NEGATIVE); BARBITURATES URINE NEGATIVE (NEGATIVE); BENZODIAZEPINES URINE NEGATIVE (NEGATIVE); CANNABINOIDS URINE NEGATIVE (NEGATIVE); COCAINE METABOLITE URINE NEGATIVE (NEGATIVE); METHADONE URINE NEGATIVE (NEGATIVE); OPIATES URINE NEGATIVE (NEGATIVE); PHENCYCLIDINE URINE NEGATIVE (NEGATIVE)
[2025-03-10] MEDS: LORazepam 0.5 MG TAB PO ONE (03:58)
[2025-03-10] MEDS: LORazepam 2 MG TAB PO PRN (12:01)
[2025-03-10] MEDS ORDERED: MULTTAB61 PO (13:53)
[2025-03-10] MEDS ORDERED: VENL225T PO (13:53)
[2025-03-10] MEDS ORDERED: TREL1AER PO (13:53)
[2025-03-10] MEDS ORDERED: TRAZ-252 PO (13:53)
[2025-03-10] MEDS ORDERED: ATIV1TAB10 PO ×2 (13:53)
[2025-03-10] MEDS ORDERED: IBUP1TAB6 PO (13:53)
[2025-03-10] MEDS ORDERED: NICO2GUM5 PO (13:53)
[2025-03-10] MEDS ORDERED: CLOZ100T5 PO (13:53)
[2025-03-10] MEDS ORDERED: VITAD1000T PO (13:53)
[2025-03-10] MEDS ORDERED: PROP10TA56 PO (13:53)
[2025-03-10] MEDS ORDERED: MILKSUS3 PO (13:53)
[2025-03-10] MEDS ORDERED: HYDR50CA2 PO (13:53)
[2025-03-10] MEDS ORDERED: OLAN10TA12 PO (13:53)
[2025-03-10] MEDS ORDERED: CLONI1TA PO (13:53)
[2025-03-10] MEDS ORDERED: HOME MED LIST COMPLETE! XX SCH (13:55)
[2025-03-11] MEDS: LEVOTHYROXINE 100MCG TABLET (0.1MG) PO SCH (06:00)
[2025-03-11] MEDS ORDERED: traZODone 50 MG TAB PO PRN (08:20)
[2025-03-11] MEDS ORDERED: OLANZapine 10 MG TAB PO PRN (08:20)
[2025-03-11] MEDS: DOCUSATE SODIUM 100MG CAPSULE PO SCH (08:58)
[2025-03-11] MEDS: TAMSULOSIN 0.4 MG CAP PO SCH (08:58)
[2025-03-11] MEDS: MULTIVITAMINS/MINERALS THERAP 1 TAB PO SCH (08:58)
[2025-03-11] MEDS: FINASTERIDE 5MG TAB PO SCH (08:58)
[2025-03-11] MEDS: amLODIPine 5 MG TAB PO SCH (08:58)
[2025-03-11] MEDS: PANTOPRAZOLE 40MG TAB (PROTONIX) PO SCH (08:58)
[2025-03-11] MEDS: VENLAFAXINE **XR** 75MG CAPSULE PO SCH (08:59)
[2025-03-11] MEDS ORDERED: PILL CUTTER 1 EACH XX PRN (09:05)
[2025-03-11] MEDS: cloNIDine 0.1MG TABLET PO SCH (09:16)
[2025-03-11] MEDS: AMANTADINE 100MG TABLET PO SCH (09:16)
[2025-03-11] MEDS: PROPRANOLOL 10 MG TAB PO SCH (09:16)
[2025-03-11 20:17] VITALS: BP 107/68; TEMP 97.8; O2SAT 99
[2025-03-11] MEDS ORDERED: ATORVASTATIN 10 MG TAB PO SCH (21:00)
[2025-03-12] MEDS ORDERED: LORazepam 0.5 MG TAB PO SCH (09:00)
== END 2025-03-11 20:57 ==
LOC: M ED 21:07
DX: R45.851 Suicidal ideations (principal); R94.31 Abnormal electrocardiogram [ECG] [EKG]; N40.0 Benign prostatic hyperplasia without lower urinary tract symptoms; J44.9 Chronic obstructive pulmonary disease, unspecified; E03.9 Hypothyroidism, unspecified; F25.1 Schizoaffective disorder, depressive type; F17.210 Nicotine dependence, cigarettes, uncomplicated; Z88.8 Allergy status to other drugs, medicaments and biological substances; Z79.1 Long term (current) use of non-steroidal anti-inflammatories (NSAID); Z79.810 Long term (current) use of selective estrogen receptor modulators (SERMs); Z79.899 Other long term (current) drug therapy

== ENCOUNTER 2025-04-08 12:09 | Inpatient (IN) | payer MEDICARE ==
[~2025-04-08] VITALS: Ht 180.3 cm; Wt 75.1 kg
[~2025-04-08 12:09] MED LIST changes: -ABIL400I; -ABIL400I IM; +ARIP400S; +ARIP400S IM; +ATIV1TAB10 PO; +BENZ1TAB5 PO; -DEPA250T32 PO; +DIVA-41 PO; +DIVA-65 PO; -DIVA500T94 PO; +HYDR50CA2 PO; +LITH300T PO; +MILKSUS3 PO; +MULTTAB61 PO; +NICO2GUM5 PO; +OLAN10TA12 PO; +POLY17PO18 PO; +PROP10TA56 PO; +TREL1AER PO; +VENL225T PO
[2025-04-08] MEDS ORDERED: GABA-1171 PO (12:19)
[2025-04-08] MEDS ORDERED: ACETAMINOPHEN 325 MG TAB PO PRN (13:35)
[2025-04-08] MEDS ORDERED: MOM 30 ML SUSPENSION UDC PO PRN (13:35)
[2025-04-08 14:24] VITALS: BP 118/73; TEMP 97; O2SAT 97
[2025-04-08] MEDS: NICOTINE 14 MG/24 HR TRANSDERMAL TD SCH (20:07)
[2025-04-08] MEDS: PROPRANOLOL 10 MG TAB PO SCH (20:12)
[2025-04-08] MEDS: GABAPENTIN 100 MG CAP PO SCH (20:12)
[2025-04-08] MEDS: AMANTADINE 100 MG PO SCH (20:12)
[2025-04-08] MEDS: BENZTROPINE 1 MG TAB PO SCH (20:12)
[2025-04-08] MEDS: ATORVASTATIN 10 MG TAB PO SCH (20:12)
[2025-04-08] MEDS: traZODone 50 MG TAB PO PRN (20:13)
[2025-04-09] MEDS: LEVOTHYROXINE 100 MCG TABLET (0.1 MG) PO SCH (06:09)
[2025-04-09 06:58] VITALS: BP 109/73; TEMP 97.1; O2SAT 95
[2025-04-09 10:02] VITALS: BP 124/80
[2025-04-09] MEDS: amLODIPine 5 MG TAB PO SCH (10:06)
[2025-04-09] MEDS: TAMSULOSIN 0.4 MG CAP PO SCH (10:06)
[2025-04-09] MEDS: FINASTERIDE 5 MG TAB PO SCH (10:07)
[2025-04-09] MEDS: PANTOPRAZOLE 40MG TAB PO SCH (10:07)
[2025-04-09 16:18] VITALS: BP 129/84; TEMP 97.5; O2SAT 98
[2025-04-10 06:59] VITALS: BP 137/93; TEMP 97.2; O2SAT 98
[2025-04-10 08:26] VITALS: BP 128/78
[2025-04-10 15:28] VITALS: BP 109/78; TEMP 97.2; O2SAT 93
[2025-04-11 06:32] VITALS: BP 103/71; TEMP 97.1; O2SAT 97
[2025-04-11 14:48] VITALS: BP 138/70; TEMP 97; O2SAT 97
[2025-04-12 06:32] VITALS: BP 110/65; TEMP 97; O2SAT 95
[2025-04-12 13:36] LABS: BASO # 0.1 10^3/uL (0.0-0.2); BASO % 0.5 % (0.0-1.0); EOS # 0.1 10^3/uL (0.0-0.5); EOS % 0.5 % (0.0-3.0); LYMPH # 2.9 10^3/uL (1.5-5.0); LYMPH % 28.2 % (24.0-44.0); MONO # 1.1 10^3/uL (0.0-0.8); MONO % 10.6 % (2.0-8.0); NEUTROPHILS # 6.1 10^3/uL (1.5-8.5); NEUTROPHILS % 59.6 % (36.0-66.0); PLATELET COUNT, AUTOMATED 265 10^3/uL (150-450)
[2025-04-12] MEDS: TUBERCULIN PPD 5 UNITS/0.1 ML ID ONE (14:11)
[2025-04-12 15:14] VITALS: BP 129/88; TEMP 97; O2SAT 97
[2025-04-12] MEDS: LORazepam 1 MG TAB PO PRN (20:37)
[2025-04-13 06:26] VITALS: BP 92/65; TEMP 97.9; O2SAT 97
[2025-04-13 16:25] VITALS: BP 140/88; TEMP 96.6; O2SAT 97
[2025-04-14 08:20] VITALS: BP 98/68
[2025-04-14] MEDS: VENLAFAXINE **XR** 37.5 MG CAPSULE PO SCH (08:25)
[2025-04-14] MEDS: PPD DOCUMENTATION ENTRY MISC XX ONE (14:12)
[2025-04-14] MEDS: IBUPROFEN 400 MG TAB PO PRN (14:32)
[2025-04-14 15:36] VITALS: BP 125/80; TEMP 97; O2SAT 97
[2025-04-15 06:57] VITALS: BP 107/70; TEMP 97; O2SAT 96
[2025-04-15 09:24] VITALS: BP 125/88
[2025-04-15 15:32] VITALS: BP 128/67; TEMP 96.6; O2SAT 97
[2025-04-16 06:31] VITALS: BP 117/81; TEMP 97; O2SAT 100
[2025-04-16 17:37] VITALS: BP 137/89; TEMP 96.9; O2SAT 97
[2025-04-17 06:31] VITALS: BP 120/83; TEMP 97.6; O2SAT 96
[2025-04-17] MEDS: VENLAFAXINE **XR** 75MG CAPSULE PO SCH (08:13)
[2025-04-17 16:31] VITALS: BP 127/77; TEMP 97.5; O2SAT 95
[2025-04-17] MEDS: OLANZapine 5 MG TAB PO PRN (20:53)
[2025-04-18 06:23] VITALS: BP 133/79; TEMP 98; O2SAT 96
[2025-04-18 09:13] VITALS: BP 128/78
[2025-04-18 14:46] VITALS: BP 117/80; TEMP 97.4; O2SAT 97
[2025-04-19 06:40] VITALS: BP 129/79; TEMP 97; O2SAT 95
[2025-04-19] MEDS: VENLAFAXINE **XR** 75MG CAPSULE PO SCH (08:53)
[2025-04-19] MEDS: MAALOX 30 ML SUSP *UDC PO PRN (10:34)
[2025-04-19 15:01] VITALS: BP 129/81; TEMP 96.4; O2SAT 98
[2025-04-20 06:39] VITALS: BP 116/69; TEMP 98.4; O2SAT 97
[2025-04-20 15:01] VITALS: BP 111/70; TEMP 97.9; O2SAT 99
[2025-04-21 06:40] VITALS: BP 113/74; TEMP 97.6; O2SAT 95
[2025-04-21 08:45] VITALS: BP 110/69; TEMP 97.6; O2SAT 95
[2025-04-21 14:31] VITALS: BP 109/76; TEMP 97.7; O2SAT 98
[2025-04-22 06:36] VITALS: BP 106/68; TEMP 97.2; O2SAT 96
[2025-04-22 15:04] VITALS: BP 112/66; TEMP 97.8; O2SAT 96
[2025-04-23 06:19] VITALS: BP 121/77; TEMP 98.6; O2SAT 97
[2025-04-23 14:56] VITALS: BP 112/67; TEMP 97.9; O2SAT 97
[2025-04-24 06:18] VITALS: BP 117/80; TEMP 97.8; O2SAT 96
[2025-04-24 15:14] VITALS: BP 121/77; TEMP 96.6; O2SAT 97
[2025-04-25 06:40] VITALS: BP 152/73; TEMP 98.4; O2SAT 96
[2025-04-25 08:19] VITALS: BP 108/64
[2025-04-25 16:37] VITALS: BP 138/89; TEMP 96.8; O2SAT 96
[2025-04-26 06:29] VITALS: BP 137/85; TEMP 97.9; O2SAT 96
[2025-04-26 15:19] VITALS: BP 112/74; TEMP 97.3; O2SAT 99
[2025-04-27 06:55] VITALS: BP 99/65; TEMP 97.3; O2SAT 95
[2025-04-27 14:46] VITALS: BP 124/77; TEMP 97.7; O2SAT 99
[2025-04-28 06:37] VITALS: BP 114/71; TEMP 98; O2SAT 95
[2025-04-28 16:02] VITALS: BP 122/82; TEMP 96.7; O2SAT 98
[2025-04-29 06:21] VITALS: BP 119/77; TEMP 97.2; O2SAT 96
[2025-04-29 08:48] VITALS: BP 110/67
[2025-04-29 15:58] VITALS: BP 115/71; TEMP 97.5; O2SAT 96
[2025-04-30 06:00] VITALS: BP 127/69; TEMP 97.7; O2SAT 94
[2025-04-30 09:56] VITALS: BP 137/87
[2025-04-30] MEDS: VENLAFAXINE **XR** 75MG CAPSULE PO SCH (10:00)
[2025-04-30 16:36] VITALS: BP 107/73; TEMP 97.3; O2SAT 97
[2025-05-01 06:54] VITALS: BP 111/56; TEMP 96.5; O2SAT 96
[2025-05-01 15:41] VITALS: BP 128/69; TEMP 97.6; O2SAT 98
[2025-05-02 06:30] VITALS: BP 108/66; TEMP 98.1; O2SAT 97
[2025-05-02 15:35] VITALS: BP 129/69; TEMP 98.4; O2SAT 95
[2025-05-03 06:24] VITALS: BP 146/88; TEMP 96.8; O2SAT 95
[2025-05-03 15:39] VITALS: BP 120/81; TEMP 96.9; O2SAT 97
[2025-05-03 16:23] VITALS: BP 130/80; TEMP 97.7; O2SAT 96
[2025-05-04 06:24] VITALS: BP 117/75; TEMP 98.4; O2SAT 95
[2025-05-04 14:53] VITALS: BP 116/78; TEMP 97.2; O2SAT 100
[2025-05-05 06:25] VITALS: BP 115/72; TEMP 97.8; O2SAT 99
[2025-05-05 15:08] VITALS: BP 114/82; TEMP 97.2; O2SAT 98
[2025-05-06 06:18] VITALS: BP 106/64; TEMP 97.8; O2SAT 99
[2025-05-06 14:58] VITALS: BP 91/67; TEMP 97; O2SAT 97
[2025-05-06 18:53] VITALS: BP 120/82; TEMP 98.2; O2SAT 98
[2025-05-07 07:13] VITALS: BP 122/90; TEMP 98.8; O2SAT 96
[2025-05-07 08:37] VITALS: BP 156/66
[2025-05-07 15:37] VITALS: BP 110/71; TEMP 97.2; O2SAT 97
[2025-05-08 06:30] VITALS: BP 94/63; TEMP 97.6; O2SAT 96
[2025-05-08 08:29] VITALS: BP 122/88
[2025-05-08] MEDS: NICOTINE POLACRILEX 2 MG GUM PO PRN (12:58)
[2025-05-08 16:17] VITALS: BP 126/86; TEMP 97.9; O2SAT 98
[2025-05-09 06:42] VITALS: BP 103/66; TEMP 97.4; O2SAT 98
[2025-05-09 08:19] VITALS: BP 120/78
[2025-05-09 15:45] VITALS: BP 108/66; TEMP 96.8; O2SAT 98
[2025-05-10 06:43] VITALS: BP 127/79; TEMP 97.4; O2SAT 96
[2025-05-10 08:28] VITALS: BP 112/76
[2025-05-10 15:59] VITALS: BP 103/58; TEMP 97.8; O2SAT 98
[2025-05-11 06:40] VITALS: BP 110/70; TEMP 97.1; O2SAT 100
[2025-05-11 08:19] VITALS: BP 90/70
[2025-05-11 15:16] VITALS: BP 138/80; TEMP 97.8; O2SAT 97
[2025-05-12 06:29] VITALS: BP 127/78; TEMP 97; O2SAT 95
[2025-05-12 15:14] VITALS: BP 129/78; TEMP 97.6; O2SAT 97
[2025-05-13 06:52] VITALS: BP 105/61; TEMP 96.5; O2SAT 98
[2025-05-13 14:58] VITALS: BP 130/86; TEMP 97.1; O2SAT 98
[2025-05-14 06:16] VITALS: BP 158/94; TEMP 97.1; O2SAT 97
[2025-05-14 07:57] VITALS: BP 118/66
[2025-05-14 16:08] VITALS: BP 127/80; TEMP 97.4; O2SAT 96
[2025-05-15 06:33] VITALS: BP 103/63; TEMP 98.3; O2SAT 95
[2025-05-15 14:50] VITALS: BP 116/75; TEMP 98.1; O2SAT 95
[2025-05-16 06:27] VITALS: BP 128/79; TEMP 97.4; O2SAT 96
[2025-05-16 17:29] VITALS: BP 112/84; TEMP 97.1
[2025-05-17 15:18] VITALS: BP 128/91; TEMP 97.7; O2SAT 95
[2025-05-17] MEDS: PROPRANOLOL 10 MG TAB PO SCH (15:45)
[2025-05-18 06:27] VITALS: BP 113/70; TEMP 97; O2SAT 96
[2025-05-18 14:52] VITALS: BP 104/66; TEMP 97; O2SAT 97
[2025-05-18 21:23] VITALS: BP 102/68; TEMP 97; O2SAT 97
[2025-05-19 08:52] VITALS: BP 118/82
[2025-05-19 15:39] VITALS: BP 133/77; TEMP 97.2; O2SAT 98
[2025-05-20 08:20] VITALS: BP 133/77; TEMP 97.2; O2SAT 98
[2025-05-20 08:45] VITALS: BP 122/78
[2025-05-20 15:20] VITALS: BP 112/71; TEMP 96.9; O2SAT 97
[2025-05-21 07:07] VITALS: BP 110/78; TEMP 98.3; O2SAT 95
[2025-05-21 08:48] VITALS: BP 97/63
[2025-05-21 15:05] VITALS: BP 112/66; TEMP 97.1; O2SAT 96
[2025-05-22 06:30] VITALS: BP 139/77; TEMP 96.8; O2SAT 95
[2025-05-22] MEDS ORDERED: TRAZ-252 PO (06:45)
[2025-05-22] MEDS ORDERED: VENL75CA47 PO (06:45)
[2025-05-22] MEDS ORDERED: PROP10TA56 PO (06:45)
[2025-05-22] MEDS ORDERED: CLOZ100T5 PO ×2 (06:45)
[2025-05-22] MEDS: LOPERAMIDE 2 MG CAPLET PO PRN (07:07)
[2025-05-22 08:38] VITALS: BP 111/65
== END 2025-05-22 13:36 | disposition home or self-care (01) | DRG 885 ==
LOC: M PSY 13:47
PROVIDERS: ADMIT Internal Medicine; ATTEND Internal Medicine
DX: F25.0 Schizoaffective disorder, bipolar type (principal); A41.9 Sepsis, unspecified organism; N39.0 Urinary tract infection, site not specified; R45.851 Suicidal ideations; R25.1 Tremor, unspecified; R26.2 Difficulty in walking, not elsewhere classified; R47.81 Slurred speech; F41.1 Generalized anxiety disorder; I10 Essential (primary) hypertension; E03.9 Hypothyroidism, unspecified; K59.00 Constipation, unspecified; K21.9 Gastro-esophageal reflux disease without esophagitis; N40.0 Benign prostatic hyperplasia without lower urinary tract symptoms; F17.200 Nicotine dependence, unspecified, uncomplicated; F10.21 Alcohol dependence, in remission; F19.21 Other psychoactive substance dependence, in remission; Z90.89 Acquired absence of other organs; Z88.8 Allergy status to other drugs, medicaments and biological substances; Z79.890 Hormone replacement therapy; Z79.51 Long term (current) use of inhaled steroids; Z91.013 Allergy to seafood; Z88.1 Allergy status to other antibiotic agents; Z88.5 Allergy status to narcotic agent; Z81.8 Family history of other mental and behavioral disorders

== ENCOUNTER → 2025-06-04 | Outpatient (REF) | payer MEDICARE, MEDICAID ==
[~2025-06-04] MED LIST changes: +GABA-1171 PO
[2025-06-04 18:55] LABS: ALT/SGPT 16.0 U/L (7.0-40); AST/SGOT 19.0 U/L (<34); CALCIUM LEVEL 9.5 MG/DL (8.3-10.6); CARBON DIOXIDE LEVEL 27.0 MMOL/L (20-31); CHLORIDE LEVEL 108.0 MMOL/L (98-107); CHOLESTEROL LEVEL 133.0 MG/DL (<200); CHOLESTEROL RISK RATIO 3.06 (<5); CREATININE FOR GFR 1.08 MG/DL (0.70-1.30); GLOMERULAR FILTRATION RATE 76.6 (>49); LDL CHOLESTEROL 65.0 MG/DL (<100); NON-HDL-C 89.6 MG/DL; POTASSIUM SERUM 4.6 MMOL/L (3.5-5.1); PSA SCREENING 0.68 NG/ML (< 4.00); SODIUM LEVEL 144.0 MMOL/L (136-145); TRIGLYCERIDES LEVEL 123.0 MG/DL (<150)
[2025-06-04 18:57] LABS: FREE T4 1.48 NG/DL (0.89-1.76)
[2025-06-04 19:14] LABS: ESTIMATED AVERAGE GLUCOSE 117.0 MG/DL (60-110)
== END ==
LOC: M LAB REF 17:19
PROVIDERS: ATTEND Nurse Practitioner Family
DX: N40.1 Benign prostatic hyperplasia with lower urinary tract symptoms (principal); R39.11 Hesitancy of micturition; Z13.29 Encounter for screening for other suspected endocrine disorder; F20.9 Schizophrenia, unspecified; E03.9 Hypothyroidism, unspecified; F17.200 Nicotine dependence, unspecified, uncomplicated; R73.03 Prediabetes; Z12.5 Encounter for screening for malignant neoplasm of prostate
CPT/HCPCS: 80053; 80061; 83036; 84439; 84443; G0103

== ENCOUNTER 2025-06-07 20:48 | Inpatient (IN) | payer MEDICARE, MEDICAID ==
[~2025-06-07] VITALS: Ht 177.8 cm; Wt 75.0 kg
[~2025-06-07 20:48] MED LIST changes: +SENN-225 PO; -SENO8.6T5 PO
[2025-06-07 21:54] LABS: PLATELET COUNT, AUTOMATED 223 10^3/uL (150-450)
[2025-06-07 22:19] LABS: AMPHETAMINES LEVEL URINE NEGATIVE (NEGATIVE); BARBITURATES URINE NEGATIVE (NEGATIVE); BENZODIAZEPINES URINE NEGATIVE (NEGATIVE); COCAINE METABOLITE URINE NEGATIVE (NEGATIVE)
[2025-06-07 22:20] LABS: CANNABINOIDS URINE NEGATIVE (NEGATIVE); METHADONE URINE NEGATIVE (NEGATIVE); OPIATES URINE NEGATIVE (NEGATIVE); PHENCYCLIDINE URINE NEGATIVE (NEGATIVE)
[2025-06-07 22:24] LABS: ETHYL ALCOHOL (ETHANOL) 0.003 % (0.000-0.010)
[2025-06-07 22:25] LABS: SALICYLATE LEVEL < 3.0 MG/DL (<30)
[2025-06-07 22:26] LABS: ALT/SGPT 15 U/L (7.0-40); AST/SGOT 16 U/L (<34); CALCIUM LEVEL 8.9 MG/DL (8.3-10.6); CARBON DIOXIDE LEVEL 26 MMOL/L (20-31); CHLORIDE LEVEL 109 MMOL/L (98-107); CREATININE FOR GFR 1.31 MG/DL (0.70-1.30); GLOMERULAR FILTRATION RATE 60.8 (>49); POTASSIUM SERUM 4.1 MMOL/L (3.5-5.1); SODIUM LEVEL 145 MMOL/L (136-145)
[2025-06-07] MEDS ORDERED: MED REC IN PROGRESS XX SCH (23:00)
[2025-06-07 23:16] LABS: APPEARANCE, URINE CLEAR (CLEAR); BACTERIA, URINE AUTO NEGATIVE (NEGATIVE); BILIRUBIN, URINE AUTO NEGATIVE (NEGATIVE); BLOOD, URINE BLOOD NEGATIVE (NEGATIVE); GLUCOSE, URINE (UA) AUTO NEGATIVE (NEGATIVE); KETONE, URINE AUTO NEGATIVE (NEGATIVE); LEUKOCYTE ESTERASE, URINE AUTO NEGATIVE (NEGATIVE); NITRITE, URINE AUTO NEGATIVE (NEGATIVE); PROTEIN, URINE AUTO NEGATIVE (NEGATIVE); RBC, URINE AUTO 0 /HPF (0-3); SPECIFIC GRAVITY URINE AUTO 1.009 (1.002-1.035); SQUAMOUS EPITHELIAL CELL UR AU 0 /HPF (0-6); UROBILINOGEN, URINE AUTO 2.0 mg/dL (0.0-2.0); WBC, URINE AUTO 0 /HPF (0-3)
[2025-06-08] MEDS ORDERED: LITH1TAB PO (10:23)
[2025-06-08] MEDS ORDERED: PARO40TA3 PO (10:23)
[2025-06-08] MEDS ORDERED: NAPR-885 PO (10:23)
[2025-06-08] MEDS ORDERED: HOME MED LIST COMPLETE! XX SCH (10:25)
[2025-06-08] MEDS ORDERED: IBUPROFEN 400 MG TAB PO PRN (13:55)
[2025-06-08] MEDS ORDERED: ACETAMINOPHEN 325 MG TAB PO PRN (13:55)
[2025-06-08] MEDS ORDERED: MOM 30 ML SUSPENSION UDC PO PRN (13:55)
[2025-06-08 14:44] LABS: BASO # 0.0 10^3/uL (0.0-0.2); BASO % 0.6 % (0.0-1.0); EOS # 0.0 10^3/uL (0.0-0.5); EOS % 0.5 % (0.0-3.0); LYMPH # 2.1 10^3/uL (1.5-5.0); LYMPH % 33.5 % (24.0-44.0); MONO # 0.7 10^3/uL (0.0-0.8); MONO % 10.4 % (2.0-8.0); NEUTROPHILS # 3.4 10^3/uL (1.5-8.5); NEUTROPHILS % 54.5 % (36.0-66.0); PLATELET COUNT, AUTOMATED 205 10^3/uL (150-450)
[2025-06-08] MEDS: FINASTERIDE 5 MG TAB PO SCH (15:05)
[2025-06-08] MEDS: TAMSULOSIN 0.4 MG CAP PO SCH (15:05)
[2025-06-08] MEDS: amLODIPine 5 MG TAB PO SCH (15:07)
[2025-06-08] MEDS: PANTOPRAZOLE 40MG TAB PO SCH (15:07)
[2025-06-08] MEDS: PROPRANOLOL 10 MG TAB PO SCH (15:07)
[2025-06-08] MEDS: VENLAFAXINE **XR** 75MG CAPSULE PO SCH (15:07)
[2025-06-08] MEDS: NICOTINE 14 MG/24 HR TRANSDERMAL TD SCH (15:07)
[2025-06-08] MEDS: LORazepam 1 MG TAB PO PRN (18:04)
[2025-06-08 18:07] VITALS: BP 110/77; TEMP 98.4; O2SAT 98
[2025-06-08] MEDS: ATORVASTATIN 10 MG TAB PO SCH (21:10)
[2025-06-08] MEDS: AMANTADINE 100 MG PO SCH (21:10)
[2025-06-08] MEDS: traZODone 50 MG TAB PO PRN (21:13)
[2025-06-08] MEDS: BENZTROPINE 1 MG TAB PO SCH (21:14)
[2025-06-09] MEDS: LEVOTHYROXINE 100 MCG TABLET (0.1 MG) PO SCH (06:01)
[2025-06-09 06:34] VITALS: BP 132/78; TEMP 97; O2SAT 94
[2025-06-09 15:49] VITALS: BP 102/72; TEMP 97.6; O2SAT 96
[2025-06-10 06:56] VITALS: BP 121/83; TEMP 97.2; O2SAT 95
[2025-06-10 14:46] VITALS: BP 104/70; TEMP 98.6; O2SAT 99
[2025-06-11 06:32] VITALS: BP 104/66; TEMP 97.1; O2SAT 98
[2025-06-11 18:35] VITALS: BP 90/52; TEMP 97.7
[2025-06-12 06:22] VITALS: BP 108/76; TEMP 97.4; O2SAT 100
[2025-06-12 15:31] VITALS: BP 105/61; TEMP 97.3; O2SAT 94
[2025-06-12] MEDS: MAALOX 30 ML SUSP *UDC PO PRN (17:27)
[2025-06-12] MEDS: OLANZapine 5 MG TAB PO PRN (20:32)
[2025-06-13 06:25] VITALS: BP 125/79; TEMP 97.1; O2SAT 96
[2025-06-13 07:10] LABS: BASO # 0.1 10^3/uL (0.0-0.2); BASO % 0.5 % (0.0-1.0); EOS # 0.0 10^3/uL (0.0-0.5); EOS % 0.4 % (0.0-3.0); LYMPH # 2.7 10^3/uL (1.5-5.0); LYMPH % 26.4 % (24.0-44.0); MONO # 1.1 10^3/uL (0.0-0.8); MONO % 10.8 % (2.0-8.0); NEUTROPHILS # 6.3 10^3/uL (1.5-8.5); NEUTROPHILS % 61.6 % (36.0-66.0); PLATELET COUNT, AUTOMATED 185 10^3/uL (150-450)
[2025-06-13] MEDS: VENLAFAXINE **XR** 75MG CAPSULE PO SCH (09:08)
[2025-06-13 14:40] VITALS: BP 123/91; TEMP 97; O2SAT 99
[2025-06-14 06:54] VITALS: BP 126/79; TEMP 96.9; O2SAT 95
[2025-06-14 15:36] VITALS: BP 131/78; TEMP 97.9; O2SAT 99
[2025-06-15 07:00] VITALS: BP 112/67; TEMP 98.2; O2SAT 97
[2025-06-15] MEDS: NICOTINE POLACRILEX 2 MG GUM PO PRN (08:08)
[2025-06-15 12:07] LABS: CLOZAPINE 1 896 ng/mL (350-600); CLOZAPINE 2 752 ng/mL (Not Estab.); CLOZAPINE 3 1648 ng/mL (.)
[2025-06-15 15:44] VITALS: BP 122/82; TEMP 98; O2SAT 96
[2025-06-16 06:28] VITALS: BP 119/74; TEMP 98.4; O2SAT 97
[2025-06-16 15:15] VITALS: BP 134/82; TEMP 98.5; O2SAT 98
[2025-06-17 06:34] VITALS: BP 109/72; TEMP 97.2; O2SAT 98
[2025-06-17 15:24] VITALS: BP 111/73; TEMP 97.8; O2SAT 97
[2025-06-18 06:31] VITALS: BP 115/71; TEMP 98.8; O2SAT 93
[2025-06-18 15:26] VITALS: BP 125/86; TEMP 97.4; O2SAT 98
[2025-06-19 06:34] VITALS: BP 120/72; TEMP 97.6; O2SAT 96
[2025-06-19 15:22] VITALS: BP 111/82; TEMP 97.3; O2SAT 98
[2025-06-20 06:39] VITALS: BP 141/78; TEMP 97.1; O2SAT 97
[2025-06-20 15:15] VITALS: BP 112/68; TEMP 97.1; O2SAT 95
[2025-06-21] MEDS ORDERED: VENL75CA47 PO (01:53)
[2025-06-21 06:32] VITALS: BP 114/67; TEMP 97.7; O2SAT 98
[2025-06-21 08:37] VITALS: BP 143/82
== END 2025-06-21 13:28 | disposition home or self-care (01) | DRG 885 ==
LOC: M ED 20:48 → M ED INP 06-08 13:52 → M PSY 06-08 17:50
PROVIDERS: ADMIT Internal Medicine; ATTEND Internal Medicine
DX: F25.0 Schizoaffective disorder, bipolar type (principal); R45.851 Suicidal ideations; F41.1 Generalized anxiety disorder; Z79.899 Other long term (current) drug therapy; I10 Essential (primary) hypertension; E03.9 Hypothyroidism, unspecified; N40.0 Benign prostatic hyperplasia without lower urinary tract symptoms; K59.00 Constipation, unspecified; K21.9 Gastro-esophageal reflux disease without esophagitis; Z79.890 Hormone replacement therapy; Z91.51 Personal history of suicidal behavior

== ENCOUNTER 2025-07-14 23:00 | Emergency (ER) | payer MEDICARE, MEDICAID ==
[~2025-07-14] VITALS: Ht 177.8 cm; Wt 70.4 kg
[~2025-07-14 23:00] MED LIST changes: -AMAN100T19 PO; +AMAN100T8 PO; -IBUP1TAB6 PO; +LITH1TAB PO; +NAPR-885 PO; +PARO40TA3 PO; +SFHIBU600 PO
[2025-07-15 02:16] VITALS: BP 127/74; TEMP 97.2; O2SAT 97
== END 2025-07-15 02:18 | disposition home or self-care (01) ==
LOC: M ED 23:00
DX: K11.7 Disturbances of salivary secretion (principal); E11.9 Type 2 diabetes mellitus without complications; N40.0 Benign prostatic hyperplasia without lower urinary tract symptoms; J44.9 Chronic obstructive pulmonary disease, unspecified; F25.9 Schizoaffective disorder, unspecified; Z88.8 Allergy status to other drugs, medicaments and biological substances; Z79.899 Other long term (current) drug therapy

== ENCOUNTER 2025-07-21 15:51 | Inpatient (IN) | payer MEDICARE, MEDICAID ==
[~2025-07-21] VITALS: Ht 179.1 cm; Wt 65.0 kg
[2025-07-21 16:19] LABS: PLATELET COUNT, AUTOMATED 210 10^3/uL (150-450)
[2025-07-21 17:01] LABS: AMPHETAMINES LEVEL URINE NEGATIVE (NEGATIVE); BARBITURATES URINE NEGATIVE (NEGATIVE); BENZODIAZEPINES URINE NEGATIVE (NEGATIVE); CANNABINOIDS URINE NEGATIVE (NEGATIVE); COCAINE METABOLITE URINE NEGATIVE (NEGATIVE); METHADONE URINE NEGATIVE (NEGATIVE); OPIATES URINE NEGATIVE (NEGATIVE); PHENCYCLIDINE URINE NEGATIVE (NEGATIVE)
[2025-07-21 17:02] LABS: ALT/SGPT 9 U/L (7.0-40); AST/SGOT 13 U/L (<34); CALCIUM LEVEL 9.7 MG/DL (8.3-10.6); CARBON DIOXIDE LEVEL 26 MMOL/L (20-31); CHLORIDE LEVEL 107 MMOL/L (98-107); CREATININE FOR GFR 1.02 MG/DL (0.70-1.30); GLOMERULAR FILTRATION RATE 82.1 (>49); POTASSIUM SERUM 4.3 MMOL/L (3.5-5.1); SALICYLATE LEVEL < 3.0 MG/DL (<30); SODIUM LEVEL 143 MMOL/L (136-145)
[2025-07-21 17:04] LABS: ETHYL ALCOHOL (ETHANOL) < 0.003 % (0.000-0.010)
[2025-07-21] MEDS ORDERED: ACETAMINOPHEN 325 MG TAB PO PRN (17:30)
[2025-07-21] MEDS ORDERED: MOM 30 ML SUSPENSION UDC PO PRN (17:30)
[2025-07-21] MEDS ORDERED: HOME MED LIST COMPLETE! XX SCH (17:40)
[2025-07-21 18:13] VITALS: BP 116/76; TEMP 99.7; O2SAT 94
[2025-07-21] MEDS ORDERED: NICOTINE POLACRILEX 2 MG GUM PO PRN (19:55)
[2025-07-21] MEDS: traZODone 50 MG TAB PO PRN (20:33)
[2025-07-21] MEDS: ATORVASTATIN 10 MG TAB PO SCH (20:33)
[2025-07-21] MEDS: BENZTROPINE 1 MG TAB PO SCH (20:33)
[2025-07-21] MEDS: PROPRANOLOL 10 MG TAB PO SCH (20:33)
[2025-07-21] MEDS: LORazepam 1 MG TAB PO SCH (20:33)
[2025-07-21] MEDS: AMANTADINE 100 MG PO SCH (20:34)
[2025-07-22] MEDS: LEVOTHYROXINE 100 MCG TABLET (0.1 MG) PO SCH (06:05)
[2025-07-22 06:29] VITALS: BP 133/82; TEMP 97; O2SAT 95
[2025-07-22 08:37] VITALS: BP 131/75
[2025-07-22] MEDS: PANTOPRAZOLE 40MG TAB PO SCH (08:41)
[2025-07-22] MEDS: TAMSULOSIN 0.4 MG CAP PO SCH (08:41)
[2025-07-22] MEDS: FINASTERIDE 5 MG TAB PO SCH (08:41)
[2025-07-22] MEDS: amLODIPine 5 MG TAB PO SCH (08:41)
[2025-07-22] MEDS: VENLAFAXINE **XR** 75MG CAPSULE PO SCH (08:41)
[2025-07-22 14:39] VITALS: BP 114/72; TEMP 97.6; O2SAT 96
[2025-07-23 06:20] VITALS: BP 110/88; TEMP 96.9; O2SAT 98
[2025-07-23 08:44] VITALS: BP 102/77
[2025-07-23] MEDS ORDERED: PROPRANOLOL 10 MG TAB PO PRN (12:30)
[2025-07-23 15:09] VITALS: BP 87/63; TEMP 97.4; O2SAT 97
[2025-07-24 06:14] VITALS: BP 105/74; TEMP 97.2; O2SAT 96
[2025-07-24] MEDS: MIRALAX *UNIT DOSE* 17 GM PACKET PO SCH (09:00)
[2025-07-24 10:31] LABS: BASO # 0.1 10^3/uL (0.0-0.2); BASO % 0.7 % (0.0-1.0); EOS # 0.0 10^3/uL (0.0-0.5); EOS % 0.5 % (0.0-3.0); LYMPH # 2.1 10^3/uL (1.5-5.0); LYMPH % 28.5 % (24.0-44.0); MONO # 0.9 10^3/uL (0.0-0.8); MONO % 12.3 % (2.0-8.0); NEUTROPHILS # 4.2 10^3/uL (1.5-8.5); NEUTROPHILS % 57.6 % (36.0-66.0); PLATELET COUNT, AUTOMATED 199 10^3/uL (150-450)
[2025-07-24] MEDS: LORazepam 0.5 MG TAB PO SCH (16:58)
[2025-07-24 17:30] VITALS: BP 109/67; TEMP 97.4
[2025-07-24] MEDS: LORazepam 1 MG TAB PO SCH (20:30)
[2025-07-25 06:21] VITALS: BP 103/79; TEMP 97.6; O2SAT 97
[2025-07-25] MEDS: TUBERCULIN PPD 5 UNITS/0.1 ML ID ONE ×2 (09:29→10:28)
[2025-07-25 15:39] VITALS: BP 140/94; TEMP 98.3; O2SAT 97
[2025-07-25] MEDS: IBUPROFEN 400 MG TAB PO PRN (20:19)
[2025-07-26 06:15] VITALS: BP 111/74; TEMP 96.6; O2SAT 97
[2025-07-26] MEDS ORDERED: PPD DOCUMENTATION ENTRY MISC XX ONE (15:00)
[2025-07-26 15:59] VITALS: BP 107/63; TEMP 97.5; O2SAT 98
[2025-07-27 06:31] VITALS: BP 102/70; TEMP 97.4; O2SAT 95
[2025-07-27] MEDS: PPD DOCUMENTATION ENTRY MISC XX ONE (09:00)
[2025-07-27 15:33] VITALS: BP 121/85; TEMP 97.8; O2SAT 99
[2025-07-28 06:22] VITALS: BP 111/69; TEMP 97.5; O2SAT 95
[2025-07-28 14:07] LABS: CLOZAPINE 1 592 ng/mL (350-600); CLOZAPINE 2 493 ng/mL (Not Estab.); CLOZAPINE 3 1085 ng/mL (.)
[2025-07-28 15:44] VITALS: BP 122/81; TEMP 97.5; O2SAT 98
[2025-07-28] MEDS: MAALOX 30 ML SUSP *UDC PO PRN (16:29)
[2025-07-28] MEDS: DOCUSATE SODIUM 100 MG CAPSULE PO ONE (17:19)
[2025-07-28] MEDS: SENNA 8.6 MG TAB PO ONE (17:19)
[2025-07-29 06:29] VITALS: BP 104/75; TEMP 96.8; O2SAT 95
[2025-07-29] MEDS: DOCUSATE SODIUM 100 MG CAPSULE PO SCH (08:48)
[2025-07-29 14:54] VITALS: BP 111/72; TEMP 88; O2SAT 95
[2025-07-29] MEDS: SENNA 8.6 MG TAB PO SCH (20:52)
[2025-07-30 06:32] VITALS: BP 109/72; TEMP 97; O2SAT 98
[2025-07-30 09:01] VITALS: BP 98/76
[2025-07-30 15:46] VITALS: BP 111/62; TEMP 97.2; O2SAT 100
[2025-07-31 06:29] VITALS: BP 128/80; TEMP 97.3; O2SAT 95
[2025-07-31 09:16] VITALS: BP 110/58
[2025-07-31] MEDS: LOPERAMIDE 2 MG CAPLET PO ONE (11:37)
[2025-07-31 15:06] VITALS: BP 112/67; TEMP 98.8; O2SAT 95
[2025-08-01 06:37] VITALS: BP 117/65; TEMP 96.9; O2SAT 98
[2025-08-01] MEDS: LOPERAMIDE 2 MG CAPLET PO PRN (07:39)
[2025-08-01 08:22] VITALS: BP 118/78
[2025-08-01] MEDS ORDERED: ATIV1TAB10 PO (09:08)
[2025-08-01] MEDS ORDERED: PROP10TA56 PO (09:08)
== END 2025-08-01 13:12 | disposition home or self-care (01) | DRG 885 ==
LOC: M ED 15:51 → M ED INP 17:26 → M PSY 18:14
PROVIDERS: ADMIT General Practice; ATTEND Psychiatry & Neurology Psychiatry
PROC: 0HDRXZZ Extraction of Toe Nail, External Approach (ICD-10-PCS; principal; 2025-07-27)
DX: F25.0 Schizoaffective disorder, bipolar type (principal); R45.851 Suicidal ideations; F41.9 Anxiety disorder, unspecified; I10 Essential (primary) hypertension; E03.9 Hypothyroidism, unspecified; N40.0 Benign prostatic hyperplasia without lower urinary tract symptoms; K59.00 Constipation, unspecified; K21.9 Gastro-esophageal reflux disease without esophagitis; F17.210 Nicotine dependence, cigarettes, uncomplicated; L60.0 Ingrowing nail; Z81.8 Family history of other mental and behavioral disorders; Z79.890 Hormone replacement therapy; Z79.899 Other long term (current) drug therapy; Z88.8 Allergy status to other drugs, medicaments and biological substances

== ENCOUNTER 2025-08-18 15:40 | Inpatient (IN) | payer MEDICAID, MEDICARE ==
[~2025-08-18] VITALS: Ht 177.8 cm; Wt 65.5 kg
[2025-08-18 16:40] LABS: PLATELET COUNT, AUTOMATED 218 10^3/uL (150-450)
[2025-08-18 17:12] LABS: ETHYL ALCOHOL (ETHANOL) < 0.003 % (0.000-0.010)
[2025-08-18 17:13] LABS: ALT/SGPT < 9 U/L (7.0-40); AST/SGOT 13 U/L (<34); CALCIUM LEVEL 9.3 MG/DL (8.3-10.6); CARBON DIOXIDE LEVEL 26 MMOL/L (20-31); CHLORIDE LEVEL 105 MMOL/L (98-107); CREATININE FOR GFR 1.05 MG/DL (0.70-1.30); GLOMERULAR FILTRATION RATE 79.3 (>49); POTASSIUM SERUM 4.0 MMOL/L (3.5-5.1); SALICYLATE LEVEL < 3.0 MG/DL (<30); SODIUM LEVEL 139 MMOL/L (136-145)
[2025-08-18 17:29] LABS: AMPHETAMINES LEVEL URINE NEGATIVE (NEGATIVE); BARBITURATES URINE NEGATIVE (NEGATIVE); BENZODIAZEPINES URINE NEGATIVE (NEGATIVE); CANNABINOIDS URINE NEGATIVE (NEGATIVE); COCAINE METABOLITE URINE NEGATIVE (NEGATIVE); METHADONE URINE NEGATIVE (NEGATIVE); OPIATES URINE NEGATIVE (NEGATIVE); PHENCYCLIDINE URINE NEGATIVE (NEGATIVE)
[2025-08-18] MEDS ORDERED: HOME MED LIST COMPLETE! XX SCH (18:40)
[2025-08-18] MEDS: PROPRANOLOL 10 MG TAB PO ONE (19:55)
[2025-08-18] MEDS: VENLAFAXINE **XR** 75MG CAPSULE PO ONE (21:06)
[2025-08-18] MEDS ORDERED: MAALOX 30 ML SUSP *UDC PO PRN (21:50)
[2025-08-18] MEDS ORDERED: HALOPERIDOL 5 MG TAB PO PRN (21:50)
[2025-08-18] MEDS ORDERED: MOM 30 ML SUSPENSION UDC PO PRN (21:50)
[2025-08-18] MEDS ORDERED: ACETAMINOPHEN 325 MG TAB PO PRN (21:50)
[2025-08-18] MEDS ORDERED: LORazepam 1 MG TAB PO PRN (21:50)
[2025-08-18] MEDS ORDERED: IBUPROFEN 400 MG TAB PO PRN (21:50)
[2025-08-19 01:30] VITALS: BP 121/79; TEMP 97.5; O2SAT 97
[2025-08-19] MEDS ORDERED: PROPRANOLOL 10 MG TAB PO PRN (01:50)
[2025-08-19] MEDS ORDERED: traZODone 50 MG TAB PO PRN (01:50)
[2025-08-19 02:26] LABS: BASO # 0.1 10^3/uL (0.0-0.2); BASO % 0.8 % (0.0-1.0); EOS # 0.1 10^3/uL (0.0-0.5); EOS % 0.7 % (0.0-3.0); LYMPH # 2.6 10^3/uL (1.5-5.0); LYMPH % 34.9 % (24.0-44.0); MONO # 1.0 10^3/uL (0.0-0.8); MONO % 12.7 % (2.0-8.0); NEUTROPHILS # 3.8 10^3/uL (1.5-8.5); NEUTROPHILS % 50.6 % (36.0-66.0); PLATELET COUNT, AUTOMATED 226 10^3/uL (150-450)
[2025-08-19] MEDS: LEVOTHYROXINE 100 MCG TABLET (0.1 MG) PO SCH (06:23)
[2025-08-19 06:46] VITALS: BP 128/91; TEMP 97.3; O2SAT 96
[2025-08-19] MEDS: BENZTROPINE 1 MG TAB PO SCH (09:32)
[2025-08-19] MEDS: FINASTERIDE 5 MG TAB PO SCH (09:32)
[2025-08-19] MEDS: LORazepam 1 MG TAB PO SCH (09:32)
[2025-08-19] MEDS: TAMSULOSIN 0.4 MG CAP PO SCH (09:33)
[2025-08-19] MEDS: AMANTADINE 100 MG PO SCH (09:33)
[2025-08-19] MEDS: amLODIPine 5 MG TAB PO SCH (09:33)
[2025-08-19 15:32] VITALS: BP 93/64; TEMP 98.5; O2SAT 99
[2025-08-19] MEDS: VENLAFAXINE **XR** 75MG CAPSULE PO SCH (15:46)
[2025-08-19] MEDS: LORazepam 0.5 MG TAB PO SCH ×2 (16:00→20:51)
[2025-08-19] MEDS: ATORVASTATIN 10 MG TAB PO SCH (20:51)
[2025-08-19] MEDS: traZODone 50 MG TAB PO PRN (20:51)
[2025-08-20 06:27] VITALS: BP 103/68; TEMP 96.8; O2SAT 94
[2025-08-20 10:03] VITALS: BP 110/75
[2025-08-20] MEDS: FLUZONE VACCINE TRI PF(25-26) 0.5ML SYRINGE IM.IMMUN ONE (12:11)
[2025-08-20 15:44] VITALS: BP 109/67; TEMP 96.8; O2SAT 96
[2025-08-21 10:46] VITALS: BP 109/65
[2025-08-21] MEDS: OLANZapine 5 MG TAB PO PRN (10:53)
[2025-08-21] MEDS: LORazepam 0.5 MG TAB PO PRN (17:14)
[2025-08-21 18:59] VITALS: BP 127/91; TEMP 97.5; O2SAT 98
[2025-08-21] MEDS: SALIVA SUBSTITUTE BTL MT PRN (20:14)
[2025-08-22 06:43] VITALS: BP 106/67; TEMP 97.6; O2SAT 98
[2025-08-22 15:27] VITALS: BP 104/74; TEMP 97; O2SAT 97
[2025-08-23 06:44] VITALS: BP 125/76; TEMP 97; O2SAT 100
[2025-08-23 15:56] VITALS: BP 125/69; TEMP 97.2; O2SAT 99
[2025-08-24 06:24] VITALS: BP 115/79; TEMP 97.5; O2SAT 98
[2025-08-24] MEDS: VENLAFAXINE **XR** 37.5 MG CAPSULE PO SCH (09:03)
[2025-08-24] MEDS: VENLAFAXINE **XR** 75MG CAPSULE PO SCH (09:03)
[2025-08-24 15:25] VITALS: BP 90/69; TEMP 98; O2SAT 98
[2025-08-25 06:20] VITALS: BP 120/74; TEMP 97.8; O2SAT 96
[2025-08-25 15:49] VITALS: BP 101/68; TEMP 97; O2SAT 98
[2025-08-26 06:14] VITALS: BP 118/72; TEMP 98.2; O2SAT 99
[2025-08-26 09:02] VITALS: BP 96/78
[2025-08-26 15:37] VITALS: BP 101/69; TEMP 97.8; O2SAT 99
[2025-08-27 06:29] VITALS: BP 103/73; TEMP 97.3; O2SAT 94
[2025-08-27 15:18] VITALS: BP 119/78; TEMP 98.3; O2SAT 97
[2025-08-28 06:22] VITALS: BP 118/75; TEMP 97.8; O2SAT 98
[2025-08-28 15:13] VITALS: BP 102/67; TEMP 97.3; O2SAT 97
[2025-08-28 20:11] VITALS: BP 120/90
[2025-08-29 06:22] VITALS: BP 143/88; TEMP 97.7; O2SAT 98
[2025-08-29 15:43] VITALS: BP 122/78; TEMP 97.3; O2SAT 98
[2025-08-30 06:34] VITALS: BP 98/68; TEMP 96.1; O2SAT 98
[2025-08-30] MEDS ORDERED: MOUKOT60 MT (08:39)
[2025-08-30] MEDS ORDERED: VENL37.598 PO (08:39)
[2025-08-30] MEDS ORDERED: OLAN1TAB16 PO (08:39)
[2025-08-30 09:00] VITALS: BP 100/68
[2025-08-31] MEDS ORDERED: CLOZ100T5 PO (17:15)
== END 2025-08-30 10:46 | disposition home or self-care (01) | DRG 885 ==
LOC: M ED 15:40 → M ED INP 21:49 → M PSY 08-19 01:35
PROVIDERS: ADMIT Student in an Organized Health Care Education/Training Program; ATTEND Psychiatry & Neurology Psychiatry
DX: F25.0 Schizoaffective disorder, bipolar type (principal); R45.851 Suicidal ideations; F41.0 Panic disorder [episodic paroxysmal anxiety]; E03.9 Hypothyroidism, unspecified; F41.1 Generalized anxiety disorder; I10 Essential (primary) hypertension; K59.00 Constipation, unspecified; N40.0 Benign prostatic hyperplasia without lower urinary tract symptoms; K21.9 Gastro-esophageal reflux disease without esophagitis; R73.9 Hyperglycemia, unspecified; R74.8 Abnormal levels of other serum enzymes; Z91.51 Personal history of suicidal behavior; Z79.890 Hormone replacement therapy; Z79.899 Other long term (current) drug therapy; Z88.8 Allergy status to other drugs, medicaments and biological substances

== ENCOUNTER 2025-09-25 22:02 | Emergency (ER) | payer MEDICAID, MEDICARE ==
[~2025-09-25] VITALS: Ht 177.8 cm; Wt 67.6 kg
[~2025-09-25 22:02] MED LIST changes: +MOUKOT60 MT
[2025-09-25 22:26] LABS: BASO # 0.0 10^3/uL (0.0-0.2); BASO % 0.2 % (0.0-1.0); EOS # 0.0 10^3/uL (0.0-0.5); EOS % 0.0 % (0.0-3.0); LYMPH # 1.1 10^3/uL (1.5-5.0); LYMPH % 4.6 % (24.0-44.0); MONO # 2.0 10^3/uL (0.0-0.8); MONO % 8.3 % (2.0-8.0); NEUTROPHILS # 20.4 10^3/uL (1.5-8.5); NEUTROPHILS % 86.4 % (36.0-66.0); PLATELET COUNT, AUTOMATED 277 10^3/uL (150-450)
[2025-09-25 22:41] LABS: ETHYL ALCOHOL (ETHANOL) < 0.003 % (0.000-0.010)
[2025-09-25 22:43] LABS: ALT/SGPT 15 U/L (7.0-40); AST/SGOT 25 U/L (<34); CALCIUM LEVEL 9.5 MG/DL (8.3-10.6); CARBON DIOXIDE LEVEL 19 MMOL/L (20-31); CHLORIDE LEVEL 107 MMOL/L (98-107); CREATININE FOR GFR 0.86 MG/DL (0.70-1.30); GLOMERULAR FILTRATION RATE > 90.0 (>49); POTASSIUM SERUM 4.5 MMOL/L (3.5-5.1); SALICYLATE LEVEL < 3.0 MG/DL (<30); SODIUM LEVEL 142 MMOL/L (136-145)
[2025-09-25 22:46] LABS: CPK CREATINE PHOSPHOKINASE 53 U/L (46-171)
[2025-09-25 23:10] LABS: VENOUS BASE EXCESS -2.8 (-2.0-2.0); VENOUS HCO3 18.8 MMOL/L (23.0-27.0); VENOUS O2 SATURATION 98.4 % (60.0-80.0); VENOUS PARTIAL PRESSURE CO2 25.7 mmHg (38.0-50.0); VENOUS PARTIAL PRESSURE O2 127.0 mmHg (30.0-50.0); VENOUS PH 7.481 UNITS (7.330-7.430); VENOUS STANDARD HCO3 22.2 MMOL/L; VENOUS TOTAL CO2 19.5 MMOL/L (24.0-28.0)
[2025-09-26 01:45] VITALS: BP 131/82; TEMP 97; O2SAT 99
== END 2025-09-26 02:03 | disposition short-term general hospital (02) ==
LOC: M ED 22:02
DX: R45.851 Suicidal ideations (principal); T54.92XA Toxic effect of unspecified corrosive substance, intentional self-harm, initial encounter; I10 Essential (primary) hypertension; J44.9 Chronic obstructive pulmonary disease, unspecified; F20.9 Schizophrenia, unspecified; Z88.8 Allergy status to other drugs, medicaments and biological substances; Z79.899 Other long term (current) drug therapy

== ENCOUNTER → 2025-10-18 | Outpatient (CLI) | payer MEDICARE ==
[2025-10-18 11:34] LABS: BASO # 0.1 10^3/uL (0.0-0.2); BASO % 0.9 % (0.0-1.0); EOS # 0.1 10^3/uL (0.0-0.5); EOS % 1.0 % (0.0-3.0); LYMPH # 2.0 10^3/uL (1.5-5.0); LYMPH % 23.0 % (24.0-44.0); MONO # 1.1 10^3/uL (0.0-0.8); MONO % 12.8 % (2.0-8.0); NEUTROPHILS # 5.4 10^3/uL (1.5-8.5); NEUTROPHILS % 61.7 % (36.0-66.0); PLATELET COUNT, AUTOMATED 312 10^3/uL (150-450)
== END ==
LOC: M LAB 09:48
PROVIDERS: ATTEND Nurse Practitioner Family
DX: Z51.81 Encounter for therapeutic drug level monitoring (principal); Z79.899 Other long term (current) drug therapy

== ENCOUNTER → 2025-10-19 | Outpatient (REF) | payer MEDICARE ==
[2025-10-19 17:40] LABS: BASO # 0.1 10^3/uL (0.0-0.2); BASO % 0.8 % (0.0-1.0); EOS # 0.1 10^3/uL (0.0-0.5); EOS % 1.3 % (0.0-3.0); LYMPH # 2.4 10^3/uL (1.5-5.0); LYMPH % 29.7 % (24.0-44.0); MONO # 1.0 10^3/uL (0.0-0.8); MONO % 12.7 % (2.0-8.0); NEUTROPHILS # 4.4 10^3/uL (1.5-8.5); NEUTROPHILS % 55.0 % (36.0-66.0); PLATELET COUNT, AUTOMATED 321 10^3/uL (150-450)
[2025-10-19 18:10] LABS: ALT/SGPT 16 U/L (7.0-40); AST/SGOT 20 U/L (<34); CALCIUM LEVEL 9.3 MG/DL (8.3-10.6); CARBON DIOXIDE LEVEL 29 MMOL/L (20-31); CHLORIDE LEVEL 107 MMOL/L (98-107); CREATININE FOR GFR 0.91 MG/DL (0.70-1.30); GLOMERULAR FILTRATION RATE > 90.0 (>49); POTASSIUM SERUM 4.8 MMOL/L (3.5-5.1); SODIUM LEVEL 141 MMOL/L (136-145)
[2025-10-19 18:12] LABS: VITAMIN B12 LEVEL 367 PG/ML (211-911)
== END ==
LOC: M LAB REF 16:25
PROVIDERS: ATTEND Nurse Practitioner Family
DX: E03.9 Hypothyroidism, unspecified (principal); I10 Essential (primary) hypertension; F17.200 Nicotine dependence, unspecified, uncomplicated; E78.5 Hyperlipidemia, unspecified; R68.2 Dry mouth, unspecified

== ENCOUNTER 2025-10-31 16:25 | Inpatient (IN) | payer MEDICARE ==
[~2025-10-31] VITALS: Ht 177.8 cm; Wt 65.9 kg
[2025-10-31 17:16] LABS: PLATELET COUNT, AUTOMATED 283 10^3/uL (150-450)
[2025-10-31 17:41] LABS: ETHYL ALCOHOL (ETHANOL) < 0.003 % (0.000-0.010)
[2025-10-31 17:42] LABS: ALT/SGPT 14 U/L (7.0-40); AST/SGOT 17 U/L (<34); CALCIUM LEVEL 9.5 MG/DL (8.3-10.6); CARBON DIOXIDE LEVEL 28 MMOL/L (20-31); CHLORIDE LEVEL 104 MMOL/L (98-107); CREATININE FOR GFR 0.92 MG/DL (0.70-1.30); GLOMERULAR FILTRATION RATE > 90.0 (>49); POTASSIUM SERUM 4.4 MMOL/L (3.5-5.1); SALICYLATE LEVEL < 3.0 MG/DL (<30); SODIUM LEVEL 141 MMOL/L (136-145)
[2025-10-31 18:05] LABS: AMPHETAMINES LEVEL URINE NEGATIVE (NEGATIVE); BARBITURATES URINE NEGATIVE (NEGATIVE); BENZODIAZEPINES URINE NEGATIVE (NEGATIVE); COCAINE METABOLITE URINE NEGATIVE (NEGATIVE); METHADONE URINE NEGATIVE (NEGATIVE); OPIATES URINE NEGATIVE (NEGATIVE); PHENCYCLIDINE URINE NEGATIVE (NEGATIVE)
[2025-10-31 18:06] LABS: CANNABINOIDS URINE NEGATIVE (NEGATIVE)
[2025-10-31] MEDS ORDERED: ACETAMINOPHEN 325 MG TAB PO PRN (20:35)
[2025-10-31] MEDS ORDERED: MOM 30 ML SUSPENSION UDC PO PRN (20:35)
[2025-10-31] MEDS ORDERED: MAALOX 30 ML SUSP *UDC PO PRN (20:35)
[2025-10-31] MEDS ORDERED: IBUPROFEN 400 MG TAB PO PRN (20:35)
[2025-10-31 22:15] VITALS: BP 132/79; TEMP 97.2; O2SAT 99
[2025-10-31] MEDS ORDERED: CLOZ25TA6 PO (23:01)
[2025-10-31] MEDS ORDERED: TREL1AER INH (23:01)
[2025-10-31] MEDS ORDERED: VITA100066 PO (23:03)
[2025-10-31] MEDS ORDERED: HOME MED LIST COMPLETE! XX SCH (23:05)
[2025-10-31] MEDS ORDERED: OLANZapine 5 MG TAB PO PRN (23:15)
[2025-10-31] MEDS: traZODone 50 MG TAB PO PRN (23:57)
[2025-10-31] MEDS: ATORVASTATIN 10 MG TAB PO SCH (23:57)
[2025-10-31] MEDS: OLANZapine 5 MG TAB PO PRN (23:58)
[2025-11-01] MEDS: AMANTADINE 100 MG PO SCH (00:08)
[2025-11-01] MEDS: LEVOTHYROXINE 100 MCG TABLET (0.1 MG) PO SCH (05:51)
[2025-11-01 06:31] VITALS: BP 121/78; TEMP 97; O2SAT 98
[2025-11-01] MEDS: VITAMIN D 1,000 INTERNATIONAL UNITS TABLET PO SCH (08:06)
[2025-11-01] MEDS: FINASTERIDE 5 MG TAB PO SCH (08:06)
[2025-11-01] MEDS: TAMSULOSIN 0.4 MG CAP PO SCH (08:06)
[2025-11-01] MEDS: VENLAFAXINE **XR** 75MG CAPSULE PO SCH (08:06)
[2025-11-01] MEDS: LORazepam 1 MG TAB PO PRN (10:31)
[2025-11-01] MEDS: SYMBICORT 80/4.5MCG INHALER 6GM INH SCH (11:30)
[2025-11-01] MEDS: TIOTROPIUM BROM 2.5MCG/ACTUATION 4GM INH INH SCH (11:30)
[2025-11-01 15:33] VITALS: BP 133/71; TEMP 97.2; O2SAT 98
[2025-11-01] MEDS: LORazepam 0.5 MG TAB PO SCH (16:05)
[2025-11-02 06:22] VITALS: BP 116/79; TEMP 97.5; O2SAT 97
[2025-11-02 14:44] VITALS: BP 128/76; TEMP 97.5; O2SAT 98
[2025-11-02] MEDS: LORazepam 1 MG TAB PO PRN (19:27)
[2025-11-03 06:05] VITALS: BP 128/69; TEMP 97.2; O2SAT 98
[2025-11-03 08:04] LABS: BASO # 0.1 10^3/uL (0.0-0.2); BASO % 0.9 % (0.0-1.0); EOS # 0.2 10^3/uL (0.0-0.5); EOS % 2.3 % (0.0-3.0); LYMPH # 3.2 10^3/uL (1.5-5.0); LYMPH % 37.1 % (24.0-44.0); MONO # 1.0 10^3/uL (0.0-0.8); MONO % 11.0 % (2.0-8.0); NEUTROPHILS # 4.2 10^3/uL (1.5-8.5); NEUTROPHILS % 48.5 % (36.0-66.0); PLATELET COUNT, AUTOMATED 231 10^3/uL (150-450)
[2025-11-03 15:23] VITALS: BP 116/68; TEMP 97.5; O2SAT 98
[2025-11-04 06:12] VITALS: BP 125/72; TEMP 97.3; O2SAT 97
[2025-11-04] MEDS: VENLAFAXINE **XR** 75MG CAPSULE PO SCH (08:26)
[2025-11-04 15:29] VITALS: BP 130/67; TEMP 97.5; O2SAT 98
[2025-11-05 06:20] VITALS: BP 142/66; TEMP 98; O2SAT 99
[2025-11-05] MEDS: PROPRANOLOL 10 MG TAB PO PRN (12:54)
[2025-11-05 16:38] VITALS: BP 135/86; TEMP 97.4; O2SAT 99
[2025-11-05 20:14] VITALS: BP 112/78
[2025-11-06 06:29] VITALS: BP 120/76; TEMP 97.8; O2SAT 97
[2025-11-06 15:05] VITALS: BP 115/77; TEMP 98.4; O2SAT 97
[2025-11-07 06:38] VITALS: BP 154/82; TEMP 97.3; O2SAT 97
[2025-11-07] MEDS ORDERED: CLOZ25TA6 PO (08:14)
[2025-11-07] MEDS: SALIVA SUBSTITUTE BTL MT PRN (08:53)
== END 2025-11-07 13:11 | disposition home or self-care (01) | DRG 885 ==
LOC: M ED 16:25 → M ED INP 20:34 → M PSY 21:46
PROVIDERS: ADMIT Student in an Organized Health Care Education/Training Program; ATTEND Psychiatry & Neurology Psychiatry
DX: F25.0 Schizoaffective disorder, bipolar type (principal); G21.19 Other drug induced secondary parkinsonism; R45.851 Suicidal ideations; F41.1 Generalized anxiety disorder; F17.210 Nicotine dependence, cigarettes, uncomplicated; N40.0 Benign prostatic hyperplasia without lower urinary tract symptoms; E78.5 Hyperlipidemia, unspecified; J44.9 Chronic obstructive pulmonary disease, unspecified; E03.9 Hypothyroidism, unspecified; E55.9 Vitamin D deficiency, unspecified; Z81.8 Family history of other mental and behavioral disorders; Z91.51 Personal history of suicidal behavior; Z91.52 Personal history of nonsuicidal self-harm; Z79.890 Hormone replacement therapy; Z79.899 Other long term (current) drug therapy; Z88.8 Allergy status to other drugs, medicaments and biological substances